=== PATIENT | female | born 1960 | race Caucasian/White ===

== ENCOUNTER 2017-06-05 05:33 | Outpatient (CLI) | payer OTHER ==
[~2017-06-05] VITALS: Ht 157.5 cm; Wt 82.6 kg
[~2017-06-05 05:33] MED LIST: ASP81CT PO; ATEN25TA PO; CALC-80 PO; CYCL5TAB11 PO; DOCU100T7 PO; FLAX100031 PO; LNS30CCR; MAGN400C PO; OMNARIS; SUMA1TAB PO
[2017-06-05] MEDS ORDERED: SUMA1TAB PO (10:04)
[2017-06-05] MEDS ORDERED: ATEN25TA PO (10:04)
[2017-06-05] MEDS ORDERED: MAGN500C16 PO (10:04)
[2017-06-05] MEDS ORDERED: ASPI-999 PO (10:04)
[2017-06-05] MEDS ORDERED: LANS30CA PO (10:04)
[2017-06-05] MEDS ORDERED: NAPR220T66 PO (10:05)
== END 2017-06-05 10:07 ==
LOC: PREOP 05:33
PROVIDERS: ATTEND Surgery
DX: Z01.818 Encounter for other preprocedural examination (principal); Z86.010 Personal history of colon polyps

== ENCOUNTER 2017-06-12 06:56 | Day surgery (SDC) | payer BC, OTHER ==
[~2017-06-12] VITALS: Ht 157.5 cm; Wt 82.6 kg
[~2017-06-12 06:56] MED LIST changes: +ASPI-999 PO; +LANS30CA PO; +MAGN500C16 PO; +NAPR220T66 PO
--- OUTSIDE RECORDS SUMMARY | 2017-06-12 07:00 | XMS REPORT | Continuity of Care Document ---
Author Author [facility] Organization [facility] Address Unknown Phone Unavailable Allergies Active Description Code Type Severity Reaction Onset Reported/Identified Relationship to Patient Clinical Status Yes PCN PCN Unknown HIVES 10/31/2011 Yes Penicillins [id number] Drug Allergy Mild HIVES 06/05/2017 Medications There is no data. Problems Date Dx Coded Attending Type Code Diagnosis Diagnosed By 06/05/2017 JULIANA VEGA MD Ot Z01.818 ENCOUNTER FOR OTHER PREPROCEDURAL EXAMIN 06/05/2017 JULIANA VEGA MD Ot Z86.010 PERSONAL HISTORY OF COLONIC POLYPS 06/06/2017 JULIANA VEGA MD Ot Z01.818 ENCOUNTER FOR OTHER PREPROCEDURAL EXAMIN 06/06/2017 JULIANA VEGA MD Ot Z86.010 PERSONAL HISTORY OF COLONIC POLYPS 06/09/2017 YOLIS COLORADO Ot 786.2 COUGH Procedures There is no data. Results There is no data. Encounters ACCT No. Visit Date/Time Discharge Status Pt. Type Provider Facility Loc./Unit Complaint [id number] 06/05/2017 05:33:00 06/05/2017 10:07:00 DIS Outpatient JULIANA VEGA MD [facility] PREOP COLONOSCOPY [id number] 05/31/2013 11:52:00 05/31/2013 23:59:59 CLS Outpatient YOLIS COLORADOP [facility] RAD COUGH [id number] 06/12/2017 08:00:00 PEN Preadmit JULIANA VEGA MD [facility] ENDO PERSONAL HX POLYPS
[2017-06-12] MEDS ORDERED: NS IV 500 ML 500 ML IV PRN (07:28)
[2017-06-12 07:31] VITALS: BP 132/88
[2017-06-12] MEDS ORDERED: fentaNYL INJECTION 100 MCG/2 ML AMP ONE (08:27)
[2017-06-12] MEDS ORDERED: MIDAZOLAM 2 MG/2 ML (VERSED) VIAL ONE ×4 (08:27)
[2017-06-12] MEDS: MIDAZOLAM 2 MG/2 ML (VERSED) VIAL IVP PRN ×3 (08:29→08:36)
[2017-06-12] MEDS: fentaNYL INJECTION 100 MCG/2 ML AMP IVP PRN ×2 (08:31→08:35)
--- NOTE | 2017-06-12 08:32 | Conscious Sedation/ASA ---
Conscious Sedation Pre-Proced Time Reviewed: 08:32 ASA Class: 2 Airway Mallampati Classification: ([place] appropriate class) I. II. III, IV Lungs Heart ASA score ASA 1: a normal healthy patient ASA 2: a patient with a mild systemic disease (mid diabetes, controlled hypertension, obesity ASA 3: a patient with a severe systemic disease that limits activity (angina , COPD, prior Myocardial infarction) ASA 4: a patient with an incapacitating disease that is a constant threat to life (CHF, renal failure) ASA 5: a moribund patient not expected to survive 24 hrs. (ruptured aneurysm) ASA 6: a declared brain patient whose organs are being harvested. For emergent operations, add the letter E after the classification Grade 1 Sedation Plan: Discussed options with patient/fam Note The patient is an appropriate candidate to undergo the planned procedure, sedation, and anesthesia. The patient immediately re-assessed prior to indication. JULIANA VEGA MD Jun 12, 2017 8:32 am
--- NOTE | 2017-06-12 08:32 | History & Physicial ---
History of Present Illness History of Present Illness Reason for visit/HPI to undergo surveillance colonoscopy. Personal history of adenomatous polyps and both her parents have demised of colon cancer. Date of Admission 06/12/17 Date Seen by Provider: Jun 12, 2017 Time Seen by Provider: 08:30 I consulted on this patient on 06/12/17 08:29 Attending Physician Juliana Long MD Admitting Physician Caren Anders DO Consult Allergies and Home Medications Allergies Coded Allergies: Penicillins (Verified Allergy, Mild, HIVES, 06/05/17) Home Medications Aspirin 81 Mg Tab.chew, 81 MG PO DAILY, (Reported) Atenolol 25 Mg Tablet, 25 MG PO DAILY, (Reported) Lansoprazole 30 Mg Capsule.dr, 30 MG PO BID, (Reported) Magnesium Oxide 500 Mg Capsule, 500 MG PO DAILY, (Reported) Naproxen Sodium 220 Mg Tablet, 220 MG PO DAILY, (Reported) Sumatriptan Succ/Naproxen Sod 1 Each Tablet, 1 EACH PO PRN, (Reported) Past [id number]-[id number]-Krafdw Hx Patient Social History Marrital Status: Employed/Student: employed Alcohol Use: Denies Use Recreational Drug Use: No Smoking Status: Never a Smoker Recent Foreign Travel: No Contact w/other who traveled: No Recent Hopitalizations: No Seasonal Allergies Seasonal Allergies: No Surgeries Yes Tubal Ligation Respiratory No Cardiovascular Yes Heart Murmur, Hypertension Neurological Yes Headaches /Migraines Reproductive System : No Hx Reproductive Disorders: No Sexually Transmitted Disease: No HIV/AIDS: No Female Reproductive Disorders: Denies Genitourinary No Gastrointestinal Yes Gastroesophageal Reflux, Polyps Endocrine History of Endocrine Disorders: No HEENT History of HEENT Disorders: No Loss of Vision: Bilateral Hearing Impairment: Denies Cancer No Blood Transfusions Adverse Reaction to a Blood Tr: No (N/A) Constitutional: no symptoms reported EENTM: no symptoms reported Respiratory: no symptoms reported Cardiovascular: no symptoms reported Gastrointestinal: no symptoms reported Genitourinary: no symptoms reported Musculoskeletal: no symptoms reported Skin: no symptoms reported Psychiatric/Neurological: No Symptoms Reported Physical Exam Vital Signs Vital Sign - Last 12Hours 06/12/17 07:31 Temp 98.1 Pulse 82 Resp 18 B/P (MAP) 132/88 (103) Pulse Ox 96 O2 Delivery Room Air Capillary Refill : General Appearance: No Apparent Distress HEENT: Normal ENT Inspection Neck: Normal Inspection Respiratory: Lungs Clear Cardiovascular: Regular Rate, Rhythm Gastrointestinal: Non Tender, Soft Rectal: Deferred Extremity: Normal Inspection Neurologic/Psychiatric: Alert, Oriented x3 Skin: Warm/Dry Assessment/Plan Assessment and Plan lady with a personal history of adenomatous polyps. Strong family history of colon cancer. For surveillance colonoscopy. Problems: JULIANA LONG MD Jun 12, 2017 8:31 am
--- NOTE | 2017-06-12 08:47 | Endo Procedure Record ---
Endo Procedure Report Date of Procedure Last Colonoscopy: Yes (2012) Jun 12, 2017 Surgeon (s) JULIANA VEGA MD Post Procedure/Op Diagnosis Normal colonoscopy Procedure Performed Colonoscopy to cecum Description of Procedure Anesthesia Type: Conscious Sedation Specimen(s) collected/removed none Description of the Procedure indication for the procedure: This lady, with a personal history of adenomatous polyps and a recent family history of colon cancer in both of her parents, came in for surveillance colonoscopy. Informed consent was obtained after reviewing the procedure in detail. Description of the procedure: She was placed in left lateral decubitus position and her vital signs were monitored. Conscious sedation was achieved using Versed and fentanyl. Digital rectal examination was unremarkable. The colonoscope was then introduced in the rectum and advanced all the way up to the cecum The quality of bowel preparation was excellent The scope was then withdrawn slowly and the mucosa examined in a systematic fashion. There was no abnormality She tolerated the procedure well and was taken back to the nursing area in a stable condition Copies To: JET BERRY XAVIER M MD Jun 12, 2017 8:47 am
--- NOTE | 2017-06-12 08:48 | Discharge Inst-Simple/Standard ---
Discharge Inst-Standard Discharge Medications New, Converted or Re-Newed RX: Other Patient Instructions/Follow Up Plan of Care/Instructions/FU: Repeat colonoscopy in 3 years Activity as Tolerated: Yes Discharge Diet: No Restrictions JULIANA VEGA MD Jun 12, 2017 8:48 am
[2017-06-12 09:05] VITALS: BP 114/80
[2017-06-12 09:23] VITALS: BP 137/82
[2017-06-12 09:25] VITALS: BP 137/82
== END 2017-06-12 09:31 | disposition home or self-care (01) ==
LOC: ENDO 06:56
PROVIDERS: ATTEND Surgery
DX: Z09 Encounter for follow-up examination after completed treatment for conditions other than malignant neoplasm (principal); Z86.010 Personal history of colon polyps; Z80.0 Family history of malignant neoplasm of digestive organs; Z79.899 Other long term (current) drug therapy; Z88.0 Allergy status to penicillin; K21.9 Gastro-esophageal reflux disease without esophagitis; I10 Essential (primary) hypertension

== ENCOUNTER → 2017-12-24 | Outpatient (CLI) | payer BC ==
--- NOTE | 2017-12-24 11:51 | Diagnostic Imaging Report ---
INDICATION: Left foot pain. COMPARISON: None. FINDINGS: Three views of the left foot demonstrate minimal degenerative joint disease. No bony erosion is seen. There is no fracture or dislocation. Calcaneal osteophytosis is seen. There is no foreign body. IMPRESSION: Minimal degenerative changes. No fracture or dislocation. Dictated by: Dictated on workstation # [id number]
== END ==
LOC: RAD 11:15
PROVIDERS: ATTEND Family Medicine
DX: M79.672 Pain in left foot (principal)
CPT/HCPCS: 73630

== ENCOUNTER 2019-10-11 18:22 | Emergency (ER) | payer SELFPAY ==
[~2019-10-11] VITALS: Ht 157.4 cm; Wt 90.7 kg
--- OUTSIDE RECORDS SUMMARY | 2019-10-11 18:29 | XMS REPORT | CCD ---
Author Author Claudia Anders D.O. Organization 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 Name Role Phone Caren Anders D.O., PP Unavailable CCM Unavailable Summary Purpose Interface Exchange Insurance Providers Payer name Policy type / Coverage type Covered constitution party ID Effective Begin Date Effective End Date Blue Cross Blue Shield Blue Cross/Blue Shield [id number] Unknown Family history Father Diagnosis Age At Onset Congestive heart failure Unknown Cancer Unknown Diabetes mellitus Type 2 Unknown Social History Social History Element Codes Description Effective Dates Tobacco history SNOMED CT: 1786250 Former smoker 02/03/2015 Allergies, Adverse Reactions, Alerts Substance Reaction Codes Entered Date Inactivated Date Status * NO KNOWN FOOD ALLERGIES Unknown 09/01/2009 No Inactiv e Date Active PENICILLINS hives Unknown 09/01/2009 No Inactive Date Active _ Unknown 09/01/2009 No Inactive Date Active Problems Condition Codes Effective Dates Condition Status Encounter for therapeutic drug level monitoring ICD-9: V58.83 ICD-10: Z51.81 01/15/2019 Active Essential (primary) hypertension ICD-9: 401.9 ICD-10: I10 06/30/2014 Active Acute bronchitis, unspecified ICD-9: 466.0 ICD-10: J20.9 07/20/2018 Active Acute recurrent maxillary sinusitis ICD-9: 461.0 ICD-10: J01.01 07/20/2018 Active Encounter for general adult medical examination withou t abnormal findings ICD-9: V70.9 ICD-10: Z00.00 08/03/2015 Active Mixed hyperlipidemia ICD-9: 272.4 ICD-10: E78.2 07/29/2014 Active Encounter for screening mammogram for malignant neopla sm of breast ICD-9: V76.12 ICD-10: Z12.31 08/02/2016 Active Migraine with aura, not intractable, without status mi grainosus ICD-9: 346.20 ICD-10: G43.109 06/11/2018 Active VACCINE FOR TDAP ICD-9: V06.1 ICD-10: Z23 06/11/2018 Active Encounter for gynecological examination (general) (routine) without abnormal findings ICD-9: V72.31 ICD-10: Z01.419 04/05/2017 Active Pain in unspecified joint ICD-9: 719.40 ICD-10: M25.50 04/05/2017 Active Persistent migraine 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 cerebra l infarction, intractable, with status migrainosus ICD-9: 346.53 ICD-10: G43.511 03/09/2015 Active Acute maxillary sinusitis, unspecified ICD-9: 461.0 ICD-10: J01.00 02/11/2016 Active Acute upper respiratory infection, unspecified ICD-9: 465.9 ICD-10: J06.9 02/11/2016 Active Urinary tract infection, site not specified ICD-9: 599 .0 ICD-10: N39.0 10/01/2015 Active Migraine, unspecified, not intractable, without status migrainosus ICD-9: 346.90 ICD-10: G43.909 06/30/2014 Active Anemia, unspecified ICD-9: 285.9 ICD-10: D64.9 07/29/2014 Active Dysuria ICD-9: 788.1 ICD-10: R30.0 05/26/2015 Active Menopausal and female climacteric states ICD-9: 627.2 ICD-10: N95.1 05/26/2015 Active Unspecified convulsions ICD-9: 780.39 ICD-10: R56.9 03/09/2015 Active ANEMIA NOS ICD-9: 285.9 07/29/2014 Active HYPERLIPIDEMIA NEC/NOS ICD-9: 272.4 07/29/2014 Active MALAISE AND FATIGUE ICD-9: 780.79 07/29/2014 Active GERD ICD-9: 530.81 06/30/2014 Active HYPERTENSION ICD-9: 401.9 06/30/2014 Active MIGRAINE NOS/NOT INTRCBL ICD-9: 346.90 06/30/2014 Active ROUTINE MEDICAL EXAM ICD-9: V70.0 06/30/2014 Active ALLERGIC RHINITIS ICD-9: 477.9 08/12/2013 Active BRONCHITIS, ACUTE ICD-9: 466.0 05/31/2013 Active HEMATURIA NOS ICD-9: 599.70 05/31/2013 Active FEBRILE ILLNESS ICD-9: 780.60 05/27/2013 Active DERMATITIS NOS ICD-9: 692.9 02/26/2013 Active Tinea cruris ICD-9: 110.3 02/26/2013 Active Myalgia ICD-9: 729.1 07/30/2012 Active Joint pain ICD-9: 719.40 06/04/2012 Active Hemorrhoid ICD-9: 455.6 10/07/2011 Active Rash ICD-9: 782.1 10/07/2011 Active DIZZINESS/VERTIGO ICD-9: 780.4 09/05/2011 Active EUSTACHIAN TUBE DYSFUNCTION ICD-9: 381.81 09/05/2011 Acti ve Plantar warts ICD-9: 078.12 09/05/2011 Active DIARRHEA ICD-9: 787.91 04/28/2011 Active PHARYNGITIS, ACUTE ICD-9: 462 04/28/2011 Active Finger pain ICD-9: 729.5 04/13/2011 Active Metrorrhagia ICD-9: 626.6 04/13/2011 Active Nasal pain ICD-9: 478.19 04/13/2011 Active Frequent urination ICD-9: 788.41 02/04/2011 Active Constipation ICD-9: 564.00 04/14/2010 Active COUGH ICD-9: 786.2 02/03/2010 Active SINUSITIS, ACUTE ICD-9: 461.9 02/03/2010 Active Migraine, variant ICD-9: 346.20 01/27/2010 Active ALTERED MENTAL STATUS ICD-9: 780.97 01/25/2010 Active CEPHALGIA ICD-9: 784.0 01/25/2010 Active TREMOR NEC ICD-9: 333.1 01/25/2010 Active ROUTINE GYNE EXAM ICD-9: V72.31 12/08/2009 Active Gastroesophageal reflux disease Unknown 09/01/2009 Active Hypertension Unknown 09/01/2009 Active PAIN, LOWER BACK ICD-9: 724.2 09/01/2009 Active SPASM OF MUSCLE ICD-9: 728.85 09/01/2009 Active URINARY TRACT INFECTION ICD-9: 599.0 08/26/2009 Active Medications Medication Codes Instructions Start Date Stop Date Status Fill Instructions Zantac 300 mg tablet RxNorm: 836021 TAKE ONE TABLET BY MOUTH EVERY NIGHT AT BEDTIME 07/15/2019 No Stop Date Active tizanidine 4 mg tablet RxNorm: 181959 TAKE ONE TABLET B Y MOUTH EVERY 8 HOURS NEEDED FOR MUSCLE SPASMS 06/18/2019 No Stop Date Active atenolol 25 mg tablet RxNorm: 033389 TAKE ONE TABLET BY MOUTH DAILY 06/18/2019 No Stop Date Active Naprosyn 500 mg tablet RxNorm: 588864 TAKE ONE TABLET BY MOUTH TWO TIMES A DAY 05/16/2019 No Stop Date Active atenolol 25 mg tablet RxNorm: 236515 Tablet(s) Oral PATEL E ONE TABLET BY MOUTH DAILY, 02/04/2019 06/03/2019 Inactive Maxalt 10 mg tablet RxNorm: 485167 TAKE ONE TABLET BY M OUTH AT HEADACHE ONSET. MAY REPEAT IN 2 HOURS IF HEADACHE REMAINS. MAX OF 2 TABLETS IN 24 HOURS 01/17/2019 02/12/2019 Inactive Zantac 300 mg tablet RxNorm: 940000 TAKE ONE TABLET BY MOUTH EVERY NIGHT AT BEDTIME 01/15/2019 03/15/2019 Inactive atenolol 25 mg tablet RxNorm: 845486 Tablet(s) TAKE ONE TABLET BY MOUTH DAILY, NEEDS APPT. BEFORE FURTHER REFILLS 01/08/2019 02/03/2019 Inactive atenolol 25 mg tablet RxNorm: 003817 Tablet(s) TAKE ONE TABLET BY MOUTH DAILY, NEEDS APPT. BEFORE FURTHER REFILLS 12/31/2018 02/04/2019 Inactive atenolol 25 mg tablet RxNorm: 256745 TAKE ONE TABLET BY MOUTH DAILY, NEEDS APPT. BEFORE FURTHER REFILLS 12/14/2018 12/31/2018 Inactive tizanidine 4 mg tablet RxNorm: 206121 TAKE ONE TABLET B Y MOUTH EVERY 8 HOURS NEEDED FOR MUSCLE SPASMS 11/16/2018 12/25/2018 Inactive Naprosyn 500 mg tablet RxNorm: 151544 1 Tablet(s) PO BID 10/01/2018 0 05/15/2019 Inactive atenolol 25 mg tablet RxNorm: 301958 Tablet(s) TAKE ONE TABLET BY MOUTH DAILY. 10/01/2018 12/13/2018 Inactive Maxalt 10 mg tablet RxNorm: 511204 1 Tablet(s) PO at he adache onset. May repeat in 2 hours if headache remains. Max of 2/24hr 10/01/2018 11/29/2018 In active atenolol 25 mg tablet RxNorm: 925928 TAKE ONE TABLET BY MOUTH DAILY. NEED APPOINTMENT BEFORE FURTHER REFILLS. 09/24/2018 09/30/2018 Inactive atenolol 25 mg tablet RxNorm: 826186 TAKE ONE TABLET BY MOUTH DAILY, NEEDS APPT. BEFORE FURTHER REFILLS 09/11/2018 09/23/2018 Inactive Naprosyn 500 mg tablet RxNorm: 640874 1 Tablet(s) PO BI D Due for annual labs and appointment 09/11/2018 09/30/2018 Inactive atenolol 25 mg tablet RxNorm: 167875 TAKE ONE TABLET BY MOUTH DAILY, NEEDS APPT. BEFORE FURTHER REFILLS 08/29/2018 09/10/2018 Inactive doxycycline hyclate 100 mg tablet RxNorm: 5086641 1 Tablet(s) PO BI D 07/27/2018 08/05/2018 Inactive doxycycline hyclate 100 mg tablet RxNorm: 9850318 1 Tablet(s) PO BI D 07/27/2018 07/26/2018 Inactive Ventolin HFA 90 mcg/actuation aerosol inhaler RxNorm: 0573152 2 Puff(s) INH Q6H 07/20/2018 08/18/2018 Inactive prednisone 20 mg tablet RxNorm: 842633 take 2 tabs for 3 days, then 1 tab for 3 days 07/20/2018 07/25/2018 Inactive azithromycin 250 mg tablet RxNorm: 760634 Take 2 tabs t cate and one tab days 2-5 07/20/2018 07/25/2018 Inactive z-pack atenolol 25 mg tablet RxNorm: 486764 TAKE ONE TABLET BY MOUTH DAILY, NEEDS APPT. BEFORE FURTHER REFILLS 07/13/2018 08/26/2018 Inactive mupirocin 2 % topical cream RxNorm: 124984 Application TOP BID 05/1601/14/2019 Inactive Valtrex 1 gram tablet RxNorm: 265615 1 Tablet(s) PO BID 06/11/2018 Inactive atenolol 25 mg tablet RxNorm: 049489 1 Tablet(s) PO QD NEEDS APPOINTMENT BEFORE FURTHER REFILLS 05/14/2018 07/12/2018 Inactive Naprosyn 500 mg tablet RxNorm: 082303 1 Tablet(s) PO BI D Due for annual labs and appointment 04/12/2018 05/11/2018 Inactive Zantac 300 mg tablet RxNorm: 958793 TAKE ONE TABLET BY MOUTH EVERY NIGHT AT BEDTIME 04/09/2018 07/07/2018 Inactive tizanidine 4 mg tablet RxNorm: 722196 TAKE ONE TABLET B Y MOUTH EVERY 8 HOURS NEEDED FOR MUSCLE SPASMS 02/20/2018 04/20/2018 Inactive Maxalt 10 mg tablet RxNorm: 251476 Tablet(s) TAKE ONE T ABLET BY MOUTH NEEDED FOR HEADACHE 01/09/2018 03/09/2018 Inactive Naprosyn 500 mg tablet RxNorm: 911986 Tablet(s) TAKE ON E TABLET BY MOUTH TWICE A DAY 01/08/2018 04/12/2018 Inactive atenolol 25 mg tablet RxNorm: 878889 1 Tablet(s) PO QD 01/08/2018 Inactive Naprosyn 500 mg tablet RxNorm: 205933 TAKE ONE TABLET BY MOUTH TWICE A DAY 12/10/2017 01/08/2018 Inactive tizanidine 4 mg tablet RxNorm: 189502 1 Tablet(s) PO Q8 H as needed for muscle spasm 11/27/2017 11/26/2017 Inactive Maxalt 10 mg tablet RxNorm: 431413 TAKE ONE TABLET BY M OUTH NEEDED FOR HEADACHE 11/13/2017 01/09/2018 Inactive Naprosyn 500 mg tablet RxNorm: 093523 TAKE ONE TABLET BY MOUTH TWICE A DAY 11/13/2017 12/09/2017 Inactive atenolol 25 mg tablet RxNorm: 022451 1 Tablet(s) PO QD 09/06/2017 Inactive Naprosyn 500 mg tablet RxNorm: 783685 1 Tablet(s) PO BID 09/04/2017 0 11/02/2017 Inactive Maxalt 10 mg tablet RxNorm: 418772 1 Tablet(s) PO as needed for headache 08/07/2017 11/12/2017 Inactive Naprosyn 500 mg tablet RxNorm: 707784 1 Tablet(s) PO BID 07/07/2017 0 09/04/2017 Inactive Naprosyn 500 mg tablet RxNorm: 862262 1 Tablet(s) PO BI D TAKE ONE TABLET BY MOUTH TWICE A DAY 06/08/2017 07/07/2017 Inactive tizanidine 4 mg tablet RxNorm: 407271 1 Tablet(s) PO Q8 H as needed for muscle spasm 05/10/2017 11/27/2017 Inactive atenolol 25 mg tablet RxNorm: 619545 1 Tablet(s) PO QD 05/10/2017 Inactive Maxalt 10 mg tablet RxNorm: 854802 1 Tablet(s) PO as needed for headache 05/10/2017 08/06/2017 Inactive atenolol 25 mg tablet RxNorm: 440257 1 Tablet(s) PO QD LAST REFILL---NEEDS UPDATED LAB AND APPOINTMENT 04/04/2017 05/03/2017 Inactive Zantac 300 mg tablet RxNorm: 941937 Tablet(s) TAKE ONE TABLET BY MOUTH EVERY NIGHT AT BEDTIME 04/03/2017 07/31/2017 Inactive atenolol 25 mg tablet RxNorm: 958258 1 Tablet(s) PO QD LAST REFILL---NEEDS UPDATED LAB AND APPOINTMENT 03/02/2017 04/04/2017 Inactive atenolol 25 mg tablet RxNorm: 494984 1 Tablet(s) PO QD LAST REFILL---NEEDS UPDATED LAB AND APPOINTMENT 02/01/2017 05/10/2017 Inactive Naprosyn 500 mg tablet RxNorm: 117541 1 Tablet(s) PO BI D TAKE ONE TABLET BY MOUTH TWICE A DAY 01/02/2017 06/08/2017 Inactive atenolol 25 mg tablet RxNorm: 721352 1 Tablet(s) PO QD Need Labs and appointment 12/26/2016 02/01/2017 Inactive Naprosyn 500 mg tablet RxNorm: 455329 1 Tablet(s) PO BI D TAKE ONE TABLET BY MOUTH TWICE A DAY 12/05/2016 01/02/2017 Inactive Naprosyn 500 mg tablet RxNorm: 385917 Tablet(s) TAKE ON E TABLET BY MOUTH TWICE A DAY 11/07/2016 12/05/2016 Inactive Naprosyn 500 mg tablet RxNorm: 034370 Tablet(s) TAKE ON E TABLET BY MOUTH TWICE A DAY 10/06/2016 11/07/2016 Inactive Naprosyn 500 mg tablet RxNorm: 391525 TAKE ONE TABLET BY MOUTH TWICE A DAY 09/04/2016 10/03/2016 Inactive Naprosyn 500 mg tablet RxNorm: 808028 TAKE ONE TABLET BY MOUTH TWICE A DAY 07/01/2016 08/29/2016 Inactive Naprosyn 500 mg tablet RxNorm: 908132 TAKE ONE TABLET BY MOUTH TWICE A DAY 04/27/2016 06/25/2016 Inactive Zantac 300 mg tablet RxNorm: 691209 TAKE ONE TABLET BY MOUTH EVERY NIGHT AT BEDTIME 03/09/2016 04/03/2017 Inactive Levaquin 500 mg tablet RxNorm: 415390 1 Tablet(s) PO QD 02/12/2016 Inactive azithromycin 250 mg tablet RxNorm: 401311 2 Tablet(s) P O on day one then 1 tab on days 2-5 01/25/2016 01/24/2016 Inactive Medrol (Camilo) 4 mg tablets in a dose pack RxNorm: 650745 Take as directed 01/25/2016 04/04/2017 Inactive Naprosyn 500 mg tablet RxNorm: 704005 1 Tablet(s) PO BID 01/15/2016 1 06/13/2015 Inactive Brisdelle 7.5 mg capsule RxNorm: 2852462 1 Capsule(s) PO QHS 201504/04/2017 Inactive atenolol 25 mg tablet RxNorm: 277690 TAKE ONE TABLET BY MOUTH DAILY 12/04/2015 12/26/2016 Inactive Maxalt 10 mg tablet RxNorm: 208420 1 Tablet(s) PO as needed for headache 10/05/2015 05/09/2017 Inactive Bactrim DS 800 mg-160 mg tablet RxNorm: 488071 1 Tablet(s) PO BID 0 10/01/2015 10/07/2015 Inactive Zantac 300 mg tablet RxNorm: 615114 Tablet(s) TAKE ONE TABLET BY MOUTH EVERY NIGHT AT BEDTIME 10/01/2015 11/29/2015 Inactive atenolol 25 mg tablet RxNorm: 218181 TAKE ONE TABLET BY MOUTH DAILY 06/09/2015 08/07/2015 Inactive Naprosyn 500 mg tablet RxNorm: 793559 TAKE ONE TABLET BY MOUTH TWICE A DAY 05/29/2015 01/15/2016 Inactive Zantac 300 mg tablet RxNorm: 296491 Tablet(s) TAKE ONE TABLET BY MOUTH EVERY NIGHT AT BEDTIME 03/30/2015 10/01/2015 Inactive Compazine 10 mg tablet RxNorm: 842414 1 Tablet(s) PO TID as nee ded for nausea 03/10/2015 05/26/2015 Inactive Prevacid 30 mg capsule,delayed release RxNorm: 514481 C apsule(s) TAKE ONE CAPSULE BY MOUTH ONCE A DAY 12/19/2014 05/17/2015 Inactive Naprosyn 500 mg tablet RxNorm: 156865 1 Tablet(s) PO BID 12/02/2014 1 Inactive Zantac 300 mg tablet RxNorm: 782684 TAKE ONE TABLET BY MOUTH EVERY NIGHT AT BEDTIME 09/18/2014 03/30/2015 Inactive Naprosyn 500 mg tablet RxNorm: 804873 1 Tablet(s) PO BID 09/04/2014 0 12/02/2014 Inactive atenolol 25 mg tablet RxNorm: 119653 1 Tablet(s) PO QD 07/17/2014 Inactive Zantac 300 mg tablet RxNorm: 514981 1 Tablet(s) PO QHS 06/30/201410/2014 Inactive Lamisil 250 mg tablet RxNorm: 046703 1 Tablet(s) PO QD 06/30/2014 Inactive Treximet 85 mg-500 mg tablet RxNorm: 520948 Tablet(s) PO PRN as needed 06/30/2014 03/09/2015 Inactive Prevacid 30 mg capsule,delayed release RxNorm: 654182 T VI ONE CAPSULE BY MOUTH ONCE A DAY 06/16/2014 12/19/2014 Inactive Treximet 85 mg-500 mg tablet RxNorm: 657490 Tablet(s) PO PRN as needed 06/06/2014 06/29/2014 Inactive Pepcid 20 mg tablet RxNorm: 421675 1 Tablet(s) PO QHS 03/19/201406/15 Inactive [SAVINGS FOR UNINSURED PATIENTS -- BIN:0 89977, PCN: [id number], Group: [id number], ID# [id number], Process claim through [employer], for questions: . THIS IS NOT INSURANCE.] atenolol 25 mg tablet RxNorm: 018404 1 Tablet(s) PO QD 01/15/201409/2014 Inactive Pepcid 20 mg tablet RxNorm: 387449 1 Tablet(s) PO QHS 12/23/201312/13 Inactive Pepcid 20 mg tablet RxNorm: 303002 1 Tablet(s) PO QHS 12/23/201309/2013 Inactive [SAVINGS FOR UNINSURED PATIENTS -- BIN:0 10630, PCN: [id number], Group: [id number], ID# [id number], Process claim through [employer], for questions: . THIS IS NOT INSURANCE.] Prevacid 30 mg capsule,delayed release RxNorm: 239932 1 Capsule (s) PO QD 12/23/2013 06/15/2014 Inactive [SAVINGS FOR UNINSUR ED PATIENTS -- BIN:[id number], PCN: [id number], Group: [id number], ID# [id number], Process claim through [employer], for questions: . THIS IS NOT INSURANCE.] loratadine 10 mg tablet RxNorm: 631851 TAKE ONE TABLET BY MOUTH EVERY MORNING 09/09/2013 04/06/2014 Inactive nystatin-triamcinolone 100,000 unit/g-0.1 % topical cream Rx Norm: 1047544 1 Application TOP QHS to rash 08/22/2013 06/29/2014 Inactive prednisone 20 mg tablet RxNorm: 326596 1 Tablet(s) PO BID 08/12/2013 08/18/2013 Inactive loratadine 10 mg tablet RxNorm: 726407 1 Tablet(s) PO QAM 08/12/2013 09/08/2013 Inactive Treximet 85 mg-500 mg tablet RxNorm: 952641 Tablet(s) PO PRN 201307/21/2013 Inactive atenolol 25 mg tablet RxNorm: 535224 1 Tablet(s) PO QD 07/22/201307/2013 Inactive Prevacid 30 mg capsule,delayed release RxNorm: 906161 1 Capsule (s) PO BID 07/22/2013 12/22/2013 Inactive nitrofurantoin macrocrystal 100 mg capsule RxNorm: 032744 1 Cap violeta(s) PO BID 05/31/2013 06/06/2013 Inactive albuterol sulfate HFA 90 mcg/actuation aerosol inhaler RxNor m: 912945 2 Puff(s) INH QID 05/31/2013 06/13/2013 Inactive azithromycin 250 mg tablet RxNorm: 131195 2 Tablet(s) PO QD 014 06/02/2013 Inactive Prevacid 30 mg capsule,delayed release RxNorm: 512461 1 Capsule (s) PO BID 03/20/2013 07/21/2013 Inactive Lamisil 250 mg tablet RxNorm: 918605 1 Tablet(s) PO QD 02/26/201304/2014 Inactive betamethasone valerate 0.1 % Topical Cream RxNorm: 882364 1 Tom lication TOP BID 11/29/2012 12/12/2012 Inactive Diflucan 100 mg tablet RxNorm: 821339 1 Tablet(s) PO QD 11/29/2012 Inactive nystatin 100,000 unit/gram Topical Powder RxNorm: 656843 1 Gram(s) TOP BID apply to affected areas twice daily 11/29/2012 12/08/2012 Inactive Medrol (Camilo) 4 mg tablets in a dose pack RxNorm: 665410 Tablet(s) PO as directed 11/12/2012 02/25/2013 Inactive Levaquin 750 mg tablet RxNorm: 498031 1 Tablet(s) PO QD antibiotic 11/12/2012 11/21/2012 Inactive Prevacid 30 mg capsule,delayed release RxNorm: 396473 1 Capsule (s) PO BID 09/17/2012 03/15/2013 Inactive azithromycin 250 mg tablet RxNorm: 746779 2 Tablet(s) PO QD 013 08/06/2012 Inactive nystatin 100,000 unit/g Ointment RxNorm: 059077 1 Gram( s) TOP BID apply to affected area twice daily 06/21/2012 06/30/2012 Inactive nystatin 100,000 unit/g Ointment RxNorm: 567066 1 Gram( s) TOP BID apply to affected area twice daily 06/04/2012 06/13/2012 Inactive Prevacid 30 mg capsule,delayed release RxNorm: 840143 1 Capsule (s) PO BID 03/01/2012 08/27/2012 Inactive Omnaris 50 mcg Nasal [place] RxNorm: 126622 2 [place] NASAL QD each nostril 12/21/2011 03/09/2015 Inactive betamethasone valerate 0.1 % Topical Cream RxNorm: 313084 1 Tom lication TOP BID 10/07/2011 10/20/2011 Inactive dibucaine 1 % Rectal Ointment RxNorm: 033792 1 RTL TID 10/07/2011 Inactive Proctofoam 1 % Topical Foam RxNorm: 724469 1 TOP BID 10/07/201107/2011 Inactive Treximet 85 mg-500 mg Tab RxNorm: 388423 Tablet(s) PO T vi 1 at headache onset and may repeat 1 in two hours if needed 09/05/2011 No Stop Date Active Prevacid 30 mg capsule,delayed release RxNorm: 991619 1 Capsule (s) PO BID 08/30/2011 02/25/2012 Inactive Flexeril 5 mg tablet RxNorm: 018202 1-2 Tablet(s) PO QHS 08/05/2011 0 06/29/2014 Inactive prn spasm cefuroxime axetil 500 mg Tab RxNorm: 308252 1 Tablet(s) PO BID 04/1405/07/2011 Inactive Flexeril 5 mg Tab RxNorm: 766905 1-2 Tablet(s) PO QHS 04/20/201107/14 Inactive prn spasm Prevacid 30 mg Capsule, delayed release RxNorm: 872829 1 Capsul e(s) PO BID 02/23/2011 08/30/2011 Inactive Prevacid 30 mg Cap RxNorm: 946408 1 Capsule(s) PO QD 02/21/201102/22 Inactive Pyridium 100 mg Tab RxNorm: 2040208 1 Tablet(s) PO TID 02/04/2011 Inactive will turn urine orange/red. Septra DS 800 mg-160 mg Tab RxNorm: 964915 1 Tablet(s) PO BID 02/0402/08/2011 Inactive lisinopril 10 mg Tab RxNorm: 763850 1 Tablet(s) PO QD 12/06/201012/14 Inactive amitriptyline 10 mg Tab RxNorm: 912917 2 Tablet(s) PO QD 12/06/2010 0 01/04/2011 Inactive Treximet 85 mg-500 mg Tab RxNorm: 064787 1 Tablet(s) PO 12/02/2010 Inactive at WONG onset, may repeat i po in 2hrs if WONG remains lisinopril 20 mg Tab RxNorm: 473879 1 Tablet(s) PO QD 09/10/201011/13 Inactive Prevacid 30 mg Cap RxNorm: 528068 1 Capsule(s) PO BID 08/09/201002/12 Inactive Flexeril 5 mg Tab RxNorm: 792921 1-2 Tablet(s) PO QHS prn spasm 05/200904/20/2011 Inactive Topamax 50 mg Tab RxNorm: 750473 1 Tablet(s) PO BID 02/16/20102009 Inactive Topamax 50 mg Tab RxNorm: 166197 1/2 Tablet(s) PO QHS for 1wk t hen 1 po QHS 02/15/2010 02/15/2010 Inactive Cefdinir 300 mg Cap RxNorm: 834793 1 Capsule(s) PO BID One tablet PO twice daily for 10 days. 02/03/2010 02/12/2010 Inactive Topamax 50 mg Tab RxNorm: 635424 1/2 Tablet(s) PO QHS for 1wk t hen 1 po QHS 01/27/2010 02/14/2010 Inactive Flexeril 5 mg Tab RxNorm: 168458 1 Tablet(s) PO TID prn spasm 01/2502/15/2010 Inactive Macrobid 100 mg Cap RxNorm: 2496479 1 Capsule(s) PO BID 09/01/2009 Inactive Prevacid 30 mg Cap RxNorm: 498671 1 Capsule(s) PO BID 09/01/200909/12 Inactive Flexeril 5 mg Tab RxNorm: 837421 1 Tablet(s) PO TID prn spasm 09/0109/30/2009 Inactive lisinopril 20 mg Tab RxNorm: 003299 1 Tablet(s) PO QD 08/31/200908/14 Inactive atenolol 25 mg Tab RxNorm: 278024 1 Tablet(s) PO QD No Start Date Inactive magnesium 100 mg tablet RxNorm: 1 Tablet(s) PO QD No Start Date Active Calcium with Vitamin D 600 mg-400 unit Tab RxNorm: 923668 1 Tab let(s) PO QD No Start Date Active Aspirin 81 mg Tab RxNorm: 793731 1 Tablet(s) PO QD No Start Date Active Brisdelle 7.5 mg capsule RxNorm: 3472259 1 Capsule(s) PO QHS No Sta rt Date 12/09/2015 Inactive Prevacid 30 mg Cap RxNorm: 985003 1 Capsule(s) PO QD No Start Date Inactive Ultram 50 mg Tab RxNorm: 043171 2 Tablet(s) PO QID prn headache No Start Date 04/13/2010 Inactive tizanidine 4 mg tablet RxNorm: 850942 1 Tablet(s) PO Q8 H as needed for muscle spasm No Start Date 05/09/2017 Inactive nystatin-triamcinolone 100,000 unit/g-0.1 % topical cream Rx Norm: 3632420 1 Application TOP QHS to rash No Start Date 08/21/2013 Inactive Imitrex 100 mg tablet RxNorm: 435205 1 Tablet(s) PO at WONG onset-September repeat in 6hours as needed No Start Date 08/03/2015 Inactive Treximet 85 mg-500 mg Tab RxNorm: 553247 1 Tablet(s) PO at WONG onset, may repeat i po in 2hrs if WONG remains No Start Date 12/02/2010 Inactive alprazolam 0.25 mg tablet RxNorm: 768088 1 Tablet(s) PO QPM No Star t Date 08/03/2015 Inactive amitriptyline 25 mg Tab RxNorm: 573803 1 Tablet(s) PO QAM No Start Date 12/06/2010 Inactive amitriptyline 10 mg Tab RxNorm: 710838 Tablet(s) PO Patel e 4 tablets by mouth 1 week before period and week of period and 3 tablets other 2 weeks of month No Start Date 09/04/2011 Inactive Omnaris 50 mcg Nasal [place] RxNorm: 8065026 2 [place] NASAL QD each nostril No Start Date 12/20/2011 Inactive sertraline 25 mg tablet RxNorm: 016221 1 Tablet(s) PO QD No Start D ate 08/03/2015 Inactive atenolol 25 mg tablet RxNorm: 085198 1 Tablet(s) PO QD No Start Date 07/21/2013 Inactive hydrochlorothiazide 25 mg tablet RxNorm: 560186 1 Tablet(s) PO QAM No Start Date 05/26/2015 Inactive Maxalt 10 mg tablet RxNorm: 389031 Tablet(s) PO as needed for h eadache No Start Date 10/04/2015 Inactive atenolol 25 mg Tab RxNorm: 890009 1/2 Tablet(s) PO QD No Start Date 0 12/20/2011 Inactive Medrol (Camilo) 4 mg tablets in a dose pack RxNorm: 408147 Tablet(s) PO as directed No Start Date 11/11/2012 Inactive Naprosyn 500 mg tablet RxNorm: 182252 1 Tablet(s) PO BID No Start D ate 09/04/2014 Inactive promethazine-codeine 6.25 mg-10 mg/5 mL syrup RxNorm: 428251 PO No Start Date 06/29/2014 Inactive Flexeril 5 mg Tab RxNorm: 212335 2 Tablet(s) PO QHS No Start Date Inactive Treximet 85 mg-500 mg tablet RxNorm: 697417 Tablet(s) PO PRN No Sta rt Date 07/21/2013 Inactive cyclobenzaprine 5 mg tablet RxNorm: 092494 1-2 Tablet(s) PO QHS No Start Date 03/09/2015 Inactive atenolol 25 mg tablet RxNorm: 034401 1 Tablet(s) PO QD No Start Date 12/25/2016 Inactive lisinopril 20 mg Tab RxNorm: 217949 1 Tablet(s) PO QD No Start Date 0 10/06/2011 Inactive Topamax 50 mg Tab RxNorm: 981738 1 Tablet(s) PO BID No Start Date 08/2009 Inactive Treximet 85 mg-500 mg Tab RxNorm: 985717 Tablet(s) PO T vi 1 at headache onset and may repeat 1 in two hours if needed No Start Date 09/04/2011 Inactive Stool Softener 100 mg Cap RxNorm: 9790715 3 Capsule(s) PO QD No Sta rt Date 06/29/2014 Inactive flax seed oil RxNorm: 1 PO QD No Start Date 03/09/2015 Inactive Medication Administered No Medication Administered data Immunizations Vaccine Codes Date Status Tetanus, Diptheria, Pertussis CVX: 115 06/11/2018 Co mplete Results Observation Observation Code Item Item Code Result Date S ervice Location COMPREHENSIVE METABOLIC 03905 AST 15 U/L 2018 Unknown COMPREHENSIVE METABOLIC 38953 ALT 15 U/L 2018 Unknown COMPREHENSIVE METABOLIC 72503 BUN 19 mg/dL 2018 Unknown COMPREHENSIVE METABOLIC 36999 ALBUMIN 4.3 g/dL 2018 Unknown COMPREHENSIVE METABOLIC 08063 CHLORIDE 106 mmol/L 06/29 Unknown COMPREHENSIVE METABOLIC 34147 Bili Total 0.6 mg/dL 06/29 Unknown COMPREHENSIVE METABOLIC 03310 ALK PHOS 82 U/L 2018 Unknown COMPREHENSIVE METABOLIC 82401 SODIUM 141 mmol/L 06/29 Unknown COMPREHENSIVE METABOLIC 85230 CREATININE 0.66 mg/dL 06/15 Unknown COMPREHENSIVE METABOLIC 14141 CALCIUM 9.6 mg/dL 2018 Unknown COMPREHENSIVE METABOLIC 94355 POTASSIUM 4.3 mmol/L 06/29 Unknown COMPREHENSIVE METABOLIC 89871 Total Protein 7.0 g/dL Unknown COMPREHENSIVE METABOLIC 20995 Glucose 102 mg/dL 2018 Unknown COMPREHENSIVE METABOLIC 59558 Bicarbonate 29 mmol/L 06/15 Unknown COMPREHENSIVE METABOLIC 01480 AGAP 6 mmol/L 2018 Unknown FREE T4 76660 T4 Free 1.04 ng/dL 06/29/2018 Unknown GFR CALC 1053479 GFR Non Afr Amr >60 mL/min 06/29/2018 Un known GFR CALC 3469212 GFR Afr Amr >60 mL/min 06/29/2018 Unknow n LIPID GROUP 71708 Cholesterol 197 mg/dL 06/29/2018 Unkno wn LIPID GROUP 21338 Triglyceride 70 mg/dL 06/29/2018 Unkn own LIPID GROUP 99067 HDL CHOLESTEROL 45 mg/dL 06/29/2018 U nknown LIPID GROUP 96438 Chol/HDL Ratio 4.38 ratio 06/29/2018 U nknown LIPID GROUP 52729 NON-HDL Chol 152 mg/dL 06/29/2018 Unkn own LIPID GROUP 25966 LDL Cholesterol 138 mg/dL 06/29/2018 U nknown THYROID STIMULATING HORMONE 25069 TSH 1.477 uIU/mL 06/29/2018 Unknown COMPLETE BLOOD COUNT 1695563 WBC 5.2 10e9/L 06/29/19 19 Unknown COMPLETE BLOOD COUNT 4930045 RBC 4.93 10e12/L 2018 Unknown COMPLETE BLOOD COUNT [id number] HEMOGLOBIN 14.3 g/dL 06/29/19 19 Unknown COMPLETE BLOOD COUNT [id number] HEMATOCRIT 42.9 % 06/29/19 19 Unknown COMPLETE BLOOD COUNT 7829956 MCV 87.0 fL 9 Unknown COMPLETE BLOOD COUNT 9138529 MCH 29.0 pg 9 Unknown COMPLETE BLOOD COUNT 3323625 MCHC 33.3 g/dL 9 Unknown COMPLETE BLOOD COUNT 6576748 PLATELET COUNT 289 10e9/L Unknown COMPLETE BLOOD COUNT 9143156 Mean Plt Volume 10.6 fL Unknown COMPLETE BLOOD COUNT 3116246 Neut Auto 74.1 % 9 Unknown COMPLETE BLOOD COUNT 9496344 Lymph Auto 14.7 % 06/29/19 19 Unknown COMPLETE BLOOD COUNT 7306743 [place] Auto 8.3 % 9 Unknown COMPLETE BLOOD COUNT 9929846 RDW 13.7 % 9 Unknown COMPLETE BLOOD COUNT 4798601 Eos Auto 2.7 % 9 Unknown COMPLETE BLOOD COUNT 8572811 Baso Auto 0.2 % 9 Unknown COMPLETE BLOOD COUNT 8394179 Neutrophil Abs 3.85 10e9/L Unknown COMPLETE BLOOD COUNT 3801417 Lymphocyte Abs 0.76 10e9/L Unknown COMPLETE BLOOD COUNT 1291122 Monocyte Abs 0.43 10e9/L 06/15 Unknown COMPLETE BLOOD COUNT 3417047 Eosinophil Abs 0.14 10e9/L Unknown COMPLETE BLOOD COUNT 6574731 RDW-SD 42.7 fL 9 Unknown COMPLETE BLOOD COUNT 9377433 Basophil Abs 0.01 10e9/L 06/15 Unknown IRON 79843 IRON TEST 42 UG/DL 07/31/2014 Unknown FERRITIN 32641 FERRITIN 10 NG/ML 07/31/2014 Unknown VITAMIN B 12 FOLIC ACID 54140|90608 VIT B 12 233 PG/ML 07/13 Unknown VITAMIN B 12 FOLIC ACID 44152|88444 FOLIC ACID 8.7 NG/ML Unknown COMPLETE BLOOD COUNT [id number] WBC 6.4 10e9/L 07/30/19 15 Unknown COMPLETE BLOOD COUNT 0737494 RBC 4.36 10e12/L 2014 Unknown COMPLETE BLOOD COUNT 1502908 HGB 11.5 g/dL 5 Unknown COMPLETE BLOOD COUNT 4175726 HCT DET 35.3 % 5 Unknown COMPLETE BLOOD COUNT 8326779 MCV 81.0 fL 5 Unknown COMPLETE BLOOD COUNT 6442294 MCH 26.4 pg 5 Unknown COMPLETE BLOOD COUNT 4105482 MCHC 32.6 g/dL 5 Unknown COMPLETE BLOOD COUNT 8009927 PLT 329 10e9/L 07/30/19 15 Unknown COMPLETE BLOOD COUNT 4838638 MPV 10.4 fL 5 Unknown COMPLETE BLOOD COUNT 6393931 ROLAND % 69.6 % 5 Unknown COMPLETE BLOOD COUNT 5137415 LY % 21.3 % 5 Unknown COMPLETE BLOOD COUNT 5729095 MON % 6.8 % 5 Unknown COMPLETE BLOOD COUNT 4527532 EOS % 2.0 % 5 Unknown COMPLETE BLOOD COUNT 6462214 BASO % 0.3 % 5 Unknown COMPLETE BLOOD COUNT 7267384 RDW 15.9 % 5 Unknown COMPLETE BLOOD COUNT 2044028 ABS ROLAND 4.45 10e9/L 015 Unknown COMPLETE BLOOD COUNT 9963981 ABS LYMPH 1.36 10e9/L 015 Unknown COMPLETE BLOOD COUNT 3471656 ABS MONO 0.44 10e9/L 015 Unknown COMPLETE BLOOD COUNT 6132263 ABS EOS 0.13 10e9/L 015 Unknown COMPLETE BLOOD COUNT 4291813 ABS BASO 0.02 10e9/L 015 Unknown COMPLETE BLOOD COUNT 6586080 RDW-SD 46.1 fL 5 Unknown LIPID GROUP 59769 HDL TEST 41 MG/DL 07/29/2014 Unknown LIPID GROUP 24038 TRIG 92 MG/DL 07/29/2014 Unknown LIPID GROUP 77017 TEST LDL 118 MG/DL 07/29/2014 Unknown LIPID GROUP 63085 CHOL 177 MG/DL 07/29/2014 Unknown LIPID GROUP 97330 RCHOL/HDL 4.32 RATIO 07/29/2014 Unknow n LIPID GROUP 19445 NON-HDL CH 136 MG/DL 07/29/2014 Unknow n GFR CALC 5287421 GFR AA >60 ML/MIN 07/29/2014 Unknown GFR CALC 3470675 GFR NON-AA >60 ML/MIN 07/29/2014 Unknown FREE T4 85681 FREE T4 1.10 NG/DL 07/29/2014 Unknown COMPREHENSIVE METABOLIC 85774 AST 13 U/L 2014 Unknown COMPREHENSIVE METABOLIC 93505 ALT 12 IU/L 2014 Unknown COMPREHENSIVE METABOLIC 95317 BUN 16 MG/DL 2014 Unknown COMPREHENSIVE METABOLIC 38462 ALBUMIN 4.1 GM/DL 2014 Unknown COMPREHENSIVE METABOLIC 20575 CHLORIDE 106 MMOL/L 07/29 Unknown COMPREHENSIVE METABOLIC 39186 BILI TOT 0.4 MG/DL 2014 Unknown COMPREHENSIVE METABOLIC 85255 ALK PHOS 77 U/L 2014 Unknown COMPREHENSIVE METABOLIC 97727 SODIUM 137 MMOL/L 07/29 Unknown COMPREHENSIVE METABOLIC 99943 CREATININE 0.65 MG/DL 07/13 Unknown COMPREHENSIVE METABOLIC 02437 CALCIUM 9.0 MG/DL 2014 Unknown COMPREHENSIVE METABOLIC 93380 POTASSIUM 4.0 MMOL/L 07/29 Unknown COMPREHENSIVE METABOLIC 83496 PROT TOT 6.3 GM/DL 2014 Unknown COMPREHENSIVE METABOLIC 08990 Glucose 98 MG/DL 2014 Unknown COMPREHENSIVE METABOLIC 08909 BICARB 26 MMOL/L 2014 Unknown COMPREHENSIVE METABOLIC 66564 ANION GAP 5 MEQ/L 2014 Unknown THYROID STIMULATING HORMONE 09122 TSH 1.678 uIU/ML 07/29/2014 Unknown GFR CALC 5409066 GFR AA >60 ML/MIN 02/26/2013 Unknown GFR CALC 3794294 GFR NON-AA >60 ML/MIN 02/26/2013 Unknown THYROID STIMULATING HORMONE 86824 TSH 1.635 uIU/ML 02/26/2013 Unknown COMPLETE BLOOD COUNT 7661819 WBC 7.8 10e9/L 02/27/20 13 Unknown COMPLETE BLOOD COUNT 7113374 RBC 4.60 10e12/L 2012 Unknown COMPLETE BLOOD COUNT 2479050 HGB 12.7 g/dL 3 Unknown COMPLETE BLOOD COUNT 7264992 HCT DET 38.1 % 3 Unknown COMPLETE BLOOD COUNT 2586950 MCV 82.8 fL 3 Unknown COMPLETE BLOOD COUNT 8422992 MCH 27.6 pg 3 Unknown COMPLETE BLOOD COUNT 7000663 MCHC 33.3 g/dL 3 Unknown COMPLETE BLOOD COUNT 7563005 PLT 324 10e9/L 02/27/20 13 Unknown COMPLETE BLOOD COUNT 4762707 MPV 10.2 fL 3 Unknown COMPLETE BLOOD COUNT 6300996 ROLAND % 72.0 % 3 Unknown COMPLETE BLOOD COUNT 7054369 LY % 20.1 % 3 Unknown COMPLETE BLOOD COUNT 1844144 MON % 6.3 % 3 Unknown COMPLETE BLOOD COUNT 8672584 EOS % 1.3 % 3 Unknown COMPLETE BLOOD COUNT 3555383 BASO % 0.3 % 3 Unknown COMPLETE BLOOD COUNT 7553836 RDW 14.4 % 3 Unknown COMPLETE BLOOD COUNT 1288460 ABS ROLAND 5.62 10e9/L 013 Unknown COMPLETE BLOOD COUNT 0350124 ABS LYMPH 1.57 10e9/L 013 Unknown COMPLETE BLOOD COUNT 0707588 ABS MONO 0.49 10e9/L 013 Unknown COMPLETE BLOOD COUNT 6344714 ABS EOS 0.10 10e9/L 013 Unknown COMPLETE BLOOD COUNT 1971422 ABS BASO 0.02 10e9/L 013 Unknown COMPLETE BLOOD COUNT 1176243 RDW-SD 42.8 fL 3 Unknown COMPREHENSIVE METABOLIC 69025 AST 15 U/L 2012 Unknown COMPREHENSIVE METABOLIC 29088 ALT 14 IU/L 2012 Unknown COMPREHENSIVE METABOLIC 03227 BUN 14 MG/DL 2012 Unknown COMPREHENSIVE METABOLIC 71898 ALBUMIN 4.2 GM/DL 2012 Unknown COMPREHENSIVE METABOLIC 36873 CHLORIDE 104 MMOL/L 02/26 Unknown COMPREHENSIVE METABOLIC 79595 BILI TOT 0.6 MG/DL 2012 Unknown COMPREHENSIVE METABOLIC 15374 ALK PHOS 71 U/L 2012 Unknown COMPREHENSIVE METABOLIC 37453 SODIUM 136 MMOL/L 02/26 Unknown COMPREHENSIVE METABOLIC 92829 CREATININE 0.62 MG/DL 02/12 Unknown COMPREHENSIVE METABOLIC 95258 CALCIUM 9.5 MG/DL 2012 Unknown COMPREHENSIVE METABOLIC 40247 POTASSIUM 4.1 MMOL/L 02/26 Unknown COMPREHENSIVE METABOLIC 55737 PROT TOT 6.7 GM/DL 2012 Unknown COMPREHENSIVE METABOLIC 34364 Glucose 92 MG/DL 2012 Unknown COMPREHENSIVE METABOLIC 35607 BICARB 26 MMOL/L 2012 Unknown COMPREHENSIVE METABOLIC 32015 ANION GAP 6 MEQ/L 2012 Unknown LIPID GROUP 87021 HDL TEST 45 MG/DL 02/26/2013 Unknown LIPID GROUP 27985 TRIG 107 MG/DL 02/26/2013 Unknown LIPID GROUP 78137 TEST LDL 129 MG/DL 02/26/2013 Unknown LIPID GROUP 34651 CHOL 195 MG/DL 02/26/2013 Unknown LIPID GROUP 95751 RCHOL/HDL 4.33 RATIO 02/26/2013 Unknow n FREE T4 00676 FREE T4 1.07 NG/DL 02/26/2013 Unknown MYCOPLASMA ANTIBODY, IFA [id number] MYCO G IFA 1:128 06/2012 Unknown MYCOPLASMA ANTIBODY, IFA [id number] MYCO M IFA <1:10 06/2012 Unknown MYCOPLASMA ANTIBODY, IFA [id number] MYCO INTER SEE BELO 06/2012 Unknown COMPLETE BLOOD COUNT 0680294 WBC 6.0 10e9/L 11/13/19 13 Unknown COMPLETE BLOOD COUNT 9984464 RBC 4.68 10e12/L 2012 Unknown COMPLETE BLOOD COUNT 8505689 HGB 12.9 g/dL 3 Unknown COMPLETE BLOOD COUNT 2584356 HCT DET 38.7 % 3 Unknown COMPLETE BLOOD COUNT 6070217 MCV 82.7 fL 3 Unknown COMPLETE BLOOD COUNT 2248481 MCH 27.6 pg 3 Unknown COMPLETE BLOOD COUNT 0417113 MCHC 33.3 g/dL 3 Unknown COMPLETE BLOOD COUNT 3699350 PLT 297 10e9/L 11/13/19 13 Unknown COMPLETE BLOOD COUNT 4236531 MPV 11.1 fL 3 Unknown COMPLETE BLOOD COUNT 3535419 ROLAND % 63.8 % 3 Unknown COMPLETE BLOOD COUNT 1148404 LY % 28.2 % 3 Unknown COMPLETE BLOOD COUNT 3702169 MON % 6.6 % 3 Unknown COMPLETE BLOOD COUNT 0505834 EOS % 1.2 % 3 Unknown COMPLETE BLOOD COUNT 9376586 BASO % 0.2 % 3 Unknown COMPLETE BLOOD COUNT 1726720 RDW 14.9 % 3 Unknown COMPLETE BLOOD COUNT 6824644 ABS ROLAND 3.83 10e9/L 013 Unknown COMPLETE BLOOD COUNT 9008637 ABS LYMPH 1.69 10e9/L 013 Unknown COMPLETE BLOOD COUNT 6591663 ABS MONO 0.40 10e9/L 013 Unknown COMPLETE BLOOD COUNT 2148920 ABS EOS 0.07 10e9/L 013 Unknown COMPLETE BLOOD COUNT 9766244 ABS BASO 0.01 10e9/L 013 Unknown COMPLETE BLOOD COUNT 2738267 RDW-SD 44.8 fL 3 Unknown HEMOGLOBIN A1C (GLYCOSYLATED) 5363994 A1C HPLC 33165-4 5.1 % 06/06/2012 Unknown RA FACTOR 57165 RA FACTOR <20.0 IU/ML 06/06/2012 Unknown ANTINUCLEAR ANTIBODY SCREEN 81312 FERDINAND SCR <1:80 Unknown INSULIN SERUM 21576 INSULIN 12.2 mU/L 06/06/2012 Unkno wn COMPREHENSIVE METABOLIC 41282 AST 13 U/L 2012 Unknown COMPREHENSIVE METABOLIC 16542 ALT 13 IU/L 2012 Unknown COMPREHENSIVE METABOLIC 34606 BUN 21 MG/DL 2012 Unknown COMPREHENSIVE METABOLIC 42183 ALBUMIN 4.7 GM/DL 2012 Unknown COMPREHENSIVE METABOLIC 91431 CHLORIDE 106 MMOL/L 06/05 Unknown COMPREHENSIVE METABOLIC 02076 BILI TOT 0.6 MG/DL 2012 Unknown COMPREHENSIVE METABOLIC 87406 ALK PHOS 61 U/L 2012 Unknown COMPREHENSIVE METABOLIC 10207 SODIUM 139 MMOL/L 06/05 Unknown COMPREHENSIVE METABOLIC 78762 CREATININE 0.71 MG/DL 05/16 Unknown COMPREHENSIVE METABOLIC 75681 CALCIUM 9.8 MG/DL 2012 Unknown COMPREHENSIVE METABOLIC 92236 POTASSIUM 4.6 MMOL/L 06/05 Unknown COMPREHENSIVE METABOLIC 33947 PROT TOT 6.7 GM/DL 2012 Unknown COMPREHENSIVE METABOLIC 74041 Glucose 104 MG/DL 2012 Unknown COMPREHENSIVE METABOLIC 28379 BICARB 24 MMOL/L 2012 Unknown COMPREHENSIVE METABOLIC 89590 ANION GAP 9 MEQ/L 2012 Unknown GFR CALC 9819782 GFR AA >60 ML/MIN 06/05/2012 Unknown GFR CALC 9803311 GFR NON-AA >60 ML/MIN 06/05/2012 Unknown LIPID GROUP 02919 HDL TEST 46 MG/DL 06/05/2012 Unknown LIPID GROUP 13869 TRIG 77 MG/DL 06/05/2012 Unknown LIPID GROUP 39923 TEST LDL 135 MG/DL 06/05/2012 Unknown LIPID GROUP 26700 CHOL 196 MG/DL 06/05/2012 Unknown LIPID GROUP 11392 RCHOL/HDL 4.26 RATIO 06/05/2012 Unknow n COMPLETE BLOOD COUNT 0379057 WBC 5.9 10e9/L 06/05/19 13 Unknown COMPLETE BLOOD COUNT 8596577 RBC 5.02 10e12/L 2012 Unknown COMPLETE BLOOD COUNT 4515196 HGB 13.9 g/dL 3 Unknown COMPLETE BLOOD COUNT 7359102 HCT DET 41.5 % 3 Unknown COMPLETE BLOOD COUNT 1379204 MCV 82.7 fL 3 Unknown COMPLETE BLOOD COUNT 5466161 MCH 27.7 pg 3 Unknown COMPLETE BLOOD COUNT 7337303 MCHC 33.5 g/dL 3 Unknown COMPLETE BLOOD COUNT 1606648 PLT 323 10e9/L 06/05/19 13 Unknown COMPLETE BLOOD COUNT 9522984 MPV 11.3 fL 3 Unknown COMPLETE BLOOD COUNT 4974658 ROLAND % 70.6 % 3 Unknown COMPLETE BLOOD COUNT 9260575 LY % 21.4 % 3 Unknown COMPLETE BLOOD COUNT 8725152 MON % 6.4 % 3 Unknown COMPLETE BLOOD COUNT 2488543 EOS % 1.3 % 3 Unknown COMPLETE BLOOD COUNT 8404892 BASO % 0.3 % 3 Unknown COMPLETE BLOOD COUNT 9600520 RDW 14.9 % 3 Unknown COMPLETE BLOOD COUNT 7081690 ABS ROLAND 4.17 10e9/L 013 Unknown COMPLETE BLOOD COUNT 7494358 ABS LYMPH 1.26 10e9/L 013 Unknown COMPLETE BLOOD COUNT 8412579 ABS MONO 0.38 10e9/L 013 Unknown COMPLETE BLOOD COUNT 1794647 ABS EOS 0.08 10e9/L 013 Unknown COMPLETE BLOOD COUNT 4201453 ABS BASO 0.02 10e9/L 013 Unknown COMPLETE BLOOD COUNT 9542412 RDW-SD 44.8 fL 3 Unknown THYROID STIMULATING HORMONE 26929 TSH 1.684 uIU/ML 06/05/2012 Unknown FREE T4 59480 FREE T4 1.19 NG/DL 06/05/2012 Unknown BASIC METABOLIC PANEL 83844 Glucose 100 MG/DL 04/13/20 11 Unknown BASIC METABOLIC PANEL 10573 CREATININE 0.66 MG/DL 2010 Unknown BASIC METABOLIC PANEL 61249 BUN 18 MG/DL 04/13/20 11 Unknown BASIC METABOLIC PANEL 50248 SODIUM 138 MMOL/L 011 Unknown BASIC METABOLIC PANEL 56012 BICARB 26 MMOL/L 04/13/20 11 Unknown BASIC METABOLIC PANEL 41536 POTASSIUM 4.0 MMOL/L 011 Unknown BASIC METABOLIC PANEL 28831 ANION GAP 9 MEQ/L 04/13/20 11 Unknown BASIC METABOLIC PANEL 92981 CHLORIDE 103 MMOL/L 011 Unknown BASIC METABOLIC PANEL 27075 CALCIUM 9.6 MG/DL 04/13/20 11 Unknown FSH 4228125 FSH 4.6 MIU/ML 04/13/2011 Unknown GFR CALC 9867199 GFR AA >60 ML/MIN 04/13/2011 Unknown GFR CALC 0974773 GFR NON-AA >60 ML/MIN 04/13/2011 Unknown ESTRADIOL SERUM 54002 ESTRADIOL 113 PG/ML 04/13/2011 [place] [address] LH 3.7 MIU/ML 04/13/2011 Unknown THYROID STIMULATING HORMONE 36018 TSH 1.995 uIU/ML 04/13/2011 Unknown LIPID GROUP 37950 HDL TEST 40 MG/DL 12/21/2010 Unknown LIPID GROUP 67044 TRIG 66 MG/DL 12/21/2010 Unknown LIPID GROUP 73328 TEST LDL 132 MG/DL 12/21/2010 Unknown LIPID GROUP 75544 CHOL 185 MG/DL 12/21/2010 Unknown LIPID GROUP 05514 RCHOL/HDL 4.63 RATIO 12/21/2010 Unknow n THYROID STIMULATING HORMONE 18669 TSH 1.876 uIU/ML 12/21/2010 Unknown COMPLETE BLOOD COUNT 05305 WBC 7.0 10e9/L 12/22/19 11 Unknown COMPLETE BLOOD COUNT 05105 RBC 4.28 10e12/L 2010 Unknown COMPLETE BLOOD COUNT 42882 HGB 12.1 g/dL 1 Unknown COMPLETE BLOOD COUNT 86833 HCT DET 36.1 % 1 Unknown COMPLETE BLOOD COUNT 21336 MCV 84.3 fL 1 Unknown COMPLETE BLOOD COUNT 53532 MCH 28.3 pg 1 Unknown COMPLETE BLOOD COUNT 65682 MCHC 33.5 g/dL 1 Unknown COMPLETE BLOOD COUNT 05018 PLT 306 10e9/L 12/22/19 11 Unknown COMPLETE BLOOD COUNT 58443 MPV 10.4 fL 1 Unknown COMPLETE BLOOD COUNT 49093 ROLAND % 69.9 % 1 Unknown COMPLETE BLOOD COUNT 73534 LY % 22.2 % 1 Unknown COMPLETE BLOOD COUNT 12356 MON % 5.7 % 1 Unknown COMPLETE BLOOD COUNT 97735 EOS % 1.9 % 1 Unknown COMPLETE BLOOD COUNT 96165 BASO % 0.3 % 1 Unknown COMPLETE BLOOD COUNT 97997 RDW 14.0 % 1 Unknown COMPLETE BLOOD COUNT 76892 ABS ROLAND 4.89 10e9/L 011 Unknown COMPLETE BLOOD COUNT 94209 ABS LYMPH 1.55 10e9/L 011 Unknown COMPLETE BLOOD COUNT 72674 ABS MONO 0.40 10e9/L 011 Unknown COMPLETE BLOOD COUNT 07205 ABS EOS 0.13 10e9/L 011 Unknown COMPLETE BLOOD COUNT 59299 ABS BASO 0.02 10e9/L 011 Unknown COMPLETE BLOOD COUNT 25873 RDW-SD 41.5 fL 1 Unknown FREE T4 77238 FREE T4 1.02 NG/DL 12/21/2010 Unknown COMPREHENSIVE METABOLIC 76019 AST 11 U/L 2010 Unknown COMPREHENSIVE METABOLIC 80163 ALT 9 IU/L 2010 Unknown COMPREHENSIVE METABOLIC 75361 BUN 16 MG/DL 2010 Unknown COMPREHENSIVE METABOLIC 17804 ALBUMIN 4.0 GM/DL 2010 Unknown COMPREHENSIVE METABOLIC 47918 CHLORIDE 106 MMOL/L 12/21 Unknown COMPREHENSIVE METABOLIC 87372 BILI TOT 0.3 MG/DL 2010 Unknown COMPREHENSIVE METABOLIC 22549 ALK PHOS 59 U/L 2010 Unknown COMPREHENSIVE METABOLIC 90909 SODIUM 139 MMOL/L 12/21 Unknown COMPREHENSIVE METABOLIC 27030 CREATININE 0.66 MG/DL 01/2011 Unknown COMPREHENSIVE METABOLIC 90597 CALCIUM 8.9 MG/DL 2010 Unknown COMPREHENSIVE METABOLIC 58486 POTASSIUM 4.2 MMOL/L 12/21 Unknown COMPREHENSIVE METABOLIC 79464 PROT TOT 6.5 GM/DL 2010 Unknown COMPREHENSIVE METABOLIC 90601 Glucose 101 MG/DL 2010 Unknown COMPREHENSIVE METABOLIC 15627 BICARB 28 MMOL/L 2010 Unknown COMPREHENSIVE METABOLIC 65057 ANION GAP 5 MEQ/L 2010 Unknown GFR CALC 0794204 GFR AA >60 ML/MIN 12/21/2010 Unknown GFR CALC 5199134 GFR NON-AA >60 ML/MIN 12/21/2010 Unknown LIPID GROUP 17519 HDL TEST 40 MG/DL 12/10/2009 Unknown LIPID GROUP 79290 TRIG 98 MG/DL 12/10/2009 Unknown LIPID GROUP 42533 TEST LDL 128 MG/DL 12/10/2009 Unknown LIPID GROUP 72262 CHOL 188 MG/DL 12/10/2009 Unknown LIPID GROUP 60178 RCHOL/HDL 4.70 RATIO 12/10/2009 Unknow n DF [id number] POLY 74 % 12/09/2009 Unknown DF [id number] BAND 0 % 12/09/2009 Unknown DF 2018267 LYMP 21 % 12/09/2009 Unknown DF 6276535 MONO 3 % 12/09/2009 Unknown DF 3485279 EOS 2 % 12/09/2009 Unknown DF [id number] BASO 0 % 12/09/2009 Unknown GFR CALC 7970454 GFR AA >60 ML/MIN 12/09/2009 Unknown GFR CALC 4735722 GFR NON-AA >60 ML/MIN 12/09/[address] 5959583 WBC 8.7 10e9/L 12/09/[address] 6279417 RBC 4.78 10e12/L 12/09/[address] [place] 6126014 HGB 13.2 g/dL 12/09/[address] 7244958 HCT DET 40.2 % 12/09/[address] [id number] MCV 84.1 fL 12/09/[address] 6679789 MCH 27.6 pg 12/09/[address] 3881947 MCHC 32.8 g/dL 12/09/[address] 7335874 PLT 374 10e9/L 12/09/[address] 6308959 MPV 11.0 fL 12/09/[address] 9485228 ROLAND % 70.2 % 12/09/[address] 8615662 RDW 14.4 % 12/09/[address] 7042840 LY % 22.4 % 12/09/[address] [id number] RDW-SD 44.7 fL 12/09/[address] [id number] MON % 6.2 % 12/09/[address] 7548399 EOS % 1.0 % 12/09/[address] [id number] BASO % 0.2 % 12/09/[address] [id number] ABS ROLAND 6.08 10e9/L 12/09/[address] [id number] ABS LYMPH 1.94 10e9/L 12/09/[address] [id number] ABS MONO 0.54 10e9/L 12/09/[address] 2007543 ABS EOS 0.09 10e9/L 12/09/[address] [id number] ABS BASO 0.02 10e9/L 12/09/2009 Unknown THYROID STIMULATING HORMONE 09187 TSH 1.916 uIU/ML 12/09/2009 Unknown COMPREHENSIVE METABOLIC 48032 AST 13 U/L 2009 Unknown COMPREHENSIVE METABOLIC 03788 ALT 13 IU/L 2009 Unknown COMPREHENSIVE METABOLIC 57278 BUN 18 MG/DL 2009 Unknown COMPREHENSIVE METABOLIC 11505 ALBUMIN 4.3 GM/DL 2009 Unknown COMPREHENSIVE METABOLIC 35192 CHLORIDE 106 MMOL/L 12/09 Unknown COMPREHENSIVE METABOLIC 96370 BILI TOT 0.5 MG/DL 2009 Unknown COMPREHENSIVE METABOLIC 20871 ALK PHOS 69 U/L 2009 Unknown COMPREHENSIVE METABOLIC 57276 SODIUM 137 MMOL/L 12/09 Unknown COMPREHENSIVE METABOLIC 35539 CREATININE 0.69 MG/DL 11/13 Unknown COMPREHENSIVE METABOLIC 63054 CALCIUM 9.1 MG/DL 2009 Unknown COMPREHENSIVE METABOLIC 60660 POTASSIUM 4.5 MMOL/L 12/09 Unknown COMPREHENSIVE METABOLIC 31079 PROT TOT 6.9 GM/DL 2009 Unknown COMPREHENSIVE METABOLIC 51078 Glucose 97 MG/DL 2009 Unknown COMPREHENSIVE METABOLIC 35254 BICARB 20 MMOL/L 2009 Unknown COMPREHENSIVE METABOLIC 19679 ANION GAP 11 MEQ/L 2009 Unknown Procedures Procedure Codes Date ROUTINE VENIPUNCTURE CPT-4: 55742 06/29/2018 ASSAY OF FREE THYROXINE CPT-4: 70024 06/29/2018 ASSAY THYROID STIM HORMONE CPT-4: 90359 06/29/2018 COMPREHEN METABOLIC PANEL CPT-4: 42752 06/29/2018 COMPLETE CBC W/AUTO DIFF WBC CPT-4: 15416 06/29/2018 LIPID PANEL CPT-4: 72949 06/29/2018 TDAP VACCINE 7 YRS/> IM CPT-4: 51877 06/11/2018 IMMUNIZATION ADMIN CPT-4: 41327 06/11/2018 ROUTINE VENIPUNCTURE CPT-4: 02188 04/05/2017 ASSAY THYROID STIM HORMONE CPT-4: 37847 04/05/2017 COMPREHEN METABOLIC PANEL CPT-4: 81674 04/05/2017 COMPLETE CBC W/AUTO DIFF WBC CPT-4: 19030 04/05/2017 LIPID PANEL CPT-4: 91007 04/05/2017 ASSAY OF BLOOD/URIC ACID CPT-4: 16218 04/05/2017 THER/PROPH/DIAG INJ SC/IM CPT-4: 05490 02/12/2016 TRIAMCINOLONE ACET INJ NOS CPT-4: J3301 02/12/2016 DEXAMETHASONE SODIUM PHOS CPT-4: J1100 02/12/2016 PRESCRIP TRANSMIT VIA ERX SY CPT-4: G8553 10/01/2015 URINALYSIS NONAUTO W/O SCOPE CPT-4: 07534 10/01/2015 URINE CULTURE/ COLONY COUNT CPT-4: 13463 10/01/2015 OCCULT BLOOD FECES CPT-4: 04102 08/04/2015 SPECIMEN HANDLING OFFICE-LAB CPT-4: 08028 08/04/2015 URINALYSIS NONAUTO W/O SCOPE CPT-4: 65760 05/27/2015 URINE CULTURE/ COLONY COUNT CPT-4: 02112 05/27/2015 THER/PROPH/DIAG INJ SC/IM CPT-4: 22055 03/10/2015 KETOROLAC TROMETHAMINE INJ CPT-4: J1885 03/10/2015 ROUTINE VENIPUNCTURE CPT-4: 02357 07/29/2014 ASSAY OF FREE THYROXINE CPT-4: 27285 07/29/2014 ASSAY THYROID STIM HORMONE CPT-4: 67298 07/29/2014 COMPREHEN METABOLIC PANEL CPT-4: 97831 07/29/2014 COMPLETE CBC W/AUTO DIFF WBC CPT-4: 81825 07/29/2014 LIPID PANEL CPT-4: 06131 07/29/2014 ASSAY OF IRON CPT-4: 41981 07/29/2014 ASSAY OF FERRITIN CPT-4: 35535 07/29/2014 VITAMIN B 12 FOLIC ACID CPT-4: 61616|18383 07/29/2014 URINALYSIS NONAUTO W/O SCOPE CPT-4: 99951 05/31/2013 URINE CULTURE/ COLONY COUNT CPT-4: 32479 05/31/2013 INFLUENZA ASSAY W/OPTIC CPT-4: 89558 05/27/2013 THER/PROPH/DIAG INJ SC/IM CPT-4: 19258 05/27/2013 METHYLPREDNISOLONE 40 MG INJ CPT-4: J1030 05/27/2013 TRIAMCINOLONE ACET INJ NOS CPT-4: J3301 05/27/2013 ROUTINE VENIPUNCTURE CPT-4: 56268 02/26/2013 ASSAY OF FREE THYROXINE CPT-4: 69582 02/26/2013 ASSAY THYROID STIM HORMONE CPT-4: 85325 02/26/2013 COMPREHEN METABOLIC PANEL CPT-4: 98678 02/26/2013 COMPLETE CBC W/AUTO DIFF WBC CPT-4: 67406 02/26/2013 LIPID PANEL CPT-4: 19961 02/26/2013 ROUTINE VENIPUNCTURE CPT-4: 13493 11/12/2012 COMPLETE CBC W/AUTO DIFF WBC CPT-4: 43338 11/12/2012 MYCOPLASMA ANTIBODY, IFA CPT-4: 60676D4 11/12/2012 ROUTINE VENIPUNCTURE CPT-4: 98599 06/05/2012 ASSAY OF FREE THYROXINE CPT-4: 73578 06/05/2012 ASSAY THYROID STIM HORMONE CPT-4: 62575 06/05/2012 COMPREHEN METABOLIC PANEL CPT-4: 74503 06/05/2012 COMPLETE CBC W/AUTO DIFF WBC CPT-4: 97898 06/05/2012 LIPID PANEL CPT-4: 56372 06/05/2012 ANTINUCLEAR ANTIBODIES CPT-4: 08910 06/05/2012 RHEUMATOID FACTOR QUANT CPT-4: 45933 06/05/2012 ASSAY OF INSULIN CPT-4: 71182 06/05/2012 A1C GLYCOSYLATED HEMOGLOBIN TEST CPT-4: 24475 013 SPECIMEN HANDLING OFFICE-LAB CPT-4: 66693 12/21/2011 ROUTINE VENIPUNCTURE CPT-4: 35259 04/13/2011 ASSAY THYROID STIM HORMONE CPT-4: 99894 04/13/2011 METABOLIC PANEL TOTAL CA CPT-4: 51794 04/13/2011 FSH CPT-4: 5254888 04/13/2011 LH CPT-4: 68979 04/13/2011 ASSAY OF ESTRADIOL CPT-4: 92942 04/13/2011 URINALYSIS NONAUTO W/O SCOPE CPT-4: 58993 02/04/2011 URINE CULTURE/ COLONY COUNT CPT-4: 83595 02/04/2011 ROUTINE VENIPUNCTURE CPT-4: 78612 12/21/2010 ASSAY OF FREE THYROXINE CPT-4: 11943 12/21/2010 ASSAY THYROID STIM HORMONE CPT-4: 69976 12/21/2010 COMPLETE CBC W/AUTO DIFF WBC CPT-4: 63179 12/21/2010 COMPREHEN METABOLIC PANEL CPT-4: 11130 12/21/2010 LIPID PANEL CPT-4: 59756 12/21/2010 OCCULT BLOOD FECES CPT-4: 15716 12/06/2010 ROUTINE VENIPUNCTURE CPT-4: 44371 12/09/2009 CBC WITH MANUAL DIFFERENTIAL CPT-4: 89288|59344 12/09/2009 COMPREHEN METABOLIC PANEL CPT-4: 99288 12/09/2009 LIPID PANEL CPT-4: 30216 12/09/2009 ASSAY THYROID STIM HORMONE CPT-4: 53842 12/09/2009 SPECIMEN HANDLING OFFICE-LAB CPT-4: 41986 12/08/2009 THER/PROPH/DIAG INJ SC/IM CPT-4: 82674 09/01/2009 KETOROLAC TROMETHAMINE INJ CPT-4: J1885 09/01/2009 URINALYSIS NONAUTO W/O SCOPE CPT-4: 81780 08/26/2009 Vital Signs Date Vital 01/15/2019 Blood Pressure 1: 132/80 Code: 8480-6 Heart Rate 1: 64 bpm SpO2: 98% Temperature: 36.1 (C) / 97.0 (F) Weight: 198 lbs 07/20/2018 Blood Pressure 1: 118/80 Code: 8480-6 Heart Rate 1: 68 bpm Respiratory Rate: 20 bpm SpO2: 97% Temperature: 36.6 (C) / 97.9 (F) We ight: 191 lbs 8 oz 06/29/2018 Height: 5'2" 06/11/2018 Blood Pressure 1: 106/68 Code: 8480-6 BMI: 36.2 Code: 29792-1 Heart Rate 1: 72 bpm Height: 5'2" Respiratory Rate: 20 bpm SpO2: 97% Tempera ture: 37.1 (C) / 98.8 (F) Weight: 198 lbs 04/05/2017 Blood Pressure 1: 114/78 Code: 8480-6 BMI: 35.5 Code: 79959-4 Heart Rate 1: 68 bpm Height: 5'2" Respiratory Rate: 20 bpm SpO2: 96% Tempera ture: 36.9 (C) / 98.5 (F) Weight: 194 lbs 02/12/2016 Blood Pressure 1: 126/78 Code: 8480-6 BMI: 31.8 Code: 38122-9 Heart Rate 1: 60 bpm Height: 5'2" Respiratory Rate: 24 bpm SpO2: 96% Tempera ture: 36.2 (C) / 97.1 (F) Weight: 174 lbs 01/25/2016 Blood Pressure 1: 128/78 Code: 8480-6 BMI: 31.6 Code: 98749-5 Heart Rate 1: 76 bpm Height: 5'2" Respiratory Rate: 20 bpm SpO2: 98% Tempera ture: 36.5 (C) / 97.7 (F) Weight: 173 lbs 10/01/2015 Blood Pressure 1: 108/58 Code: 8480-6 BMI: 32.9 Code: 92458-6 Heart Rate 1: 62 bpm Height: 5'2" Respiratory Rate: 20 bpm SpO2: 98% Tempera ture: 36.2 (C) / 97.1 (F) Weight: 180 lbs 08/04/2015 Blood Pressure 1: 126/78 Code: 8480-6 BMI: 33.8 Code: 73439-9 Heart Rate 1: 72 bpm Height: 5'2" Respiratory Rate: 20 bpm Temperature: 36 .9 (C) / 98.5 (F) Weight: 185 lbs 05/27/2015 Blood Pressure 1: 132/80 Code: 8480-6 BMI: 36.2 Code: 80933-3 Heart Rate 1: 56 bpm Height: 5'2" Respiratory Rate: 20 bpm Temperature: 37 .0 (C) / 98.6 (F) Weight: 198 lbs 03/10/2015 Blood Pressure 1: 136/82 Code: 8480-6 BMI: 36.2 Code: 55342-2 Heart Rate 1: 88 bpm Height: 5'2" Respiratory Rate: 20 bpm Temperature: 37 .0 (C) / 98.6 (F) Weight: 198 lbs 06/30/2014 Blood Pressure 1: 124/78 Code: 8480-6 BMI: 35.8 Code: 62011-7 Heart Rate 1: 84 bpm Height: 5'2" Respiratory Rate: 20 bpm Temperature: 36 .8 (C) / 98.2 (F) Weight: 196 lbs 08/12/2013 Blood Pressure 1: 114/72 Code: 8480-6 BMI: 35.8 Code: 33562-1 Heart Rate 1: 80 bpm Height: 5'2" Respiratory Rate: 20 bpm Temperature: 36 .9 (C) / 98.4 (F) Weight: 196 lbs 05/31/2013 Blood Pressure 1: 118/78 Code: 8480-6 Heart Rate 1: 84 bpm Respiratory Rate: 20 bpm Temperature: 36.5 (C) / 97.7 (F) 05/27/2013 Blood Pressure 1: 124/84 Code: 8480-6 Heart Rate 1: 82 bpm Respiratory Rate: 22 bpm Temperature: 36.7 (C) / 98.0 (F) Weight: 197 lbs 02/26/2013 Blood Pressure 1: 132/86 Code: 8480-6 BMI: 34.9 Code: 24742-7 Heart Rate 1: 72 bpm Height: 5'2" Respiratory Rate: 20 bpm Temperature: 36 .9 (C) / 98.4 (F) Weight: 191 lbs 11/29/2012 Blood Pressure 1: 126/82 Code: 8480-6 BMI: 34.4 Code: 80668-1 Heart Rate 1: 84 bpm Height: 5'2" Respiratory Rate: 20 bpm Temperature: 36 .7 (C) / 98.0 (F) Weight: 188 lbs 11/12/2012 Blood Pressure 1: 110/62 Code: 8480-6 BMI: 34.8 Code: 52195-5 Heart Rate 1: 64 bpm Height: 5'2" Temperature: 36.7 (C) / 98.1 (F) Weight: 190 lbs 07/30/2012 Blood Pressure 1: 124/82 Code: 8480-6 BMI: 36.0 Code: 54499-5 Heart Rate 1: 84 bpm Height: 5'2" Respiratory Rate: 20 bpm Temperature: 36 .5 (C) / 97.7 (F) Weight: 197 lbs 06/04/2012 Blood Pressure 1: 118/70 Code: 8480-6 BMI: 36.2 Code: 24931-4 Heart Rate 1: 64 bpm Height: 5'2" Temperature: 37.1 (C) / 98.7 (F) Weight: 198 lbs 12/21/2011 Blood Pressure 1: 132/80 Code: 8480-6 BMI: 33.3 Code: 74047-4 Heart Rate 1: 64 bpm Height: 5'2" Respiratory Rate: 20 bpm Temperature: 36 .6 (C) / 97.8 (F) Weight: 182 lbs 10/07/2011 Blood Pressure 1: 128/72 Code: 8480-6 BMI: 34.4 Code: 93377-1 Heart Rate 1: 80 bpm Height: 5'2" Respiratory Rate: 20 bpm Temperature: 36 .8 (C) / 98.2 (F) Weight: 188 lbs 09/05/2011 Blood Pressure 1: 106/72 Code: 8480-6 BMI: 33.3 Code: 06599-1 Heart Rate 1: 76 bpm Height: 5'2" Respiratory Rate: 20 bpm Temperature: 36 .6 (C) / 97.9 (F) Weight: 182 lbs 04/28/2011 Blood Pressure 1: 110/70 Code: 8480-6 BMI: 34.4 Code: 77096-7 Heart Rate 1: 60 bpm Height: 5'2" Temperature: 37.0 (C) / 98.6 (F) Weight: 188 lbs 04/13/2011 Blood Pressure 1: 106/84 Code: 8480-6 BMI: 34.4 Code: 07286-5 Heart Rate 1: 80 bpm Height: 5'2" Respiratory Rate: 20 bpm Temperature: 36 .6 (C) / 97.8 (F) Weight: 188 lbs 02/04/2011 Blood Pressure 1: 108/76 Code: 8480-6 BMI: 33.7 Code: 31202-7 Heart Rate 1: 74 bpm Height: 5'2" Weight: 184 lbs 12/06/2010 Blood Pressure 1: 120/72 Code: 8480-6 BMI: 33.3 Code: 12416-5 Heart Rate 1: 76 bpm Height: 5'2" Temperature: 36.8 (C) / 98.2 (F) Weight: 182 lbs 04/14/2010 Blood Pressure 1: 126/80 Code: 8480-6 Heart Rate 1: 88 bpm Temperature: 36.2 (C) / 97.2 (F) Weight: 173 lbs 02/16/2010 Blood Pressure 1: 106/80 Code: 8480-6 Heart Rate 1: 88 bpm Temperature: 36.3 (C) / 97.4 (F) Weight: 176 lbs 02/03/2010 Blood Pressure 1: 112/64 Code: 8480-6 Heart Rate 1: 76 bpm Temperature: 37.1 (C) / 98.7 (F) 01/27/2010 Blood Pressure 1: 92/60 Code: 8480-6 Heart Rate 1: 72 bpm Temperature: 37.3 (C) / 99.1 (F) 01/25/2010 Blood Pressure 1: 128/84 Code: 8480-6 Heart Rate 1: 84 bpm Temperature: 36.2 (C) / 97.1 (F) Weight: 178 lbs 12/08/2009 Blood Pressure 1: 118/66 Code: 8480-6 BMI: 32.6 Code: 82035-6 Heart Rate 1: 68 bpm Height: 5'2" Temperature: 36.7 (C) / 98.1 (F) Weight: 178 lbs 09/01/2009 Blood Pressure 1: 118/76 Code: 8480-6 BMI: 34.6 Code: 06698-4 Heart Rate 1: 76 bpm Height: 5'2" Temperature: 36.5 (C) / 97.7 (F) Weight: 189 lbs Functional Status No Functional Status data Reason For Visit Reason For Visit Effective Dates Notes follow up 01/15/2019 sore throat 07/20/2018 lab draw 06/29/2018 well woman exam (40-65 years) 06/11/2018 Annual Wel lness Annual Checkup 04/05/2017 Wellness Physical, l ast normal mammogram 16, last colonoscopy was about 5 years ago and has history of polyps cough 02/12/2016 cough 01/25/2016 pelvic pain 10/01/2015 Annual Checkup 08/04/2015 Wellness Physical, l ast normal mammogram 08-07-14 menstrual irregularity 05/27/2015 seizure 03/10/2015 lab draw 07/29/2014 Annual Checkup 06/30/2014 Wellness Physical rash 08/12/2013 pelvic pain 05/31/2013 sore throat 05/27/2013 rash 02/26/2013 rash 11/29/2012 cough 11/12/2012 sore throat 07/30/2012 lab draw 06/05/2012 rash 06/04/2012 well woman exam (40-65 years) 12/21/2011 last best l mammogram 2 years ago hemorrhoids 10/07/2011 very uncomfortable, started about 2 weeks ago headache 09/05/2011 recently changed to atenolol from amitriptyline but hasn't really helped headaches sinus congestion 04/28/2011 ~generic 04/13/2011 thinks may have brok en nose, had storage totes fall on face 4 days ago painful urination 02/04/2011 couple dribbles at a time well woman exam (40-65 years) 12/06/2010 follow up 04/14/2010 2mo fwup follow up 02/16/2010 3wk fwup, been back to work since 02/06/10 sinusitis 02/03/2010 follow up 01/27/2010 from [facility] w ith UTI/migraine and given medications but hasn't filled anything yet headache 01/25/2010 shaking lab draw 12/09/2009 well woman exam (40-65 years) 12/08/2009 back pain 09/01/2009 low back pain Encounters Encounter Performer Location Codes Date ([id number]) OFFICE/OUTPATIENT VISIT EST Diagnosis: Essential (primary) hypertension[ICD10: I10] Diagnosis: Encounter for therapeutic drug level monitoring[ICD10: Z51.81] Silvia Rivas [employer] CPT-4: 27704 01/15/2019 ([id number]) OFFICE/OUTPATIENT VISIT EST Diagnosis: Acute bronchitis, unspecified[ICD10: J20.9] Diagnosis: Acute recurrent maxillary sinusitis[ICD10: J01.01] Nicol Rivas [employer] CPT-4: 98982 07/20/2018 ([id number]) NURSE/OUTPATIENT VISIT EST Diagnosis: Encounter for general adult medical examination without abnormal findings[ICD10: Z00.00] Diagnosis: Mixed hyperlipidemia[ICD10: E78.2] Caren Jeffkeyon YOUNG [employer] CPT-4: 90152 06/29/2018 ([id number]) PREV VISIT EST AGE 40-64 Diagnosis: Encounter for general adult medical examination without abnormal findings[ICD10: Z00.00] Diagnosis: Encounter for screening mammogram for malignant neoplasm of breast[ICD10: Z12.31] Diagnosis: Essential (primary) hypertension[ICD10: I10] Diagnosis: Migraine with aura, not intractable, without status migrainosus[ICD10: G43.109] Diagnosis: VACCINE FOR TDAP[ICD10: Z23] Caren CHAUDHARY [employer] CPT-4: 72358 06/11/2018 ([id number]) PREV VISIT EST AGE 40-64 Diagnosis: Encounter for general adult medical examination without abnormal findings[ICD10: Z00.00] Diagnosis: Encounter for gynecological examination (general) (routine) without abnormal findings[ICD10: Z01.419] Diagnosis: Encounter for screening mammogram for malignant neoplasm of breast[ICD10: Z12.31] Diagnosis: Essential (primary) hypertension[ICD10: I10] Diagnosis: Mixed hyperlipidemia[ICD10: E78.2] Diagnosis: Persistent migraine 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 CPT-4: 51780 02/12/2016 ([id number]) OFFICE/OUTPATIENT VISIT EST Diagnosis: Acute upper respiratory infection, unspecified[ICD10: J06.9] Diagnosis: Acute maxillary sinusitis, unspecified[ICD10: J01.00] Chiara ANDERS [employer] [facility] CPT-4: 38789 01/25/2016 ([id number]) OFFICE/OUTPATIENT VISIT EST Diagnosis: Urinary tract infection, site not specified[ICD10: N39.0] Chiara ANDERS [employer] [facility] CPT-4: 24901 10/01/2015 ([id number]) PREV VISIT EST AGE 40-64 Diagnosis: Encounter for gynecological examination (general) (routine) without abnormal findings[ICD10: Z01.419] Diagnosis: Encounter for general adult medical examination without abnormal findings[ICD10: Z00.00] Diagnosis: Migraine, unspecified, not intractable, without status migrainosus[ICD10: G43.909] Diagnosis: Essential (primary) hypertension[ICD10: I10] Caren GARBERLINE Evelyn ANDERS [employer] [facility] CPT-4: 98392 08/04/2015 ([id number]) OFFICE/OUTPATIENT VISIT EST Diagnosis: Menopausal and female climacteric states[ICD10: N95.1] Diagnosis: Dysuria[ICD10: R30.0] Caren Chago ACEVESQUELINE Evelyn ANDERS [employer] [facility] CPT-4: 76584 05/27/2015 OFFICE/OUTPATIENT VISIT EST Diagnosis: Persistent migraine 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 cerebral infarction, intractable, with status migrainosus[ICD10: G43.511] Diagnosis: Unspecified convulsions[ICD10: R56.9] Caren Robertelviskeyon LEE ROJAS Evelyn ANDERS [employer] [facility] CPT-4: 89981 03/10/2015 ([id number]) OFFICE/OUTPATIENT VISIT EST Diagnosis: HYPERLIPIDEMIA NEC/NOS[ICD9: 272.4] Diagnosis: HYPERTENSION[ICD9: 401.9] Diagnosis: MALAISE AND FATIGUE[ICD9: 780.79] Diagnosis: ANEMIA NOS[ICD9: 285.9] Caren COBIAN [facility] CPT-4: 44092 07/29/2014 ([id number]) PREV VISIT EST AGE 40-64 Diagnosis: ROUTINE MEDICAL EXAM[ICD9: V70.0] Diagnosis: HYPERTENSION[ICD9: 401.9] Diagnosis: MIGRAINE NOS/NOT INTRCBL[ICD9: 346.90] Diagnosis: GERD[ICD9: 530.81] [facility]: 78339 06/30/2014 ([id number]) OFFICE/OUTPATIENT VISIT EST Diagnosis: ALLERGIC RHINITIS[ICD9: 477.9] Diagnosis: DERMATITIS NOS[ICD9: 692.9] Caren Clay [employer] CPT-4: 80670 08/12/2013 OFFICE/OUTPATIENT VISIT EST Diagnosis: HEMATURIA NOS[ICD9: 599.70] Diagnosis: COUGH[ICD9: 786.2] Diagnosis: BRONCHITIS, ACUTE[ICD9: 466.0] Diagnosis: URINARY TRACT INFECTION[ICD9: 599.0] [facility]PT[facility]: 93643 05/31/2013 OFFICE/OUTPATIENT VISIT EST Diagnosis: COUGH[ICD9: 786.2] Diagnosis: SINUSITIS, ACUTE[ICD9: 461.9] Diagnosis: FEBRILE ILLNESS[ICD9: 780.60] [facility]: 67262 05/27/2013 ([id number]) OFFICE/OUTPATIENT VISIT EST Diagnosis: DERMATITIS NOS[ICD9: 692.9] Diagnosis: Tinea cruris[ICD9: 110.3] Caren PERSON [facility] CPT-4: 78931 02/26/2013 OFFICE/OUTPATIENT VISIT EST Diagnosis: Rash[ICD9: 782.1] Anni Brennan CAREN [facility] T-[facility]: 82749 11/29/2012 OFFICE/OUTPATIENT VISIT EST Diagnosis: COUGH[ICD9: 786.2] Diagnosis: SINUSITIS, ACUTE[ICD9: 461.9] Diagnosis: PHARYNGITIS, ACUTE[ICD9: 462] [facility] CPT-[facility]: 04949 11/12/2012 OFFICE/OUTPATIENT VISIT EST Diagnosis: COUGH[ICD9: 786.2] Diagnosis: SINUSITIS, ACUTE[ICD9: 461.9] Diagnosis: Myalgia[ICD9: 729.1] [facility] CPT[facility]: 88707 07/30/2012 ([id number]) OFFICE/OUTPATIENT VISIT EST Diagnosis: JOINT PAIN-UNSPEC[ICD9: 719.40] Diagnosis: Rash and nonspecific skin eruption[ICD9: 782.1] [facility] CPT-[facility]: 65328 06/05/2012 OFFICE/OUTPATIENT VISIT EST Diagnosis: Rash[ICD9: 782.1] Diagnosis: Joint pain[ICD9: 719.40] Caren BRENNAN [facility] CPT-4: 88581 06/04/2012 ([id number]) PREV VISIT EST AGE 40-64 Diagnosis: ROUTINE GYNE EXAM[ICD9: V72.31] Diagnosis: ROUTINE MEDICAL EXAM[ICD9: V70.0] Diagnosis: MIGRAINE NOS/NOT INTRCBL[ICD9: 346.90] [facility] CPT-[facility]: 60986 12/21/2011 OFFICE/OUTPATIENT VISIT EST Diagnosis: Hemorrhoid[ICD9: 455.6] Diagnosis: Constipation[ICD9: 564.00] Diagnosis: Rash[ICD9: 782.1] [facility] CPT-[facility]: 22232 10/07/2011 OFFICE/OUTPATIENT VISIT EST Diagnosis: HYPERTENSION[ICD9: 401.9] Diagnosis: MIGRAINE NOS/NOT INTRCBL[ICD9: 346.90] Diagnosis: DIZZINESS/VERTIGO[ICD9: 780.4] Diagnosis: EUSTACHIAN TUBE DYSFUNCTION[ICD9: 381.81] Diagnosis: Plantar warts[ICD9: 078.12] Caren ACEVESKAROLINA Rivas Obed [employer] CPT-4: 59870 09/05/2011 OFFICE/OUTPATIENT VISIT EST Diagnosis: SINUSITIS, ACUTE[ICD9: 461.9] Diagnosis: COUGH[ICD9: 786.2] Diagnosis: PHARYNGITIS, ACUTE[ICD9: 462] Diagnosis: DIARRHEA[ICD9: 787.91] Caren HARDIN R DO [facility] CPT-4: 27859 04/28/2011 OFFICE/OUTPATIENT VISIT EST Diagnosis: Finger pain[ICD9: 729.5] Diagnosis: Nasal pain[ICD9: 478.19] Diagnosis: MIGRAINE NOS/NOT INTRCBL[ICD9: 346.90] Diagnosis: Metrorrhagia[ICD9: 626.6] Caren CEE DO [facility] CPT-4: 27173 04/13/2011 OFFICE/OUTPATIENT VISIT EST Diagnosis: Frequent urination[ICD9: 788.41] Caren Rivas ROBERTJAYE DO [facility] CPT-4: 48933 02/04/2011 PREV VISIT EST AGE 40-64 [address] [facility] CPT-4: 21722 12/06/2010 SPECIMEN HANDLING Anni CHAUDHARY SRajni PERSONNDKEYON DO [facility] CPT-4: 19669 12/06/2010 ([id number]) OFFICE/OUTPATIENT VISIT, EST Caren TURCIOS SRajni ORENDER DO [facility] CPT-4: 84818 04/14/2010 ([id number]) OFFICE/OUTPATIENT VISIT, EST Caren TURCIOS SRajni ORENDER DO [facility] CPT-4: 73366 02/16/2010 ([id number]) OFFICE/OUTPATIENT VISIT, EST Caren TURCIOS SRajni ORENDER DO [facility] CPT-4: 96076 02/03/2010 ([id number]) OFFICE/OUTPATIENT VISIT, EST Caren TURCIOS SRajni ORENDER DO [facility] CPT-4: 35823 01/27/2010 ([id number]) OFFICE/OUTPATIENT VISIT, EST Caren TURCIOS SRajni ORENDER DO [facility] CPT-4: 75350 01/25/2010 ([id number]) PREV VISIT, EST, AGE 40-64 Anni PERSONJAYE [facility] CPT-4: 84443 12/08/2009 ([id number]) OFFICE/OUTPATIENT VISIT, EST Caren ANDERS DO [facility] CPT-4: 14983 09/01/2009 Plan of Care Planned Activity Notes Codes Status Date Visit Diagnosis Plan: Essential (primary) hypertension Discussion: stable on current medications. rtc 6 months for annual or sooner if needed. will recheck labs at annual. ICD-9 : 401.9 ICD-10 : I10 01/15/2019 Appointment: [facility]rez [facility] FO[facility] UP 01/15/2019 Patient Education: High Blood Pressure Co mpleted 01/15/2019 Visit Diagnosis Plan: Acute bronchitis, unspecified Di scussion: Prednisone and zpack- take as directed. Moist air- humidifier. Avoid hot, dry air. Fluids and rest encouraged. Albuterol inhaler as needed for shortness of breath. FU with worsening symptoms or no improvement following treatment regimen. Patient states understanding of all instruction. ICD-9 : 466.0 ICD-10 : J20.9 07/20/2018 [facility]ment[facility] [facility] 07/20/2018 Patient Education: prednisone- [employer] [id number] Completed 07/20/2018 Patient Education: [facility] - Saving AutoInj - Ventolin HFA - 18-64 - Dynamic Portal ID Completed 07/20/2018 Patient Education: azithromycin- [employer] [id number] Completed 07/20/2018 Appointment: Caren Anders WPtel[facility] [phone] [facility] [facility] 06/29/2018 Visit Diagnosis Plan: Encounter for scre ening mammogram for malignant neoplasm of breast Discussion: Mammogram ordered ICD-9 : V76.12 ICD-10 : Z12.31 06/11/2018 Visit Diagnosis Plan: Migraine with aura , not intractable, without status migrainosus Discussion: Stable after PT and doing da beth stretches ICD-9 : 346.20 ICD-10 : G43.109 06/11/2018 Visit Diagnosis Plan: Encounter for gene ral adult medical examination without abnormal findings Discussion: Will return in 2 weeks for f asting lab Tdap given Will check on Shingrix Mediterranean diet with combo cardio/weight bearing exercise ICD-9 : V70.9 ICD-10 : Z00.00 06/11/2018 Appointment: Caren Anders WPtel: [phone] [place] [phone] Annual Well Visit 06/11/2018 Patient Education: Valtrex- [employer] [id number] Completed 06/11/2018 Patient Education: mupirocin calcium- [employer] [id number] Completed 06/11/2018 Visit Diagnosis Plan: Encounter for gyne cological examination (general) (routine) without abnormal findings Discussion: Pap done Mammogram ordered ICD-9 : V72.31 ICD-10 : Z01.419 04/05/2017 Visit Diagnosis Plan: Persistent migrain e 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 cerebral infarction, intractable, with status migrainosus Discussion: Stable Follow Up: 6 months ICD-9 : 346.53 ICD-10 : G43.511 04/05/2017 Visit Diagnosis Plan: Essential (primary) hypertension Discussion: Stable ICD-9 : 401.9 ICD-10 : I10 04/05/2017 Visit Diagnosis Plan: Encounter for gene ral adult medical examination without abnormal findings Discussion: Fating lab drawn Update colo noscopy ICD-9 : V70.9 ICD-10 : Z00.00 04/05/2017 Appointment: Caren Anders WPtel: [facility] [place] [phone] Annual Well Visit 04/05/2017 Patient Education: Patient Medication Summary Completed 04/05/2017 Care Plan: Referral Order SNOMED-CT : 30 [id number] Pending 04/05/2017 Patient Education: Patient Medication Summary Completed 08/02/2016 Care Plan: MAMMOGRAM SCREENING LOINC : 2 6347-5 Pending 08/02/2016 Visit Plan: Injection as above Rx for le vaquin - pt reports she tolerates well Continue supportive care Follow up PRN 02/12/2016 Appointment: Chiara Phelan [address] 02/10 confirmed~sl ACUTE ILLNESS 02/12/2016 Patient Education: Patient Medication Summary Completed 02/12/2016 Visit Plan: Rxs as above OTC meds review ed - avoid decongestants Rest, fluids, vicks, humidifier, etc Follow up PRN 01/25/2016 Appointment: Chiara Phelan [address] ACUTE ILLNESS 01/25/2016 Patient Education: Patient Medication Summary Completed 01/25/2016 Visit Plan: Office dip abnormal Culture pending Rx as above Supportive care reviewed Follow up PRN 10/01/2015 Appointment: Chiara Phelan [address] ACUTE ILLNESS 10/01/2015 Patient Education: Patient Medication Summary Completed 10/01/2015 Visit Plan: Obtain lab results Pap done Mammogram ordered Patient awaiting on Dr. Cuello to restart botox for migraines 08/04/2015 Appointment: Caren Anders WPtel: [address] [place] [address] 08/02confirmed-sp Annual Well Visit 08/04/2015 Patient Education: Patient Medication Summary Completed 08/04/2015 Care Plan: MAMMOGRAM SCREENING LOINC : 2 6347-5 Ordered 08/04/2015 Patient Education: Patient Medication Summary Completed 07/29/2015 Care Plan: CBC Ordered 07/29/2015 Visit Plan: Discussed likely perimenopau se Will observe through July and then at [facility] with fasting lab including hormone levels If bleeding returns will proceed with pelvic US Check into chiropractor for manipulation for right low back/hip pain 05/27/2015 Appointment: Caren Anders WPtel: [address] [place], [place] [phone] 05/26/15 vm cn 05/26/15 appt confirmed cn ACUTE ILLNESS 05/27/2015 Patient Education: Patient Medication Summary Completed 05/27/2015 Referral: Ignacio Esposito WPtel: [facility] [address] [id number] [place] Referral Initiated 04/07/2015 Referral: Caren Anders WPtel: [address] [place], [place] [phone] 03/26/15 Arrival time 9:30 am Procedure 9:45 am. @ [facility] [address] Come sleep deprived(4 hours or less) clean hair, no product in hair, no caffeen Initiated 03/26/2015 Visit Plan: Toradol now with compazine p o when gets home Proceed with updated EEG/neurology evaluation--discussed may need to go on antiseizure meds and drop out of migraine study No driving for 6mos [facility] [place]he wants to see her in next 1-2weeks 03/10/2015 Appointment: Caren Anders WPtel: [address] [place] [address] ACUTE ILLNESS 03/10/2015 Patient Education: Patient Medication Summary Completed 03/10/2015 Appointment: Caren Anders WPtel: [address] [place] [address] 07/29/2014 Patient Education: Patient Medication Summary Completed 07/29/2014 Appointment: Caren Anders WPtel: [address] [place] [address] Annual Well Visit 06/30/2014 Patient Education: Patient Medication Summary Completed 06/30/2014 Appointment: Caren Anders WPtel: [address] [place] [address] Annual Well Visit 06/18/2014 Appointment: Caren Anders WPtel: [address] [place] [address] ACUTE ILLNESS 06/03/2014 Appointment: Lyndsey Thorpe WPtel: [address] [place] [address] 02/05 ACUTE ILLNESS 02/06/2014 Visit Plan: Benadryl 25mg q HS Claritin 10mg q AM Prednisone for 1week Call in 1week on cough and rash 08/12/2013 Appointment: Caren Anders WPtel: [address] [place], [place] [phone] 08/09 FOLLOW UP 08/12/2013 Patient Education: Patient Medication Summary Completed 08/12/2013 Appointment: Lyndsey Thorpe WPtel: [address] [place] [place] [phone] 05/31/2013 Patient Education: Patient Medication Summary Completed 05/31/2013 Appointment: Lyndsey Thorpe WPtel: [address] [place] [place] [phone] 05/27/2013 Patient Education: Patient Medication Summary Completed 05/27/2013 Appointment: Caren Anders WPtel: [address] [place] [address] 02/25 ACUTE ILLNESS 02/26/2013 Patient Education: Patient Medication Summary Completed 02/26/2013 Visit Plan: Reports that rash has been p resent in one form or another since the beginning of the year. Reports that betamethasone has been helpful in October. Possible dermatology consult if no improvment. Diflucan. Nystatin powder and will use betamethasone also. (Recently finished a round of antibiotics for Mycoplasma infection) 11/29/2012 Appointment: Anni Brennan WPtel: [address] [place] [address] FOLLOW UP 11/29/2012 Patient Education: Patient Medication Summary Completed 11/29/2012 Appointment: Anni Brennan WPtel: [address] [place] [address] ACUTE ILLNESS 11/12/2012 Patient Education: Patient Medication Summary Completed 11/12/2012 Visit Plan: Azithromyacin and medrol dos e pack. Will focus on hydration and rest. Pt. will notify if symptoms worsen or do not improve. 07/30/2012 Appointment: Anni Brennan WPtel: [address] [place], [place] [phone] 07/30/2012 Patient Education: Patient Medication Summary Completed 07/30/2012 Appointment: Caren Anders WPtel: [address] [place], [place] [id number] US LAB 06/05/2012 Patient Education: Patient Medication Summary Completed 06/05/2012 Visit Plan: fsating lab: CBC, CMP, TSH, Free T4 and Lipid with FERDINAND and RA. Nystatin to rash. Written RX for Medrol dose pack. Discussed that pt. will notify if no improvement with topical Nystatin. Pt. will use Benadryl at bedtime and cool pack to help refrain from scratching. 06/04/2012 Appointment: Anni Brennan WPtel: [address] [place], [place] [phone] ACUTE ILLNESS 06/04/2012 Patient Education: Patient Medication Summary Completed 06/04/2012 Visit Plan: Pap done Mammo ordered Pt wong s started botox for Migraines--next shots end of this month Fasting lab in 12/21/2011 Appointment: Caren Anders WPtel: [address] [place], [place] [phone] PAP 12/21/2011 Patient Education: Patient Medication Summary Completed 12/21/2011 Visit Plan: Encouraged fluids and contin ued use of stool softener. Pt. reports long standing concerns with constipation. Discussed that will likely proceed with colonoscopy. Referral to Dr. Long. Will apply betamethasone to rash and use rectal foam and topical dibucaine. 10/07/2011 Appointment: Anni Brennan WPtel: [address] [place], [place] [phone] ACUTE ILLNESS 10/07/2011 Patient Education: Patient Medication Summary Completed 10/07/2011 Visit Plan: Lisinopril 1/2 in AM and Ate nolol 1/2 pm for 5 days then stop lisinopril and increase atenolol to 25mg q PM Check 2-D Echo Long discusssion about Botox and clinical trial Start omnaris q HS Pt will try otc wart remover for feet for now 09/05/2011 Appointment: Caren Anders WPtel: [address] [place], [place] [phone] FOLLOW UP 09/05/2011 Patient Education: Patient Medication Summary Completed 09/05/2011 Visit Plan: imodium. Discussed the impor tance of hydration. Phoned Cefuroxime and codeine/guiaf into [facility] pharmacy. Pt. will notify if symptoms worsen. 04/28/2011 Appointment: Anni Brennan WPtel: [address] [place] [address] ACUTE ILLNESS 04/28/2011 Patient Education: Patient Medication Summary Completed 04/28/2011 Visit Plan: Use Aleve BID Observe nose a nd finger Check Chem 7, estradiol, FSH, LH, TSH 04/13/2011 Appointment: Caren Anders WPtel: [address] [place] [address] ACUTE ILLNESS 04/13/2011 Patient Education: Patient Medication Summary Completed 04/13/2011 Appointment: Anni Brennan WPtel: [address] [place] [address] ACUTE ILLNESS 02/04/2011 Patient Education: Patient Medication Summary Completed 02/04/2011 Appointment: Caren Anders WPtel: [address] [place] [address] LAB 12/21/2010 Patient Education: Patient Medication Summary Completed 12/21/2010 Appointment: Anni Brennan WPtel: [address] [place] [address] US PAP 12/06/2010 Patient Education: Patient Medication Summary Completed 12/06/2010 Visit Plan: Continue elavil but switch t o bedtime See if headaches improve once start CPAP Increase stool softener to 2 po BID and add Magnesium Don't think need to proceed with colonoscopy at this time since constipation is side effect of elavil and pt not having bleeding and no family history of colon cancer 04/14/2010 Appointment: Caren Anders WPtel: [address] [place], [place] [id number] FOLLOW UP 04/14/2010 Patient Education: Patient Medication Summary Completed 04/14/2010 Appointment: Caren Anders WPtel: [address] [place], [place] [id number] [place] LAB 03/17/2010 Visit Plan: Increase Topamax to 50mg BID Cont Flexeril See Neurology next week 02/16/2010 Appointment: Caren Anders WPtel: [address] [place], [place] [phone] US FOLLOW UP 02/16/2010 Patient Education: Patient Medication Summary Completed 02/16/2010 Visit Plan: Pt will seek re-eval if symp toms worsen. 02/03/2010 Appointment: Anni Brennan WPtel: [address] [place], [place] [id number] ACUTE ILLNESS 02/03/2010 Patient Education: Patient Medication Summary Completed 02/03/2010 Visit Plan: Start Topamax for prophylaxi s See Neurology Discussed triggers such as chocolate Start Cipro as ordered May try Midrin and Compazine as ordered Off work rest of week 01/27/2010 Appointment: Caren Anders WPtel: [address] [place], [place] [phone] ER Follow UP 01/27/2010 Patient Education: Patient Medication Summary Completed 01/27/2010 Visit Plan: Check CT head Suspect comple x migraine vs TIA--esequiel await CT results 01/25/2010 Appointment: Caren Anders WPtel: [address] [place], [place] [phone] ACUTE ILLNESS 01/25/2010 Patient Education: Patient Medication Summary Completed 01/25/2010 Appointment: Caren Anders WPtel: [address] [place], [place] [id number] [place] LAB 12/09/2009 Patient Education: Patient Medication Summary Completed 12/09/2009 Appointment: Anni Brennan WPtel: [address] [place], [place] [phone] PAP 12/08/2009 Patient Education: Patient Medication Summary Completed 12/08/2009 Appointment: Caren Anders WPtel: [address] [place], [place] [phone] ACUTE ILLNESS 09/01/2009 Patient Education: Patient Medication Summary Completed 09/01/2009 [facility]ment[facility] [phone] [id number] [facility] 08/26/2009 Patient Education: Patient Medication Summary Completed 08/26/2009 Referral: Partha Long WPtel: [phone] [id number] Referral sent[address] Dr. Coburn's office will call patient to mike sin. Completed Instructions Comment . Injection as above Rx for levaquin - pt reports she tolerates well Continue supportive care Follow up PRN . Rxs as above OTC meds reviewed - avoid decongestants Rest, fluids, vicks, humidifier, etc Follow up PRN . Office dip abnormal Culture pending Rx as above Supportive care reviewed Follow up PRN . Obtain lab results Pap done Mammogram ordered Patient awaiting on Dr. Cuello to restart botox for migraines . Discussed likely perimenopause Will observe through July and then at [facility] with fasting lab including hormone levels If bleeding returns will proceed with pelvic US Check into chiropractor for manipulation for right low back/hip pain . Toradol now with compazine po when get s home Proceed with updated EEG/neurology evaluation--discussed may need to go on antiseizure meds and drop out of migraine study No driving for 6mos [facility] [place]--he wants to see her in next 1-2weeks . Benadryl 25mg q HS Claritin 10mg q AM Prednisone for 1week Call in 1week on cough and rash . Reports that rash has been present in one form or another since the beginning of the year. Reports that betamethasone has been helpful in October. Possible dermatology consult if no improvment. Diflucan. Nystatin powder and will use betamethasone also. (Recently finished a round of antibiotics for Mycoplasma infection) . Azithromyacin and medrol dose pack. W ill focus on hydration and rest. Pt. will notify if symptoms worsen or do not improve. . fsating lab: CBC, CMP, TSH, Free T4 a nd Lipid with FERDINAND and RA. Nystatin to rash. Written RX for Medrol dose pack. Discussed that pt. will notify if no improvement with topical Nystatin. Pt. will use Benadryl at bedtime and cool pack to help refrain from scratching. . Pap done Mammo ordered Pt has started botox for Migraines--next shots end of this month Fasting lab in April . Encouraged fluids and continued use of stool softener. Pt. reports long standing concerns with constipation. Discussed that will likely proceed with colonoscopy. Referral to Dr. Long. Will apply betamethasone to rash and use rectal foam and topical dibucaine. . Lisinopril 1/2 in AM and Atenolol 1/2 pm for 5 days then stop lisinopril and increase atenolol to 25mg q PM Check 2-D Echo Long discusssion about Botox and clinical trial Start omnaris q HS Pt will try otc wart remover for feet for now . imodium. Discussed the importance of hydration. Phoned Cefuroxime and codeine/guiaf into [facility]. Pt. will notify if symptoms worsen. . Use Aleve BID Observe nose and finger Check Chem 7, estradiol, FSH, LH, TSH . Continue elavil but switch to bedtime See if headaches improve once start CPAP Increase stool softener to 2 po BID and add Magnesium Don't think need to proceed with colonoscopy at this time since constipation is side effect of elavil and pt not having bleeding and no family history of colon cancer . Increase Topamax to 50mg BID Cont Flexeril See Neurology next week . Pt will seek re-eval if symptoms worse n. . Start Topamax for prophylaxis See Neurology Discussed triggers such as chocolate Start Cipro as ordered May try Midrin and Compazine as ordered Off work rest of week . Check CT head Suspect complex migraine vs TIA--esequiel await CT results Medical Equipment No Medical Equipment data Health Concerns Section Health Concerns data not found Goals Section Goals data not found Interventions Section Interventions data not found Health Status Evaluations/Outcomes Section Health Status Evaluations/Outcomes data not found Advance Directives No Advance Directive data
--- OUTSIDE RECORDS SUMMARY | 2019-10-11 18:30 | XMS REPORT | CCD ---
Author Author Claudia Anders D.O. Organization [facility] Address [address] [place] [address] Phone Care Team Providers Care Supervisor Joiners Name Role Phone Caren Anders D.O., PP Unavailable CCM Unavailable Summary Purpose Interface Exchange Insurance Providers Payer name Policy type / Coverage type Covered democrat ID Effective Begin Date Effective End Date Blue Cross Blue Shield Blue Cross/Blue Shield [id number] Unknown Family history Father Diagnosis Age At Onset Congestive heart failure Unknown Cancer Unknown Diabetes mellitus Type 2 Unknown Social History Social History Element Codes Description Effective Dates Tobacco history SNOMED CT: 4905095 Former smoker 02/03/2015 Allergies, Adverse Reactions, Alerts [...] Start Date Stop Date Status Fill Instructions tizanidine 4 mg tablet RxNorm: 565358 TAKE ONE TABLET B Y MOUTH EVERY 8 HOURS NEEDED FOR MUSCLE SPASMS 06/18/2019 No Stop Date Active atenolol 25 mg tablet RxNorm: 711442 TAKE ONE TABLET BY MOUTH DAILY 06/18/2019 No Stop Date Active Naprosyn 500 mg tablet RxNorm: 859051 TAKE ONE TABLET BY MOUTH TWO TIMES A DAY 05/16/2019 No Stop Date Active atenolol 25 mg tablet RxNorm: 237465 Tablet(s) Oral PATEL E ONE TABLET BY MOUTH DAILY, 02/04/2019 06/03/2019 Inactive Maxalt 10 mg tablet RxNorm: 975818 TAKE ONE TABLET BY M OUTH AT HEADACHE ONSET. MAY REPEAT IN 2 HOURS IF HEADACHE REMAINS. MAX OF 2 TABLETS IN 24 HOURS 01/17/2019 02/12/2019 Inactive Zantac 300 mg tablet RxNorm: 554441 TAKE ONE TABLET BY MOUTH EVERY NIGHT AT BEDTIME 01/15/2019 03/15/2019 Inactive atenolol 25 mg tablet RxNorm: 816664 Tablet(s) TAKE ONE TABLET BY MOUTH DAILY, NEEDS APPT. BEFORE FURTHER REFILLS 01/08/2019 02/03/2019 Inactive atenolol 25 mg tablet RxNorm: 664328 Tablet(s) TAKE ONE TABLET BY MOUTH DAILY, NEEDS APPT. BEFORE FURTHER REFILLS 12/31/2018 02/04/2019 Inactive atenolol 25 mg tablet RxNorm: 933857 TAKE ONE TABLET BY MOUTH DAILY, NEEDS APPT. BEFORE FURTHER REFILLS 12/14/2018 12/31/2018 Inactive tizanidine 4 mg tablet RxNorm: 408150 TAKE ONE TABLET B Y MOUTH EVERY 8 HOURS NEEDED FOR MUSCLE SPASMS 11/16/2018 12/25/2018 Inactive Naprosyn 500 mg tablet RxNorm: 417821 1 Tablet(s) PO BID 10/01/2018 0 05/15/2019 Inactive atenolol 25 mg tablet RxNorm: 287042 Tablet(s) TAKE ONE TABLET BY MOUTH DAILY. 10/01/2018 12/13/2018 Inactive Maxalt 10 mg tablet RxNorm: 022954 1 Tablet(s) PO at he adache onset. May repeat in 2 hours if headache remains. Max of 2/24hr 10/01/2018 11/29/2018 In active atenolol 25 mg tablet RxNorm: 388624 TAKE ONE TABLET BY MOUTH DAILY. NEED APPOINTMENT BEFORE FURTHER REFILLS. 09/24/2018 09/30/2018 Inactive atenolol 25 mg tablet RxNorm: 104031 TAKE ONE TABLET BY MOUTH DAILY, NEEDS APPT. BEFORE FURTHER REFILLS 09/11/2018 09/23/2018 Inactive Naprosyn 500 mg tablet RxNorm: 237011 1 Tablet(s) PO BI D Due for annual labs and appointment 09/11/2018 09/30/2018 Inactive atenolol 25 mg tablet RxNorm: 321357 TAKE ONE TABLET BY MOUTH DAILY, NEEDS APPT. BEFORE FURTHER REFILLS 08/29/2018 09/10/2018 Inactive doxycycline hyclate 100 mg tablet RxNorm: 2297803 1 Tablet(s) PO BI D 07/27/2018 08/05/2018 Inactive doxycycline hyclate 100 mg tablet RxNorm: 2638272 1 Tablet(s) PO BI D 07/27/2018 07/26/2018 Inactive Ventolin HFA 90 mcg/actuation aerosol inhaler RxNorm: 2422630 2 Puff(s) INH Q6H 07/20/2018 08/18/2018 Inactive prednisone 20 mg tablet RxNorm: 586417 take 2 tabs for 3 days, then 1 tab for 3 days 07/20/2018 07/25/2018 Inactive azithromycin 250 mg tablet RxNorm: 891994 Take 2 tabs t cate and one tab days 2-5 07/20/2018 07/25/2018 Inactive z-pack atenolol 25 mg tablet RxNorm: 314317 TAKE ONE TABLET BY MOUTH DAILY, NEEDS APPT. BEFORE FURTHER REFILLS 07/13/2018 08/26/2018 Inactive mupirocin 2 % topical cream RxNorm: 148675 Application TOP BID 05/1601/14/2019 Inactive Valtrex 1 gram tablet RxNorm: 710763 1 Tablet(s) PO BID 06/11/2018 Inactive atenolol 25 mg tablet RxNorm: 717322 1 Tablet(s) PO QD NEEDS APPOINTMENT BEFORE FURTHER REFILLS 05/14/2018 07/12/2018 Inactive Naprosyn 500 mg tablet RxNorm: 802494 1 Tablet(s) PO BI D Due for annual labs and appointment 04/12/2018 05/11/2018 Inactive Zantac 300 mg tablet RxNorm: 693773 TAKE ONE TABLET BY MOUTH EVERY NIGHT AT BEDTIME 04/09/2018 07/07/2018 Inactive tizanidine 4 mg tablet RxNorm: 771789 TAKE ONE TABLET B Y MOUTH EVERY 8 HOURS NEEDED FOR MUSCLE SPASMS 02/20/2018 04/20/2018 Inactive Maxalt 10 mg tablet RxNorm: 551030 Tablet(s) TAKE ONE T ABLET BY MOUTH NEEDED FOR HEADACHE 01/09/2018 03/09/2018 Inactive Naprosyn 500 mg tablet RxNorm: 204599 Tablet(s) TAKE ON E TABLET BY MOUTH TWICE A DAY 01/08/2018 04/12/2018 Inactive atenolol 25 mg tablet RxNorm: 924919 1 Tablet(s) PO QD 01/08/2018 Inactive Naprosyn 500 mg tablet RxNorm: 175232 TAKE ONE TABLET BY MOUTH TWICE A DAY 12/10/2017 01/08/2018 Inactive tizanidine 4 mg tablet RxNorm: 961107 1 Tablet(s) PO Q8 H as needed for muscle spasm 11/27/2017 11/26/2017 Inactive Maxalt 10 mg tablet RxNorm: 251154 TAKE ONE TABLET BY M OUTH NEEDED FOR HEADACHE 11/13/2017 01/09/2018 Inactive Naprosyn 500 mg tablet RxNorm: 104938 TAKE ONE TABLET BY MOUTH TWICE A DAY 11/13/2017 12/09/2017 Inactive atenolol 25 mg tablet RxNorm: 621873 1 Tablet(s) PO QD 09/06/2017 Inactive Naprosyn 500 mg tablet RxNorm: 315160 1 Tablet(s) PO BID 09/04/2017 0 11/02/2017 Inactive Maxalt 10 mg tablet RxNorm: 054605 1 Tablet(s) PO as needed for headache 08/07/2017 11/12/2017 Inactive Naprosyn 500 mg tablet RxNorm: 658300 1 Tablet(s) PO BID 07/07/2017 0 09/04/2017 Inactive Naprosyn 500 mg tablet RxNorm: 791668 1 Tablet(s) PO BI D TAKE ONE TABLET BY MOUTH TWICE A DAY 06/08/2017 07/07/2017 Inactive tizanidine 4 mg tablet RxNorm: 021078 1 Tablet(s) PO Q8 H as needed for muscle spasm 05/10/2017 11/27/2017 Inactive atenolol 25 mg tablet RxNorm: 020526 1 Tablet(s) PO QD 05/10/2017 Inactive Maxalt 10 mg tablet RxNorm: 431240 1 Tablet(s) PO as needed for headache 05/10/2017 08/06/2017 Inactive atenolol 25 mg tablet RxNorm: 209505 1 Tablet(s) PO QD LAST REFILL---NEEDS UPDATED LAB AND APPOINTMENT 04/04/2017 05/03/2017 Inactive Zantac 300 mg tablet RxNorm: 615443 Tablet(s) TAKE ONE TABLET BY MOUTH EVERY NIGHT AT BEDTIME 04/03/2017 07/31/2017 Inactive atenolol 25 mg tablet RxNorm: 912628 1 Tablet(s) PO QD LAST REFILL---NEEDS UPDATED LAB AND APPOINTMENT 03/02/2017 04/04/2017 Inactive atenolol 25 mg tablet RxNorm: 404830 1 Tablet(s) PO QD LAST REFILL---NEEDS UPDATED LAB AND APPOINTMENT 02/01/2017 05/10/2017 Inactive Naprosyn 500 mg tablet RxNorm: 318654 1 Tablet(s) PO BI D TAKE ONE TABLET BY MOUTH TWICE A DAY 01/02/2017 06/08/2017 Inactive atenolol 25 mg tablet RxNorm: 011826 1 Tablet(s) PO QD Need Labs and appointment 12/26/2016 02/01/2017 Inactive Naprosyn 500 mg tablet RxNorm: 484078 1 Tablet(s) PO BI D TAKE ONE TABLET BY MOUTH TWICE A DAY 12/05/2016 01/02/2017 Inactive Naprosyn 500 mg tablet RxNorm: 165010 Tablet(s) TAKE ON E TABLET BY MOUTH TWICE A DAY 11/07/2016 12/05/2016 Inactive Naprosyn 500 mg tablet RxNorm: 924425 Tablet(s) TAKE ON E TABLET BY MOUTH TWICE A DAY 10/06/2016 11/07/2016 Inactive Naprosyn 500 mg tablet RxNorm: 789553 TAKE ONE TABLET BY MOUTH TWICE A DAY 09/04/2016 10/03/2016 Inactive Naprosyn 500 mg tablet RxNorm: 900480 TAKE ONE TABLET BY MOUTH TWICE A DAY 07/01/2016 08/29/2016 Inactive Naprosyn 500 mg tablet RxNorm: 534862 TAKE ONE TABLET BY MOUTH TWICE A DAY 04/27/2016 06/25/2016 Inactive Zantac 300 mg tablet RxNorm: 338538 TAKE ONE TABLET BY MOUTH EVERY NIGHT AT BEDTIME 03/09/2016 04/03/2017 Inactive Levaquin 500 mg tablet RxNorm: 137693 1 Tablet(s) PO QD 02/12/2016 Inactive azithromycin 250 mg tablet RxNorm: 078650 2 Tablet(s) P O on day one then 1 tab on days 2-5 01/25/2016 01/24/2016 Inactive Medrol (Camilo) 4 mg tablets in a dose pack RxNorm: 892468 Take as directed 01/25/2016 04/04/2017 Inactive Naprosyn 500 mg tablet RxNorm: 124631 1 Tablet(s) PO BID 01/15/2016 1 06/13/2015 Inactive Brisdelle 7.5 mg capsule RxNorm: 6584017 1 Capsule(s) PO QHS 201504/04/2017 Inactive atenolol 25 mg tablet RxNorm: 201641 TAKE ONE TABLET BY MOUTH DAILY 12/04/2015 12/26/2016 Inactive Maxalt 10 mg tablet RxNorm: 884555 1 Tablet(s) PO as needed for headache 10/05/2015 05/09/2017 Inactive Bactrim DS 800 mg-160 mg tablet RxNorm: 193035 1 Tablet(s) PO BID 0 10/01/2015 10/07/2015 Inactive Zantac 300 mg tablet RxNorm: 504572 Tablet(s) TAKE ONE TABLET BY MOUTH EVERY NIGHT AT BEDTIME 10/01/2015 11/29/2015 Inactive atenolol 25 mg tablet RxNorm: 098555 TAKE ONE TABLET BY MOUTH DAILY 06/09/2015 08/07/2015 Inactive Naprosyn 500 mg tablet RxNorm: 993489 TAKE ONE TABLET BY MOUTH TWICE A DAY 05/29/2015 01/15/2016 Inactive Zantac 300 mg tablet RxNorm: 157478 Tablet(s) TAKE ONE TABLET BY MOUTH EVERY NIGHT AT BEDTIME 03/30/2015 10/01/2015 Inactive Compazine 10 mg tablet RxNorm: 913826 1 Tablet(s) PO TID as nee ded for nausea 03/10/2015 05/26/2015 Inactive Prevacid 30 mg capsule,delayed release RxNorm: 986568 C apsule(s) TAKE ONE CAPSULE BY MOUTH ONCE A DAY 12/19/2014 05/17/2015 Inactive Naprosyn 500 mg tablet RxNorm: 706355 1 Tablet(s) PO BID 12/02/2014 1 Inactive Zantac 300 mg tablet RxNorm: 341350 TAKE ONE TABLET BY MOUTH EVERY NIGHT AT BEDTIME 09/18/2014 03/30/2015 Inactive Naprosyn 500 mg tablet RxNorm: 023324 1 Tablet(s) PO BID 09/04/2014 0 12/02/2014 Inactive atenolol 25 mg tablet RxNorm: 450236 1 Tablet(s) PO QD 07/17/2014 Inactive Zantac 300 mg tablet RxNorm: 465225 1 Tablet(s) PO QHS 06/30/201410/2014 Inactive Lamisil 250 mg tablet RxNorm: 915991 1 Tablet(s) PO QD 06/30/2014 Inactive Treximet 85 mg-500 mg tablet RxNorm: 292723 Tablet(s) PO PRN as needed 06/30/2014 03/09/2015 Inactive Prevacid 30 mg capsule,delayed release RxNorm: 170002 T VI ONE CAPSULE BY MOUTH ONCE A DAY 06/16/2014 12/19/2014 Inactive Treximet 85 mg-500 mg tablet RxNorm: 014284 Tablet(s) PO PRN as needed 06/06/2014 06/29/2014 Inactive Pepcid 20 mg tablet RxNorm: 523698 1 Tablet(s) PO QHS 03/19/201406/15 Inactive [SAVINGS FOR UNINSURED PATIENTS -- BIN:[id number], PCN: [id number], Group: [id number], ID# [id number], Process claim through [employer], for questions: . THIS IS NOT INSURANCE.] atenolol 25 mg tablet RxNorm: 887867 1 Tablet(s) PO QD 01/15/201409/2014 Inactive Pepcid 20 mg tablet RxNorm: 971470 1 Tablet(s) PO QHS 12/23/201312/13 Inactive Pepcid 20 mg tablet RxNorm: 929636 1 Tablet(s) PO QHS 12/23/201309/2013 Inactive [SAVINGS FOR UNINSURED PATIENTS -- BIN:0 41287, PCN: [id number], Group: [id number], ID# [id number], Process claim through [employer], for questions: . THIS IS NOT INSURANCE.] Prevacid 30 mg capsule,delayed release RxNorm: 551964 1 Capsule (s) PO QD 12/23/2013 06/15/2014 Inactive [SAVINGS FOR UNINSUR ED PATIENTS -- BIN:460466, PCN: [id number], Group: [id number], ID# [id number], Process claim through [employer], for questions: . THIS IS NOT INSURANCE.] loratadine 10 mg tablet RxNorm: 274203 TAKE ONE TABLET BY MOUTH EVERY MORNING 09/09/2013 04/06/2014 Inactive nystatin-triamcinolone 100,000 unit/g-0.1 % topical cream Rx Norm: 7529776 1 Application TOP QHS to rash 08/22/2013 06/29/2014 Inactive prednisone 20 mg tablet RxNorm: 053124 1 Tablet(s) PO BID 08/12/2013 08/18/2013 Inactive loratadine 10 mg tablet RxNorm: 181887 1 Tablet(s) PO QAM 08/12/2013 09/08/2013 Inactive Treximet 85 mg-500 mg tablet RxNorm: 793063 Tablet(s) PO PRN 201307/21/2013 Inactive atenolol 25 mg tablet RxNorm: 066806 1 Tablet(s) PO QD 07/22/201307/2013 Inactive Prevacid 30 mg capsule,delayed release RxNorm: 849297 1 Capsule (s) PO BID 07/22/2013 12/22/2013 Inactive nitrofurantoin macrocrystal 100 mg capsule RxNorm: 167222 1 Cap violeta(s) PO BID 05/31/2013 06/06/2013 Inactive albuterol sulfate HFA 90 mcg/actuation aerosol inhaler RxNor m: 668316 2 Puff(s) INH QID 05/31/2013 06/13/2013 Inactive azithromycin 250 mg tablet RxNorm: 153210 2 Tablet(s) PO QD 014 06/02/2013 Inactive Prevacid 30 mg capsule,delayed release RxNorm: 341485 1 Capsule (s) PO BID 03/20/2013 07/21/2013 Inactive Lamisil 250 mg tablet RxNorm: 081315 1 Tablet(s) PO QD 02/26/201304/2014 Inactive betamethasone valerate 0.1 % Topical Cream RxNorm: 116484 1 Tom lication TOP BID 11/29/2012 12/12/2012 Inactive Diflucan 100 mg tablet RxNorm: 445362 1 Tablet(s) PO QD 11/29/2012 Inactive nystatin 100,000 unit/gram Topical Powder RxNorm: 865608 1 Gram(s) TOP BID apply to affected areas twice daily 11/29/2012 12/08/2012 Inactive Medrol (Camilo) 4 mg tablets in a dose pack RxNorm: 450202 Tablet(s) PO as directed 11/12/2012 02/25/2013 Inactive Levaquin 750 mg tablet RxNorm: 830661 1 Tablet(s) PO QD antibiotic 11/12/2012 11/21/2012 Inactive Prevacid 30 mg capsule,delayed release RxNorm: 174960 1 Capsule (s) PO BID 09/17/2012 03/15/2013 Inactive azithromycin 250 mg tablet RxNorm: 829393 2 Tablet(s) PO QD 013 08/06/2012 Inactive nystatin 100,000 unit/g Ointment RxNorm: 833925 1 Gram( s) TOP BID apply to affected area twice daily 06/21/2012 06/30/2012 Inactive nystatin 100,000 unit/g Ointment RxNorm: 327573 1 Gram( s) TOP BID apply to affected area twice daily 06/04/2012 06/13/2012 Inactive Prevacid 30 mg capsule,delayed release RxNorm: 017512 1 Capsule (s) PO BID 03/01/2012 08/27/2012 Inactive Omnaris 50 mcg Nasal Borden RxNorm: 965234 2 Borden NASAL QD each nostril 12/21/2011 03/09/2015 Inactive betamethasone valerate 0.1 % Topical Cream RxNorm: 894928 1 Tom lication TOP BID 10/07/2011 10/20/2011 Inactive dibucaine 1 % Rectal Ointment RxNorm: 466575 1 RTL TID 10/07/2011 Inactive Proctofoam 1 % Topical Foam RxNorm: 160843 1 TOP BID 10/07/201107/2011 Inactive Treximet 85 mg-500 mg Tab RxNorm: 414848 Tablet(s) PO T vi 1 at headache onset and may repeat 1 in two hours if needed 09/05/2011 No Stop Date Active Prevacid 30 mg capsule,delayed release RxNorm: 749292 1 Capsule (s) PO BID 08/30/2011 02/25/2012 Inactive Flexeril 5 mg tablet RxNorm: 426165 1-2 Tablet(s) PO QHS 08/05/2011 0 06/29/2014 Inactive prn spasm cefuroxime axetil 500 mg Tab RxNorm: 904737 1 Tablet(s) PO BID 04/1405/07/2011 Inactive Flexeril 5 mg Tab RxNorm: 381934 1-2 Tablet(s) PO QHS 04/20/201107/14 Inactive prn spasm Prevacid 30 mg Capsule, delayed release RxNorm: 156428 1 Capsul e(s) PO BID 02/23/2011 08/30/2011 Inactive Prevacid 30 mg Cap RxNorm: 398585 1 Capsule(s) PO QD 02/21/201102/22 Inactive Pyridium 100 mg Tab RxNorm: 1312318 1 Tablet(s) PO TID 02/04/2011 Inactive will turn urine orange/red. Septra DS 800 mg-160 mg Tab RxNorm: 918403 1 Tablet(s) PO BID 02/0402/08/2011 Inactive lisinopril 10 mg Tab RxNorm: 727781 1 Tablet(s) PO QD 12/06/201012/14 Inactive amitriptyline 10 mg Tab RxNorm: 976760 2 Tablet(s) PO QD 12/06/2010 0 01/04/2011 Inactive Treximet 85 mg-500 mg Tab RxNorm: 037161 1 Tablet(s) PO 12/02/2010 Inactive at WONG onset, may repeat i po in 2hrs if WONG remains lisinopril 20 mg Tab RxNorm: 530395 1 Tablet(s) PO QD 09/10/201011/13 Inactive Prevacid 30 mg Cap RxNorm: 448396 1 Capsule(s) PO BID 08/09/201002/12 Inactive Flexeril 5 mg Tab RxNorm: 640941 1-2 Tablet(s) PO QHS prn spasm 05/200904/20/2011 Inactive Topamax 50 mg Tab RxNorm: 708975 1 Tablet(s) PO BID 02/16/20102009 Inactive Topamax 50 mg Tab RxNorm: 076897 1/2 Tablet(s) PO QHS for 1wk t hen 1 po QHS 02/15/2010 02/15/2010 Inactive Cefdinir 300 mg Cap RxNorm: 367840 1 Capsule(s) PO BID One tablet PO twice daily for 10 days. 02/03/2010 02/12/2010 Inactive Topamax 50 mg Tab RxNorm: 989351 1/2 Tablet(s) PO QHS for 1wk t hen 1 po QHS 01/27/2010 02/14/2010 Inactive Flexeril 5 mg Tab RxNorm: 974628 1 Tablet(s) PO TID prn spasm 01/2502/15/2010 Inactive Macrobid 100 mg Cap RxNorm: 1415801 1 Capsule(s) PO BID 09/01/2009 Inactive Prevacid 30 mg Cap RxNorm: 525669 1 Capsule(s) PO BID 09/01/200909/12 Inactive Flexeril 5 mg Tab RxNorm: 456709 1 Tablet(s) PO TID prn spasm 09/0109/30/2009 Inactive lisinopril 20 mg Tab RxNorm: 063065 1 Tablet(s) PO QD 08/31/200908/14 Inactive atenolol 25 mg Tab RxNorm: 529662 1 Tablet(s) PO QD No Start Date Inactive magnesium 100 mg tablet RxNorm: 1 Tablet(s) PO QD No Start Date Active Calcium with Vitamin D 600 mg-400 unit Tab RxNorm: 632562 1 Tab let(s) PO QD No Start Date Active Aspirin 81 mg Tab RxNorm: 889975 1 Tablet(s) PO QD No Start Date Active Brisdelle 7.5 mg capsule RxNorm: 9289342 1 Capsule(s) PO QHS No Sta rt Date 12/09/2015 Inactive Prevacid 30 mg Cap RxNorm: 472794 1 Capsule(s) PO QD No Start Date Inactive Ultram 50 mg Tab RxNorm: 131129 2 Tablet(s) PO QID prn headache No Start Date 04/13/2010 Inactive tizanidine 4 mg tablet RxNorm: 519385 1 Tablet(s) PO Q8 H as needed for muscle spasm No Start Date 05/09/2017 Inactive nystatin-triamcinolone 100,000 unit/g-0.1 % topical cream Rx Norm: 5696208 1 Application TOP QHS to rash No Start Date 08/21/2013 Inactive Imitrex 100 mg tablet RxNorm: 699678 1 Tablet(s) PO at WONG onset-May repeat in 6hours as needed No Start Date 08/03/2015 Inactive Treximet 85 mg-500 mg Tab RxNorm: 434038 1 Tablet(s) PO at WONG onset, may repeat i po in 2hrs if WONG remains No Start Date 12/02/2010 Inactive alprazolam 0.25 mg tablet RxNorm: 414229 1 Tablet(s) PO QPM No Star t Date 08/03/2015 Inactive amitriptyline 25 mg Tab RxNorm: 812223 1 Tablet(s) PO QAM No Start Date 12/06/2010 Inactive amitriptyline 10 mg Tab RxNorm: 931682 Tablet(s) PO Patel e 4 tablets by mouth 1 week before period and week of period and 3 tablets other 2 weeks of month No Start Date 09/04/2011 Inactive Omnaris 50 mcg Nasal Borden RxNorm: 808113 2 Borden NASAL QD each nostril No Start Date 12/20/2011 Inactive sertraline 25 mg tablet RxNorm: 792063 1 Tablet(s) PO QD No Start D ate 08/03/2015 Inactive atenolol 25 mg tablet RxNorm: 477231 1 Tablet(s) PO QD No Start Date 07/21/2013 Inactive hydrochlorothiazide 25 mg tablet RxNorm: 173712 1 Tablet(s) PO QAM No Start Date 05/26/2015 Inactive Maxalt 10 mg tablet RxNorm: 293479 Tablet(s) PO as needed for h eadache No Start Date 10/04/2015 Inactive atenolol 25 mg Tab RxNorm: 409882 1/2 Tablet(s) PO QD No Start Date 0 12/20/2011 Inactive Medrol (Camilo) 4 mg tablets in a dose pack RxNorm: 089549 Tablet(s) PO as directed No Start Date 11/11/2012 Inactive Naprosyn 500 mg tablet RxNorm: 819191 1 Tablet(s) PO BID No Start D ate 09/04/2014 Inactive promethazine-codeine 6.25 mg-10 mg/5 mL syrup RxNorm: 042627 PO No Start Date 06/29/2014 Inactive Flexeril 5 mg Tab RxNorm: 787880 2 Tablet(s) PO QHS No Start Date Inactive Treximet 85 mg-500 mg tablet RxNorm: 022688 Tablet(s) PO PRN No Sta rt Date 07/21/2013 Inactive cyclobenzaprine 5 mg tablet RxNorm: 120027 1-2 Tablet(s) PO QHS No Start Date 03/09/2015 Inactive atenolol 25 mg tablet RxNorm: 584433 1 Tablet(s) PO QD No Start Date 12/25/2016 Inactive lisinopril 20 mg Tab RxNorm: 503898 1 Tablet(s) PO QD No Start Date 0 10/06/2011 Inactive Topamax 50 mg Tab RxNorm: 445531 1 Tablet(s) PO BID No Start Date 08/2009 Inactive Treximet 85 mg-500 mg Tab RxNorm: 676824 Tablet(s) PO T vi 1 at headache onset and may repeat 1 in two hours if needed No Start Date 09/04/2011 Inactive Stool Softener 100 mg Cap RxNorm: 4914442 3 Capsule(s) PO QD No Sta rt Date 06/29/2014 Inactive flax seed oil RxNorm: 1 PO QD No Start Date 03/09/2015 Inactive Medication Administered No Medication Administered data Immunizations Vaccine Codes Date Status Tetanus, Diptheria, Pertussis CVX: 115 06/11/2018 Co mplete Results Observation Observation Code Item Item Code Result Date S ervice Location COMPREHENSIVE METABOLIC 35799 AST 15 U/L 2018 Unknown COMPREHENSIVE METABOLIC 21332 ALT 15 U/L 2018 Unknown COMPREH[facility] MET[facility]OL[facility] 74584 BUN 19 mg/dL 2018 Unknown COMPREHENSIVE METABOLIC 14523 ALBUMIN 4.3 g/dL 2018 Unknown COMPREHENSIVE METABOLIC 18604 CHLORIDE 106 mmol/L 06/29 Unknown COMPREHENSIVE METABOLIC 37602 Bili Total 0.6 mg/dL 06/29 Unknown COMPREHENSIVE METABOLIC 09773 ALK PHOS 82 U/L 2018 Unknown COMPREHENSIVE METABOLIC 96800 SODIUM 141 mmol/L 06/29 Unknown COMPREHENSIVE METABOLIC 38242 CREATININE 0.66 mg/dL 06/15 Unknown COMPREHENSIVE METABOLIC 97173 CALCIUM 9.6 mg/dL 2018 Unknown COMPREHENSIVE METABOLIC 53391 POTASSIUM 4.3 mmol/L 06/29 Unknown COMPREHENSIVE METABOLIC 17550 Total Protein 7.0 g/dL Unknown COMPREHENSIVE METABOLIC 26998 Glucose 102 mg/dL 2018 Unknown COMPREHENSIVE METABOLIC 12828 Bicarbonate 29 mmol/L 06/15 Unknown COMPREHENSIVE METABOLIC 61414 AGAP 6 mmol/L 2018 Unknown FREE T4 33623 T4 Free 1.04 ng/dL 06/29/2018 Unknown GFR CALC 2432154 GFR Non Afr Amr >60 mL/min 06/29/2018 Un known GFR CALC [id number] GFR Afr Amr >60 mL/min 06/29/2018 Unknow n [facility] 28455 Cholesterol 197 mg/dL 06/29/2018 Unkno wn [facility] 57908 Triglyceride 70 mg/dL 06/29/2018 Unkn own [facility] 25346 HDL CHOLESTEROL 45 mg/dL 06/29/2018 U nknown [facility] 12359 Chol/HDL Ratio 4.38 ratio 06/29/2018 U nknown L[facility] 77265 NON-HDL Chol 152 mg/dL 06/29/2018 Unkn own [facility] 43423 LDL Cholesterol 138 mg/dL 06/29/2018 U nknown THYROID STIMULATING HORMONE 94182 TSH 1.477 uIU/mL 06/29/2018 Unknown COMPLETE BLOOD COUNT [id number] WBC 5.2 10e9/L 06/29/19 19 Unknown COMPLETE BLOOD COUNT [id number] RBC 4.93 10e12/L 2018 Unknown COMPLETE BLOOD COUNT [id number] HEMOGLOBIN 14.3 g/dL 06/29/19 19 Unknown COMPLETE BLOOD COUNT [id number] HEMATOCRIT 42.9 % 06/29/19 19 Unknown COMPLETE BLOOD COUNT [id number] MCV 87.0 fL 9 Unknown COMPLETE BLOOD COUNT [id number] MCH 29.0 pg 9 Unknown COMPLETE BLOOD COUNT [id number] MCHC 33.3 g/dL 9 Unknown COMPLETE BLOOD COUNT [id number] PLATELET COUNT 289 10e9/L Unknown COMPLETE BLOOD COUNT [id number] Mean Plt Volume 10.6 fL Unknown COMPLETE BLOOD COUNT [id number] Neut Auto 74.1 % 9 Unknown COMPLETE BLOOD COUNT [id number] Lymph Auto 14.7 % 06/29/19 19 Unknown COMPLETE BLOOD COUNT [id number] Elbert Auto 8.3 % 9 Unknown COMPLETE BLOOD COUNT [id number] RDW 13.7 % 9 Unknown COMPLETE BLOOD COUNT [id number] Eos Auto 2.7 % 9 Unknown COMPLETE BLOOD COUNT [id number] Baso Auto 0.2 % 9 Unknown COMPLETE BLOOD COUNT [id number] Neutrophil Abs 3.85 10e9/L Unknown COMPLETE BLOOD COUNT [id number] Lymphocyte Abs 0.76 10e9/L Unknown COMPLETE BLOOD COUNT [id number] Monocyte Abs 0.43 10e9/L 06/15 Unknown COMPLETE BLOOD COUNT [id number] Eosinophil Abs 0.14 10e9/L Unknown COMPLETE BLOOD COUNT [id number] RDW-SD 42.7 fL 9 Unknown COMPLETE BLOOD COUNT [id number] Basophil Abs 0.01 10e9/L 06/15 Unknown IRON 48173 IRON TEST 42 UG/DL 07/31/2014 Unknown FERRITIN 60230 FERRITIN 10 NG/ML 07/31/2014 Unknown VITAMIN B 12 FOLIC ACID 85674|55266 VIT B 12 233 PG/ML 07/13 Unknown VITAMIN B 12 FOLIC ACID 92091|50768 FOLIC ACID 8.7 NG/ML Unknown COMPLETE BLOOD COUNT [id number] WBC 6.4 10e9/L 07/30/19 15 Unknown COMPLETE BLOOD COUNT [id number] RBC 4.36 10e12/L 2014 Unknown COMPLETE BLOOD COUNT [id number] HGB 11.5 g/dL 5 Unknown COMPLETE BLOOD COUNT [id number] HCT DET 35.3 % 5 Unknown COMPLETE BLOOD COUNT [id number] MCV 81.0 fL 5 Unknown COMPLETE BLOOD COUNT [id number] MCH 26.4 pg 5 Unknown COMPLETE BLOOD COUNT [id number] MCHC 32.6 g/dL 5 Unknown COMPLETE BLOOD COUNT [id number] PLT 329 10e9/L 07/30/19 15 Unknown COMPLETE BLOOD COUNT [id number] MPV 10.4 fL 5 Unknown COMPLETE BLOOD COUNT [id number] ROLAND % 69.6 % 5 Unknown COMPLETE BLOOD COUNT [id number] LY % 21.3 % 5 Unknown COMPLETE BLOOD COUNT [id number] MON % 6.8 % 5 Unknown COMPLETE BLOOD COUNT [id number] EOS % 2.0 % 5 Unknown COMPLETE BLOOD COUNT [id number] BASO % 0.3 % 5 Unknown COMPLETE BLOOD COUNT [id number] RDW 15.9 % 5 Unknown COMPLETE BLOOD COUNT [id number] ABS ROLAND 4.45 10e9/L 015 Unknown COMPLETE BLOOD COUNT [id number] ABS LYMPH 1.36 10e9/L 015 Unknown COMPLETE BLOOD COUNT [id number] ABS MONO 0.44 10e9/L 015 Unknown COMPLETE BLOOD COUNT [id number] ABS EOS 0.13 10e9/L 015 Unknown COMPLETE BLOOD COUNT [id number] ABS BASO 0.02 10e9/L 015 Unknown COMPLETE BLOOD COUNT [id number] RDW-SD 46.1 fL 5 Unknown LIPID GROUP [id number] HDL TEST 41 MG/DL 07/29/2014 Unknown LIPID GROUP [id number] TRIG 92 MG/DL 07/29/2014 Unknown LIPID GROUP [id number] TEST LDL 118 MG/DL 07/29/2014 Unknown LIPID GROUP 65172 CHOL 177 MG/DL 07/29/2014 Unknown LIPID GROUP 65496 RCHOL/HDL 4.32 RATIO 07/29/2014 Unknow n LIPID GROUP 93709 NON-HDL CH 136 MG/DL 07/29/2014 Unknow n GFR CALC [id number] GFR AA >60 ML/MIN 07/29/2014 Unknown GFR CALC [id number] GFR NON-AA >60 ML/MIN 07/29/2014 Unknown FREE T4 [id number] FREE T4 1.10 NG/DL 07/29/2014 Unknown COMPREHENSIVE METABOLIC 85385 AST 13 U/L 2014 Unknown COMPREHENSIVE METABOLIC 40362 ALT 12 IU/L 2014 Unknown COMPREHENSIVE METABOLIC 99804 BUN 16 MG/DL 2014 Unknown COMPREHENSIVE METABOLIC 90276 ALBUMIN 4.1 GM/DL 2014 Unknown COMPREHENSIVE METABOLIC 49290 CHLORIDE 106 MMOL/L 07/29 Unknown COMPREHENSIVE METABOLIC 24700 BILI TOT 0.4 MG/DL 2014 Unknown COMPREHENSIVE METABOLIC 12025 ALK PHOS 77 U/L 2014 Unknown COMPREHENSIVE METABOLIC 53946 SODIUM 137 MMOL/L 07/29 Unknown COMPREHENSIVE METABOLIC 07379 CREATININE 0.65 MG/DL 07/13 Unknown COMPREHENSIVE METABOLIC 99092 CALCIUM 9.0 MG/DL 2014 Unknown COMPREHENSIVE METABOLIC 02789 POTASSIUM 4.0 MMOL/L 07/29 Unknown COMPREHENSIVE METABOLIC 92119 PROT TOT 6.3 GM/DL 2014 Unknown COMPREHENSIVE METABOLIC 15209 Glucose 98 MG/DL 2014 Unknown COMPREHENSIVE METABOLIC 74173 BICARB 26 MMOL/L 2014 Unknown COMPREHENSIVE METABOLIC 62344 ANION GAP 5 MEQ/L 2014 Unknown THYROID STIMULATING HORMONE 41782 TSH 1.678 uIU/ML 07/29/2014 Unknown GFR CALC 3649682 GFR AA >60 ML/MIN 02/26/2013 Unknown GFR CALC 2238868 GFR NON-AA >60 ML/MIN 02/26/2013 Unknown THYROID STIMULATING HORMONE 78417 TSH 1.635 uIU/ML 02/26/2013 Unknown COMPLETE BLOOD COUNT [id number] WBC 7.8 10e9/L 02/27/20 13 Unknown COMPLETE BLOOD COUNT [id number] RBC 4.60 10e12/L 2012 Unknown COMPLETE BLOOD COUNT 0230642 HGB 12.7 g/dL 3 Unknown COMPLETE BLOOD COUNT 0046255 HCT DET 38.1 % 3 Unknown COMPLETE BLOOD COUNT 3074293 MCV 82.8 fL 3 Unknown COMPLETE BLOOD COUNT 8802085 MCH 27.6 pg 3 Unknown COMPLETE BLOOD COUNT 7491714 MCHC 33.3 g/dL 3 Unknown COMPLETE BLOOD COUNT 2823016 PLT 324 10e9/L 02/27/20 13 Unknown COMPLETE BLOOD COUNT [id number] MPV 10.2 fL 3 Unknown COMPLETE BLOOD COUNT [id number] ROLAND % 72.0 % 3 Unknown COMPLETE BLOOD COUNT 3030007 LY % 20.1 % 3 Unknown COMPLETE BLOOD COUNT 9604828 MON % 6.3 % 3 Unknown COMPLETE BLOOD COUNT 2451008 EOS % 1.3 % 3 Unknown COMPLETE BLOOD COUNT [id number] BASO % 0.3 % 3 Unknown COMPLETE BLOOD COUNT 0888396 RDW 14.4 % 3 Unknown COMPLETE BLOOD COUNT [id number] ABS ROLAND 5.62 10e9/L 013 Unknown COMPLETE BLOOD COUNT [id number] ABS LYMPH 1.57 10e9/L 013 Unknown COMPLETE BLOOD COUNT [id number] ABS MONO 0.49 10e9/L 013 Unknown COMPLETE BLOOD COUNT [id number] ABS EOS 0.10 10e9/L 013 Unknown COMPLETE BLOOD COUNT [id number] ABS BASO 0.02 10e9/L 013 Unknown COMPLETE BLOOD COUNT [id number] RDW-SD 42.8 fL 3 Unknown COMPREHENSIVE METABOLIC 58497 AST 15 U/L 2012 Unknown COMPREHENSIVE METABOLIC 29387 ALT 14 IU/L 2012 Unknown COMPREHENSIVE METABOLIC 81449 BUN 14 MG/DL 2012 Unknown COMPREHENSIVE METABOLIC 09469 ALBUMIN 4.2 GM/DL 2012 Unknown COMPREHENSIVE METABOLIC 04211 CHLORIDE 104 MMOL/L 02/26 Unknown COMPREHENSIVE METABOLIC 02820 BILI TOT 0.6 MG/DL 2012 Unknown COMPREHENSIVE METABOLIC 20971 ALK PHOS 71 U/L 2012 Unknown COMPREHENSIVE METABOLIC 37779 SODIUM 136 MMOL/L 02/26 Unknown COMPREHENSIVE METABOLIC 10084 CREATININE 0.62 MG/DL 02/12 Unknown COMPREHENSIVE METABOLIC 39838 CALCIUM 9.5 MG/DL 2012 Unknown COMPREHENSIVE METABOLIC 28943 POTASSIUM 4.1 MMOL/L 02/26 Unknown COMPREHENSIVE METABOLIC 43544 PROT TOT 6.7 GM/DL 2012 Unknown COMPREHENSIVE METABOLIC 17196 Glucose 92 MG/DL 2012 Unknown COMPREHENSIVE METABOLIC 89147 BICARB 26 MMOL/L 2012 Unknown COMPREHENSIVE METABOLIC 45463 ANION GAP 6 MEQ/L 2012 Unknown LIPID GROUP 79023 HDL TEST 45 MG/DL 02/26/2013 Unknown LIPID GROUP 04504 TRIG 107 MG/DL 02/26/2013 Unknown LIPID GROUP 34246 TEST LDL 129 MG/DL 02/26/2013 Unknown LIPID GROUP 97178 CHOL 195 MG/DL 02/26/2013 Unknown LIPID GROUP 50768 RCHOL/HDL 4.33 RATIO 02/26/2013 Unknow n FREE T4 85915 FREE T4 1.07 NG/DL 02/26/2013 Unknown MYCOPLASMA ANTIBODY, IFA [id number] MYCO G IFA 1:128 06/2012 Unknown MYCOPLASMA ANTIBODY, IFA [id number] MYCO M IFA <1:10 06/2012 Unknown MYCOPLASMA ANTIBODY, IFA [id number] MYCO INTER SEE BELO 06/2012 Unknown COMPLETE BLOOD COUNT [id number] WBC 6.0 10e9/L 11/13/19 13 Unknown COMPLETE BLOOD COUNT 1901574 RBC 4.68 10e12/L 2012 Unknown COMPLETE BLOOD COUNT 2392342 HGB 12.9 g/dL 3 Unknown COMPLETE BLOOD COUNT 4061565 HCT DET 38.7 % 3 Unknown COMPLETE BLOOD COUNT 9903483 MCV 82.7 fL 3 Unknown COMPLETE BLOOD COUNT 8842114 MCH 27.6 pg 3 Unknown COMPLETE BLOOD COUNT 7296215 MCHC 33.3 g/dL 3 Unknown COMPLETE BLOOD COUNT 5537588 PLT 297 10e9/L 11/13/19 13 Unknown COMPLETE BLOOD COUNT 3375429 MPV 11.1 fL 3 Unknown COMPLETE BLOOD COUNT [id number] ROLAND % 63.8 % 3 Unknown COMPLETE BLOOD COUNT 8697828 LY % 28.2 % 3 Unknown COMPLETE BLOOD COUNT [id number] MON % 6.6 % 3 Unknown COMPLETE BLOOD COUNT 6433184 EOS % 1.2 % 3 Unknown COMPLETE BLOOD COUNT [id number] BASO % 0.2 % 3 Unknown COMPLETE BLOOD COUNT 5420459 RDW 14.9 % 3 Unknown COMPLETE BLOOD COUNT 9709834 ABS ROLAND 3.83 10e9/L 013 Unknown COMPLETE BLOOD COUNT [id number] ABS LYMPH 1.69 10e9/L 013 Unknown COMPLETE BLOOD COUNT [id number] ABS MONO 0.40 10e9/L 013 Unknown COMPLETE BLOOD COUNT 4018586 ABS EOS 0.07 10e9/L 013 Unknown COMPLETE BLOOD COUNT [id number] ABS BASO 0.01 10e9/L 013 Unknown COMPLETE BLOOD COUNT 8637189 RDW-SD 44.8 fL 3 Unknown HEMOGLOBIN A1C (GLYCOSYLATED) [id number] A1C HPLC 36383-9 5.1 % 06/06/2012 Unknown RA FACTOR 45889 RA FACTOR <20.0 IU/ML 06/06/2012 Unknown ANTINUCLEAR ANTIBODY SCREEN 44647 FERDINAND SCR <1:80 Unknown INSULIN SERUM 60642 INSULIN 12.2 mU/L 06/06/2012 Unkno wn COMPREHENSIVE METABOLIC 00613 AST 13 U/L 2012 Unknown COMPREHENSIVE METABOLIC 38935 ALT 13 IU/L 2012 Unknown COMPREHENSIVE METABOLIC 99320 BUN 21 MG/DL 2012 Unknown COMPREHENSIVE METABOLIC 17553 ALBUMIN 4.7 GM/DL 2012 Unknown COMPREHENSIVE METABOLIC 63100 CHLORIDE 106 MMOL/L 06/05 Unknown COMPREHENSIVE METABOLIC 13669 BILI TOT 0.6 MG/DL 2012 Unknown COMPREHENSIVE METABOLIC 11841 ALK PHOS 61 U/L 2012 Unknown COMPREHENSIVE METABOLIC 10208 SODIUM 139 MMOL/L 06/05 Unknown COMPREHENSIVE METABOLIC 14445 CREATININE 0.71 MG/DL 05/16 Unknown COMPREHENSIVE METABOLIC 46247 CALCIUM 9.8 MG/DL 2012 Unknown COMPREHENSIVE METABOLIC 86832 POTASSIUM 4.6 MMOL/L 06/05 Unknown COMPREHENSIVE METABOLIC 01554 PROT TOT 6.7 GM/DL 2012 Unknown COMPREHENSIVE METABOLIC 69081 Glucose 104 MG/DL 2012 Unknown COMPREHENSIVE METABOLIC 95717 BICARB 24 MMOL/L 2012 Unknown COMPREHENSIVE METABOLIC 96493 ANION GAP 9 MEQ/L 2012 Unknown GFR CALC 2411760 GFR AA >60 ML/MIN 06/05/2012 Unknown GFR CALC 6321300 GFR NON-AA >60 ML/MIN 06/05/2012 Unknown LIPID GROUP 00247 HDL TEST 46 MG/DL 06/05/2012 Unknown LIPID GROUP 78739 TRIG 77 MG/DL 06/05/2012 Unknown LIPID GROUP 98246 TEST LDL 135 MG/DL 06/05/2012 Unknown LIPID GROUP 35623 CHOL 196 MG/DL 06/05/2012 Unknown LIPID GROUP 66189 RCHOL/HDL 4.26 RATIO 06/05/2012 Unknow n COMPLETE BLOOD COUNT [id number] WBC 5.9 10e9/L 06/05/19 13 Unknown COMPLETE BLOOD COUNT [id number] RBC 5.02 10e12/L 2012 Unknown COMPLETE BLOOD COUNT 2125637 HGB 13.9 g/dL 3 Unknown COMPLETE BLOOD COUNT 9090294 HCT DET 41.5 % 3 Unknown COMPLETE BLOOD COUNT 7557176 MCV 82.7 fL 3 Unknown COMPLETE BLOOD COUNT 2433908 MCH 27.7 pg 3 Unknown COMPLETE BLOOD COUNT 4341790 MCHC 33.5 g/dL 3 Unknown COMPLETE BLOOD COUNT 5727781 PLT 323 10e9/L 06/05/19 13 Unknown COMPLETE BLOOD COUNT 9571978 MPV 11.3 fL 3 Unknown COMPLETE BLOOD COUNT [id number] ROLAND % 70.6 % 3 Unknown COMPLETE BLOOD COUNT 9976137 LY % 21.4 % 3 Unknown COMPLETE BLOOD COUNT [id number] MON % 6.4 % 3 Unknown COMPLETE BLOOD COUNT 7768039 EOS % 1.3 % 3 Unknown COMPLETE BLOOD COUNT 8009197 BASO % 0.3 % 3 Unknown COMPLETE BLOOD COUNT 3972483 RDW 14.9 % 3 Unknown COMPLETE BLOOD COUNT 9841573 ABS ROLAND 4.17 10e9/L 013 Unknown COMPLETE BLOOD COUNT 9829781 ABS LYMPH 1.26 10e9/L 013 Unknown COMPLETE BLOOD COUNT 2605357 ABS MONO 0.38 10e9/L 013 Unknown COMPLETE BLOOD COUNT 2386183 ABS EOS 0.08 10e9/L 013 Unknown COMPLETE BLOOD COUNT [id number] ABS BASO 0.02 10e9/L 013 Unknown COMPLETE BLOOD COUNT [id number] RDW-SD 44.8 fL 3 Unknown THYROID STIMULATING HORMONE 31316 TSH 1.684 uIU/ML 06/05/2012 Unknown FREE T4 16408 FREE T4 1.19 NG/DL 06/05/2012 Unknown BASIC METABOLIC PANEL 25771 Glucose 100 MG/DL 04/13/20 11 Unknown BASIC METABOLIC PANEL 49723 CREATININE 0.66 MG/DL 2010 Unknown BASIC METABOLIC PANEL 98470 BUN 18 MG/DL 04/13/20 11 Unknown BASIC METABOLIC PANEL 05155 SODIUM 138 MMOL/L 011 Unknown BASIC METABOLIC PANEL 64329 BICARB 26 MMOL/L 04/13/20 11 Unknown BASIC METABOLIC PANEL 19944 POTASSIUM 4.0 MMOL/L 011 Unknown BASIC METABOLIC PANEL 62929 ANION GAP 9 MEQ/L 04/13/20 11 Unknown BASIC METABOLIC PANEL 90284 CHLORIDE 103 MMOL/L 011 Unknown BASIC METABOLIC PANEL 30871 CALCIUM 9.6 MG/DL 04/13/20 11 Unknown FSH 4702550 FSH 4.6 MIU/ML 04/13/2011 Unknown GFR CALC 0615476 GFR AA >60 ML/MIN 04/13/2011 Unknown GFR CALC 2349824 GFR NON-AA >60 ML/MIN 04/13/2011 Unknown ESTRADIOL SERUM 30742 ESTRADIOL 113 PG/ML 04/13/2011 [place] [address] LH 3.7 MIU/ML 04/13/2011 Unknown THYROID STIMULATING HORMONE 79477 TSH 1.995 uIU/ML 04/13/2011 Unknown LIPID GROUP 72887 HDL TEST 40 MG/DL 12/21/2010 Unknown LIPID GROUP 22675 TRIG 66 MG/DL 12/21/2010 Unknown LIPID GROUP 93660 TEST LDL 132 MG/DL 12/21/2010 Unknown LIPID GROUP 65964 CHOL 185 MG/DL 12/21/2010 Unknown LIPID GROUP 00797 RCHOL/HDL 4.63 RATIO 12/21/2010 Unknow n THYROID STIMULATING HORMONE 13870 TSH 1.876 uIU/ML 12/21/2010 Unknown COMPLETE BLOOD COUNT 50389 WBC 7.0 10e9/L 12/22/19 11 Unknown COMPLETE BLOOD COUNT 32839 RBC 4.28 10e12/L 2010 Unknown COMPLETE BLOOD COUNT 26701 HGB 12.1 g/dL 1 Unknown COMPLETE BLOOD COUNT 68338 HCT DET 36.1 % 1 Unknown COMPLETE BLOOD COUNT 64443 MCV 84.3 fL 1 Unknown COMPLETE BLOOD COUNT 64136 MCH 28.3 pg 1 Unknown COMPLETE BLOOD COUNT 76652 MCHC 33.5 g/dL 1 Unknown COMPLETE BLOOD COUNT 99212 PLT 306 10e9/L 12/22/19 11 Unknown COMPLETE BLOOD COUNT 83878 MPV 10.4 fL 1 Unknown COMPLETE BLOOD COUNT 28305 ROLAND % 69.9 % 1 Unknown COMPLETE BLOOD COUNT 28173 LY % 22.2 % 1 Unknown COMPLETE BLOOD COUNT 63658 MON % 5.7 % 1 Unknown COMPLETE BLOOD COUNT 05072 EOS % 1.9 % 1 Unknown COMPLETE BLOOD COUNT 37396 BASO % 0.3 % 1 Unknown COMPLETE BLOOD COUNT 80581 RDW 14.0 % 1 Unknown COMPLETE BLOOD COUNT 37802 ABS ROLAND 4.89 10e9/L 011 Unknown COMPLETE BLOOD COUNT 08274 ABS LYMPH 1.55 10e9/L 011 Unknown COMPLETE BLOOD COUNT 85883 ABS MONO 0.40 10e9/L 011 Unknown COMPLETE BLOOD COUNT 42605 ABS EOS 0.13 10e9/L 011 Unknown COMPLETE BLOOD COUNT 53966 ABS BASO 0.02 10e9/L 011 Unknown COMPLETE BLOOD COUNT 36423 RDW-SD 41.5 fL 1 Unknown FREE T4 94048 FREE T4 1.02 NG/DL 12/21/2010 Unknown COMPREHENSIVE METABOLIC 74985 AST 11 U/L 2010 Unknown COMPREHENSIVE METABOLIC 07308 ALT 9 IU/L 2010 Unknown COMPREHENSIVE METABOLIC 82031 BUN 16 MG/DL 2010 Unknown COMPREHENSIVE METABOLIC 25687 ALBUMIN 4.0 GM/DL 2010 Unknown COMPREHENSIVE METABOLIC 92651 CHLORIDE 106 MMOL/L 12/21 Unknown COMPREHENSIVE METABOLIC 43096 BILI TOT 0.3 MG/DL 2010 Unknown COMPREHENSIVE METABOLIC 23216 ALK PHOS 59 U/L 2010 Unknown COMPREHENSIVE METABOLIC 44043 SODIUM 139 MMOL/L 12/21 Unknown COMPREHENSIVE METABOLIC 11048 CREATININE 0.66 MG/DL 01/2011 Unknown COMPREHENSIVE METABOLIC 43753 CALCIUM 8.9 MG/DL 2010 Unknown COMPREHENSIVE METABOLIC 59745 POTASSIUM 4.2 MMOL/L 12/21 Unknown COMPREHENSIVE METABOLIC 52065 PROT TOT 6.5 GM/DL 2010 Unknown COMPREHENSIVE METABOLIC 42444 Glucose 101 MG/DL 2010 Unknown COMPREHENSIVE METABOLIC 95660 BICARB 28 MMOL/L 2010 Unknown COMPREHENSIVE METABOLIC 08274 ANION GAP 5 MEQ/L 2010 Unknown GFR CALC 1936348 GFR AA >60 ML/MIN 12/21/2010 Unknown GFR CALC 8238074 GFR NON-AA >60 ML/MIN 12/21/2010 Unknown LIPID GROUP 22475 HDL TEST 40 MG/DL 12/10/2009 Unknown LIPID GROUP 04795 TRIG 98 MG/DL 12/10/2009 Unknown LIPID GROUP 83816 TEST LDL 128 MG/DL 12/10/2009 Unknown LIPID GROUP 60853 CHOL 188 MG/DL 12/10/2009 Unknown LIPID GROUP 11861 RCHOL/HDL 4.70 RATIO 12/10/2009 Unknow n DF 9015064 POLY 74 % 12/09/2009 Unknown DF [id number] BAND 0 % 12/09/2009 Unknown DF 9185434 LYMP 21 % 12/09/2009 Unknown DF 3125944 MONO 3 % 12/09/2009 Unknown DF 8308968 EOS 2 % 12/09/2009 Unknown DF [id number] BASO 0 % 12/09/2009 Unknown GFR CALC 5475758 GFR AA >60 ML/MIN 12/09/2009 Unknown GFR CALC 6809140 GFR NON-AA >60 ML/MIN 12/09/[address] [id number] WBC 8.7 10e9/L 12/09/[address] 7628048 RBC 4.78 10e12/L 12/09/[address] [place] [id number] HGB 13.2 g/dL 12/09/[address] 9323680 HCT DET 40.2 % 12/09/[address] [id number] MCV 84.1 fL 12/09/[address] 9091186 MCH 27.6 pg 12/09/[address] 8281517 MCHC 32.8 g/dL 12/09/[address] 7490994 PLT 374 10e9/L 12/09/[address] 6480435 MPV 11.0 fL 12/09/[address] 1054485 ROLAND % 70.2 % 12/09/[address] 7749348 RDW 14.4 % 12/09/[address] 1362458 LY % 22.4 % 12/09/[address] 2336154 RDW-SD 44.7 fL 12/09/[address] 4268364 MON % 6.2 % 12/09/[address] [id number] EOS % 1.0 % 12/09/[address] [id number] BASO % 0.2 % 12/09/[address] [id number] ABS ROLAND 6.08 10e9/L 12/09/[address] [id number] ABS LYMPH 1.94 10e9/L 12/09/[address] [id number] ABS MONO 0.54 10e9/L 12/09/[address] 7333201 ABS EOS 0.09 10e9/L 12/09/[address] 2154154 ABS BASO 0.02 10e9/L 12/09/2009 Unknown THYROID STIMULATING HORMONE 84455 TSH 1.916 uIU/ML 12/09/2009 Unknown COMPREHENSIVE METABOLIC 04273 AST 13 U/L 2009 Unknown COMPREHENSIVE METABOLIC 44604 ALT 13 IU/L 2009 Unknown COMPREHENSIVE METABOLIC 60156 BUN 18 MG/DL 2009 Unknown COMPREHENSIVE METABOLIC 76859 ALBUMIN 4.3 GM/DL 2009 Unknown COMPREHENSIVE METABOLIC 81723 CHLORIDE 106 MMOL/L 12/09 Unknown COMPREHENSIVE METABOLIC 74503 BILI TOT 0.5 MG/DL 2009 Unknown COMPREHENSIVE METABOLIC 93768 ALK PHOS 69 U/L 2009 Unknown COMPREHENSIVE METABOLIC 45088 SODIUM 137 MMOL/L 12/09 Unknown COMPREHENSIVE METABOLIC 64362 CREATININE 0.69 MG/DL 11/13 Unknown COMPREHENSIVE METABOLIC 55290 CALCIUM 9.1 MG/DL 2009 Unknown COMPREHENSIVE METABOLIC 11014 POTASSIUM 4.5 MMOL/L 12/09 Unknown COMPREHENSIVE METABOLIC 34547 PROT TOT 6.9 GM/DL 2009 Unknown COMPREHENSIVE METABOLIC 19319 Glucose 97 MG/DL 2009 Unknown COMPREHENSIVE METABOLIC 63103 BICARB 20 MMOL/L 2009 Unknown COMPREHENSIVE METABOLIC 78348 ANION GAP 11 MEQ/L 2009 Unknown Procedures Procedure Codes Date ROUTINE VENIPUNCTURE CPT-4: 38753 06/29/2018 ASSAY OF FREE THYROXINE CPT-4: 62840 06/29/2018 ASSAY THYROID STIM HORMONE CPT-4: 44841 06/29/2018 COMPREHEN METABOLIC PANEL CPT-4: 40503 06/29/2018 COMPLETE CBC W/AUTO DIFF WBC CPT-4: 35793 06/29/2018 LIPID PANEL CPT-4: 82908 06/29/2018 TDAP VACCINE 7 YRS/> IM CPT-4: 51997 06/11/2018 IMMUNIZATION ADMIN CPT-4: 68123 06/11/2018 ROUTINE VENIPUNCTURE CPT-4: 58603 04/05/2017 ASSAY THYROID STIM HORMONE CPT-4: 50710 04/05/2017 COMPREHEN METABOLIC PANEL CPT-4: 59334 04/05/2017 COMPLETE CBC W/AUTO DIFF WBC CPT-4: 26180 04/05/2017 LIPID PANEL CPT-4: 61844 04/05/2017 ASSAY OF BLOOD/URIC ACID CPT-4: 66777 04/05/2017 THER/PROPH/DIAG INJ SC/IM CPT-4: 14198 02/12/2016 TRIAMCINOLONE ACET INJ NOS CPT-4: J3301 02/12/2016 DEXAMETHASONE SODIUM PHOS CPT-4: J1100 02/12/2016 PRESCRIP TRANSMIT VIA ERX SY CPT-4: G8553 10/01/2015 URINALYSIS NONAUTO W/O SCOPE CPT-4: 58213 10/01/2015 URINE CULTURE/ COLONY COUNT CPT-4: 69950 10/01/2015 OCCULT BLOOD FECES CPT-4: 36183 08/04/2015 SPECIMEN HANDLING OFFICE-LAB CPT-4: 52750 08/04/2015 URINALYSIS NONAUTO W/O SCOPE CPT-4: 61810 05/27/2015 URINE CULTURE/ COLONY COUNT CPT-4: 24287 05/27/2015 THER/PROPH/DIAG INJ SC/IM CPT-4: 86513 03/10/2015 KETOROLAC TROMETHAMINE INJ CPT-4: J1885 03/10/2015 ROUTINE VENIPUNCTURE CPT-4: 14093 07/29/2014 ASSAY OF FREE THYROXINE CPT-4: 98467 07/29/2014 ASSAY THYROID STIM HORMONE CPT-4: 54997 07/29/2014 COMPREHEN METABOLIC PANEL CPT-4: 23798 07/29/2014 COMPLETE CBC W/AUTO DIFF WBC CPT-4: 38788 07/29/2014 LIPID PANEL CPT-4: 52676 07/29/2014 ASSAY OF IRON CPT-4: 43012 07/29/2014 ASSAY OF FERRITIN CPT-4: 35519 07/29/2014 VITAMIN B 12 FOLIC ACID CPT-4: 38537|35177 07/29/2014 URINALYSIS NONAUTO W/O SCOPE CPT-4: 75263 05/31/2013 URINE CULTURE/ COLONY COUNT CPT-4: 12261 05/31/2013 INFLUENZA ASSAY W/OPTIC CPT-4: 27176 05/27/2013 THER/PROPH/DIAG INJ SC/IM CPT-4: 93095 05/27/2013 METHYLPREDNISOLONE 40 MG INJ CPT-4: J1030 05/27/2013 TRIAMCINOLONE ACET INJ NOS CPT-4: J3301 05/27/2013 ROUTINE VENIPUNCTURE CPT-4: 82226 02/26/2013 ASSAY OF FREE THYROXINE CPT-4: 97090 02/26/2013 ASSAY THYROID STIM HORMONE CPT-4: 71914 02/26/2013 COMPREHEN METABOLIC PANEL CPT-4: 76978 02/26/2013 COMPLETE CBC W/AUTO DIFF WBC CPT-4: 71661 02/26/2013 LIPID PANEL CPT-4: 96617 02/26/2013 ROUTINE VENIPUNCTURE CPT-4: 54326 11/12/2012 COMPLETE CBC W/AUTO DIFF WBC CPT-4: 33411 11/12/2012 MYCOPLASMA ANTIBODY, IFA CPT-4: 38166Y1 11/12/2012 ROUTINE VENIPUNCTURE CPT-4: 27865 06/05/2012 ASSAY OF FREE THYROXINE CPT-4: 80707 06/05/2012 ASSAY THYROID STIM HORMONE CPT-4: 86588 06/05/2012 COMPREHEN METABOLIC PANEL CPT-4: 56420 06/05/2012 COMPLETE CBC W/AUTO DIFF WBC CPT-4: 61693 06/05/2012 LIPID PANEL CPT-4: 80543 06/05/2012 ANTINUCLEAR ANTIBODIES CPT-4: 22677 06/05/2012 RHEUMATOID FACTOR QUANT CPT-4: 78414 06/05/2012 ASSAY OF INSULIN CPT-4: 58479 06/05/2012 A1C GLYCOSYLATED HEMOGLOBIN TEST CPT-4: 37594 013 SPECIMEN HANDLING OFFICE-LAB CPT-4: 96073 12/21/2011 ROUTINE VENIPUNCTURE CPT-4: 97944 04/13/2011 ASSAY THYROID STIM HORMONE CPT-4: 14244 04/13/2011 METABOLIC PANEL TOTAL CA CPT-4: 15617 04/13/2011 FSH CPT-4: 7957517 04/13/2011 LH CPT-4: 67962 04/13/2011 ASSAY OF ESTRADIOL CPT-4: 56867 04/13/2011 URINALYSIS NONAUTO W/O SCOPE CPT-4: 81855 02/04/2011 URINE CULTURE/ COLONY COUNT CPT-4: 66737 02/04/2011 ROUTINE VENIPUNCTURE CPT-4: 41415 12/21/2010 ASSAY OF FREE THYROXINE CPT-4: 05884 12/21/2010 ASSAY THYROID STIM HORMONE CPT-4: 14199 12/21/2010 COMPLETE CBC W/AUTO DIFF WBC CPT-4: 24458 12/21/2010 COMPREHEN METABOLIC PANEL CPT-4: 61867 12/21/2010 LIPID PANEL CPT-4: 01589 12/21/2010 OCCULT BLOOD FECES CPT-4: 42666 12/06/2010 ROUTINE VENIPUNCTURE CPT-4: 50320 12/09/2009 CBC WITH MANUAL DIFFERENTIAL CPT-4: 15704|62542 12/09/2009 COMPREHEN METABOLIC PANEL CPT-4: 92110 12/09/2009 LIPID PANEL CPT-4: 77660 12/09/2009 ASSAY THYROID STIM HORMONE CPT-4: 25090 12/09/2009 SPECIMEN HANDLING OFFICE-LAB CPT-4: 08201 12/08/2009 THER/PROPH/DIAG INJ SC/IM CPT-4: 31919 09/01/2009 KETOROLAC TROMETHAMINE INJ CPT-4: J1885 09/01/2009 URINALYSIS NONAUTO W/O SCOPE CPT-4: 91962 08/26/2009 Vital Signs Date Vital 01/15/2019 Blood [...] 1: 106/68 Code: 8480-6 BMI: 36.2 Code: 33784-7 Heart Rate 1: 72 bpm Height: 5'2" Respiratory Rate: 20 bpm SpO2: 97% Tempera ture: 37.1 (C) / 98.8 (F) Weight: 198 lbs 04/05/2017 Blood Pressure 1: 114/78 Code: 8480-6 BMI: 35.5 Code: 26351-3 Heart Rate 1: 68 bpm Height: 5'2" Respiratory Rate: 20 bpm SpO2: 96% Tempera ture: 36.9 (C) / 98.5 (F) Weight: 194 lbs 02/12/2016 Blood Pressure 1: 126/78 Code: 8480-6 BMI: 31.8 Code: 07713-6 Heart Rate 1: 60 bpm Height: 5'2" Respiratory Rate: 24 bpm SpO2: 96% Tempera ture: 36.2 (C) / 97.1 (F) Weight: 174 lbs 01/25/2016 Blood Pressure 1: 128/78 Code: 8480-6 BMI: 31.6 Code: 34467-1 Heart Rate 1: 76 bpm Height: 5'2" Respiratory Rate: 20 bpm SpO2: 98% Tempera ture: 36.5 (C) / 97.7 (F) Weight: 173 lbs 10/01/2015 Blood Pressure 1: 108/58 Code: 8480-6 BMI: 32.9 Code: 14679-7 Heart Rate 1: 62 bpm Height: 5'2" Respiratory Rate: 20 bpm SpO2: 98% Tempera ture: 36.2 (C) / 97.1 (F) Weight: 180 lbs 08/04/2015 Blood Pressure 1: 126/78 Code: 8480-6 BMI: 33.8 Code: 13700-7 Heart Rate 1: 72 bpm Height: 5'2" Respiratory Rate: 20 bpm Temperature: 36 .9 (C) / 98.5 (F) Weight: 185 lbs 05/27/2015 Blood Pressure 1: 132/80 Code: 8480-6 BMI: 36.2 Code: 24876-4 Heart Rate 1: 56 bpm Height: 5'2" Respiratory Rate: 20 bpm Temperature: 37 .0 (C) / 98.6 (F) Weight: 198 lbs 03/10/2015 Blood Pressure 1: 136/82 Code: 8480-6 BMI: 36.2 Code: 68861-6 Heart Rate 1: 88 bpm Height: 5'2" Respiratory Rate: 20 bpm Temperature: 37 .0 (C) / 98.6 (F) Weight: 198 lbs 06/30/2014 Blood Pressure 1: 124/78 Code: 8480-6 BMI: 35.8 Code: 51566-3 Heart Rate 1: 84 bpm Height: 5'2" Respiratory Rate: 20 bpm Temperature: 36 .8 (C) / 98.2 (F) Weight: 196 lbs 08/12/2013 Blood Pressure 1: 114/72 Code: 8480-6 BMI: 35.8 Code: 27355-2 Heart Rate 1: 80 bpm Height: 5'2" [...] 1: 132/86 Code: 8480-6 BMI: 34.9 Code: 81795-5 Heart Rate 1: 72 bpm Height: 5'2" Respiratory Rate: 20 bpm Temperature: 36 .9 (C) / 98.4 (F) Weight: 191 lbs 11/29/2012 Blood Pressure 1: 126/82 Code: 8480-6 BMI: 34.4 Code: 29626-4 Heart Rate 1: 84 bpm Height: 5'2" Respiratory Rate: 20 bpm Temperature: 36 .7 (C) / 98.0 (F) Weight: 188 lbs 11/12/2012 Blood Pressure 1: 110/62 Code: 8480-6 BMI: 34.8 Code: 00848-4 Heart Rate 1: 64 bpm Height: 5'2" Temperature: 36.7 (C) / 98.1 (F) Weight: 190 lbs 07/30/2012 Blood Pressure 1: 124/82 Code: 8480-6 BMI: 36.0 Code: 27973-2 Heart Rate 1: 84 bpm Height: 5'2" Respiratory Rate: 20 bpm Temperature: 36 .5 (C) / 97.7 (F) Weight: 197 lbs 06/04/2012 Blood Pressure 1: 118/70 Code: 8480-6 BMI: 36.2 Code: 18780-0 Heart Rate 1: 64 bpm Height: 5'2" Temperature: 37.1 (C) / 98.7 (F) Weight: 198 lbs 12/21/2011 Blood Pressure 1: 132/80 Code: 8480-6 BMI: 33.3 Code: 32893-2 Heart Rate 1: 64 bpm Height: 5'2" Respiratory Rate: 20 bpm Temperature: 36 .6 (C) / 97.8 (F) Weight: 182 lbs 10/07/2011 Blood Pressure 1: 128/72 Code: 8480-6 BMI: 34.4 Code: 84280-7 Heart Rate 1: 80 bpm Height: 5'2" Respiratory Rate: 20 bpm Temperature: 36 .8 (C) / 98.2 (F) Weight: 188 lbs 09/05/2011 Blood Pressure 1: 106/72 Code: 8480-6 BMI: 33.3 Code: 78130-5 Heart Rate 1: 76 bpm Height: 5'2" Respiratory Rate: 20 bpm Temperature: 36 .6 (C) / 97.9 (F) Weight: 182 lbs 04/28/2011 Blood Pressure 1: 110/70 Code: 8480-6 BMI: 34.4 Code: 51034-1 Heart Rate 1: 60 bpm Height: 5'2" Temperature: 37.0 (C) / 98.6 (F) Weight: 188 lbs 04/13/2011 Blood Pressure 1: 106/84 Code: 8480-6 BMI: 34.4 Code: 55392-7 Heart Rate 1: 80 bpm Height: 5'2" Respiratory Rate: 20 bpm Temperature: 36 .6 (C) / 97.8 (F) Weight: 188 lbs 02/04/2011 Blood Pressure 1: 108/76 Code: 8480-6 BMI: 33.7 Code: 33024-7 Heart Rate 1: 74 bpm Height: 5'2" Weight: 184 lbs 12/06/2010 Blood Pressure 1: 120/72 Code: 8480-6 BMI: 33.3 Code: 75138-6 Heart Rate 1: 76 bpm Height: 5'2" [...] 1: 118/66 Code: 8480-6 BMI: 32.6 Code: 71235-1 Heart Rate 1: 68 bpm Height: 5'2" Temperature: 36.7 (C) / 98.1 (F) Weight: 178 lbs 09/01/2009 Blood Pressure 1: 118/76 Code: 8480-6 BMI: 34.6 Code: 55915-2 Heart Rate 1: 76 bpm Height: 5'2" Temperature: 36.5 (C) / 97.7 (F) Weight: 189 lbs Functional Status No Functional Status data Reason For Visit Reason For Visit Effective Dates Notes follow up 01/15/2019 sore throat 07/20/2018 lab draw 06/29/2018 well woman exam (40-65 years) 06/11/2018 Annual Wel lness Annual Checkup 04/05/2017 Wellness Physical, l ast normal mammogram 08-17-15, last colonoscopy was about 5 years ago [...] 02/06/10 sinusitis 02/03/2010 follow up 01/27/2010 from [place] [facility]-dx w ith UTI/migraine and given medications but hasn't filled anything yet headache 01/25/2010 shaking lab draw 12/09/2009 well woman exam (40-65 years) 12/08/2009 back pain 09/01/2009 low back pain Encounters Encounter Performer Location Codes Date () OFFICE/OUTPATIENT VISIT EST Diagnosis: Essential (primary) hypertension[ICD10: I10] Diagnosis: Encounter for therapeutic drug level monitoring[ICD10: Z51.81] Silvia NARANJO CPT-4: 06855 01/15/2019 ([id number]) OFFICE/OUTPATIENT VISIT EST Diagnosis: Acute bronchitis, unspecified[ICD10: J20.9] Diagnosis: Acute recurrent maxillary sinusitis[ICD10: J01.01] Nicol ANDERS [facility] CPT-4: 83896 07/20/2018 ([id number]) NURSE/OUTPATIENT VISIT EST Diagnosis: Encounter for general adult medical examination without abnormal findings[ICD10: Z00.00] Diagnosis: Mixed hyperlipidemia[ICD10: E78.2] Caren YOUNG Evelyn COBIAN [facility] CPT-4: 82986 06/29/2018 ([id number]) PREV VISIT EST AGE 40-64 Diagnosis: Encounter for general adult medical examination without abnormal findings[ICD10: Z00.00] Diagnosis: Encounter for screening mammogram for malignant neoplasm of breast[ICD10: Z12.31] Diagnosis: Essential (primary) hypertension[ICD10: I10] Diagnosis: Migraine with aura, not intractable, without status migrainosus[ICD10: G43.109] Diagnosis: VACCINE FOR TDAP[ICD10: Z23] Caren GARBERLINE Evelyn COBIAN [facility] CPT-4: 28477 06/11/2018 ([id number]) PREV VISIT EST AGE 40-64 Diagnosis: Encounter [...] Pain in unspecified joint[ICD10: M25.50] Caren CHAUDHARY Evelyn ANDERS [facility] CPT-4: 16096 04/05/2017 ([id number]) OFFICE/OUTPATIENT VISIT EST Diagnosis: Acute upper respiratory infection, unspecified[ICD10: J06.9] Diagnosis: Acute maxillary sinusitis, unspecified[ICD10: J01.00] Chiara ANDERS DO [facility] CPT-4: 03790 02/12/2016 ([id number]) OFFICE/OUTPATIENT VISIT EST Diagnosis: Acute upper respiratory infection, unspecified[ICD10: J06.9] Diagnosis: Acute maxillary sinusitis, unspecified[ICD10: J01.00] Chiara ANDERS DO [facility] CPT-4: 10400 01/25/2016 ([id number]) OFFICE/OUTPATIENT VISIT EST Diagnosis: Urinary tract infection, site not specified[ICD10: N39.0] Chiara ANDERS DO [facility] CPT-4: 25838 10/01/2015 ([id number]) PREV VISIT EST AGE 40-64 Diagnosis: Encounter for gynecological examination (general) (routine) without abnormal findings[ICD10: Z01.419] Diagnosis: Encounter for general adult medical examination without abnormal findings[ICD10: Z00.00] Diagnosis: Migraine, unspecified, not intractable, without status migrainosus[ICD10: G43.909] Diagnosis: Essential (primary) hypertension[ICD10: I10] Caren ANDERS [employer] [facility] CPT-4: 42171 08/04/2015 ([id number]) OFFICE/OUTPATIENT VISIT EST Diagnosis: Menopausal and female climacteric states[ICD10: N95.1] Diagnosis: Dysuria[ICD10: R30.0] Caren ANDERS [facility] [facility] CPT-4: 46458 05/27/2015 OFFICE/OUTPATIENT VISIT EST Diagnosis: Persistent 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90] Diagnosis: GERD[ICD9: 530.81] Caren Robertelviscara ACEVESCAREN MpRajni [facility] CPT-[facility]: 95643 06/30/2014 ([id number]) OFFICE/OUTPATIENT VISIT EST Diagnosis: ALLERGIC RHINITIS[ICD9: 477.9] Diagnosis: DERMATITIS NOS[ICD9: 692.9] Caren Robertdinh CHAUDHARY MpRajni ARANGO [facility] CPT-4: 43715 08/12/2013 OFFICE/OUTPATIENT VISIT EST Diagnosis: HEMATURIA NOS[ICD9: 599.70] Diagnosis: COUGH[ICD9: 786.2] Diagnosis: BRONCHITIS, ACUTE[ICD9: 466.0] Diagnosis: URINARY TRACT INFECTION[ICD9: 599.0] Lyndsey MichelleMartha ACEVESQUE MOSHE Rivas [facility] CPT-4: 54066 05/31/2013 OFFICE/OUTPATIENT VISIT EST Diagnosis: COUGH[ICD9: 786.2] Diagnosis: SINUSITIS, ACUTE[ICD9: 461.9] Diagnosis: FEBRILE ILLNESS[ICD9: 780.60] Lyndsey MichelleMartha CHAUDHARY MpRajni [facility] CPT-4: 19886 05/27/2013 ([id number]) OFFICE/OUTPATIENT VISIT EST Diagnosis: DERMATITIS NOS[ICD9: 692.9] Diagnosis: Tinea cruris[ICD9: 110.3] [facility] CPT-4: 80969 02/26/2013 OFFICE/OUTPATIENT VISIT EST Diagnosis: Rash[ICD9: 782.1] Anni [facility] T-[facility]: 91083 11/29/2012 OFFICE/OUTPATIENT VISIT EST Diagnosis: COUGH[ICD9: 786.2] Diagnosis: SINUSITIS, ACUTE[ICD9: 461.9] Diagnosis: PHARYNGITIS, ACUTE[ICD9: 462] Caren Rivas [facility] CPT-[facility]: 64147 11/12/2012 OFFICE/OUTPATIENT VISIT EST Diagnosis: COUGH[ICD9: 786.2] Diagnosis: SINUSITIS, ACUTE[ICD9: 461.9] Diagnosis: Myalgia[ICD9: 729.1] Caren ANDERS [facility] CPT-4: 69061 07/30/2012 ([id number]) OFFICE/OUTPATIENT VISIT EST Diagnosis: JOINT PAIN-UNSPEC[ICD9: 719.40] Diagnosis: Rash and nonspecific skin eruption[ICD9: 782.1] [facility]: 64002 06/05/2012 OFFICE/OUTPATIENT VISIT EST Diagnosis: Rash[ICD9: 782.1] Diagnosis: Joint pain[ICD9: 719.40] Caren [facility] CPT-4: 33405 06/04/2012 ([id number]) PREV VISIT EST AGE 40-64 Diagnosis: ROUTINE GYNE EXAM[ICD9: V72.31] Diagnosis: ROUTINE MEDICAL EXAM[ICD9: V70.0] Diagnosis: MIGRAINE NOS/NOT INTRCBL[ICD9: 346.90] [facility]: 43089 12/21/2011 OFFICE/OUTPATIENT VISIT EST Diagnosis: Hemorrhoid[ICD9: 455.6] Diagnosis: Constipation[ICD9: 564.00] Diagnosis: Rash[ICD9: 782.1] [facility] CPT[facility]: 60963 10/07/2011 OFFICE/OUTPATIENT VISIT EST Diagnosis: HYPERTENSION[ICD9: 401.9] Diagnosis: MIGRAINE NOS/NOT INTRCBL[ICD9: 346.90] Diagnosis: DIZZINESS/VERTIGO[ICD9: 780.4] Diagnosis: EUSTACHIAN TUBE DYSFUNCTION[ICD9: 381.81] Diagnosis: Plantar warts[ICD9: 078.12] Caren Clay [facility] CPT-4: 00385 09/05/2011 OFFICE/OUTPATIENT VISIT EST Diagnosis: SINUSITIS, ACUTE[ICD9: 461.9] Diagnosis: COUGH[ICD9: 786.2] Diagnosis: PHARYNGITIS, ACUTE[ICD9: 462] Diagnosis: DIARRHEA[ICD9: 787.91] Caren COBIANE R DO [facility] CPT-4: 05932 04/28/2011 OFFICE/OUTPATIENT VISIT EST Diagnosis: Finger pain[ICD9: 729.5] Diagnosis: Nasal pain[ICD9: 478.19] Diagnosis: MIGRAINE NOS/NOT INTRCBL[ICD9: 346.90] Diagnosis: Metrorrhagia[ICD9: 626.6] Caren CHAUDHARY SRajni ORE NDER DO [facility] CPT-4: 25444 04/13/2011 OFFICE/OUTPATIENT VISIT EST Diagnosis: Frequent urination[ICD9: 788.41] Caren CHAUDHARY SRajni ORENDER DO [facility] CPT-4: 59640 02/04/2011 PREV VISIT EST AGE 40-64 Anni Patel O [facility] CPT-4: 21229 12/06/2010 SPECIMEN HANDLING Anni CHAUDHARY S. ORENDER DO [facility] CPT-4: 46007 12/06/2010 ([id number]) OFFICE/OUTPATIENT VISIT, EST Caren [facility] CPT-4: 56180 04/14/2010 ([id number]) OFFICE/OUTPATIENT VISIT, EST Caren ACEVES [facility]INE [facility] CPT-4: 92038 02/16/2010 ([id number]) OFFICE/OUTPATIENT VISIT, EST Caren [facility] CPT-4: 99725 02/03/2010 ([id number]) OFFICE/OUTPATIENT VISIT, EST Caren [facility] CPT-4: 15426 01/27/2010 ([id number]) OFFICE/OUTPATIENT VISIT, EST Caren [facility] CPT-4: 17298 01/25/2010 ([id number]) PREV VISIT, EST, AGE 40-64 Anni [facility] CPT-4: 25170 12/08/2009 ([id number]) OFFICE/OUTPATIENT VISIT, EST Caren Chago ANDERS DO [facility] CPT-4: 00532 09/01/2009 Plan of Care Planned Activity Notes Codes Status Date Visit Diagnosis Plan: Essential (primary) hypertension Discussion: stable on current medications. rtc 6 months for annual or sooner if needed. will recheck labs at annual. ICD-9 : 401.9 ICD-10 : I10 01/15/2019 Appointment: Silvia Ramírez [address] FOLLOW UP 01/15/2019 Patient Education: High Blood [...] : J20.9 07/20/2018 Appointment: Nicol Arroyo [address] 07/20/2018 Patient Education: prednisone- [employer] Coupon [id number] Completed 07/20/2018 Patient Education: [facility] - Saving AutoInj - Ventolin HFA - 18-64 - Dynamic Portal ID Completed 07/20/2018 Patient Education: azithromycin- [employer] Coupon [id number] Completed 07/20/2018 Appointment: Caren Anders WPtel: [facility]0 [facility] LAB 06/29/2018 Visit Diagnosis Plan: Migraine with aura , [...] ICD-9 : V70.9 ICD-10 : Z00.00 06/11/2018 Visit Diagnosis Plan: Encounter for scre ening mammogram for malignant neoplasm of breast Discussion: Mammogram ordered ICD-9 : V76.12 ICD-10 : Z12.31 06/11/2018 Appointment: Caren Anders WPtel: [address] [place] [address] Annual Well Visit 06/11/2018 Patient Education: Valtrex- [employer] Coupon [id number] Completed 06/11/2018 Patient Education: mupirocin calcium- [employer] Coupon [id number] Completed 06/11/2018 Visit Diagnosis Plan: Persistent migrain e 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 cerebral infarction, intractable, with status migrainosus Discussion: Stable Follow Up: 6 months ICD-9 : 346.53 ICD-10 : G43.511 04/05/2017 Visit Diagnosis Plan: Encounter for gene ral adult medical examination without abnormal findings Discussion: Fating lab drawn Update colo noscopy ICD-9 : V70.9 ICD-10 : Z00.00 04/05/2017 Visit Diagnosis Plan: Essential (primary) hypertension Discussion: Stable ICD-9 : 401.9 ICD-10 : I10 04/05/2017 Visit Diagnosis Plan: Encounter for gyne cological examination (general) (routine) without abnormal findings Discussion: Pap done Mammogram ordered ICD-9 : V72.31 ICD-10 : Z01.419 04/05/2017 Appointment: Caren Anders WPtel: [address] [place] [address] Annual Well Visit 04/05/2017 Patient Education: Patient Medication Summary Completed 04/05/2017 Care Plan: Referral Order SNOMED-CT : 30 [id number] Pending 04/05/2017 Patient Education: Patient Medication Summary Completed 08/02/2016 Care Plan: MAMMOGRAM SCREENING LOINC : 2 6347-5 Pending 08/02/2016 Visit Plan: Injection as above Rx for le vaquin - pt reports she tolerates well Continue supportive care Follow up PRN 02/12/2016 Appointment: Chiara Phelan [address] 02/10 confirmed~sl ACUTE ILLNESS 02/12/2016 Patient Education: Patient Medication Summary Completed 02/12/2016 Visit Plan: Rxs as above OTC meds review ed - avoid decongestants Rest, fluids, vicks, humidifier, etc Follow up PRN 01/25/2016 [facility] [facility] 01/25/2016 Patient Education: Patient Medication Summary Completed 01/25/2016 Visit Plan: Office dip abnormal Culture pending Rx as above Supportive care reviewed Follow up PRN 10/01/2015 Appointment: Chiara Phelan 2[address] [facility] ACUTE ILLNESS 10/01/2015 Patient Education: Patient Medication Summary Completed 10/01/2015 Visit Plan: Obtain lab results Pap done Mammogram ordered Patient awaiting on Dr. Cuello to restart botox for migraines 08/04/2015 Appointment: Caren Anders WPtel: [address] [place] [address] 08/02confirmed-sp Annual Well Visit 08/04/2015 Patient Education: Patient Medication Summary Completed 08/04/2015 Care Plan: MAMMOGRAM SCREENING LOINC : 2 6347-5 Ordered 08/04/2015 Patient Education: Patient Medication Summary Completed 07/29/2015 Care Plan: CBC Ordered 07/29/2015 Visit Plan: Discussed likely perimenopau se Will observe through July and then at [facility] with fasting lab including hormone levels If bleeding returns will proceed with pelvic US Check into chiropractor for manipulation for right low back/hip pain 05/27/2015 Appointment: Caren Anders WPtel: [address] [place], [place] [phone] 05/26/15 vm cn 05/26/15 appt confirmed cn ACUTE ILLNESS 05/27/2015 Patient Education: Patient Medication Summary Completed 05/27/2015 Referral: Ignacio Esposito WPtel: [facility] [address] [id number] [place] Referral Initiated 04/07/2015 Referral: Caren Anders WPtel: [address] [place], [place] [phone] 03/26/15 Arrival time 9:30 am Procedure 9:45 am. @ [facility] [address] [place] [address] Come sleep deprived(4 hours or less) clean hair, no product in hair, no caffeen Initiated 03/26/2015 Visit Plan: Toradol now with compazine p o when gets home Proceed with updated EEG/neurology evaluation--discussed may need to go on antiseizure meds and drop out of migraine study No driving for 6mos Discussed with Dr. Cuello at [facility] in [place]--he wants to see her in next 1-2weeks 03/10/2015 Appointment: Caren Anders WPtel: [address] [place] [address] ACUTE ILLNESS 03/10/2015 Patient Education: Patient Medication Summary Completed 03/10/2015 Appointment: Caren Anders WPtel: [address] [place] [address] 07/29/2014 Patient Education: Patient Medication Summary Completed 07/29/2014 Appointment: Caren Anders WPtel: [address] [place] [address] Annual Well Visit 06/30/2014 Patient Education: Patient Medication Summary Completed 06/30/2014 Appointment: Caren Anders WPtel: [address] [place] [address] Annual Well Visit 06/18/2014 Appointment: Caren nAders WPtel: [address] [place] [address] ACUTE ILLNESS 06/03/2014 Appointment: Lyndsey Thorpe WPtel: [address] [place], [place] [phone] 02/05 ACUTE ILLNESS 02/06/2014 Visit Plan: Benadryl 25mg q HS Claritin 10mg q AM Prednisone for 1week Call in 1week on cough and rash 08/12/2013 Appointment: Caren Anders WPtel: [address] [place], [place] [phone] 08/09 FOLLOW UP 08/12/2013 Patient Education: Patient Medication Summary Completed 08/12/2013 Appointment: IlaNevillesa De Los Santos WPtel: [address] [place], [place] [phone] ACUTE ILLNESS 05/31/2013 Patient Education: Patient Medication Summary Completed 05/31/2013 Appointment: IlaNevillesa De Los Santos WPtel: [address] [place], [place] [phone] ACUTE ILLNESS 05/27/2013 Patient Education: Patient Medication Summary Completed 05/27/2013 Appointment: Caren Anders WPtel: [address] [place], [place] [phone] 02/25 ACUTE ILLNESS 02/26/2013 Patient Education: Patient [...] Mycoplasma infection) 11/29/2012 Appointment: Anni Brennan WPtel: [address] [place], [place] [phone] FOLLOW UP 11/29/2012 Patient Education: Patient Medication Summary Completed 11/29/2012 Appointment: Anni Brennan WPtel: [address] [place], [place] [phone] ACUTE ILLNESS 11/12/2012 Patient Education: Patient Medication Summary Completed 11/12/2012 Visit Plan: Azithromyacin and medrol dos e pack. Will focus on hydration and rest. Pt. will notify if symptoms worsen or do not improve. 07/30/2012 Appointment: Anni Brennan WPtel: [address] [place], [place] [phone] ACUTE ILLNESS 07/30/2012 Patient Education: Patient Medication Summary Completed 07/30/2012 Appointment: Caren Anders WPtel: [address] [place], [place] [phone] LAB 06/05/2012 Patient Education: Patient Medication Summary Completed 06/05/2012 Visit Plan: fsating lab: CBC, CMP, TSH, Free T4 and Lipid with FERDINAND and RA. Nystatin to rash. Written RX for Medrol dose pack. Discussed that pt. will notify if no improvement with topical Nystatin. Pt. will use Benadryl at bedtime and cool pack to help refrain from scratching. 06/04/2012 Appointment: Anni Brennan WPtel: [address] [place] [address] ACUTE ILLNESS 06/04/2012 Patient Education: Patient Medication Summary Completed 06/04/2012 Visit Plan: Pap done Mammo ordered Pt wong s started botox for Migraines--next shots end of this month Fasting lab in 12/21/2011 Appointment: Caren Anders WPtel: [address] [place] [address] PAP 12/21/2011 Patient Education: Patient Medication Summary Completed 12/21/2011 Visit Plan: Encouraged fluids and contin ued use of stool softener. Pt. reports long standing concerns with constipation. Discussed that will likely proceed with colonoscopy. Referral to Dr. Long. Will apply betamethasone to rash and use rectal foam and topical dibucaine. 10/07/2011 Appointment: Anni Brennan WPtel: [address] [place], [place] [phone] ACUTE ILLNESS 10/07/2011 Patient Education: Patient Medication Summary Completed 10/07/2011 Visit Plan: Lisinopril 1/2 in AM and Ate nolol 1/2 pm for 5 days then stop lisinopril and increase atenolol to 25mg q PM Check 2-D Echo Long discusssion about Botox and clinical trial Start omnaris q HS Pt will try otc wart remover for feet for now 09/05/2011 Appointment: Caren Anders WPtel: [address] [place], [place] [phone] FOLLOW UP 09/05/2011 Patient Education: Patient Medication Summary Completed 09/05/2011 Visit Plan: imodium. Discussed the impor tance of hydration. Phoned Cefuroxime and codeine/guiaf into [facility]. Pt. will notify if symptoms worsen. 04/28/2011 Appointment: Anni Brennan WPtel: [address] [place] [address] ACUTE ILLNESS 04/28/2011 Patient Education: Patient Medication Summary Completed 04/28/2011 Visit Plan: Use Aleve BID Observe nose a nd finger Check Chem 7, estradiol, FSH, LH, TSH 04/13/2011 Appointment: Caren Anders WPtel: [address] [place], [place] [phone] ACUTE ILLNESS 04/13/2011 Patient Education: Patient Medication Summary Completed 04/13/2011 Appointment: Anni Brennan WPtel: [address] [place] [address] ACUTE ILLNESS 02/04/2011 Patient Education: Patient Medication Summary Completed 02/04/2011 Appointment: Caren Anders WPtel: [address] [place], [place] [phone] LAB 12/21/2010 Patient Education: Patient Medication Summary Completed 12/21/2010 Appointment: Anni Brennan WPtel: [address] [place], [place] [phone] PAP 12/06/2010 Patient Education: Patient Medication Summary [...] colon cancer 04/14/2010 Appointment: Caren Anders WPtel: [address] [place], [place] [phone] FOLLOW UP 04/14/2010 Patient Education: Patient Medication Summary Completed 04/14/2010 Appointment: Caren Anders WPtel: [address] [place], [place] [phone] LAB 03/17/2010 Visit Plan: Increase Topamax to 50mg BID Cont Flexeril See Neurology next week 02/16/2010 Appointment: Caren Anders WPtel: [address] [place] [address] FOLLOW UP 02/16/2010 Patient Education: Patient Medication Summary Completed 02/16/2010 Visit Plan: Pt will seek re-eval if symp toms worsen. 02/03/2010 Appointment: Anni Brennan WPtel: [address] [place] [address] ACUTE ILLNESS 02/03/2010 Patient Education: Patient Medication Summary Completed 02/03/2010 Visit Plan: Start Topamax for prophylaxi s See Neurology Discussed triggers such as chocolate Start Cipro as ordered May try Midrin and Compazine as ordered Off work rest of week 01/27/2010 Appointment: Caren Anders WPtel: [address] [place] [address] ER Follow UP 01/27/2010 Patient Education: Patient Medication Summary Completed 01/27/2010 Visit Plan: Check CT head Suspect comple x migraine vs TIA--esequiel await CT results 01/25/2010 Appointment: Caren Anders WPtel: [address] [place] [address] ACUTE ILLNESS 01/25/2010 Patient Education: Patient Medication Summary Completed 01/25/2010 Appointment: Caren Anders WPtel: [address] [place] [address] LAB 12/09/2009 Patient Education: Patient Medication Summary Completed 12/09/2009 Appointment: Anni Brennan WPtel: [address] [place] [address] 12/08/2009 Patient Education: Patient Medication Summary Completed 12/08/2009 Appointment: Caren Anders WPtel: [address] [place] [address] ACUTE ILLNESS 09/01/2009 Patient Education: Patient Medication Summary Completed 09/01/2009 Appointment: Caren Anders WPtel: [address] [id number] [place] LAB 08/26/2009 Patient Education: Patient Medication Summary Completed 08/26/2009 Referral: Partah Long WPtel: [address] [id number] [place] Referral sent. Dr. Coburn's office will call [...] Will observe through July and then at [facility] with fasting lab including hormone levels If bleeding returns will proceed with pelvic US Check into chiropractor for manipulation for right low back/hip pain . Toradol now with compazine po when get s home Proceed with updated EEG/neurology evaluation--discussed may need to go on antiseizure meds and drop out of migraine study No driving for 6mos Discuss[address] Dr[address] Cuello at clinic in [place]--he wants to see her in next 1-2weeks [...] of hydration. Phoned Cefuroxime and codeine/guiaf into [facility]. Pt. will notify if symptoms worsen. [...]
--- OUTSIDE RECORDS SUMMARY | 2019-10-11 18:31 | XMS REPORT | CCD ---
Author Author Claudia Anders D.O. 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 Name Role Phone Caren Anders D.O., PP Unavailable CCM Unavailable Summary Purpose Interface Exchange Insurance Providers Payer name Policy type / Coverage type Covered democrat ID Effective Begin Date Effective End Date Blue Cross Blue Shield Blue Cross/Blue Shield [id number] Unknown Family history Father Diagnosis Age At Onset Congestive heart failure Unknown Cancer Unknown Diabetes mellitus Type 2 Unknown Social History Social History Element Codes Description Effective Dates Tobacco history SNOMED CT: 1751460 Former smoker 02/03/2015 Allergies, Adverse Reactions, Alerts [...] Fill Instructions tizanidine 4 mg tablet RxNorm: 994582 TAKE ONE TABLET B Y MOUTH EVERY 8 HOURS NEEDED FOR MUSCLE SPASMS 06/18/2019 No Stop Date Active atenolol 25 mg tablet RxNorm: 939804 TAKE ONE TABLET BY MOUTH DAILY 06/18/2019 No Stop Date Active Naprosyn 500 mg tablet RxNorm: 390301 TAKE ONE TABLET BY MOUTH TWO TIMES A DAY 05/16/2019 No Stop Date Active atenolol 25 mg tablet RxNorm: 167970 Tablet(s) Oral PATEL E ONE TABLET BY MOUTH DAILY, 02/04/2019 06/03/2019 Inactive Maxalt 10 mg tablet RxNorm: 298546 TAKE ONE TABLET BY M OUTH AT HEADACHE ONSET. MAY REPEAT IN 2 HOURS IF HEADACHE REMAINS. MAX OF 2 TABLETS IN 24 HOURS 01/17/2019 02/12/2019 Inactive Zantac 300 mg tablet RxNorm: 060238 TAKE ONE TABLET BY MOUTH EVERY NIGHT AT BEDTIME 01/15/2019 03/15/2019 Inactive atenolol 25 mg tablet RxNorm: 349014 Tablet(s) TAKE ONE TABLET BY MOUTH DAILY, NEEDS APPT. BEFORE FURTHER REFILLS 01/08/2019 02/03/2019 Inactive atenolol 25 mg tablet RxNorm: 951573 Tablet(s) TAKE ONE TABLET BY MOUTH DAILY, NEEDS APPT. BEFORE FURTHER REFILLS 12/31/2018 02/04/2019 Inactive atenolol 25 mg tablet RxNorm: 196434 TAKE ONE TABLET BY MOUTH DAILY, NEEDS APPT. BEFORE FURTHER REFILLS 12/14/2018 12/31/2018 Inactive tizanidine 4 mg tablet RxNorm: 519508 TAKE ONE TABLET B Y MOUTH EVERY 8 HOURS NEEDED FOR MUSCLE SPASMS 11/16/2018 12/25/2018 Inactive Naprosyn 500 mg tablet RxNorm: 010381 1 Tablet(s) PO BID 10/01/2018 0 05/15/2019 Inactive atenolol 25 mg tablet RxNorm: 237959 Tablet(s) TAKE ONE TABLET BY MOUTH DAILY. 10/01/2018 12/13/2018 Inactive Maxalt 10 mg tablet RxNorm: 024179 1 Tablet(s) PO at he adache onset. May repeat in 2 hours if headache remains. Max of 2/24hr 10/01/2018 11/29/2018 In active atenolol 25 mg tablet RxNorm: 256672 TAKE ONE TABLET BY MOUTH DAILY. NEED APPOINTMENT BEFORE FURTHER REFILLS. 09/24/2018 09/30/2018 Inactive atenolol 25 mg tablet RxNorm: 831072 TAKE ONE TABLET BY MOUTH DAILY, NEEDS APPT. BEFORE FURTHER REFILLS 09/11/2018 09/23/2018 Inactive Naprosyn 500 mg tablet RxNorm: 337835 1 Tablet(s) PO BI D Due for annual labs and appointment 09/11/2018 09/30/2018 Inactive atenolol 25 mg tablet RxNorm: 086727 TAKE ONE TABLET BY MOUTH DAILY, NEEDS APPT. BEFORE FURTHER REFILLS 08/29/2018 09/10/2018 Inactive doxycycline hyclate 100 mg tablet RxNorm: 6837849 1 Tablet(s) PO BI D 07/27/2018 08/05/2018 Inactive doxycycline hyclate 100 mg tablet RxNorm: 7196364 1 Tablet(s) PO BI D 07/27/2018 07/26/2018 Inactive Ventolin HFA 90 mcg/actuation aerosol inhaler RxNorm: 8937176 2 Puff(s) INH Q6H 07/20/2018 08/18/2018 Inactive prednisone 20 mg tablet RxNorm: 849574 take 2 tabs for 3 days, then 1 tab for 3 days 07/20/2018 07/25/2018 Inactive azithromycin 250 mg tablet RxNorm: 971666 Take 2 tabs t cate and one tab days 2-5 07/20/2018 07/25/2018 Inactive z-pack atenolol 25 mg tablet RxNorm: 219991 TAKE ONE TABLET BY MOUTH DAILY, NEEDS APPT. BEFORE FURTHER REFILLS 07/13/2018 08/26/2018 Inactive mupirocin 2 % topical cream RxNorm: 775008 Application TOP BID 05/1601/14/2019 Inactive Valtrex 1 gram tablet RxNorm: 265311 1 Tablet(s) PO BID 06/11/2018 Inactive atenolol 25 mg tablet RxNorm: 845507 1 Tablet(s) PO QD NEEDS APPOINTMENT BEFORE FURTHER REFILLS 05/14/2018 07/12/2018 Inactive Naprosyn 500 mg tablet RxNorm: 420918 1 Tablet(s) PO BI D Due for annual labs and appointment 04/12/2018 05/11/2018 Inactive Zantac 300 mg tablet RxNorm: 825630 TAKE ONE TABLET BY MOUTH EVERY NIGHT AT BEDTIME 04/09/2018 07/07/2018 Inactive tizanidine 4 mg tablet RxNorm: 229754 TAKE ONE TABLET B Y MOUTH EVERY 8 HOURS NEEDED FOR MUSCLE SPASMS 02/20/2018 04/20/2018 Inactive Maxalt 10 mg tablet RxNorm: 774854 Tablet(s) TAKE ONE T ABLET BY MOUTH NEEDED FOR HEADACHE 01/09/2018 03/09/2018 Inactive Naprosyn 500 mg tablet RxNorm: 391559 Tablet(s) TAKE ON E TABLET BY MOUTH TWICE A DAY 01/08/2018 04/12/2018 Inactive atenolol 25 mg tablet RxNorm: 600141 1 Tablet(s) PO QD 01/08/2018 Inactive Naprosyn 500 mg tablet RxNorm: 964700 TAKE ONE TABLET BY MOUTH TWICE A DAY 12/10/2017 01/08/2018 Inactive tizanidine 4 mg tablet RxNorm: 506498 1 Tablet(s) PO Q8 H as needed for muscle spasm 11/27/2017 11/26/2017 Inactive Maxalt 10 mg tablet RxNorm: 951968 TAKE ONE TABLET BY M OUTH NEEDED FOR HEADACHE 11/13/2017 01/09/2018 Inactive Naprosyn 500 mg tablet RxNorm: 541170 TAKE ONE TABLET BY MOUTH TWICE A DAY 11/13/2017 12/09/2017 Inactive atenolol 25 mg tablet RxNorm: 897249 1 Tablet(s) PO QD 09/06/2017 Inactive Naprosyn 500 mg tablet RxNorm: 153106 1 Tablet(s) PO BID 09/04/2017 0 11/02/2017 Inactive Maxalt 10 mg tablet RxNorm: 791248 1 Tablet(s) PO as needed for headache 08/07/2017 11/12/2017 Inactive Naprosyn 500 mg tablet RxNorm: 503060 1 Tablet(s) PO BID 07/07/2017 0 09/04/2017 Inactive Naprosyn 500 mg tablet RxNorm: 871934 1 Tablet(s) PO BI D TAKE ONE TABLET BY MOUTH TWICE A DAY 06/08/2017 07/07/2017 Inactive tizanidine 4 mg tablet RxNorm: 225344 1 Tablet(s) PO Q8 H as needed for muscle spasm 05/10/2017 11/27/2017 Inactive atenolol 25 mg tablet RxNorm: 375680 1 Tablet(s) PO QD 05/10/2017 Inactive Maxalt 10 mg tablet RxNorm: 170193 1 Tablet(s) PO as needed for headache 05/10/2017 08/06/2017 Inactive atenolol 25 mg tablet RxNorm: 033557 1 Tablet(s) PO QD LAST REFILL---NEEDS UPDATED LAB AND APPOINTMENT 04/04/2017 05/03/2017 Inactive Zantac 300 mg tablet RxNorm: 498323 Tablet(s) TAKE ONE TABLET BY MOUTH EVERY NIGHT AT BEDTIME 04/03/2017 07/31/2017 Inactive atenolol 25 mg tablet RxNorm: 541629 1 Tablet(s) PO QD LAST REFILL---NEEDS UPDATED LAB AND APPOINTMENT 03/02/2017 04/04/2017 Inactive atenolol 25 mg tablet RxNorm: 880715 1 Tablet(s) PO QD LAST REFILL---NEEDS UPDATED LAB AND APPOINTMENT 02/01/2017 05/10/2017 Inactive Naprosyn 500 mg tablet RxNorm: 594271 1 Tablet(s) PO BI D TAKE ONE TABLET BY MOUTH TWICE A DAY 01/02/2017 06/08/2017 Inactive atenolol 25 mg tablet RxNorm: 270861 1 Tablet(s) PO QD Need Labs and appointment 12/26/2016 02/01/2017 Inactive Naprosyn 500 mg tablet RxNorm: 950805 1 Tablet(s) PO BI D TAKE ONE TABLET BY MOUTH TWICE A DAY 12/05/2016 01/02/2017 Inactive Naprosyn 500 mg tablet RxNorm: 015768 Tablet(s) TAKE ON E TABLET BY MOUTH TWICE A DAY 11/07/2016 12/05/2016 Inactive Naprosyn 500 mg tablet RxNorm: 570321 Tablet(s) TAKE ON E TABLET BY MOUTH TWICE A DAY 10/06/2016 11/07/2016 Inactive Naprosyn 500 mg tablet RxNorm: 971322 TAKE ONE TABLET BY MOUTH TWICE A DAY 09/04/2016 10/03/2016 Inactive Naprosyn 500 mg tablet RxNorm: 054933 TAKE ONE TABLET BY MOUTH TWICE A DAY 07/01/2016 08/29/2016 Inactive Naprosyn 500 mg tablet RxNorm: 706651 TAKE ONE TABLET BY MOUTH TWICE A DAY 04/27/2016 06/25/2016 Inactive Zantac 300 mg tablet RxNorm: 432203 TAKE ONE TABLET BY MOUTH EVERY NIGHT AT BEDTIME 03/09/2016 04/03/2017 Inactive Levaquin 500 mg tablet RxNorm: 804596 1 Tablet(s) PO QD 02/12/2016 Inactive azithromycin 250 mg tablet RxNorm: 452822 2 Tablet(s) P O on day one then 1 tab on days 2-5 01/25/2016 01/24/2016 Inactive Medrol (Camilo) 4 mg tablets in a dose pack RxNorm: 009480 Take as directed 01/25/2016 04/04/2017 Inactive Naprosyn 500 mg tablet RxNorm: 937318 1 Tablet(s) PO BID 01/15/2016 1 06/13/2015 Inactive Brisdelle 7.5 mg capsule RxNorm: 6863711 1 Capsule(s) PO QHS 201504/04/2017 Inactive atenolol 25 mg tablet RxNorm: 227956 TAKE ONE TABLET BY MOUTH DAILY 12/04/2015 12/26/2016 Inactive Maxalt 10 mg tablet RxNorm: 130887 1 Tablet(s) PO as needed for headache 10/05/2015 05/09/2017 Inactive Bactrim DS 800 mg-160 mg tablet RxNorm: 204819 1 Tablet(s) PO BID 0 10/01/2015 10/07/2015 Inactive Zantac 300 mg tablet RxNorm: 438415 Tablet(s) TAKE ONE TABLET BY MOUTH EVERY NIGHT AT BEDTIME 10/01/2015 11/29/2015 Inactive atenolol 25 mg tablet RxNorm: 065178 TAKE ONE TABLET BY MOUTH DAILY 06/09/2015 08/07/2015 Inactive Naprosyn 500 mg tablet RxNorm: 288386 TAKE ONE TABLET BY MOUTH TWICE A DAY 05/29/2015 01/15/2016 Inactive Zantac 300 mg tablet RxNorm: 745625 Tablet(s) TAKE ONE TABLET BY MOUTH EVERY NIGHT AT BEDTIME 03/30/2015 10/01/2015 Inactive Compazine 10 mg tablet RxNorm: 441688 1 Tablet(s) PO TID as nee ded for nausea 03/10/2015 05/26/2015 Inactive Prevacid 30 mg capsule,delayed release RxNorm: 149795 C apsule(s) TAKE ONE CAPSULE BY MOUTH ONCE A DAY 12/19/2014 05/17/2015 Inactive Naprosyn 500 mg tablet RxNorm: 966704 1 Tablet(s) PO BID 12/02/2014 1 Inactive Zantac 300 mg tablet RxNorm: 111070 TAKE ONE TABLET BY MOUTH EVERY NIGHT AT BEDTIME 09/18/2014 03/30/2015 Inactive Naprosyn 500 mg tablet RxNorm: 392455 1 Tablet(s) PO BID 09/04/2014 0 12/02/2014 Inactive atenolol 25 mg tablet RxNorm: 278154 1 Tablet(s) PO QD 07/17/2014 Inactive Zantac 300 mg tablet RxNorm: 727752 1 Tablet(s) PO QHS 06/30/201410/2014 Inactive Lamisil 250 mg tablet RxNorm: 149786 1 Tablet(s) PO QD 06/30/2014 Inactive Treximet 85 mg-500 mg tablet RxNorm: 650107 Tablet(s) PO PRN as needed 06/30/2014 03/09/2015 Inactive Prevacid 30 mg capsule,delayed release RxNorm: 840232 T VI ONE CAPSULE BY MOUTH ONCE A DAY 06/16/2014 12/19/2014 Inactive Treximet 85 mg-500 mg tablet RxNorm: 457935 Tablet(s) PO PRN as needed 06/06/2014 06/29/2014 Inactive Pepcid 20 mg tablet RxNorm: 733676 1 Tablet(s) PO QHS 03/19/201406/15 Inactive [SAVINGS FOR UNINSURED PATIENTS -- BIN:0 [id number], PCN: [id number], Group: [id number], ID# [id number], Process claim through [employer], for questions: . THIS IS NOT INSURANCE.] atenolol 25 mg tablet RxNorm: 494232 1 Tablet(s) PO QD 01/15/201409/2014 Inactive Pepcid 20 mg tablet RxNorm: 481346 1 Tablet(s) PO QHS 12/23/201312/13 Inactive Pepcid 20 mg tablet RxNorm: 573372 1 Tablet(s) PO QHS 12/23/201309/2013 Inactive [SAVINGS FOR UNINSURED PATIENTS -- BIN:0 52392, PCN: [id number], Group: [id number], ID# [id number], Process claim through [employer], for questions: . THIS IS NOT INSURANCE.] Prevacid 30 mg capsule,delayed release RxNorm: 433611 1 Capsule (s) PO QD 12/23/2013 06/15/2014 Inactive [SAVINGS FOR UNINSUR ED PATIENTS -- BIN:039558, PCN: [id number], Group: [id number], ID# [id number], Process claim through [employer], for questions: . THIS IS NOT INSURANCE.] loratadine 10 mg tablet RxNorm: 108314 TAKE ONE TABLET BY MOUTH EVERY MORNING 09/09/2013 04/06/2014 Inactive nystatin-triamcinolone 100,000 unit/g-0.1 % topical cream Rx Norm: 8608679 1 Application TOP QHS to rash 08/22/2013 06/29/2014 Inactive prednisone 20 mg tablet RxNorm: 216141 1 Tablet(s) PO BID 08/12/2013 08/18/2013 Inactive loratadine 10 mg tablet RxNorm: 653536 1 Tablet(s) PO QAM 08/12/2013 09/08/2013 Inactive Treximet 85 mg-500 mg tablet RxNorm: 968938 Tablet(s) PO PRN 201307/21/2013 Inactive atenolol 25 mg tablet RxNorm: 781928 1 Tablet(s) PO QD 07/22/201307/2013 Inactive Prevacid 30 mg capsule,delayed release RxNorm: 209103 1 Capsule (s) PO BID 07/22/2013 12/22/2013 Inactive nitrofurantoin macrocrystal 100 mg capsule RxNorm: 848350 1 Cap violeta(s) PO BID 05/31/2013 06/06/2013 Inactive albuterol sulfate HFA 90 mcg/actuation aerosol inhaler RxNor m: 297046 2 Puff(s) INH QID 05/31/2013 06/13/2013 Inactive azithromycin 250 mg tablet RxNorm: 326531 2 Tablet(s) PO QD 014 06/02/2013 Inactive Prevacid 30 mg capsule,delayed release RxNorm: 656309 1 Capsule (s) PO BID 03/20/2013 07/21/2013 Inactive Lamisil 250 mg tablet RxNorm: 120031 1 Tablet(s) PO QD 02/26/201304/2014 Inactive betamethasone valerate 0.1 % Topical Cream RxNorm: 092799 1 Tom lication TOP BID 11/29/2012 12/12/2012 Inactive Diflucan 100 mg tablet RxNorm: 209203 1 Tablet(s) PO QD 11/29/2012 Inactive nystatin 100,000 unit/gram Topical Powder RxNorm: 429729 1 Gram(s) TOP BID apply to affected areas twice daily 11/29/2012 12/08/2012 Inactive Medrol (Camilo) 4 mg tablets in a dose pack RxNorm: 009926 Tablet(s) PO as directed 11/12/2012 02/25/2013 Inactive Levaquin 750 mg tablet RxNorm: 353913 1 Tablet(s) PO QD antibiotic 11/12/2012 11/21/2012 Inactive Prevacid 30 mg capsule,delayed release RxNorm: 731122 1 Capsule (s) PO BID 09/17/2012 03/15/2013 Inactive azithromycin 250 mg tablet RxNorm: 180972 2 Tablet(s) PO QD 013 08/06/2012 Inactive nystatin 100,000 unit/g Ointment RxNorm: 878689 1 Gram( s) TOP BID apply to affected area twice daily 06/21/2012 06/30/2012 Inactive nystatin 100,000 unit/g Ointment RxNorm: 199821 1 Gram( s) TOP BID apply to affected area twice daily 06/04/2012 06/13/2012 Inactive Prevacid 30 mg capsule,delayed release RxNorm: 002612 1 Capsule (s) PO BID 03/01/2012 08/27/2012 Inactive Omnaris 50 mcg Nasal [place] RxNorm: 701194 2 [place] NASAL QD each nostril 12/21/2011 03/09/2015 Inactive betamethasone valerate 0.1 % Topical Cream RxNorm: 085012 1 Tom lication TOP BID 10/07/2011 10/20/2011 Inactive dibucaine 1 % Rectal Ointment RxNorm: 865856 1 RTL TID 10/07/2011 Inactive Proctofoam 1 % Topical Foam RxNorm: 447352 1 TOP BID 10/07/201107/2011 Inactive Treximet 85 mg-500 mg Tab RxNorm: 003729 Tablet(s) PO T vi 1 at headache onset and may repeat 1 in two hours if needed 09/05/2011 No Stop Date Active Prevacid 30 mg capsule,delayed release RxNorm: 356961 1 Capsule (s) PO BID 08/30/2011 02/25/2012 Inactive Flexeril 5 mg tablet RxNorm: 501422 1-2 Tablet(s) PO QHS 08/05/2011 0 06/29/2014 Inactive prn spasm cefuroxime axetil 500 mg Tab RxNorm: 991771 1 Tablet(s) PO BID 04/1405/07/2011 Inactive Flexeril 5 mg Tab RxNorm: 301114 1-2 Tablet(s) PO QHS 04/20/201107/14 Inactive prn spasm Prevacid 30 mg Capsule, delayed release RxNorm: 748589 1 Capsul e(s) PO BID 02/23/2011 08/30/2011 Inactive Prevacid 30 mg Cap RxNorm: 834173 1 Capsule(s) PO QD 02/21/201102/22 Inactive Pyridium 100 mg Tab RxNorm: 5526753 1 Tablet(s) PO TID 02/04/2011 Inactive will turn urine orange/red. Septra DS 800 mg-160 mg Tab RxNorm: 612808 1 Tablet(s) PO BID 02/0402/08/2011 Inactive lisinopril 10 mg Tab RxNorm: 754451 1 Tablet(s) PO QD 12/06/201012/14 Inactive amitriptyline 10 mg Tab RxNorm: 187590 2 Tablet(s) PO QD 12/06/2010 0 01/04/2011 Inactive Treximet 85 mg-500 mg Tab RxNorm: 363705 1 Tablet(s) PO 12/02/2010 Inactive at WONG onset, may repeat i po in 2hrs if WONG remains lisinopril 20 mg Tab RxNorm: 987073 1 Tablet(s) PO QD 09/10/201011/13 Inactive Prevacid 30 mg Cap RxNorm: 500693 1 Capsule(s) PO BID 08/09/201002/12 Inactive Flexeril 5 mg Tab RxNorm: 993720 1-2 Tablet(s) PO QHS prn spasm 05/200904/20/2011 Inactive Topamax 50 mg Tab RxNorm: 680290 1 Tablet(s) PO BID 02/16/20102009 Inactive Topamax 50 mg Tab RxNorm: 509219 1/2 Tablet(s) PO QHS for 1wk t hen 1 po QHS 02/15/2010 02/15/2010 Inactive Cefdinir 300 mg Cap RxNorm: 915188 1 Capsule(s) PO BID One tablet PO twice daily for 10 days. 02/03/2010 02/12/2010 Inactive Topamax 50 mg Tab RxNorm: 407267 1/2 Tablet(s) PO QHS for 1wk t hen 1 po QHS 01/27/2010 02/14/2010 Inactive Flexeril 5 mg Tab RxNorm: 444671 1 Tablet(s) PO TID prn spasm 01/2502/15/2010 Inactive Macrobid 100 mg Cap RxNorm: 0741033 1 Capsule(s) PO BID 09/01/2009 Inactive Prevacid 30 mg Cap RxNorm: 825379 1 Capsule(s) PO BID 09/01/200909/12 Inactive Flexeril 5 mg Tab RxNorm: 010422 1 Tablet(s) PO TID prn spasm 09/0109/30/2009 Inactive lisinopril 20 mg Tab RxNorm: 823854 1 Tablet(s) PO QD 08/31/200908/14 Inactive atenolol 25 mg Tab RxNorm: 711502 1 Tablet(s) PO QD No Start Date Inactive magnesium 100 mg tablet RxNorm: 1 Tablet(s) PO QD No Start Date Active Calcium with Vitamin D 600 mg-400 unit Tab RxNorm: 489498 1 Tab let(s) PO QD No Start Date Active Aspirin 81 mg Tab RxNorm: 294973 1 Tablet(s) PO QD No Start Date Active Brisdelle 7.5 mg capsule RxNorm: 4780329 1 Capsule(s) PO QHS No Sta rt Date 12/09/2015 Inactive Prevacid 30 mg Cap RxNorm: 490014 1 Capsule(s) PO QD No Start Date Inactive Ultram 50 mg Tab RxNorm: 860028 2 Tablet(s) PO QID prn headache No Start Date 04/13/2010 Inactive tizanidine 4 mg tablet RxNorm: 751384 1 Tablet(s) PO Q8 H as needed for muscle spasm No Start Date 05/09/2017 Inactive nystatin-triamcinolone 100,000 unit/g-0.1 % topical cream Rx Norm: 7507952 1 Application TOP QHS to rash No Start Date 08/21/2013 Inactive Imitrex 100 mg tablet RxNorm: 376997 1 Tablet(s) PO at WONG onset-May repeat in 6hours as needed No Start Date 08/03/2015 Inactive Treximet 85 mg-500 mg Tab RxNorm: 024058 1 Tablet(s) PO at WONG onset, may repeat i po in 2hrs if WONG remains No Start Date 12/02/2010 Inactive alprazolam 0.25 mg tablet RxNorm: 414962 1 Tablet(s) PO QPM No Star t Date 08/03/2015 Inactive amitriptyline 25 mg Tab RxNorm: 084488 1 Tablet(s) PO QAM No Start Date 12/06/2010 Inactive amitriptyline 10 mg Tab RxNorm: 597052 Tablet(s) PO Patel e 4 tablets by mouth 1 week before period and week of period and 3 tablets other 2 weeks of month No Start Date 09/04/2011 Inactive Omnaris 50 mcg Nasal [place] RxNorm: 793103 2 [place] NASAL QD each nostril No Start Date 12/20/2011 Inactive sertraline 25 mg tablet RxNorm: 808637 1 Tablet(s) PO QD No Start D ate 08/03/2015 Inactive atenolol 25 mg tablet RxNorm: 842824 1 Tablet(s) PO QD No Start Date 07/21/2013 Inactive hydrochlorothiazide 25 mg tablet RxNorm: 846968 1 Tablet(s) PO QAM No Start Date 05/26/2015 Inactive Maxalt 10 mg tablet RxNorm: 011811 Tablet(s) PO as needed for h eadache No Start Date 10/04/2015 Inactive atenolol 25 mg Tab RxNorm: 320305 1/2 Tablet(s) PO QD No Start Date 0 12/20/2011 Inactive Medrol (Camilo) 4 mg tablets in a dose pack RxNorm: 764931 Tablet(s) PO as directed No Start Date 11/11/2012 Inactive Naprosyn 500 mg tablet RxNorm: 337809 1 Tablet(s) PO BID No Start D ate 09/04/2014 Inactive promethazine-codeine 6.25 mg-10 mg/5 mL syrup RxNorm: 434931 PO No Start Date 06/29/2014 Inactive Flexeril 5 mg Tab RxNorm: 144834 2 Tablet(s) PO QHS No Start Date Inactive Treximet 85 mg-500 mg tablet RxNorm: 799519 Tablet(s) PO PRN No Sta rt Date 07/21/2013 Inactive cyclobenzaprine 5 mg tablet RxNorm: 504964 1-2 Tablet(s) PO QHS No Start Date 03/09/2015 Inactive atenolol 25 mg tablet RxNorm: 141977 1 Tablet(s) PO QD No Start Date 12/25/2016 Inactive lisinopril 20 mg Tab RxNorm: 275313 1 Tablet(s) PO QD No Start Date 0 10/06/2011 Inactive Topamax 50 mg Tab RxNorm: 176631 1 Tablet(s) PO BID No Start Date 08/2009 Inactive Treximet 85 mg-500 mg Tab RxNorm: 890331 Tablet(s) PO T vi 1 at headache onset and may repeat 1 in two hours if needed No Start Date 09/04/2011 Inactive Stool Softener 100 mg Cap RxNorm: 3070837 3 Capsule(s) PO QD No Sta rt Date 06/29/2014 Inactive flax seed oil RxNorm: 1 PO QD No Start Date 03/09/2015 Inactive Medication Administered No Medication Administered data Immunizations Vaccine Codes Date Status Tetanus, Diptheria, Pertussis CVX: 115 06/11/2018 Co mplete Results Observation Observation Code Item Item Code Result Date S ervice Location COMPREHENSIVE METABOLIC 42516 AST 15 U/L 2018 Unknown COMPREHENSIVE METABOLIC 57624 ALT 15 U/L 2018 Unknown COMPREHENSIVE METABOLIC 79566 BUN 19 mg/dL 2018 Unknown COMPREHENSIVE METABOLIC 47020 ALBUMIN 4.3 g/dL 2018 Unknown COMPREHENSIVE METABOLIC 81114 CHLORIDE 106 mmol/L 06/29 Unknown COMPREHENSIVE METABOLIC 28583 Bili Total 0.6 mg/dL 06/29 Unknown COMPREHENSIVE METABOLIC 96064 ALK PHOS 82 U/L 2018 Unknown COMPREHENSIVE METABOLIC 99004 SODIUM 141 mmol/L 06/29 Unknown COMPREHENSIVE METABOLIC 94414 CREATININE 0.66 mg/dL 06/15 Unknown COMPREHENSIVE METABOLIC 11198 CALCIUM 9.6 mg/dL 2018 Unknown COMPREHENSIVE METABOLIC 22645 POTASSIUM 4.3 mmol/L 06/29 Unknown COMPREHENSIVE METABOLIC 89336 Total Protein 7.0 g/dL Unknown COMPREHENSIVE METABOLIC 89753 Glucose 102 mg/dL 2018 Unknown COMPREHENSIVE METABOLIC 75722 Bicarbonate 29 mmol/L 06/15 Unknown COMPREHENSIVE METABOLIC 23626 AGAP 6 mmol/L 2018 Unknown FREE T4 44779 T4 Free 1.04 ng/dL 06/29/2018 Unknown GFR CALC [id number] GFR Non Afr Amr >60 mL/min 06/29/2018 Un known GFR CALC [id number] GFR Afr Amr >60 mL/min 06/29/2018 Unknow n [facility] 61585 Cholesterol 197 mg/dL 06/29/2018 Unkno wn [facility] 56322 Triglyceride 70 mg/dL 06/29/2018 Unkn own [facility] 02241 HDL CHOLESTEROL 45 mg/dL 06/29/2018 U nknown [facility] 61591 Chol/HDL Ratio 4.38 ratio 06/29/2018 U nknown [facility] 85753 NON-HDL Chol 152 mg/dL 06/29/2018 Unkn own [facility] 31895 LDL Cholesterol 138 mg/dL 06/29/2018 U nknown THYROID STIMULATING HORMONE 36348 TSH 1.477 uIU/mL 06/29/2018 Unknown COMPLETE BLOOD COUNT [id number] WBC 5.2 10e9/L 06/29/19 19 Unknown COMPLETE BLOOD COUNT [id number] RBC 4.93 10e12/L 2018 Unknown COMPLETE BLOOD COUNT [id number] HEMOGLOBIN 14.3 g/dL 06/29/19 19 Unknown COMPLETE BLOOD COUNT [id number] HEMATOCRIT 42.9 % 06/29/19 19 Unknown COMPLETE BLOOD COUNT 1310218 MCV 87.0 fL 9 Unknown COMPLETE BLOOD COUNT [id number] MCH 29.0 pg 9 Unknown COMPLETE BLOOD COUNT [id number] MCHC 33.3 g/dL 9 Unknown COMPLETE BLOOD COUNT [id number] PLATELET COUNT 289 10e9/L Unknown COMPLETE BLOOD COUNT [id number] Mean Plt Volume 10.6 fL Unknown COMPLETE BLOOD COUNT [id number] Neut Auto 74.1 % 9 Unknown COMPLETE BLOOD COUNT [id number] Lymph Auto 14.7 % 06/29/19 19 Unknown COMPLETE BLOOD COUNT [id number] [place]xton Auto 8.3 % 9 Unknown COMPLETE BLOOD COUNT [id number] Eos Auto 2.7 % 9 Unknown COMPLETE BLOOD COUNT 1395713 RDW 13.7 % 9 Unknown COMPLETE BLOOD COUNT [id number] Baso Auto 0.2 % 9 Unknown COMPLETE BLOOD COUNT [id number] Neutrophil Abs 3.85 10e9/L Unknown COMPLETE BLOOD COUNT [id number] Lymphocyte Abs 0.76 10e9/L Unknown COMPLETE BLOOD COUNT [id number] Monocyte Abs 0.43 10e9/L 06/15 Unknown COMPLETE BLOOD COUNT [id number] Eosinophil Abs 0.14 10e9/L Unknown COMPLETE BLOOD COUNT [id number] Basophil Abs 0.01 10e9/L 06/15 Unknown COMPLETE BLOOD COUNT [id number] RDW-SD 42.7 fL 9 Unknown IRON 81932 IRON TEST 42 UG/DL 07/31/2014 Unknown FERRITIN 68982 FERRITIN 10 NG/ML 07/31/2014 Unknown VITAMIN B 12 FOLIC ACID 64887|80881 VIT B 12 233 PG/ML 07/13 Unknown VITAMIN B 12 FOLIC ACID 74856|16033 FOLIC ACID 8.7 NG/ML Unknown COMPLETE BLOOD COUNT [id number] WBC 6.4 10e9/L 07/30/19 15 Unknown COMPLETE BLOOD COUNT [id number] RBC 4.36 10e12/L 2014 Unknown COMPLETE BLOOD COUNT [id number] HGB 11.5 g/dL 5 Unknown COMPLETE BLOOD COUNT [id number] HCT DET 35.3 % 5 Unknown COMPLETE BLOOD COUNT 5579760 MCV 81.0 fL 5 Unknown COMPLETE BLOOD COUNT [id number] MCH 26.4 pg 5 Unknown COMPLETE BLOOD COUNT 0891967 MCHC 32.6 g/dL 5 Unknown COMPLETE BLOOD COUNT 5599381 PLT 329 10e9/L 07/30/19 15 Unknown COMPLETE BLOOD COUNT [id number] MPV 10.4 fL 5 Unknown COMPLETE BLOOD COUNT [id number] ROLAND % 69.6 % 5 Unknown COMPLETE BLOOD COUNT [id number] LY % 21.3 % 5 Unknown COMPLETE BLOOD COUNT [id number] MON % 6.8 % 5 Unknown COMPLETE BLOOD COUNT [id number] EOS % 2.0 % 5 Unknown COMPLETE BLOOD COUNT [id number] BASO % 0.3 % 5 Unknown COMPLETE BLOOD COUNT [id number] RDW 15.9 % 5 Unknown COMPLETE BLOOD COUNT [id number] ABS ROLAND 4.45 10e9/L 015 Unknown COMPLETE BLOOD COUNT [id number] ABS LYMPH 1.36 10e9/L 015 Unknown COMPLETE BLOOD COUNT [id number] ABS MONO 0.44 10e9/L 015 Unknown COMPLETE BLOOD COUNT [id number] ABS EOS 0.13 10e9/L 015 Unknown COMPLETE BLOOD COUNT [id number] ABS BASO 0.02 10e9/L 015 Unknown COMPLETE BLOOD COUNT [id number] RDW-SD 46.1 fL 5 Unknown LIPID GROUP [id number] HDL TEST 41 MG/DL 07/29/2014 Unknown LIPID GROUP 06086 TRIG 92 MG/DL 07/29/2014 Unknown LIPID GROUP [id number] TEST LDL 118 MG/DL 07/29/2014 Unknown LIPID GROUP 08049 CHOL 177 MG/DL 07/29/2014 Unknown LIPID GROUP 50236 RCHOL/HDL 4.32 RATIO 07/29/2014 Unknow n LIPID GROUP 47339 NON-HDL CH 136 MG/DL 07/29/2014 Unknow n GFR CALC [id number] GFR AA >60 ML/MIN 07/29/2014 Unknown GFR CALC [id number] GFR NON-AA >60 ML/MIN 07/29/2014 Unknown FREE T4 [id number] FREE T4 1.10 NG/DL 07/29/2014 Unknown COMPREHENSIVE METABOLIC 91752 AST 13 U/L 2014 Unknown COMPREHENSIVE METABOLIC 29862 ALT 12 IU/L 2014 Unknown COMPREHENSIVE METABOLIC 47352 BUN 16 MG/DL 2014 Unknown COMPREHENSIVE METABOLIC 31104 ALBUMIN 4.1 GM/DL 2014 Unknown COMPREHENSIVE METABOLIC 39938 CHLORIDE 106 MMOL/L 07/29 Unknown COMPREHENSIVE METABOLIC 74141 BILI TOT 0.4 MG/DL 2014 Unknown COMPREHENSIVE METABOLIC 97484 ALK PHOS 77 U/L 2014 Unknown COMPREHENSIVE METABOLIC 82731 SODIUM 137 MMOL/L 07/29 Unknown COMPREHENSIVE METABOLIC 28504 CREATININE 0.65 MG/DL 07/13 Unknown COMPREHENSIVE METABOLIC 35413 CALCIUM 9.0 MG/DL 2014 Unknown COMPREHENSIVE METABOLIC 21448 POTASSIUM 4.0 MMOL/L 07/29 Unknown COMPREHENSIVE METABOLIC 08005 PROT TOT 6.3 GM/DL 2014 Unknown COMPREHENSIVE METABOLIC 64734 Glucose 98 MG/DL 2014 Unknown COMPREHENSIVE METABOLIC 70689 BICARB 26 MMOL/L 2014 Unknown COMPREHENSIVE METABOLIC 06076 ANION GAP 5 MEQ/L 2014 Unknown THYROID STIMULATING HORMONE 02584 TSH 1.678 uIU/ML 07/29/2014 Unknown GFR CALC 3004041 GFR AA >60 ML/MIN 02/26/2013 Unknown GFR CALC 2793407 GFR NON-AA >60 ML/MIN 02/26/2013 Unknown THYROID STIMULATING HORMONE 38639 TSH 1.635 uIU/ML 02/26/2013 Unknown COMPLETE BLOOD COUNT [id number] WBC 7.8 10e9/L 02/27/20 13 Unknown COMPLETE BLOOD COUNT [id number] RBC 4.60 10e12/L 2012 Unknown COMPLETE BLOOD COUNT 5825835 HGB 12.7 g/dL 3 Unknown COMPLETE BLOOD COUNT [id number] HCT DET 38.1 % 3 Unknown COMPLETE BLOOD COUNT 8179777 MCV 82.8 fL 3 Unknown COMPLETE BLOOD COUNT 7386114 MCH 27.6 pg 3 Unknown COMPLETE BLOOD COUNT 2782121 MCHC 33.3 g/dL 3 Unknown COMPLETE BLOOD COUNT [id number] PLT 324 10e9/L 02/27/20 13 Unknown COMPLETE BLOOD COUNT 7444326 MPV 10.2 fL 3 Unknown COMPLETE BLOOD COUNT 3102603 ROLAND % 72.0 % 3 Unknown COMPLETE BLOOD COUNT 7916103 LY % 20.1 % 3 Unknown COMPLETE BLOOD COUNT [id number] MON % 6.3 % 3 Unknown COMPLETE BLOOD COUNT 4116962 EOS % 1.3 % 3 Unknown COMPLETE BLOOD COUNT 8014282 BASO % 0.3 % 3 Unknown COMPLETE BLOOD COUNT [id number] RDW 14.4 % 3 Unknown COMPLETE BLOOD COUNT [id number] ABS ROLAND 5.62 10e9/L 013 Unknown COMPLETE BLOOD COUNT [id number] ABS LYMPH 1.57 10e9/L 013 Unknown COMPLETE BLOOD COUNT [id number] ABS MONO 0.49 10e9/L 013 Unknown COMPLETE BLOOD COUNT [id number] ABS EOS 0.10 10e9/L 013 Unknown COMPLETE BLOOD COUNT [id number] ABS BASO 0.02 10e9/L 013 Unknown COMPLETE BLOOD COUNT [id number] RDW-SD 42.8 fL 3 Unknown COMPREHENSIVE METABOLIC 24928 AST 15 U/L 2012 Unknown COMPREHENSIVE METABOLIC 49912 ALT 14 IU/L 2012 Unknown COMPREHENSIVE METABOLIC 71904 BUN 14 MG/DL 2012 Unknown COMPREHENSIVE METABOLIC 94518 ALBUMIN 4.2 GM/DL 2012 Unknown COMPREHENSIVE METABOLIC 99791 CHLORIDE 104 MMOL/L 02/26 Unknown COMPREHENSIVE METABOLIC 54612 BILI TOT 0.6 MG/DL 2012 Unknown COMPREHENSIVE METABOLIC 31995 ALK PHOS 71 U/L 2012 Unknown COMPREHENSIVE METABOLIC 53273 SODIUM 136 MMOL/L 02/26 Unknown COMPREHENSIVE METABOLIC 50793 CREATININE 0.62 MG/DL 02/12 Unknown COMPREHENSIVE METABOLIC 17939 CALCIUM 9.5 MG/DL 2012 Unknown COMPREHENSIVE METABOLIC 84125 POTASSIUM 4.1 MMOL/L 02/26 Unknown COMPREHENSIVE METABOLIC 68248 PROT TOT 6.7 GM/DL 2012 Unknown COMPREHENSIVE METABOLIC 26104 Glucose 92 MG/DL 2012 Unknown COMPREHENSIVE METABOLIC 83261 BICARB 26 MMOL/L 2012 Unknown COMPREHENSIVE METABOLIC 85448 ANION GAP 6 MEQ/L 2012 Unknown LIPID GROUP 35412 HDL TEST 45 MG/DL 02/26/2013 Unknown LIPID GROUP 62084 TRIG 107 MG/DL 02/26/2013 Unknown LIPID GROUP 65930 TEST LDL 129 MG/DL 02/26/2013 Unknown LIPID GROUP 50260 CHOL 195 MG/DL 02/26/2013 Unknown LIPID GROUP 13905 RCHOL/HDL 4.33 RATIO 02/26/2013 Unknow n FREE T4 77917 FREE T4 1.07 NG/DL 02/26/2013 Unknown MYCOPLASMA ANTIBODY, IFA [id number] MYCO G IFA 1:128 06/2012 Unknown MYCOPLASMA ANTIBODY, IFA [id number] MYCO M IFA <1:10 06/2012 Unknown MYCOPLASMA ANTIBODY, IFA [id number] MYCO INTER SEE BELO 06/2012 Unknown COMPLETE BLOOD COUNT 0687881 WBC 6.0 10e9/L 11/13/19 13 Unknown COMPLETE BLOOD COUNT 6300781 RBC 4.68 10e12/L 2012 Unknown COMPLETE BLOOD COUNT 7650720 HGB 12.9 g/dL 3 Unknown COMPLETE BLOOD COUNT 0206641 HCT DET 38.7 % 3 Unknown COMPLETE BLOOD COUNT 4254426 MCV 82.7 fL 3 Unknown COMPLETE BLOOD COUNT [id number] MCH 27.6 pg 3 Unknown COMPLETE BLOOD COUNT 4055329 MCHC 33.3 g/dL 3 Unknown COMPLETE BLOOD COUNT 3409485 PLT 297 10e9/L 11/13/19 13 Unknown COMPLETE BLOOD COUNT 3358451 MPV 11.1 fL 3 Unknown COMPLETE BLOOD COUNT 2188770 ROLAND % 63.8 % 3 Unknown COMPLETE BLOOD COUNT 9790604 LY % 28.2 % 3 Unknown COMPLETE BLOOD COUNT 2386698 MON % 6.6 % 3 Unknown COMPLETE BLOOD COUNT 4103645 EOS % 1.2 % 3 Unknown COMPLETE BLOOD COUNT 8837961 BASO % 0.2 % 3 Unknown COMPLETE BLOOD COUNT 7813538 RDW 14.9 % 3 Unknown COMPLETE BLOOD COUNT [id number] ABS ROLAND 3.83 10e9/L 013 Unknown COMPLETE BLOOD COUNT [id number] ABS LYMPH 1.69 10e9/L 013 Unknown COMPLETE BLOOD COUNT [id number] ABS MONO 0.40 10e9/L 013 Unknown COMPLETE BLOOD COUNT [id number] ABS EOS 0.07 10e9/L 013 Unknown COMPLETE BLOOD COUNT 7139410 ABS BASO 0.01 10e9/L 013 Unknown COMPLETE BLOOD COUNT [id number] RDW-SD 44.8 fL 3 Unknown HEMOGLOBIN A1C (GLYCOSYLATED) 6700081 A1C HPLC 28360-8 5.1 % 06/06/2012 Unknown RA FACTOR 06050 RA FACTOR <20.0 IU/ML 06/06/2012 Unknown ANTINUCLEAR ANTIBODY SCREEN 44196 FERDINAND SCR <1:80 Unknown INSULIN SERUM 35395 INSULIN 12.2 mU/L 06/06/2012 Unkno wn COMPREHENSIVE METABOLIC 05022 AST 13 U/L 2012 Unknown COMPREHENSIVE METABOLIC 11411 ALT 13 IU/L 2012 Unknown COMPREHENSIVE METABOLIC 04175 BUN 21 MG/DL 2012 Unknown COMPREHENSIVE METABOLIC 65182 ALBUMIN 4.7 GM/DL 2012 Unknown COMPREHENSIVE METABOLIC 25636 CHLORIDE 106 MMOL/L 06/05 Unknown COMPREHENSIVE METABOLIC 07848 BILI TOT 0.6 MG/DL 2012 Unknown COMPREHENSIVE METABOLIC 99807 ALK PHOS 61 U/L 2012 Unknown COMPREHENSIVE METABOLIC 34400 SODIUM 139 MMOL/L 06/05 Unknown COMPREHENSIVE METABOLIC 53852 CREATININE 0.71 MG/DL 05/16 Unknown COMPREHENSIVE METABOLIC 16006 CALCIUM 9.8 MG/DL 2012 Unknown COMPREHENSIVE METABOLIC 80037 POTASSIUM 4.6 MMOL/L 06/05 Unknown COMPREHENSIVE METABOLIC 52480 PROT TOT 6.7 GM/DL 2012 Unknown COMPREHENSIVE METABOLIC 91712 Glucose 104 MG/DL 2012 Unknown COMPREHENSIVE METABOLIC 51480 BICARB 24 MMOL/L 2012 Unknown COMPREHENSIVE METABOLIC 56466 ANION GAP 9 MEQ/L 2012 Unknown GFR CALC 7778054 GFR AA >60 ML/MIN 06/05/2012 Unknown GFR CALC 2695594 GFR NON-AA >60 ML/MIN 06/05/2012 Unknown LIPID GROUP 37748 HDL TEST 46 MG/DL 06/05/2012 Unknown LIPID GROUP 15678 TRIG 77 MG/DL 06/05/2012 Unknown LIPID GROUP 81900 TEST LDL 135 MG/DL 06/05/2012 Unknown LIPID GROUP 50932 CHOL 196 MG/DL 06/05/2012 Unknown LIPID GROUP 15105 RCHOL/HDL 4.26 RATIO 06/05/2012 Unknow n COMPLETE BLOOD COUNT 6657958 WBC 5.9 10e9/L 06/05/19 13 Unknown COMPLETE BLOOD COUNT 2687475 RBC 5.02 10e12/L 2012 Unknown COMPLETE BLOOD COUNT 6578690 HGB 13.9 g/dL 3 Unknown COMPLETE BLOOD COUNT 1243966 HCT DET 41.5 % 3 Unknown COMPLETE BLOOD COUNT 3745918 MCV 82.7 fL 3 Unknown COMPLETE BLOOD COUNT 9226424 MCH 27.7 pg 3 Unknown COMPLETE BLOOD COUNT 3679343 MCHC 33.5 g/dL 3 Unknown COMPLETE BLOOD COUNT 9466404 PLT 323 10e9/L 06/05/19 13 Unknown COMPLETE BLOOD COUNT 6846334 MPV 11.3 fL 3 Unknown COMPLETE BLOOD COUNT 7193492 ROLAND % 70.6 % 3 Unknown COMPLETE BLOOD COUNT 1473025 LY % 21.4 % 3 Unknown COMPLETE BLOOD COUNT 5986589 MON % 6.4 % 3 Unknown COMPLETE BLOOD COUNT [id number] EOS % 1.3 % 3 Unknown COMPLETE BLOOD COUNT 3944644 BASO % 0.3 % 3 Unknown COMPLETE BLOOD COUNT 9779191 RDW 14.9 % 3 Unknown COMPLETE BLOOD COUNT [id number] ABS ROLAND 4.17 10e9/L 013 Unknown COMPLETE BLOOD COUNT [id number] ABS LYMPH 1.26 10e9/L 013 Unknown COMPLETE BLOOD COUNT [id number] ABS MONO 0.38 10e9/L 013 Unknown COMPLETE BLOOD COUNT [id number] ABS EOS 0.08 10e9/L 013 Unknown COMPLETE BLOOD COUNT [id number] ABS BASO 0.02 10e9/L 013 Unknown COMPLETE BLOOD COUNT 9774987 RDW-SD 44.8 fL 3 Unknown THYROID STIMULATING HORMONE 31638 TSH 1.684 uIU/ML 06/05/2012 Unknown FREE T4 49315 FREE T4 1.19 NG/DL 06/05/2012 Unknown BASIC METABOLIC PANEL 43763 Glucose 100 MG/DL 04/13/20 11 Unknown BASIC METABOLIC PANEL 46846 BUN 18 MG/DL 04/13/20 11 Unknown BASIC METABOLIC PANEL 69683 CREATININE 0.66 MG/DL 2010 Unknown BASIC METABOLIC PANEL 15950 SODIUM 138 MMOL/L 011 Unknown BASIC METABOLIC PANEL 50115 BICARB 26 MMOL/L 04/13/20 11 Unknown BASIC METABOLIC PANEL 48964 POTASSIUM 4.0 MMOL/L 011 Unknown BASIC METABOLIC PANEL 44585 ANION GAP 9 MEQ/L 04/13/20 11 Unknown BASIC METABOLIC PANEL 88308 CHLORIDE 103 MMOL/L 011 Unknown BASIC METABOLIC PANEL 15297 CALCIUM 9.6 MG/DL 04/13/20 11 Unknown FSH 9060176 FSH 4.6 MIU/ML 04/13/2011 Unknown GFR CALC 5594883 GFR AA >60 ML/MIN 04/13/2011 Unknown GFR CALC 9825384 GFR NON-AA >60 ML/MIN 04/13/2011 Unknown ESTRADIOL SERUM 13234 ESTRADIOL 113 PG/ML 04/13/2011 [place] [address] LH 3.7 MIU/ML 04/13/2011 Unknown THYROID STIMULATING HORMONE 75322 TSH 1.995 uIU/ML 04/13/2011 Unknown LIPID GROUP 48109 HDL TEST 40 MG/DL 12/21/2010 Unknown LIPID GROUP 43851 TRIG 66 MG/DL 12/21/2010 Unknown LIPID GROUP 10990 TEST LDL 132 MG/DL 12/21/2010 Unknown LIPID GROUP 50911 CHOL 185 MG/DL 12/21/2010 Unknown LIPID GROUP 30199 RCHOL/HDL 4.63 RATIO 12/21/2010 Unknow n THYROID STIMULATING HORMONE 14295 TSH 1.876 uIU/ML 12/21/2010 Unknown COMPLETE BLOOD COUNT 80884 WBC 7.0 10e9/L 12/22/19 11 Unknown COMPLETE BLOOD COUNT 99880 RBC 4.28 10e12/L 2010 Unknown COMPLETE BLOOD COUNT 68213 HGB 12.1 g/dL 1 Unknown COMPLETE BLOOD COUNT 26149 HCT DET 36.1 % 1 Unknown COMPLETE BLOOD COUNT 25677 MCV 84.3 fL 1 Unknown COMPLETE BLOOD COUNT 98309 MCH 28.3 pg 1 Unknown COMPLETE BLOOD COUNT 22089 MCHC 33.5 g/dL 1 Unknown COMPLETE BLOOD COUNT 10104 PLT 306 10e9/L 12/22/19 11 Unknown COMPLETE BLOOD COUNT 38562 MPV 10.4 fL 1 Unknown COMPLETE BLOOD COUNT 62708 ROLAND % 69.9 % 1 Unknown COMPLETE BLOOD COUNT 78758 LY % 22.2 % 1 Unknown COMPLETE BLOOD COUNT 99545 MON % 5.7 % 1 Unknown COMPLETE BLOOD COUNT 24545 EOS % 1.9 % 1 Unknown COMPLETE BLOOD COUNT 72859 BASO % 0.3 % 1 Unknown COMPLETE BLOOD COUNT 19121 RDW 14.0 % 1 Unknown COMPLETE BLOOD COUNT 83704 ABS ROLAND 4.89 10e9/L 011 Unknown COMPLETE BLOOD COUNT 48146 ABS LYMPH 1.55 10e9/L 011 Unknown COMPLETE BLOOD COUNT 14430 ABS MONO 0.40 10e9/L 011 Unknown COMPLETE BLOOD COUNT 94981 ABS EOS 0.13 10e9/L 011 Unknown COMPLETE BLOOD COUNT 10910 ABS BASO 0.02 10e9/L 011 Unknown COMPLETE BLOOD COUNT 41872 RDW-SD 41.5 fL 1 Unknown FREE T4 71331 FREE T4 1.02 NG/DL 12/21/2010 Unknown COMPREHENSIVE METABOLIC 91929 AST 11 U/L 2010 Unknown COMPREHENSIVE METABOLIC 07707 ALT 9 IU/L 2010 Unknown COMPREHENSIVE METABOLIC 30466 BUN 16 MG/DL 2010 Unknown COMPREHENSIVE METABOLIC 59958 ALBUMIN 4.0 GM/DL 2010 Unknown COMPREHENSIVE METABOLIC 41476 CHLORIDE 106 MMOL/L 12/21 Unknown COMPREHENSIVE METABOLIC 84765 BILI TOT 0.3 MG/DL 2010 Unknown COMPREHENSIVE METABOLIC 77911 ALK PHOS 59 U/L 2010 Unknown COMPREHENSIVE METABOLIC 14059 SODIUM 139 MMOL/L 12/21 Unknown COMPREHENSIVE METABOLIC 22132 CREATININE 0.66 MG/DL 01/2011 Unknown COMPREHENSIVE METABOLIC 55404 CALCIUM 8.9 MG/DL 2010 Unknown COMPREHENSIVE METABOLIC 80522 POTASSIUM 4.2 MMOL/L 12/21 Unknown COMPREHENSIVE METABOLIC 47094 PROT TOT 6.5 GM/DL 2010 Unknown COMPREHENSIVE METABOLIC 29490 Glucose 101 MG/DL 2010 Unknown COMPREHENSIVE METABOLIC 15784 BICARB 28 MMOL/L 2010 Unknown COMPREHENSIVE METABOLIC 09265 ANION GAP 5 MEQ/L 2010 Unknown GFR CALC 1408882 GFR AA >60 ML/MIN 12/21/2010 Unknown GFR CALC 0938243 GFR NON-AA >60 ML/MIN 12/21/2010 Unknown LIPID GROUP 71589 HDL TEST 40 MG/DL 12/10/2009 Unknown LIPID GROUP 75751 TRIG 98 MG/DL 12/10/2009 Unknown LIPID GROUP 26474 TEST LDL 128 MG/DL 12/10/2009 Unknown LIPID GROUP 27983 CHOL 188 MG/DL 12/10/2009 Unknown LIPID GROUP 97787 RCHOL/HDL 4.70 RATIO 12/10/2009 Unknow n DF 3075810 POLY 74 % 12/09/2009 Unknown DF [id number] BAND 0 % 12/09/2009 Unknown DF [id number] LYMP 21 % 12/09/2009 Unknown DF 6989660 MONO 3 % 12/09/2009 Unknown DF 3609686 EOS 2 % 12/09/2009 Unknown DF 9465949 BASO 0 % 12/09/2009 Unknown GFR CALC 7858217 GFR AA >60 ML/MIN 12/09/2009 Unknown GFR CALC 0907775 GFR NON-AA >60 ML/MIN 12/09/[address] 8598743 WBC 8.7 10e9/L 12/09/[address] 9456799 RBC 4.78 10e12/L 12/09/[address] [place] 3381715 HGB 13.2 g/dL 12/09/[address] 9160068 HCT DET 40.2 % 12/09/[address] 2802882 MCV 84.1 fL 12/09/[address] 7004137 MCH 27.6 pg 12/09/[address] 8461233 MCHC 32.8 g/dL 12/09/[address] 0732447 PLT 374 10e9/L 12/09/[address] 1833988 MPV 11.0 fL 12/09/[address] 7504178 RDW 14.4 % 12/09/[address] 2539758 ROLAND % 70.2 % 12/09/[address] [id number] RDW-SD 44.7 fL 12/09/[address] 7013671 LY % 22.4 % 12/09/[address] [id number] MON % 6.2 % 12/09/[address] 3140298 EOS % 1.0 % 12/09/[address] 2446732 BASO % 0.2 % 12/09/[address] 5303527 ABS ROLAND 6.08 10e9/L 12/09/[address] [id number] ABS LYMPH 1.94 10e9/L 12/09/[address] [id number] ABS MONO 0.54 10e9/L 12/09/[address] 2917450 ABS EOS 0.09 10e9/L 12/09/[address] [id number] ABS BASO 0.02 10e9/L 12/09/2009 Unknown THYROID STIMULATING HORMONE 02344 TSH 1.916 uIU/ML 12/09/2009 Unknown COMPREHENSIVE METABOLIC 11979 AST 13 U/L 2009 Unknown COMPREHENSIVE METABOLIC 19934 ALT 13 IU/L 2009 Unknown COMPREHENSIVE METABOLIC 22134 BUN 18 MG/DL 2009 Unknown COMPREHENSIVE METABOLIC 81845 ALBUMIN 4.3 GM/DL 2009 Unknown COMPREHENSIVE METABOLIC 63250 CHLORIDE 106 MMOL/L 12/09 Unknown COMPREHENSIVE METABOLIC 80675 BILI TOT 0.5 MG/DL 2009 Unknown COMPREHENSIVE METABOLIC 20039 ALK PHOS 69 U/L 2009 Unknown COMPREHENSIVE METABOLIC 99118 SODIUM 137 MMOL/L 12/09 Unknown COMPREHENSIVE METABOLIC 39985 CREATININE 0.69 MG/DL 11/13 Unknown COMPREHENSIVE METABOLIC 56158 CALCIUM 9.1 MG/DL 2009 Unknown COMPREHENSIVE METABOLIC 54179 POTASSIUM 4.5 MMOL/L 12/09 Unknown COMPREHENSIVE METABOLIC 44421 PROT TOT 6.9 GM/DL 2009 Unknown COMPREHENSIVE METABOLIC 90482 Glucose 97 MG/DL 2009 Unknown COMPREHENSIVE METABOLIC 79622 BICARB 20 MMOL/L 2009 Unknown COMPREHENSIVE METABOLIC 07745 ANION GAP 11 MEQ/L 2009 Unknown Procedures Procedure Codes Date ROUTINE VENIPUNCTURE CPT-4: 75302 06/29/2018 ASSAY OF FREE THYROXINE CPT-4: 63619 06/29/2018 ASSAY THYROID STIM HORMONE CPT-4: 87180 06/29/2018 COMPREHEN METABOLIC PANEL CPT-4: 66279 06/29/2018 COMPLETE CBC W/AUTO DIFF WBC CPT-4: 12532 06/29/2018 LIPID PANEL CPT-4: 96464 06/29/2018 TDAP VACCINE 7 YRS/> IM CPT-4: 49130 06/11/2018 IMMUNIZATION ADMIN CPT-4: 82196 06/11/2018 ROUTINE VENIPUNCTURE CPT-4: 54630 04/05/2017 ASSAY THYROID STIM HORMONE CPT-4: 86150 04/05/2017 COMPREHEN METABOLIC PANEL CPT-4: 69960 04/05/2017 COMPLETE CBC W/AUTO DIFF WBC CPT-4: 84340 04/05/2017 LIPID PANEL CPT-4: 10354 04/05/2017 ASSAY OF BLOOD/URIC ACID CPT-4: 21878 04/05/2017 THER/PROPH/DIAG INJ SC/IM CPT-4: 44825 02/12/2016 TRIAMCINOLONE ACET INJ NOS CPT-4: J3301 02/12/2016 DEXAMETHASONE SODIUM PHOS CPT-4: J1100 02/12/2016 PRESCRIP TRANSMIT VIA ERX SY CPT-4: G8553 10/01/2015 URINALYSIS NONAUTO W/O SCOPE CPT-4: 80987 10/01/2015 URINE CULTURE/ COLONY COUNT CPT-4: 69326 10/01/2015 OCCULT BLOOD FECES CPT-4: 60289 08/04/2015 SPECIMEN HANDLING OFFICE-LAB CPT-4: 43839 08/04/2015 URINALYSIS NONAUTO W/O SCOPE CPT-4: 03503 05/27/2015 URINE CULTURE/ COLONY COUNT CPT-4: 09697 05/27/2015 THER/PROPH/DIAG INJ SC/IM CPT-4: 67910 03/10/2015 KETOROLAC TROMETHAMINE INJ CPT-4: J1885 03/10/2015 ROUTINE VENIPUNCTURE CPT-4: 37313 07/29/2014 ASSAY OF FREE THYROXINE CPT-4: 28648 07/29/2014 ASSAY THYROID STIM HORMONE CPT-4: 58290 07/29/2014 COMPREHEN METABOLIC PANEL CPT-4: 60626 07/29/2014 COMPLETE CBC W/AUTO DIFF WBC CPT-4: 48371 07/29/2014 LIPID PANEL CPT-4: 58619 07/29/2014 ASSAY OF IRON CPT-4: 35914 07/29/2014 ASSAY OF FERRITIN CPT-4: 91407 07/29/2014 VITAMIN B 12 FOLIC ACID CPT-4: 25683|12267 07/29/2014 URINALYSIS NONAUTO W/O SCOPE CPT-4: 81035 05/31/2013 URINE CULTURE/ COLONY COUNT CPT-4: 40624 05/31/2013 INFLUENZA ASSAY W/OPTIC CPT-4: 69145 05/27/2013 THER/PROPH/DIAG INJ SC/IM CPT-4: 43921 05/27/2013 METHYLPREDNISOLONE 40 MG INJ CPT-4: J1030 05/27/2013 TRIAMCINOLONE ACET INJ NOS CPT-4: J3301 05/27/2013 ROUTINE VENIPUNCTURE CPT-4: 78857 02/26/2013 ASSAY OF FREE THYROXINE CPT-4: 96474 02/26/2013 ASSAY THYROID STIM HORMONE CPT-4: 43498 02/26/2013 COMPREHEN METABOLIC PANEL CPT-4: 37103 02/26/2013 COMPLETE CBC W/AUTO DIFF WBC CPT-4: 89137 02/26/2013 LIPID PANEL CPT-4: 12107 02/26/2013 ROUTINE VENIPUNCTURE CPT-4: 84467 11/12/2012 COMPLETE CBC W/AUTO DIFF WBC CPT-4: 83855 11/12/2012 MYCOPLASMA ANTIBODY, IFA CPT-4: 33212R7 11/12/2012 ROUTINE VENIPUNCTURE CPT-4: 80254 06/05/2012 ASSAY OF FREE THYROXINE CPT-4: 65755 06/05/2012 ASSAY THYROID STIM HORMONE CPT-4: 84073 06/05/2012 COMPREHEN METABOLIC PANEL CPT-4: 79376 06/05/2012 COMPLETE CBC W/AUTO DIFF WBC CPT-4: 72280 06/05/2012 LIPID PANEL CPT-4: 90105 06/05/2012 ANTINUCLEAR ANTIBODIES CPT-4: 25928 06/05/2012 RHEUMATOID FACTOR QUANT CPT-4: 74751 06/05/2012 ASSAY OF INSULIN CPT-4: 45588 06/05/2012 A1C GLYCOSYLATED HEMOGLOBIN TEST CPT-4: 58467 013 SPECIMEN HANDLING OFFICE-LAB CPT-4: 13372 12/21/2011 ROUTINE VENIPUNCTURE CPT-4: 06536 04/13/2011 ASSAY THYROID STIM HORMONE CPT-4: 14023 04/13/2011 METABOLIC PANEL TOTAL CA CPT-4: 26564 04/13/2011 FSH CPT-4: 7003875 04/13/2011 LH CPT-4: 57761 04/13/2011 ASSAY OF ESTRADIOL CPT-4: 33424 04/13/2011 URINALYSIS NONAUTO W/O SCOPE CPT-4: 22130 02/04/2011 URINE CULTURE/ COLONY COUNT CPT-4: 96090 02/04/2011 ROUTINE VENIPUNCTURE CPT-4: 01011 12/21/2010 ASSAY OF FREE THYROXINE CPT-4: 61131 12/21/2010 ASSAY THYROID STIM HORMONE CPT-4: 65060 12/21/2010 COMPLETE CBC W/AUTO DIFF WBC CPT-4: 48114 12/21/2010 COMPREHEN METABOLIC PANEL CPT-4: 00218 12/21/2010 LIPID PANEL CPT-4: 51082 12/21/2010 OCCULT BLOOD FECES CPT-4: 61170 12/06/2010 ROUTINE VENIPUNCTURE CPT-4: 31750 12/09/2009 CBC WITH MANUAL DIFFERENTIAL CPT-4: 56762|61059 12/09/2009 COMPREHEN METABOLIC PANEL CPT-4: 49721 12/09/2009 LIPID PANEL CPT-4: 95300 12/09/2009 ASSAY THYROID STIM HORMONE CPT-4: 79496 12/09/2009 SPECIMEN HANDLING OFFICE-LAB CPT-4: 51285 12/08/2009 THER/PROPH/DIAG INJ SC/IM CPT-4: 78851 09/01/2009 KETOROLAC TROMETHAMINE INJ CPT-4: J1885 09/01/2009 URINALYSIS NONAUTO W/O SCOPE CPT-4: 57501 08/26/2009 Vital Signs Date Vital 01/15/2019 Blood [...] 1: 106/68 Code: 8480-6 BMI: 36.2 Code: 48273-5 Heart Rate 1: 72 bpm Height: 5'2" Respiratory Rate: 20 bpm SpO2: 97% Tempera ture: 37.1 (C) / 98.8 (F) Weight: 198 lbs 04/05/2017 Blood Pressure 1: 114/78 Code: 8480-6 BMI: 35.5 Code: 71740-4 Heart Rate 1: 68 bpm Height: 5'2" Respiratory Rate: 20 bpm SpO2: 96% Tempera ture: 36.9 (C) / 98.5 (F) Weight: 194 lbs 02/12/2016 Blood Pressure 1: 126/78 Code: 8480-6 BMI: 31.8 Code: 60013-7 Heart Rate 1: 60 bpm Height: 5'2" Respiratory Rate: 24 bpm SpO2: 96% Tempera ture: 36.2 (C) / 97.1 (F) Weight: 174 lbs 01/25/2016 Blood Pressure 1: 128/78 Code: 8480-6 BMI: 31.6 Code: 29292-6 Heart Rate 1: 76 bpm Height: 5'2" Respiratory Rate: 20 bpm SpO2: 98% Tempera ture: 36.5 (C) / 97.7 (F) Weight: 173 lbs 10/01/2015 Blood Pressure 1: 108/58 Code: 8480-6 BMI: 32.9 Code: 41878-6 Heart Rate 1: 62 bpm Height: 5'2" Respiratory Rate: 20 bpm SpO2: 98% Tempera ture: 36.2 (C) / 97.1 (F) Weight: 180 lbs 08/04/2015 Blood Pressure 1: 126/78 Code: 8480-6 BMI: 33.8 Code: 31148-8 Heart Rate 1: 72 bpm Height: 5'2" Respiratory Rate: 20 bpm Temperature: 36 .9 (C) / 98.5 (F) Weight: 185 lbs 05/27/2015 Blood Pressure 1: 132/80 Code: 8480-6 BMI: 36.2 Code: 20551-1 Heart Rate 1: 56 bpm Height: 5'2" Respiratory Rate: 20 bpm Temperature: 37 .0 (C) / 98.6 (F) Weight: 198 lbs 03/10/2015 Blood Pressure 1: 136/82 Code: 8480-6 BMI: 36.2 Code: 78371-0 Heart Rate 1: 88 bpm Height: 5'2" Respiratory Rate: 20 bpm Temperature: 37 .0 (C) / 98.6 (F) Weight: 198 lbs 06/30/2014 Blood Pressure 1: 124/78 Code: 8480-6 BMI: 35.8 Code: 98370-3 Heart Rate 1: 84 bpm Height: 5'2" Respiratory Rate: 20 bpm Temperature: 36 .8 (C) / 98.2 (F) Weight: 196 lbs 08/12/2013 Blood Pressure 1: 114/72 Code: 8480-6 BMI: 35.8 Code: 78128-3 Heart Rate 1: 80 bpm Height: 5'2" [...] 1: 132/86 Code: 8480-6 BMI: 34.9 Code: 06057-3 Heart Rate 1: 72 bpm Height: 5'2" Respiratory Rate: 20 bpm Temperature: 36 .9 (C) / 98.4 (F) Weight: 191 lbs 11/29/2012 Blood Pressure 1: 126/82 Code: 8480-6 BMI: 34.4 Code: 76257-4 Heart Rate 1: 84 bpm Height: 5'2" Respiratory Rate: 20 bpm Temperature: 36 .7 (C) / 98.0 (F) Weight: 188 lbs 11/12/2012 Blood Pressure 1: 110/62 Code: 8480-6 BMI: 34.8 Code: 13068-9 Heart Rate 1: 64 bpm Height: 5'2" Temperature: 36.7 (C) / 98.1 (F) Weight: 190 lbs 07/30/2012 Blood Pressure 1: 124/82 Code: 8480-6 BMI: 36.0 Code: 33419-6 Heart Rate 1: 84 bpm Height: 5'2" Respiratory Rate: 20 bpm Temperature: 36 .5 (C) / 97.7 (F) Weight: 197 lbs 06/04/2012 Blood Pressure 1: 118/70 Code: 8480-6 BMI: 36.2 Code: 09088-8 Heart Rate 1: 64 bpm Height: 5'2" Temperature: 37.1 (C) / 98.7 (F) Weight: 198 lbs 12/21/2011 Blood Pressure 1: 132/80 Code: 8480-6 BMI: 33.3 Code: 15194-3 Heart Rate 1: 64 bpm Height: 5'2" Respiratory Rate: 20 bpm Temperature: 36 .6 (C) / 97.8 (F) Weight: 182 lbs 10/07/2011 Blood Pressure 1: 128/72 Code: 8480-6 BMI: 34.4 Code: 65396-8 Heart Rate 1: 80 bpm Height: 5'2" Respiratory Rate: 20 bpm Temperature: 36 .8 (C) / 98.2 (F) Weight: 188 lbs 09/05/2011 Blood Pressure 1: 106/72 Code: 8480-6 BMI: 33.3 Code: 50490-6 Heart Rate 1: 76 bpm Height: 5'2" Respiratory Rate: 20 bpm Temperature: 36 .6 (C) / 97.9 (F) Weight: 182 lbs 04/28/2011 Blood Pressure 1: 110/70 Code: 8480-6 BMI: 34.4 Code: 38524-7 Heart Rate 1: 60 bpm Height: 5'2" Temperature: 37.0 (C) / 98.6 (F) Weight: 188 lbs 04/13/2011 Blood Pressure 1: 106/84 Code: 8480-6 BMI: 34.4 Code: 05977-9 Heart Rate 1: 80 bpm Height: 5'2" Respiratory Rate: 20 bpm Temperature: 36 .6 (C) / 97.8 (F) Weight: 188 lbs 02/04/2011 Blood Pressure 1: 108/76 Code: 8480-6 BMI: 33.7 Code: 73936-1 Heart Rate 1: 74 bpm Height: 5'2" Weight: 184 lbs 12/06/2010 Blood Pressure 1: 120/72 Code: 8480-6 BMI: 33.3 Code: 59768-2 Heart Rate 1: 76 bpm Height: 5'2" [...] 1: 118/66 Code: 8480-6 BMI: 32.6 Code: 30807-8 Heart Rate 1: 68 bpm Height: 5'2" Temperature: 36.7 (C) / 98.1 (F) Weight: 178 lbs 09/01/2009 Blood Pressure 1: 118/76 Code: 8480-6 BMI: 34.6 Code: 26226-5 Heart Rate 1: 76 bpm Height: 5'2" [...] 02/06/10 sinusitis 02/03/2010 follow up 01/27/2010 from [facility] ER-dx w ith UTI/migraine and given medications but hasn't filled anything yet headache 01/25/2010 shaking lab draw 12/09/2009 well woman exam (40-65 years) 12/08/2009 back pain 09/01/2009 low back pain Encounters Encounter Performer Location Codes Date () OFFICE/OUTPATIENT VISIT EST Diagnosis: Essential (primary) hypertension[ICD10: I10] Diagnosis: Encounter for therapeutic drug level monitoring[ICD10: Z51.81] Silvia NARANJO CPT-4: 51498 01/15/2019 ([id number]) OFFICE/OUTPATIENT VISIT EST Diagnosis: Acute bronchitis, unspecified[ICD10: J20.9] Diagnosis: Acute recurrent maxillary sinusitis[ICD10: J01.01] Nicol ANDERS [employer] [facility] CPT-4: 67162 07/20/2018 ([id number]) NURSE/OUTPATIENT VISIT EST Diagnosis: Encounter for general adult medical examination without abnormal findings[ICD10: Z00.00] Diagnosis: Mixed hyperlipidemia[ICD10: E78.2] Caren YOUNG Evelyn COBIAN [employer] [facility] CPT-4: 32239 06/29/2018 ([id number]) PREV VISIT EST AGE 40-64 Diagnosis: Encounter for general adult medical examination without abnormal findings[ICD10: Z00.00] Diagnosis: Encounter for screening mammogram for malignant neoplasm of breast[ICD10: Z12.31] Diagnosis: Essential (primary) hypertension[ICD10: I10] Diagnosis: Migraine with aura, not intractable, without status migrainosus[ICD10: G43.109] Diagnosis: VACCINE FOR TDAP[ICD10: Z23] Caren GARBERLINE Evelyn COBIAN [employer] [facility] CPT-4: 59493 06/11/2018 ([id number]) PREV VISIT EST AGE 40-64 Diagnosis: Encounter [...] unspecified joint[ICD10: M25.50] Caren CHAUDHARY Evelyn ANDERS [employer] [facility] CPT-4: 76171 04/05/2017 ([id number]) OFFICE/OUTPATIENT VISIT EST Diagnosis: Acute upper respiratory infection, unspecified[ICD10: J06.9] Diagnosis: Acute maxillary sinusitis, unspecified[ICD10: J01.00] Chiara ANDERS DO [facility] CPT-4: 60248 02/12/2016 ([id number]) OFFICE/OUTPATIENT VISIT EST Diagnosis: Acute upper respiratory infection, unspecified[ICD10: J06.9] Diagnosis: Acute maxillary sinusitis, unspecified[ICD10: J01.00] Chiara ANDESR DO [facility] CPT-4: 78403 01/25/2016 ([id number]) OFFICE/OUTPATIENT VISIT EST Diagnosis: Urinary tract infection, site not specified[ICD10: N39.0] Chiara ANDERS DO [facility] CPT-4: 23042 10/01/2015 ([id number]) PREV VISIT EST AGE 40-64 Diagnosis: Encounter for gynecological examination (general) (routine) without abnormal findings[ICD10: Z01.419] Diagnosis: Encounter for general adult medical examination without abnormal findings[ICD10: Z00.00] Diagnosis: Migraine, unspecified, not intractable, without status migrainosus[ICD10: G43.909] Diagnosis: Essential (primary) hypertension[ICD10: I10] Caren ANDERS Re[employer]er [facility] CPT-4: 88576 08/04/2015 ([id number]) OFFICE/OUTPATIENT VISIT EST Diagnosis: Menopausal and female climacteric states[ICD10: N95.1] Diagnosis: Dysuria[ICD10: R30.0] Caren ANDERS [employer] [facility] CPT-4: 40736 05/27/2015 OFFICE/OUTPATIENT VISIT EST Diagnosis: Persistent migraine 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 cerebral infarction, intractable, with status migrainosus[ICD10: G43.511] Diagnosis: Unspecified convulsions[ICD10: R56.9] Caren ANDERS [employer] [facility] CPT-4: 56177 03/10/2015 ([id number]) OFFICE/OUTPATIENT VISIT EST Diagnosis: HYPERLIPIDEMIA NEC/NOS[ICD9: 272.4] Diagnosis: HYPERTENSION[ICD9: 401.9] Diagnosis: MALAISE AND FATIGUE[ICD9: 780.79] Diagnosis: ANEMIA NOS[ICD9: 285.9] Caren TA [facility] CPT-4: 89293 07/29/2014 ([id number]) PREV VISIT EST AGE 40-64 Diagnosis: ROUTINE MEDICAL EXAM[ICD9: V70.0] Diagnosis: HYPERTENSION[ICD9: 401.9] Diagnosis: MIGRAINE NOS/NOT INTRCBL[ICD9: 346.90] Diagnosis: GERD[ICD9: 530.81] Caren Robertelviscara ACEVESCAREN MpRajni [facility] CPT-4: 36980 06/30/2014 ([id number]) OFFICE/OUTPATIENT VISIT EST Diagnosis: ALLERGIC RHINITIS[ICD9: 477.9] Diagnosis: DERMATITIS NOS[ICD9: 692.9] Caren Robertdinh CHAUDHARY MpRajni ARANGO [facility] CPT-4: 18247 08/12/2013 OFFICE/OUTPATIENT VISIT EST Diagnosis: HEMATURIA NOS[ICD9: 599.70] Diagnosis: COUGH[ICD9: 786.2] Diagnosis: BRONCHITIS, ACUTE[ICD9: 466.0] Diagnosis: URINARY TRACT INFECTION[ICD9: 599.0] Lyndsey MichelleMartha ACEVESQUE MOSHE Rivas [facility] CPT-4: 11440 05/31/2013 OFFICE/OUTPATIENT VISIT EST Diagnosis: COUGH[ICD9: 786.2] Diagnosis: SINUSITIS, ACUTE[ICD9: 461.9] Diagnosis: FEBRILE ILLNESS[ICD9: 780.60] Lyndsey MichelleMartha CHAUDHARY MpRajni [facility] CPT-4: 12761 05/27/2013 ([id number]) OFFICE/OUTPATIENT VISIT EST Diagnosis: DERMATITIS NOS[ICD9: 692.9] Diagnosis: Tinea cruris[ICD9: 110.3] [facility] CPT-4: 15274 02/26/2013 OFFICE/OUTPATIENT VISIT EST Diagnosis: Rash[ICD9: 782.1] Anni [facility] T-4: 52857 11/29/2012 OFFICE/OUTPATIENT VISIT EST Diagnosis: COUGH[ICD9: 786.2] Diagnosis: SINUSITIS, ACUTE[ICD9: 461.9] Diagnosis: PHARYNGITIS, ACUTE[ICD9: 462] Caren Rivas [facility] CPT-4: 55126 11/12/2012 OFFICE/OUTPATIENT VISIT EST Diagnosis: COUGH[ICD9: 786.2] Diagnosis: SINUSITIS, ACUTE[ICD9: 461.9] Diagnosis: Myalgia[ICD9: 729.1] Caren ANDERS [facility] CPT-4: 05752 07/30/2012 ([id number]) OFFICE/OUTPATIENT VISIT EST Diagnosis: JOINT PAIN-UNSPEC[ICD9: 719.40] Diagnosis: Rash and nonspecific skin eruption[ICD9: 782.1] Caren [facility] CPT-4: 80207 06/05/2012 OFFICE/OUTPATIENT VISIT EST Diagnosis: Rash[ICD9: 782.1] Diagnosis: Joint pain[ICD9: 719.40] Caren FELIX [facility] CPT-4: 42952 06/04/2012 ([id number]) PREV VISIT EST AGE 40-64 Diagnosis: ROUTINE GYNE EXAM[ICD9: V72.31] Diagnosis: ROUTINE MEDICAL EXAM[ICD9: V70.0] Diagnosis: MIGRAINE NOS/NOT INTRCBL[ICD9: 346.90] Caren COBIANLONG [facility] CPT-4: 00500 12/21/2011 OFFICE/OUTPATIENT VISIT EST Diagnosis: Hemorrhoid[ICD9: 455.6] Diagnosis: Constipation[ICD9: 564.00] Diagnosis: Rash[ICD9: 782.1] Caren COBIANLONG [facility] CPT-4: 94693 10/07/2011 OFFICE/OUTPATIENT VISIT EST Diagnosis: HYPERTENSION[ICD9: 401.9] Diagnosis: MIGRAINE NOS/NOT INTRCBL[ICD9: 346.90] Diagnosis: DIZZINESS/VERTIGO[ICD9: 780.4] Diagnosis: EUSTACHIAN TUBE DYSFUNCTION[ICD9: 381.81] Diagnosis: Plantar warts[ICD9: 078.12] Caren Clay [facility] CPT-4: 68526 09/05/2011 OFFICE/OUTPATIENT VISIT EST Diagnosis: SINUSITIS, ACUTE[ICD9: 461.9] Diagnosis: COUGH[ICD9: 786.2] Diagnosis: PHARYNGITIS, ACUTE[ICD9: 462] Diagnosis: DIARRHEA[ICD9: 787.91] Caren COBIANE R DO [facility] CPT-4: 68643 04/28/2011 OFFICE/OUTPATIENT VISIT EST Diagnosis: Finger pain[ICD9: 729.5] Diagnosis: Nasal pain[ICD9: 478.19] Diagnosis: MIGRAINE NOS/NOT INTRCBL[ICD9: 346.90] Diagnosis: Metrorrhagia[ICD9: 626.6] Caren CHAUDHARY SRajni ORE NDER DO [facility] CPT-4: 76841 04/13/2011 OFFICE/OUTPATIENT VISIT EST Diagnosis: Frequent urination[ICD9: 788.41] Caren CHAUDHARY SRajni ORENDER DO [facility] CPT-4: 22360 02/04/2011 PREV VISIT EST AGE 40-64 Anni Patel O [facility] CPT-4: 72372 12/06/2010 SPECIMEN HANDLING Anni CHAUDHARY S. ORENDER DO [facility] CPT-4: 72574 12/06/2010 ([id number]) OFFICE/OUTPATIENT VISIT, EST Caren [facility] CPT-4: 08477 04/14/2010 ([id number]) OFFICE/OUTPATIENT VISIT, EST Caren ACEVES [facility] CPT-4: 28688 02/16/2010 ([id number]) OFFICE/OUTPATIENT VISIT, EST Caren [facility] CPT-4: 63139 02/03/2010 ([id number]) OFFICE/OUTPATIENT VISIT, EST Caren [facility] CPT-4: 91902 01/27/2010 ([id number]) OFFICE/OUTPATIENT VISIT, EST Caren [facility] CPT-4: 91237 01/25/2010 ([id number]) PREV VISIT, EST, AGE 40-64 Anni [facility]ARY [facility] CPT-4: 98870 12/08/2009 ([id number]) OFFICE/OUTPATIENT VISIT, EST Caren Chago ANDERS DO [facility] CPT-4: 11976 09/01/2009 Plan of Care Planned Activity Notes Codes Status Date Visit Diagnosis Plan: Essential (primary) hypertension Discussion: stable on current medications. rtc 6 months for annual or sooner if needed. will recheck labs at annual. ICD-9 : 401.9 ICD-10 : I10 01/15/2019 Appointment: Silvia Ramírez [address] FOLLOW UP 01/15/2019 Patient Education: High [...] : J20.9 07/20/2018 Appointment: Nicol Arroyo [address] 07/20/2018 Patient Education: prednisone- [employer] Coupon [id number] Completed 07/20/2018 Patient Education: [facility] - Saving AutoInj - Ventolin HFA - 18-64 - Dynamic Portal ID Completed 07/20/2018 Patient Education: azithromycin- [employer] Coupon [id number] Completed 07/20/2018 Appointment: [facility] [address] [id number] [facility] 06/29/2018 Visit Diagnosis Plan: Encounter for [...] : Z00.00 06/11/2018 Appointment: Caren Anders WPtel: [address] [place] [address] Annual Well Visit 06/11/2018 Patient Education: Valtrex- [employer] Coupon [id number] Completed 06/11/2018 Patient Education: mupirocin calcium- [employer] Coupon [id number] Completed 06/11/2018 Visit Diagnosis Plan: Encounter for [...] : Z00.00 04/05/2017 Appointment: Caren Anders WPtel: [address] [place] [address] Annual Well Visit 04/05/2017 Patient Education: Patient Medication Summary Completed 04/05/2017 Care Plan: Referral Order SNOMED-CT : 30 [id number] Pending 04/05/2017 Patient Education: Patient Medication Summary Completed 08/02/2016 Care Plan: MAMMOGRAM SCREENING LOINC : 2 6347-5 Pending 08/02/2016 Visit Plan: Injection as above Rx for le vaquin - pt reports she tolerates well Continue supportive care Follow up PRN 02/12/2016 Appointment: Chiara Phelan [address] [place] [address] 02/10 confirmed~sl ACUTE ILLNESS 02/12/2016 Patient Education: Patient Medication Summary Completed 02/12/2016 Visit Plan: Rxs as above OTC meds review ed - avoid decongestants Rest, fluids, vicks, humidifier, etc Follow up PRN 01/25/2016 [id number] [facility] 01/25/2016 Patient Education: Patient Medication Summary Completed 01/25/2016 Visit Plan: Office dip abnormal Culture pending Rx as above Supportive care reviewed Follow up PRN 10/01/2015 Appointment: Chiara Phelan [address] [facility] ACUTE ILLNESS 10/01/2015 Patient Education: Patient Medication Summary Completed 10/01/2015 Visit Plan: Obtain lab results Pap done Mammogram ordered Patient awaiting on Dr. Cuello to restart botox for migraines 08/04/2015 Appointment: Caren Anders WPtel: [address] [place] [address] 08/02confirmed-sp Annual Well Visit 08/04/2015 Patient Education: Patient Medication Summary Completed 08/04/2015 Care Plan: MAMMOGRAM SCREENING LOINC : 2 6347-5 Ordered 08/04/2015 Patient Education: Patient Medication Summary Completed 07/29/2015 Care Plan: CBC Ordered 07/29/2015 Visit Plan: Discussed likely perimenopau se Will observe through July and then at [facility] with fasting lab including hormone levels If bleeding returns will proceed with pelvic US Check into chiropractor for manipulation for right low back/hip pain 05/27/2015 Appointment: Caren Anders WPtel: [address] [place], [place] [phone] 05/26/15 vm cn 05/26/15 appt confirmed cn ACUTE ILLNESS 05/27/2015 Patient Education: Patient Medication Summary Completed 05/27/2015 Referral: Ignacio Esposito WPtel: [facility] [address] [id number] [place] Referral Initiated 04/07/2015 Referral: aCren Anders WPtel: [address] [place], [place] [phone] 03/26/15 Arrival time 9:30 am Procedure 9:45 am. @ [facility] [address] Come sleep deprived(4 hours or less) clean hair, no product in hair, no caffeen Initiated 03/26/2015 Visit Plan: Toradol now with compazine p o when gets home Proceed with updated EEG/neurology evaluation--discussed may need to go on antiseizure meds and drop out of migraine study No driving for 6mos Discuss[address] with Dr. Cuello at [facility] in [place]--he wants to see her in next 1-2weeks 03/10/2015 Appointment: Caren Anders WPtel: [address] [place] [address] ACUTE ILLNESS 03/10/2015 Patient Education: Patient Medication Summary Completed 03/10/2015 Appointment: Caren Anders WPtel: [address] [place] [address] 07/29/2014 Patient Education: Patient Medication Summary Completed 07/29/2014 Appointment: Caren Anders WPtel: [address] [place] [address] Annual Well Visit 06/30/2014 Patient Education: Patient Medication Summary Completed 06/30/2014 Appointment: Caren Anders WPtel: [address] [place] [address] Annual Well Visit 06/18/2014 Appointment: Caren Anders WPtel: [address] [place] [address] ACUTE ILLNESS 06/03/2014 Appointment: Lyndsey Thorpe WPtel: [address] [place], [place] [phone] 02/05 ACUTE ILLNESS 02/06/2014 Visit Plan: Benadryl 25mg q HS Claritin 10mg q AM Prednisone for 1week Call in 1week on cough and rash 08/12/2013 Appointment: Caren Anders WPtel: [address] [place], [place] [phone] 08/09 FOLLOW UP 08/12/2013 Patient Education: Patient Medication Summary Completed 08/12/2013 Appointment: IlaNevillesa De Los Santos WPtel: [address] [place], [place] [phone] ACUTE ILLNESS 05/31/2013 Patient Education: Patient Medication Summary Completed 05/31/2013 Appointment: IlaNevillesa De Los Santos WPtel: [address] [place], [place] [phone] ACUTE ILLNESS 05/27/2013 Patient Education: Patient Medication Summary Completed 05/27/2013 Appointment: Caren Anders WPtel: [address] [place], [place] [phone] 02/25 ACUTE ILLNESS 02/26/2013 Patient Education: Patient [...] Mycoplasma infection) 11/29/2012 Appointment: Anni Brennan WPtel: [address] [place], [place] [phone] FOLLOW UP 11/29/2012 Patient Education: Patient Medication Summary Completed 11/29/2012 Appointment: Anni Brennan WPtel: [address] [place], [place] [phone] ACUTE ILLNESS 11/12/2012 Patient Education: Patient Medication Summary Completed 11/12/2012 Visit Plan: Azithromyacin and medrol dos e pack. Will focus on hydration and rest. Pt. will notify if symptoms worsen or do not improve. 07/30/2012 Appointment: Anni Brennan WPtel: [address] [place], [place] [phone] ACUTE ILLNESS 07/30/2012 Patient Education: Patient Medication Summary Completed 07/30/2012 Appointment: Caren Anders WPtel: [address] [place], [place] [phone] LAB 06/05/2012 Patient Education: Patient Medication Summary Completed 06/05/2012 Visit Plan: fsating lab: CBC, CMP, TSH, Free T4 and Lipid with FERDINAND and RA. Nystatin to rash. Written RX for Medrol dose pack. Discussed that pt. will notify if no improvement with topical Nystatin. Pt. will use Benadryl at bedtime and cool pack to help refrain from scratching. 06/04/2012 Appointment: Anni Brennan WPtel: [address] [place] [address] ACUTE ILLNESS 06/04/2012 Patient Education: Patient Medication Summary Completed 06/04/2012 Visit Plan: Pap done Mammo ordered Pt wong s started botox for Migraines--next shots end of this month Fasting lab in 12/21/2011 Appointment: Caren Anders WPtel: [address] [place] [address] PAP 12/21/2011 Patient Education: Patient Medication Summary Completed 12/21/2011 Visit Plan: Encouraged fluids and contin ued use of stool softener. Pt. reports long standing concerns with constipation. Discussed that will likely proceed with colonoscopy. Referral to Dr. Long. Will apply betamethasone to rash and use rectal foam and topical dibucaine. 10/07/2011 Appointment: Anni Brennan WPtel: [address] [place], [place] [phone] ACUTE ILLNESS 10/07/2011 Patient Education: Patient [...] for now 09/05/2011 Appointment: Caren Anders WPtel: [address] [place], [place] [phone] FOLLOW UP 09/05/2011 Patient Education: Patient Medication Summary Completed 09/05/2011 Visit Plan: imodium. Discussed the impor tance of hydration. Phoned Cefuroxime and codeine/guiaf into [facility]. Pt. will notify if symptoms worsen. 04/28/2011 Appointment: Anni Brennan WPtel: [address] [place] [address] ACUTE ILLNESS 04/28/2011 Patient Education: Patient Medication Summary Completed 04/28/2011 Visit Plan: Use Aleve BID Observe nose a nd finger Check Chem 7, estradiol, FSH, LH, TSH 04/13/2011 Appointment: Caren Anders WPtel: [address] [place], [place] [phone] ACUTE ILLNESS 04/13/2011 Patient Education: Patient Medication Summary Completed 04/13/2011 Appointment: Anni Brennan WPtel: [address] [place] [address] ACUTE ILLNESS 02/04/2011 Patient Education: Patient Medication Summary Completed 02/04/2011 Appointment: Caren Anders WPtel: [address] [place], [place] [phone] LAB 12/21/2010 Patient Education: Patient Medication Summary Completed 12/21/2010 Appointment: Anni Brennan WPtel: [address] [place], [place] [phone] PAP 12/06/2010 Patient Education: Patient Medication [...] colon cancer 04/14/2010 Appointment: Caren Anders WPtel: [address] [place], [place] [phone] FOLLOW UP 04/14/2010 Patient Education: Patient Medication Summary Completed 04/14/2010 Appointment: Caren Anders WPtel: [address] [place], [place] [phone] LAB 03/17/2010 Visit Plan: Increase Topamax to 50mg BID Cont Flexeril See Neurology next week 02/16/2010 Appointment: Caren Anders WPtel: [address] [place] [address] FOLLOW UP 02/16/2010 Patient Education: Patient Medication Summary Completed 02/16/2010 Visit Plan: Pt will seek re-eval if symp toms worsen. 02/03/2010 Appointment: Anni Brennan WPtel: [address] [place] [address] ACUTE ILLNESS 02/03/2010 Patient Education: Patient Medication Summary Completed 02/03/2010 Visit Plan: Start Topamax for prophylaxi s See Neurology Discussed triggers such as chocolate Start Cipro as ordered May try Midrin and Compazine as ordered Off work rest of week 01/27/2010 Appointment: Caren Anders WPtel: [address] [place] [address] ER Follow UP 01/27/2010 Patient Education: Patient Medication Summary Completed 01/27/2010 Visit Plan: Check CT head Suspect comple x migraine vs TIA--esequiel await CT results 01/25/2010 Appointment: Caren Anders WPtel: [address] [place] [address] ACUTE ILLNESS 01/25/2010 Patient Education: Patient Medication Summary Completed 01/25/2010 Appointment: Caren Anders WPtel: [address] [place] [address] LAB 12/09/2009 Patient Education: Patient Medication Summary Completed 12/09/2009 Appointment: Anni Brennan WPtel: [address] [place] [address] 12/08/2009 Patient Education: Patient Medication Summary Completed 12/08/2009 Appointment: Caren Anders WPtel: [address] [place] [address] ACUTE ILLNESS 09/01/2009 Patient Education: Patient Medication Summary Completed 09/01/2009 Appointment: Caren Anders WPtel: [phone] [id number] [place] LAB 08/26/2009 Patient Education: Patient Medication Summary Completed 08/26/2009 Referral: Partha Long WPtel: [address] [id number] [place] Referral sent. Dr. Coburn's office will call patient to miek sin. Completed Instructions Comment . Injection as [...] Will observe through July and then at [facility] with fasting lab including hormone levels If bleeding returns will proceed with pelvic US Check into chiropractor for manipulation for right low back/hip pain . Toradol now with compazine po when get s home Proceed with updated EEG/neurology evaluation--discussed may need to go on antiseizure meds and drop out of migraine study No driving for 6mos Discuss[address] Dr[address] Cuello at clinic in [place]--he wants to see her in next 1-2weeks [...]
--- OUTSIDE RECORDS SUMMARY | 2019-10-11 18:32 | XMS REPORT | CCD ---
Author Author Claudia Anders D.O. Organization [facility] Address [address] [place] [address] Phone Care Team Providers Care Bee Producer Name Role Phone Caren Anders D.O., PP Unavailable CCM Unavailable Summary Purpose Interface Exchange Insurance Providers Payer name Policy type / Coverage type Covered democrat ID Effective Begin Date Effective End Date Blue Cross Blue Shield Blue Cross/Blue Shield [id number] Unknown Family history Father Diagnosis Age At Onset Congestive heart failure Unknown Cancer Unknown Diabetes mellitus Type 2 Unknown Social History Social History Element Codes Description Effective Dates Tobacco history SNOMED CT: 7395333 Former smoker 02/03/2015 Allergies, Adverse Reactions, Alerts [...] Start Date Stop Date Status Fill Instructions Naprosyn 500 mg tablet RxNorm: 025315 TAKE ONE TABLET BY MOUTH TWO TIMES A DAY 05/16/2019 No Stop Date Active atenolol 25 mg tablet RxNorm: 726441 Tablet(s) Oral PATEL E ONE TABLET BY MOUTH DAILY, 02/04/2019 06/03/2019 Active Maxalt 10 mg tablet RxNorm: 172039 TAKE ONE TABLET BY M OUTH AT HEADACHE ONSET. MAY REPEAT IN 2 HOURS IF HEADACHE REMAINS. MAX OF 2 TABLETS IN 24 HOURS 01/17/2019 02/12/2019 Inactive Zantac 300 mg tablet RxNorm: 666240 TAKE ONE TABLET BY MOUTH EVERY NIGHT AT BEDTIME 01/15/2019 03/15/2019 Inactive atenolol 25 mg tablet RxNorm: 384180 Tablet(s) TAKE ONE TABLET BY MOUTH DAILY, NEEDS APPT. BEFORE FURTHER REFILLS 01/08/2019 02/03/2019 Inactive atenolol 25 mg tablet RxNorm: 714367 Tablet(s) TAKE ONE TABLET BY MOUTH DAILY, NEEDS APPT. BEFORE FURTHER REFILLS 12/31/2018 02/04/2019 Inactive atenolol 25 mg tablet RxNorm: 405065 TAKE ONE TABLET BY MOUTH DAILY, NEEDS APPT. BEFORE FURTHER REFILLS 12/14/2018 12/31/2018 Inactive tizanidine 4 mg tablet RxNorm: 541727 TAKE ONE TABLET B Y MOUTH EVERY 8 HOURS NEEDED FOR MUSCLE SPASMS 11/16/2018 12/25/2018 Inactive Naprosyn 500 mg tablet RxNorm: 757722 1 Tablet(s) PO BID 10/01/2018 0 05/15/2019 Inactive atenolol 25 mg tablet RxNorm: 017511 Tablet(s) TAKE ONE TABLET BY MOUTH DAILY. 10/01/2018 12/13/2018 Inactive Maxalt 10 mg tablet RxNorm: 190188 1 Tablet(s) PO at he adache onset. May repeat in 2 hours if headache remains. Max of 2/24hr 10/01/2018 11/29/2018 In active atenolol 25 mg tablet RxNorm: 924933 TAKE ONE TABLET BY MOUTH DAILY. NEED APPOINTMENT BEFORE FURTHER REFILLS. 09/24/2018 09/30/2018 Inactive atenolol 25 mg tablet RxNorm: 796357 TAKE ONE TABLET BY MOUTH DAILY, NEEDS APPT. BEFORE FURTHER REFILLS 09/11/2018 09/23/2018 Inactive Naprosyn 500 mg tablet RxNorm: 321597 1 Tablet(s) PO BI D Due for annual labs and appointment 09/11/2018 09/30/2018 Inactive atenolol 25 mg tablet RxNorm: 116981 TAKE ONE TABLET BY MOUTH DAILY, NEEDS APPT. BEFORE FURTHER REFILLS 08/29/2018 09/10/2018 Inactive doxycycline hyclate 100 mg tablet RxNorm: 2022556 1 Tablet(s) PO BI D 07/27/2018 08/05/2018 Inactive doxycycline hyclate 100 mg tablet RxNorm: 1742643 1 Tablet(s) PO BI D 07/27/2018 07/26/2018 Inactive Ventolin HFA 90 mcg/actuation aerosol inhaler RxNorm: 4500622 2 Puff(s) INH Q6H 07/20/2018 08/18/2018 Inactive prednisone 20 mg tablet RxNorm: 342871 take 2 tabs for 3 days, then 1 tab for 3 days 07/20/2018 07/25/2018 Inactive azithromycin 250 mg tablet RxNorm: 108164 Take 2 tabs t cate and one tab days 2-5 07/20/2018 07/25/2018 Inactive z-pack atenolol 25 mg tablet RxNorm: 519289 TAKE ONE TABLET BY MOUTH DAILY, NEEDS APPT. BEFORE FURTHER REFILLS 07/13/2018 08/26/2018 Inactive mupirocin 2 % topical cream RxNorm: 235130 Application TOP BID 05/1601/14/2019 Inactive Valtrex 1 gram tablet RxNorm: 791146 1 Tablet(s) PO BID 06/11/2018 Inactive atenolol 25 mg tablet RxNorm: 585581 1 Tablet(s) PO QD NEEDS APPOINTMENT BEFORE FURTHER REFILLS 05/14/2018 07/12/2018 Inactive Naprosyn 500 mg tablet RxNorm: 999058 1 Tablet(s) PO BI D Due for annual labs and appointment 04/12/2018 05/11/2018 Inactive Zantac 300 mg tablet RxNorm: 473644 TAKE ONE TABLET BY MOUTH EVERY NIGHT AT BEDTIME 04/09/2018 07/07/2018 Inactive tizanidine 4 mg tablet RxNorm: 805820 TAKE ONE TABLET B Y MOUTH EVERY 8 HOURS NEEDED FOR MUSCLE SPASMS 02/20/2018 04/20/2018 Inactive Maxalt 10 mg tablet RxNorm: 540614 Tablet(s) TAKE ONE T ABLET BY MOUTH NEEDED FOR HEADACHE 01/09/2018 03/09/2018 Inactive Naprosyn 500 mg tablet RxNorm: 419284 Tablet(s) TAKE ON E TABLET BY MOUTH TWICE A DAY 01/08/2018 04/12/2018 Inactive atenolol 25 mg tablet RxNorm: 272713 1 Tablet(s) PO QD 01/08/2018 Inactive Naprosyn 500 mg tablet RxNorm: 628842 TAKE ONE TABLET BY MOUTH TWICE A DAY 12/10/2017 01/08/2018 Inactive tizanidine 4 mg tablet RxNorm: 335055 1 Tablet(s) PO Q8 H as needed for muscle spasm 11/27/2017 11/26/2017 Inactive Maxalt 10 mg tablet RxNorm: 758325 TAKE ONE TABLET BY M OUTH NEEDED FOR HEADACHE 11/13/2017 01/09/2018 Inactive Naprosyn 500 mg tablet RxNorm: 170168 TAKE ONE TABLET BY MOUTH TWICE A DAY 11/13/2017 12/09/2017 Inactive atenolol 25 mg tablet RxNorm: 999290 1 Tablet(s) PO QD 09/06/2017 Inactive Naprosyn 500 mg tablet RxNorm: 533451 1 Tablet(s) PO BID 09/04/2017 0 11/02/2017 Inactive Maxalt 10 mg tablet RxNorm: 558404 1 Tablet(s) PO as needed for headache 08/07/2017 11/12/2017 Inactive Naprosyn 500 mg tablet RxNorm: 930560 1 Tablet(s) PO BID 07/07/2017 0 09/04/2017 Inactive Naprosyn 500 mg tablet RxNorm: 704465 1 Tablet(s) PO BI D TAKE ONE TABLET BY MOUTH TWICE A DAY 06/08/2017 07/07/2017 Inactive tizanidine 4 mg tablet RxNorm: 473356 1 Tablet(s) PO Q8 H as needed for muscle spasm 05/10/2017 11/27/2017 Inactive atenolol 25 mg tablet RxNorm: 482322 1 Tablet(s) PO QD 05/10/2017 Inactive Maxalt 10 mg tablet RxNorm: 010102 1 Tablet(s) PO as needed for headache 05/10/2017 08/06/2017 Inactive atenolol 25 mg tablet RxNorm: 666873 1 Tablet(s) PO QD LAST REFILL---NEEDS UPDATED LAB AND APPOINTMENT 04/04/2017 05/03/2017 Inactive Zantac 300 mg tablet RxNorm: 631361 Tablet(s) TAKE ONE TABLET BY MOUTH EVERY NIGHT AT BEDTIME 04/03/2017 07/31/2017 Inactive atenolol 25 mg tablet RxNorm: 062900 1 Tablet(s) PO QD LAST REFILL---NEEDS UPDATED LAB AND APPOINTMENT 03/02/2017 04/04/2017 Inactive atenolol 25 mg tablet RxNorm: 688976 1 Tablet(s) PO QD LAST REFILL---NEEDS UPDATED LAB AND APPOINTMENT 02/01/2017 05/10/2017 Inactive Naprosyn 500 mg tablet RxNorm: 660763 1 Tablet(s) PO BI D TAKE ONE TABLET BY MOUTH TWICE A DAY 01/02/2017 06/08/2017 Inactive atenolol 25 mg tablet RxNorm: 123090 1 Tablet(s) PO QD Need Labs and appointment 12/26/2016 02/01/2017 Inactive Naprosyn 500 mg tablet RxNorm: 928109 1 Tablet(s) PO BI D TAKE ONE TABLET BY MOUTH TWICE A DAY 12/05/2016 01/02/2017 Inactive Naprosyn 500 mg tablet RxNorm: 279912 Tablet(s) TAKE ON E TABLET BY MOUTH TWICE A DAY 11/07/2016 12/05/2016 Inactive Naprosyn 500 mg tablet RxNorm: 896675 Tablet(s) TAKE ON E TABLET BY MOUTH TWICE A DAY 10/06/2016 11/07/2016 Inactive Naprosyn 500 mg tablet RxNorm: 776144 TAKE ONE TABLET BY MOUTH TWICE A DAY 09/04/2016 10/03/2016 Inactive Naprosyn 500 mg tablet RxNorm: 257502 TAKE ONE TABLET BY MOUTH TWICE A DAY 07/01/2016 08/29/2016 Inactive Naprosyn 500 mg tablet RxNorm: 149437 TAKE ONE TABLET BY MOUTH TWICE A DAY 04/27/2016 06/25/2016 Inactive Zantac 300 mg tablet RxNorm: 354155 TAKE ONE TABLET BY MOUTH EVERY NIGHT AT BEDTIME 03/09/2016 04/03/2017 Inactive Levaquin 500 mg tablet RxNorm: 884273 1 Tablet(s) PO QD 02/12/2016 Inactive azithromycin 250 mg tablet RxNorm: 676738 2 Tablet(s) P O on day one then 1 tab on days 2-5 01/25/2016 01/24/2016 Inactive Medrol (Camilo) 4 mg tablets in a dose pack RxNorm: 807554 Take as directed 01/25/2016 04/04/2017 Inactive Naprosyn 500 mg tablet RxNorm: 351577 1 Tablet(s) PO BID 01/15/2016 1 06/13/2015 Inactive Brisdelle 7.5 mg capsule RxNorm: 2775255 1 Capsule(s) PO QHS 201504/04/2017 Inactive atenolol 25 mg tablet RxNorm: 131763 TAKE ONE TABLET BY MOUTH DAILY 12/04/2015 12/26/2016 Inactive Maxalt 10 mg tablet RxNorm: 043088 1 Tablet(s) PO as needed for headache 10/05/2015 05/09/2017 Inactive Bactrim DS 800 mg-160 mg tablet RxNorm: 273743 1 Tablet(s) PO BID 0 10/01/2015 10/07/2015 Inactive Zantac 300 mg tablet RxNorm: 391060 Tablet(s) TAKE ONE TABLET BY MOUTH EVERY NIGHT AT BEDTIME 10/01/2015 11/29/2015 Inactive atenolol 25 mg tablet RxNorm: 805219 TAKE ONE TABLET BY MOUTH DAILY 06/09/2015 08/07/2015 Inactive Naprosyn 500 mg tablet RxNorm: 510122 TAKE ONE TABLET BY MOUTH TWICE A DAY 05/29/2015 01/15/2016 Inactive Zantac 300 mg tablet RxNorm: 683758 Tablet(s) TAKE ONE TABLET BY MOUTH EVERY NIGHT AT BEDTIME 03/30/2015 10/01/2015 Inactive Compazine 10 mg tablet RxNorm: 216767 1 Tablet(s) PO TID as nee ded for nausea 03/10/2015 05/26/2015 Inactive Prevacid 30 mg capsule,delayed release RxNorm: 755445 C apsule(s) TAKE ONE CAPSULE BY MOUTH ONCE A DAY 12/19/2014 05/17/2015 Inactive Naprosyn 500 mg tablet RxNorm: 722928 1 Tablet(s) PO BID 12/02/2014 1 Inactive Zantac 300 mg tablet RxNorm: 000634 TAKE ONE TABLET BY MOUTH EVERY NIGHT AT BEDTIME 09/18/2014 03/30/2015 Inactive Naprosyn 500 mg tablet RxNorm: 959784 1 Tablet(s) PO BID 09/04/2014 0 12/02/2014 Inactive atenolol 25 mg tablet RxNorm: 371991 1 Tablet(s) PO QD 07/17/2014 Inactive Zantac 300 mg tablet RxNorm: 790219 1 Tablet(s) PO QHS 06/30/201410/2014 Inactive Lamisil 250 mg tablet RxNorm: 952544 1 Tablet(s) PO QD 06/30/2014 Inactive Treximet 85 mg-500 mg tablet RxNorm: 286579 Tablet(s) PO PRN as needed 06/30/2014 03/09/2015 Inactive Prevacid 30 mg capsule,delayed release RxNorm: 574790 T VI ONE CAPSULE BY MOUTH ONCE A DAY 06/16/2014 12/19/2014 Inactive Treximet 85 mg-500 mg tablet RxNorm: 795283 Tablet(s) PO PRN as needed 06/06/2014 06/29/2014 Inactive Pepcid 20 mg tablet RxNorm: 769076 1 Tablet(s) PO QHS 03/19/201406/15 Inactive [SAVINGS FOR UNINSURED PATIENTS -- BIN:0 60374, PCN: ASPROD1, Group: [id number], ID# [id number], Process claim through Diurnal, for questions: . THIS IS NOT INSURANCE.] atenolol 25 mg tablet RxNorm: 780593 1 Tablet(s) PO QD 01/15/201409/2014 Inactive Pepcid 20 mg tablet RxNorm: 641878 1 Tablet(s) PO QHS 12/23/201312/13 Inactive Pepcid 20 mg tablet RxNorm: 881264 1 Tablet(s) PO QHS 12/23/201309/2013 Inactive [SAVINGS FOR UNINSURED PATIENTS -- BIN:0 70657, PCN: ASPROD1, Group: [id number], ID# [id number], Process claim through Diurnal, for questions: . THIS IS NOT INSURANCE.] Prevacid 30 mg capsule,delayed release RxNorm: 463637 1 Capsule (s) PO QD 12/23/2013 06/15/2014 Inactive [SAVINGS FOR UNINSUR ED PATIENTS -- BIN:[id number], PCN: ASPROD1, Group: [id number], ID# [id number], Process claim through Diurnal, for questions: . THIS IS NOT INSURANCE.] loratadine 10 mg tablet RxNorm: 746988 TAKE ONE TABLET BY MOUTH EVERY MORNING 09/09/2013 04/06/2014 Inactive nystatin-triamcinolone 100,000 unit/g-0.1 % topical cream Rx Norm: 2673842 1 Application TOP QHS to rash 08/22/2013 06/29/2014 Inactive prednisone 20 mg tablet RxNorm: 660101 1 Tablet(s) PO BID 08/12/2013 08/18/2013 Inactive loratadine 10 mg tablet RxNorm: 382105 1 Tablet(s) PO QAM 08/12/2013 09/08/2013 Inactive Treximet 85 mg-500 mg tablet RxNorm: 042620 Tablet(s) PO PRN 201307/21/2013 Inactive atenolol 25 mg tablet RxNorm: 575036 1 Tablet(s) PO QD 07/22/201307/2013 Inactive Prevacid 30 mg capsule,delayed release RxNorm: 450448 1 Capsule (s) PO BID 07/22/2013 12/22/2013 Inactive nitrofurantoin macrocrystal 100 mg capsule RxNorm: 636685 1 Cap violeta(s) PO BID 05/31/2013 06/06/2013 Inactive albuterol sulfate HFA 90 mcg/actuation aerosol inhaler RxNor m: 512703 2 Puff(s) INH QID 05/31/2013 06/13/2013 Inactive azithromycin 250 mg tablet RxNorm: 790767 2 Tablet(s) PO QD 014 06/02/2013 Inactive Prevacid 30 mg capsule,delayed release RxNorm: 991516 1 Capsule (s) PO BID 03/20/2013 07/21/2013 Inactive Lamisil 250 mg tablet RxNorm: 155136 1 Tablet(s) PO QD 02/26/201304/2014 Inactive betamethasone valerate 0.1 % Topical Cream RxNorm: 169899 1 Tom lication TOP BID 11/29/2012 12/12/2012 Inactive Diflucan 100 mg tablet RxNorm: 292013 1 Tablet(s) PO QD 11/29/2012 Inactive nystatin 100,000 unit/gram Topical Powder RxNorm: 663814 1 Gram(s) TOP BID apply to affected areas twice daily 11/29/2012 12/08/2012 Inactive Medrol (Camilo) 4 mg tablets in a dose pack RxNorm: 571145 Tablet(s) PO as directed 11/12/2012 02/25/2013 Inactive Levaquin 750 mg tablet RxNorm: 339272 1 Tablet(s) PO QD antibiotic 11/12/2012 11/21/2012 Inactive Prevacid 30 mg capsule,delayed release RxNorm: 172085 1 Capsule (s) PO BID 09/17/2012 03/15/2013 Inactive azithromycin 250 mg tablet RxNorm: 623308 2 Tablet(s) PO QD 013 08/06/2012 Inactive nystatin 100,000 unit/g Ointment RxNorm: 093634 1 Gram( s) TOP BID apply to affected area twice daily 06/21/2012 06/30/2012 Inactive nystatin 100,000 unit/g Ointment RxNorm: 307682 1 Gram( s) TOP BID apply to affected area twice daily 06/04/2012 06/13/2012 Inactive Prevacid 30 mg capsule,delayed release RxNorm: 842698 1 Capsule (s) PO BID 03/01/2012 08/27/2012 Inactive Omnaris 50 mcg Nasal Jefferson RxNorm: 461040 2 Jefferson NASAL QD each nostril 12/21/2011 03/09/2015 Inactive betamethasone valerate 0.1 % Topical Cream RxNorm: 786962 1 Tom lication TOP BID 10/07/2011 10/20/2011 Inactive dibucaine 1 % Rectal Ointment RxNorm: 773610 1 RTL TID 10/07/2011 Inactive Proctofoam 1 % Topical Foam RxNorm: 626312 1 TOP BID 10/07/201107/2011 Inactive Treximet 85 mg-500 mg Tab RxNorm: 842935 Tablet(s) PO T vi 1 at headache onset and may repeat 1 in two hours if needed 09/05/2011 No Stop Date Active Prevacid 30 mg capsule,delayed release RxNorm: 543204 1 Capsule (s) PO BID 08/30/2011 02/25/2012 Inactive Flexeril 5 mg tablet RxNorm: 563794 1-2 Tablet(s) PO QHS 08/05/2011 0 06/29/2014 Inactive prn spasm cefuroxime axetil 500 mg Tab RxNorm: 425764 1 Tablet(s) PO BID 04/1405/07/2011 Inactive Flexeril 5 mg Tab RxNorm: 345168 1-2 Tablet(s) PO QHS 04/20/201107/14 Inactive prn spasm Prevacid 30 mg Capsule, delayed release RxNorm: 919029 1 Capsul e(s) PO BID 02/23/2011 08/30/2011 Inactive Prevacid 30 mg Cap RxNorm: 917093 1 Capsule(s) PO QD 02/21/201102/22 Inactive Pyridium 100 mg Tab RxNorm: 1826026 1 Tablet(s) PO TID 02/04/2011 Inactive will turn urine orange/red. Septra DS 800 mg-160 mg Tab RxNorm: 255162 1 Tablet(s) PO BID 02/0402/08/2011 Inactive lisinopril 10 mg Tab RxNorm: 591549 1 Tablet(s) PO QD 12/06/201012/14 Inactive amitriptyline 10 mg Tab RxNorm: 901523 2 Tablet(s) PO QD 12/06/2010 0 01/04/2011 Inactive Treximet 85 mg-500 mg Tab RxNorm: 149885 1 Tablet(s) PO 12/02/2010 Inactive at WONG onset, may repeat i po in 2hrs if WONG remains lisinopril 20 mg Tab RxNorm: 904366 1 Tablet(s) PO QD 09/10/201011/13 Inactive Prevacid 30 mg Cap RxNorm: 977850 1 Capsule(s) PO BID 08/09/201002/12 Inactive Flexeril 5 mg Tab RxNorm: 841596 1-2 Tablet(s) PO QHS prn spasm 05/200904/20/2011 Inactive Topamax 50 mg Tab RxNorm: 679638 1 Tablet(s) PO BID 02/16/20102009 Inactive Topamax 50 mg Tab RxNorm: 741702 1/2 Tablet(s) PO QHS for 1wk t hen 1 po QHS 02/15/2010 02/15/2010 Inactive Cefdinir 300 mg Cap RxNorm: 930932 1 Capsule(s) PO BID One tablet PO twice daily for 10 days. 02/03/2010 02/12/2010 Inactive Topamax 50 mg Tab RxNorm: 859501 1/2 Tablet(s) PO QHS for 1wk t hen 1 po QHS 01/27/2010 02/14/2010 Inactive Flexeril 5 mg Tab RxNorm: 255537 1 Tablet(s) PO TID prn spasm 01/2502/15/2010 Inactive Macrobid 100 mg Cap RxNorm: 0535760 1 Capsule(s) PO BID 09/01/2009 Inactive Prevacid 30 mg Cap RxNorm: 383816 1 Capsule(s) PO BID 09/01/200909/12 Inactive Flexeril 5 mg Tab RxNorm: 696936 1 Tablet(s) PO TID prn spasm 09/0109/30/2009 Inactive lisinopril 20 mg Tab RxNorm: 491604 1 Tablet(s) PO QD 08/31/200908/14 Inactive atenolol 25 mg Tab RxNorm: 199319 1 Tablet(s) PO QD No Start Date Inactive magnesium 100 mg tablet RxNorm: 1 Tablet(s) PO QD No Start Date Active Calcium with Vitamin D 600 mg-400 unit Tab RxNorm: 420323 1 Tab let(s) PO QD No Start Date Active Aspirin 81 mg Tab RxNorm: 390369 1 Tablet(s) PO QD No Start Date Active Brisdelle 7.5 mg capsule RxNorm: 2618951 1 Capsule(s) PO QHS No Sta rt Date 12/09/2015 Inactive Prevacid 30 mg Cap RxNorm: 951354 1 Capsule(s) PO QD No Start Date Inactive Ultram 50 mg Tab RxNorm: 556661 2 Tablet(s) PO QID prn headache No Start Date 04/13/2010 Inactive tizanidine 4 mg tablet RxNorm: 103517 1 Tablet(s) PO Q8 H as needed for muscle spasm No Start Date 05/09/2017 Inactive nystatin-triamcinolone 100,000 unit/g-0.1 % topical cream Rx Norm: 1303314 1 Application TOP QHS to rash No Start Date 08/21/2013 Inactive Imitrex 100 mg tablet RxNorm: 940985 1 Tablet(s) PO at WONG onset-September repeat in 6hours as needed No Start Date 08/03/2015 Inactive Treximet 85 mg-500 mg Tab RxNorm: 887735 1 Tablet(s) PO at WONG onset, may repeat i po in 2hrs if WONG remains No Start Date 12/02/2010 Inactive alprazolam 0.25 mg tablet RxNorm: 275794 1 Tablet(s) PO QPM No Star t Date 08/03/2015 Inactive amitriptyline 25 mg Tab RxNorm: 509471 1 Tablet(s) PO QAM No Start Date 12/06/2010 Inactive amitriptyline 10 mg Tab RxNorm: 695468 Tablet(s) PO Patel e 4 tablets by mouth 1 week before period and week of period and 3 tablets other 2 weeks of month No Start Date 09/04/2011 Inactive Omnaris 50 mcg Nasal [place] RxNorm: 211872 2 [place] NASAL QD each nostril No Start Date 12/20/2011 Inactive sertraline 25 mg tablet RxNorm: 426661 1 Tablet(s) PO QD No Start D ate 08/03/2015 Inactive atenolol 25 mg tablet RxNorm: 957445 1 Tablet(s) PO QD No Start Date 07/21/2013 Inactive hydrochlorothiazide 25 mg tablet RxNorm: 614112 1 Tablet(s) PO QAM No Start Date 05/26/2015 Inactive Maxalt 10 mg tablet RxNorm: 714159 Tablet(s) PO as needed for h eadache No Start Date 10/04/2015 Inactive atenolol 25 mg Tab RxNorm: 796860 1/2 Tablet(s) PO QD No Start Date 0 12/20/2011 Inactive Medrol (Camilo) 4 mg tablets in a dose pack RxNorm: 609834 Tablet(s) PO as directed No Start Date 11/11/2012 Inactive Naprosyn 500 mg tablet RxNorm: 778034 1 Tablet(s) PO BID No Start D ate 09/04/2014 Inactive promethazine-codeine 6.25 mg-10 mg/5 mL syrup RxNorm: 961803 PO No Start Date 06/29/2014 Inactive Flexeril 5 mg Tab RxNorm: 279915 2 Tablet(s) PO QHS No Start Date Inactive Treximet 85 mg-500 mg tablet RxNorm: 075259 Tablet(s) PO PRN No Sta rt Date 07/21/2013 Inactive cyclobenzaprine 5 mg tablet RxNorm: 364978 1-2 Tablet(s) PO QHS No Start Date 03/09/2015 Inactive atenolol 25 mg tablet RxNorm: 996910 1 Tablet(s) PO QD No Start Date 12/25/2016 Inactive lisinopril 20 mg Tab RxNorm: 193308 1 Tablet(s) PO QD No Start Date 0 10/06/2011 Inactive Topamax 50 mg Tab RxNorm: 130916 1 Tablet(s) PO BID No Start Date 08/2009 Inactive Treximet 85 mg-500 mg Tab RxNorm: 300129 Tablet(s) PO T vi 1 at headache onset and may repeat 1 in two hours if needed No Start Date 09/04/2011 Inactive Stool Softener 100 mg Cap RxNorm: 1370600 3 Capsule(s) PO QD No Sta rt Date 06/29/2014 Inactive flax seed oil RxNorm: 1 PO QD No Start Date 03/09/2015 Inactive Medication Administered No Medication Administered data Immunizations Vaccine Codes Date Status Tetanus, Diptheria, Pertussis CVX: 115 06/11/2018 Co mplete Results Observation Observation Code Item Item Code Result Date S ervice Location COMPREHENSIVE METABOLIC 87623 AST 15 U/L 2018 Unknown COMPREHENSIVE METABOLIC 16629 ALT 15 U/L 2018 Unknown COMPREHENSIVE METABOLIC 54594 BUN 19 mg/dL 2018 Unknown COMPREHENSIVE METABOLIC 27999 ALBUMIN 4.3 g/dL 2018 Unknown COMPREHENSIVE METABOLIC 03021 CHLORIDE 106 mmol/L 06/29 Unknown COMPREHENSIVE METABOLIC 93029 Bili Total 0.6 mg/dL 06/29 Unknown COMPREHENSIVE METABOLIC 39367 ALK PHOS 82 U/L 2018 Unknown COMPREHENSIVE METABOLIC 46477 SODIUM 141 mmol/L 06/29 Unknown COMPREHENSIVE METABOLIC 18701 CREATININE 0.66 mg/dL 06/15 Unknown COMPREHENSIVE METABOLIC 22619 CALCIUM 9.6 mg/dL 2018 Unknown COMPREHENSIVE METABOLIC 04899 POTASSIUM 4.3 mmol/L 06/29 Unknown COMPREHENSIVE METABOLIC 33611 Total Protein 7.0 g/dL Unknown COMPREHENSIVE METABOLIC 83494 Glucose 102 mg/dL 2018 Unknown COMPREHENSIVE METABOLIC 30856 Bicarbonate 29 mmol/L 06/15 Unknown COMPREHENSIVE METABOLIC 94918 AGAP 6 mmol/L 2018 Unknown FREE T4 71017 T4 Free 1.04 ng/dL 06/29/2018 Unknown GFR CALC 6647607 GFR Non Afr Amr >60 mL/min 06/29/2018 Un known GFR CALC 7846147 GFR Afr Amr >60 mL/min 06/29/2018 Unknow n [facility] 75397 Cholesterol 197 mg/dL 06/29/2018 Unkno wn [facility] 61530 Triglyceride 70 mg/dL 06/29/2018 Unkn own [facility] 18787 HDL CHOLESTEROL 45 mg/dL 06/29/2018 U nknown [facility] 40460 Chol/HDL Ratio 4.38 ratio 06/29/2018 U nknown [facility] 75436 NON-HDL Chol 152 mg/dL 06/29/2018 Unkn own [facility] 57597 LDL Cholesterol 138 mg/dL 06/29/2018 U nknown THYROID STIMULATING HORMONE 90550 TSH 1.477 uIU/mL 06/29/2018 Unknown COMPLETE BLOOD COUNT [id number] WBC 5.2 10e9/L 06/29/19 19 Unknown COMPLETE BLOOD COUNT [id number] RBC 4.93 10e12/L 2018 Unknown COMPLETE BLOOD COUNT [id number] HEMOGLOBIN 14.3 g/dL 06/29/19 19 Unknown COMPLETE BLOOD COUNT [id number] HEMATOCRIT 42.9 % 06/29/19 19 Unknown COMPLETE BLOOD COUNT [id number] MCV 87.0 fL 9 Unknown COMPLETE BLOOD COUNT [id number] MCH 29.0 pg 9 Unknown COMPLETE BLOOD COUNT 6057397 MCHC 33.3 g/dL 9 Unknown COMPLETE BLOOD COUNT [id number] PLATELET COUNT 289 10e9/L Unknown COMPLETE BLOOD COUNT [id number] Mean Plt Volume 10.6 fL Unknown COMPLETE BLOOD COUNT [id number] Neut Auto 74.1 % 9 Unknown COMPLETE BLOOD COUNT [id number] Lymph Auto 14.7 % 06/29/19 19 Unknown COMPLETE BLOOD COUNT [id number] [place] Auto 8.3 % 9 Unknown COMPLETE BLOOD COUNT [id number] RDW 13.7 % 9 Unknown COMPLETE BLOOD COUNT [id number] Eos Auto 2.7 % 9 Unknown COMPLETE BLOOD COUNT [id number] Baso Auto 0.2 % 9 Unknown COMPLETE BLOOD COUNT [id number] Neutrophil Abs 3.85 10e9/L Unknown COMPLETE BLOOD COUNT [id number] Lymphocyte Abs 0.76 10e9/L Unknown COMPLETE BLOOD COUNT [id number] Monocyte Abs 0.43 10e9/L 06/15 Unknown COMPLETE BLOOD COUNT [id number] Eosinophil Abs 0.14 10e9/L Unknown COMPLETE BLOOD COUNT [id number] RDW-SD 42.7 fL 9 Unknown COMPLETE BLOOD COUNT [id number] Basophil Abs 0.01 10e9/L 06/15 Unknown IRON 20833 IRON TEST 42 UG/DL 07/31/2014 Unknown FERRITIN 89283 FERRITIN 10 NG/ML 07/31/2014 Unknown VITAMIN B 12 FOLIC ACID 36290|24363 VIT B 12 233 PG/ML 07/13 Unknown VITAMIN B 12 FOLIC ACID 01344|97069 FOLIC ACID 8.7 NG/ML Unknown COMPLETE BLOOD COUNT 2977393 WBC 6.4 10e9/L 07/30/19 15 Unknown COMPLETE BLOOD COUNT [id number] RBC 4.36 10e12/L 2014 Unknown COMPLETE BLOOD COUNT [id number] HGB 11.5 g/dL 5 Unknown COMPLETE BLOOD COUNT [id number] HCT DET 35.3 % 5 Unknown COMPLETE BLOOD COUNT [id number] MCV 81.0 fL 5 Unknown COMPLETE BLOOD COUNT 0616153 MCH 26.4 pg 5 Unknown COMPLETE BLOOD COUNT 6574397 MCHC 32.6 g/dL 5 Unknown COMPLETE BLOOD COUNT 2378998 PLT 329 10e9/L 07/30/19 15 Unknown COMPLETE BLOOD COUNT [id number] MPV 10.4 fL 5 Unknown COMPLETE BLOOD COUNT 9500850 ROLAND % 69.6 % 5 Unknown COMPLETE BLOOD COUNT [id number] LY % 21.3 % 5 Unknown COMPLETE BLOOD COUNT [id number] MON % 6.8 % 5 Unknown COMPLETE BLOOD COUNT [id number] EOS % 2.0 % 5 Unknown COMPLETE BLOOD COUNT [id number] BASO % 0.3 % 5 Unknown COMPLETE BLOOD COUNT [id number] RDW 15.9 % 5 Unknown COMPLETE BLOOD COUNT [id number] ABS ROLAND 4.45 10e9/L 015 Unknown COMPLETE BLOOD COUNT [id number] ABS LYMPH 1.36 10e9/L 015 Unknown COMPLETE BLOOD COUNT [id number] ABS MONO 0.44 10e9/L 015 Unknown COMPLETE BLOOD COUNT [id number] ABS EOS 0.13 10e9/L 015 Unknown COMPLETE BLOOD COUNT [id number] ABS BASO 0.02 10e9/L 015 Unknown COMPLETE BLOOD COUNT [id number] RDW-SD 46.1 fL 5 Unknown LIPID GROUP [id number] HDL TEST 41 MG/DL 07/29/2014 Unknown LIPID GROUP 92692 TRIG 92 MG/DL 07/29/2014 Unknown LIPID GROUP 88988 TEST LDL 118 MG/DL 07/29/2014 Unknown LIPID GROUP 43699 CHOL 177 MG/DL 07/29/2014 Unknown LIPID GROUP 09089 RCHOL/HDL 4.32 RATIO 07/29/2014 Unknow n LIPID GROUP 05093 NON-HDL CH 136 MG/DL 07/29/2014 Unknow n GFR CALC [id number] GFR AA >60 ML/MIN 07/29/2014 Unknown GFR CALC [id number] GFR NON-AA >60 ML/MIN 07/29/2014 Unknown FREE T4 75734 FREE T4 1.10 NG/DL 07/29/2014 Unknown COMPREHENSIVE METABOLIC 32470 AST 13 U/L 2014 Unknown COMPREHENSIVE METABOLIC 91219 ALT 12 IU/L 2014 Unknown COMPREHENSIVE METABOLIC 66760 BUN 16 MG/DL 2014 Unknown COMPREHENSIVE METABOLIC 64410 ALBUMIN 4.1 GM/DL 2014 Unknown COMPREHENSIVE METABOLIC 47064 CHLORIDE 106 MMOL/L 07/29 Unknown COMPREHENSIVE METABOLIC 03131 BILI TOT 0.4 MG/DL 2014 Unknown COMPREHENSIVE METABOLIC 02778 ALK PHOS 77 U/L 2014 Unknown COMPREHENSIVE METABOLIC 60806 SODIUM 137 MMOL/L 07/29 Unknown COMPREHENSIVE METABOLIC 14888 CREATININE 0.65 MG/DL 07/13 Unknown COMPREHENSIVE METABOLIC 42102 CALCIUM 9.0 MG/DL 2014 Unknown COMPREHENSIVE METABOLIC 54211 POTASSIUM 4.0 MMOL/L 07/29 Unknown COMPREHENSIVE METABOLIC 07242 PROT TOT 6.3 GM/DL 2014 Unknown COMPREHENSIVE METABOLIC 87460 Glucose 98 MG/DL 2014 Unknown COMPREHENSIVE METABOLIC 89029 BICARB 26 MMOL/L 2014 Unknown COMPREHENSIVE METABOLIC 94488 ANION GAP 5 MEQ/L 2014 Unknown THYROID STIMULATING HORMONE 96553 TSH 1.678 uIU/ML 07/29/2014 Unknown GFR CALC [id number] GFR AA >60 ML/MIN 02/26/2013 Unknown GFR CALC 6575513 GFR NON-AA >60 ML/MIN 02/26/2013 Unknown THYROID STIMULATING HORMONE 10513 TSH 1.635 uIU/ML 02/26/2013 Unknown COMPLETE BLOOD COUNT [id number] WBC 7.8 10e9/L 02/27/20 13 Unknown COMPLETE BLOOD COUNT [id number] RBC 4.60 10e12/L 2012 Unknown COMPLETE BLOOD COUNT 3596453 HGB 12.7 g/dL 3 Unknown COMPLETE BLOOD COUNT 1746476 HCT DET 38.1 % 3 Unknown COMPLETE BLOOD COUNT 7061217 MCV 82.8 fL 3 Unknown COMPLETE BLOOD COUNT 5960190 MCH 27.6 pg 3 Unknown COMPLETE BLOOD COUNT 4237906 MCHC 33.3 g/dL 3 Unknown COMPLETE BLOOD COUNT 1238430 PLT 324 10e9/L 02/27/20 13 Unknown COMPLETE BLOOD COUNT 7403450 MPV 10.2 fL 3 Unknown COMPLETE BLOOD COUNT [id number] ROLAND % 72.0 % 3 Unknown COMPLETE BLOOD COUNT 3344762 LY % 20.1 % 3 Unknown COMPLETE BLOOD COUNT 4508735 MON % 6.3 % 3 Unknown COMPLETE BLOOD COUNT 2472171 EOS % 1.3 % 3 Unknown COMPLETE BLOOD COUNT [id number] BASO % 0.3 % 3 Unknown COMPLETE BLOOD COUNT 9574337 RDW 14.4 % 3 Unknown COMPLETE BLOOD COUNT [id number] ABS ROLAND 5.62 10e9/L 013 Unknown COMPLETE BLOOD COUNT [id number] ABS LYMPH 1.57 10e9/L 013 Unknown COMPLETE BLOOD COUNT [id number] ABS MONO 0.49 10e9/L 013 Unknown COMPLETE BLOOD COUNT [id number] ABS EOS 0.10 10e9/L 013 Unknown COMPLETE BLOOD COUNT [id number] ABS BASO 0.02 10e9/L 013 Unknown COMPLETE BLOOD COUNT [id number] RDW-SD 42.8 fL 3 Unknown COMPREHENSIVE METABOLIC 40693 AST 15 U/L 2012 Unknown COMPREHENSIVE METABOLIC 24030 ALT 14 IU/L 2012 Unknown COMPREHENSIVE METABOLIC 42464 BUN 14 MG/DL 2012 Unknown COMPREHENSIVE METABOLIC 74078 ALBUMIN 4.2 GM/DL 2012 Unknown COMPREHENSIVE METABOLIC 18649 CHLORIDE 104 MMOL/L 02/26 Unknown COMPREHENSIVE METABOLIC 28915 BILI TOT 0.6 MG/DL 2012 Unknown COMPREHENSIVE METABOLIC 79104 ALK PHOS 71 U/L 2012 Unknown COMPREHENSIVE METABOLIC 44632 SODIUM 136 MMOL/L 02/26 Unknown COMPREHENSIVE METABOLIC 44203 CREATININE 0.62 MG/DL 02/12 Unknown COMPREHENSIVE METABOLIC 84097 CALCIUM 9.5 MG/DL 2012 Unknown COMPREHENSIVE METABOLIC 99801 POTASSIUM 4.1 MMOL/L 02/26 Unknown COMPREHENSIVE METABOLIC 29739 PROT TOT 6.7 GM/DL 2012 Unknown COMPREHENSIVE METABOLIC 53573 Glucose 92 MG/DL 2012 Unknown COMPREHENSIVE METABOLIC 83757 BICARB 26 MMOL/L 2012 Unknown COMPREHENSIVE METABOLIC 05193 ANION GAP 6 MEQ/L 2012 Unknown LIPID GROUP 87543 HDL TEST 45 MG/DL 02/26/2013 Unknown LIPID GROUP 08212 TRIG 107 MG/DL 02/26/2013 Unknown LIPID GROUP 00689 TEST LDL 129 MG/DL 02/26/2013 Unknown LIPID GROUP 30784 CHOL 195 MG/DL 02/26/2013 Unknown LIPID GROUP 05617 RCHOL/HDL 4.33 RATIO 02/26/2013 Unknow n FREE T4 24746 FREE T4 1.07 NG/DL 02/26/2013 Unknown MYCOPLASMA ANTIBODY, IFA [id number] MYCO G IFA 1:128 06/2012 Unknown MYCOPLASMA ANTIBODY, IFA [id number] MYCO M IFA <1:10 06/2012 Unknown MYCOPLASMA ANTIBODY, IFA [id number] MYCO INTER SEE BELO 06/2012 Unknown COMPLETE BLOOD COUNT [id number] WBC 6.0 10e9/L 11/13/19 13 Unknown COMPLETE BLOOD COUNT [id number] RBC 4.68 10e12/L 2012 Unknown COMPLETE BLOOD COUNT 9662435 HGB 12.9 g/dL 3 Unknown COMPLETE BLOOD COUNT [id number] HCT DET 38.7 % 3 Unknown COMPLETE BLOOD COUNT 5484858 MCV 82.7 fL 3 Unknown COMPLETE BLOOD COUNT 8826791 MCH 27.6 pg 3 Unknown COMPLETE BLOOD COUNT 7178206 MCHC 33.3 g/dL 3 Unknown COMPLETE BLOOD COUNT 6593797 PLT 297 10e9/L 11/13/19 13 Unknown COMPLETE BLOOD COUNT [id number] MPV 11.1 fL 3 Unknown COMPLETE BLOOD COUNT 7756545 ROLAND % 63.8 % 3 Unknown COMPLETE BLOOD COUNT 6163831 LY % 28.2 % 3 Unknown COMPLETE BLOOD COUNT 9597857 MON % 6.6 % 3 Unknown COMPLETE BLOOD COUNT 8940560 EOS % 1.2 % 3 Unknown COMPLETE BLOOD COUNT 9571134 BASO % 0.2 % 3 Unknown COMPLETE BLOOD COUNT 8905789 RDW 14.9 % 3 Unknown COMPLETE BLOOD COUNT [id number] ABS ROLAND 3.83 10e9/L 013 Unknown COMPLETE BLOOD COUNT [id number] ABS LYMPH 1.69 10e9/L 013 Unknown COMPLETE BLOOD COUNT [id number] ABS MONO 0.40 10e9/L 013 Unknown COMPLETE BLOOD COUNT [id number] ABS EOS 0.07 10e9/L 013 Unknown COMPLETE BLOOD COUNT [id number] ABS BASO 0.01 10e9/L 013 Unknown COMPLETE BLOOD COUNT [id number] RDW-SD 44.8 fL 3 Unknown HEMOGLOBIN A1C (GLYCOSYLATED) 0134296 A1C HPLC 26693-7 5.1 % 06/06/2012 Unknown RA FACTOR 08661 RA FACTOR <20.0 IU/ML 06/06/2012 Unknown ANTINUCLEAR ANTIBODY SCREEN 14941 FERDINAND SCR <1:80 Unknown INSULIN SERUM 58605 INSULIN 12.2 mU/L 06/06/2012 Unkno wn COMPREHENSIVE METABOLIC 54699 AST 13 U/L 2012 Unknown COMPREHENSIVE METABOLIC 80132 ALT 13 IU/L 2012 Unknown COMPREHENSIVE METABOLIC 70939 BUN 21 MG/DL 2012 Unknown COMPREHENSIVE METABOLIC 74487 ALBUMIN 4.7 GM/DL 2012 Unknown COMPREHENSIVE METABOLIC 08909 CHLORIDE 106 MMOL/L 06/05 Unknown COMPREHENSIVE METABOLIC 67366 BILI TOT 0.6 MG/DL 2012 Unknown COMPREHENSIVE METABOLIC 16925 ALK PHOS 61 U/L 2012 Unknown COMPREHENSIVE METABOLIC 42101 SODIUM 139 MMOL/L 06/05 Unknown COMPREHENSIVE METABOLIC 43258 CREATININE 0.71 MG/DL 05/16 Unknown COMPREHENSIVE METABOLIC 48457 CALCIUM 9.8 MG/DL 2012 Unknown COMPREHENSIVE METABOLIC 68883 POTASSIUM 4.6 MMOL/L 06/05 Unknown COMPREHENSIVE METABOLIC 83480 PROT TOT 6.7 GM/DL 2012 Unknown COMPREHENSIVE METABOLIC 55387 Glucose 104 MG/DL 2012 Unknown COMPREHENSIVE METABOLIC 65596 BICARB 24 MMOL/L 2012 Unknown COMPREHENSIVE METABOLIC 46034 ANION GAP 9 MEQ/L 2012 Unknown GFR CALC 9940557 GFR AA >60 ML/MIN 06/05/2012 Unknown GFR CALC 6410981 GFR NON-AA >60 ML/MIN 06/05/2012 Unknown LIPID GROUP 01519 HDL TEST 46 MG/DL 06/05/2012 Unknown LIPID GROUP 20582 TRIG 77 MG/DL 06/05/2012 Unknown LIPID GROUP 79880 TEST LDL 135 MG/DL 06/05/2012 Unknown LIPID GROUP 35507 CHOL 196 MG/DL 06/05/2012 Unknown LIPID GROUP 47227 RCHOL/HDL 4.26 RATIO 06/05/2012 Unknow n COMPLETE BLOOD COUNT 3061063 WBC 5.9 10e9/L 06/05/19 13 Unknown COMPLETE BLOOD COUNT [id number] RBC 5.02 10e12/L 2012 Unknown COMPLETE BLOOD COUNT 6211301 HGB 13.9 g/dL 3 Unknown COMPLETE BLOOD COUNT 2554879 HCT DET 41.5 % 3 Unknown COMPLETE BLOOD COUNT 4497561 MCV 82.7 fL 3 Unknown COMPLETE BLOOD COUNT 7593625 MCH 27.7 pg 3 Unknown COMPLETE BLOOD COUNT 9110238 MCHC 33.5 g/dL 3 Unknown COMPLETE BLOOD COUNT 9532707 PLT 323 10e9/L 06/05/19 13 Unknown COMPLETE BLOOD COUNT 4958958 MPV 11.3 fL 3 Unknown COMPLETE BLOOD COUNT 5706173 ROLAND % 70.6 % 3 Unknown COMPLETE BLOOD COUNT 4272939 LY % 21.4 % 3 Unknown COMPLETE BLOOD COUNT [id number] MON % 6.4 % 3 Unknown COMPLETE BLOOD COUNT [id number] EOS % 1.3 % 3 Unknown COMPLETE BLOOD COUNT [id number] BASO % 0.3 % 3 Unknown COMPLETE BLOOD COUNT 2136309 RDW 14.9 % 3 Unknown COMPLETE BLOOD COUNT [id number] ABS ROLAND 4.17 10e9/L 013 Unknown COMPLETE BLOOD COUNT 7400186 ABS LYMPH 1.26 10e9/L 013 Unknown COMPLETE BLOOD COUNT [id number] ABS MONO 0.38 10e9/L 013 Unknown COMPLETE BLOOD COUNT 9293917 ABS EOS 0.08 10e9/L 013 Unknown COMPLETE BLOOD COUNT 3932571 ABS BASO 0.02 10e9/L 013 Unknown COMPLETE BLOOD COUNT 0447917 RDW-SD 44.8 fL 3 Unknown THYROID STIMULATING HORMONE 39168 TSH 1.684 uIU/ML 06/05/2012 Unknown FREE T4 66441 FREE T4 1.19 NG/DL 06/05/2012 Unknown BASIC METABOLIC PANEL 60975 Glucose 100 MG/DL 04/13/20 11 Unknown BASIC METABOLIC PANEL 92288 BUN 18 MG/DL 04/13/20 11 Unknown BASIC METABOLIC PANEL 28003 CREATININE 0.66 MG/DL 2010 Unknown BASIC METABOLIC PANEL 24698 SODIUM 138 MMOL/L 011 Unknown BASIC METABOLIC PANEL 63520 BICARB 26 MMOL/L 04/13/20 11 Unknown BASIC METABOLIC PANEL 01297 POTASSIUM 4.0 MMOL/L 011 Unknown BASIC METABOLIC PANEL 80016 ANION GAP 9 MEQ/L 04/13/20 11 Unknown BASIC METABOLIC PANEL 16182 CHLORIDE 103 MMOL/L 011 Unknown BASIC METABOLIC PANEL 37851 CALCIUM 9.6 MG/DL 04/13/20 11 Unknown FSH 2235560 FSH 4.6 MIU/ML 04/13/2011 Unknown GFR CALC 0334724 GFR AA >60 ML/MIN 04/13/2011 Unknown GFR CALC 7319909 GFR NON-AA >60 ML/MIN 04/13/2011 Unknown ESTRADIOL SERUM 20878 ESTRADIOL 113 PG/ML 04/13/2011 [place] [address] LH 3.7 MIU/ML 04/13/2011 Unknown THYROID STIMULATING HORMONE 76797 TSH 1.995 uIU/ML 04/13/2011 Unknown LIPID GROUP 92746 HDL TEST 40 MG/DL 12/21/2010 Unknown LIPID GROUP 40229 TRIG 66 MG/DL 12/21/2010 Unknown LIPID GROUP 36600 TEST LDL 132 MG/DL 12/21/2010 Unknown LIPID GROUP 38763 CHOL 185 MG/DL 12/21/2010 Unknown LIPID GROUP 69348 RCHOL/HDL 4.63 RATIO 12/21/2010 Unknow n THYROID STIMULATING HORMONE 68259 TSH 1.876 uIU/ML 12/21/2010 Unknown COMPLETE BLOOD COUNT 08016 WBC 7.0 10e9/L 12/22/19 11 Unknown COMPLETE BLOOD COUNT 74068 RBC 4.28 10e12/L 2010 Unknown COMPLETE BLOOD COUNT 81623 HGB 12.1 g/dL 1 Unknown COMPLETE BLOOD COUNT 27142 HCT DET 36.1 % 1 Unknown COMPLETE BLOOD COUNT 53204 MCV 84.3 fL 1 Unknown COMPLETE BLOOD COUNT 88272 MCH 28.3 pg 1 Unknown COMPLETE BLOOD COUNT 45482 MCHC 33.5 g/dL 1 Unknown COMPLETE BLOOD COUNT 98790 PLT 306 10e9/L 12/22/19 11 Unknown COMPLETE BLOOD COUNT 52517 MPV 10.4 fL 1 Unknown COMPLETE BLOOD COUNT 88016 ROLAND % 69.9 % 1 Unknown COMPLETE BLOOD COUNT 91897 LY % 22.2 % 1 Unknown COMPLETE BLOOD COUNT 99613 MON % 5.7 % 1 Unknown COMPLETE BLOOD COUNT 43634 EOS % 1.9 % 1 Unknown COMPLETE BLOOD COUNT 30579 BASO % 0.3 % 1 Unknown COMPLETE BLOOD COUNT 94602 RDW 14.0 % 1 Unknown COMPLETE BLOOD COUNT 79333 ABS ROLAND 4.89 10e9/L 011 Unknown COMPLETE BLOOD COUNT 06581 ABS LYMPH 1.55 10e9/L 011 Unknown COMPLETE BLOOD COUNT 62937 ABS MONO 0.40 10e9/L 011 Unknown COMPLETE BLOOD COUNT 50000 ABS EOS 0.13 10e9/L 011 Unknown COMPLETE BLOOD COUNT 00771 ABS BASO 0.02 10e9/L 011 Unknown COMPLETE BLOOD COUNT 64406 RDW-SD 41.5 fL 1 Unknown FREE T4 09821 FREE T4 1.02 NG/DL 12/21/2010 Unknown COMPREHENSIVE METABOLIC 67919 AST 11 U/L 2010 Unknown COMPREHENSIVE METABOLIC 61273 ALT 9 IU/L 2010 Unknown COMPREHENSIVE METABOLIC 51720 BUN 16 MG/DL 2010 Unknown COMPREHENSIVE METABOLIC 30977 ALBUMIN 4.0 GM/DL 2010 Unknown COMPREHENSIVE METABOLIC 88123 CHLORIDE 106 MMOL/L 12/21 Unknown COMPREHENSIVE METABOLIC 57303 BILI TOT 0.3 MG/DL 2010 Unknown COMPREHENSIVE METABOLIC 86940 ALK PHOS 59 U/L 2010 Unknown COMPREHENSIVE METABOLIC 53519 SODIUM 139 MMOL/L 12/21 Unknown COMPREHENSIVE METABOLIC 61242 CREATININE 0.66 MG/DL 01/2011 Unknown COMPREHENSIVE METABOLIC 85208 CALCIUM 8.9 MG/DL 2010 Unknown COMPREHENSIVE METABOLIC 06203 POTASSIUM 4.2 MMOL/L 12/21 Unknown COMPREHENSIVE METABOLIC 79273 PROT TOT 6.5 GM/DL 2010 Unknown COMPREHENSIVE METABOLIC 89774 Glucose 101 MG/DL 2010 Unknown COMPREHENSIVE METABOLIC 23051 BICARB 28 MMOL/L 2010 Unknown COMPREHENSIVE METABOLIC 03374 ANION GAP 5 MEQ/L 2010 Unknown GFR CALC 5433680 GFR AA >60 ML/MIN 12/21/2010 Unknown GFR CALC 9045629 GFR NON-AA >60 ML/MIN 12/21/2010 Unknown LIPID GROUP 39815 HDL TEST 40 MG/DL 12/10/2009 Unknown LIPID GROUP 03246 TRIG 98 MG/DL 12/10/2009 Unknown LIPID GROUP 09937 TEST LDL 128 MG/DL 12/10/2009 Unknown LIPID GROUP 69334 CHOL 188 MG/DL 12/10/2009 Unknown LIPID GROUP 12611 RCHOL/HDL 4.70 RATIO 12/10/2009 Unknow n DF 7649243 POLY 74 % 12/09/2009 Unknown DF 6114416 BAND 0 % 12/09/2009 Unknown DF 7093600 LYMP 21 % 12/09/2009 Unknown DF [id number] MONO 3 % 12/09/2009 Unknown DF 9985561 EOS 2 % 12/09/2009 Unknown DF [id number] BASO 0 % 12/09/2009 Unknown GFR CALC 6943230 GFR AA >60 ML/MIN 12/09/2009 Unknown GFR CALC 2332821 GFR NON-AA >60 ML/MIN 12/09/[address] [id number] WBC 8.7 10e9/L 12/09/[address] [id number] RBC 4.78 10e12/L 12/09/[address] [place] 0164859 HGB 13.2 g/dL 12/09/[address] 7868050 HCT DET 40.2 % 12/09/[address] 5324864 MCV 84.1 fL 12/09/[address] 8854393 MCH 27.6 pg 12/09/[address] 4671558 MCHC 32.8 g/dL 12/09/[address] 1182088 PLT 374 10e9/L 12/09/[address] 5259561 MPV 11.0 fL 12/09/[address] 2556697 ROLAND % 70.2 % 12/09/[address] 7467919 RDW 14.4 % 12/09/[address] 2099114 LY % 22.4 % 12/09/[address] 0788793 RDW-SD 44.7 fL 12/09/[address] 7838835 MON % 6.2 % 12/09/[address] 8021266 EOS % 1.0 % 12/09/[address] 4420608 BASO % 0.2 % 12/09/[address] [id number] ABS ROLAND 6.08 10e9/L 12/09/[address] [id number] ABS LYMPH 1.94 10e9/L 12/09/[address] [id number] ABS MONO 0.54 10e9/L 12/09/[address] 2425519 ABS EOS 0.09 10e9/L 12/09/[address] [id number] ABS BASO 0.02 10e9/L 12/09/2009 Unknown THYROID STIMULATING HORMONE 26729 TSH 1.916 uIU/ML 12/09/2009 Unknown COMPREHENSIVE METABOLIC 20908 AST 13 U/L 2009 Unknown COMPREHENSIVE METABOLIC 34027 ALT 13 IU/L 2009 Unknown COMPREHENSIVE METABOLIC 82148 BUN 18 MG/DL 2009 Unknown COMPREHENSIVE METABOLIC 00046 ALBUMIN 4.3 GM/DL 2009 Unknown COMPREHENSIVE METABOLIC 23617 CHLORIDE 106 MMOL/L 12/09 Unknown COMPREHENSIVE METABOLIC 98342 BILI TOT 0.5 MG/DL 2009 Unknown COMPREHENSIVE METABOLIC 86998 ALK PHOS 69 U/L 2009 Unknown COMPREHENSIVE METABOLIC 26046 SODIUM 137 MMOL/L 12/09 Unknown COMPREHENSIVE METABOLIC 59507 CREATININE 0.69 MG/DL 11/13 Unknown COMPREHENSIVE METABOLIC 33877 CALCIUM 9.1 MG/DL 2009 Unknown COMPREHENSIVE METABOLIC 75702 POTASSIUM 4.5 MMOL/L 12/09 Unknown COMPREHENSIVE METABOLIC 80642 PROT TOT 6.9 GM/DL 2009 Unknown COMPREHENSIVE METABOLIC 19544 Glucose 97 MG/DL 2009 Unknown COMPREHENSIVE METABOLIC 09572 BICARB 20 MMOL/L 2009 Unknown COMPREHENSIVE METABOLIC 94825 ANION GAP 11 MEQ/L 2009 Unknown Procedures Procedure Codes Date ROUTINE VENIPUNCTURE CPT-4: 23807 06/29/2018 ASSAY OF FREE THYROXINE CPT-4: 20622 06/29/2018 ASSAY THYROID STIM HORMONE CPT-4: 09441 06/29/2018 COMPREHEN METABOLIC PANEL CPT-4: 57748 06/29/2018 COMPLETE CBC W/AUTO DIFF WBC CPT-4: 45392 06/29/2018 LIPID PANEL CPT-4: 30536 06/29/2018 TDAP VACCINE 7 YRS/> IM CPT-4: 40241 06/11/2018 IMMUNIZATION ADMIN CPT-4: 40993 06/11/2018 ROUTINE VENIPUNCTURE CPT-4: 51856 04/05/2017 ASSAY THYROID STIM HORMONE CPT-4: 30338 04/05/2017 COMPREHEN METABOLIC PANEL CPT-4: 37075 04/05/2017 COMPLETE CBC W/AUTO DIFF WBC CPT-4: 89529 04/05/2017 LIPID PANEL CPT-4: 79830 04/05/2017 ASSAY OF BLOOD/URIC ACID CPT-4: 94049 04/05/2017 THER/PROPH/DIAG INJ SC/IM CPT-4: 70155 02/12/2016 TRIAMCINOLONE ACET INJ NOS CPT-4: J3301 02/12/2016 DEXAMETHASONE SODIUM PHOS CPT-4: J1100 02/12/2016 PRESCRIP TRANSMIT VIA ERX SY CPT-4: G8553 10/01/2015 URINALYSIS NONAUTO W/O SCOPE CPT-4: 23269 10/01/2015 URINE CULTURE/ COLONY COUNT CPT-4: 00356 10/01/2015 OCCULT BLOOD FECES CPT-4: 66678 08/04/2015 SPECIMEN HANDLING OFFICE-LAB CPT-4: 97439 08/04/2015 URINALYSIS NONAUTO W/O SCOPE CPT-4: 43093 05/27/2015 URINE CULTURE/ COLONY COUNT CPT-4: 68091 05/27/2015 THER/PROPH/DIAG INJ SC/IM CPT-4: 88885 03/10/2015 KETOROLAC TROMETHAMINE INJ CPT-4: J1885 03/10/2015 ROUTINE VENIPUNCTURE CPT-4: 35699 07/29/2014 ASSAY OF FREE THYROXINE CPT-4: 44902 07/29/2014 ASSAY THYROID STIM HORMONE CPT-4: 75450 07/29/2014 COMPREHEN METABOLIC PANEL CPT-4: 76808 07/29/2014 COMPLETE CBC W/AUTO DIFF WBC CPT-4: 57512 07/29/2014 LIPID PANEL CPT-4: 61122 07/29/2014 ASSAY OF IRON CPT-4: 95541 07/29/2014 ASSAY OF FERRITIN CPT-4: 38318 07/29/2014 VITAMIN B 12 FOLIC ACID CPT-4: 37546|66925 07/29/2014 URINALYSIS NONAUTO W/O SCOPE CPT-4: 08617 05/31/2013 URINE CULTURE/ COLONY COUNT CPT-4: 56651 05/31/2013 INFLUENZA ASSAY W/OPTIC CPT-4: 32283 05/27/2013 THER/PROPH/DIAG INJ SC/IM CPT-4: 13574 05/27/2013 METHYLPREDNISOLONE 40 MG INJ CPT-4: J1030 05/27/2013 TRIAMCINOLONE ACET INJ NOS CPT-4: J3301 05/27/2013 ROUTINE VENIPUNCTURE CPT-4: 24344 02/26/2013 ASSAY OF FREE THYROXINE CPT-4: 99626 02/26/2013 ASSAY THYROID STIM HORMONE CPT-4: 17859 02/26/2013 COMPREHEN METABOLIC PANEL CPT-4: 08350 02/26/2013 COMPLETE CBC W/AUTO DIFF WBC CPT-4: 52119 02/26/2013 LIPID PANEL CPT-4: 91602 02/26/2013 ROUTINE VENIPUNCTURE CPT-4: 19071 11/12/2012 COMPLETE CBC W/AUTO DIFF WBC CPT-4: 54589 11/12/2012 MYCOPLASMA ANTIBODY, IFA CPT-4: 28384P0 11/12/2012 ROUTINE VENIPUNCTURE CPT-4: 07086 06/05/2012 ASSAY OF FREE THYROXINE CPT-4: 74941 06/05/2012 ASSAY THYROID STIM HORMONE CPT-4: 11864 06/05/2012 COMPREHEN METABOLIC PANEL CPT-4: 07805 06/05/2012 COMPLETE CBC W/AUTO DIFF WBC CPT-4: 90627 06/05/2012 LIPID PANEL CPT-4: 37114 06/05/2012 ANTINUCLEAR ANTIBODIES CPT-4: 66444 06/05/2012 RHEUMATOID FACTOR QUANT CPT-4: 51226 06/05/2012 ASSAY OF INSULIN CPT-4: 18890 06/05/2012 A1C GLYCOSYLATED HEMOGLOBIN TEST CPT-4: 39709 013 SPECIMEN HANDLING OFFICE-LAB CPT-4: 38550 12/21/2011 ROUTINE VENIPUNCTURE CPT-4: 03182 04/13/2011 ASSAY THYROID STIM HORMONE CPT-4: 80258 04/13/2011 METABOLIC PANEL TOTAL CA CPT-4: 13763 04/13/2011 FSH CPT-4: 7694187 04/13/2011 LH CPT-4: 56246 04/13/2011 ASSAY OF ESTRADIOL CPT-4: 17549 04/13/2011 URINALYSIS NONAUTO W/O SCOPE CPT-4: 04615 02/04/2011 URINE CULTURE/ COLONY COUNT CPT-4: 51494 02/04/2011 ROUTINE VENIPUNCTURE CPT-4: 78491 12/21/2010 ASSAY OF FREE THYROXINE CPT-4: 52891 12/21/2010 ASSAY THYROID STIM HORMONE CPT-4: 79886 12/21/2010 COMPLETE CBC W/AUTO DIFF WBC CPT-4: 68864 12/21/2010 COMPREHEN METABOLIC PANEL CPT-4: 78808 12/21/2010 LIPID PANEL CPT-4: 71863 12/21/2010 OCCULT BLOOD FECES CPT-4: 74533 12/06/2010 ROUTINE VENIPUNCTURE CPT-4: 67825 12/09/2009 CBC WITH MANUAL DIFFERENTIAL CPT-4: 90614|60181 12/09/2009 COMPREHEN METABOLIC PANEL CPT-4: 49566 12/09/2009 LIPID PANEL CPT-4: 16363 12/09/2009 ASSAY THYROID STIM HORMONE CPT-4: 86865 12/09/2009 SPECIMEN HANDLING OFFICE-LAB CPT-4: 30895 12/08/2009 THER/PROPH/DIAG INJ SC/IM CPT-4: 48168 09/01/2009 KETOROLAC TROMETHAMINE INJ CPT-4: J1885 09/01/2009 URINALYSIS NONAUTO W/O SCOPE CPT-4: 74937 08/26/2009 Vital Signs Date Vital 01/15/2019 Blood [...] 1: 106/68 Code: 8480-6 BMI: 36.2 Code: 22560-4 Heart Rate 1: 72 bpm Height: 5'2" Respiratory Rate: 20 bpm SpO2: 97% Tempera ture: 37.1 (C) / 98.8 (F) Weight: 198 lbs 04/05/2017 Blood Pressure 1: 114/78 Code: 8480-6 BMI: 35.5 Code: 66910-5 Heart Rate 1: 68 bpm Height: 5'2" Respiratory Rate: 20 bpm SpO2: 96% Tempera ture: 36.9 (C) / 98.5 (F) Weight: 194 lbs 02/12/2016 Blood Pressure 1: 126/78 Code: 8480-6 BMI: 31.8 Code: 33969-0 Heart Rate 1: 60 bpm Height: 5'2" Respiratory Rate: 24 bpm SpO2: 96% Tempera ture: 36.2 (C) / 97.1 (F) Weight: 174 lbs 01/25/2016 Blood Pressure 1: 128/78 Code: 8480-6 BMI: 31.6 Code: 57021-7 Heart Rate 1: 76 bpm Height: 5'2" Respiratory Rate: 20 bpm SpO2: 98% Tempera ture: 36.5 (C) / 97.7 (F) Weight: 173 lbs 10/01/2015 Blood Pressure 1: 108/58 Code: 8480-6 BMI: 32.9 Code: 74853-8 Heart Rate 1: 62 bpm Height: 5'2" Respiratory Rate: 20 bpm SpO2: 98% Tempera ture: 36.2 (C) / 97.1 (F) Weight: 180 lbs 08/04/2015 Blood Pressure 1: 126/78 Code: 8480-6 BMI: 33.8 Code: 55318-0 Heart Rate 1: 72 bpm Height: 5'2" Respiratory Rate: 20 bpm Temperature: 36 .9 (C) / 98.5 (F) Weight: 185 lbs 05/27/2015 Blood Pressure 1: 132/80 Code: 8480-6 BMI: 36.2 Code: 63459-1 Heart Rate 1: 56 bpm Height: 5'2" Respiratory Rate: 20 bpm Temperature: 37 .0 (C) / 98.6 (F) Weight: 198 lbs 03/10/2015 Blood Pressure 1: 136/82 Code: 8480-6 BMI: 36.2 Code: 34644-7 Heart Rate 1: 88 bpm Height: 5'2" Respiratory Rate: 20 bpm Temperature: 37 .0 (C) / 98.6 (F) Weight: 198 lbs 06/30/2014 Blood Pressure 1: 124/78 Code: 8480-6 BMI: 35.8 Code: 88759-0 Heart Rate 1: 84 bpm Height: 5'2" Respiratory Rate: 20 bpm Temperature: 36 .8 (C) / 98.2 (F) Weight: 196 lbs 08/12/2013 Blood Pressure 1: 114/72 Code: 8480-6 BMI: 35.8 Code: 49495-4 Heart Rate 1: 80 bpm Height: 5'2" [...] 1: 132/86 Code: 8480-6 BMI: 34.9 Code: 80392-4 Heart Rate 1: 72 bpm Height: 5'2" Respiratory Rate: 20 bpm Temperature: 36 .9 (C) / 98.4 (F) Weight: 191 lbs 11/29/2012 Blood Pressure 1: 126/82 Code: 8480-6 BMI: 34.4 Code: 53445-5 Heart Rate 1: 84 bpm Height: 5'2" Respiratory Rate: 20 bpm Temperature: 36 .7 (C) / 98.0 (F) Weight: 188 lbs 11/12/2012 Blood Pressure 1: 110/62 Code: 8480-6 BMI: 34.8 Code: 76684-1 Heart Rate 1: 64 bpm Height: 5'2" Temperature: 36.7 (C) / 98.1 (F) Weight: 190 lbs 07/30/2012 Blood Pressure 1: 124/82 Code: 8480-6 BMI: 36.0 Code: 50468-4 Heart Rate 1: 84 bpm Height: 5'2" Respiratory Rate: 20 bpm Temperature: 36 .5 (C) / 97.7 (F) Weight: 197 lbs 06/04/2012 Blood Pressure 1: 118/70 Code: 8480-6 BMI: 36.2 Code: 59268-2 Heart Rate 1: 64 bpm Height: 5'2" Temperature: 37.1 (C) / 98.7 (F) Weight: 198 lbs 12/21/2011 Blood Pressure 1: 132/80 Code: 8480-6 BMI: 33.3 Code: 77511-2 Heart Rate 1: 64 bpm Height: 5'2" Respiratory Rate: 20 bpm Temperature: 36 .6 (C) / 97.8 (F) Weight: 182 lbs 10/07/2011 Blood Pressure 1: 128/72 Code: 8480-6 BMI: 34.4 Code: 90703-8 Heart Rate 1: 80 bpm Height: 5'2" Respiratory Rate: 20 bpm Temperature: 36 .8 (C) / 98.2 (F) Weight: 188 lbs 09/05/2011 Blood Pressure 1: 106/72 Code: 8480-6 BMI: 33.3 Code: 66569-2 Heart Rate 1: 76 bpm Height: 5'2" Respiratory Rate: 20 bpm Temperature: 36 .6 (C) / 97.9 (F) Weight: 182 lbs 04/28/2011 Blood Pressure 1: 110/70 Code: 8480-6 BMI: 34.4 Code: 14779-9 Heart Rate 1: 60 bpm Height: 5'2" Temperature: 37.0 (C) / 98.6 (F) Weight: 188 lbs 04/13/2011 Blood Pressure 1: 106/84 Code: 8480-6 BMI: 34.4 Code: 57600-1 Heart Rate 1: 80 bpm Height: 5'2" Respiratory Rate: 20 bpm Temperature: 36 .6 (C) / 97.8 (F) Weight: 188 lbs 02/04/2011 Blood Pressure 1: 108/76 Code: 8480-6 BMI: 33.7 Code: 78816-5 Heart Rate 1: 74 bpm Height: 5'2" Weight: 184 lbs 12/06/2010 Blood Pressure 1: 120/72 Code: 8480-6 BMI: 33.3 Code: 97772-2 Heart Rate 1: 76 bpm Height: 5'2" [...] 1: 118/66 Code: 8480-6 BMI: 32.6 Code: 53287-9 Heart Rate 1: 68 bpm Height: 5'2" Temperature: 36.7 (C) / 98.1 (F) Weight: 178 lbs 09/01/2009 Blood Pressure 1: 118/76 Code: 8480-6 BMI: 34.6 Code: 87444-4 Heart Rate 1: 76 bpm Height: 5'2" Temperature: 36.5 (C) / 97.7 (F) Weight: 189 lbs Functional Status No Functional Status data Reason For Visit Reason For Visit Effective Dates Notes follow up 01/15/2019 sore throat 07/20/2018 lab draw 06/29/2018 well woman exam (40-65 years) 06/11/2018 Annual Wel lness Annual Checkup 04/05/2017 Wellness Physical, l ast normal mammogram 4-4-16, last colonoscopy was about 5 years ago [...] 02/06/10 sinusitis 02/03/2010 follow up 01/27/2010 from [facility]-dx w ith UTI/migraine and given medications but hasn't filled anything yet headache 01/25/2010 shaking lab draw 12/09/2009 well woman exam (40-65 years) 12/08/2009 back pain 09/01/2009 low back pain Encounters Encounter Performer Location Codes Date ([id number]) OFFICE/OUTPATIENT VISIT EST Diagnosis: Essential (primary) hypertension[ICD10: I10] Diagnosis: Encounter for therapeutic drug level monitoring[ICD10: Z51.81] Silvia CHAUDHARY [email or web address] [employer] CPT-4: 21520 01/15/2019 ([id number]) OFFICE/OUTPATIENT VISIT EST Diagnosis: Acute bronchitis, unspecified[ICD10: J20.9] Diagnosis: Acute recurrent maxillary sinusitis[ICD10: J01.01] Nicol Rivas [facility] CPT-4: 97681 07/20/2018 ([id number]) NURSE/OUTPATIENT VISIT EST Diagnosis: Encounter for general adult medical examination without abnormal findings[ICD10: Z00.00] Diagnosis: Mixed hyperlipidemia[ICD10: E78.2] Caren GARBERMANUELA HECTOR [facility] CPT-4: 71499 06/29/2018 ([id number]) PREV VISIT EST AGE 40-64 Diagnosis: Encounter for general adult medical examination without abnormal findings[ICD10: Z00.00] Diagnosis: Encounter for screening mammogram for malignant neoplasm of breast[ICD10: Z12.31] Diagnosis: Essential (primary) hypertension[ICD10: I10] Diagnosis: Migraine with aura, not intractable, without status migrainosus[ICD10: G43.109] Diagnosis: VACCINE FOR TDAP[ICD10: Z23] Caren CHAUDHARY Evelyn [facility] CPT-4: 52564 06/11/2018 ([id number]) PREV VISIT EST AGE 40-64 Diagnosis: Encounter [...] in unspecified joint[ICD10: M25.50] Caren CHAUDHARY Evelyn [facility] CPT-4: 15968 04/05/2017 ([id number]) OFFICE/OUTPATIENT VISIT EST Diagnosis: Acute upper respiratory infection, unspecified[ICD10: J06.9] Diagnosis: Acute maxillary sinusitis, unspecified[ICD10: J01.00] Chiara Phelan CAREN Evelyn Meusonic [facility] CPT-4: 43493 02/12/2016 ([id number]) OFFICE/OUTPATIENT VISIT EST Diagnosis: Acute upper respiratory infection, unspecified[ICD10: J06.9] Diagnosis: Acute maxillary sinusitis, unspecified[ICD10: J01.00] Chiara ANDERS DO [facility] CPT-4: 84948 01/25/2016 ([id number]) OFFICE/OUTPATIENT VISIT EST Diagnosis: Urinary tract infection, site not specified[ICD10: N39.0] Chiara ANDERS DO [facility] CPT-4: 38924 10/01/2015 ([id number]) PREV VISIT EST AGE 40-64 Diagnosis: Encounter for gynecological examination (general) (routine) without abnormal findings[ICD10: Z01.419] Diagnosis: Encounter for general adult medical examination without abnormal findings[ICD10: Z00.00] Diagnosis: Migraine, unspecified, not intractable, without status migrainosus[ICD10: G43.909] Diagnosis: Essential (primary) hypertension[ICD10: I10] Caren ANDERS DO [facility] CPT-4: 90879 08/04/2015 ([id number]) OFFICE/OUTPATIENT VISIT EST Diagnosis: Menopausal and female climacteric states[ICD10: N95.1] Diagnosis: Dysuria[ICD10: R30.0] Caren ANDERS Privy [facility] CPT-4: 16268 05/27/2015 OFFICE/OUTPATIENT VISIT EST Diagnosis: Persistent migraine 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 cerebral infarction, intractable, with status migrainosus[ICD10: G43.511] Diagnosis: Unspecified convulsions[ICD10: R56.9] Caren ANDERS Privy [facility] CPT-4: 53130 03/10/2015 ([id number]) OFFICE/OUTPATIENT VISIT EST Diagnosis: HYPERLIPIDEMIA NEC/NOS[ICD9: 272.4] Diagnosis: HYPERTENSION[ICD9: 401.9] Diagnosis: MALAISE AND FATIGUE[ICD9: 780.79] Diagnosis: ANEMIA NOS[ICD9: 285.9] Caren TA Privy [facility] CPT-4: 36448 07/29/2014 ([id number]) PREV VISIT EST AGE 40-64 Diagnosis: ROUTINE MEDICAL EXAM[ICD9: V70.0] Diagnosis: HYPERTENSION[ICD9: 401.9] Diagnosis: MIGRAINE NOS/NOT INTRCBL[ICD9: 346.90] Diagnosis: GERD[ICD9: 530.81] [facility]ajni [facility] 36113 06/30/2014 ([id number]) OFFICE/OUTPATIENT VISIT EST Diagnosis: ALLERGIC RHINITIS[ICD9: 477.9] Diagnosis: DERMATITIS NOS[ICD9: 692.9] Caren GARBERLINE Evelyn ARANGO [facility] CPT-4: 83559 08/12/2013 OFFICE/OUTPATIENT VISIT EST Diagnosis: HEMATURIA NOS[ICD9: 599.70] Diagnosis: COUGH[ICD9: 786.2] Diagnosis: BRONCHITIS, ACUTE[ICD9: 466.0] Diagnosis: URINARY TRACT INFECTION[ICD9: 599.0] Lyndsey GreshamRajni [facility] CPT-4: 27163 05/31/2013 OFFICE/OUTPATIENT VISIT EST Diagnosis: COUGH[ICD9: 786.2] Diagnosis: SINUSITIS, ACUTE[ICD9: 461.9] Diagnosis: FEBRILE ILLNESS[ICD9: 780.60] Lyndsey GreshamRajni [facility] CPT-4: 25059 05/27/2013 ([id number]) OFFICE/OUTPATIENT VISIT EST Diagnosis: DERMATITIS NOS[ICD9: 692.9] Diagnosis: Tinea cruris[ICD9: 110.3] Caren GARBERLINE MpRajni [facility] CPT-4: 50204 02/26/2013 OFFICE/OUTPATIENT VISIT EST Diagnosis: Rash[ICD9: 782.1] Anni Brennan CAREN Mp[facility]ajni [facility] T-[facility]: 39609 11/29/2012 OFFICE/OUTPATIENT VISIT EST Diagnosis: COUGH[ICD9: 786.2] Diagnosis: SINUSITIS, ACUTE[ICD9: 461.9] Diagnosis: PHARYNGITIS, ACUTE[ICD9: 462] Caren Chago CAREN MpRajni [facility] CPT-4: 78555 11/12/2012 OFFICE/OUTPATIENT VISIT EST Diagnosis: COUGH[ICD9: 786.2] Diagnosis: SINUSITIS, ACUTE[ICD9: 461.9] Diagnosis: Myalgia[ICD9: 729.1] Caren Robertelviscara CAREN MpRajni [facility] CPT-4: 25471 07/30/2012 ([id number]) OFFICE/OUTPATIENT VISIT EST Diagnosis: JOINT PAIN-UNSPEC[ICD9: 719.40] Diagnosis: Rash and nonspecific skin eruption[ICD9: 782.1] [facility]: 80708 06/05/2012 OFFICE/OUTPATIENT VISIT EST Diagnosis: Rash[ICD9: 782.1] Diagnosis: Joint pain[ICD9: 719.40] Caren BRENNAN [facility] CPT-4: 52912 06/04/2012 ([id number]) PREV VISIT EST AGE 40-64 Diagnosis: ROUTINE GYNE EXAM[ICD9: V72.31] Diagnosis: ROUTINE MEDICAL EXAM[ICD9: V70.0] Diagnosis: MIGRAINE NOS/NOT INTRCBL[ICD9: 346.90] Caren Rivas [facility] CPT-4: 79242 12/21/2011 OFFICE/OUTPATIENT VISIT EST Diagnosis: Hemorrhoid[ICD9: 455.6] Diagnosis: Constipation[ICD9: 564.00] Diagnosis: Rash[ICD9: 782.1] Caren [facility]amRajni [facility] CPT-[facility]: 28632 10/07/2011 OFFICE/OUTPATIENT VISIT EST Diagnosis: HYPERTENSION[ICD9: 401.9] Diagnosis: MIGRAINE NOS/NOT INTRCBL[ICD9: 346.90] Diagnosis: DIZZINESS/VERTIGO[ICD9: 780.4] Diagnosis: EUSTACHIAN TUBE DYSFUNCTION[ICD9: 381.81] Diagnosis: Plantar warts[ICD9: 078.12] Caren ACEVESQUELINE MpRajni Obed [facility] CPT-4: 60103 09/05/2011 OFFICE/OUTPATIENT VISIT EST Diagnosis: SINUSITIS, ACUTE[ICD9: 461.9] Diagnosis: COUGH[ICD9: 786.2] Diagnosis: PHARYNGITIS, ACUTE[ICD9: 462] Diagnosis: DIARRHEA[ICD9: 787.91] Caren Joneselviscara GARBERCAREN MpRajni [facility] CPT-4: 82217 04/28/2011 OFFICE/OUTPATIENT VISIT EST Diagnosis: Finger pain[ICD9: 729.5] Diagnosis: Nasal pain[ICD9: 478.19] Diagnosis: MIGRAINE NOS/NOT INTRCBL[ICD9: 346.90] Diagnosis: Metrorrhagia[ICD9: 626.6] Caren Robertelviscara CAREN [facility]Rajni [facility] CPT-4: 27041 04/13/2011 OFFICE/OUTPATIENT VISIT EST Diagnosis: Frequent urination[ICD9: 788.41] Caren CHAUDHARY [facility]aj[facility] CPT-4: 19087 02/04/2011 PREV VISIT EST AGE 40-64 Anni Brennan CAREN [facility] CPT-4: 98669 12/06/2010 SPECIMEN HANDLING Anni Brennan [facility] CPT-4: 03031 12/06/2010 ([id number]) OFFICE/OUTPATIENT VISIT, EST Caren Robertdinh [facility] CPT-4: 43907 04/14/2010 ([id number]) OFFICE/OUTPATIENT VISIT, EST Caren Oredinh [facility] QUELINE [facility] CPT-4: 44344 02/16/2010 ([id number]) OFFICE/OUTPATIENT VISIT, EST Caren ACE[facility]UL[facility]GETALINE [facility] CPT-4: 54953 02/03/2010 ([id number]) OFFICE/OUTPATIENT VISIT, EST Caren Robertdinh [facility] CPT-4: 84246 01/27/2010 ([id number]) OFFICE/OUTPATIENT VISIT, EST Caren [facility] CPT-4: 09823 01/25/2010 ([id number]) PREV VISIT, EST, AGE 40-64 Anni GARBERLINE SRajni [facility] CPT-4: 87154 12/08/2009 ([id number]) OFFICE/OUTPATIENT VISIT, EST Caren Chago [facility] CPT-4: 48814 09/01/2009 Plan of Care Planned Activity Notes Codes Status Date Visit Diagnosis Plan: Essential (primary) hypertension Discussion: stable on current medications. rtc 6 months for annual or sooner if needed. will recheck labs at annual. ICD-9 : 401.9 ICD-10 : I10 01/15/2019 App[facility]ment: [facility]rez [address] [facility] FO[facility] 01/15/2019 Patient Education: High Blood [...] : J20.9 07/20/2018 [facility]ment[facility] [address] [facility] 07/20/2018 Patient Education: prednisone- [employer] Coupon [id number] Completed 07/20/2018 [facility] Education: [facility] Saving AutoInj - Ventolin HFA - 18-64 - Dynamic Portal ID Completed 07/20/2018 Patient Education: azithromycin- [employer] Coupon [id number] Completed 07/20/2018 App[facility]ment: [facility]Ptel[facility] [phone] [facility] [facility] 06/29/2018 Visit Diagnosis Plan: Migraine with aura , not intractable, without status migrainosus Discussion: Stable after PT and doing da beth stretches ICD-9 : 346.20 ICD-10 : G43.109 06/11/2018 Visit Diagnosis Plan: Encounter for [facility] adult medical examination without abnormal findings Discussion: Will return in 2 weeks for f asting lab Tdap given Will check on Shingrix Mediterranean diet with combo cardio/weight bearing exercise ICD-9 : V70.9 ICD-10 : Z00.00 06/11/2018 Visit Diagnosis Plan: Encounter for scre ening mammogram for malignant neoplasm of breast Discussion: Mammogram ordered ICD-9 : V76.12 ICD-10 : Z12.31 06/11/2018 Appointment: Caren Anders WPtel[facility] [phone] [facility] Annual Well Visit 06/11/2018 Patient Education: Valtrex- [employer] Coupon [id number] Completed 06/11/2018 Patient Education: mupirocin calcium- [employer] Coupon [id number] Completed 06/11/2018 Visit Diagnosis Plan: Persistent migrain [...] ICD-10 : Z00.00 04/05/2017 Visit Diagnosis Plan: Encounter for gyne cological examination (general) (routine) without abnormal findings Discussion: Pap done Mammogram ordered ICD-9 : V72.31 ICD-10 : Z01.419 04/05/2017 Appointment: Caren Anders WPtel: [address] [place] [address] Annual Well Visit 04/05/2017 Patient Education: Patient Medication Summary Completed 04/05/2017 Care Plan: Referral Order SNOMED-CT : 30 [id number] Pending 04/05/2017 Patient Education: Patient Medication Summary Completed 08/02/2016 Care Plan: MAMMOGRAM SCREENING LOINC : 2 6347-5 Pending 08/02/2016 Visit Plan: Injection as above Rx for le vaquin - pt reports she tolerates well Continue supportive care Follow up PRN 02/12/2016 Appointment: Chiara Phelan [address] [place], [place] [phone] 02/10 confirmed~sl ACUTE ILLNESS 02/12/2016 Patient Education: Patient Medication Summary Completed 02/12/2016 Visit Plan: Rxs as above OTC meds review ed - avoid decongestants Rest, fluids, vicks, humidifier, etc Follow up PRN 01/25/2016 Appointment: Chiara Phelan [address] [place], [place] [phone] ACUTE ILLNESS 01/25/2016 Patient Education: Patient Medication Summary Completed 01/25/2016 Visit Plan: Office dip abnormal Culture pending Rx as above Supportive care reviewed Follow up PRN 10/01/2015 [facility]ment: [facility] [address] [facility] [facility] 10/01/2015 Patient Education: Patient Medication Summary Completed 10/01/2015 Visit Plan: Obtain lab results Pap done Mammogram ordered Patient awaiting on Dr. Cuello to restart botox for migraines 08/04/2015 Appointment: Caren Anders WPtel: [phone] [facility] 08/02confirmed-sp Annual Well Visit 08/04/2015 Patient Education: Patient Medication Summary Completed 08/04/2015 Care Plan: MAMMOGRAM SCREENING LOINC : 2 6347-5 Ordered 08/04/2015 Patient Education: Patient Medication Summary Completed 07/29/2015 Care Plan: CBC Ordered 07/29/2015 Visit Plan: Discussed likely perimenopau se Will observe through July and then at [facility] with fasting lab including hormone levels If bleeding returns will proceed with pelvic US Check into chiropractor for manipulation for right low back/hip pain 05/27/2015 Appointment: Caren Anders WPtel[facility] [phone] [facility] 05/26/15 vm cn 05/26/15 appt confirmed cn ACUTE ILLNESS 05/27/2015 Patient Education: Patient Medication Summary Completed 05/27/2015 Referral: Ignacio Esposito WPtel: [facility] [address] [id number] [place] Referral Initiated 04/07/2015 Referral: Caren Anders WPtel[facility] [phone] [facility] 03/26/15 Arrival time 9:30 am Procedure 9:45 am. @ [email or web address] [address] [place] [address] Matthew 307 Come sleep deprived(4 hours or less) clean hair, no product in hair, no caffeen Initiated 03/26/2015 Visit Plan: Toradol now with compazine p o when gets home Proceed with updated EEG/neurology evaluation--discussed may need to go on antiseizure meds and drop out of migraine study No driving for 6mos Discussed with Dr[address] Cuello at [facility] in [place]--he wants to see her in next 1-2weeks 03/10/2015 Appointment: Caren Anders WPtel: [address] [place] [address] ACUTE ILLNESS 03/10/2015 Patient Education: Patient Medication Summary Completed 03/10/2015 Appointment: Caren Anders WPtel: [address] [place] [address] 07/29/2014 Patient Education: Patient Medication Summary Completed 07/29/2014 Appointment: Caren Anders WPtel: [address] [place] [address] Annual Well Visit 06/30/2014 Patient Education: Patient Medication Summary Completed 06/30/2014 Appointment: Caren Anders WPtel: [address] [place] [address] Annual Well Visit 06/18/2014 Appointment: Caren Anders WPtel: [address] [place] [address] ACUTE ILLNESS 06/03/2014 Appointment: Lyndsey Thorpe WPtel: [address] [place] [address] 02/05 ACUTE ILLNESS 02/06/2014 Visit Plan: Benadryl 25mg q HS Claritin 10mg q AM Prednisone for 1week Call in 1week on cough and rash 08/12/2013 Appointment: Caren Anders WPtel: [address] [place] [address] 08/09 FOLLOW UP 08/12/2013 Patient Education: Patient Medication Summary Completed 08/12/2013 Appointment: Lyndsey Thorpe WPtel: [address] [place] [address] ACUTE ILLNESS 05/31/2013 Patient Education: Patient Medication Summary Completed 05/31/2013 Appointment: Lyndsey Thorpe: [address] [place], [place] [phone] ACUTE ILLNESS 05/27/2013 Patient Education: Patient Medication Summary Completed 05/27/2013 Appointment: Caren Anders WPtel: [address] [place], [place] [phone] 02/25 ACUTE ILLNESS 02/26/2013 Patient Education: Patient [...] Mycoplasma infection) 11/29/2012 Appointment: Anni Brennan WPtel: [address] [place], [place] [phone] FOLLOW UP 11/29/2012 Patient Education: Patient Medication Summary Completed 11/29/2012 Appointment: Anni Brennan WPtel: [address] [place], [place] [phone] ACUTE ILLNESS 11/12/2012 Patient Education: Patient Medication Summary Completed 11/12/2012 Visit Plan: Azithromyacin and medrol dos e pack. Will focus on hydration and rest. Pt. will notify if symptoms worsen or do not improve. 07/30/2012 Appointment: Anni Brennan WPtel: [address] [place], [place] [phone] ACUTE ILLNESS 07/30/2012 Patient Education: Patient Medication Summary Completed 07/30/2012 Appointment: Caren Anders WPtel: [address] [place], [place] [phone] US LAB 06/05/2012 Patient Education: Patient Medication [...] from scratching. 06/04/2012 Appointment: Anni Brennan WPtel: [address] [place] [address] ACUTE ILLNESS 06/04/2012 Patient Education: Patient Medication Summary Completed 06/04/2012 Visit Plan: Pap done Mammo ordered Pt wong s started botox for Migraines--next shots end of this month Fasting lab in 12/21/2011 Appointment: Caren Anders WPtel: [address] [place], [place] [phone] PAP 12/21/2011 Patient Education: Patient Medication Summary Completed 12/21/2011 Visit Plan: Encouraged fluids and contin ued use of stool softener. Pt. reports long standing concerns with constipation. Discussed that will likely proceed with colonoscopy. Referral to Dr. Long. Will apply betamethasone to rash and use rectal foam and topical dibucaine. 10/07/2011 Appointment: Anni Brennan WPtel: [address] [place] [address] ACUTE ILLNESS 10/07/2011 Patient Education: Patient Medication Summary Completed 10/07/2011 Visit Plan: Lisinopril 1/2 in AM and Ate nolol 1/2 pm for 5 days then stop lisinopril and increase atenolol to 25mg q PM Check 2-D Echo Long discusssion about Botox and clinical trial Start omnaris q HS Pt will try otc wart remover for feet for now 09/05/2011 Appointment: Caren Anders WPtel: [address] [place], [place] [phone] FOLLOW UP 09/05/2011 Patient Education: Patient Medication Summary Completed 09/05/2011 Visit Plan: imodium. Discussed the impor tance of hydration. Phoned Cefuroxime and codeine/guiaf into [facility]. Pt. will notify if symptoms worsen. 04/28/2011 Appointment: Anni Brennan WPtel: [address] [place], [place] [phone] ACUTE ILLNESS 04/28/2011 Patient Education: Patient Medication Summary Completed 04/28/2011 Visit Plan: Use Aleve BID Observe nose a nd finger Check Chem 7, estradiol, FSH, LH, TSH 04/13/2011 Appointment: Caren Anders WPtel: [address] [place], [place] [phone] ACUTE ILLNESS 04/13/2011 Patient Education: Patient Medication Summary Completed 04/13/2011 Appointment: Anni Brennan WPtel: [address] [place] [address] ACUTE ILLNESS 02/04/2011 Patient Education: Patient Medication Summary Completed 02/04/2011 Appointment: Caren Anders WPtel: [address] [place] [address] LAB 12/21/2010 Patient Education: Patient Medication Summary Completed 12/21/2010 Appointment: Anni Brennan WPtel: [address] [place], [place] [phone] PAP 12/06/2010 Patient Education: Patient Medication [...] colon cancer 04/14/2010 Appointment: Caren Anders WPtel: [address] [place], [place] [phone] FOLLOW UP 04/14/2010 Patient Education: Patient Medication Summary Completed 04/14/2010 Appointment: Caren Anders WPtel: [address] [place], [place] [phone] LAB 03/17/2010 Visit Plan: Increase Topamax to 50mg BID Cont Flexeril See Neurology next week 02/16/2010 Appointment: Caren Anders WPtel: [address] [place], [place] [phone] FOLLOW UP 02/16/2010 Patient Education: Patient Medication Summary Completed 02/16/2010 Visit Plan: Pt will seek re-eval if symp toms worsen. 02/03/2010 Appointment: Anni Brennan WPtel: [address] [place] [address] ACUTE ILLNESS 02/03/2010 Patient Education: Patient Medication Summary Completed 02/03/2010 Visit Plan: Start Topamax for prophylaxi s See Neurology Discussed triggers such as chocolate Start Cipro as ordered May try Midrin and Compazine as ordered Off work rest of week 01/27/2010 Appointment: Caren Anders WPtel: [address] [place] [address] ER Follow UP 01/27/2010 Patient Education: Patient Medication Summary Completed 01/27/2010 Visit Plan: Check CT head Suspect comple x migraine vs TIA--esequiel await CT results 01/25/2010 Appointment: Caren Anders WPtel: [address] [place] [address] ACUTE ILLNESS 01/25/2010 Patient Education: Patient Medication Summary Completed 01/25/2010 Appointment: Caren Anders WPtel: [address] [place] [address] LAB 12/09/2009 Patient Education: Patient Medication Summary Completed 12/09/2009 Appointment: Anni Brennan WPtel: [address] [place] [address] PAP 12/08/2009 Patient Education: Patient Medication Summary Completed 12/08/2009 Appointment: Caren Anders WPtel: [address] [place], [place] [phone] ACUTE ILLNESS 09/01/2009 Patient Education: Patient Medication Summary Completed 09/01/2009 Appointment: Caren Anders WPtel: [address] [place], [place] [phone] LAB 08/26/2009 Patient Education: Patient Medication Summary Completed 08/26/2009 Referral: Partha Long WPtel: [address] [id number] [place] Referral sent. Dr. Coburn's office will [...] likely perimenopause Will observe through July and fwup then at [facility] with fasting lab including hormone levels If bleeding returns will proceed with pelvic US Check into chiropractor for manipulation for right low back/hip pain . Toradol now with compazine po when get s home Proceed with updated EEG/neurology evaluation--discussed may need to go on antiseizure meds and drop out of migraine study No driving for 6mos Discussed with Dr. Cuello at [facility] in [place]--he wants to see her in next 1-2weeks [...]
--- OUTSIDE RECORDS SUMMARY | 2019-10-11 18:34 | XMS REPORT | CCD ---
Author Author Claudia Anders D.O. Organization [facility] Address [address] [place] [address] Phone Care Team Providers Care Conference Translator Name Role Phone Caren Anders D.O., PP Unavailable CCM Unavailable Summary Purpose Interface Exchange Insurance Providers Payer name Policy type / Coverage type Covered alliance party ID Effective Begin Date Effective End Date Blue Cross Blue Shield Blue Cross/Bl ue Shield [id number] Un known Family history Father Diagnosis Age At Onset Congestive heart failure Unknown Cancer Unknown Diabetes mellitus Type 2 Unknown Social History Social History Element Codes Description Effective Dates Tobacco history SNOMED CT: 6066168 Former smoker 02/03/2015 Allergies, Adverse Reactions, Alerts Substance Reaction Codes Entered Date Inactivated Date Status * NO KNOWN FOOD ISABELLE RGIES Unknown 09/01/2009 No Inactive Date Active _ Unknown 09/01/2009 No Inactive Date Active PENICILLINS hives Unknown 09/01/2009 No In active Date Active Past Medical History Illness Codes Condition Status Onset Date Resolved Date Encounter for therap eutic drug level monitoring ICD-9: V58.83 ICD-10: Z51.81 Active 01/15/2019 Unknown Essential (primary) hypertension ICD-9: 401.9 ICD-10: I10 Active 06/30/2014 Unknown Acute bronchitis, un specified ICD-9: 466.0 ICD-10: J20.9 Active 07/20/2018 Unknown Acute recurrent maxi llary sinusitis ICD-9: 461.0 ICD-10: J01.01 Active 07/20/2018 Unknown Encounter for genera l adult medical examination without abnormal findings ICD-9: V70.9 ICD-10: Z00.00 Active 08/03/2015 Unknown Mixed hyperlipidemia ICD-9: 272.4 ICD-10: E78.2 Active 07/29/2014 Unknown Encounter for screen ing mammogram for malignant neoplasm of breast ICD-9: V76.12 ICD-10: Z12.31 Active 08/02/2016 Unknown Migraine with aura, not intractable, without status migrainosus ICD-9: 346.20 ICD-10: G43.109 Active 06/11/2018 Unknown VACCINE FOR TDAP ICD-9: V06.1 ICD-10: Z23 Active 06/11/2018 Unknown Encounter for gyneco logical examination (general) (routine) without abnormal findings ICD-9: V72.31 ICD-10: Z01.419 Active 04/05/2017 Unknown Pain in unspecified joint ICD-9: 719.40 ICD-10: M25.50 Active 04/05/2017 Unknown Persistent migraine 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 cerebral infarction, intractable, with status migrainosus ICD-9: 346.53 ICD-10: G43.511 Active 03/09/2015 Unknown Acute maxillary sinu sitis, unspecified ICD-9: 461.0 ICD-10: J01.00 Active 02/11/2016 Unknown Acute upper respirat ory infection, unspecified ICD-9: 465.9 ICD-10: J06.9 Active 02/11/2016 Unknown Urinary tract infect ion, site not specified ICD-9: 599.0 ICD-10: N39.0 Active 10/01/2015 Unknown Migraine, unspecifie d, not intractable, without status migrainosus ICD-9: 346.90 ICD-10: G43.909 Active 06/30/2014 Unknown Anemia, unspecified ICD- 9: 285.9 ICD-10: D64.9 Active 07/29/2014 Unknown Dysuria ICD-9: 788.1 ICD-10: R30.0 Active 05/26/2015 Unknown Menopausal and femal e climacteric states ICD-9: 627.2 ICD-10: N95.1 Active 05/26/2015 Unknown Unspecified convulsions ICD-9: 780.39 ICD-10: R56.9 Active 03/09/2015 Unknown ANEMIA NOS ICD-9: 285.9 Active 07/29/2014 Unknow n HYPERLIPIDEMIA NEC/NOS ICD-9: 272.4 Active 07/29/2014 Unknown MALAISE AND FATIGUE ICD- 9: 780.79 Active 07/29/2014 Unknown GERD ICD-9: 530.81 Active 06/30/2014 Unknow n HYPERTENSION ICD-9: 401.9 Active 06/30/2014 Unknown MIGRAINE NOS/NOT INT RCBL ICD-9: 346.90 Active Unknown ROUTINE MEDICAL EXAM ICD-9: V70.0 Active 06/30/2014 Unknown ALLERGIC RHINITIS ICD-9: 477.9 Active 08/12/2013 Unknown BRONCHITIS, ACUTE ICD-9: 466.0 Active 05/31/2013 Unknown HEMATURIA NOS ICD-9: 599.70 Active 05/31/2013 Unknown FEBRILE ILLNESS ICD-9: 780.60 Active 05/27/2013 Unknown DERMATITIS NOS ICD-9: 692.9 Active 02/26/2013 Unknown Tinea cruris ICD-9: 110.3 Active 02/26/2013 Unknown Myalgia ICD-9: 729.1 Active 07/30/2012 Unknow n Joint pain ICD-9: 719.40 Active 06/04/2012 Unknow n Hemorrhoid ICD-9: 455.6 Active 10/07/2011 Unknow n Rash ICD-9: 782.1 Active 10/07/2011 Unknow n DIZZINESS/VERTIGO ICD-9: 780.4 Active 09/05/2011 Unknown EUSTACHIAN TUBE DYSF UNCTION ICD-9: 381.81 Active Unknown Plantar warts ICD-9: 078.12 Active 09/05/2011 Unknown DIARRHEA ICD-9: 787.91 Active 04/28/2011 Unknow n PHARYNGITIS, ACUTE ICD- 9: 462 Active 04/28/2011 Unknown Finger pain ICD-9: 729.5 Active 04/13/2011 Unknow n Metrorrhagia ICD-9: 626.6 Active 04/13/2011 Unknown Nasal pain ICD-9: 478.19 Active 04/13/2011 Unknow n Frequent urination ICD- 9: 788.41 Active 02/04/2011 Unknown Constipation ICD-9: 564.00 Active 04/14/2010 Unknown COUGH ICD-9: 786.2 Active 02/03/2010 Unknow n SINUSITIS, ACUTE ICD-9: 461.9 Active 02/03/2010 Unknown Migraine, variant ICD-9: 346.20 Active 01/27/2010 Unknown ALTERED MENTAL STATUS ICD-9: 780.97 Active 01/25/2010 Unknown CEPHALGIA ICD-9: 784.0 Active 01/25/2010 Unknow n TREMOR NEC ICD-9: 333.1 Active 01/25/2010 Unknow n ROUTINE GYNE EXAM ICD-9: V72.31 Active 12/08/2009 Unknown Gastroesophageal ref lux disease Unknown Active 0 Unknown Hypertension Unknown Active 09/01/2009 Unknow n PAIN, LOWER BACK ICD-9: 724.2 Active 09/01/2009 Unknown SPASM OF MUSCLE ICD-9: 728.85 Active 09/01/2009 Unknown URINARY TRACT INFECTION ICD-9: 599.0 Active 08/26/2009 Unknown Problems Condition Codes Effectiv e Dates Condition Status Encounter for therap eutic drug level monitoring ICD-9: V58.83 ICD-10: Z51.81 01/15/2019 Active Essential (primary) hypertension ICD-9: 401.9 ICD-10: I10 06/30/2014 Active Acute bronchitis, un specified ICD-9: 466.0 ICD-10: J20.9 07/20/2018 Active Acute recurrent maxi llary sinusitis ICD-9: 461.0 ICD-10: J01.01 07/20/2018 Active Encounter for genera l adult medical examination without abnormal findings ICD-9: V70.9 ICD-10: Z00.00 08/03/2015 Active Mixed hyperlipidemia ICD-9: 272.4 ICD-10: E78.2 07/29/2014 Active Encounter for screen ing mammogram for malignant neoplasm of breast ICD-9: V76.12 ICD-10: Z12.31 08/02/2016 Active Migraine with aura, not intractable, without status migrainosus ICD-9: 346.20 ICD-10: G43.109 06/11/2018 Active VACCINE FOR TDAP ICD-9: V06.1 ICD-10: Z23 06/11/2018 Active Encounter for gyneco logical examination (general) (routine) without abnormal findings ICD-9: V72.31 ICD-10: Z01.419 04/05/2017 Active Pain in unspecified joint ICD-9: 719.40 ICD-10: M25.50 04/05/2017 Active Persistent migraine 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 cerebral infarction, intractable, with status migrainosus ICD-9: 346.53 ICD-10: G43.511 03/09/2015 Active Acute maxillary sinu sitis, unspecified ICD-9: 461.0 ICD-10: J01.00 02/11/2016 Active Acute upper respirat ory infection, unspecified ICD-9: 465.9 ICD-10: J06.9 02/11/2016 Active Urinary tract infect ion, site not specified ICD-9: 599.0 ICD-10: N39.0 10/01/2015 Active Migraine, unspecifie d, not intractable, without status migrainosus ICD-9: 346.90 ICD-10: G43.909 06/30/2014 Active Anemia, unspecified ICD- 9: 285.9 ICD-10: D64.9 07/29/2014 Active Dysuria ICD-9: 788.1 ICD-10: R30.0 05/26/2015 Active Menopausal and femal e climacteric states ICD-9: 627.2 ICD-10: N95.1 05/26/2015 Active Unspecified convulsions ICD-9: 780.39 ICD-10: R56.9 03/09/2015 Active ANEMIA NOS ICD-9: 285.9 07/29/2014 Active HYPERLIPIDEMIA NEC/NOS ICD-9: 272.4 07/29/2014 Active MALAISE AND FATIGUE ICD- 9: 780.79 07/29/2014 Active GERD ICD-9: 530.81 06/30/2014 Active HYPERTENSION ICD-9: 401.9 06/30/2014 Active MIGRAINE NOS/NOT INT RCBL ICD-9: 346.90 06/30/2014 Active ROUTINE MEDICAL EXAM [...] DIZZINESS/VERTIGO ICD-9: 780.4 09/05/2011 Active EUSTACHIAN TUBE DYSF UNCTION ICD-9: 381.81 09/05/2011 Active Plantar warts ICD-9: 078.12 09/05/2011 Active DIARRHEA ICD-9: 787.91 04/28/2011 Active PHARYNGITIS, ACUTE ICD- 9: 462 04/28/2011 Active Finger pain ICD-9: 729.5 04/13/2011 Active Metrorrhagia ICD-9: 626.6 04/13/2011 Active Nasal pain ICD-9: 478.19 04/13/2011 Active Frequent urination ICD- 9: 788.41 02/04/2011 Active Constipation ICD-9: 564.00 04/14/2010 Active COUGH ICD-9: 786.2 02/03/2010 Active SINUSITIS, ACUTE ICD-9: 461.9 02/03/2010 Active Migraine, variant ICD-9: 346.20 01/27/2010 Active ALTERED MENTAL STATUS ICD-9: 780.97 01/25/2010 Active CEPHALGIA ICD-9: 784.0 01/25/2010 Active TREMOR NEC ICD-9: 333.1 01/25/2010 Active ROUTINE GYNE EXAM ICD-9: V72.31 12/08/2009 Active Gastroesophageal ref lux disease Unknown 09/01/2009 Activ e Hypertension Unknown 09/01/2009 Active PAIN, LOWER BACK ICD-9: 724.2 09/01/2009 Active SPASM OF MUSCLE ICD-9: 728.85 09/01/2009 Active URINARY TRACT INFECTION ICD-9: 599.0 08/26/2009 Active Medications Medication Codes Instruc tions Start Date Stop Date Sta tus Fill Instructions Maxalt 10 mg tablet RxNorm: 291307 TAKE ONE TABLET BY MOUTH AT HEADACHE ONS ET. MAY REPEAT IN 2 HOURS IF HEADACHE REMAINS. MAX OF 2 TABLETS IN 24 HOURS 01/17/2019 02/12/2019 Ac tive Zantac 300 mg tablet RxNorm: 254589 TAKE ONE TABLET BY MOUTH EVERY NIGHT AT BEDTIME 01/15/2019 03/15/2019 Active atenolol 25 mg tablet RxNorm: 301403 Tablet(s) TAKE ONE TABLET BY MOUTH DAILY , NEEDS APPT. BEFORE FURTHER REFILLS 01/08/2019 02/06/2019 Active atenolol 25 mg tablet RxNorm: 988817 Tablet(s) TAKE ONE TABLET BY MOUTH DAILY , NEEDS APPT. BEFORE FURTHER REFILLS 12/31/2018 01/07/2019 Inactive atenolol 25 mg tablet RxNorm: 688362 TAKE ONE TABLET BY MOUTH DAILY, NEEDS AP PT. BEFORE FURTHER REFILLS 12/14/2018 12/31/2018 Inactive tizanidine 4 mg tablet RxNorm: 651225 TAKE ONE TABLET BY MOUTH EVERY 8 HOURS A S NEEDED FOR MUSCLE SPASMS 11/16/2018 12/25/2018 Inactive Naprosyn 500 mg tablet RxNorm: 212720 1 Tablet(s) PO BID 10/01/2018 01/28/2019 Active atenolol 25 mg tablet RxNorm: 072357 Tablet(s) TAKE ONE TABLET BY MOUTH DAILY . 10/01/2018 12/13/2018 In active Maxalt 10 mg tablet RxNorm: 169321 1 Tablet(s) PO at headache onset. May re peat in 2 hours if headache remains. Max of 2/24hr 10/01/2018 11/29/2018 Inactive atenolol 25 mg tablet RxNorm: 393409 TAKE ONE TABLET BY MOUTH DAILY. NEED APPOINTMENT BEFORE FURTHER REFILLS. 09/24/2018 09/30/2018 Inactive atenolol 25 mg tablet RxNorm: 457378 TAKE ONE TABLET BY MOUTH DAILY, NEEDS AP PT. BEFORE FURTHER REFILLS 09/11/2018 09/23/2018 Inactive Naprosyn 500 mg tablet RxNorm: 867461 1 Tablet(s) PO BID Due for annual labs a nd appointment 09/11/2018 09/30/2018 Inactive atenolol 25 mg tablet RxNorm: 416694 TAKE ONE TABLET BY MOUTH DAILY, NEEDS AP PT. BEFORE FURTHER REFILLS 08/29/2018 09/10/2018 Inactive doxycycline hyclate 100 mg tablet RxNorm: 2243585 1 Tablet(s) PO BID 07/27/2018 08/05/2018 Inactive doxycycline hyclate 100 mg tablet RxNorm: 0797075 1 Tablet(s) PO BID 07/27/2018 07/26/2018 Inactive Ventolin HFA 90 mcg/ actuation aerosol inhaler RxNorm: 5735448 2 Puff(s) INH Q6H 07/20/2018 08/18/2018 In active prednisone 20 mg tablet RxNorm: 606538 take 2 tabs for 3 days, then 1 tab for 3 days 07/20/2018 07/25/2018 Inactive azithromycin 250 mg tablet RxNorm: 994110 Take 2 tabs today and one tab days 2-5 07/20/2018 07/25/2018 In active z-pack atenolol 25 mg tablet RxNorm: 772284 TAKE ONE TABLET BY MOUTH DAILY, NEEDS AP PT. BEFORE FURTHER REFILLS 07/13/2018 08/26/2018 Inactive mupirocin 2 % topica l cream RxNorm: 257803 Application TOP BID 06/11/2018 01/14/2019 Inactive Valtrex 1 gram tablet RxNorm: 364273 1 Tablet(s) PO BID 06/11/2018 06/20/2018 Inactive atenolol 25 mg tablet RxNorm: 737104 1 Tablet(s) PO QD NEEDS APPOINTMENT BEFO RE FURTHER REFILLS 05/14/2018 07/12/2018 Inactive Naprosyn 500 mg tablet RxNorm: 381578 1 Tablet(s) PO BID Due for annual labs a nd appointment 04/12/2018 05/11/2018 Inactive Zantac 300 mg tablet RxNorm: 516148 TAKE ONE TABLET BY MOUTH EVERY NIGHT AT BEDTIME 04/09/2018 07/07/2018 Inactive tizanidine 4 mg tablet RxNorm: 514800 TAKE ONE TABLET BY MOUTH EVERY 8 HOURS A S NEEDED FOR MUSCLE SPASMS 02/20/2018 04/20/2018 Inactive Maxalt 10 mg tablet RxNorm: 590817 Tablet(s) TAKE ONE TABLET BY MOUTH NE EDED FOR HEADACHE 01/09/2018 03/09/2018 Inactive Naprosyn 500 mg tablet RxNorm: 496206 Tablet(s) TAKE ONE TABLET BY MOUTH TWICE A DAY 01/08/2018 04/12/2018 Inactive atenolol 25 mg tablet RxNorm: 430597 1 Tablet(s) PO QD 01/08/2018 05/14/2018 Inactive Naprosyn 500 mg tablet RxNorm: 894237 TAKE ONE TABLET BY MOUTH TWICE A DAY 12/10/2017 01/08/2018 In active tizanidine 4 mg tablet RxNorm: 653126 1 Tablet(s) PO Q8H as needed for muscle spasm 11/27/2017 11/26/2017 Inactive Maxalt 10 mg tablet RxNorm: 347051 TAKE ONE TABLET BY MOUTH NEEDED FOR H EADACHE 11/13/2017 01/09/2018 Inactive Naprosyn 500 mg tablet RxNorm: 833046 TAKE ONE TABLET BY MOUTH TWICE A DAY 11/13/2017 12/09/2017 In active atenolol 25 mg tablet RxNorm: 984635 1 Tablet(s) PO QD 09/06/2017 01/08/2018 Inactive Naprosyn 500 mg tablet RxNorm: 983879 1 Tablet(s) PO BID 09/04/2017 11/02/2017 Inactive Maxalt 10 mg tablet RxNorm: 667153 1 Tablet(s) PO as needed for headache 08/07/2017 11/12/2017 In active Naprosyn 500 mg tablet RxNorm: 106423 1 Tablet(s) PO BID 07/07/2017 09/04/2017 Inactive Naprosyn 500 mg tablet RxNorm: 253829 1 Tablet(s) PO BID TAKE ONE TABLET BY MO UTH TWICE A DAY 06/08/2017 07/07/2017 Inactive tizanidine 4 mg tablet RxNorm: 193928 1 Tablet(s) PO Q8H as needed for muscle spasm 05/10/2017 11/27/2017 Inactive atenolol 25 mg tablet RxNorm: 051021 1 Tablet(s) PO QD 05/10/2017 09/06/2017 Inactive Maxalt 10 mg tablet RxNorm: 294208 1 Tablet(s) PO as needed for headache 05/10/2017 08/06/2017 In active atenolol 25 mg tablet RxNorm: 429152 1 Tablet(s) PO QD LAST REFILL---NEEDS UP DATED LAB AND APPOINTMENT 04/04/2017 05/03/2017 Inactive Zantac 300 mg tablet RxNorm: 286963 Tablet(s) TAKE ONE TABLET BY MOUTH EVERY NIGHT AT BEDTIME 04/03/2017 07/31/2017 Inactive atenolol 25 mg tablet RxNorm: 050471 1 Tablet(s) PO QD LAST REFILL---NEEDS UP DATED LAB AND APPOINTMENT 03/02/2017 04/04/2017 Inactive atenolol 25 mg tablet RxNorm: 569641 1 Tablet(s) PO QD LAST REFILL---NEEDS UP DATED LAB AND APPOINTMENT 02/01/2017 05/10/2017 Inactive Naprosyn 500 mg tablet RxNorm: 768482 1 Tablet(s) PO BID TAKE ONE TABLET BY MO UT TWICE A DAY 01/02/2017 06/08/2017 Inactive atenolol 25 mg tablet RxNorm: 350086 1 Tablet(s) PO QD Need Labs and appointm ent 12/26/2016 02/01/2017 In active Naprosyn 500 mg tablet RxNorm: 979483 1 Tablet(s) PO BID TAKE ONE TABLET BY MO UTH TWICE A DAY 12/05/2016 01/02/2017 Inactive Naprosyn 500 mg tablet RxNorm: 252081 Tablet(s) TAKE ONE TABLET BY MOUTH TWICE A DAY 11/07/2016 12/05/2016 Inactive Naprosyn 500 mg tablet RxNorm: 470399 Tablet(s) TAKE ONE TABLET BY MOUTH TWICE A DAY 10/06/2016 11/07/2016 Inactive Naprosyn 500 mg tablet RxNorm: 470273 TAKE ONE TABLET BY MOUTH TWICE A DAY 09/04/2016 10/03/2016 In active Naprosyn 500 mg tablet RxNorm: 256617 TAKE ONE TABLET BY MOUTH TWICE A DAY 07/01/2016 08/29/2016 In active Naprosyn 500 mg tablet RxNorm: 095543 TAKE ONE TABLET BY MOUTH TWICE A DAY 04/27/2016 06/25/2016 In active Zantac 300 mg tablet RxNorm: 616160 TAKE ONE TABLET BY MOUTH EVERY NIGHT AT BEDTIME 03/09/2016 04/03/2017 Inactive Levaquin 500 mg tablet RxNorm: 984778 1 Tablet(s) PO QD 02/12/2016 02/18/2016 Inactive azithromycin 250 mg tablet RxNorm: 762401 2 Tablet(s) PO on day one then 1 tab on days 2-5 01/25/2016 01/24/2016 Inactive Medrol (Camilo) 4 mg ta blets in a dose pack RxNorm: 147686 Take as directed 01/25/2016 04/04/2017 In active Naprosyn 500 mg tablet RxNorm: 444607 1 Tablet(s) PO BID 01/15/2016 04/13/2016 Inactive Brisdelle 7.5 mg cap violeta RxNorm: 9741622 1 Capsule(s) PO QHS 12/10/2015 04/04/2017 Inactive atenolol 25 mg tablet RxNorm: 050013 TAKE ONE TABLET BY MOUTH DAILY 12/04/2015 12/26/2016 In active Maxalt 10 mg tablet RxNorm: 364450 1 Tablet(s) PO as needed for headache 10/05/2015 05/09/2017 In active Bactrim DS 800 mg-16 0 mg tablet RxNorm: 324358 1 Tablet(s) PO BID 10/01/2015 10/07/2015 Inactive Zantac 300 mg tablet RxNorm: 035976 Tablet(s) TAKE ONE TABLET BY MOUTH EVERY NIGHT AT BEDTIME 10/01/2015 11/29/2015 Inactive atenolol 25 mg tablet RxNorm: 715438 TAKE ONE TABLET BY MOUTH DAILY 06/09/2015 08/07/2015 In active Naprosyn 500 mg tablet RxNorm: 787109 TAKE ONE TABLET BY MOUTH TWICE A DAY 05/29/2015 01/15/2016 In active Zantac 300 mg tablet RxNorm: 872642 Tablet(s) TAKE ONE TABLET BY MOUTH EVERY NIGHT AT BEDTIME 03/30/2015 10/01/2015 Inactive Compazine 10 mg tablet RxNorm: 968799 1 Tablet(s) PO TID as needed for nausea 03/10/2015 05/26/2015 In active Prevacid 30 mg capsu le,delayed release RxNorm: 312449 Capsule(s) TAKE ONE C APSULE BY MOUTH ONCE A DAY 12/19/2014 05/17/2015 Inactive Naprosyn 500 mg tablet RxNorm: 645228 1 Tablet(s) PO BID 12/02/2014 03/01/2015 Inactive Zantac 300 mg tablet RxNorm: 731522 TAKE ONE TABLET BY MOUTH EVERY NIGHT AT BEDTIME 09/18/2014 03/30/2015 Inactive Naprosyn 500 mg tablet RxNorm: 761808 1 Tablet(s) PO BID 09/04/2014 12/02/2014 Inactive atenolol 25 mg tablet RxNorm: 734213 1 Tablet(s) PO QD 07/17/2014 03/09/2015 Inactive Zantac 300 mg tablet RxNorm: 911801 1 Tablet(s) PO QHS 06/30/2014 09/17/2014 Inactive Lamisil 250 mg tablet RxNorm: 868717 1 Tablet(s) PO QD 06/30/2014 09/27/2014 Inactive Treximet 85 mg-500 m g tablet RxNorm: 886987 Tablet(s) PO PRN as n eeded 06/30/2014 03/09/2015 In active Prevacid 30 mg capsu le,delayed release RxNorm: 410094 TAKE ONE CAPSULE BY M OUTH ONCE A DAY 06/16/2014 12/19/2014 Inactive Treximet 85 mg-500 m g tablet RxNorm: 468188 Tablet(s) PO PRN as n eeded 06/06/2014 06/29/2014 In active Pepcid 20 mg tablet RxNorm: 432378 1 Tablet(s) PO QHS 03/19/2014 06/29/2014 Inactive [SAVINGS FOR UNINSURED PATIENTS -- BIN:[id number], PCN: [id number], Group: [id number], ID# [id number], Process claim through [employer], for questions: . THIS IS NOT INSURANCE.] atenolol 25 mg tablet RxNorm: 987962 1 Tablet(s) PO QD 01/15/2014 07/17/2014 Inactive Pepcid 20 mg tablet RxNorm: 761993 1 Tablet(s) PO QHS 12/23/2013 12/22/2013 Inactive Pepcid 20 mg tablet RxNorm: 547962 1 Tablet(s) PO QHS 12/23/2013 03/19/2014 Inactive [SAVINGS FOR UNINSURED PATIENTS -- BIN:[id number], PCN: [id number], Group: [id number], ID# [id number], Process claim through [employer]Imp[employer], for questions: . THIS IS NOT INSURANCE.] Prevacid 30 mg capsu le,delayed release RxNorm: 833373 1 Capsule(s) PO QD 12/23/2013 06/15/2014 In active [SAVINGS FOR UNINSURED PATIENTS -- BIN:0 03796, PCN: [id number], Group: [id number], ID# [id number], Process claim through [employer], for questions: . THIS IS NOT INSURANCE.] loratadine 10 mg tablet RxNorm: 558672 TAKE ONE TABLET BY MOUTH EVERY MORNING 09/09/2013 04/06/2014 In active nystatin-triamcinolo ne 100,000 unit/g-0.1 % topical cream RxNorm: 5706615 1 Application TOP QHS to rash 08/22/2013 06/29/2014 Inactive prednisone 20 mg tablet RxNorm: 910537 1 Tablet(s) PO BID 08/12/2013 08/18/2013 Inactive loratadine 10 mg tablet RxNorm: 663250 1 Tablet(s) PO QAM 08/12/2013 09/08/2013 Inactive Treximet 85 mg-500 m g tablet RxNorm: 686257 Tablet(s) PO PRN 07/22/2013 07/21/2013 Inactive atenolol 25 mg tablet RxNorm: 674780 1 Tablet(s) PO QD 07/22/2013 01/15/2014 Inactive Prevacid 30 mg capsu le,delayed release RxNorm: 610456 1 Capsule(s) PO BID 07/22/2013 12/22/2013 In active nitrofurantoin macro crystal 100 mg capsule RxNorm: 710677 1 Capsule(s) PO BID 05/31/2013 06/06/2013 In active albuterol sulfate HF A 90 mcg/actuation aerosol inhaler RxNorm: 834360 2 Puff(s) INH QID 05/31/2013 06/13/2013 Inactive azithromycin 250 mg tablet RxNorm: 198083 2 Tablet(s) PO QD 05/27/2013 06/02/2013 Inactive Prevacid 30 mg capsu le,delayed release RxNorm: 750572 1 Capsule(s) PO BID 03/20/2013 07/21/2013 In active Lamisil 250 mg tablet RxNorm: 988666 1 Tablet(s) PO QD 02/26/2013 05/26/2013 Inactive betamethasone eloy te 0.1 % Topical Cream RxNorm: 694113 1 Application TOP BID 11/29/2012 12/12/2012 In active Diflucan 100 mg tablet RxNorm: 629104 1 Tablet(s) PO QD 11/29/2012 12/08/2012 Inactive nystatin 100,000 uni t/gram Topical Powder RxNorm: 706520 1 Gram(s) TOP BID belinda ly to affected areas twice daily 11/29/2012 12/08/2012 Inactive Medrol (Camilo) 4 mg ta blets in a dose pack RxNorm: 014539 Tablet(s) PO as direc nico 11/12/2012 02/25/2013 In active Levaquin 750 mg tablet RxNorm: 323672 1 Tablet(s) PO QD antibiotic 11/12/2012 11/21/2012 Inactive Prevacid 30 mg capsu le,delayed release RxNorm: 521252 1 Capsule(s) PO BID 09/17/2012 03/15/2013 In active azithromycin 250 mg tablet RxNorm: 456068 2 Tablet(s) PO QD 07/30/2012 08/06/2012 Inactive nystatin 100,000 uni t/g Ointment RxNorm: 461722 1 Gram(s) TOP BID belinda ly to affected area twice daily 06/21/2012 06/30/2012 Inactive nystatin 100,000 uni t/g Ointment RxNorm: 791227 1 Gram(s) TOP BID belinda ly to affected area twice daily 06/04/2012 06/13/2012 Inactive Prevacid 30 mg capsu le,delayed release RxNorm: 146457 1 Capsule(s) PO BID 03/01/2012 08/27/2012 In active Omnaris 50 mcg Nasal Barton RxNorm: 784516 2 Barton NASAL QD each nostril 12/21/2011 03/09/2015 In active betamethasone eloy te 0.1 % Topical Cream RxNorm: 994602 1 Application TOP BID 10/07/2011 10/20/2011 In active dibucaine 1 % Rectal Ointment RxNorm: 330118 1 RTL TID 10/07/2011 10/16/2011 Inactive Proctofoam 1 % Topic al Foam RxNorm: 622711 1 TOP BID 10/07/2011 10/16/2011 Inactive Treximet 85 mg-500 m g Tab RxNorm: 275941 Tablet(s) PO Take 1 a t headache onset and may repeat 1 in two hours if needed 09/05/2011 No Stop Date Active Prevacid 30 mg capsu le,delayed release RxNorm: 831337 1 Capsule(s) PO BID 08/30/2011 02/25/2012 In active Flexeril 5 mg tablet RxNorm: 013311 1-2 Tablet(s) PO QHS 08/05/2011 06/29/2014 Inactive prn spasm cefuroxime axetil 50 0 mg Tab RxNorm: 729437 1 Tablet(s) PO BID 04/28/2011 05/07/2011 Inactive Flexeril 5 mg Tab RxNorm: 426740 1-2 Tablet(s) PO QHS 04/20/2011 08/05/2011 Inactive prn spasm Prevacid 30 mg Capsu le, delayed release RxNorm: 858919 1 Capsule(s) PO BID 02/23/2011 08/30/2011 In active Prevacid 30 mg Cap RxNorm: 066537 1 Capsule(s) PO QD 02/21/2011 02/22/2011 Inactive Pyridium 100 mg Tab RxNorm: 2355339 1 Tablet(s) PO TID 02/04/2011 02/05/2011 Inactive will turn urine orange/red. Septra DS 800 mg-160 mg Tab RxNorm: 831024 1 Tablet(s) PO BID 02/04/2011 02/08/2011 Inactive lisinopril 10 mg Tab RxNorm: 289761 1 Tablet(s) PO QD 12/06/2010 01/04/2011 Inactive amitriptyline 10 mg Tab RxNorm: 679626 2 Tablet(s) PO QD 12/06/2010 01/04/2011 Inactive Treximet 85 mg-500 m g Tab RxNorm: 234816 1 Tablet(s) PO 12/02/2010 09/05/2011 Inactive at H A onset, may repeat i po in 2hrs if CHAUHAN remains lisinopril 20 mg Tab RxNorm: 489766 1 Tablet(s) PO QD 09/10/2010 12/06/2010 Inactive Prevacid 30 mg Cap RxNorm: 207928 1 Capsule(s) PO BID 08/09/2010 02/21/2011 Inactive Flexeril 5 mg Tab RxNorm: 304205 1-2 Tablet(s) PO QHS prn spasm 04/14/2010 04/20/2011 In active Topamax 50 mg Tab RxNorm: 759099 1 Tablet(s) PO BID 02/16/2010 04/13/2010 Inactive Topamax 50 mg Tab RxNorm: 533774 1/2 Tablet(s) PO QHS for 1wk then 1 po Q HS 02/15/2010 02/15/2010 In active Cefdinir 300 mg Cap RxNorm: 444439 1 Capsule(s) PO BID One tablet PO twice daily for 10 days. 02/03/2010 02/12/2010 Inactive Topamax 50 mg Tab RxNorm: 312525 1/2 Tablet(s) PO QHS for 1wk then 1 po Q HS 01/27/2010 02/14/2010 In active Flexeril 5 mg Tab RxNorm: 534719 1 Tablet(s) PO TID prn spasm 01/25/2010 02/15/2010 Inactive Macrobid 100 mg Cap RxNorm: 9375159 1 Capsule(s) PO BID 09/01/2009 09/07/2009 Inactive Prevacid 30 mg Cap RxNorm: 300649 1 Capsule(s) PO BID 09/01/2009 09/30/2009 Inactive Flexeril 5 mg Tab RxNorm: 865002 1 Tablet(s) PO TID prn spasm 09/01/2009 09/30/2009 Inactive lisinopril 20 mg Tab RxNorm: 812475 1 Tablet(s) PO QD 08/31/2009 09/10/2010 Inactive atenolol 25 mg Tab RxNorm: 927231 1 Tablet(s) PO QD No Start Date 07/30/2012 Inactive magnesium 100 mg tablet RxNorm: 1 Tablet(s) PO QD No Start Date Active Calcium with Vitamin D 600 mg-400 unit Tab RxNorm: 268185 1 Tablet(s) PO QD No Start Date Active Aspirin 81 mg Tab RxNorm: 420219 1 Tablet(s) PO QD No Start Date Active Brisdelle 7.5 mg cap violeta RxNorm: 9202207 1 Capsule(s) PO QHS No Start Date 12/09/2015 Inactive Prevacid 30 mg Cap RxNorm: 048637 1 Capsule(s) PO QD No Start Date 02/20/2011 Inactive Ultram 50 mg Tab RxNorm: 424468 2 Tablet(s) PO QID prn headache No Start Date 04/13/2010 Inactive tizanidine 4 mg tablet RxNorm: 259407 1 Tablet(s) PO Q8H as needed for muscle spasm No Start Date 05/09/2017 Inactive nystatin-triamcinolo ne 100,000 unit/g-0.1 % topical cream RxNorm: 3797395 1 Application TOP QHS to rash No Start Date 08/21/2013 Inactive Imitrex 100 mg tablet RxNorm: 886646 1 Tablet(s) PO at [facility] onset-September repeat in 6hours as needed No Start Date 08/03/2015 Inactive Treximet 85 mg-500 m g Tab RxNorm: 012792 1 Tablet(s) PO at [facility] onset, september repeat i po in 2hrs if [facility] remains No Start Date 12/02/2010 Inactive alprazolam 0.25 mg t ablet RxNorm: 554841 1 Tablet(s) PO QPM No Start Date 08/03/2015 Inactive amitriptyline 25 mg Tab RxNorm: 420762 1 Tablet(s) PO QAM No Start Date 12/06/2010 Inactive amitriptyline 10 mg Tab RxNorm: 393027 Tablet(s) PO Take 4 tablets by mouth 1 w [place] before period and week of period and 3 tablets other 2 weeks of month No Start Date 09/04/2011 Inactive Omnaris 50 mcg Nasal Barton RxNorm: 874273 2 Barton NASAL QD each nostril No Start Date 12/20/2011 Inactive sertraline 25 mg tablet RxNorm: 950500 1 Tablet(s) PO QD No Start Date 08/03/2015 Inactive atenolol 25 mg tablet RxNorm: 006007 1 Tablet(s) PO QD No Start Date 07/21/2013 Inactive hydrochlorothiazide 25 mg tablet RxNorm: 766788 1 Tablet(s) PO QAM No Start Date 05/26/2015 Inactive Maxalt 10 mg tablet RxNorm: 675720 Tablet(s) PO as needed for headache No Start Date 10/04/2015 Inactive atenolol 25 mg Tab RxNorm: 449876 1/2 Tablet(s) PO QD No Start Date 12/20/2011 Inactive Medrol (Camilo) 4 mg ta blets in a dose pack RxNorm: 467796 Tablet(s) PO as direc nico No Start Date 11/11/2012 Inactive Naprosyn 500 mg tablet RxNorm: 661377 1 Tablet(s) PO BID No Start Date 09/04/2014 Inactive promethazine-codeine 6.25 mg-10 mg/5 mL syrup RxNorm: 087516 PO No Start Date 06/29/2014 Inactive Flexeril 5 mg Tab RxNorm: 664443 2 Tablet(s) PO QHS No Start Date 04/13/2010 Inactive Treximet 85 mg-500 m g tablet RxNorm: 404081 Tablet(s) PO PRN No Start Date 07/21/2013 Inactive cyclobenzaprine 5 mg tablet RxNorm: 899652 1-2 Tablet(s) PO QHS No Start Date 03/09/2015 Inactive atenolol 25 mg tablet RxNorm: 930418 1 Tablet(s) PO QD No Start Date 12/25/2016 Inactive lisinopril 20 mg Tab RxNorm: 569363 1 Tablet(s) PO QD No Start Date 10/06/2011 Inactive Topamax 50 mg Tab RxNorm: 686908 1 Tablet(s) PO BID No Start Date 02/15/2010 Inactive Treximet 85 mg-500 m g Tab RxNorm: 272646 Tablet(s) PO Take 1 a t headache onset and may repeat 1 in two hours if needed No Start Date 09/04/2011 Inactive Stool Softener 100 m g Cap RxNorm: 6162702 3 Capsule(s) PO QD No Start Date 06/29/2014 Inactive flax seed oil RxNorm: 1 PO QD No Start Date 03/09/2015 Inactive Medication Administered No Medication Administered data Immunizations Vaccine Codes Date Status Tetanus, Diptheria, Pertussis CVX: 115 06/11/2018 completed Assessments Condition Codes Effectiv e Dates Encounter for therapeutic drug level monitoring ICD-10: Z51.81 ICD-9: V58.83 01/15/2019 Essential (primary) hypertension ICD -10: I10 ICD-9: 401.9 01/15/2019 Acute bronchitis, unspecified ICD-10 : J20.9 ICD-9: 466.0 07/20/2018 Acute recurrent maxillary sinusitis ICD-10: J01.01 ICD-9: 461.0 07/20/2018 Encounter for general adult medical exam ination without abnormal findings ICD-10: Z00.00 ICD-9: V70.9 06/29/2018 Mixed hyperlipidemia ICD-10: E78.2 ICD-9: 272.4 06/29/2018 VACCINE FOR TDAP ICD-10: Z23 ICD-9: V06.1 06/11/2018 Migraine with aura, not intractable, wit hout status migrainosus ICD-10: G43.109 ICD-9: 346.20 06/11/2018 Encounter for screening mammogram for ma lignant neoplasm of breast ICD-10: Z12.31 ICD-9: V76.12 06/11/2018 Persistent migraine 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 cerebra l infarction, intractable, with status migrainosus ICD-10: G43.511 ICD-9: 346.53 04/05/2017 Pain in unspecified joint ICD-10: M2 5.50 ICD-9: 719.40 04/05/2017 Encounter for gynecological examination (general) (routine) without abnormal findings ICD-10: Z01.419 ICD-9: V72.31 04/05/2017 Acute upper respiratory infection, unspecified ICD-10: J06.9 ICD-9: 465.9 02/12/2016 Acute maxillary sinusitis, unspecified ICD-10: J01.00 ICD-9: 461.0 02/12/2016 Urinary tract infection, site not specified ICD-10: N39.0 ICD-9: 599.0 10/01/2015 Migraine, unspecified, not intractable, without status migrainosus ICD-10: G43.909 ICD-9: 346.90 08/04/2015 Anemia, unspecified ICD-10: D64.9 ICD-9: 285.9 07/29/2015 Dysuria ICD-10: R30.0 ICD-9: 788.1 05/27/2015 Menopausal and female climacteric states ICD-10: N95.1 ICD-9: 627.2 05/27/2015 Unspecified convulsions ICD-10: R56. 9 ICD-9: 780.39 03/10/2015 ANEMIA NOS ICD-9: 285.9 07/29/2014 HYPERLIPIDEMIA NEC/NOS ICD-9: 272.4 07/29/2014 MALAISE AND FATIGUE ICD-9: 780.79 07/29/2014 HYPERTENSION ICD-9: 401.9 07/29/2014 GERD ICD-9: 530.81 06/30 MIGRAINE NOS/NOT INTRCBL ICD-9: 346.90 06/30/2014 ROUTINE MEDICAL EXAM ICD-9: V70.0 06/30/2014 ALLERGIC RHINITIS ICD-9: 477.9 08/12/2013 DERMATITIS NOS ICD-9: 692.9 08/12/2013 COUGH ICD-9: 786.2 05/31 BRONCHITIS, ACUTE ICD-9: 466.0 05/31/2013 URINARY TRACT INFECTION ICD-9: 599.0 05/31/2013 HEMATURIA NOS ICD-9: 599.70 05/31/2013 FEBRILE ILLNESS ICD-9: 780.60 05/27/2013 SINUSITIS, ACUTE ICD-9: 461.9 05/27/2013 Tinea cruris ICD-9: 110.3 02/26/2013 Rash ICD-9: 782.1 2012 PHARYNGITIS, ACUTE ICD-9: 462 11/12/2012 Myalgia ICD-9: 729.1 JOINT PAIN-UNSPEC ICD-9: 719.40 06/05/2012 ROUTINE GYNE EXAM ICD-9: V72.31 12/21/2011 Constipation ICD-9: 564.00 10/07/2011 Hemorrhoid ICD-9: 455.6 10/07/2011 EUSTACHIAN TUBE DYSFUNCTION ICD-9: 381.81 09/05/2011 DIZZINESS/VERTIGO ICD-9: 780.4 09/05/2011 Plantar warts ICD-9: 078.12 09/05/2011 DIARRHEA ICD-9: 787.91 1 06/29/2010 Finger pain ICD-9: 729.5 04/13/2011 Nasal pain ICD-9: 478.19 04/13/2011 Metrorrhagia ICD-9: 626.6 04/13/2011 Frequent urination ICD-9: 788.41 02/04/2011 CEPHALGIA ICD-9: 784.0 1 06/15/2009 VRNT MGRN WO NTR MGR NEC ICD-9: 346.20 04/14/2010 ALTERED MENTAL STATUS ICD-9: 780.97 01/25/2010 TREMOR NEC ICD-9: 333.1 01/25/2010 PAIN, LOWER BACK ICD-9: 724.2 09/01/2009 SPASM OF MUSCLE ICD-9: 728.85 09/01/2009 Reason For Visit Reason For Visit Effective Dates Notes follow up 01/15/2019 sore throat 07/20/2018 lab draw 06/29/2018 well woman exam (40-65 years) 06/11/2018 Annual Wellness Annual Checkup 04/05/2017 Wellness Physical, last normal mammogram 08-17-15, last colonoscopy was about 5 years ago and has history of polyps cough 02/12/2016 cough 01/25/2016 pelvic pain 10/01/2015 Annual Checkup 08/04/2015 Wellness Physical, last normal mammogram 08-07-14 menstrual irregularity 05/27/2015 seizure 03/10/2015 lab draw 07/29/2014 Annual Checkup 06/30/2014 Wellness Physical rash 08/12/2013 pelvic pain 05/31/2013 sore throat 05/27/2013 rash 02/26/2013 rash 11/29/2012 cough 11/12/2012 sore throat 07/30/2012 lab draw 06/05/2012 rash 06/04/2012 well woman exam (40-65 years) 12/21/2011 last normal mammogram 2 years ago hemorrhoids 10/07/2011 v nu uncomfortable, started about 2 weeks ago headache 09/05/2011 rece ntly changed to atenolol from amitriptyline but hasn't really helped headaches sinus congestion 04/28/2011 ~generic 04/13/2011 thin ks may have broken nose, had storage totes fall on face 4 days ago painful urination 02/04/2011 couple dribbles at a time well woman exam (40-65 years) 12/06/2010 follow up 04/14/2010 2mo fwup follow up 02/16/2010 3wk fwup, been back to work since 02/06/10 sinusitis 02/03/2010 follow up 01/27/2010 fro [facility] with UTI/migraine and given medications but hasn't filled anything yet headache 01/25/2010 an[place]io ing lab draw 12/09/2009 well woman exam (40-65 years) 12/08/2009 back pain 09/01/2009 low back pain Results Observation Observation Code Item Item Code Result Date COMPREHENSIVE METABOLIC 91433 AST 15 U/L 06/29/2018 COMPREHENSIVE METABOLIC 72615 ALT 15 U/L 06/29/2018 COMPREHENSIVE METABOLIC 03662 BUN 19 mg/dL 06/29/2018 COMPREHENSIVE METABOLIC 45120 ALBUMIN 4.3 g/dL 06/29/2018 COMPREHENSIVE METABOLIC 15229 CHLORIDE 106 mmol/L 06/29/2018 COMPREHENSIVE METABOLIC 65840 Bili Total 0.6 mg/dL 06/29/2018 COMPREHENSIVE METABOLIC 57815 ALK PHOS 82 U/L 06/29/2018 COMPREHENSIVE METABOLIC 31587 SODIUM 141 mmol/L 06/29/2018 COMPREHENSIVE METABOLIC 94499 CREATININE 0.66 mg/dL 06/29/2018 COMPREHENSIVE METABOLIC 76117 CALCIUM 9.6 mg/dL 06/29/2018 COMPREHENSIVE METABOLIC 53654 POTASSIUM 4.3 mmol/L 06/29/2018 COMPREHENSIVE METABOLIC 48701 Total Protein 7.0 g/dL 06/29/2018 COMPREHENSIVE METABOLIC 45968 Glucose 102 mg/dL 06/29/2018 COMPREHENSIVE METABOLIC 55716 Bicarbonate 29 mmol/L 06/29/2018 COMPREHENSIVE METABOLIC 31054 AGAP 6 mmol/L 06/29/2018 FREE T4 57129 T4 Free 1.04 ng/dL 06/29/2018 GFR CALC 4402402 GFR Non Afr Amr >60 mL/min 06/29/2018 GFR CALC 3942572 GFR Afr Amr >60 mL/min 06/29/2018 LIPID GROUP 11209 Choles terol 197 mg/dL 06/29/2018 LIPID GROUP 19773 Trigly ceride 70 mg/dL 06/29/2018 LIPID GROUP 08756 HDL CH OLESTEROL 45 mg/dL 06/29/2018 LIPID GROUP 60147 Chol/H DL Ratio 4.38 ratio 06/29/2018 LIPID GROUP 67649 NON-HD L Chol 152 mg/dL 06/29/2018 LIPID GROUP 76961 LDL Ch olesterol 138 mg/dL 06/29/2018 THYROID STIMULATING HORMONE 88962 TSH 1.477 uIU/mL 9 COMPLETE BLOOD COUNT 7865652 WBC 5.2 10e9/L 06/29/2018 COMPLETE BLOOD COUNT 6284850 RBC 4.93 10e12/L 9 COMPLETE BLOOD COUNT 1094041 HEMOGLOBIN 14.3 g/dL 06/29/2018 COMPLETE BLOOD COUNT 9770519 HEMATOCRIT 42.9 % 06/29/2018 COMPLETE BLOOD COUNT 3172692 MCV 87.0 fL 06/29/2018 COMPLETE BLOOD COUNT 0189464 MCH 29.0 pg 06/29/2018 COMPLETE BLOOD COUNT 3678632 MCHC 33.3 g/dL 06/29/2018 COMPLETE BLOOD COUNT 1660205 PLATELET COUNT 289 10e9/L 06/29/2018 COMPLETE BLOOD COUNT 5069078 Mean Plt Volume 10.6 fL 06/29/2018 COMPLETE BLOOD COUNT 1323750 Neut Auto 74.1 % 06/29/2018 COMPLETE BLOOD COUNT 6495845 Lymph Auto 14.7 % 06/29/2018 COMPLETE BLOOD COUNT 0908215 Jones Auto 8.3 % 06/29/2018 COMPLETE BLOOD COUNT 6749501 RDW 13.7 % 06/29/2018 COMPLETE BLOOD COUNT 5635437 Eos Auto 2.7 % 06/29/2018 COMPLETE BLOOD COUNT 6843239 Baso Auto 0.2 % 06/29/2018 COMPLETE BLOOD COUNT 2721304 Neutrophil Abs 3.85 10e9/L 06/29/2018 COMPLETE BLOOD COUNT 9062489 Lymphocyte Abs 0.76 10e9/L 06/29/2018 COMPLETE BLOOD COUNT 5961720 Monocyte Abs 0.43 10e9/L 06/29/2018 COMPLETE BLOOD COUNT 0544655 Eosinophil Abs 0.14 10e9/L 06/29/2018 COMPLETE BLOOD COUNT 2707185 RDW-SD 42.7 fL 06/29/2018 COMPLETE BLOOD COUNT 0750535 Basophil Abs 0.01 10e9/L 06/29/2018 IRON 54197 IRON TEST 42 UG/DL 07/31/2014 FERRITIN 55515 FERRITIN 10 NG/ML 07/31/2014 VITAMIN B 12 FOLIC ACID 62795|76996 VIT B 12 233 PG/ML 07/31/2014 VITAMIN B 12 FOLIC ACID 35797|53840 FOLIC ACID 8.7 NG/ML 5 COMPLETE BLOOD COUNT 5224303 WBC 6.4 10e9/L 07/29/2014 COMPLETE BLOOD COUNT 1267326 RBC 4.36 10e12/L 5 COMPLETE BLOOD COUNT 5106488 HGB 11.5 g/dL 07/29/2014 COMPLETE BLOOD COUNT 4442609 HCT DET 35.3 % 07/29/2014 COMPLETE BLOOD COUNT 7711876 MCV 81.0 fL 07/29/2014 COMPLETE BLOOD COUNT 9222836 MCH 26.4 pg 07/29/2014 COMPLETE BLOOD COUNT 0394785 MCHC 32.6 g/dL 07/29/2014 COMPLETE BLOOD COUNT 9413793 PLT 329 10e9/L 07/29/2014 COMPLETE BLOOD COUNT 4177814 MPV 10.4 fL 07/29/2014 COMPLETE BLOOD COUNT 3442291 ROLAND % 69.6 % 07/29/2014 COMPLETE BLOOD COUNT 4456193 LY % 21.3 % 07/29/2014 COMPLETE BLOOD COUNT 9948718 MON % 6.8 % 07/29/2014 COMPLETE BLOOD COUNT 2326037 EOS % 2.0 % 07/29/2014 COMPLETE BLOOD COUNT 0587696 BASO % 0.3 % 07/29/2014 COMPLETE BLOOD COUNT 8166571 RDW 15.9 % 07/29/2014 COMPLETE BLOOD COUNT 9484632 ABS ROLAND 4.45 10e9/L 07/29/2014 COMPLETE BLOOD COUNT 5764074 ABS LYMPH 1.36 10e9/L 07/29/2014 COMPLETE BLOOD COUNT 6063238 ABS MONO 0.44 10e9/L 07/29/2014 COMPLETE BLOOD COUNT 6716073 ABS EOS 0.13 10e9/L 07/29/2014 COMPLETE BLOOD COUNT 0799157 ABS BASO 0.02 10e9/L 07/29/2014 COMPLETE BLOOD COUNT 3936692 RDW-SD 46.1 fL 07/29/2014 LIPID GROUP [address] 41 MG/DL 07/29/2014 LIPID GROUP 49215 TRIG 92 MG/DL 07/29/2014 LIPID GROUP 93590 TEST L DL 118 MG/DL 07/29/2014 LIPID GROUP 38682 CHOL 177 MG/DL 07/29/2014 LIPID GROUP 18324 RCHOL/ HDL 4.32 RATIO 07/29/2014 LIPID GROUP 93705 NON-HD L CH 136 MG/DL 07/29/2014 GFR CALC 3249399 GFR AA >60 ML/MIN 07/29/2014 GFR CALC 0915447 GFR NON -AA >60 ML/MIN 07/29/2014 FREE T4 84481 FREE T4 1.10 NG/DL 07/29/2014 COMPREHENSIVE METABOLIC 91688 AST 13 U/L 07/29/2014 COMPREHENSIVE METABOLIC 81223 ALT 12 IU/L 07/29/2014 COMPREHENSIVE METABOLIC 76881 BUN 16 MG/DL 07/29/2014 COMPREHENSIVE METABOLIC 18787 ALBUMIN 4.1 GM/DL 07/29/2014 COMPREHENSIVE METABOLIC 32992 CHLORIDE 106 MMOL/L 07/29/2014 COMPREHENSIVE METABOLIC 96212 BILI TOT 0.4 MG/DL 07/29/2014 COMPREHENSIVE METABOLIC 60179 ALK PHOS 77 U/L 07/29/2014 COMPREHENSIVE METABOLIC 70105 SODIUM 137 MMOL/L 07/29/2014 COMPREHENSIVE METABOLIC 59830 CREATININE 0.65 MG/DL 07/29/2014 COMPREHENSIVE METABOLIC 95872 CALCIUM 9.0 MG/DL 07/29/2014 COMPREHENSIVE METABOLIC 62003 POTASSIUM 4.0 MMOL/L 07/29/2014 COMPREHENSIVE METABOLIC 67700 PROT TOT 6.3 GM/DL 07/29/2014 COMPREHENSIVE METABOLIC 83356 Glucose 98 MG/DL 07/29/2014 COMPREHENSIVE METABOLIC 34519 BICARB 26 MMOL/L 07/29/2014 COMPREHENSIVE METABOLIC 51698 ANION GAP 5 MEQ/L 07/29/2014 THYROID STIMULATING HORMONE 82915 TSH 1.678 uIU/ML 5 GFR CALC 9935898 GFR AA >60 ML/MIN 02/26/2013 GFR CALC 3467129 GFR NON -AA >60 ML/MIN 02/26/2013 THYROID STIMULATING HORMONE 24091 TSH 1.635 uIU/ML 3 COMPLETE BLOOD COUNT 9948785 WBC 7.8 10e9/L 02/26/2013 COMPLETE BLOOD COUNT 6571668 RBC 4.60 10e12/L 3 COMPLETE BLOOD COUNT 1673425 HGB 12.7 g/dL 02/26/2013 COMPLETE BLOOD COUNT 8081427 HCT DET 38.1 % 02/26/2013 COMPLETE BLOOD COUNT 1191301 MCV 82.8 fL 02/26/2013 COMPLETE BLOOD COUNT 7451825 MCH 27.6 pg 02/26/2013 COMPLETE BLOOD COUNT 3547574 MCHC 33.3 g/dL 02/26/2013 COMPLETE BLOOD COUNT 8168984 PLT 324 10e9/L 02/26/2013 COMPLETE BLOOD COUNT 1098856 MPV 10.2 fL 02/26/2013 COMPLETE BLOOD COUNT 7020177 ROLAND % 72.0 % 02/26/2013 COMPLETE BLOOD COUNT 5126161 LY % 20.1 % 02/26/2013 COMPLETE BLOOD COUNT 0706267 MON % 6.3 % 02/26/2013 COMPLETE BLOOD COUNT 9442287 EOS % 1.3 % 02/26/2013 COMPLETE BLOOD COUNT 6993582 BASO % 0.3 % 02/26/2013 COMPLETE BLOOD COUNT 6168407 RDW 14.4 % 02/26/2013 COMPLETE BLOOD COUNT 2813819 ABS ROLAND 5.62 10e9/L 02/26/2013 COMPLETE BLOOD COUNT 9110139 ABS LYMPH 1.57 10e9/L 02/26/2013 COMPLETE BLOOD COUNT 2484102 ABS MONO 0.49 10e9/L 02/26/2013 COMPLETE BLOOD COUNT 1629726 ABS EOS 0.10 10e9/L 02/26/2013 COMPLETE BLOOD COUNT 7307764 ABS BASO 0.02 10e9/L 02/26/2013 COMPLETE BLOOD COUNT 8976318 RDW-SD 42.8 fL 02/26/2013 COMPREHENSIVE METABOLIC 00234 AST 15 U/L 02/26/2013 COMPREHENSIVE METABOLIC 30172 ALT 14 IU/L 02/26/2013 COMPREHENSIVE METABOLIC 35258 BUN 14 MG/DL 02/26/2013 COMPREHENSIVE METABOLIC 37337 ALBUMIN 4.2 GM/DL 02/26/2013 COMPREHENSIVE METABOLIC 70069 CHLORIDE 104 MMOL/L 02/26/2013 COMPREHENSIVE METABOLIC 12731 BILI TOT 0.6 MG/DL 02/26/2013 COMPREHENSIVE METABOLIC 00042 ALK PHOS 71 U/L 02/26/2013 COMPREHENSIVE METABOLIC 62564 SODIUM 136 MMOL/L 02/26/2013 COMPREHENSIVE METABOLIC 45252 CREATININE 0.62 MG/DL 02/26/2013 COMPREHENSIVE METABOLIC 64257 CALCIUM 9.5 MG/DL 02/26/2013 COMPREHENSIVE METABOLIC 26075 POTASSIUM 4.1 MMOL/L 02/26/2013 COMPREHENSIVE METABOLIC 94407 PROT TOT 6.7 GM/DL 02/26/2013 COMPREHENSIVE METABOLIC 59804 Glucose 92 MG/DL 02/26/2013 COMPREHENSIVE METABOLIC 75318 BICARB 26 MMOL/L 02/26/2013 COMPREHENSIVE METABOLIC 49272 ANION GAP 6 MEQ/L 02/26/2013 LIPID GROUP [address] 45 MG/DL 02/26/2013 LIPID GROUP 57564 TRIG 107 MG/DL 02/26/2013 LIPID GROUP 82825 TEST L DL 129 MG/DL 02/26/2013 LIPID GROUP 41320 CHOL 195 MG/DL 02/26/2013 LIPID GROUP 34599 RCHOL/ HDL 4.33 RATIO 02/26/2013 FREE T4 32903 FREE T4 1.07 NG/DL 02/26/2013 MYCOPLASMA ANTIBODY, IFA 49961S7 MYCO G IFA 1:128 11/13/2012 MYCOPLASMA ANTIBODY, IFA 55424J6 MYCO M IFA <1:10 11/13/2012 MYCOPLASMA ANTIBODY, IFA 03527S6 MYCO INTER SEE BELO 11/13/2012 COMPLETE BLOOD COUNT 1042145 WBC 6.0 10e9/L 11/12/2012 COMPLETE BLOOD COUNT 3735284 RBC 4.68 10e12/L 3 COMPLETE BLOOD COUNT 5574007 HGB 12.9 g/dL 11/12/2012 COMPLETE BLOOD COUNT 8199319 HCT DET 38.7 % 11/12/2012 COMPLETE BLOOD COUNT 6500689 MCV 82.7 fL 11/12/2012 COMPLETE BLOOD COUNT 4186594 MCH 27.6 pg 11/12/2012 COMPLETE BLOOD COUNT 2636968 MCHC 33.3 g/dL 11/12/2012 COMPLETE BLOOD COUNT 4761970 PLT 297 10e9/L 11/12/2012 COMPLETE BLOOD COUNT 6265162 MPV 11.1 fL 11/12/2012 COMPLETE BLOOD COUNT 7820932 ROLAND % 63.8 % 11/12/2012 COMPLETE BLOOD COUNT 1753613 LY % 28.2 % 11/12/2012 COMPLETE BLOOD COUNT 6784643 MON % 6.6 % 11/12/2012 COMPLETE BLOOD COUNT 9797184 EOS % 1.2 % 11/12/2012 COMPLETE BLOOD COUNT 6675942 BASO % 0.2 % 11/12/2012 COMPLETE BLOOD COUNT 3910630 RDW 14.9 % 11/12/2012 COMPLETE BLOOD COUNT 5722712 ABS ROLAND 3.83 10e9/L 11/12/2012 COMPLETE BLOOD COUNT 5588679 ABS LYMPH 1.69 10e9/L 11/12/2012 COMPLETE BLOOD COUNT 9052595 ABS MONO 0.40 10e9/L 11/12/2012 COMPLETE BLOOD COUNT 7506868 ABS EOS 0.07 10e9/L 11/12/2012 COMPLETE BLOOD COUNT 0583264 ABS BASO 0.01 10e9/L 11/12/2012 COMPLETE BLOOD COUNT 7969984 RDW-SD 44.8 fL 11/12/2012 HEMOGLOBIN A1C (GLYCOSYLATED) 6897079 A1C [facility] 55623-4 5.1 % 06/06/2012 RA FACTOR 33093 RA FACTOR <20.0 IU/ML 06/06/2012 ANTINUCLEAR ANTIBODY SCREEN 59018 FERDINAND SCR <1:80 06/06/2012 INSULIN SERUM 70000 INSU PETER 12.2 mU/L 06/06/2012 COMPREHENSIVE METABOLIC 03307 AST 13 U/L 06/05/2012 COMPREHENSIVE METABOLIC 64228 ALT 13 IU/L 06/05/2012 COMPREHENSIVE METABOLIC 51859 BUN 21 MG/DL 06/05/2012 COMPREHENSIVE METABOLIC 24262 ALBUMIN 4.7 GM/DL 06/05/2012 COMPREHENSIVE METABOLIC 38641 CHLORIDE 106 MMOL/L 06/05/2012 COMPREHENSIVE METABOLIC 70530 BILI TOT 0.6 MG/DL 06/05/2012 COMPREHENSIVE METABOLIC 68065 ALK PHOS 61 U/L 06/05/2012 COMPREHENSIVE METABOLIC 23643 SODIUM 139 MMOL/L 06/05/2012 COMPREHENSIVE METABOLIC 11297 CREATININE 0.71 MG/DL 06/05/2012 COMPREHENSIVE METABOLIC 40274 CALCIUM 9.8 MG/DL 06/05/2012 COMPREHENSIVE METABOLIC 77387 POTASSIUM 4.6 MMOL/L 06/05/2012 COMPREHENSIVE METABOLIC 71213 PROT TOT 6.7 GM/DL 06/05/2012 COMPREHENSIVE METABOLIC 34048 Glucose 104 MG/DL 06/05/2012 COMPREHENSIVE METABOLIC 82869 BICARB 24 MMOL/L 06/05/2012 COMPREHENSIVE METABOLIC 31004 ANION GAP 9 MEQ/L 06/05/2012 GFR CALC 6474695 GFR AA >60 ML/MIN 06/05/2012 GFR CALC 7911530 GFR NON -AA >60 ML/MIN 06/05/2012 LIPID GROUP [address] 46 MG/DL 06/05/2012 LIPID GROUP 27939 TRIG 77 MG/DL 06/05/2012 LIPID GROUP 01384 TEST L DL 135 MG/DL 06/05/2012 LIPID GROUP 79558 CHOL 196 MG/DL 06/05/2012 LIPID GROUP 51268 RCHOL/ HDL 4.26 RATIO 06/05/2012 COMPLETE BLOOD COUNT 2473247 WBC 5.9 10e9/L 06/05/2012 COMPLETE BLOOD COUNT 0892792 RBC 5.02 10e12/L 3 COMPLETE BLOOD COUNT 9257294 HGB 13.9 g/dL 06/05/2012 COMPLETE BLOOD COUNT 9509714 HCT DET 41.5 % 06/05/2012 COMPLETE BLOOD COUNT 5193239 MCV 82.7 fL 06/05/2012 COMPLETE BLOOD COUNT 7394775 MCH 27.7 pg 06/05/2012 COMPLETE BLOOD COUNT 4337530 MCHC 33.5 g/dL 06/05/2012 COMPLETE BLOOD COUNT 9387249 PLT 323 10e9/L 06/05/2012 COMPLETE BLOOD COUNT 0561085 MPV 11.3 fL 06/05/2012 COMPLETE BLOOD COUNT 3222835 ROLAND % 70.6 % 06/05/2012 COMPLETE BLOOD COUNT 7187467 LY % 21.4 % 06/05/2012 COMPLETE BLOOD COUNT 7769639 MON % 6.4 % 06/05/2012 COMPLETE BLOOD COUNT 5198288 EOS % 1.3 % 06/05/2012 COMPLETE BLOOD COUNT 0243375 BASO % 0.3 % 06/05/2012 COMPLETE BLOOD COUNT 3033297 RDW 14.9 % 06/05/2012 COMPLETE BLOOD COUNT 2388950 ABS ROLAND 4.17 10e9/L 06/05/2012 COMPLETE BLOOD COUNT 3196943 ABS LYMPH 1.26 10e9/L 06/05/2012 COMPLETE BLOOD COUNT 3623751 ABS MONO 0.38 10e9/L 06/05/2012 COMPLETE BLOOD COUNT 1014143 ABS EOS 0.08 10e9/L 06/05/2012 COMPLETE BLOOD COUNT 1034448 ABS BASO 0.02 10e9/L 06/05/2012 COMPLETE BLOOD COUNT 6819553 RDW-SD 44.8 fL 06/05/2012 THYROID STIMULATING HORMONE 55154 TSH 1.684 uIU/ML 3 FREE T4 18827 FREE T4 1.19 NG/DL 06/05/2012 BASIC METABOLIC PANEL 93609 Glucose 100 MG/DL 04/13/2011 BASIC METABOLIC PANEL 26887 BUN 18 MG/DL 04/13/2011 BASIC METABOLIC PANEL 49533 CREATININE 0.66 MG/DL 04/13/2011 BASIC METABOLIC PANEL 29162 SODIUM 138 MMOL/L 04/13/2011 BASIC METABOLIC PANEL 93568 BICARB 26 MMOL/L 04/13/2011 BASIC METABOLIC PANEL 60591 POTASSIUM 4.0 MMOL/L 04/13/2011 BASIC METABOLIC PANEL 13830 ANION GAP 9 MEQ/L 04/13/2011 BASIC METABOLIC PANEL 77304 CHLORIDE 103 MMOL/L 04/13/2011 BASIC METABOLIC PANEL 30105 CALCIUM 9.6 MG/DL 04/13/2011 FSH 8154712 FSH 4.6 MIU/ML 04/13/2011 GFR CALC 4925778 GFR AA >60 ML/MIN 04/13/2011 GFR CALC 5412761 GFR NON -AA >60 ML/MIN 04/13/2011 ESTRADIOL SERUM 06544 ES TRADIOL 113 PG/ML 04/13/2011 LH 39642 LH 3.7 MIU/ML 04/13/2011 THYROID STIMULATING HORMONE 61518 TSH 1.995 uIU/ML 1 LIPID GROUP [address] 40 MG/DL 12/21/2010 LIPID GROUP 73614 TRIG 66 MG/DL 12/21/2010 LIPID GROUP 65491 TEST L DL 132 MG/DL 12/21/2010 LIPID GROUP 93658 CHOL 185 MG/DL 12/21/2010 LIPID GROUP 13993 RCHOL/ HDL 4.63 RATIO 12/21/2010 THYROID STIMULATING HORMONE 77472 TSH 1.876 uIU/ML 1 COMPLETE BLOOD COUNT 25224 WBC 7.0 10e9/L 12/21/2010 COMPLETE BLOOD COUNT 50688 RBC 4.28 10e12/L 1 COMPLETE BLOOD COUNT 88994 HGB 12.1 g/dL 12/21/2010 COMPLETE BLOOD COUNT 64593 HCT DET 36.1 % 12/21/2010 COMPLETE BLOOD COUNT 10081 MCV 84.3 fL 12/21/2010 COMPLETE BLOOD COUNT 73130 MCH 28.3 pg 12/21/2010 COMPLETE BLOOD COUNT 12431 MCHC 33.5 g/dL 12/21/2010 COMPLETE BLOOD COUNT 94558 PLT 306 10e9/L 12/21/2010 COMPLETE BLOOD COUNT 34558 MPV 10.4 fL 12/21/2010 COMPLETE BLOOD COUNT 02729 ROLAND % 69.9 % 12/21/2010 COMPLETE BLOOD COUNT 19977 LY % 22.2 % 12/21/2010 COMPLETE BLOOD COUNT 11841 MON % 5.7 % 12/21/2010 COMPLETE BLOOD COUNT 86559 EOS % 1.9 % 12/21/2010 COMPLETE BLOOD COUNT 31021 BASO % 0.3 % 12/21/2010 COMPLETE BLOOD COUNT 84146 RDW 14.0 % 12/21/2010 COMPLETE BLOOD COUNT 86611 ABS ROLAND 4.89 10e9/L 12/21/2010 COMPLETE BLOOD COUNT 95553 ABS LYMPH 1.55 10e9/L 12/21/2010 COMPLETE BLOOD COUNT 12625 ABS MONO 0.40 10e9/L 12/21/2010 COMPLETE BLOOD COUNT 80238 ABS EOS 0.13 10e9/L 12/21/2010 COMPLETE BLOOD COUNT 61455 ABS BASO 0.02 10e9/L 12/21/2010 COMPLETE BLOOD COUNT 75799 RDW-SD 41.5 fL 12/21/2010 FREE T4 48951 FREE T4 1.02 NG/DL 12/21/2010 COMPREHENSIVE METABOLIC 37871 AST 11 U/L 12/21/2010 COMPREHENSIVE METABOLIC 67620 ALT 9 IU/L 12/21/2010 COMPREHENSIVE METABOLIC 81662 BUN 16 MG/DL 12/21/2010 COMPREHENSIVE METABOLIC 29536 ALBUMIN 4.0 GM/DL 12/21/2010 COMPREHENSIVE METABOLIC 34977 CHLORIDE 106 MMOL/L 12/21/2010 COMPREHENSIVE METABOLIC 34488 BILI TOT 0.3 MG/DL 12/21/2010 COMPREHENSIVE METABOLIC 00152 ALK PHOS 59 U/L 12/21/2010 COMPREHENSIVE METABOLIC 20387 SODIUM 139 MMOL/L 12/21/2010 COMPREHENSIVE METABOLIC 71701 CREATININE 0.66 MG/DL 12/21/2010 COMPREHENSIVE METABOLIC 15166 CALCIUM 8.9 MG/DL 12/21/2010 COMPREHENSIVE METABOLIC 46268 POTASSIUM 4.2 MMOL/L 12/21/2010 COMPREHENSIVE METABOLIC 70374 PROT TOT 6.5 GM/DL 12/21/2010 COMPREHENSIVE METABOLIC 48290 Glucose 101 MG/DL 12/21/2010 COMPREHENSIVE METABOLIC 09176 BICARB 28 MMOL/L 12/21/2010 COMPREHENSIVE METABOLIC 80272 ANION GAP 5 MEQ/L 12/21/2010 GFR CALC 2315066 GFR AA >60 ML/MIN 12/21/2010 GFR CALC 6965935 GFR NON -AA >60 ML/MIN 12/21/2010 LIPID GROUP [address] 40 MG/DL 12/10/2009 LIPID GROUP 94316 TRIG 98 MG/DL 12/10/2009 LIPID GROUP 78705 TEST L DL 128 MG/DL 12/10/2009 LIPID GROUP 87622 CHOL 188 MG/DL 12/10/2009 LIPID GROUP 95318 RCHOL/ HDL 4.70 RATIO 12/10/2009 DF [id number] POLY 74 % 12/09/2009 DF 0807647 BAND 0 % 12/09/2009 DF [id number] LYMP 21 % 12/09/2009 DF [id number] MONO 3 % 12/09/2009 DF 8164215 EOS 2 % 12/09/2009 DF 2708615 BASO 0 % 12/09/2009 GFR CALC 8581248 GFR AA >60 ML/MIN 12/09/2009 GFR CALC 3111525 GFR NON -AA >60 ML/MIN 12/09/[address] 5604759 WBC 8.7 10e9/L 12/09/[address] 6630968 RBC 4.78 10e12/L 12/09/[address] 7172164 HGB 13.2 g/dL 12/09/[address] 6259248 HCT DET 40.2 % 12/09/[address] 9099509 MCV 84.1 fL 12/09/[address] 579[address] MCH 27.6 pg 12/09/[address] 44[address] MCHC 32.8 g/dL 12/09/[address] 4707445 PLT 374 10e9/L 12/09/[address] 7896[address] MPV 11.0 fL 12/09/[address] 4039533 ROLAND % 70.2 % 12/09/[address] 8453788 RDW 14.4 % 12/09/[address] 7619[address] LY % 22.4 % 12/09/[address] 2771510 RDW-SD 44.7 fL 12/09/[address] 7983176 MON % 6.2 % 12/09/[address] 3176570 EOS % 1.0 % 12/09/[address] 6589518 BASO % 0.2 % 12/09/[address] 9961484 ABS ROLAND 6.08 10e9/L 12/09/[address] 1491211 ABS LY MPH 1.94 10e9/L 12/09/[address] 6418016 ABS MO NO 0.54 10e9/L 12/09/[address] 9446227 ABS EOS 0.09 10e9/L 12/09/[address] [id number] ABS BA SO 0.02 10e9/L 12/09/2009 THYROID STIMULATING HORMONE 45486 TSH 1.916 uIU/ML 201 0 COMPREHENSIVE METABOLIC 77119 AST 13 U/L 12/09/2009 COMPREHENSIVE METABOLIC 53297 ALT 13 IU/L 12/09/2009 COMPREHENSIVE METABOLIC 92941 BUN 18 MG/DL 12/09/2009 COMPREHENSIVE METABOLIC 88098 ALBUMIN 4.3 GM/DL 12/09/2009 COMPREHENSIVE METABOLIC 78766 CHLORIDE 106 MMOL/L 12/09/2009 COMPREHENSIVE METABOLIC 18427 BILI TOT 0.5 MG/DL 12/09/2009 COMPREHENSIVE METABOLIC 48241 ALK PHOS 69 U/L 12/09/2009 COMPREHENSIVE METABOLIC 06030 SODIUM 137 MMOL/L 12/09/2009 COMPREHENSIVE METABOLIC 11188 CREATININE 0.69 MG/DL 12/09/2009 COMPREHENSIVE METABOLIC 17705 CALCIUM 9.1 MG/DL 12/09/2009 COMPREHENSIVE METABOLIC 52453 POTASSIUM 4.5 MMOL/L 12/09/2009 COMPREHENSIVE METABOLIC 43982 PROT TOT 6.9 GM/DL 12/09/2009 COMPREHENSIVE METABOLIC 31445 Glucose 97 MG/DL 12/09/2009 COMPREHENSIVE METABOLIC 76927 BICARB 20 MMOL/L 12/09/2009 COMPREHENSIVE METABOLIC 05042 ANION GAP 11 MEQ/L 12/09/2009 Review of Systems System Result Effective Dates Constitutional No fever 01/15/2019 Constitutional No fatigue 01/15/2019 Constitutional No chills 01/15/2019 Respiratory No cough 07/2018 Respiratory No dyspnea 0 01/15/2019 Cardiovascular No palpitations 01/15/2019 Cardiovascular hypertension 01/15/2019 Gastrointestinal No abdominal pain 01/15/2019 Gastrointestinal No constipation 01/15/2019 Gastrointestinal No diarrhea 01/15/2019 Constitutional No night sweats 07/20/2018 Constitutional No chills 07/20/2018 Constitutional fatigue 0 07/20/2018 Constitutional No fever 07/20/2018 Constitutional malaise 0 07/20/2018 Constitutional No weight gain/obesity 07/20/2018 Constitutional No weight loss 07/20/2018 Eyes No eye pain 019 Eyes No vision change Ears/Nose/Throat/Neck No dizziness 07/20/2018 Ears/Nose/Throat/Neck No headache 07/20/2018 Cardiovascular No arrhythmia 07/20/2018 Cardiovascular No cardiac murmur 07/20/2018 Cardiovascular No chest pain/pressure 07/20/2018 Cardiovascular dyspnea 0 07/20/2018 Cardiovascular No fatigue 07/20/2018 Respiratory No chest congestion 07/20/2018 Respiratory No chest tightness 07/20/2018 Respiratory No COPD 12/2018 Respiratory No cough 12/2018 Respiratory No dyspnea 0 07/20/2018 Gastrointestinal No constipation 07/20/2018 Gastrointestinal No diarrhea 07/20/2018 Genitourinary/Nephrology No dysuria 07/20/2018 Musculoskeletal No stiffness 07/20/2018 Musculoskeletal No low back pain 07/20/2018 Musculoskeletal No arthralgia(s) 07/20/2018 Dermatologic No rash 12/2018 Dermatologic No sores Neurologic No alteration of consciousness 07/20/2018 Neurologic No mental status change 07/20/2018 Psychiatric No anxiety 0 07/20/2018 Psychiatric No stress Hematologic/Lymphatic No abnormal ec chymoses 07/20/2018 Hematologic/Lymphatic No abnormal bl eeding and bruising 07/20/2018 Constitutional No night sweats 06/11/2018 Constitutional No fatigue 06/11/2018 Constitutional No fever 06/11/2018 Constitutional No insomnia 06/11/2018 Constitutional No weight loss 06/11/2018 Eyes No eye pain 019 Eyes No photophobia 05/16 Eyes No vision change Eyes No visual disturbance 06/11/2018 Ears/Nose/Throat/Neck No hearing loss 06/11/2018 Ears/Nose/Throat/Neck No nasal discharge 06/11/2018 Ears/Nose/Throat/Neck No sinus congestion 06/11/2018 Ears/Nose/Throat/Neck No sore throat 06/11/2018 Cardiovascular No arrhythmia 06/11/2018 Cardiovascular No chest pain/pressure 06/11/2018 Cardiovascular No edema 06/11/2018 Cardiovascular No exercise intolerance 06/11/2018 Cardiovascular No orthopnea 06/11/2018 Cardiovascular No palpitations 06/11/2018 Respiratory No asthma Respiratory No cough Respiratory No dyspnea 0 06/11/2018 Respiratory No pleuritic pain 06/11/2018 Respiratory No productive sputum 06/11/2018 Respiratory No wheezing 06/11/2018 Gastrointestinal No hemorrhoids 06/11/2018 Gastrointestinal No hepatitis 06/11/2018 Gastrointestinal No abdominal pain 06/11/2018 Gastrointestinal No constipation 06/11/2018 Gastrointestinal No diarrhea 06/11/2018 Gastrointestinal No gastroesophageal reflu x 06/11/2018 Gastrointestinal No melena 06/11/2018 Gastrointestinal No nausea 06/11/2018 Gastrointestinal No vomiting 06/11/2018 Genitourinary/Nephrology No dysuria 06/11/2018 Genitourinary/Nephrology No nocturia 06/11/2018 Genitourinary/Nephrology No urinary incontinence 06/11/2018 Musculoskeletal No muscle weakness 06/11/2018 Musculoskeletal No myalgias 06/11/2018 Musculoskeletal No stiffness 06/11/2018 Musculoskeletal No swelling 06/11/2018 Dermatologic No rash Dermatologic No scar Neurologic No dizziness 06/11/2018 Neurologic headache 05/16 Neurologic No neck pain 06/11/2018 Neurologic No syncope Psychiatric No anxiety 0 06/11/2018 Psychiatric No depression 06/11/2018 Endocrine No goiter 05/16 Endocrine No hyperglycemia 06/11/2018 Endocrine No hypoglycemia 06/11/2018 Hematologic/Lymphatic No abnormal ec chymoses 06/11/2018 Hematologic/Lymphatic No petechiae 06/11/2018 Hematologic/Lymphatic No abnormal bl eeding and bruising 06/11/2018 Hematologic/Lymphatic No anemia 06/11/2018 Hematologic/Lymphatic No lymph node enlargement/mass 06/11/2018 Allergy/Immunology No food allergy 06/11/2018 Constitutional No night sweats 04/05/2017 Constitutional No fatigue 04/05/2017 Constitutional No fever 04/05/2017 Constitutional No insomnia 04/05/2017 Constitutional No weight loss 04/05/2017 Constitutional weight gain/obesity 04/05/2017 Cardiovascular No arrhythmia 04/05/2017 Cardiovascular No chest pain/pressure 04/05/2017 Cardiovascular No edema 04/05/2017 Cardiovascular No exercise intolerance 04/05/2017 Cardiovascular No orthopnea 04/05/2017 Cardiovascular No palpitations 04/05/2017 Respiratory No asthma Respiratory No cough Respiratory No dyspnea 1 06/05/2016 Respiratory No pleuritic pain 04/05/2017 Respiratory No productive sputum 04/05/2017 Respiratory No wheezing 04/05/2017 Gastrointestinal No hemorrhoids 04/05/2017 Gastrointestinal No hepatitis 04/05/2017 Gastrointestinal No abdominal pain 04/05/2017 Gastrointestinal No constipation 04/05/2017 Gastrointestinal No diarrhea 04/05/2017 Gastrointestinal No gastroesophageal reflu x 04/05/2017 Gastrointestinal No melena 04/05/2017 Gastrointestinal No nausea 04/05/2017 Gastrointestinal No vomiting 04/05/2017 Cardiovascular hypertension 04/05/2017 Genitourinary/Nephrology No dysuria 04/05/2017 Genitourinary/Nephrology No nocturia 04/05/2017 Genitourinary/Nephrology No urinary incontinence 04/05/2017 Musculoskeletal No muscle weakness 04/05/2017 Musculoskeletal No myalgias 04/05/2017 Musculoskeletal No stiffness 04/05/2017 Musculoskeletal No swelling 04/05/2017 Musculoskeletal joint complaint 04/05/2017 Dermatologic No rash Dermatologic No scar Neurologic No dizziness 04/05/2017 Neurologic No headache 1 06/05/2016 Neurologic No neck pain 04/05/2017 Neurologic No syncope Psychiatric No anxiety 1 06/05/2016 Psychiatric No depression 04/05/2017 Endocrine No goiter 03/16 Endocrine No hyperglycemia 04/05/2017 Endocrine No hypoglycemia 04/05/2017 Endocrine hyperlipidemia 04/05/2017 Ears/Nose/Throat/Neck No hearing loss 04/05/2017 Ears/Nose/Throat/Neck No nasal discharge 04/05/2017 Ears/Nose/Throat/Neck No sinus congestion 04/05/2017 Ears/Nose/Throat/Neck No sore throat 04/05/2017 Constitutional No night sweats 02/12/2016 Constitutional chills Constitutional fatigue 0 02/12/2016 Constitutional No fever 02/12/2016 Eyes No eye discharge Eyes No eye pain 016 Eyes No vision change Ears/Nose/Throat/Neck No dizziness 02/12/2016 Ears/Nose/Throat/Neck eustachian tub e dysfunction 02/12/2016 Ears/Nose/Throat/Neck headache 02/12/2016 Ears/Nose/Throat/Neck nasal discharge 02/12/2016 Ears/Nose/Throat/Neck postnasal drip 02/12/2016 Ears/Nose/Throat/Neck sinus congestion 02/12/2016 Ears/Nose/Throat/Neck sore throat 02/12/2016 Cardiovascular No chest pain/pressure 02/12/2016 Cardiovascular No dyspnea 02/12/2016 Cardiovascular No orthopnea 02/12/2016 Cardiovascular No palpitations 02/12/2016 Cardiovascular No syncope 02/12/2016 Respiratory No chest tightness 02/12/2016 Respiratory cough 2015 Respiratory No dyspnea 0 02/12/2016 Respiratory No wheezing 02/12/2016 Gastrointestinal No diarrhea 02/12/2016 Gastrointestinal No nausea 02/12/2016 Gastrointestinal No vomiting 02/12/2016 Hematologic/Lymphatic No lymph node enlargement/mass 02/12/2016 Constitutional diaphoresis 02/12/2016 Ears/Nose/Throat/Neck facial mass 02/12/2016 Ears/Nose/Throat/Neck No otalgia 02/12/2016 Ears/Nose/Throat/Neck No otorrhea 02/12/2016 Respiratory chest congestion 02/12/2016 Dermatologic No rash Dermatologic No scar Constitutional No night sweats 01/25/2016 Constitutional No chills 01/25/2016 Constitutional fatigue 0 01/25/2016 Constitutional No fever 01/25/2016 Eyes No eye discharge Eyes No eye pain 016 Eyes No vision change Ears/Nose/Throat/Neck No dizziness 01/25/2016 Ears/Nose/Throat/Neck eustachian tub e dysfunction 01/25/2016 Ears/Nose/Throat/Neck headache 01/25/2016 Ears/Nose/Throat/Neck nasal discharge 01/25/2016 Ears/Nose/Throat/Neck postnasal drip 01/25/2016 Ears/Nose/Throat/Neck sinus congestion 01/25/2016 Ears/Nose/Throat/Neck sore throat 01/25/2016 Cardiovascular No chest pain/pressure 01/25/2016 Cardiovascular No dyspnea 01/25/2016 Cardiovascular No orthopnea 01/25/2016 Cardiovascular No palpitations 01/25/2016 Cardiovascular No syncope 01/25/2016 Respiratory No chest tightness 01/25/2016 Respiratory cough 2015 Respiratory No dyspnea 0 01/25/2016 Respiratory No wheezing 01/25/2016 Gastrointestinal No diarrhea 01/25/2016 Gastrointestinal No nausea 01/25/2016 Gastrointestinal No vomiting 01/25/2016 Hematologic/Lymphatic No lymph node enlargement/mass 01/25/2016 Ears/Nose/Throat/Neck facial pain 01/25/2016 Ears/Nose/Throat/Neck otalgia 01/25/2016 Ears/Nose/Throat/Neck No otorrhea 01/25/2016 Ears/Nose/Throat/Neck sinusitis 01/25/2016 Respiratory chest congestion 01/25/2016 Dermatologic No rash 04/2016 Dermatologic No scar 04/2016 Genitourinary/Nephrology dysuria 10/01/2015 Genitourinary/Nephrology pelvic pain 10/01/2015 Genitourinary/Nephrology urinary frequency 10/01/2015 Constitutional No chills 10/01/2015 Constitutional fatigue 0 10/01/2015 Constitutional No night sweats 10/01/2015 Constitutional No anorexia 10/01/2015 Constitutional No fever 10/01/2015 Cardiovascular No arrhythmia 10/01/2015 Cardiovascular No chest pain/pressure 10/01/2015 Cardiovascular No edema 10/01/2015 Cardiovascular No exercise intolerance 10/01/2015 Cardiovascular No orthopnea 10/01/2015 Cardiovascular No palpitations 10/01/2015 Respiratory No asthma Respiratory No cough Respiratory No dyspnea 0 10/01/2015 Respiratory No pleuritic pain 10/01/2015 Respiratory No productive sputum 10/01/2015 Respiratory No wheezing 10/01/2015 Gastrointestinal No hemorrhoids 10/01/2015 Gastrointestinal No hepatitis 10/01/2015 Gastrointestinal abdominal pain 10/01/2015 Gastrointestinal No constipation 10/01/2015 Gastrointestinal No diarrhea 10/01/2015 Gastrointestinal No gastroesophageal reflu x 10/01/2015 Gastrointestinal No melena 10/01/2015 Gastrointestinal nausea 10/01/2015 Gastrointestinal No vomiting 10/01/2015 Genitourinary/Nephrology No flank pain 10/01/2015 Genitourinary/Nephrology No hematuria 10/01/2015 Genitourinary/Nephrology No urinary urgenc y 10/01/2015 Genitourinary/Nephrology No urinary incontinence 10/01/2015 Dermatologic No rash Dermatologic No scar Hematologic/Lymphatic No abnormal ec chymoses 10/01/2015 Hematologic/Lymphatic No petechiae 10/01/2015 Hematologic/Lymphatic No abnormal bl eeding and bruising 10/01/2015 Hematologic/Lymphatic No anemia 10/01/2015 Hematologic/Lymphatic No lymph node enlargement/mass 10/01/2015 Constitutional No night sweats 08/04/2015 Constitutional No fatigue 08/04/2015 Constitutional No fever 08/04/2015 Constitutional No insomnia 08/04/2015 Constitutional No weight loss 08/04/2015 Eyes No eye pain 016 Eyes No photophobia 07/14 Eyes No vision change Eyes No visual disturbance 08/04/2015 Ears/Nose/Throat/Neck No hearing loss 08/04/2015 Ears/Nose/Throat/Neck No nasal discharge 08/04/2015 Ears/Nose/Throat/Neck No sinus congestion 08/04/2015 Ears/Nose/Throat/Neck No sore throat 08/04/2015 Cardiovascular No arrhythmia 08/04/2015 Cardiovascular No chest pain/pressure 08/04/2015 Cardiovascular No edema 08/04/2015 Cardiovascular No exercise intolerance 08/04/2015 Cardiovascular No orthopnea 08/04/2015 Cardiovascular No palpitations 08/04/2015 Respiratory No asthma Respiratory No cough Respiratory No dyspnea 0 08/04/2015 Respiratory No pleuritic pain 08/04/2015 Respiratory No productive sputum 08/04/2015 Respiratory No wheezing 08/04/2015 Gastrointestinal No hemorrhoids 08/04/2015 Gastrointestinal No hepatitis 08/04/2015 Gastrointestinal No abdominal pain 08/04/2015 Gastrointestinal No constipation 08/04/2015 Gastrointestinal No diarrhea 08/04/2015 Gastrointestinal No gastroesophageal reflu x 08/04/2015 Gastrointestinal No melena 08/04/2015 Gastrointestinal No nausea 08/04/2015 Gastrointestinal No vomiting 08/04/2015 Genitourinary/Nephrology No dysuria 08/04/2015 Genitourinary/Nephrology No nocturia 08/04/2015 Genitourinary/Nephrology No urinary incontinence 08/04/2015 Musculoskeletal No muscle weakness 08/04/2015 Musculoskeletal No myalgias 08/04/2015 Musculoskeletal No stiffness 08/04/2015 Musculoskeletal No swelling 08/04/2015 Dermatologic No rash Dermatologic No scar Neurologic No dizziness 08/04/2015 Neurologic No headache 0 08/04/2015 Neurologic No neck pain 08/04/2015 Neurologic No syncope Psychiatric No anxiety 0 08/04/2015 Psychiatric No depression 08/04/2015 Endocrine No goiter 07/14 Endocrine No hyperglycemia 08/04/2015 Endocrine No hypoglycemia 08/04/2015 Hematologic/Lymphatic No abnormal ec chymoses 08/04/2015 Hematologic/Lymphatic No petechiae 08/04/2015 Hematologic/Lymphatic No abnormal bl eeding and bruising 08/04/2015 Hematologic/Lymphatic No anemia 08/04/2015 Hematologic/Lymphatic No lymph node enlargement/mass 08/04/2015 Allergy/Immunology No food allergy 08/04/2015 Genitourinary/Nephrology menstrual i rregularity 05/27/2015 Constitutional diaphoresis 05/27/2015 Neurologic seizure 03/10 Neurologic headache 02/13 Eyes No eye pain 015 Eyes No photophobia 02/13 Eyes No vision change Eyes No visual disturbance 03/10/2015 Constitutional fatigue 1 Psychiatric stress 03/10 Cardiovascular hypertension 03/10/2015 Neurologic dizziness Neurologic mental status change 03/10/2015 Respiratory No asthma Respiratory No cough Respiratory No dyspnea 1 Respiratory No pleuritic pain 03/10/2015 Respiratory No productive sputum 03/10/2015 Respiratory No wheezing 03/10/2015 Gastrointestinal No hemorrhoids 03/10/2015 Gastrointestinal No hepatitis 03/10/2015 Gastrointestinal No abdominal pain 03/10/2015 Gastrointestinal No constipation 03/10/2015 Gastrointestinal No diarrhea 03/10/2015 Gastrointestinal No gastroesophageal reflu x 03/10/2015 Gastrointestinal No melena 03/10/2015 Gastrointestinal No nausea 03/10/2015 Gastrointestinal No vomiting 03/10/2015 Genitourinary/Nephrology No dysuria 03/10/2015 Genitourinary/Nephrology No nocturia 03/10/2015 Genitourinary/Nephrology No urinary incontinence 03/10/2015 Musculoskeletal No muscle weakness 03/10/2015 Musculoskeletal No myalgias 03/10/2015 Musculoskeletal No stiffness 03/10/2015 Musculoskeletal No swelling 03/10/2015 Dermatologic No rash Dermatologic No scar Endocrine No goiter 02/13 Endocrine No hyperglycemia 03/10/2015 Endocrine No hypoglycemia 03/10/2015 Constitutional diaphoresis 06/30/2014 Cardiovascular No arrhythmia 06/30/2014 Cardiovascular No chest pain/pressure 06/30/2014 Cardiovascular No edema 06/30/2014 Cardiovascular No exercise intolerance 06/30/2014 Cardiovascular No orthopnea 06/30/2014 Cardiovascular No palpitations 06/30/2014 Respiratory No asthma Respiratory No cough Respiratory No dyspnea 0 06/30/2014 Respiratory No pleuritic pain 06/30/2014 Respiratory No productive sputum 06/30/2014 Respiratory No wheezing 06/30/2014 Gastrointestinal No hemorrhoids 06/30/2014 Gastrointestinal No hepatitis 06/30/2014 Gastrointestinal No abdominal pain 06/30/2014 Gastrointestinal No constipation 06/30/2014 Gastrointestinal No diarrhea 06/30/2014 Gastrointestinal No gastroesophageal reflu x 06/30/2014 Gastrointestinal No melena 06/30/2014 Gastrointestinal No nausea 06/30/2014 Gastrointestinal No vomiting 06/30/2014 Genitourinary/Nephrology No dysuria 06/30/2014 Genitourinary/Nephrology No nocturia 06/30/2014 Genitourinary/Nephrology No urinary incontinence 06/30/2014 Musculoskeletal No muscle weakness 06/30/2014 Musculoskeletal No myalgias 06/30/2014 Musculoskeletal No stiffness 06/30/2014 Musculoskeletal No swelling 06/30/2014 Dermatologic No rash Dermatologic No scar Neurologic No dizziness 06/30/2014 Neurologic No headache 0 06/30/2014 Neurologic No neck pain 06/30/2014 Neurologic No syncope Psychiatric No anxiety 0 06/30/2014 Psychiatric No depression 06/30/2014 Endocrine No goiter 06/15 Endocrine No hyperglycemia 06/30/2014 Endocrine No hypoglycemia 06/30/2014 Endocrine hyperlipidemia 06/30/2014 Ears/Nose/Throat/Neck No hearing loss 06/30/2014 Ears/Nose/Throat/Neck No nasal discharge 06/30/2014 Ears/Nose/Throat/Neck No sinus congestion 06/30/2014 Ears/Nose/Throat/Neck No sore throat 06/30/2014 Respiratory cough 2013 Ears/Nose/Throat/Neck sore throat 08/12/2013 Dermatologic rash 2013 Respiratory cough 2013 Constitutional fatigue 0 05/31/2013 Constitutional malaise 0 05/31/2013 Ears/Nose/Throat/Neck sore throat 05/31/2013 Respiratory dyspnea on exertion 05/31/2013 Genitourinary/Nephrology dysuria 05/31/2013 Genitourinary/Nephrology polyuria 05/31/2013 Constitutional fever Constitutional chills Ears/Nose/Throat/Neck headache 05/27/2013 Ears/Nose/Throat/Neck sinus congestion 05/27/2013 Ears/Nose/Throat/Neck sore throat 05/27/2013 Respiratory cough 2013 Respiratory dyspnea on exertion 05/27/2013 Respiratory wheezing Dermatologic rash 2012 Neurologic headache 02/12 Constitutional No fever 11/29/2012 Dermatologic rash 2012 Constitutional No fever 11/12/2012 Respiratory cough 2012 Respiratory No cigarette smoking 11/12/2012 Respiratory No asthma Ears/Nose/Throat/Neck nasal discharge 11/12/2012 Ears/Nose/Throat/Neck No otalgia 11/12/2012 Ears/Nose/Throat/Neck sinus congestion 11/12/2012 Ears/Nose/Throat/Neck sore throat 11/12/2012 Gastrointestinal No diarrhea 11/12/2012 Dermatologic No rash 05/2012 Dermatologic No sores Gastrointestinal No abdominal pain 11/12/2012 Gastrointestinal No vomiting 11/12/2012 Constitutional No fever 07/30/2012 Ears/Nose/Throat/Neck nasal discharge 07/30/2012 Ears/Nose/Throat/Neck otalgia 07/30/2012 Ears/Nose/Throat/Neck sinus congestion 07/30/2012 Ears/Nose/Throat/Neck sinusitis 07/30/2012 Ears/Nose/Throat/Neck sore throat 07/30/2012 Respiratory cough 2012 Respiratory No cigarette smoking 07/30/2012 Gastrointestinal No constipation 07/30/2012 Gastrointestinal No diarrhea 07/30/2012 Gastrointestinal No vomiting 07/30/2012 Gastrointestinal No nausea 07/30/2012 Dermatologic No rash Dermatologic No sores Musculoskeletal joint complaint 07/30/2012 Musculoskeletal joint complaint 06/04/2012 Constitutional No insomnia 06/04/2012 Constitutional No fatigue 06/04/2012 Ears/Nose/Throat/Neck No nasal allergies 06/04/2012 Ears/Nose/Throat/Neck No otalgia 06/04/2012 Respiratory No cough Respiratory No cigarette smoking 06/04/2012 Gastrointestinal No abdominal pain 06/04/2012 Gastrointestinal No gastroesophageal reflu x 06/04/2012 Gastrointestinal No nausea 06/04/2012 Neurologic headache 08/0 12/2011 Dermatologic No rash 12/2011 Dermatologic No scar 12/2011 Musculoskeletal No muscle weakness 12/21/2011 Musculoskeletal No myalgias 12/21/2011 Musculoskeletal No stiffness 12/21/2011 Musculoskeletal No swelling 12/21/2011 Genitourinary/Nephrology No dysuria 12/21/2011 Genitourinary/Nephrology No nocturia 12/21/2011 Genitourinary/Nephrology No urinary incontinence 12/21/2011 Gastrointestinal No hemorrhoids 12/21/2011 Gastrointestinal No hepatitis 12/21/2011 Gastrointestinal No abdominal pain 12/21/2011 Gastrointestinal No constipation 12/21/2011 Gastrointestinal No diarrhea 12/21/2011 Gastrointestinal No gastroesophageal reflu x 12/21/2011 Gastrointestinal No melena 12/21/2011 Gastrointestinal No nausea 12/21/2011 Gastrointestinal No vomiting 12/21/2011 Respiratory No asthma Respiratory No pleuritic pain 12/21/2011 Respiratory No productive sputum 12/21/2011 Respiratory No cough 12/2011 Respiratory No dyspnea 0 12/21/2011 Respiratory No wheezing 12/21/2011 Cardiovascular No arrhythmia 12/21/2011 Cardiovascular No chest pain/pressure 12/21/2011 Cardiovascular No edema 12/21/2011 Cardiovascular No exercise intolerance 12/21/2011 Cardiovascular No orthopnea 12/21/2011 Cardiovascular No palpitations 12/21/2011 Ears/Nose/Throat/Neck No hearing loss 12/21/2011 Ears/Nose/Throat/Neck No nasal discharge 12/21/2011 Ears/Nose/Throat/Neck No sinus congestion 12/21/2011 Ears/Nose/Throat/Neck No sore throat 12/21/2011 Constitutional No night sweats 12/21/2011 Constitutional No fatigue 12/21/2011 Constitutional No fever 12/21/2011 Constitutional No insomnia 12/21/2011 Constitutional No weight loss 12/21/2011 Psychiatric No anxiety 0 12/21/2011 Psychiatric No depression 12/21/2011 Endocrine No goiter 12/2011 Endocrine No hyperglycemia 12/21/2011 Endocrine No hypoglycemia 12/21/2011 Gastrointestinal hemorrhoids 10/07/2011 Gastrointestinal No constipation 10/07/2011 Gastrointestinal No diarrhea 10/07/2011 Gastrointestinal No hematochezia 10/07/2011 Gastrointestinal No abdominal pain 10/07/2011 Genitourinary/Nephrology No urinary urgenc y 10/07/2011 Genitourinary/Nephrology No urinary frequency 10/07/2011 Genitourinary/Nephrology No 10/07/2011 Genitourinary/Nephrology No menstrua l irregularity 10/07/2011 Constitutional No fever 10/07/2011 Dermatologic No rash Cardiovascular hypertension 09/05/2011 Respiratory No asthma Respiratory No pleuritic pain 09/05/2011 Respiratory No productive sputum 09/05/2011 Respiratory No cough Respiratory No dyspnea 0 09/05/2011 Respiratory No wheezing 09/05/2011 Gastrointestinal No hemorrhoids 09/05/2011 Gastrointestinal No hepatitis 09/05/2011 Gastrointestinal No abdominal pain 09/05/2011 Gastrointestinal No constipation 09/05/2011 Gastrointestinal No diarrhea 09/05/2011 Gastrointestinal No gastroesophageal reflu x 09/05/2011 Gastrointestinal No melena 09/05/2011 Gastrointestinal No nausea 09/05/2011 Gastrointestinal No vomiting 09/05/2011 Genitourinary/Nephrology No dysuria 09/05/2011 Genitourinary/Nephrology No nocturia 09/05/2011 Genitourinary/Nephrology No urinary incontinence 09/05/2011 Musculoskeletal No muscle weakness 09/05/2011 Musculoskeletal No myalgias 09/05/2011 Musculoskeletal No stiffness 09/05/2011 Musculoskeletal No swelling 09/05/2011 Dermatologic No rash Dermatologic No scar Neurologic headache 08/14 Psychiatric No anxiety 0 09/05/2011 Psychiatric No depression 09/05/2011 Endocrine No goiter 08/14 Endocrine No hyperglycemia 09/05/2011 Endocrine No hypoglycemia 09/05/2011 Ears/Nose/Throat/Neck No hearing loss 09/05/2011 Ears/Nose/Throat/Neck No nasal discharge 09/05/2011 Ears/Nose/Throat/Neck No sinus congestion 09/05/2011 Ears/Nose/Throat/Neck No sore throat 09/05/2011 Constitutional No night sweats 09/05/2011 Constitutional fatigue 0 09/05/2011 Constitutional No fever 09/05/2011 Constitutional No insomnia 09/05/2011 Constitutional No weight loss 09/05/2011 Neurologic dizziness Gastrointestinal diarrhea 04/28/2011 Constitutional No fever 04/28/2011 Ears/Nose/Throat/Neck headache 04/28/2011 Ears/Nose/Throat/Neck nasal discharge 04/28/2011 Ears/Nose/Throat/Neck No otalgia 04/28/2011 Ears/Nose/Throat/Neck sinus congestion 04/28/2011 Ears/Nose/Throat/Neck sore throat 04/28/2011 Respiratory No cough Respiratory No asthma Dermatologic rash 2010 Dermatologic No sores Musculoskeletal carpal tunnel syndrome 04/13/2011 Ears/Nose/Throat/Neck facial pain 04/13/2011 Ears/Nose/Throat/Neck nasal trauma 04/13/2011 Ears/Nose/Throat/Neck nasal pain 04/13/2011 Neurologic headache 03/17 Constitutional No fever 02/04/2011 Gastrointestinal No abdominal pain 02/04/2011 Gastrointestinal No diarrhea 02/04/2011 Gastrointestinal No constipation 02/04/2011 Gastrointestinal No nausea 02/04/2011 Gastrointestinal No vomiting 02/04/2011 Ears/Nose/Throat/Neck No otalgia 02/04/2011 Ears/Nose/Throat/Neck No sore throat 02/04/2011 Respiratory cough 2010 Genitourinary/Nephrology urinary urgency 02/04/2011 Genitourinary/Nephrology urinary frequency 02/04/2011 Musculoskeletal No low back pain 02/04/2011 Genitourinary/Nephrology No 02/04/2011 Constitutional No fever 12/06/2010 Ears/Nose/Throat/Neck headache 12/06/2010 Respiratory No cough Gastrointestinal No constipation 12/06/2010 Gastrointestinal No diarrhea 12/06/2010 Gastrointestinal No nausea 12/06/2010 Gastrointestinal No vomiting 12/06/2010 Genitourinary/Nephrology No menstrua l irregularity 12/06/2010 Musculoskeletal No back pain 12/06/2010 Musculoskeletal No bone pain 12/06/2010 Musculoskeletal No shoulder pain 12/06/2010 Dermatologic No rash Dermatologic No sores Psychiatric No stress Psychiatric No anxiety 0 12/06/2010 Psychiatric No depression 12/06/2010 Endocrine No diabetes mellitus type 1 12/06/2010 Endocrine No diabetes mellitus type 2 12/06/2010 Allergy/Immunology No angioedema 12/06/2010 Allergy/Immunology No anaphylactoid reaction 12/06/2010 Allergy/Immunology No food allergy 12/06/2010 Neurologic headache 120 05/2009 Respiratory apneic events 04/14/2010 Constitutional fatigue 1 06/15/2009 Neurologic No dizziness 02/16/2010 Neurologic headache 100 09/2009 Musculoskeletal neck pain 02/16/2010 Musculoskeletal back pain 02/16/2010 Constitutional No fever 02/03/2010 Ears/Nose/Throat/Neck otalgia 02/03/2010 Ears/Nose/Throat/Neck headache 02/03/2010 Ears/Nose/Throat/Neck nasal discharge 02/03/2010 Ears/Nose/Throat/Neck sinusitis 02/03/2010 Ears/Nose/Throat/Neck sore throat 02/03/2010 Respiratory cough 2009 Respiratory No cigarette smoking 02/03/2010 Gastrointestinal No constipation 02/03/2010 Gastrointestinal No diarrhea 02/03/2010 Gastrointestinal No vomiting 02/03/2010 Gastrointestinal No nausea 02/03/2010 Eyes No vision change Eyes No photophobia 01/14 Eyes No visual disturbance 02/03/2010 Dermatologic No rash Dermatologic No sores Neurologic No alteration of consciousness 02/03/2010 Neurologic headache 01/14 Neurologic No gait abnormality 02/03/2010 Neurologic No dizziness 02/03/2010 Neurologic No seizure Psychiatric No anxiety 0 02/03/2010 Psychiatric No stress Psychiatric No depression 02/03/2010 Neurologic headache 01/13 Neurologic mental status change 01/27/2010 Genitourinary/Nephrology No dysuria 01/27/2010 Genitourinary/Nephrology No nocturia 01/27/2010 Genitourinary/Nephrology No urinary incontinence 01/27/2010 Gastrointestinal nausea 01/27/2010 Constitutional fatigue 0 01/25/2010 Neurologic headache 01/13 Neurologic mental status change 01/25/2010 Neurologic alteration of consciousness 01/25/2010 Neurologic spasms/spasticity 01/25/2010 Constitutional No fever 12/08/2009 Constitutional No recent illness 12/08/2009 Ears/Nose/Throat/Neck No otalgia 12/08/2009 Ears/Nose/Throat/Neck No sore throat 12/08/2009 Ears/Nose/Throat/Neck No tonsillitis 12/08/2009 Ears/Nose/Throat/Neck No nasal discharge 12/08/2009 Ears/Nose/Throat/Neck No nasal allergies 12/08/2009 Cardiovascular No chest pain/pressure 12/08/2009 Cardiovascular No arrhythmia 12/08/2009 Cardiovascular No syncope 12/08/2009 Cardiovascular No hypertension 12/08/2009 Respiratory No asthma Respiratory No cigarette smoking 12/08/2009 Respiratory No cough Gastrointestinal No diarrhea 12/08/2009 Gastrointestinal No constipation 12/08/2009 Gastrointestinal No vomiting 12/08/2009 Gastrointestinal No gastroesophageal reflu x 12/08/2009 Genitourinary/Nephrology No urinary urgenc y 12/08/2009 Genitourinary/Nephrology No urinary frequency 12/08/2009 Genitourinary/Nephrology No 12/08/2009 Musculoskeletal No bone pain 12/08/2009 Musculoskeletal No low back pain 12/08/2009 Musculoskeletal No neck pain 12/08/2009 Dermatologic No rash Dermatologic No sores Psychiatric No anxiety 0 12/08/2009 Psychiatric No stress Psychiatric No depression 12/08/2009 Musculoskeletal back pain 09/01/2009 Genitourinary/Nephrology urinary frequency 09/01/2009 Neurologic No paresthesia 09/01/2009 Dermatologic callus 08/14 Physical Exam Exam Name System Name It em Name Status Result Effective Dates Notes Full Exam - General Constitutional general appearance Overall: well nourished 01/15/2019 None Full Exam - General Constitutional general appearance Overall: in no acute distress 01/15/2019 None Full Exam - General Respiratory respiratory effort/rhythm Overall: no retractions 01/15/2019 None Full Exam - General Respiratory respiratory effort/rhythm Overall: normal rate 01/15/2019 None Full Exam - General Respiratory auscultation Overall: breath sounds clear bilater ally 01/15/2019 None Full Exam - General Cardiovascular auscultation of heart Overall: regular rate 01/15/2019 None Full Exam - General Cardiovascular auscultation of heart Overall: no murmurs 01/15/2019 None Full Exam - General Psychiatric orientation/consciousness Overall: oriented to person, place and time 01/15/2019 None Full Exam - General Psychiatric mood and affect Overall: normal mood and affect 01/15/2019 None Full Exam - General Psychiatric behavior/psychomotor activity Overall: no tics, normal psychomotor activity 01/15/2019 None Full Exam - General Neurologic mental status Overall: alert 9 None Full Exam - General Constitutional general appearance Overall: well nourished 07/20/2018 None Full Exam - General Constitutional general appearance Overall: well developed 07/20/2018 None Full Exam - General Constitutional general appearance Overall: in no acute distress 07/20/2018 None Full Exam - General Eyes conjunctiva/eyelids Overall: conjunctiva clear 07/20/2018 None Full Exam - General Eyes conjunctiva/eyelids Overall: cornea clear 07/20/2018 None Full Exam - General Eyes conjunctiva/eyelids Overall: eyelids normal 07/20/2018 None Full Exam - General Eyes pupils and irises Overall: pupils equal, round, reacti ve to light and accomodation 07/20/2018 None Full Exam - General Ears/Nose/Throat otoscopic exam Overall: external auditory canals clear 07/20/2018 None Full Exam - General Ears/Nose/Throat otoscopic exam Overall: tympanic membranes clear 07/20/2018 None Full Exam - General Ears/Nose/Throat oral cavity/pharynx/larynx Overall: oral mucosa clear 07/20/2018 None Full Exam - General Neck inspection of neck Overall: normal size 07/20/2018 None Full Exam - General Neck inspection of neck Overall: normal appearance 07/20/2018 None Full Exam - General Respiratory auscultation Left lower lung field: expiratory st ridor 07/20/2018 None Full Exam - General Respiratory auscultation Left lower lung field: inspiratory w heezes 07/20/2018 None Full Exam - General Respiratory auscultation Right lower lung field: expiratory s tridor 07/20/2018 None Full Exam - General Respiratory auscultation Right lower lung field: inspiratory wheezes 07/20/2018 None Full Exam - General Respiratory respiratory effort/rhythm Overall: no retractions 07/20/2018 None Full Exam - General Respiratory respiratory effort/rhythm Overall: normal rate 07/20/2018 None Full Exam - General Cardiovascular auscultation of heart Overall: regular rate 07/20/2018 None Full Exam - General Cardiovascular auscultation of heart Overall: normal heart sounds 07/20/2018 None Full Exam - General Musculoskeletal gait and station Overall: normal gait 07/20/2018 None Full Exam - General Musculoskeletal gait and station Overall: normal station 07/20/2018 None Full Exam - General Integument inspection of skin Overall: no rash, lesions 07/20/2018 None Full Exam - General Neurologic mental status Overall: alert 9 None Full Exam - General Neurologic mental status Overall: oriented 07/20/2018 None Full Exam - General Neurologic motor Overall: normal bulk, tone 07/20/2018 None Full Exam - General Psychiatric orientation/consciousness Overall: oriented to person, place and time 07/20/2018 None Full Exam - General Psychiatric mood and affect Overall: normal mood and affect 07/20/2018 None Full Exam - General Respiratory auscultation Right upper lung field: expiratory w heezes 07/20/2018 None Full Exam - General Respiratory auscultation Left upper lung field: expiratory wh eezes 07/20/2018 None Full Exam - General Cardiovascular extremities Overall: No edema 07/20/2018 None Full Exam - General Cardiovascular extremities Overall: No cyanosis 07/20/2018 None Full Exam - General Musculoskeletal head and neck Overall: head atraumatic 07/20/2018 None Full Exam - General Musculoskeletal head and neck Overall: cervical spine benign 07/20/2018 None Full Exam - General Constitutional general appearance Overall: well nourished 06/11/2018 None Full Exam - General Constitutional general appearance Overall: well developed 06/11/2018 None Full Exam - General Constitutional general appearance Overall: in no acute distress 06/11/2018 None Full Exam - General Neurologic mental status Overall: alert 9 None Full Exam - General Neurologic mental status Overall: oriented 06/11/2018 None Full Exam - General Psychiatric mood and affect Overall: normal mood and affect 06/11/2018 None Full Exam - General Respiratory auscultation Overall: breath sounds clear bilater ally 06/11/2018 None Full Exam - General Cardiovascular auscultation of heart Overall: regular rate 06/11/2018 None Full Exam - General Cardiovascular auscultation of heart Overall: normal heart sounds 06/11/2018 None Full Exam - General Cardiovascular extremities Overall: no clubbing 06/11/2018 None Full Exam - General Cardiovascular extremities Overall: No edema 06/11/2018 None Full Exam - General Cardiovascular extremities Overall: No cyanosis 06/11/2018 None Full Exam - General Abdomen abdominal exam Overall: no masses 06/11/2018 None Full Exam - General Abdomen abdominal exam Overall: no tenderness 06/11/2018 None Full Exam - General Abdomen abdominal exam Overall: normal bowel sounds 06/11/2018 None Full Exam - General Abdomen abdominal exam Overall: soft 06/11/2018 None Full Exam - General Neck inspection of neck Overall: normal size 06/11/2018 None Full Exam - General Neck inspection of neck Overall: no masses 06/11/2018 None Full Exam - General Ears/Nose/Throat otoscopic exam Overall: external auditory canals clear 06/11/2018 None Full Exam - General Ears/Nose/Throat otoscopic exam Overall: tympanic membranes clear 06/11/2018 None Full Exam - General Ears/Nose/Throat internal nose Overall: bilateral nasal cavities clear 06/11/2018 None Full Exam - General Ears/Nose/Throat oral cavity/pharynx/larynx Overall: oral mucosa clear 06/11/2018 None Full Exam - General Musculoskeletal gait and station Overall: normal gait 06/11/2018 None Full Exam - General Musculoskeletal gait and station Station: kyphosis 06/11/2018 None Full Exam - General Constitutional general appearance Overall: well nourished 04/05/2017 None Full Exam - General Constitutional general appearance Overall: well developed 04/05/2017 None Full Exam - General Constitutional general appearance Overall: in no acute distress 04/05/2017 None Full Exam - General Neurologic mental status Overall: alert 7 None Full Exam - General Neurologic mental status Overall: oriented 04/05/2017 None Full Exam - General Psychiatric mood and affect Overall: normal mood and affect 04/05/2017 None Full Exam - General Respiratory auscultation Overall: breath sounds clear bilater ally 04/05/2017 None Full Exam - General Cardiovascular auscultation of heart Overall: regular rate 04/05/2017 None Full Exam - General Cardiovascular auscultation of heart Overall: normal heart sounds 04/05/2017 None Full Exam - General Cardiovascular extremities Overall: no clubbing 04/05/2017 None Full Exam - General Cardiovascular extremities Overall: No edema 04/05/2017 None Full Exam - General Cardiovascular extremities Overall: No cyanosis 04/05/2017 None Full Exam - General Neck inspection of neck Overall: normal size 04/05/2017 None Full Exam - General Neck inspection of neck Overall: no masses 04/05/2017 None Full Exam - General Ears/Nose/Throat otoscopic exam Overall: external auditory canals clear 04/05/2017 None Full Exam - General Ears/Nose/Throat otoscopic exam Overall: tympanic membranes clear 04/05/2017 None Full Exam - General Ears/Nose/Throat internal nose Overall: bilateral nasal cavities clear 04/05/2017 None Full Exam - General Ears/Nose/Throat oral cavity/pharynx/larynx Overall: oral mucosa clear 04/05/2017 None Full Exam - General Abdomen abdominal exam Overall: no masses 04/05/2017 None Full Exam - General Abdomen abdominal exam Overall: no tenderness 04/05/2017 None Full Exam - General Abdomen abdominal exam Overall: normal bowel sounds 04/05/2017 None Full Exam - General Abdomen abdominal exam Overall: soft 04/05/2017 None Full Exam - General Genitourinary uterus Overall: normal size 04/05/2017 None Full Exam - General Genitourinary cervix Overall: no discharge 04/05/2017 None Full Exam - General Genitourinary labia and vagina Overall: normal hair distribution 04/05/2017 None Full Exam - General Genitourinary labia and vagina Overall: no lesions 04/05/2017 None Full Exam - General Genitourinary adnexa/parametria Overall: no tenderness 04/05/2017 None Full Exam - General Musculoskeletal gait and station Gait: symmetric 04/05/2017 None Full Exam - General Chest/Breast breast and axillae palpation Overall: breasts non- tender 04/05/2017 None Full Exam - General Chest/Breast breast and axillae palpation Overall: no masses 04/05/2017 None Full Exam - General Chest/Breast breast and axillae palpation Overall: axillae non- tender 04/05/2017 None Full Exam - General Chest/Breast breast and axillae palpation Overall: no nipple discharge 04/05/2017 None Full Exam - General Constitutional general appearance Overall: well nourished 02/12/2016 None Full Exam - General Constitutional general appearance Overall: well developed 02/12/2016 None Full Exam - General Constitutional general appearance Overall: in no acute distress 02/12/2016 None Full Exam - General Constitutional general appearance Nourishment: well nourished 02/12/2016 None Full Exam - General Constitutional general appearance Evidence of Distress: in no acute distress 02/12/2016 None Full Exam - General Eyes conjunctiva/eyelids Overall: conjunctiva clear 02/12/2016 None Full Exam - General Eyes conjunctiva/eyelids Overall: cornea clear 02/12/2016 None Full Exam - General Eyes conjunctiva/eyelids Overall: eyelids normal 02/12/2016 None Full Exam - General Eyes pupils and irises Overall: pupils equal, round, reacti ve to light and accomodation 02/12/2016 None Full Exam - General Ears/Nose/Throat external ear Overall: normal appearance 02/12/2016 None Full Exam - General Ears/Nose/Throat external nose Overall: benign appearance 02/12/2016 None Full Exam - General Ears/Nose/Throat otoscopic exam Overall: external auditory canals clear 02/12/2016 None Full Exam - General Ears/Nose/Throat otoscopic exam Left tympanic membrane: air- fluid level 02/12/2016 scarring Full Exam - General Ears/Nose/Throat otoscopic exam Right tympanic membrane: air- fluid level 02/12/2016 scarring Full Exam - General Ears/Nose/Throat internal nose Left nasal cavity: mucosal edema 02/12/2016 None Full Exam - General Ears/Nose/Throat internal nose Right nasal cavity: mucosal edema 02/12/2016 None Full Exam - General Ears/Nose/Throat lips/teeth/gingiva Overall: benign lips 02/12/2016 None Full Exam - General Ears/Nose/Throat lips/teeth/gingiva Overall: normal dentition 02/12/2016 None Full Exam - General Ears/Nose/Throat oral cavity/pharynx/larynx Oropharynx: a normal exam 02/12/2016 None Full Exam - General Respiratory auscultation Overall: breath sounds clear bilater ally 02/12/2016 None Full Exam - General Cardiovascular auscultation of heart Overall: regular rate 02/12/2016 None Full Exam - General Cardiovascular auscultation of heart Overall: normal heart sounds 02/12/2016 None Full Exam - General Cardiovascular auscultation of heart Overall: no murmurs 02/12/2016 None Full Exam - General Lymphatic neck nodes Overall: anterior cervical chain kevin ign 02/12/2016 None Full Exam - General Lymphatic neck nodes Overall: posterior cervical chain be nign 02/12/2016 None Full Exam - General Integument inspection of skin Overall: no rash, lesions 02/12/2016 None Full Exam - General Psychiatric mood and affect Overall: normal mood and affect 02/12/2016 None Full Exam - General Ears/Nose/Throat otoscopic exam Otorrhea: absent 02/12/2016 None Full Exam - General Ears/Nose/Throat otoscopic exam Perforation: absent 02/12/2016 None Full Exam - General Ears/Nose/Throat internal nose Sinus tenderness: left maxillary 02/12/2016 None Full Exam - General Ears/Nose/Throat internal nose Sinus tenderness: right maxillary 02/12/2016 None Full Exam - General Constitutional general appearance Overall: well nourished 01/25/2016 None Full Exam - General Constitutional general appearance Overall: well developed 01/25/2016 None Full Exam - General Constitutional general appearance Overall: in no acute distress 01/25/2016 None Full Exam - General Constitutional general appearance Nourishment: well nourished 01/25/2016 None Full Exam - General Constitutional general appearance Evidence of Distress: in no acute distress 01/25/2016 None Full Exam - General Eyes conjunctiva/eyelids Overall: conjunctiva clear 01/25/2016 None Full Exam - General Eyes conjunctiva/eyelids Overall: cornea clear 01/25/2016 None Full Exam - General Eyes conjunctiva/eyelids Overall: eyelids normal 01/25/2016 None Full Exam - General Eyes pupils and irises Overall: pupils equal, round, reacti ve to light and accomodation 01/25/2016 None Full Exam - General Ears/Nose/Throat external ear Overall: normal appearance 01/25/2016 None Full Exam - General Ears/Nose/Throat external nose Overall: benign appearance 01/25/2016 None Full Exam - General Ears/Nose/Throat otoscopic exam Overall: external auditory canals clear 01/25/2016 None Full Exam - General Ears/Nose/Throat otoscopic exam Left tympanic membrane: air- fluid level 01/25/2016 None Full Exam - General Ears/Nose/Throat otoscopic exam Right tympanic membrane: air- fluid level 01/25/2016 None Full Exam - General Ears/Nose/Throat internal nose Left nasal cavity: mucosal edema 01/25/2016 None Full Exam - General Ears/Nose/Throat internal nose Right nasal cavity: mucosal edema 01/25/2016 None Full Exam - General Ears/Nose/Throat lips/teeth/gingiva Overall: benign lips 01/25/2016 None Full Exam - General Ears/Nose/Throat lips/teeth/gingiva Overall: normal dentition 01/25/2016 None Full Exam - General Ears/Nose/Throat oral cavity/pharynx/larynx Oropharynx: a normal exam 01/25/2016 None Full Exam - General Respiratory auscultation Overall: breath sounds clear bilater ally 01/25/2016 None Full Exam - General Cardiovascular auscultation of heart Overall: regular rate 01/25/2016 None Full Exam - General Cardiovascular auscultation of heart Overall: normal heart sounds 01/25/2016 None Full Exam - General Cardiovascular auscultation of heart Overall: no murmurs 01/25/2016 None Full Exam - General Lymphatic neck nodes Overall: anterior cervical chain kevin ign 01/25/2016 None Full Exam - General Lymphatic neck nodes Overall: posterior cervical chain be nign 01/25/2016 None Full Exam - General Integument inspection of skin Overall: no rash, lesions 01/25/2016 None Full Exam - General Psychiatric mood and affect Overall: normal mood and affect 01/25/2016 None Full Exam - General Ears/Nose/Throat internal nose Sinus tenderness: left maxillary 01/25/2016 None Full Exam - General Ears/Nose/Throat internal nose Sinus tenderness: right maxillary 01/25/2016 None Full Exam - General Constitutional general appearance Overall: well nourished 10/01/2015 None Full Exam - General Constitutional general appearance Overall: well developed 10/01/2015 None Full Exam - General Constitutional general appearance Overall: in no acute distress 10/01/2015 None Full Exam - General Respiratory auscultation Overall: breath sounds clear bilater ally 10/01/2015 None Full Exam - General Cardiovascular auscultation of heart Overall: regular rate 10/01/2015 None Full Exam - General Cardiovascular auscultation of heart Overall: normal heart sounds 10/01/2015 None Full Exam - General Abdomen abdominal exam Overall: soft 10/01/2015 None Full Exam - General Abdomen abdominal exam Overall: no masses 10/01/2015 None Full Exam - General Abdomen abdominal exam Overall: normal bowel sounds 10/01/2015 None Full Exam - General Integument inspection of skin Overall: no rash, lesions 10/01/2015 None Full Exam - General Abdomen abdominal exam Left upper quadrant: non-tender to p alpation 10/01/2015 None Full Exam - General Abdomen abdominal exam Right upper quadrant: non-tender to palpation 10/01/2015 None Full Exam - General Abdomen abdominal exam Left lower quadrant: tender to palpa tion 10/01/2015 None Full Exam - General Abdomen abdominal exam Right lower quadrant: tender to palp ation 10/01/2015 None Full Exam - General Neurologic mental status Overall: alert 6 None Full Exam - General Neurologic mental status Overall: oriented 10/01/2015 None Full Exam - General Constitutional general appearance Overall: well nourished 08/04/2015 None Full Exam - General Constitutional general appearance Overall: well developed 08/04/2015 None Full Exam - General Constitutional general appearance Overall: in no acute distress 08/04/2015 None Full Exam - General Neurologic mental status Overall: alert 6 None Full Exam - General Neurologic mental status Overall: oriented 08/04/2015 None Full Exam - General Psychiatric mood and affect Overall: normal mood and affect 08/04/2015 None Full Exam - General Respiratory auscultation Overall: breath sounds clear bilater ally 08/04/2015 None Full Exam - General Cardiovascular auscultation of heart Overall: regular rate 08/04/2015 None Full Exam - General Cardiovascular auscultation of heart Overall: normal heart sounds 08/04/2015 None Full Exam - General Cardiovascular auscultation of heart S3 (ventricular gallop): present 08/04/2015 None Full Exam - General Cardiovascular auscultation of heart Murmur: previously known murmur unchanged 08/04/2015 None Full Exam - General Cardiovascular extremities Overall: no clubbing 08/04/2015 None Full Exam - General Cardiovascular extremities Overall: No cyanosis 08/04/2015 None Full Exam - General Cardiovascular extremities Overall: No edema 08/04/2015 None Full Exam - General Neck inspection of neck Overall: normal size 08/04/2015 None Full Exam - General Neck inspection of neck Overall: no masses 08/04/2015 None Full Exam - General Ears/Nose/Throat otoscopic exam Overall: external auditory canals clear 08/04/2015 None Full Exam - General Ears/Nose/Throat otoscopic exam Overall: tympanic membranes clear 08/04/2015 None Full Exam - General Ears/Nose/Throat internal nose Overall: bilateral nasal cavities clear 08/04/2015 None Full Exam - General Ears/Nose/Throat oral cavity/pharynx/larynx Overall: oral mucosa clear 08/04/2015 None Full Exam - General Abdomen abdominal exam Overall: no masses 08/04/2015 None Full Exam - General Abdomen abdominal exam Overall: no tenderness 08/04/2015 None Full Exam - General Abdomen abdominal exam Overall: normal bowel sounds 08/04/2015 None Full Exam - General Abdomen abdominal exam Overall: soft 08/04/2015 None Full Exam - General Chest/Breast breast and axillae palpation Overall: breasts non- tender 08/04/2015 None Full Exam - General Chest/Breast breast and axillae palpation Overall: no masses 08/04/2015 None Full Exam - General Chest/Breast breast and axillae palpation Overall: axillae non- tender 08/04/2015 None Full Exam - General Chest/Breast breast and axillae palpation Overall: no nipple discharge 08/04/2015 None Full Exam - General Musculoskeletal gait and station Overall: normal gait 08/04/2015 None Full Exam - General Musculoskeletal gait and station Overall: normal station 08/04/2015 None Full Exam - General Genitourinary labia and vagina Labia: no lesions present 08/04/2015 None Full Exam - General Genitourinary cervix Overall: no discharge 08/04/2015 None Full Exam - General Genitourinary uterus Overall: normal size 08/04/2015 None Full Exam - General Genitourinary adnexa/parametria Overall: no tenderness 08/04/2015 None Full Exam - General Abdomen rectal exam Overall: good sphincter tone, no mas ses, no lesions 08/04/2015 None Full Exam - General Abdomen stool sample obtained Overall: normal appearance 08/04/2015 None Full Exam - General Abdomen stool sample obtained Overall: occult blood negative 08/04/2015 None Full Exam - General Constitutional general appearance Overall: well nourished 05/27/2015 None Full Exam - General Constitutional general appearance Overall: well developed 05/27/2015 None Full Exam - General Constitutional general appearance Overall: in no acute distress 05/27/2015 None Full Exam - General Neurologic mental status Overall: alert 6 None Full Exam - General Neurologic mental status Overall: oriented 05/27/2015 None Full Exam - General Psychiatric mood and affect Overall: normal mood and affect 05/27/2015 None Full Exam - General Abdomen abdominal exam Overall: no masses 05/27/2015 None Full Exam - General Abdomen abdominal exam Overall: normal bowel sounds 05/27/2015 None Full Exam - General Abdomen abdominal exam Overall: soft 05/27/2015 None Full Exam - General Abdomen abdominal exam Left lower quadrant: tender to palpa tion 05/27/2015 None Full Exam - General Abdomen abdominal exam Right lower quadrant: tender to palp ation 05/27/2015 None Full Exam - General Cardiovascular auscultation of heart Overall: regular rate 05/27/2015 None Full Exam - General Cardiovascular auscultation of heart Overall: normal heart sounds 05/27/2015 None Full Exam - General Respiratory auscultation Overall: breath sounds clear bilater ally 05/27/2015 None Full Exam - General Musculoskeletal spine, ribs and pelvis Spine: tender @ lumbar spin e 05/27/2015 right lower Full Exam - General Musculoskeletal spine, ribs and pelvis Palpation - right hip: tender at greater trochanter 05/27/2015 None Full Exam - General Constitutional general appearance Overall: well nourished 03/10/2015 None Full Exam - General Constitutional general appearance Overall: well developed 03/10/2015 None Full Exam - General Constitutional general appearance Overall: in no acute distress 03/10/2015 None Full Exam - General Neurologic mental status Overall: alert 5 None Full Exam - General Neurologic mental status Overall: oriented 03/10/2015 None Full Exam - General Psychiatric mood and affect Overall: normal mood and affect 03/10/2015 None Full Exam - General Respiratory auscultation Overall: breath sounds clear bilater ally 03/10/2015 None Full Exam - General Cardiovascular auscultation of heart Overall: regular rate 03/10/2015 None Full Exam - General Cardiovascular auscultation of heart Overall: normal heart sounds 03/10/2015 None Full Exam - General Cardiovascular auscultation of heart S3 (ventricular gallop): present 03/10/2015 None Full Exam - General Cardiovascular auscultation of heart Murmur: previously known murmur unchanged 03/10/2015 None Full Exam - General Neck inspection of neck Overall: normal size 03/10/2015 None Full Exam - General Neck inspection of neck Overall: no masses 03/10/2015 None Full Exam - General Eyes pupils and irises Overall: pupils equal, round, reacti ve to light and accomodation 03/10/2015 None Full Exam - General Ears/Nose/Throat otoscopic exam Overall: external auditory canals clear 03/10/2015 None Full Exam - General Ears/Nose/Throat otoscopic exam Overall: tympanic membranes clear 03/10/2015 None Full Exam - General Ears/Nose/Throat internal nose Overall: bilateral nasal cavities clear 03/10/2015 None Full Exam - General Ears/Nose/Throat oral cavity/pharynx/larynx Overall: oral mucosa clear 03/10/2015 None Full Exam - General Abdomen abdominal exam Overall: no masses 03/10/2015 None Full Exam - General Abdomen abdominal exam Overall: no tenderness 03/10/2015 None Full Exam - General Abdomen abdominal exam Overall: normal bowel sounds 03/10/2015 None Full Exam - General Abdomen abdominal exam Overall: soft 03/10/2015 None Full Exam - General Musculoskeletal gait and station Overall: normal gait 03/10/2015 None Full Exam - General Musculoskeletal gait and station Overall: normal station 03/10/2015 None Full Exam - General Musculoskeletal spine, ribs and pelvis Overall: good posture 03/10/2015 None Full Exam - General Musculoskeletal spine, ribs and pelvis Overall: ribs benign 03/10/2015 None Full Exam - General Musculoskeletal spine, ribs and pelvis Overall: spine benign 03/10/2015 None Full Exam - General Neurologic cranial nerves Overall: cranial nerves 1-12 intact 03/10/2015 None Full Exam - General Neurologic gait Overall: no ataxia, no unsteadiness 03/10/2015 None Full Exam - General Neurologic coordination Overall: no dysdiadochokinesis, no d ysmetria 03/10/2015 None Full Exam - General Neurologic coordination Overall: no tremors 03/10/2015 None Full Exam - General Neurologic deep tendon reflexes Overall: deep tendon reflexes intact 03/10/2015 None Full Exam - General Neurologic motor Overall: normal bulk, tone 03/10/2015 None Full Exam - General Constitutional general appearance Overall: well nourished 06/30/2014 None Full Exam - General Constitutional general appearance Overall: well developed 06/30/2014 None Full Exam - General Constitutional general appearance Overall: in no acute distress 06/30/2014 None Full Exam - General Neurologic mental status Overall: alert 5 None Full Exam - General Neurologic mental status Overall: oriented 06/30/2014 None Full Exam - General Psychiatric mood and affect Overall: normal mood and affect 06/30/2014 None Full Exam - General Respiratory auscultation Overall: breath sounds clear bilater ally 06/30/2014 None Full Exam - General Cardiovascular auscultation of heart Overall: regular rate 06/30/2014 None Full Exam - General Cardiovascular auscultation of heart Overall: normal heart sounds 06/30/2014 None Full Exam - General Cardiovascular auscultation of heart S3 (ventricular gallop): present 06/30/2014 None Full Exam - General Cardiovascular auscultation of heart Murmur: previously known murmur unchanged 06/30/2014 None Full Exam - General Cardiovascular extremities Overall: no clubbing 06/30/2014 None Full Exam - General Cardiovascular extremities Overall: No edema 06/30/2014 None Full Exam - General Cardiovascular extremities Overall: No cyanosis 06/30/2014 None Full Exam - General Abdomen abdominal exam Overall: no masses 06/30/2014 None Full Exam - General Abdomen abdominal exam Overall: no tenderness 06/30/2014 None Full Exam - General Abdomen abdominal exam Overall: normal bowel sounds 06/30/2014 None Full Exam - General Abdomen abdominal exam Overall: soft 06/30/2014 None Full Exam - General Musculoskeletal gait and station Overall: normal gait 06/30/2014 None Full Exam - General Musculoskeletal gait and station Overall: normal station 06/30/2014 None Full Exam - General Ears/Nose/Throat otoscopic exam Overall: external auditory canals clear 06/30/2014 None Full Exam - General Ears/Nose/Throat otoscopic exam Overall: tympanic membranes clear 06/30/2014 None Full Exam - General Ears/Nose/Throat internal nose Overall: bilateral nasal cavities clear 06/30/2014 None Full Exam - General Ears/Nose/Throat oral cavity/pharynx/larynx Overall: oral mucosa clear 06/30/2014 None Full Exam - General Musculoskeletal digits and nails Nails: discoloration 06/30/2014 with thickening to bilate ral 2nd toes Full Exam - General Constitutional general appearance Overall: well nourished 08/12/2013 None Full Exam - General Constitutional general appearance Overall: well developed 08/12/2013 None Full Exam - General Constitutional general appearance Overall: in no acute distress 08/12/2013 None Full Exam - General Respiratory auscultation Overall: breath sounds clear bilater ally 08/12/2013 None Full Exam - General Cardiovascular auscultation of heart Overall: regular rate 08/12/2013 None Full Exam - General Cardiovascular auscultation of heart Overall: normal heart sounds 08/12/2013 None Full Exam - General Cardiovascular auscultation of heart Overall: no murmurs 08/12/2013 None Full Exam - General Neurologic mental status Overall: alert 4 None Full Exam - General Neurologic mental status Overall: oriented 08/12/2013 None Full Exam - General Psychiatric mood and affect Overall: normal mood and affect 08/12/2013 None Full Exam - General Ears/Nose/Throat otoscopic exam Overall: external auditory canals clear 08/12/2013 None Full Exam - General Ears/Nose/Throat otoscopic exam Overall: tympanic membranes clear 08/12/2013 None Full Exam - General Ears/Nose/Throat internal nose Overall: bilateral nasal cavities clear 08/12/2013 None Full Exam - General Ears/Nose/Throat oral cavity/pharynx/larynx Oropharynx: erythema 08/12/2013 None Full Exam - General Integument inspection of skin Location: diffuse 08/12/2013 bilateral groin/upper thighs with scalin g and erythemic macules in circular type rings Full Exam - General Constitutional general appearance Overall: well developed 05/31/2013 None Full Exam - General Constitutional general appearance Overall: in no acute distress 05/31/2013 None Full Exam - General Constitutional general appearance Nourishment: obese 05/31/2013 None Full Exam - General Ears/Nose/Throat external ear Overall: normal appearance 05/31/2013 None Full Exam - General Respiratory auscultation Left upper lung field: crackles 05/31/2013 coarse Full Exam - General Respiratory auscultation Right upper lung field: crackles 05/31/2013 coarse Full Exam - General Respiratory auscultation Right middle lung field: crackles 05/31/2013 coarse Full Exam - General Respiratory auscultation Left lower lung field: a normal exam 05/31/2013 None Full Exam - General Respiratory auscultation Right lower lung field: diminished 05/31/2013 None Full Exam - General Cardiovascular auscultation of heart Overall: regular rate 05/31/2013 None Full Exam - General Cardiovascular auscultation of heart Overall: normal heart sounds 05/31/2013 None Full Exam - General Cardiovascular auscultation of heart Overall: no murmurs 05/31/2013 None Full Exam - General Psychiatric orientation/consciousness Overall: oriented to person, place and time 05/31/2013 None Full Exam - General Constitutional general appearance Nourishment: obese 05/27/2013 None Full Exam - General Constitutional general appearance Overall: well developed 05/27/2013 None Full Exam - General Constitutional general appearance Overall: in no acute distress 05/27/2013 None Full Exam - General Ears/Nose/Throat otoscopic exam Left tympanic membrane: effusion 05/27/2013 None Full Exam - General Ears/Nose/Throat otoscopic exam Right tympanic membrane: a normal exam 05/27/2013 None Full Exam - General Ears/Nose/Throat oral cavity/pharynx/larynx Oropharynx: erythema 05/27/2013 None Full Exam - General Respiratory auscultation Overall: breath sounds clear bilater ally 05/27/2013 None Full Exam - General Cardiovascular auscultation of heart Overall: regular rate 05/27/2013 None Full Exam - General Cardiovascular auscultation of heart Overall: normal heart sounds 05/27/2013 None Full Exam - General Cardiovascular auscultation of heart Overall: no murmurs 05/27/2013 None Full Exam - General Psychiatric orientation/consciousness Overall: oriented to person, place and time 05/27/2013 None Full Exam - General Constitutional general appearance Overall: well nourished 02/26/2013 None Full Exam - General Constitutional general appearance Overall: well developed 02/26/2013 None Full Exam - General Constitutional general appearance Overall: in no acute distress 02/26/2013 None Full Exam - General Neurologic mental status Overall: alert 3 None Full Exam - General Neurologic mental status Overall: oriented 02/26/2013 None Full Exam - General Psychiatric mood and affect Overall: normal mood and affect 02/26/2013 None Full Exam - General Respiratory auscultation Overall: breath sounds clear bilater ally 02/26/2013 None Full Exam - General Cardiovascular auscultation of heart Overall: regular rate 02/26/2013 None Full Exam - General Cardiovascular auscultation of heart Overall: normal heart sounds 02/26/2013 None Full Exam - General Cardiovascular auscultation of heart S3 (ventricular gallop): present 02/26/2013 None Full Exam - General Integument inspection of skin Location: inguinal area 02/26/2013 bilateral inner thighs wi th erythemic scaling and hives Full Exam - General Constitutional general appearance Overall: well nourished 11/29/2012 None Full Exam - General Constitutional general appearance Overall: well developed 11/29/2012 None Full Exam - General Constitutional general appearance Overall: in no acute distress 11/29/2012 None Full Exam - General Ears/Nose/Throat otoscopic exam Overall: external auditory canals clear 11/29/2012 None Full Exam - General Ears/Nose/Throat otoscopic exam Overall: tympanic membranes clear 11/29/2012 None Full Exam - General Ears/Nose/Throat lips/teeth/gingiva Overall: benign lips 11/29/2012 None Full Exam - General Ears/Nose/Throat lips/teeth/gingiva Overall: normal dentition 11/29/2012 None Full Exam - General Ears/Nose/Throat lips/teeth/gingiva Overall: benign gingiva 11/29/2012 None Full Exam - General Ears/Nose/Throat oral cavity/pharynx/larynx Overall: oral mucosa clear 11/29/2012 None Full Exam - General Ears/Nose/Throat oral cavity/pharynx/larynx Overall: oropharyngeal mucosa clear 11/29/2012 None Full Exam - General Respiratory auscultation Overall: breath sounds clear bilater ally 11/29/2012 None Full Exam - General Respiratory respiratory effort/rhythm Overall: no retractions 11/29/2012 None Full Exam - General Respiratory respiratory effort/rhythm Overall: normal rate 11/29/2012 None Full Exam - General Cardiovascular auscultation of heart Overall: regular rate 11/29/2012 None Full Exam - General Cardiovascular auscultation of heart Overall: normal heart sounds 11/29/2012 None Full Exam - General Lymphatic neck nodes Overall: anterior cervical chain kevin ign 11/29/2012 None Full Exam - General Lymphatic neck nodes Overall: posterior cervical chain be nign 11/29/2012 None Full Exam - General Integument inspection of skin Dermatitis: erythema 11/29/2012 red lines of inflammation on inner thigh s and inguinal folds. Red, beefy appearance. No broken skin or oozing. Full Exam - General Psychiatric orientation/consciousness Overall: oriented to person, place and time 11/29/2012 None Full Exam - General Constitutional general appearance Nourishment: obese 11/12/2012 None Full Exam - General Constitutional general appearance Overall: well developed 11/12/2012 None Full Exam - General Constitutional general appearance Overall: in no acute distress 11/12/2012 None Full Exam - General Ears/Nose/Throat otoscopic exam Overall: external auditory canals clear 11/12/2012 None Full Exam - General Ears/Nose/Throat otoscopic exam Right tympanic membrane: loss of landmarks 11/12/2012 white tympanic membrane Full Exam - General Ears/Nose/Throat otoscopic exam Right tympanic membrane: bulging 11/12/2012 mild Full Exam - General Ears/Nose/Throat oral cavity/pharynx/larynx Oropharynx: erythema 11/12/2012 None Full Exam - General Respiratory auscultation Overall: breath sounds clear bilater ally 11/12/2012 None Full Exam - General Respiratory respiratory effort/rhythm Overall: no retractions 11/12/2012 None Full Exam - General Respiratory respiratory effort/rhythm Overall: normal rate 11/12/2012 frequent cough noted. Full Exam - General Cardiovascular auscultation of heart Overall: regular rate 11/12/2012 None Full Exam - General Cardiovascular auscultation of heart Overall: normal heart sounds 11/12/2012 None Full Exam - General Lymphatic neck nodes Overall: anterior cervical chain kevin ign 11/12/2012 None Full Exam - General Lymphatic neck nodes Overall: posterior cervical chain be nign 11/12/2012 None Full Exam - General Psychiatric orientation/consciousness Overall: oriented to person, place and time 11/12/2012 None Full Exam - General Constitutional general appearance Nourishment: obese 07/30/2012 None Full Exam - General Constitutional general appearance Overall: well developed 07/30/2012 None Full Exam - General Constitutional general appearance Overall: in no acute distress 07/30/2012 None Full Exam - General Ears/Nose/Throat otoscopic exam Right tympanic membrane: tympanosclerosis 07/30/2012 None Full Exam - General Ears/Nose/Throat otoscopic exam Overall: external auditory canals clear 07/30/2012 None Full Exam - General Ears/Nose/Throat oral cavity/pharynx/larynx Oropharynx: erythema 07/30/2012 None Full Exam - General Respiratory auscultation Overall: breath sounds clear bilater ally 07/30/2012 None Full Exam - General Respiratory respiratory effort/rhythm Overall: no retractions 07/30/2012 None Full Exam - General Respiratory respiratory effort/rhythm Overall: normal rate 07/30/2012 frequent cough noted Full Exam - General Cardiovascular auscultation of heart Overall: regular rate 07/30/2012 None Full Exam - General Cardiovascular auscultation of heart Overall: normal heart sounds 07/30/2012 None Full Exam - General Lymphatic neck nodes Overall: anterior cervical chain kevin ign 07/30/2012 None Full Exam - General Lymphatic neck nodes Overall: posterior cervical chain be nign 07/30/2012 None Full Exam - General Psychiatric orientation/consciousness Overall: oriented to person, place and time 07/30/2012 None Full Exam - General Constitutional general appearance Overall: well developed 06/04/2012 None Full Exam - General Constitutional general appearance Overall: in no acute distress 06/04/2012 None Full Exam - General Constitutional general appearance Nourishment: obese 06/04/2012 None Full Exam - General Ears/Nose/Throat otoscopic exam Overall: external auditory canals clear 06/04/2012 None Full Exam - General Ears/Nose/Throat otoscopic exam Overall: tympanic membranes clear 06/04/2012 None Full Exam - General Ears/Nose/Throat oral cavity/pharynx/larynx Oropharynx: a normal exam 06/04/2012 None Full Exam - General Respiratory auscultation Overall: breath sounds clear bilater ally 06/04/2012 None Full Exam - General Respiratory respiratory effort/rhythm Overall: no retractions 06/04/2012 None Full Exam - General Respiratory respiratory effort/rhythm Overall: normal rate 06/04/2012 None Full Exam - General Cardiovascular auscultation of heart Overall: regular rate 06/04/2012 None Full Exam - General Cardiovascular auscultation of heart Overall: normal heart sounds 06/04/2012 None Full Exam - General Integument inspection of skin Rash/Lesions: patch 06/04/2012 large patch of dark brown skin between l egs and between buttocks Full Exam - General Psychiatric orientation/consciousness Overall: oriented to person, place and time 06/04/2012 None Full Exam - General Constitutional general appearance Overall: in no acute distress 12/21/2011 None Full Exam - General Constitutional general appearance Overall: well developed 12/21/2011 None Full Exam - General Constitutional general appearance Overall: well nourished 12/21/2011 None Full Exam - General Neurologic mental status Overall: alert 2 None Full Exam - General Neurologic mental status Overall: oriented 12/21/2011 None Full Exam - General Psychiatric mood and affect Overall: normal mood and affect 12/21/2011 None Full Exam - General Respiratory auscultation Overall: breath sounds clear bilater ally 12/21/2011 None Full Exam - General Cardiovascular auscultation of heart Overall: regular rate 12/21/2011 None Full Exam - General Cardiovascular auscultation of heart Overall: normal heart sounds 12/21/2011 None Full Exam - General Cardiovascular auscultation of heart Overall: no murmurs 12/21/2011 None Full Exam - General Abdomen abdominal exam Overall: no masses 12/21/2011 None Full Exam - General Abdomen abdominal exam Overall: no tenderness 12/21/2011 None Full Exam - General Abdomen abdominal exam Overall: normal bowel sounds 12/21/2011 None Full Exam - General Abdomen abdominal exam Overall: soft 12/21/2011 None Full Exam - General Chest/Breast breast and axillae palpation Overall: breasts non- tender 12/21/2011 None Full Exam - General Chest/Breast breast and axillae palpation Overall: no masses 12/21/2011 None Full Exam - General Chest/Breast breast and axillae palpation Overall: axillae non- tender 12/21/2011 None Full Exam - General Chest/Breast breast and axillae palpation Overall: no nipple discharge 12/21/2011 None Full Exam - General Genitourinary uterus Overall: normal size 12/21/2011 None Full Exam - General Genitourinary cervix Overall: no discharge 12/21/2011 None Full Exam - General Genitourinary labia and vagina Overall: normal hair distribution 12/21/2011 None Full Exam - General Genitourinary labia and vagina Overall: no lesions 12/21/2011 None Full Exam - General Genitourinary adnexa/parametria Overall: no tenderness 12/21/2011 None Full Exam - General Respiratory auscultation Overall: breath sounds clear bilater ally 10/07/2011 None Full Exam - General Respiratory respiratory effort/rhythm Overall: no retractions 10/07/2011 None Full Exam - General Respiratory respiratory effort/rhythm Overall: normal rate 10/07/2011 None Full Exam - General Constitutional general appearance Overall: well developed 10/07/2011 None Full Exam - General Constitutional general appearance Nourishment: obese 10/07/2011 None Full Exam - General Constitutional general appearance Overall: in no acute distress 10/07/2011 None Full Exam - General Ears/Nose/Throat otoscopic exam Overall: external auditory canals clear 10/07/2011 None Full Exam - General Ears/Nose/Throat otoscopic exam Overall: tympanic membranes clear 10/07/2011 None Full Exam - General Ears/Nose/Throat lips/teeth/gingiva Overall: benign lips 10/07/2011 None Full Exam - General Ears/Nose/Throat lips/teeth/gingiva Overall: normal dentition 10/07/2011 None Full Exam - General Ears/Nose/Throat lips/teeth/gingiva Overall: benign gingiva 10/07/2011 None Full Exam - General Ears/Nose/Throat oral cavity/pharynx/larynx Overall: oropharyngeal mucosa clear 10/07/2011 None Full Exam - General Cardiovascular auscultation of heart Overall: regular rate 10/07/2011 None Full Exam - General Cardiovascular auscultation of heart Overall: normal heart sounds 10/07/2011 None Full Exam - General Abdomen abdominal exam Overall: no tenderness 10/07/2011 None Full Exam - General Abdomen abdominal exam Overall: soft 10/07/2011 None Full Exam - General Abdomen abdominal exam Overall: no masses 10/07/2011 None Full Exam - General Abdomen abdominal exam Overall: normal bowel sounds 10/07/2011 None Full Exam - General Genitourinary labia and vagina Overall: normal hair distribution 10/07/2011 None Full Exam - General Genitourinary labia and vagina Overall: no lesions 10/07/2011 None Full Exam - General Abdomen rectal exam Inspection: hemorrhoid 10/07/2011 small rectal hemorrhoid present at sphin cter Full Exam - General Integument inspection of skin Rash/Lesions: papule 10/07/2011 fine papillary rash Full Exam - General Psychiatric orientation/consciousness Overall: oriented to person, place and time 10/07/2011 None Full Exam - General Constitutional general appearance Overall: well nourished 09/05/2011 None Full Exam - General Constitutional general appearance Overall: well developed 09/05/2011 None Full Exam - General Constitutional general appearance Overall: in no acute distress 09/05/2011 None Full Exam - General Neurologic mental status Overall: alert 2 None Full Exam - General Neurologic mental status Overall: oriented 09/05/2011 None Full Exam - General Psychiatric mood and affect Overall: normal mood and affect 09/05/2011 None Full Exam - General Respiratory auscultation Right upper lung field: a normal exa m 09/05/2011 None Full Exam - General Respiratory auscultation Right middle lung field: a normal ex am 09/05/2011 None Full Exam - General Respiratory auscultation Right lower lung field: a normal exa m 09/05/2011 None Full Exam - General Respiratory auscultation Left lower lung field: a normal exam 09/05/2011 None Full Exam - General Respiratory auscultation Overall: breath sounds clear bilater ally 09/05/2011 None Full Exam - General Respiratory auscultation Left upper lung field: a normal exam 09/05/2011 None Full Exam - General Respiratory auscultation Diffuse: a normal exam 09/05/2011 None Full Exam - General Cardiovascular auscultation of heart Overall: no murmurs 09/05/2011 None Full Exam - General Cardiovascular auscultation of heart Overall: regular rate 09/05/2011 None Full Exam - General Cardiovascular auscultation of heart Overall: normal heart sounds 09/05/2011 None Full Exam - General Cardiovascular auscultation of heart S1: a normal exam 09/05/2011 None Full Exam - General Cardiovascular auscultation of heart S2: a normal exam 09/05/2011 None Full Exam - General Cardiovascular auscultation of heart Rhythm: regular rhythm 09/05/2011 None Full Exam - General Cardiovascular auscultation of heart Rate: regular rate 09/05/2011 None Full Exam - General Cardiovascular auscultation of heart S3 (ventricular gallop): present 09/05/2011 None Full Exam - General Abdomen abdominal exam Overall: no masses 09/05/2011 None Full Exam - General Abdomen abdominal exam Overall: no tenderness 09/05/2011 None Full Exam - General Abdomen abdominal exam Overall: normal bowel sounds 09/05/2011 None Full Exam - General Abdomen abdominal exam Overall: soft 09/05/2011 None Full Exam - General Ears/Nose/Throat otoscopic exam Overall: external auditory canals clear 09/05/2011 None Full Exam - General Ears/Nose/Throat otoscopic exam Overall: tympanic membranes clear 09/05/2011 None Full Exam - General Ears/Nose/Throat internal nose Turbinates: hypertrophy 09/05/2011 None Full Exam - General Ears/Nose/Throat oral cavity/pharynx/larynx Overall: oral mucosa clear 09/05/2011 None Full Exam - General Neck inspection of neck Overall: normal size 09/05/2011 None Full Exam - General Neck inspection of neck Overall: no masses 09/05/2011 None Full Exam - General Integument inspection of skin Overall: no rash, lesions 09/05/2011 None Full Exam - General Musculoskeletal gait and station Overall: normal gait 09/05/2011 None Full Exam - General Musculoskeletal gait and station Overall: normal station 09/05/2011 None Full Exam - General Musculoskeletal spine, ribs and pelvis Overall: good posture 09/05/2011 None Full Exam - General Constitutional general appearance Overall: well nourished 04/28/2011 None Full Exam - General Constitutional general appearance Overall: well developed 04/28/2011 None Full Exam - General Constitutional general appearance Overall: in no acute distress 04/28/2011 None Full Exam - General Ears/Nose/Throat otoscopic exam Right tympanic membrane: a normal exam 04/28/2011 cloudy tympanic membrane Full Exam - General Ears/Nose/Throat otoscopic exam Overall: external auditory canals clear 04/28/2011 None Full Exam - General Ears/Nose/Throat lips/teeth/gingiva Overall: benign lips 04/28/2011 None Full Exam - General Ears/Nose/Throat lips/teeth/gingiva Overall: normal dentition 04/28/2011 None Full Exam - General Ears/Nose/Throat lips/teeth/gingiva Overall: benign gingiva 04/28/2011 None Full Exam - General Ears/Nose/Throat oral cavity/pharynx/larynx Oropharynx: erythema 04/28/2011 None Full Exam - General Respiratory auscultation Overall: breath sounds clear bilater ally 04/28/2011 None Full Exam - General Respiratory respiratory effort/rhythm Overall: no retractions 04/28/2011 None Full Exam - General Respiratory respiratory effort/rhythm Overall: normal rate 04/28/2011 frequent cough noted Full Exam - General Cardiovascular auscultation of heart Overall: regular rate 04/28/2011 None Full Exam - General Cardiovascular auscultation of heart Overall: normal heart sounds 04/28/2011 None Full Exam - General Lymphatic neck nodes Overall: anterior cervical chain kevin ign 04/28/2011 None Full Exam - General Lymphatic neck nodes Overall: posterior cervical chain be nign 04/28/2011 None Full Exam - General Psychiatric orientation/consciousness Overall: oriented to person, place and time 04/28/2011 None Full Exam - General Constitutional general appearance Overall: in no acute distress 04/13/2011 None Full Exam - General Constitutional general appearance Overall: well developed 04/13/2011 None Full Exam - General Constitutional general appearance Overall: well nourished 04/13/2011 None Full Exam - General Ears/Nose/Throat internal nose Turbinates: hypertrophy 04/13/2011 None Full Exam - General Ears/Nose/Throat internal nose Septal deviation: right 04/13/2011 minimal Full Exam - General Ears/Nose/Throat external nose Dorsum: dorsal hump 04/13/2011 with erythema Full Exam - General Respiratory auscultation Right upper lung field: a normal exa m 04/13/2011 None Full Exam - General Respiratory auscultation Right middle lung field: a normal ex am 04/13/2011 None Full Exam - General Respiratory auscultation Right lower lung field: a normal exa m 04/13/2011 None Full Exam - General Respiratory auscultation Left lower lung field: a normal exam 04/13/2011 None Full Exam - General Respiratory auscultation Overall: breath sounds clear bilater ally 04/13/2011 None Full Exam - General Respiratory auscultation Left upper lung field: a normal exam 04/13/2011 None Full Exam - General Respiratory auscultation Diffuse: a normal exam 04/13/2011 None Full Exam - General Cardiovascular auscultation of heart Overall: no murmurs 04/13/2011 None Full Exam - General Cardiovascular auscultation of heart Overall: regular rate 04/13/2011 None Full Exam - General Cardiovascular auscultation of heart Overall: normal heart sounds 04/13/2011 None Full Exam - General Cardiovascular auscultation of heart S1: a normal exam 04/13/2011 None Full Exam - General Cardiovascular auscultation of heart S2: a normal exam 04/13/2011 None Full Exam - General Cardiovascular auscultation of heart Rhythm: regular rhythm 04/13/2011 None Full Exam - General Cardiovascular auscultation of heart Rate: regular rate 04/13/2011 None Full Exam - General Cardiovascular auscultation of heart S3 (ventricular gallop): present 04/13/2011 None Full Exam - General Neurologic mental status Overall: alert 1 None Full Exam - General Neurologic mental status Overall: oriented 04/13/2011 None Full Exam - General Psychiatric mood and affect Overall: normal mood and affect 04/13/2011 None Full Exam - General Musculoskeletal digits and nails Right PIPs: fourth 04/13/2011 None Full Exam - General Musculoskeletal digits and nails Right PIPs: tender 04/13/2011 None Full Exam - General Constitutional general appearance Overall: well developed 02/04/2011 None Full Exam - General Constitutional general appearance Overall: well nourished 02/04/2011 None Full Exam - General Constitutional general appearance Overall: in no acute distress 02/04/2011 None Full Exam - General Ears/Nose/Throat otoscopic exam Overall: external auditory canals clear 02/04/2011 None Full Exam - General Ears/Nose/Throat otoscopic exam Overall: tympanic membranes clear 02/04/2011 None Full Exam - General Ears/Nose/Throat lips/teeth/gingiva Overall: benign lips 02/04/2011 None Full Exam - General Ears/Nose/Throat lips/teeth/gingiva Overall: normal dentition 02/04/2011 None Full Exam - General Ears/Nose/Throat lips/teeth/gingiva Overall: benign gingiva 02/04/2011 None Full Exam - General Ears/Nose/Throat oral cavity/pharynx/larynx Oropharynx: erythema 02/04/2011 None Full Exam - General Respiratory auscultation Overall: breath sounds clear bilater ally 02/04/2011 None Full Exam - General Respiratory respiratory effort/rhythm Overall: no retractions 02/04/2011 None Full Exam - General Respiratory respiratory effort/rhythm Overall: normal rate 02/04/2011 None Full Exam - General Lymphatic neck nodes Overall: anterior cervical chain kevin ign 02/04/2011 None Full Exam - General Lymphatic neck nodes Overall: posterior cervical chain be nign 02/04/2011 None Full Exam - General Integument inspection of skin Overall: no rash, lesions 02/04/2011 None Full Exam - General Constitutional general appearance Nourishment: well nourished 12/06/2010 None Full Exam - General Constitutional general appearance Nourishment: obese 12/06/2010 None Full Exam - General Constitutional general appearance Overall: well nourished 12/06/2010 None Full Exam - General Constitutional general appearance Overall: well developed 12/06/2010 None Full Exam - General Constitutional general appearance Overall: in no acute distress 12/06/2010 None Full Exam - General Eyes conjunctiva/eyelids Overall: conjunctiva clear 12/06/2010 None Full Exam - General Eyes conjunctiva/eyelids Overall: cornea clear 12/06/2010 None Full Exam - General Eyes conjunctiva/eyelids Overall: eyelids normal 12/06/2010 None Full Exam - General Eyes pupils and irises Overall: pupils equal, round, reacti ve to light and accomodation 12/06/2010 None Full Exam - General Ears/Nose/Throat external ear Overall: normal appearance 12/06/2010 None Full Exam - General Ears/Nose/Throat external ear Overall: no masses 12/06/2010 None Full Exam - General Neck thyroid Overall: normal size None Full Exam - General Neck thyroid Overall: normal consistency 12/06/2010 None Full Exam - General Neck thyroid Overall: nontender 12/06 None Full Exam - General Respiratory auscultation Overall: breath sounds clear bilater ally 12/06/2010 None Full Exam - General Respiratory respiratory effort/rhythm Overall: no retractions 12/06/2010 None Full Exam - General Respiratory respiratory effort/rhythm Overall: normal rate 12/06/2010 None Full Exam - General Cardiovascular auscultation of heart Overall: regular rate 12/06/2010 None Full Exam - General Cardiovascular auscultation of heart Overall: normal heart sounds 12/06/2010 None Full Exam - General Chest/Breast breast and axillae palpation Overall: breasts non- tender 12/06/2010 None Full Exam - General Chest/Breast breast and axillae palpation Overall: no masses 12/06/2010 None Full Exam - General Chest/Breast breast and axillae palpation Overall: axillae non- tender 12/06/2010 None Full Exam - General Chest/Breast breast and axillae palpation Overall: no nipple discharge 12/06/2010 None Full Exam - General Chest/Breast breast/chest inspection Overall: breasts to symmetric and without lesions 12/06/2010 None Full Exam - General Chest/Breast breast/chest inspection Overall: normal chest shape 12/06/2010 None Full Exam - General Abdomen abdominal exam Overall: no tenderness 12/06/2010 None Full Exam - General Abdomen abdominal exam Overall: soft 12/06/2010 None Full Exam - General Abdomen abdominal exam Overall: no masses 12/06/2010 None Full Exam - General Abdomen abdominal exam Overall: normal bowel sounds 12/06/2010 None Full Exam - General Abdomen rectal exam Overall: good sphincter tone, no mas ses, no lesions 12/06/2010 None Full Exam - General Abdomen stool sample obtained Overall: normal appearance 12/06/2010 None Full Exam - General Abdomen stool sample obtained Overall: occult blood negative 12/06/2010 None Full Exam - General Genitourinary cervix Overall: no discharge 12/06/2010 None Full Exam - General Genitourinary cervix Motion tenderness: absent 12/06/2010 None Full Exam - General Genitourinary labia and vagina Overall: normal hair distribution 12/06/2010 None Full Exam - General Genitourinary labia and vagina Overall: no lesions 12/06/2010 None Full Exam - General Genitourinary adnexa/parametria Overall: no tenderness 12/06/2010 None Full Exam - General Musculoskeletal head and neck Overall: head atraumatic 12/06/2010 None Full Exam - General Musculoskeletal head and neck Overall: cervical spine benign 12/06/2010 None Full Exam - General Musculoskeletal right lower extremity Overall: right knee benign 12/06/2010 None Full Exam - General Musculoskeletal right lower extremity Overall: right ankle benign 12/06/2010 None Full Exam - General Musculoskeletal right lower extremity Overall: right foot benign 12/06/2010 None Full Exam - General Musculoskeletal right lower extremity Overall: full strength in RLE 12/06/2010 None Full Exam - General Musculoskeletal right lower extremity Overall: normal RLE bulk and tone 12/06/2010 None Full Exam - General Musculoskeletal left lower extremity Overall: left knee benign 12/06/2010 None Full Exam - General Musculoskeletal left lower extremity Overall: left ankle benign 12/06/2010 None Full Exam - General Musculoskeletal left lower extremity Overall: left foot benign 12/06/2010 None Full Exam - General Musculoskeletal left lower extremity Overall: full strength in LLE 12/06/2010 None Full Exam - General Musculoskeletal left lower extremity Overall: normal LLE bulk and tone 12/06/2010 None Full Exam - General Psychiatric orientation/consciousness Overall: oriented to person, place and time 12/06/2010 None Full Exam - General Integument inspection of skin Dermatitis: dryness/flaking 12/06/[address] eyebrow is dr y, flaking and mildly red-discussed follow up as necessary. Full Exam - General Respiratory auscultation Right upper lung field: a normal exa m 04/14/2010 None Full Exam - General Respiratory auscultation Right middle lung field: a normal ex am 04/14/2010 None Full Exam - General Respiratory auscultation Right lower lung field: a normal exa m 04/14/2010 None Full Exam - General Cardiovascular auscultation of heart Overall: regular rate 04/14/2010 None Full Exam - General Cardiovascular auscultation of heart Overall: normal heart sounds 04/14/2010 None Full Exam - General Cardiovascular auscultation of heart Overall: no murmurs 04/14/2010 None Full Exam - General Cardiovascular auscultation of heart Rate: regular rate 04/14/2010 None Full Exam - General Cardiovascular auscultation of heart Rhythm: regular rhythm 04/14/2010 None Full Exam - General Cardiovascular auscultation of heart S1: a normal exam 04/14/2010 None Full Exam - General Cardiovascular auscultation of heart S2: a normal exam 04/14/2010 None Full Exam - General Cardiovascular auscultation of heart S3 (ventricular gallop): present 04/14/2010 None Full Exam - General Cardiovascular extremities Overall: no clubbing 04/14/2010 None Full Exam - General Cardiovascular extremities Overall: No edema 04/14/2010 None Full Exam - General Cardiovascular extremities Overall: No cyanosis 04/14/2010 None Full Exam - General Constitutional general appearance Overall: well nourished 04/14/2010 None Full Exam - General Constitutional general appearance Overall: well developed 04/14/2010 None Full Exam - General Constitutional general appearance Overall: in no acute distress 04/14/2010 None Full Exam - General Neurologic mental status Overall: alert 0 None Full Exam - General Neurologic mental status Overall: oriented 04/14/2010 None Full Exam - General Psychiatric mood and affect Overall: normal mood and affect 04/14/2010 None Full Exam - General Respiratory auscultation Overall: breath sounds clear bilater ally 04/14/2010 None Full Exam - General Respiratory auscultation Diffuse: a normal exam 04/14/2010 None Full Exam - General Respiratory auscultation Left upper lung field: a normal exam 04/14/2010 None Full Exam - General Respiratory auscultation Left lower lung field: a normal exam 04/14/2010 None Full Exam - General Abdomen abdominal exam Overall: no masses 04/14/2010 None Full Exam - General Abdomen abdominal exam Overall: normal bowel sounds 04/14/2010 None Full Exam - General Abdomen abdominal exam Overall: soft 04/14/2010 None Full Exam - General Abdomen abdominal exam Left lower quadrant: tender to palpa tion 04/14/2010 None Full Exam - General Ears/Nose/Throat otoscopic exam Overall: external auditory canals clear 04/14/2010 None Full Exam - General Ears/Nose/Throat otoscopic exam Overall: tympanic membranes clear 04/14/2010 None Full Exam - General Ears/Nose/Throat internal nose Turbinates: hypertrophy 04/14/2010 None Full Exam - General Ears/Nose/Throat internal nose Drainage: clear 04/14/2010 None Full Exam - General Ears/Nose/Throat oral cavity/pharynx/larynx Overall: oral mucosa clear 04/14/2010 None Full Exam - General Constitutional general appearance Overall: well nourished 02/16/2010 None Full Exam - General Constitutional general appearance Overall: well developed 02/16/2010 None Full Exam - General Constitutional general appearance Overall: in no acute distress 02/16/2010 None Full Exam - General Respiratory auscultation Overall: breath sounds clear bilater ally 02/16/2010 None Full Exam - General Respiratory auscultation Diffuse: a normal exam 02/16/2010 None Full Exam - General Respiratory auscultation Left upper lung field: a normal exam 02/16/2010 None Full Exam - General Respiratory auscultation Left lower lung field: a normal exam 02/16/2010 None Full Exam - General Respiratory auscultation Right upper lung field: a normal exa m 02/16/2010 None Full Exam - General Respiratory auscultation Right middle lung field: a normal ex am 02/16/2010 None Full Exam - General Respiratory auscultation Right lower lung field: a normal exa m 02/16/2010 None Full Exam - General Cardiovascular auscultation of heart Overall: regular rate 02/16/2010 None Full Exam - General Cardiovascular auscultation of heart Overall: normal heart sounds 02/16/2010 None Full Exam - General Cardiovascular auscultation of heart Overall: no murmurs 02/16/2010 None Full Exam - General Cardiovascular auscultation of heart Rate: regular rate 02/16/2010 None Full Exam - General Cardiovascular auscultation of heart Rhythm: regular rhythm 02/16/2010 None Full Exam - General Cardiovascular auscultation of heart S1: a normal exam 02/16/2010 None Full Exam - General Cardiovascular auscultation of heart S2: a normal exam 02/16/2010 None Full Exam - General Cardiovascular auscultation of heart S3 (ventricular gallop): present 02/16/2010 None Full Exam - General Cardiovascular auscultation of heart S4 (atrial gallop): present 02/16/2010 None Full Exam - General Neurologic mental status Overall: alert 0 None Full Exam - General Neurologic mental status Overall: oriented 02/16/2010 None Full Exam - General Psychiatric mood and affect Overall: normal mood and affect 02/16/2010 None Full Exam - General Musculoskeletal spine, ribs and pelvis Spine: tender @ cervical spine 02/16/2010 None Full Exam - General Musculoskeletal spine, ribs and pelvis Spine: tender @ thoracic spine 02/16/2010 None Full Exam - General Constitutional general appearance Overall: well developed 02/03/2010 None Full Exam - General Constitutional general appearance Overall: well nourished 02/03/2010 None Full Exam - General Eyes conjunctiva/eyelids Overall: conjunctiva clear 02/03/2010 None Full Exam - General Eyes conjunctiva/eyelids Overall: cornea clear 02/03/2010 None Full Exam - General Eyes conjunctiva/eyelids Overall: eyelids normal 02/03/2010 None Full Exam - General Eyes pupils and irises Overall: pupils equal, round, reacti ve to light and accomodation 02/03/2010 None Full Exam - General Ears/Nose/Throat external ear Overall: normal appearance 02/03/2010 None Full Exam - General Ears/Nose/Throat otoscopic exam Right tympanic membrane: injected 02/03/2010 None Full Exam - General Ears/Nose/Throat otoscopic exam Right tympanic membrane: erythematous 02/03/2010 mildly Full Exam - General Ears/Nose/Throat lips/teeth/gingiva Overall: benign lips 02/03/2010 None Full Exam - General Ears/Nose/Throat lips/teeth/gingiva Overall: normal dentition 02/03/2010 None Full Exam - General Ears/Nose/Throat lips/teeth/gingiva Overall: benign gingiva 02/03/2010 None Full Exam - General Ears/Nose/Throat oral cavity/pharynx/larynx Oropharynx: erythema 02/03/2010 None Full Exam - General Respiratory auscultation Overall: breath sounds clear bilater ally 02/03/2010 None Full Exam - General Respiratory respiratory effort/rhythm Overall: no retractions 02/03/2010 None Full Exam - General Respiratory respiratory effort/rhythm Overall: normal rate 02/03/2010 frequent cough during exa m Full Exam - General Psychiatric orientation/consciousness Overall: oriented to person, place and time 02/03/2010 None Full Exam - General Neurologic mental status Overall: oriented 01/27/2010 None Full Exam - General Psychiatric mood and affect Overall: normal mood and affect 01/27/2010 None Full Exam - General Respiratory auscultation Right middle lung field: a normal ex am 01/27/2010 None Full Exam - General Respiratory auscultation Overall: breath sounds clear bilater ally 01/27/2010 None Full Exam - General Respiratory auscultation Right lower lung field: a normal exa m 01/27/2010 None Full Exam - General Cardiovascular auscultation of heart Overall: regular rate 01/27/2010 None Full Exam - General Cardiovascular auscultation of heart Overall: normal heart sounds 01/27/2010 None Full Exam - General Cardiovascular auscultation of heart Overall: no murmurs 01/27/2010 None Full Exam - General Cardiovascular auscultation of heart Rate: regular rate 01/27/2010 None Full Exam - General Cardiovascular auscultation of heart Rhythm: regular rhythm 01/27/2010 None Full Exam - General Cardiovascular auscultation of heart S1: a normal exam 01/27/2010 None Full Exam - General Cardiovascular auscultation of heart S2: a normal exam 01/27/2010 None Full Exam - General Cardiovascular auscultation of heart S3 (ventricular gallop): present 01/27/2010 None Full Exam - General Constitutional general appearance Overall: well nourished 01/27/2010 None Full Exam - General Constitutional general appearance Overall: well developed 01/27/2010 None Full Exam - General Constitutional general appearance Overall: in no acute distress 01/27/2010 None Full Exam - General Neurologic mental status Overall: alert 0 None Full Exam - General Respiratory auscultation Diffuse: a normal exam 01/27/2010 None Full Exam - General Respiratory auscultation Left upper lung field: a normal exam 01/27/2010 None Full Exam - General Respiratory auscultation Left lower lung field: a normal exam 01/27/2010 None Full Exam - General Respiratory auscultation Right upper lung field: a normal exa m 01/27/2010 None Full Exam - General Constitutional general appearance Overall: well developed 01/25/2010 None Full Exam - General Constitutional general appearance Overall: in no acute distress 01/25/2010 None Full Exam - General Neurologic mental status Overall: alert 0 None Full Exam - General Neurologic mental status Overall: oriented 01/25/2010 None Full Exam - General Neurologic deep tendon reflexes Overall: deep tendon reflexes intact 01/25/2010 None Full Exam - General Neurologic coordination Overall: no dysdiadochokinesis, no d ysmetria 01/25/2010 None Full Exam - General Neurologic coordination Overall: no tremors 01/25/2010 None Full Exam - General Neurologic cranial nerves Overall: cranial nerves 1-12 intact 01/25/2010 None Full Exam - General Psychiatric mood and affect Overall: normal mood and affect 01/25/2010 None Full Exam - General Eyes ophthalmoscopic exam Overall: benign arterioles 01/25/2010 None Full Exam - General Eyes ophthalmoscopic exam Overall: benign fundi 01/25/2010 None Full Exam - General Eyes pupils and irises Overall: pupils equal, round, reacti ve to light and accomodation 01/25/2010 None Full Exam - General Cardiovascular auscultation of heart Overall: regular rate 01/25/2010 None Full Exam - General Cardiovascular auscultation of heart Overall: normal heart sounds 01/25/2010 None Full Exam - General Constitutional general appearance Overall: well nourished 01/25/2010 None Full Exam - General Cardiovascular auscultation of heart Overall: no murmurs 01/25/2010 None Full Exam - General Cardiovascular auscultation of heart Rate: regular rate 01/25/2010 None Full Exam - General Cardiovascular auscultation of heart Rhythm: regular rhythm 01/25/2010 None Full Exam - General Cardiovascular auscultation of heart S1: a normal exam 01/25/2010 None Full Exam - General Cardiovascular auscultation of heart S2: a normal exam 01/25/2010 None Full Exam - General Respiratory auscultation Diffuse: a normal exam 01/25/2010 None Full Exam - General Respiratory auscultation Left upper lung field: a normal exam 01/25/2010 None Full Exam - General Respiratory auscultation Left lower lung field: a normal exam 01/25/2010 None Full Exam - General Respiratory auscultation Right upper lung field: a normal exa m 01/25/2010 None Full Exam - General Respiratory auscultation Right middle lung field: a normal ex am 01/25/2010 None Full Exam - General Respiratory auscultation Right lower lung field: a normal exa m 01/25/2010 None Full Exam - General Constitutional general appearance Overall: well nourished 12/08/2009 None Full Exam - General Constitutional general appearance Overall: well developed 12/08/2009 None Full Exam - General Constitutional general appearance Overall: in no acute distress 12/08/2009 None Full Exam - General Eyes conjunctiva/eyelids Overall: conjunctiva clear 12/08/2009 None Full Exam - General Eyes conjunctiva/eyelids Overall: cornea clear 12/08/2009 None Full Exam - General Eyes conjunctiva/eyelids Overall: eyelids normal 12/08/2009 None Full Exam - General Eyes pupils and irises Overall: pupils equal, round, reacti ve to light and accomodation 12/08/2009 None Full Exam - General Ears/Nose/Throat external ear Overall: normal appearance 12/08/2009 None Full Exam - General Ears/Nose/Throat external ear Overall: no masses 12/08/2009 None Full Exam - General Ears/Nose/Throat otoscopic exam Overall: external auditory canals clear 12/08/2009 None Full Exam - General Ears/Nose/Throat otoscopic exam Overall: tympanic membranes clear 12/08/2009 None Full Exam - General Ears/Nose/Throat lips/teeth/gingiva Overall: benign lips 12/08/2009 None Full Exam - General Ears/Nose/Throat lips/teeth/gingiva Overall: normal dentition 12/08/2009 None Full Exam - General Ears/Nose/Throat lips/teeth/gingiva Overall: benign gingiva 12/08/2009 None Full Exam - General Ears/Nose/Throat oral cavity/pharynx/larynx Overall: oral mucosa clear 12/08/2009 None Full Exam - General Ears/Nose/Throat oral cavity/pharynx/larynx Overall: mobile tongue benign 12/08/2009 None Full Exam - General Ears/Nose/Throat oral cavity/pharynx/larynx Overall: oropharyngeal mucosa clear 12/08/2009 None Full Exam - General Ears/Nose/Throat oral cavity/pharynx/larynx Overall: tonsils benign 12/08/2009 None Full Exam - General Respiratory auscultation Overall: breath sounds clear bilater ally 12/08/2009 None Full Exam - General Respiratory respiratory effort/rhythm Overall: no retractions 12/08/2009 None Full Exam - General Respiratory respiratory effort/rhythm Overall: normal rate 12/08/2009 None Full Exam - General Cardiovascular auscultation of heart Overall: regular rate 12/08/2009 None Full Exam - General Cardiovascular auscultation of heart Overall: normal heart sounds 12/08/2009 None Full Exam - General Psychiatric orientation/consciousness Overall: oriented to person, place and time 12/08/2009 None Full Exam - General Chest/Breast breast and axillae palpation Overall: breasts non- tender 12/08/2009 None Full Exam - General Chest/Breast breast and axillae palpation Overall: no masses 12/08/2009 None Full Exam - General Chest/Breast breast and axillae palpation Overall: axillae non- tender 12/08/2009 None Full Exam - General Chest/Breast breast and axillae palpation Overall: no nipple discharge 12/08/2009 None Full Exam - General Abdomen abdominal exam Overall: no tenderness 12/08/2009 None Full Exam - General Abdomen abdominal exam Overall: soft 12/08/2009 None Full Exam - General Abdomen abdominal exam Overall: no masses 12/08/2009 None Full Exam - General Abdomen abdominal exam Overall: normal bowel sounds 12/08/2009 None Full Exam - General Genitourinary labia and vagina Overall: normal hair distribution 12/08/2009 None Full Exam - General Genitourinary labia and vagina Overall: no lesions 12/08/2009 None Full Exam - General Genitourinary cervix Overall: no discharge 12/08/2009 None Full Exam - General Genitourinary adnexa/parametria Overall: no tenderness 12/08/2009 None Full Exam - General Integument inspection of skin Overall: no rash, lesions 12/08/2009 None Full Exam - General Constitutional general appearance Overall: well nourished 09/01/2009 None Full Exam - General Constitutional general appearance Overall: well developed 09/01/2009 None Full Exam - General Constitutional general appearance Overall: in no acute distress 09/01/2009 None Full Exam - General Musculoskeletal spine, ribs and pelvis Spine: tender @ lumbar spin e 09/01/2009 None Full Exam - General Neurologic deep tendon reflexes Overall: deep tendon reflexes intact 09/01/2009 None Full Exam - General Neurologic mental status Overall: alert 0 None Full Exam - General Neurologic mental status Overall: oriented 09/01/2009 None Full Exam - General Psychiatric mood and affect Overall: normal mood and affect 09/01/2009 None Procedures Procedure Codes Date ROUTINE VENIPUNCTURE CPT-4: 23376 06/29/2018 ASSAY OF FREE THYROXINE CPT-4: 59175 06/29/2018 ASSAY THYROID STIM H ORMONE CPT-4: 69774 06/29/2018 COMPREHEN METABOLIC PANEL CPT-4: 18397 06/29/2018 COMPLETE CBC W/AUTO DIFF WBC CPT-4: 41736 06/29/2018 LIPID PANEL CPT-4: 36430 06/29/2018 TDAP VACCINE 7 YRS/> IM CPT-4: 06000 06/11/2018 IMMUNIZATION ADMIN CPT- 4: 27756 06/11/2018 ROUTINE VENIPUNCTURE CPT-4: 37503 04/05/2017 ASSAY THYROID STIM H ORMONE CPT-4: 07865 04/05/2017 COMPREHEN METABOLIC PANEL CPT-4: 75163 04/05/2017 COMPLETE CBC W/AUTO DIFF WBC CPT-4: 62003 04/05/2017 LIPID PANEL CPT-4: 19253 04/05/2017 ASSAY OF BLOOD/URIC ACID CPT-4: 95636 04/05/2017 THER/PROPH/DIAG INJ SC/IM CPT-4: 65738 02/12/2016 TRIAMCINOLONE ACET I [place] NOS CPT-4: J3301 02/12/2016 DEXAMETHASONE SODIUM PHOS CPT-4: J1100 02/12/2016 PRESCRIP TRANSMIT A ERX SY CPT-4: G8553 10/01/2015 URINALYSIS NONAUTO W /O SCOPE CPT-4: 29320 10/01/2015 URINE CULTURE/ COLON Y COUNT CPT-4: 79979 10/01/2015 OCCULT BLOOD FECES CPT- 4: 73705 08/04/2015 [facility] C[facility]-4: 77824 08/04/2015 URINALYSIS NONAUTO W /O SCOPE CPT-4: 22387 05/27/2015 URINE CULTURE/ COLON Y COUNT CPT-4: 30454 05/27/2015 THER/PROPH/DIAG INJ SC/IM CPT-4: 52643 03/10/2015 KETOROLAC TROMETHAMI NE INJ CPT-4: J1885 03/10/2015 ROUTINE VENIPUNCTURE CPT-4: 74119 07/29/2014 ASSAY OF FREE THYROXINE CPT-4: 48189 07/29/2014 ASSAY THYROID STIM H ORMONE CPT-4: 73784 07/29/2014 COMPREHEN METABOLIC PANEL CPT-4: 71128 07/29/2014 COMPLETE CBC W/AUTO DIFF WBC CPT-4: 62633 07/29/2014 LIPID PANEL CPT-4: 43289 07/29/2014 ASSAY OF IRON CPT-4: 05746 07/29/2014 ASSAY OF FERRITIN CPT-4: 24050 07/29/2014 VITAMIN B 12 FOLIC ACID CPT-4: 50036|72047 07/29/2014 URINALYSIS NONAUTO W /O SCOPE CPT-4: 90897 05/31/2013 URINE CULTURE/ COLON Y COUNT CPT-4: 67058 05/31/2013 INFLUENZA ASSAY W/OPTIC CPT-4: 32561 05/27/2013 THER/PROPH/DIAG INJ SC/IM CPT-4: 32956 05/27/2013 METHYLPREDNISOLONE 4 0 MG INJ CPT-4: J1030 05/27/2013 TRIAMCINOLONE ACET I NJ NOS CPT-4: J3301 05/27/2013 ROUTINE VENIPUNCTURE CPT-4: 25842 02/26/2013 ASSAY OF FREE THYROXINE CPT-4: 98239 02/26/2013 ASSAY THYROID STIM H ORMONE CPT-4: 55774 02/26/2013 COMPREHEN METABOLIC PANEL CPT-4: 83399 02/26/2013 COMPLETE CBC W/AUTO DIFF WBC CPT-4: 11559 02/26/2013 LIPID PANEL CPT-4: 73637 02/26/2013 ROUTINE VENIPUNCTURE CPT-4: 48887 11/12/2012 COMPLETE CBC W/AUTO DIFF WBC CPT-4: 41583 11/12/2012 MYCOPLASMA ANTIBODY, IFA CPT-4: 46075H2 11/12/2012 ROUTINE VENIPUNCTURE CPT-4: 56407 06/05/2012 ASSAY OF FREE THYROXINE CPT-4: 01098 06/05/2012 ASSAY THYROID STIM H ORMONE CPT-4: 69864 06/05/2012 COMPREHEN METABOLIC PANEL CPT-4: 48407 06/05/2012 COMPLETE CBC W/AUTO DIFF WBC CPT-4: 83160 06/05/2012 LIPID PANEL CPT-4: 21246 06/05/2012 ANTINUCLEAR ANTIBODIES CPT-4: 02685 06/05/2012 RHEUMATOID FACTOR QUANT CPT-4: 37083 06/05/2012 ASSAY OF INSULIN CPT-4: 54685 06/05/2012 A1C GLYCOSYLATED HEM OGLOBIN TEST CPT-4: 04743 06/05/2012 SPECIMEN HANDLING OF [facility]-LAB CPT-4: 49333 12/21/2011 ROUTINE VENIPUNCTURE CPT-4: 86884 04/13/2011 ASSAY THYROID STIM H ORMONE CPT-4: 94493 04/13/2011 METABOLIC PANEL TOTA L CA CPT-4: 87118 04/13/2011 FSH CPT-4: 9520953 04/13/2011 LH CPT-4: 69474 04/13/2011 ASSAY OF ESTRADIOL CPT- 4: 16114 04/13/2011 URINALYSIS NONAUTO W /O SCOPE CPT-4: 07804 02/04/2011 URINE CULTURE/ COLON Y COUNT CPT-4: 53777 02/04/2011 ROUTINE VENIPUNCTURE CPT-4: 58069 12/21/2010 ASSAY OF FREE THYROXINE CPT-4: 86322 12/21/2010 ASSAY THYROID STIM H ORMONE CPT-4: 44556 12/21/2010 COMPLETE CBC W/AUTO DIFF WBC CPT-4: 53851 12/21/2010 COMPREHEN METABOLIC PANEL CPT-4: 09447 12/21/2010 LIPID PANEL CPT-4: 98856 12/21/2010 OCCULT BLOOD FECES CPT- 4: 07612 12/06/2010 ROUTINE VENIPUNCTURE CPT-4: 97828 12/09/2009 CBC WITH MANUAL DIFF ERENTIAL CPT-4: 23402|64903 12/09/2009 COMPREHEN METABOLIC PANEL CPT-4: 72991 12/09/2009 LIPID PANEL CPT-4: 74683 12/09/2009 ASSAY THYROID STIM H ORMONE CPT-4: 37428 12/09/2009 SPECIMEN HANDLING OF [facility]-LAB CPT-4: 90513 12/08/2009 THER/PROPH/DIAG INJ SC/IM CPT-4: 56409 09/01/2009 KETOROLAC TROMETHAMI NE INJ CPT-4: J1885 09/01/2009 URINALYSIS NONAUTO W /O SCOPE CPT-4: 69408 08/26/2009 Vital Signs Date Vital 01/15/2019 Blood Pressure 1: 132/80 Code: 8480-6 Heart Rate 1: 64 bpm SpO2: 98% Temperature: 36.1 (C ) / 97.0 (F) Weight: 198 lbs 07/20/2018 Blood Pressure 1: 118/80 Code: 8480-6 Heart Rate 1: 68 bpm Respiratory Rate: 20 bpm SpO2: 97% Temperature: 36.6 (C ) / 97.9 (F) Weight: 191 lbs 8 oz 06/29/2018 Heigh t: 5'2" 06/11/2018 Blood Pressure 1: 106/68 Code: 8480-6 BMI: 36.2 Code: 20283-8 Heart Rate 1: 72 bpm Height: 5'2" Respiratory Rate: 20 bpm SpO2: 97% Temperature: 37.1 (C ) / 98.8 (F) Weight: 198 lbs 04/05/2017 Blood Pressure 1: 114/78 Code: 8480-6 BMI: 35.5 Code: 18652-4 Heart Rate 1: 68 bpm Height: 5'2" Respiratory Rate: 20 bpm SpO2: 96% Temperature: 36.9 (C ) / 98.5 (F) Weight: 194 lbs 02/12/2016 Blood Pressure 1: 126/78 Code: 8480-6 BMI: 31.8 Code: 74102-3 Heart Rate 1: 60 bpm Height: 5'2" Respiratory Rate: 24 bpm SpO2: 96% Temperature: 36.2 (C ) / 97.1 (F) Weight: 174 lbs 01/25/2016 Blood Pressure 1: 128/78 Code: 8480-6 BMI: 31.6 Code: 27611-9 Heart Rate 1: 76 bpm Height: 5'2" Respiratory Rate: 20 bpm SpO2: 98% Temperature: 36.5 (C ) / 97.7 (F) Weight: 173 lbs 10/01/2015 Blood Pressure 1: 108/58 Code: 8480-6 BMI: 32.9 Code: 26638-2 Heart Rate 1: 62 bpm Height: 5'2" Respiratory Rate: 20 bpm SpO2: 98% Temperature: 36.2 (C ) / 97.1 (F) Weight: 180 lbs 08/04/2015 Blood Pressure 1: 126/78 Code: 8480-6 BMI: 33.8 Code: 26033-3 Heart Rate 1: 72 bpm Height: 5'2" Respiratory Rate: 20 bpm Temperature: 36.9 (C ) / 98.5 (F) Weight: 185 lbs 05/27/2015 Blood Pressure 1: 132/80 Code: 8480-6 BMI: 36.2 Code: 90601-4 Heart Rate 1: 56 bpm Height: 5'2" Respiratory Rate: 20 bpm Temperature: 37.0 (C ) / 98.6 (F) Weight: 198 lbs 03/10/2015 Blood Pressure 1: 136/82 Code: 8480-6 BMI: 36.2 Code: 56375-6 Heart Rate 1: 88 bpm Height: 5'2" Respiratory Rate: 20 bpm Temperature: 37.0 (C ) / 98.6 (F) Weight: 198 lbs 06/30/2014 Blood Pressure 1: 124/78 Code: 8480-6 BMI: 35.8 Code: 43529-9 Heart Rate 1: 84 bpm Height: 5'2" Respiratory Rate: 20 bpm Temperature: 36.8 (C ) / 98.2 (F) Weight: 196 lbs 08/12/2013 Blood Pressure 1: 114/72 Code: 8480-6 BMI: 35.8 Code: 22110-4 Heart Rate 1: 80 bpm Height: 5'2" Respiratory Rate: 20 bpm Temperature: 36.9 (C ) / 98.4 (F) Weight: 196 lbs 05/31/2013 Blood Pressure 1: 118/78 Code: 8480-6 Heart Rate 1: 84 bpm Respiratory Rate: 20 bpm Temperature: 36.5 (C) / 97.7 (F) 05/27/2013 Blood Pressure 1: 124/84 Code: 8480-6 Heart Rate 1: 82 bpm Respiratory Rate: 22 bpm Temperature: 36.7 (C) / 98.0 (F) Weight: 197 lbs 02/26/2013 Blood Pressure 1: 132/86 Code: 8480-6 BMI: 34.9 Code: 21969-9 Heart Rate 1: 72 bpm Height: 5'2" Respiratory Rate: 20 bpm Temperature: 36.9 (C ) / 98.4 (F) Weight: 191 lbs 11/29/2012 Blood Pressure 1: 126/82 Code: 8480-6 BMI: 34.4 Code: 48390-9 Heart Rate 1: 84 bpm Height: 5'2" Respiratory Rate: 20 bpm Temperature: 36.7 (C ) / 98.0 (F) Weight: 188 lbs 11/12/2012 Blood Pressure 1: 110/62 Code: 8480-6 BMI: 34.8 Code: 25504-8 Heart Rate 1: 64 bpm Height: 5'2" Temperature: 36.7 (C ) / 98.1 (F) Weight: 190 lbs 07/30/2012 Blood Pressure 1: 124/82 Code: 8480-6 BMI: 36.0 Code: 35116-9 Heart Rate 1: 84 bpm Height: 5'2" Respiratory Rate: 20 bpm Temperature: 36.5 (C ) / 97.7 (F) Weight: 197 lbs 06/04/2012 Blood Pressure 1: 118/70 Code: 8480-6 BMI: 36.2 Code: 04302-5 Heart Rate 1: 64 bpm Height: 5'2" Temperature: 37.1 (C ) / 98.7 (F) Weight: 198 lbs 12/21/2011 Blood Pressure 1: 132/80 Code: 8480-6 BMI: 33.3 Code: 32765-4 Heart Rate 1: 64 bpm Height: 5'2" Respiratory Rate: 20 bpm Temperature: 36.6 (C ) / 97.8 (F) Weight: 182 lbs 10/07/2011 Blood Pressure 1: 128/72 Code: 8480-6 BMI: 34.4 Code: 90474-7 Heart Rate 1: 80 bpm Height: 5'2" Respiratory Rate: 20 bpm Temperature: 36.8 (C ) / 98.2 (F) Weight: 188 lbs 09/05/2011 Blood Pressure 1: 106/72 Code: 8480-6 BMI: 33.3 Code: 35531-6 Heart Rate 1: 76 bpm Height: 5'2" Respiratory Rate: 20 bpm Temperature: 36.6 (C ) / 97.9 (F) Weight: 182 lbs 04/28/2011 Blood Pressure 1: 110/70 Code: 8480-6 BMI: 34.4 Code: 81168-8 Heart Rate 1: 60 bpm Height: 5'2" Temperature: 37.0 (C ) / 98.6 (F) Weight: 188 lbs 04/13/2011 Blood Pressure 1: 106/84 Code: 8480-6 BMI: 34.4 Code: 16654-3 Heart Rate 1: 80 bpm Height: 5'2" Respiratory Rate: 20 bpm Temperature: 36.6 (C ) / 97.8 (F) Weight: 188 lbs 02/04/2011 Blood Pressure 1: 108/76 Code: 8480-6 BMI: 33.7 Code: 74641-6 Heart Rate 1: 74 bpm Height: 5'2" Weight: 184 lbs 12/06/2010 Blood Pressure 1: 120/72 Code: 8480-6 BMI: 33.3 Code: 62729-1 Heart Rate 1: 76 bpm Height: 5'2" Temperature: 36.8 (C ) / 98.2 (F) Weight: 182 lbs 04/14/2010 [...] 1: 118/66 Code: 8480-6 BMI: 32.6 Code: 63927-2 Heart Rate 1: 68 bpm Height: 5'2" Temperature: 36.7 (C ) / 98.1 (F) Weight: 178 lbs 09/01/2009 Blood Pressure 1: 118/76 Code: 8480-6 BMI: 34.6 Code: 04971-8 Heart Rate 1: 76 bpm Height: 5'2" Temperature: 36.5 (C ) / 97.7 (F) Weight: 189 lbs Functional Status No Functional Status data History of Present Illness Symptom Name Status Resu lt Effective Date Notes Onset of Symptom 3 wee ks ago 07/20/2018 None Onset of Symptom 2 wee ks ago 07/20/2018 None Onset of Symptom 3 wee ks ago 07/20/2018 None Onset of Symptom 3 wee ks ago 07/20/2018 None Onset of Symptom 3 wee ks ago 07/20/2018 coughing up yellow stuff Location on the right 07/20/2018 None Location in the lung 07/20/2018 None Quality breathlessness 07/20/2018 None Quality painful 07/20/2018 None Quality thick secretions 07/20/2018 None Quality shortness of b reath 07/20/2018 None Quality hacking 07/20/2018 None Quality worsening 07/20/2018 None Onset and Resolution o ngoing 07/20/2018 None Onset and Resolution o ngoing 07/20/2018 None Onset and Resolution o ngoing 07/20/2018 None Quality chronic 06/11/2018 None Lifestyle no history o f physical abuse 06/11/2018 None Lifestyle no history o f sexual abuse 06/11/2018 None Lifestyle no history o f verbal abuse 06/11/2018 None Lifestyle regular seat belt use 06/11/2018 None Lifestyle family suppo rtive of relationship 06/11/2018 None Lifestyle satisfactory work experience 06/11/2018 None Lifestyle normal sleep patterns 06/11/2018 None Lifestyle satisfactory marriage/partner relationship 06/11/2018 None Control none 06/11/2018 None Nutrition and Exercise overweight 06/11/2018 None Nutrition and Exercise balanced nutrition 06/11/2018 None Nutrition and Exercise minimal exercise 06/11/2018 None Sexual Activity is mon ogamous 06/11/2018 None Sexual Activity is sex ually active 06/11/2018 None Health Guidance self-b reast exam 06/11/2018 None Health Guidance baseli ne mammogram 06/11/2018 None Health Guidance HIV pr ecautions 06/11/2018 None Health Guidance STD pr ecautions 06/11/2018 None Health Guidance tobacc o, drugs and alcohol avoidance 06/11/2018 None Health Guidance regula r exercise 06/11/2018 None Health Guidance safety belt use 06/11/2018 None Health Guidance helmet use 06/11/2018 None Health Guidance hearin g loss prevention 06/11/2018 None Health Guidance limiti ng UV/sun exposure 06/11/2018 None Health Guidance suicid e prevention 06/11/2018 None Health Guidance depres fernando symptoms 06/11/2018 None Menstrual History amen orrhea 06/11/2018 None Health Guidance geneti c counseling 06/11/2018 None Health Guidance colono scopy/sigmoidoscopy 06/11/2018 in 2017 Pap Smear normal results 06/11/2018 None Cardiovascular Risk Factors dyslipidemia 06/11/2018 None Cardiovascular Risk Factors obesity 06/11/2018 None Cardiovascular Risk Factors hypertension 06/11/2018 None Annual Checkup Pap Smear last normal performed on 12-21-11 04/05/2017 None Annual Checkup Control menopause. 04/05/2017 Patient would like to try OTC Black Cohosh for hot flashes hypertension Quality chr onic 04/05/2017 None hypertension Quality julia amna hypertension 04/05/2017 None hypertension Quality sta ble 04/05/2017 None Annual Checkup Lifestyle no history of physical abuse 04/05/2017 None Annual Checkup Nutrition and Exercise overweight 04/05/2017 None Annual Checkup Nutrition and Exercise balanced nutrition 04/05/2017 None Annual Checkup Nutrition and Exercise moderate exercise 04/05/2017 None Annual Checkup Reproductive System D evelopment normal development 04/05/2017 None Annual Checkup Health Guidance self-breast exam 04/05/2017 None Annual Checkup Health Guidance HIV precautions 04/05/2017 None Annual Checkup Health Guidance STD precautions 04/05/2017 None Annual Checkup Health Guidance tobacco, drugs and alcohol avoidance 04/05/2017 None Annual Checkup Health Guidance regular exercise 04/05/2017 None Annual Checkup Health Guidance safety belt use 04/05/2017 None Annual Checkup Health Guidance helmet use 04/05/2017 None Annual Checkup Health Guidance hearing loss prevention 04/05/2017 None Annual Checkup Health Guidance limiting UV/sun exposure 04/05/2017 None Annual Checkup Health Guidance suicide prevention 04/05/2017 None Annual Checkup Health Guidance depression symptoms 04/05/2017 None Annual Checkup Sexual Activity is sexually active 04/05/2017 None Annual Checkup Sexual Activity is monogamous 04/05/2017 None Annual Checkup Menstrual History amenorrhea 04/05/2017 None cough Location in the th roat 02/12/2016 None cough Quality acute 02/12/2016 None cough Quality hacking 02/12/2016 None cough Quality interrupts sleep 02/12/2016 None cough Quality productive 02/12/2016 Yellow Sputum cough Onset and Resolution gradual in resolution 02/12/2016 None cough Onset and Resolution ongoing 02/12/2016 None nasal discharge Location in both nares 02/12/2016 None nasal discharge Quality acute 02/12/2016 None nasal discharge Onset and Resolution ongoing 02/12/2016 None otalgia Location on both sides 02/12/2016 None otalgia Quality acute 02/12/2016 None otalgia Quality dull/pre ssure 02/12/2016 None otalgia Onset and Resolution gradual in resolution 02/12/2016 None sore throat Location dif fusely 02/12/2016 None sore throat Quality acute 02/12/2016 None sore throat Quality achi ng 02/12/2016 None sore throat Quality scra tchy 02/12/2016 None sore throat Onset and Resolution gradual in resolution 02/12/2016 None sore throat Onset and Resolution ongoing 02/12/2016 None postnasal drip Quality a cute 02/12/2016 None postnasal drip Onset and Resolution gradual in resolution 02/12/2016 None sinusitis Location diffu sely 02/12/2016 None sinusitis Quality acute 02/12/2016 None sinusitis Quality fullne ss 02/12/2016 None sinusitis Onset and Resolution gradual in onset 02/12/2016 None sinusitis Onset and Resolution ongoing 02/12/2016 None cough Onset of Symptom _ days ago 02/12/2016 None nasal discharge Quality green 02/12/2016 None nasal discharge Quality thick 02/12/2016 None nasal discharge Quality worsening 02/12/2016 None nasal discharge Onset of Symptom _ days ago 02/12/2016 None sinus congestion Quality acute 02/12/2016 None sinus congestion Quality fullness 02/12/2016 None sinus congestion Quality pain 02/12/2016 None sinus congestion Quality pressure 02/12/2016 None sinus congestion Onset of Symptom _ days ago 02/12/2016 None cough Location in the th roat 01/25/2016 None cough Quality acute 01/25/2016 None cough Quality dry 01/25/2016 None cough Quality hacking 01/25/2016 None cough Onset and Resolution gradual in onset 01/25/2016 None cough Quality productive 01/25/2016 Intermittent- cough Onset of Symptom 3 -4 days ago 01/25/2016 None sinus congestion Quality acute 01/25/2016 None sinus congestion Quality fullness 01/25/2016 None sinus congestion Quality pain 01/25/2016 None sinus congestion Quality pressure 01/25/2016 None sinus congestion Location on both sides 01/25/2016 None sinus congestion Onset of Symptom 3-4 days ago 01/25/2016 None otalgia Location on the right 01/25/2016 None otalgia Quality acute 01/25/2016 None otalgia Quality dull 01/25/2016 None otalgia Onset and Resolution gradual in onset 01/25/2016 None otalgia Onset of Symptom 3-4 days ago 01/25/2016 None sore throat Location dif fusely 01/25/2016 None sore throat Quality acute 01/25/2016 None sore throat Quality achi ng 01/25/2016 None sore throat Quality burn ing 01/25/2016 None sore throat Onset and Resolution gradual in onset 01/25/2016 None sore throat Onset of Symptom 4-5 days ago 01/25/2016 None postnasal drip Quality a cute 01/25/2016 None postnasal drip Quality c lear 01/25/2016 None postnasal drip Onset and Resolution gradual in onset 01/25/2016 None postnasal drip Onset of Symptom 4-5 days ago 01/25/2016 None voice change Quality acu te 01/25/2016 None voice change Quality alexander athy voice 01/25/2016 None voice change Onset and Resolution gradual in onset 01/25/2016 None voice change Onset of Symptom 4-5 days ago 01/25/2016 None nasal discharge Location in both nares 01/25/2016 None nasal discharge Quality acute 01/25/2016 None nasal discharge Quality green 01/25/2016 None nasal discharge Quality thick 01/25/2016 None nasal discharge Quality worsening 01/25/2016 None nasal discharge Onset of Symptom _ days ago 01/25/2016 None pelvic pain Location dif fusely 10/01/2015 None pelvic pain Quality acute 10/01/2015 None pelvic pain Quality achi ng 10/01/2015 None pelvic pain Onset of Symptom 1 days ago 10/01/2015 None fatigue Quality acute 10/01/2015 None fatigue Quality intermit tent 10/01/2015 None fatigue Onset of Symptom 1 day ago 10/01/2015 None dysuria Quality aching 10/01/2015 None dysuria Quality acute 10/01/2015 None dysuria Quality worsening 10/01/2015 None dysuria Onset of Symptom _ days ago 10/01/2015 None pelvic pain Quality dull 10/01/2015 None pelvic pain Quality heav iness 10/01/2015 None Annual Checkup Control menopause 08/04/2015 None Annual Checkup Pap Smear last normal performed on 12-26-11 08/04/2015 None Annual Checkup Sexual Activity is monogamous 08/04/2015 None Annual Checkup Sexual Activity is sexually active 08/04/2015 None Annual Checkup Lifestyle no history of physical abuse 08/04/2015 None Annual Checkup Lifestyle no history of sexual abuse 08/04/2015 None Annual Checkup Lifestyle no history of verbal abuse 08/04/2015 None Annual Checkup Lifestyle regular seatbelt use 08/04/2015 None Annual Checkup Lifestyle family supportive of relationship 08/04/2015 None Annual Checkup Lifestyle satisfactory school experience 08/04/2015 None Annual Checkup Lifestyle satisfactory peer relationships 08/04/2015 None Annual Checkup Lifestyle normal amount of stress 08/04/2015 None Annual Checkup Nutrition and Exercise overweight 08/04/2015 None Annual Checkup Nutrition and Exercise balanced nutrition 08/04/2015 None Annual Checkup Nutrition and Exercise moderate exercise 08/04/2015 None Annual Checkup Menstrual History amenorrhea 08/04/2015 None Annual Checkup Reproductive System D evelopment normal development 08/04/2015 None Annual Checkup Health Guidance self-breast exam 08/04/2015 None Annual Checkup Health Guidance HIV precautions 08/04/2015 None Annual Checkup Health Guidance STD precautions 08/04/2015 None Annual Checkup Health Guidance tobacco, drugs and alcohol avoidance 08/04/2015 None Annual Checkup Health Guidance regular exercise 08/04/2015 None Annual Checkup Health Guidance safety belt use 08/04/2015 None Annual Checkup Health Guidance helmet use 08/04/2015 None Annual Checkup Health Guidance hearing loss prevention 08/04/2015 None Annual Checkup Health Guidance limiting UV/sun exposure 08/04/2015 None Annual Checkup Health Guidance suicide prevention 08/04/2015 None Annual Checkup Health Guidance depression symptoms 08/04/2015 None menstrual irregularity Quality metrorrhagia. 05/27/2015 Patient had a period in [place] pril and then again 05-18-15. 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 headache Quality stabbing 03/10/2015 None headache Onset and Resolution ongoing 03/10/2015 None headache Onset of Symptom 1 days ago 03/10/2015 None seizure Triggers stress 03/10/2015 None fatigue Quality acute 03/10/2015 only had 3 hours of sleep Monday night dizziness Quality acute 03/10/2015 just prior to episode seizure Triggers meals 03/10/2015 has not been eating as much protein gastroesophageal reflux Quality regurgitation of food 06/30/2014 None gastroesophageal reflux Onset and Re solution ongoing 06/30/2014 Discu ss changing prevacid to something different because insurance won't pay for it twice daily headache Quality chronic 06/30/2014 Refill treximet hip pain Location on the right 06/30/2014 None hip pain Quality intermi ttent 06/30/2014 None hip pain Quality sharp p ain 06/30/2014 None hip pain Quality radiati ng 06/30/2014 None hip pain Onset and Resolution ongoing 06/30/2014 None hip pain Onset of Symptom 3 months ago 06/30/2014 None knee pain Location on th e left 06/30/2014 None knee pain Quality popping 06/30/2014 None well woman exam (40-65 years) Lifestyle no history of physical abuse 06/30/2014 None well woman exam (40-65 years) Lifestyle no history of sexual abuse 06/30/2014 None well woman exam (40-65 years) Lifestyle no history of verbal abuse 06/30/2014 None well woman exam (40-65 years) Lifestyle regular seatbelt use 06/30/2014 None well woman exam (40-65 years) Lifestyle family supportive of relationship 06/30/2014 None well woman exam (40-65 years) Lifestyle satisfactory work experience 06/30/2014 None well woman exam (40-65 years) Lifestyle normal sleep patterns 06/30/2014 None well woman exam (40-65 years) Lifestyle normal amount of stress 06/30/2014 None well woman exam (40-65 years) Lifestyle satisfactory marriage/partner relationship 06/30/2014 None well woman exam (40-65 years) Contro l none 06/30/2014 None well woman exam (40-65 years) Nutrit ion and Exercise overweight 06/30/2014 No ne well woman exam (40-65 years) Nutrit ion and Exercise regular diet 06/30/2014 None well woman exam (40-65 years) Nutrit ion and Exercise minimal exercise 06/30/2014 None well woman exam (40-65 years) Cardio vascular Risk Factors hypertension 06/30/2014 None well woman exam (40-65 years) Cardio vascular Risk Factors dyslipidemia 06/30/2014 None well woman exam (40-65 years) Cardio vascular Risk Factors obesity 06/30/2014 None well woman exam (40-65 years) Cardio vascular Risk Factors lifestyle 06/30/2014 Non e well woman exam (40-65 years) Health Guidance self-breast exam 06/30/2014 None well woman exam (40-65 years) Health Guidance baseline mammogram 06/30/2014 None well woman exam (40-65 years) Health Guidance HIV precautions 06/30/2014 None well woman exam (40-65 years) Health Guidance STD precautions 06/30/2014 None well woman exam (40-65 years) Health Guidance tobacco, drugs and alcohol avoidance 06/30/2014 None well woman exam (40-65 years) Health Guidance regular exercise 06/30/2014 None well woman exam (40-65 years) Health Guidance safety belt use 06/30/2014 None well woman exam (40-65 years) Health Guidance helmet use 06/30/2014 No ne well woman exam (40-65 years) Health Guidance hearing loss prevention 06/30/2014 None well woman exam (40-65 years) Health Guidance limiting UV/sun exposure 06/30/2014 None well woman exam (40-65 years) Health Guidance suicide prevention 06/30/2014 None well woman exam (40-65 years) Health Guidance depression symptoms 06/30/2014 None well woman exam (40-65 years) Sexual Activity is sexually active 06/30/2014 None well woman exam (40-65 years) Sexual Activity experiences sexual satisfaction 06/30/2014 None well woman exam (40-65 years) Sexual Activity is monogamous 06/30/2014 None well woman exam (40-65 years) Menstr ual History regular menses 06/30/2014 None headache Onset and Resolution ongoing 06/30/2014 None headache Quality worseni ng 06/30/2014 since has stopped botox b ut not as severe as was before rash Location-Major in t he groin area 08/12/2013 None rash Onset and Resolution ongoing 08/12/2013 Uses nystatin as needed rash Quality erythematous 08/12/2013 None rash Quality pruritic 08/12/2013 None sore throat Onset of Symptom 4 days ago 08/12/2013 None cough Quality constant 08/12/2013 None cough Onset of Symptom 4 days ago 08/12/2013 None pelvic pain Location dif fusely 05/31/2013 None pelvic pain Quality achi ng 05/31/2013 None pelvic pain Onset of Symptom 2 days ago 05/31/2013 None urinary frequency Quality acute 05/31/2013 None urinary frequency Onset of Symptom 2 days ago 05/31/2013 None dysuria Quality burning 05/31/2013 None dysuria Onset of Symptom 2 days ago 05/31/2013 None sinusitis Location diffu sely 05/27/2013 None sinusitis Quality pressu re 05/27/2013 None sinusitis Quality fullne ss 05/27/2013 None sinusitis Quality pain 05/27/2013 None sinusitis Onset of Symptom 1 days ago 05/27/2013 None fever Quality acute 05/27/2013 None fever Temperature 100 de grees 05/27/2013 None fever Onset of Symptom 1 days ago 05/27/2013 None sore throat Location dif fusely 05/27/2013 None sore throat Quality achi ng 05/27/2013 None sore throat Onset of Symptom 1 days ago 05/27/2013 None cough Location in the th roat 05/27/2013 None cough Quality acute 05/27/2013 None cough Quality productive 05/27/2013 None cough Onset of Symptom 2 days ago 05/27/2013 None otalgia Location on both sides 05/27/2013 None otalgia Quality pressure 05/27/2013 None otalgia Onset of Symptom 1 days ago 05/27/2013 None rash Location-Major in t he groin area 02/26/2013 None rash Location-Major on t he legs 02/26/2013 None rash Quality pruritic 02/26/2013 None rash Quality recurrent 02/26/2013 Will last a few weeks and then improve f or a few weeks rash Location-Major on t he legs 11/29/2012 None rash Quality pruritic 11/29/2012 None rash Onset and Resolution ongoing since the fall 11/29/2012 None rash Quality intermittent 11/29/2012 None rash Color red 11/29/2012 None cough Location in the satya ng 11/12/2012 None cough Quality constant 11/12/2012 None cough Quality hacking 11/12/2012 None cough Quality interrupts sleep 11/12/2012 None cough Quality productive 11/12/2012 at times cough Quality worsening 11/12/2012 None cough Onset and Resolution sudden in onset 11/12/2012 None cough Onset of Symptom 2 weeks ago 11/12/2012 None cough Limitation on Activities moderately limits activities 11/12/2012 None sore throat Location dif fusely 11/12/2012 None sore throat Quality achi ng 11/12/2012 None sore throat Quality cons tant 11/12/2012 None sore throat Quality scra tchy 11/12/2012 None sore throat Onset and Resolution sudden in onset 11/12/2012 None sore throat Onset of Symptom 2 weeks ago 11/12/2012 None sore throat Limitation on Activities does not limit oral intake 11/12/2012 None sinus congestion Location on both sides 11/12/2012 None sinus congestion Quality constant 11/12/2012 None sinus congestion Quality fullness 11/12/2012 None sinus congestion Quality pressure 11/12/2012 None sinus congestion Quality pain 11/12/2012 None sinus congestion Onset and Resolution sudden in onset 11/12/2012 None sinus congestion Onset of Symptom 2 weeks ago 11/12/2012 None sinus congestion Severity moderate 11/12/2012 None sore throat Onset of Symptom 1 weeks ago 07/30/2012 None rash Location-Major in t he groin area 06/04/2012 None rash Location-Major on t he arms 06/04/2012 None rash Location-Major on t he upper body 06/04/2012 None rash Location-Major on t he lower body 06/04/2012 None rash Location-Major on t he legs 06/04/2012 None rash Quality new 06/04/2012 None rash Quality worsening 06/04/2012 None rash Quality aching 06/04/2012 itchy rash Color pink 06/04/2012 None rash Onset and Resolution sudden in onset 06/04/2012 None rash Onset of Symptom 5 months ago 06/04/2012 but has worsened well woman exam (40-65 years) Pap Smear last normal performed on 12-06-12/21/2011 None well woman exam (40-65 years) Contro l bilateral tubal ligation 12/21/2011 None well woman exam (40-65 years) Menstr ual History last menstrual period 12-01-12/20 None well woman exam (40-65 years) Menstr ual History regular menses 12/21/2011 None well woman exam (40-65 years) Menstr ual History period length of 5 days 12/21/2011 None well woman exam (40-65 years) Menstr ual History 29-30 days between periods 12/21/2011 None well woman exam (40-65 years) Menstr ual History heavy flow first two days 12/21/2011 None well woman exam (40-65 years) Menstr ual History light flow the last couple days 12/2011 None nasal allergies Location in both nares 12/21/2011 None low blood pressure Quality acute 09/05/2011 since atenolol was added fatigue Quality worsening 09/05/2011 since started atenolol and BP has been l ower dizziness Quality interm ittent 09/05/2011 thinks related to low blo od pressure headache Onset and Resolution ongoing 09/05/2011 None headache Quality intermi ttent 09/05/2011 None headache Quality stabbing 09/05/2011 None headache Quality sharp 09/05/2011 None headache Quality throbbi ng 09/05/2011 None otalgia Location on the right 09/05/2011 None otalgia Quality acute 09/05/2011 None otalgia Quality dull 09/05/2011 may be allergy or sinus related verruca Location on both feet 09/05/2011 None verruca Quality acute 09/05/2011 None verruca Quality black 09/05/2011 seed warts sore throat Limitation on Activities does not limit oral intake 04/28/2011 None sore throat Frequency of Episodes increasing 04/28/2011 None diarrhea Quality constant 04/28/2011 None diarrhea Quality loose 04/28/2011 None diarrhea Quality watery 04/28/2011 None diarrhea Onset and Resolution sudden in onset 04/28/2011 None cough Location in the th roat 04/28/2011 None cough Quality dry 04/28/2011 None cough Quality constant 04/28/2011 None cough Onset and Resolution sudden in onset 04/28/2011 None cough Onset of Symptom 1 days ago 04/28/2011 None diarrhea Onset of Symptom today days ago 04/28/2011 None sinus congestion Location on both sides 04/28/2011 None sinus congestion Quality fullness 04/28/2011 None sinus congestion Quality constant 04/28/2011 None sinus congestion Quality pressure 04/28/2011 None sinus congestion Onset and Resolution sudden in onset 04/28/2011 None sinus congestion Onset of Symptom 1 weeks ago 04/28/2011 None sinus congestion Severity moderate 04/28/2011 None sinus congestion Frequency of Episodes increasing 04/28/2011 None sore throat Location on both sides 04/28/2011 None sore throat Quality achi ng 04/28/2011 None sore throat Quality cons tant 04/28/2011 None sore throat Quality scra tchy 04/28/2011 None sore throat Onset and Resolution sudden in onset 04/28/2011 None sore throat Onset of Symptom 1 weeks ago 04/28/2011 None finger pain Quality acute 04/13/2011 4th middle knuckle--hit on cabinet ~generic Quality acute 04/13/2011 None menopausal symptoms Quality headache 04/13/2011 None nasal pain Quality acute 04/13/2011 had nasal reconstuction in 1993 dysuria Quality aching 02/04/2011 None dysuria Quality burning 02/04/2011 None dysuria Onset and Resolution sudden in onset 02/04/2011 None dysuria Onset of Symptom 4 days ago 02/04/2011 None pelvic pain Location on both sides 02/04/2011 None pelvic pain Quality achi ng 02/04/2011 None pelvic pain Quality cram ping 02/04/2011 None pelvic pain Onset and Resolution sudden in onset 02/04/2011 None pelvic pain Onset of Symptom 4 days ago 02/04/2011 None pelvic pain Limitation on Activities does not limit activities 02/04/2011 None pelvic pain Frequency of Episodes unchanged 02/04/2011 None urinary frequency Quality constant 02/04/2011 None urinary frequency Onset and Resolution sudden in onset 02/04/2011 None urinary frequency Onset of Symptom 4 days ago 02/04/2011 None well woman exam (40-65 years) Pap Smear 1 years ago 12/06/2010 None well woman exam (40-65 years) Menstr ual History last menstrual period 7-11 12/06/2010 None well woman exam (40-65 years) Contro l none 12/06/2010 Would like to visit about upcoming trip to pain clinic and possibility of migrolepsy. Has lesion above right eye pt would like evaluated. First noticed 6 months ago, has become irritated 1 month ago. headache Onset and Resolution ongoing 04/14/2010 even with elavil but has caused constipation--did try norvasc as well apneic events Quality ac tomi 04/14/2010 just had sleep study whic h showed mild to moderate apnea follow up Illness sympto ms remained unchanged 04/14/2010 None fatigue Quality constant 04/14/2010 None headache Onset and Resolution ongoing 02/16/2010 daily but not as severe-- last severe one used treximet and helped follow up Illness sympto ms improved 02/16/2010 still with daily headache s but not as severe eye erythema Location on both eyes 02/16/2010 None sinusitis Location diffu sely 02/03/2010 None sinusitis Quality acute 02/03/2010 None sinusitis Quality fullne ss 02/03/2010 None sinusitis Quality pressu re 02/03/2010 None sinusitis Quality clear 02/03/2010 None sinusitis Onset of Symptom 4 days ago 02/03/2010 Taking Topamax, has side effect of URI. Has question regarding dosing of Topamax. sore throat Location dif fusely 02/03/2010 None sore throat Quality scra tchy 02/03/2010 None sore throat Onset of Symptom 4 days ago 02/03/2010 None cough Location in the th roat 02/03/2010 None cough Location in the la rynx 02/03/2010 None cough Quality acute 02/03/2010 None cough Quality productive 02/03/2010 None cough Timing of Episodes in the morning 02/03/2010 None otitis media Location on the right 02/03/2010 None otitis media Quality acu te 02/03/2010 None otitis media Quality dul l pain with intermittant tinnitus 02/03/2010 None otitis media Onset of Symptom 2 days ago 02/03/2010 None headache Location diffus marek 01/27/2010 None nausea Quality intermitt ent 01/27/2010 assoc with Migraine mental status change Quality disorientation 01/27/2010 None headache Quality acute 01/25/2010 None headache Onset and Resolution sudden in onset 01/25/2010 None headache Onset of Symptom 4 days ago 01/25/2010 None headache Pertinent Findings nausea 01/25/2010 None spasms/spasticity Pertinent Findings mental status change 01/25/2010 could hear people talking, but couldn't answer vision change Quality bl urred vision 01/25/2010 feels like vaseline over eyes mental status change Onset and Resolution ongoing 01/25/2010 None well woman exam (40-65 years) Pap Smear 1 years ago 12/08/2009 None well woman exam (40-65 years) Pap Smear normal results 12/08/2009 None well woman exam (40-65 years) Menstr ual History regular menses 12/08/2009 None well woman exam (40-65 years) Menstr ual History last menstrual period 11-06-12/08 None well woman exam (40-65 years) Menstr ual History normal flow 12/08/2009 N one well woman exam (40-65 years) Nutrit ion and Exercise overweight 12/08/2009 No ne well woman exam (40-65 years) Nutrit ion and Exercise regular diet 12/08/2009 None well woman exam (40-65 years) Contro l bilateral tubal ligation 12/08/2009 None well woman exam (40-65 years) Obstet rical History 4 total pregnancies 12/08/2009 None back pain Location lumba r-sacral spine 09/01/2009 hurts to bend over--no pa in in legs--no known injury callus Location on both feet 09/01/2009 knots to bottom of both f eet Advance Directives No Advance Directive data Encounters Encounter Performer Loca tion Codes Date ([id number]) OFFICE/OUTPA TIENT VISIT EST Diagnosis: Essential (primary) hypertension[ICD10: I10] Diagnosis: Encounter for therapeutic drug level monitoring[ICD10: Z51.81] Silvia ANDERS [facility] CPT-4: 78992 01/15/2019 ([id number]) OFFICE/OUTPA TIENT VISIT EST Diagnosis: Acute bronchitis, unspecified[ICD10: J20.9] Diagnosis: Acute recurrent maxillary sinusitis[ICD10: J01.01] Nicol ANDERS [facility] CPT-4: 91080 07/20/2018 ([id number]) NURSE/OUTPAT IENT VISIT EST Diagnosis: Encounter for general adult medical examination without abnormal findings[ICD10: Z00.00] Diagnosis: Mixed hyperlipidemia[ICD10: E78.2] Caren CEE [facility] CPT-4: 72298 06/29/2018 ([id number]) PREV VISIT E ST AGE 40-64 Diagnosis: Encounter for general adult medical examination without abnormal findings[ICD10: Z00.00] Diagnosis: Encounter for screening mammogram for malignant neoplasm of breast[ICD10: Z12.31] Diagnosis: Essential (primary) hypertension[ICD10: I10] Diagnosis: Migraine with aura, not intractable, without status migrainosus[ICD10: G43.109] Diagnosis: VACCINE FOR TDAP[ICD10: Z23] Caren [facility] CPT-4: 58020 06/11/2018 ([id number]) PREV VISIT E AGE 40-64 Diagnosis: Encounter for general adult medical examination without abnormal findings[ICD10: Z00.00] Diagnosis: Encounter for gynecological examination (general) (routine) without abnormal findings[ICD10: Z01.419] Diagnosis: Encounter for screening mammogram for malignant neoplasm of breast[ICD10: Z12.31] Diagnosis: Essential (primary) hypertension[ICD10: I10] Diagnosis: Mixed hyperlipidemia[ICD10: E78.2] Diagnosis: Persistent migraine 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 cerebral infarction, intractable, with status migrainosus[ICD10: G43.511] Diagnosis: Pain in unspecified joint[ICD10: M25.50] Caren CEE [facility] CPT-4: 29895 04/05/2017 ([id number]) OFFICE/OUTPA TIENT VISIT EST Diagnosis: Acute upper respiratory infection, unspecified[ICD10: J06.9] Diagnosis: Acute maxillary sinusitis, unspecified[ICD10: J01.00] Chiara ANDERS [facility] CPT-4: 90813 02/12/2016 ([id number]) OFFICE/OUTPA TIENT VISIT EST Diagnosis: Acute upper respiratory infection, unspecified[ICD10: J06.9] Diagnosis: Acute maxillary sinusitis, unspecified[ICD10: J01.00] Chiara ANDERS [facility] CPT-4: 23941 01/25/2016 ([id number]) OFFICE/OUTPA TIENT VISIT EST Diagnosis: Urinary tract infection, site not specified[ICD10: N39.0] Chiara COBIAN [facility] CPT-4: 49618 10/01/2015 ([id number]) PREV VISIT E ST AGE 40-64 Diagnosis: Encounter for gynecological examination (general) (routine) without abnormal findings[ICD10: Z01.419] Diagnosis: Encounter for general adult medical examination without abnormal findings[ICD10: Z00.00] Diagnosis: Migraine, unspecified, not intractable, without status migrainosus[ICD10: G43.909] Diagnosis: Essential (primary) hypertension[ICD10: I10] Caren GARBERLINE Evelyn ANN [facility] CPT-4: 86070 08/04/2015 ([id number]) OFFICE/OUTPA TIENT VISIT EST Diagnosis: Menopausal and female climacteric states[ICD10: N95.1] Diagnosis: Dysuria[ICD10: R30.0] Caren Chago GARBERLINE MpRajni ARANZA [facility] CPT-4: 05832 05/27/2015 OFFICE/OUTPATIENT SIT EST Diagnosis: Persistent migraine 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 cerebral infarction, intractable, with status migrainosus[ICD10: G43.511] Diagnosis: Unspecified convulsions[ICD10: R56.9] Caren Chago GARBERLINE Evelyn CEE [facility] CPT-4: 93514 03/10/2015 ([id number]) OFFICE/OUTPA TIENT VISIT EST Diagnosis: HYPERLIPIDEMIA NEC/NOS[ICD9: 272.4] Diagnosis: HYPERTENSION[ICD9: 401.9] Diagnosis: MALAISE AND FATIGUE[ICD9: 780.79] Diagnosis: ANEMIA NOS[ICD9: 285.9] Caren ANDERS [facility] CPT-4: 86608 07/29/2014 ([id number]) PREV VISIT E ST AGE 40-64 Diagnosis: ROUTINE MEDICAL EXAM[ICD9: V70.0] Diagnosis: HYPERTENSION[ICD9: 401.9] Diagnosis: MIGRAINE NOS/NOT INTRCBL[ICD9: 346.90] Diagnosis: GERD[ICD9: 530.81] Caren ANDERS [facility] CPT-4: 12759 06/30/2014 ([id number]) OFFICE/OUTPA TIENT VISIT EST Diagnosis: ALLERGIC RHINITIS[ICD9: 477.9] Diagnosis: DERMATITIS NOS[ICD9: 692.9] Caren [facility] CPT-4: 39541 08/12/2013 OFFICE/OUTPATIENT SIT EST Diagnosis: HEMATURIA NOS[ICD9: 599.70] Diagnosis: COUGH[ICD9: 786.2] Diagnosis: BRONCHITIS, ACUTE[ICD9: 466.0] Diagnosis: URINARY TRACT INFECTION[ICD9: 599.0] Lyndsey MichelleJennaamerica GARBERMOSHE Rivas Obed NBA [facility] CPT-4: 17069 05/31/2013 OFFICE/OUTPATIENT SIT EST Diagnosis: COUGH[ICD9: 786.2] Diagnosis: SINUSITIS, ACUTE[ICD9: 461.9] Diagnosis: FEBRILE ILLNESS[ICD9: 780.60] Lyndsey MichelleJennaamerica GreshamRajni CHAGO [facility] CPT-4: 57136 05/27/2013 ([id number]) OFFICE/OUTPA TIENT VISIT EST Diagnosis: DERMATITIS NOS[ICD9: 692.9] Diagnosis: Tinea cruris[ICD9: 110.3] Caren [facility]ajni [facility] CPT-4: 08534 02/26/2013 OFFICE/OUTPATIENT SIT EST Diagnosis: Rash[ICD9: 782.1] Anni Mika CAREN MpRajni CHAGO [facility] CPT-4: 67262 11/29/2012 OFFICE/OUTPATIENT SIT EST Diagnosis: COUGH[ICD9: 786.2] Diagnosis: SINUSITIS, ACUTE[ICD9: 461.9] Diagnosis: PHARYNGITIS, ACUTE[ICD9: 462] Caren GreshamRajni CHAGO [facility] CPT-4: 67750 11/12/2012 OFFICE/OUTPATIENT SIT EST Diagnosis: COUGH[ICD9: 786.2] Diagnosis: SINUSITIS, ACUTE[ICD9: 461.9] Diagnosis: Myalgia[ICD9: 729.1] Caren Chago GARBERLINE MpRajni CHAGO [facility] CPT-4: 81337 07/30/2012 ([id number]) OFFICE/OUTPA TIENT VISIT EST Diagnosis: JOINT PAIN-UNSPEC[ICD9: 719.40] Diagnosis: Rash and nonspecific skin eruption[ICD9: 782.1] Caren Robertchandrikacara GARBERCAREN MpRajni ROBERT CEE [facility] CPT-4: 89051 06/05/2012 OFFICE/OUTPATIENT SIT EST Diagnosis: Rash[ICD9: 782.1] Diagnosis: Joint pain[ICD9: 719.40] Caren GARBERLINE MpRajni CHAGO [facility] CPT-4: 29595 06/04/2012 ([id number]) PREV VISIT E ST AGE 40-64 Diagnosis: ROUTINE GYNE EXAM[ICD9: V72.31] Diagnosis: ROUTINE MEDICAL EXAM[ICD9: V70.0] Diagnosis: MIGRAINE NOS/NOT INTRCBL[ICD9: 346.90] Caren Chago GARBERLINE MpRajni ROBERT CEE [facility] CPT-4: 90884 12/21/2011 OFFICE/OUTPATIENT SIT EST Diagnosis: Hemorrhoid[ICD9: 455.6] Diagnosis: Constipation[ICD9: 564.00] Diagnosis: Rash[ICD9: 782.1] Caren Chago ACEVESQUELINE MpRajni CHAGO [facility] CPT-4: 93418 10/07/2011 OFFICE/OUTPATIENT SIT EST Diagnosis: HYPERTENSION[ICD9: 401.9] Diagnosis: MIGRAINE NOS/NOT INTRCBL[ICD9: 346.90] Diagnosis: DIZZINESS/VERTIGO[ICD9: 780.4] Diagnosis: EUSTACHIAN TUBE DYSFUNCTION[ICD9: 381.81] Diagnosis: Plantar warts[ICD9: 078.12] Caren ANDERS DO [facility] CPT-4: 69778 09/05/2011 OFFICE/OUTPATIENT SIT EST Diagnosis: SINUSITIS, ACUTE[ICD9: 461.9] Diagnosis: COUGH[ICD9: 786.2] Diagnosis: PHARYNGITIS, ACUTE[ICD9: 462] Diagnosis: DIARRHEA[ICD9: 787.91] Caren ANDERS DO [facility] CPT-4: 71015 04/28/2011 OFFICE/OUTPATIENT SIT EST Diagnosis: Finger pain[ICD9: 729.5] Diagnosis: Nasal pain[ICD9: 478.19] Diagnosis: MIGRAINE NOS/NOT INTRCBL[ICD9: 346.90] Diagnosis: Metrorrhagia[ICD9: 626.6] Caren GARBERLINE Evelyn ANDERS [facility] CPT-4: 89588 04/13/2011 OFFICE/OUTPATIENT SIT EST Diagnosis: Frequent urination[ICD9: 788.41] Caren GARBERLINE Evelyn ANDERS DO [facility] CPT-4: 37683 02/04/2011 PREV VISIT EST AGE 4 0-64 Anni Mika CHAUDHARY Evelyn ANDERS DO [facility] CPT-4: 20556 12/06/2010 SPECIMEN HANDLING Anni CHAUDHARY MpRajni CHAGO [facility] CPT-4: 41272 12/06/2010 ([id number]) OFFICE/OUTPA TIENT VISIT, EST Caren ANNR DO [facility] CPT-4: 85001 04/14/2010 ([id number]) OFFICE/OUTPA TIENT VISIT, EST Carenkarolina GreshamRajni ROBERT ANNR DO [facility] CPT-4: 46939 02/16/2010 ([id number]) OFFICE/OUTPA TIENT VISIT, EST Carenkarolina Anders CAREN SRajni ROBERT ANNR DO [facility] CPT-4: 35071 02/03/2010 ([id number]) OFFICE/OUTPA TIENT VISIT, EST Caren [facility] CPT-4: 44588 01/27/2010 ([id number]) OFFICE/OUTPA TIENT VISIT, EST Caren [facility] CPT-4: 80137 01/25/2010 ([id number]) PREV VISIT, EST, AGE 40-64 Anni [facility] CPT-4: 73783 12/08/2009 ([id number]) OFFICE/OUTPA TIENT VISIT, EST Caren [facility] CPT-4: [id number] 09/01/2009 Plan of Care Planned Activity Notes C odes Status Date Visit Diagnosis Plan: Essential (primary) hypertension Discussion: stable on current medications. rtc 6 months for annual or sooner if needed. will recheck labs at annual. ICD-9 : 401.9 ICD-10 : I10 01/15/2019 Appointment: Silvia Ramírez 504 [facility] FOLLOW UP 01/15/2019 Patient Education: High Blood Pressure Completed 01/15/2019 Visit Diagnosis Plan: Acute bronchitis, unspecified Discussion: Prednisone and zpack- take as directed. Moist air- humidifier. Avoid hot, dry air. Fluids and rest encouraged. Albuterol inhaler as needed for shortness of breath. FU with worsening symptoms or no improvement following treatment regimen. Patient states understanding of all instruction. ICD-9 : 466.0 ICD-10 : J20.9 07/20/2018 [facility]ment[facility] 07/20/2018 Patient Education: prednisone- OptimizeRX Coupon [phone] Completed 07/20/2018 Patient Education: [facility] - Saving Chad - Ventolin HFA - 18-64 - Dynamic Portal ID Completed 07/20/2018 Patient Education: azithromycin- Optimize[employer] Coupon [phone] Completed 07/20/2018 Appointment: Caren Anders WPtel: [phone] [facility] 06/29/2018 Visit Diagnosis Plan: [...] Discussion: Will return in 2 weeks for fasting lab Tdap given Will check on Shingrix Mediterranean diet with combo cardio/weight bearing exercise ICD-9 : V70.9 ICD-10 : Z00.00 06/11/2018 Appointment: Caren Anders WPtel: [phone] Annual Well Visit 06/11/2018 Patient Education: Valtrex- Optimize[employer] Coupon [id number] Completed 06/11/2018 Patient Education: mupirocin calcium- Op timizeRX Coupon [id number] Completed 06/11/2018 Visit Diagnosis Plan: Encounter for [...] abnormal findings Discussion: Fating lab drawn Update colonoscopy ICD-9 : V70.9 ICD-10 : Z00.00 04/05/2017 Appointment: Caren Anders WPtel: [phone] [place] [id number] Annual Well Visit 04/05/2017 Patient Education: Patient Medication Summary Completed 04/05/2017 Care Plan: Referral Order SNOMED-CT : [id number] Pending 04/05/2017 Patient Education: Patient Medication Summary Completed 08/02/2016 Care Plan: MAMMOGRAM SCREENING LOINC : 58608-4 Pending 08/02/2016 Visit Plan: Injection as above Rx f or levaquin - pt reports she tolerates well Continue supportive care Follow up PRN 02/12/2016 Visit Plan: Injection as above Rx f or levaquin - pt reports she tolerates well Continue supportive care Follow up PRN 02/12/2016 Visit Plan: Injection as above Rx f or levaquin - pt reports she tolerates well Continue supportive care Follow up PRN 02/12/2016 Appointment: Chiara Phelan 2305 [facility] 02/10 confirmed~ ACUTE ILLNESS 02/12/2016 Patient Education: Patient Medication Summary Completed 02/12/2016 Visit Plan: Rxs as above OTC meds r eviewed - avoid decongestants Rest, fluids, vicks, humidifier, etc Follow up PRN 01/25/2016 Visit Plan: Rxs as above OTC meds r eviewed - avoid decongestants Rest, fluids, vicks, humidifier, etc Follow up PRN 01/25/2016 Appointment: Chiara Phelan 2[address] [facility] ACUTE ILLNESS 01/25/2016 Patient Education: Patient Medication Summary Completed 01/25/2016 Visit Plan: Office dip abnormal Cul ture pending Rx as above Supportive care reviewed Follow up PRN 10/01/2015 Visit Plan: Office dip abnormal Cul ture pending Rx as above Supportive care reviewed Follow up PRN 10/01/2015 Visit Plan: Office dip abnormal Cul ture pending Rx as above Supportive care reviewed Follow up PRN 10/01/2015 Appointment: Chiara Phelan [address] [place], [place] [id number] ACUTE ILLNESS 10/01/2015 Patient Education: Patient Medication Summary Completed 10/01/2015 Visit Plan: Obtain lab results Pap done Mammogram ordered Patient awaiting on Dr. Cuello to restart botox for migraines 08/04/2015 Appointment: Caren Anders WPtel: [address] [place], [place] [phone] 08/02confirmed-sp Annual Well Visit 08/04/2015 Patient Education: Patient Medication Summary Completed 08/04/2015 Care Plan: MAMMOGRAM SCREENING LOINC : 50267-9 Ordered 08/04/2015 Patient Education: Patient Medication Summary Completed 07/29/2015 Care Plan: CBC Ordered 07/29/2015 Visit Plan: Discussed likely perime nopause Will observe through July and then at [facility] with fasting lab including hormone levels If bleeding returns will proceed with pelvic US Check into chiropractor for ma nipulation for right low back/hip pain 05/27/2015 Visit Plan: Discussed likely perime nopause Will observe through July and fwup then at E with fasting lab including hormone levels If bleeding returns will proceed with pelvic US Check into chiropractor for ma nipulation for right low back/hip pain 05/27/2015 Appointment: Caren Anders WPtel: [address] [place], [place] [phone] 05/26/15 [facility] 05/26/15 appt confirmed c n ACUTE ILLNESS 05/27/19 Patient Education: Patient Medication Summary Completed 05/27/2015 Referral: Ignacio Esposito WPtel: [facility] [address] [id number] [place] Referral Initiated 04/07/2015 Referral: Caren Anders WPtel: [address] [place], [place] [phone] 03/26/15 Arrival time 9:30 am Procedure 9:45 am. @ [facility] [address] [place] [address] Matthew 307 Come sleep deprived(4 hours or less) clean hair, no product in hair, no caffeen Initiated 03/26/2015 Visit Plan: Toradol now with compaz ine po when gets home Proceed with updated EEG/neurology evaluation--discussed may need to go on antiseizure meds and drop out of migraine study No driving for 6mos Discussed w ith Dr. Cuello at [facility] in [place]--he wants to see her in next 1-2weeks 03/10/2015 Appointment: Caren Anders WPtel: [phone] [facility] ACUTE ILLNESS 03/10/2015 Patient Education: Patient Medication Summary Completed 03/10/2015 Appointment: Caren Anders WPtel: [address] [place], [place] [phone] LAB 07/29/2014 Patient Education: Patient Medication Summary Completed 07/29/2014 Visit Plan: Check Fasting lab Mammo gram ordered Pap next year Lamisil for 3mos with monthly LFTs 06/30/2014 Appointment: Caren Anders WPtel: [address] [place] [address] Annual Well Visit 06/30/2014 Patient Education: Patient Medication Summary Completed 06/30/2014 Appointment: Caren Anders WPtel: [address] [place] [address] Annual Well Visit 06/18/2014 Appointment: Caren Anders WPtel: [address] [place] [address] ACUTE ILLNESS 06/03/2014 Appointment: Lyndsey Thorpe WPtel: [address] [place], [place] [id number] 02/05 ACUTE ILLNESS 02/06/2014 Visit Plan: Benadryl 25mg q HS Clar itin 10mg q AM Prednisone for 1week Call in 1week on cough and rash 08/12/2013 Appointment: Caren Anders WPtel: [address] [place] [address] 08/09 FOLLOW UP 08/12/2013 Patient Education: Patient Medication Summary Completed 08/12/2013 Visit Plan: To [facility] for CXR PA and Lateral Added Macrobid to current antibiotics. Recommended referal to Dr Alejo's office for resistant UTI's 05/31/2013 Appointment: Lyndsey Thorpe WPtel: [address] [place] [address] ACUTE ILLNESS 05/31/2013 Patient Education: Patient Medication Summary Completed 05/31/2013 Visit Plan: Kenalog 40 mg / Depo Me droll 40 mg IM now Complete antibiotics. 05/27/2013 Appointment: Lyndsey Thorpe WPtel: [address] [place], [place] [address] ACUTE ILLNESS 05/27/2013 Patient Education: Patient Medication Summary Completed 05/27/2013 Visit Plan: Lamisil for 3mos Nystat in/TAC topically Check fasting lab 02/26/2013 Appointment: Caren Anders WPtel: [address] [place], [place] [phone] 02/25 ACUTE ILLNESS 02/26/2013 Patient Education: Patient Medication Summary Completed 02/26/2013 Visit Plan: Reports that rash has b een present in one form or another since the beginning of the year. Reports that betamethasone has been helpful in October. Possible dermatology consult if no improvment. Diflucan. N ystatin powder and will use betamethasone also. (Recently finished a round of antibiotics for Mycoplasma infection) 11/29/2012 Appointment: Anni Brennan WPtel: [address] [place], [place] [id number] FOLLOW UP 11/29/2012 Patient Education: Patient Medication Summary Completed 11/29/2012 Visit Plan: CBC and mycoplasma lab draw. Levaquin and medrol dose pack with codeine/guiaf cough syrup. 11/12/2012 Appointment: Anni Brennan WPtel: [address] [place], [place] [id number] ACUTE ILLNESS 11/12/2012 Patient Education: Patient Medication Summary Completed 11/12/2012 Visit Plan: Azithromyacin and medro l dose pack. Will focus on hydration and rest. Pt. will notify if symptoms worsen or do not improve. 07/30/2012 Appointment: Anni Brennan WPtel: [address] [place], [place] [address] ACUTE ILLNESS 07/30/2012 Patient Education: Patient Medication Summary Completed 07/30/2012 Appointment: Caren Anders WPtel: [address] [place], [place] [phone] US LAB 06/05/2012 Patient Education: Patient Medication Summary Completed 06/05/2012 Visit Plan: fsating lab: CBC, CMP, TSH, Free T4 and Lipid with FERDINAND and RA. Nystatin to rash. Written RX for Medrol dose pack. Discussed that pt. will notify if no improvement with topical Nystatin. Pt. will use Kevin adryl at bedtime and cool pack to help refrain from scratching. 06/04/2012 Appointment: Anni Brennan WPtel: [address] [place] [address] ACUTE ILLNESS 06/04/2012 Patient Education: Patient Medication Summary Completed 06/04/2012 Visit Plan: Pap done Mammo ordered Pt has started botox for Migraines--next shots end of this month Fasting lab in 12/21/2011 Appointment: Caren Anders WPtel: [address] [place] [address] PAP 12/21/2011 Patient Education: Patient Medication Summary Completed 12/21/2011 Visit Plan: Encouraged fluids and c ontinued use of stool softener. Pt. reports long standing concerns with constipation. Discussed that will likely proceed with colonoscopy. Referral to Dr. Long. Will apply beta methasone to rash and use rectal foam and topical dibucaine. 10/07/2011 Appointment: Anni Brennan WPtel: [address] [place] [address] ACUTE ILLNESS 10/07/2011 Patient Education: Patient Medication Summary Completed 10/07/2011 Visit Plan: Lisinopril 1/2 in AM an d Atenolol 1/2 pm for 5 days then stop lisinopril and increase atenolol to 25mg q PM Check 2-D Echo 09/05/2011 Visit Plan: Lisinopril 1/2 in AM an d Atenolol 1/2 pm for 5 days then stop lisinopril and increase atenolol to 25mg q PM Check 2-D Echo Long discusssion about Botox and clinical trial Start omnaris q HS Pt will try otc wart remover for feet for now 09/05/2011 Appointment: Caren Anders WPtel: [facility][note 3][address] [place] [address] FOLLOW UP 09/05/2011 Patient Education: Patient Medication Summary Completed 09/05/2011 Visit Plan: imodium. Discussed the importance of hydration. Phoned Cefuroxime and codeine/guiaf into [facility]. Pt. will notify if symptoms worsen. 04/28/2011 Appointment: Anni Brennan WPtel: [address] [place] [address] ACUTE ILLNESS 04/28/2011 Patient Education: Patient Medication Summary Completed 04/28/2011 Visit Plan: Use Aleve BID Observe n ose and finger Check Chem 7, estradiol, FSH, LH, TSH 04/13/2011 Appointment: Caren Anders WPtel: [address] [place] [address] ACUTE ILLNESS 04/13/2011 Patient Education: Patient Medication Summary Completed 04/13/2011 Visit Plan: Septra ds. and Pyridium . Urine sent for culture. Pt. will be notified of culture results. Pt will notify if symptoms are worsening. Will consider lab and imaging studies if symptoms worsen. 02/04/2011 Appointment: Anni Brennan WPtel: [address] [place] [address] ACUTE ILLNESS 02/04/2011 Patient Education: Patient Medication Summary Completed 02/04/2011 Appointment: Caren Anders WPtel: [address] [place] [address] LAB 12/21/2010 Patient Education: Patient Medication Summary Completed 12/21/2010 Visit Plan: Dec 13. appnt with [facility]. will ask about EEG at next appnt. Fasting labs: CBC, CMP, TSH, Free T4 and Lipids. Discussed slight discoloration above rt. eyebrow. Will consider surgical refer ral if area does not resolve. Mammo scheduled. 12/06/2010 Appointment: Anni Brennan WPtel: [address] [place], [place] [address] PAP 12/06/2010 Patient Education: Patient Medication Summary Completed 12/06/2010 Visit Plan: Continue elavil but swi tch to bedtime See if headaches improve once start CPAP Increase stool softener to 2 po BID and add Magnesium Don't think need to proceed with colonoscopy at this time since const ipation is side effect of elavil and pt not having bleeding and no family history of colon cancer 04/14/2010 Appointment: Caren Anders WPtel: [address] [place], [place] [phone] FOLLOW UP 04/14/2010 Patient Education: Patient Medication Summary Completed 04/14/2010 Appointment: Caren Anders WPtel: [address] [place], [place] [phone] US LAB 03/17/2010 Visit Plan: Increase Topamax to 50m g BID Cont Flexeril See Neurology next week 02/16/2010 Appointment: Caren Anders WPtel: [address] [place], [place] [phone] FOLLOW UP 02/16/2010 Patient Education: Patient Medication Summary Completed 02/16/2010 Visit Plan: Pt will seek re-eval if symptoms worsen. 02/03/2010 Appointment: Anni Brennan WPtel: [address] [place] [address] ACUTE ILLNESS 02/03/2010 Patient Education: Patient Medication Summary Completed 02/03/2010 Visit Plan: Start Topamax for proph ylaxis See Neurology Discussed triggers such as chocolate Start Cipro as ordered May try Midrin and Compazine as ordered Off work rest of week 01/27/2010 Appointment: Caren Anders WPtel: [address] [place], [place] [phone] ER Follow UP 01/27/2010 Patient Education: Patient Medication Summary Completed 01/27/2010 Visit Plan: Check CT head Suspect c omplex migraine vs TIA--esequiel await CT results 01/25/2010 Appointment: Caren Anders WPtel: [address] [place], [place] [phone] ACUTE ILLNESS 01/25/2010 Patient Education: Patient Medication Summary Completed 01/25/2010 Appointment: Caren Anders WPtel: [address] [place], [place] [phone] US LAB 12/09/2009 Patient Education: Patient Medication Summary Completed 12/09/2009 Visit Plan: Claudia will come in [facility] for Lipids, CBC, CMP and TSH. Mammo is scheduled with [facility]. 12/08/2009 Appointment: Anni Brennan WPtel: [phone] [facility] US PAP 12/08/2009 Patient Education: Patient Medication Summary Completed 12/08/2009 Visit Plan: Add Macrobid Toradol gi weston Zipsor 25mg QID for 5 days OMT done Call in 2days on back 09/01/2009 Appointment: Caren Anders WPtel: [address] [place], [place] [id number] ACUTE ILLNESS 09/01/2009 Patient Education: Patient Medication Summary Completed 09/01/2009 Appointment: Caren Anders WPtel: 2303 [facility] US LAB 08/26/2009 Patient Education: Patient Medication Summary Completed 08/26/2009 Referral: Partha Long WPtel: [address] [id number] US Referral sent. Dr. Coburn's office will call patient to schedule. Completed Instructions Comment . Pap done Mammo ordered Pt has started botox for Migraines--next shots end of this month Fasting lab in April . Check CT head Suspect complex migraine vs TIA--esequiel await CT results . Toradol now with c ompazine po when gets home Proceed with updated EEG/neurology evaluation--discussed may need to go on antiseizure meds and drop out of migraine study No driving for 6mos Discussed with Dr. Cuello at [facility] in [place]--he wants to see her in next 1-2weeks . Increase Topamax t o 50mg BID Cont Flexeril See Neurology next week . Office dip abnorma l Culture pending Rx as above Supportive care reviewed Follow up PRN . Office dip abnorma l Culture pending Rx as above Supportive care reviewed Follow up PRN . Start Topamax for prophylaxis See Neurology Discussed triggers such as chocolate Start Cipro as ordered May try Midrin and Compazine as ordered Off work rest of week . imodium. Discusse d the importance of hydration. Phoned Cefuroxime and codeine/guiaf into [facility]. Pt. will notify if symptoms worsen. . Rxs as above OTC meds reviewed - avoid decongestants Rest, fluids, vicks, humidifier, etc Follow up PRN . Rxs as above OTC meds reviewed - avoid decongestants Rest, fluids, vicks, humidifier, etc Follow up PRN . Pt will seek re-ev al if symptoms worsen. . Discussed likely p erimenopause Will observe through July and then at [facility] with fasting lab including hormone levels If bleeding returns will proceed with pelvic US Check into chiropractor for manipulation for right low back/hip pain . Use Aleve BID Observe nose and finger Check Chem 7, estradiol, FSH, LH, TSH . Reports that rash has been present in one form or another since the beginning of the year. Reports that betamethasone has been helpful in October. Possible dermatology consult if no improvment. Diflucan. Nystatin powder and will use betamethasone also. (Recently finished a round of antibiotics for Mycoplasma infection) . Discussed likely p erimenopause Will observe through July and then at [facility] with fasting lab including hormone levels If bleeding returns will proceed with pelvic US Check into chiropractor for manipulation for right low back/hip pain . To [facility] fo r CXR PA and Lateral Added Macrobid to current antibiotics. Recommended referal to Dr Alejo's office for resistant UTI's . Lisinopril 1/2 in AM and Atenolol 1/2 pm for 5 days then stop lisinopril and increase atenolol to 25mg q PM Check 2-D Echo . Obtain lab results Pap done Mammogram ordered Patient awaiting on Dr. Cuello to restart botox for migraines . Dec 13. appnt [facility] headache specialist. will ask about EEG at next appnt. Fasting labs: CBC, CMP, TSH, Free T4 and Lipids. Discussed slight discoloration above rt. eyebrow. Will consider surgical referral if area does not resolve. Mammo scheduled. . Office dip abnorma l Culture pending Rx as above Supportive care reviewed Follow up PRN . Continue elavil bu t switch to bedtime See if headaches improve once start CPAP Increase stool softener to 2 po BID and add Magnesium Don't think need to proceed with colonoscopy at this time since constipation is side effect of elavil and pt not having bleeding and no family history of colon cancer . Claudia will come i n fasting for Lipids, CBC, CMP and TSH. Mammo is scheduled with [facility]. . Add Macrobid Toradol given Zipsor 25mg QID for 5 days OMT done Call in 2days on back . Injection as above Rx for levaquin - pt reports she tolerates well Continue supportive care Follow up PRN . Injection as above Rx for levaquin - pt reports she tolerates well Continue supportive care Follow up PRN . Injection as above Rx for levaquin - pt reports she tolerates well Continue supportive care Follow up PRN . CBC and mycoplasma lab draw. Levaquin and medrol dose pack with codeine/guiaf cough syrup. . fsating lab: CBC, CMP, TSH, Free T4 and Lipid with FERDINAND and RA. Nystatin to rash. Written RX for Medrol dose pack. Discussed that pt. will notify if no improvement with topical Nystatin. Pt. will use Benadryl at bedtime and cool pack to help refrain from scratching. . Lisinopril 1/2 in AM and Atenolol 1/2 pm for 5 days then stop lisinopril and increase atenolol to 25mg q PM Check 2-D Echo Long discusssion about Botox and clinical trial Start omnaris q HS Pt will try otc wart remover for feet for now . Lamisil for 3mos Nystatin/TAC topically Check fasting lab . Benadryl 25mg q HS Claritin 10mg q AM Prednisone for 1week Call in 1week on cough and rash . Kenalog 40 mg / De po Medroll 40 mg IM now Complete antibiotics. . Septra ds. and Py ridium. Urine sent for culture. Pt. will be notified of culture results. Pt will notify if symptoms are worsening. Will consider lab and imaging studies if symptoms worsen. . Check Fasting lab Mammogram ordered Pap next year Lamisil for 3mos with monthly LFTs . Azithromyacin and medrol dose pack. Will focus on hydration and rest. Pt. will notify if symptoms worsen or do not improve. . Encouraged fluids and continued use of stool softener. Pt. reports long standing concerns with constipation. Discussed that will likely proceed with colonoscopy. Referral to Dr. Long. Will apply betamethasone to rash and use rectal foam and topical dibucaine.
--- OUTSIDE RECORDS SUMMARY | 2019-10-11 18:37 | XMS REPORT | CCD ---
Author Author Claudia Anders D.O. Organization [facility] Address [address] [place] [address] Phone Care Team Providers Care Book Editor Name Role Phone Caren Anders D.O., PP Unavailable CCM Unavailable Summary Purpose Interface Exchange Insurance Providers Payer name Policy type / Coverage type Covered democrat ID Effective Begin Date Effective End Date Blue Cross Blue Shield Blue Cross/Bl ue Shield [id number] Un known Family history Father Diagnosis Age At Onset Congestive heart failure Unknown Cancer Unknown Diabetes mellitus Type 2 Unknown Social History Social History Element Codes Description Effective Dates Tobacco history SNOMED CT: 9080642 Former smoker 02/03/2015 Allergies, Adverse Reactions, Alerts [...] Date Stop Date Sta tus Fill Instructions Zantac 300 mg tablet RxNorm: 863371 TAKE ONE TABLET BY MOUTH EVERY NIGHT AT BEDTIME 01/15/2019 03/15/2019 Active atenolol 25 mg tablet RxNorm: 334057 Tablet(s) TAKE ONE TABLET BY MOUTH DAILY , NEEDS APPT. BEFORE FURTHER REFILLS 01/08/2019 02/06/2019 Active atenolol 25 mg tablet RxNorm: 756930 Tablet(s) TAKE ONE TABLET BY MOUTH DAILY , NEEDS APPT. BEFORE FURTHER REFILLS 12/31/2018 01/07/2019 Inactive atenolol 25 mg tablet RxNorm: 294701 TAKE ONE TABLET BY MOUTH DAILY, NEEDS AP PT. BEFORE FURTHER REFILLS 12/14/2018 12/31/2018 Inactive tizanidine 4 mg tablet RxNorm: 266008 TAKE ONE TABLET BY MOUTH EVERY 8 HOURS A S NEEDED FOR MUSCLE SPASMS 11/16/2018 12/25/2018 Inactive Naprosyn 500 mg tablet RxNorm: 425134 1 Tablet(s) PO BID 10/01/2018 01/28/2019 Active Maxalt 10 mg tablet RxNorm: 133023 1 Tablet(s) PO at headache onset. May re peat in 2 hours if headache remains. Max of 2/24hr 10/01/2018 11/29/2018 Inactive atenolol 25 mg tablet RxNorm: 238454 Tablet(s) TAKE ONE TABLET BY MOUTH DAILY . 10/01/2018 12/13/2018 In active atenolol 25 mg tablet RxNorm: 006945 TAKE ONE TABLET BY MOUTH DAILY. NEED APPOINTMENT BEFORE FURTHER REFILLS. 09/24/2018 09/30/2018 Inactive atenolol 25 mg tablet RxNorm: 410528 TAKE ONE TABLET BY MOUTH DAILY, NEEDS AP PT. BEFORE FURTHER REFILLS 09/11/2018 09/23/2018 Inactive Naprosyn 500 mg tablet RxNorm: 495312 1 Tablet(s) PO BID Due for annual labs a nd appointment 09/11/2018 09/30/2018 Inactive atenolol 25 mg tablet RxNorm: 339460 TAKE ONE TABLET BY MOUTH DAILY, NEEDS AP PT. BEFORE FURTHER REFILLS 08/29/2018 09/10/2018 Inactive doxycycline hyclate 100 mg tablet RxNorm: 9789107 1 Tablet(s) PO BID 07/27/2018 08/05/2018 Inactive doxycycline hyclate 100 mg tablet RxNorm: 9415101 1 Tablet(s) PO BID 07/27/2018 07/26/2018 Inactive Ventolin HFA 90 mcg/ actuation aerosol inhaler RxNorm: 6730776 2 Puff(s) INH Q6H 07/20/2018 08/18/2018 In active prednisone 20 mg tablet RxNorm: 841979 take 2 tabs for 3 days, then 1 tab for 3 days 07/20/2018 07/25/2018 Inactive azithromycin 250 mg tablet RxNorm: 033125 Take 2 tabs today and one tab days 2-5 07/20/2018 07/25/2018 In active z-pack atenolol 25 mg tablet RxNorm: 317661 TAKE ONE TABLET BY MOUTH DAILY, NEEDS AP PT. BEFORE FURTHER REFILLS 07/13/2018 08/26/2018 Inactive mupirocin 2 % topica l cream RxNorm: 422161 Application TOP BID 06/11/2018 01/14/2019 Inactive Valtrex 1 gram tablet RxNorm: 160619 1 Tablet(s) PO BID 06/11/2018 06/20/2018 Inactive atenolol 25 mg tablet RxNorm: 559070 1 Tablet(s) PO QD NEEDS APPOINTMENT BEFO RE FURTHER REFILLS 05/14/2018 07/12/2018 Inactive Naprosyn 500 mg tablet RxNorm: 992078 1 Tablet(s) PO BID Due for annual labs a nd appointment 04/12/2018 05/11/2018 Inactive Zantac 300 mg tablet RxNorm: 471466 TAKE ONE TABLET BY MOUTH EVERY NIGHT AT BEDTIME 04/09/2018 07/07/2018 Inactive tizanidine 4 mg tablet RxNorm: 688491 TAKE ONE TABLET BY MOUTH EVERY 8 HOURS A S NEEDED FOR MUSCLE SPASMS 02/20/2018 04/20/2018 Inactive Maxalt 10 mg tablet RxNorm: 674718 Tablet(s) TAKE ONE TABLET BY MOUTH NE EDED FOR HEADACHE 01/09/2018 03/09/2018 Inactive Naprosyn 500 mg tablet RxNorm: 651771 Tablet(s) TAKE ONE TABLET BY MOUTH TWICE A DAY 01/08/2018 04/12/2018 Inactive atenolol 25 mg tablet RxNorm: 779460 1 Tablet(s) PO QD 01/08/2018 05/14/2018 Inactive Naprosyn 500 mg tablet RxNorm: 092735 TAKE ONE TABLET BY MOUTH TWICE A DAY 12/10/2017 01/08/2018 In active tizanidine 4 mg tablet RxNorm: 948222 1 Tablet(s) PO Q8H as needed for muscle spasm 11/27/2017 11/26/2017 Inactive Maxalt 10 mg tablet RxNorm: 439396 TAKE ONE TABLET BY MOUTH NEEDED FOR H EADACHE 11/13/2017 01/09/2018 Inactive Naprosyn 500 mg tablet RxNorm: 481089 TAKE ONE TABLET BY MOUTH TWICE A DAY 11/13/2017 12/09/2017 In active atenolol 25 mg tablet RxNorm: 674773 1 Tablet(s) PO QD 09/06/2017 01/08/2018 Inactive Naprosyn 500 mg tablet RxNorm: 077834 1 Tablet(s) PO BID 09/04/2017 11/02/2017 Inactive Maxalt 10 mg tablet RxNorm: 613553 1 Tablet(s) PO as needed for headache 08/07/2017 11/12/2017 In active Naprosyn 500 mg tablet RxNorm: 379661 1 Tablet(s) PO BID 07/07/2017 09/04/2017 Inactive Naprosyn 500 mg tablet RxNorm: 777892 1 Tablet(s) PO BID TAKE ONE TABLET BY MO UTH TWICE A DAY 06/08/2017 07/07/2017 Inactive tizanidine 4 mg tablet RxNorm: 813546 1 Tablet(s) PO Q8H as needed for muscle spasm 05/10/2017 11/27/2017 Inactive atenolol 25 mg tablet RxNorm: 238874 1 Tablet(s) PO QD 05/10/2017 09/06/2017 Inactive Maxalt 10 mg tablet RxNorm: 500454 1 Tablet(s) PO as needed for headache 05/10/2017 08/06/2017 In active atenolol 25 mg tablet RxNorm: 001986 1 Tablet(s) PO QD LAST REFILL---NEEDS UP DATED LAB AND APPOINTMENT 04/04/2017 05/03/2017 Inactive Zantac 300 mg tablet RxNorm: 812511 Tablet(s) TAKE ONE TABLET BY MOUTH EVERY NIGHT AT BEDTIME 04/03/2017 07/31/2017 Inactive atenolol 25 mg tablet RxNorm: 858840 1 Tablet(s) PO QD LAST REFILL---NEEDS UP DATED LAB AND APPOINTMENT 03/02/2017 04/04/2017 Inactive atenolol 25 mg tablet RxNorm: 612825 1 Tablet(s) PO QD LAST REFILL---NEEDS UP DATED LAB AND APPOINTMENT 02/01/2017 05/10/2017 Inactive Naprosyn 500 mg tablet RxNorm: 228717 1 Tablet(s) PO BID TAKE ONE TABLET BY MO UTH TWICE A DAY 01/02/2017 06/08/2017 Inactive atenolol 25 mg tablet RxNorm: 504153 1 Tablet(s) PO QD Need Labs and appointm ent 12/26/2016 02/01/2017 In active Naprosyn 500 mg tablet RxNorm: 580993 1 Tablet(s) PO BID [facility] 12/05/2016 01/02/2017 Inactive Naprosyn 500 mg tablet RxNorm: 257474 Tablet(s) TAKE ONE TABLET BY MOUTH TWICE A DAY 11/07/2016 12/05/2016 Inactive Naprosyn 500 mg tablet RxNorm: 106271 Tablet(s) TAKE ONE TABLET BY MOUTH TWICE A DAY 10/06/2016 11/07/2016 Inactive Naprosyn 500 mg tablet RxNorm: 472528 TAKE ONE TABLET BY MOUTH TWICE A DAY 09/04/2016 10/03/2016 In active Naprosyn 500 mg tablet RxNorm: 895670 TAKE ONE TABLET BY MOUTH TWICE A DAY 07/01/2016 08/29/2016 In active Naprosyn 500 mg tablet RxNorm: 792336 TAKE ONE TABLET BY MOUTH TWICE A DAY 04/27/2016 06/25/2016 In active Zantac 300 mg tablet RxNorm: 288107 TAKE ONE TABLET BY MOUTH EVERY NIGHT AT BEDTIME 03/09/2016 04/03/2017 Inactive Levaquin 500 mg tablet RxNorm: 400627 1 Tablet(s) PO QD 02/12/2016 02/18/2016 Inactive azithromycin 250 mg tablet RxNorm: 933621 2 Tablet(s) PO on day one then 1 tab on days 2-5 01/25/2016 01/24/2016 Inactive Medrol (Camilo) 4 mg ta blets in a dose pack RxNorm: 311828 Take as directed 01/25/2016 04/04/2017 In active Naprosyn 500 mg tablet RxNorm: 292958 1 Tablet(s) PO BID 01/15/2016 04/13/2016 Inactive Brisdelle 7.5 mg cap violeta RxNorm: 4811393 1 Capsule(s) PO QHS 12/10/2015 04/04/2017 Inactive atenolol 25 mg tablet RxNorm: 508060 TAKE ONE TABLET BY MOUTH DAILY 12/04/2015 12/26/2016 In active Maxalt 10 mg tablet RxNorm: 792501 1 Tablet(s) PO as needed for headache 10/05/2015 05/09/2017 In active Bactrim DS 800 mg-16 0 mg tablet RxNorm: 332626 1 Tablet(s) PO BID 10/01/2015 10/07/2015 Inactive Zantac 300 mg tablet RxNorm: 171734 Tablet(s) TAKE ONE TABLET BY MOUTH EVERY NIGHT AT BEDTIME 10/01/2015 11/29/2015 Inactive atenolol 25 mg tablet RxNorm: 047003 TAKE ONE TABLET BY MOUTH DAILY 06/09/2015 08/07/2015 In active Naprosyn 500 mg tablet RxNorm: 809171 TAKE ONE TABLET BY MOUTH TWICE A DAY 05/29/2015 01/15/2016 In active Zantac 300 mg tablet RxNorm: 050133 Tablet(s) TAKE ONE TABLET BY MOUTH EVERY NIGHT AT BEDTIME 03/30/2015 10/01/2015 Inactive Compazine 10 mg tablet RxNorm: 953654 1 Tablet(s) PO TID as needed for nausea 03/10/2015 05/26/2015 In active Prevacid 30 mg capsu le,delayed release RxNorm: 987191 Capsule(s) TAKE ONE C APSULE BY MOUTH ONCE A DAY 12/19/2014 05/17/2015 Inactive Naprosyn 500 mg tablet RxNorm: 671740 1 Tablet(s) PO BID 12/02/2014 03/01/2015 Inactive Zantac 300 mg tablet RxNorm: 950489 TAKE ONE TABLET BY MOUTH EVERY NIGHT AT BEDTIME 09/18/2014 03/30/2015 Inactive Naprosyn 500 mg tablet RxNorm: 750837 1 Tablet(s) PO BID 09/04/2014 12/02/2014 Inactive atenolol 25 mg tablet RxNorm: 086405 1 Tablet(s) PO QD 07/17/2014 03/09/2015 Inactive Zantac 300 mg tablet RxNorm: 033868 1 Tablet(s) PO QHS 06/30/2014 09/17/2014 Inactive Lamisil 250 mg tablet RxNorm: 354562 1 Tablet(s) PO QD 06/30/2014 09/27/2014 Inactive Treximet 85 mg-500 m g tablet RxNorm: 322635 Tablet(s) PO PRN as n eeded 06/30/2014 03/09/2015 In active Prevacid 30 mg capsu le,delayed release RxNorm: 456340 TAKE ONE CAPSULE BY M OUTH ONCE A DAY 06/16/2014 12/19/2014 Inactive Treximet 85 mg-500 m g tablet RxNorm: 153656 Tablet(s) PO PRN as n eeded 06/06/2014 06/29/2014 In active Pepcid 20 mg tablet RxNorm: 306880 1 Tablet(s) PO QHS 03/19/2014 06/29/2014 Inactive [SAVINGS FOR UNINSURED PATIENTS -- BIN:[id number], PCN: [id number], Group: [id number], ID# [id number], Process claim through [employer], for questions: . THIS IS NOT INSURANCE.] atenolol 25 mg tablet RxNorm: 219085 1 Tablet(s) PO QD 01/15/2014 07/17/2014 Inactive Pepcid 20 mg tablet RxNorm: 626811 1 Tablet(s) PO QHS 12/23/2013 12/22/2013 Inactive Pepcid 20 mg tablet RxNorm: 883748 1 Tablet(s) PO QHS 12/23/2013 03/19/2014 Inactive [SAVINGS FOR UNINSURED PATIENTS -- BIN:[id number], PCN: [id number], Group: [id number], ID# [id number], Process claim through [employer], for questions: . THIS IS NOT INSURANCE.] Prevacid 30 mg capsu le,delayed release RxNorm: 243279 1 Capsule(s) PO QD 12/23/2013 06/15/2014 In active [SAVINGS FOR UNINSURED PATIENTS -- BIN:0 43288, PCN: [id number], Group: [id number], ID# [id number], Process claim through [employer], for questions: . THIS IS NOT INSURANCE.] loratadine 10 mg tablet RxNorm: 927055 TAKE ONE TABLET BY MOUTH EVERY MORNING 09/09/2013 04/06/2014 In active nystatin-triamcinolo ne 100,000 unit/g-0.1 % topical cream RxNorm: 0139235 1 Application TOP QHS to rash 08/22/2013 06/29/2014 Inactive prednisone 20 mg tablet RxNorm: 892188 1 Tablet(s) PO BID 08/12/2013 08/18/2013 Inactive loratadine 10 mg tablet RxNorm: 069613 1 Tablet(s) PO QAM 08/12/2013 09/08/2013 Inactive Treximet 85 mg-500 m g tablet RxNorm: 262812 Tablet(s) PO PRN 07/22/2013 07/21/2013 Inactive atenolol 25 mg tablet RxNorm: 859873 1 Tablet(s) PO QD 07/22/2013 01/15/2014 Inactive Prevacid 30 mg capsu le,delayed release RxNorm: 220912 1 Capsule(s) PO BID 07/22/2013 12/22/2013 In active nitrofurantoin macro crystal 100 mg capsule RxNorm: 335136 1 Capsule(s) PO BID 05/31/2013 06/06/2013 In active albuterol sulfate HF A 90 mcg/actuation aerosol inhaler RxNorm: 476343 2 Puff(s) INH QID 05/31/2013 06/13/2013 Inactive azithromycin 250 mg tablet RxNorm: 313585 2 Tablet(s) PO QD 05/27/2013 06/02/2013 Inactive Prevacid 30 mg capsu le,delayed release RxNorm: 686921 1 Capsule(s) PO BID 03/20/2013 07/21/2013 In active Lamisil 250 mg tablet RxNorm: 462393 1 Tablet(s) PO QD 02/26/2013 05/26/2013 Inactive betamethasone eloy te 0.1 % Topical Cream RxNorm: 995561 1 Application TOP BID 11/29/2012 12/12/2012 In active Diflucan 100 mg tablet RxNorm: 419090 1 Tablet(s) PO QD 11/29/2012 12/08/2012 Inactive nystatin 100,000 uni t/gram Topical Powder RxNorm: 693164 1 Gram(s) TOP BID belinda ly to affected areas twice daily 11/29/2012 12/08/2012 Inactive Medrol (Camilo) 4 mg ta blets in a dose pack RxNorm: 803467 Tablet(s) PO as direc nico 11/12/2012 02/25/2013 In active Levaquin 750 mg tablet RxNorm: 724882 1 Tablet(s) PO QD antibiotic 11/12/2012 11/21/2012 Inactive Prevacid 30 mg capsu le,delayed release RxNorm: 033505 1 Capsule(s) PO BID 09/17/2012 03/15/2013 In active azithromycin 250 mg tablet RxNorm: 271979 2 Tablet(s) PO QD 07/30/2012 08/06/2012 Inactive nystatin 100,000 uni t/g Ointment RxNorm: 263202 1 Gram(s) TOP BID belinda ly to affected area twice daily 06/21/2012 06/30/2012 Inactive nystatin 100,000 uni t/g Ointment RxNorm: 761213 1 Gram(s) TOP BID belinda ly to affected area twice daily 06/04/2012 06/13/2012 Inactive Prevacid 30 mg capsu le,delayed release RxNorm: 893198 1 Capsule(s) PO BID 03/01/2012 08/27/2012 In active Omnaris 50 mcg Nasal [place] RxNorm: 874471 2 [place] NASAL QD each nostril 12/21/2011 03/09/2015 In active betamethasone eloy te 0.1 % Topical Cream RxNorm: 102302 1 Application TOP BID 10/07/2011 10/20/2011 In active dibucaine 1 % Rectal Ointment RxNorm: 857499 1 RTL TID 10/07/2011 10/16/2011 Inactive Proctofoam 1 % Topic al Foam RxNorm: 385094 1 TOP BID 10/07/2011 10/16/2011 Inactive Treximet 85 mg-500 m g Tab RxNorm: 879472 Tablet(s) PO Take 1 a t headache onset and may repeat 1 in two hours if needed 09/05/2011 No Stop Date Active Prevacid 30 mg capsu le,delayed release RxNorm: 956115 1 Capsule(s) PO BID 08/30/2011 02/25/2012 In active Flexeril 5 mg tablet RxNorm: 397311 1-2 Tablet(s) PO QHS 08/05/2011 06/29/2014 Inactive prn spasm cefuroxime axetil 50 0 mg Tab RxNorm: 633268 1 Tablet(s) PO BID 04/28/2011 05/07/2011 Inactive Flexeril 5 mg Tab RxNorm: 305695 1-2 Tablet(s) PO QHS 04/20/2011 08/05/2011 Inactive prn spasm Prevacid 30 mg Capsu le, delayed release RxNorm: 306002 1 Capsule(s) PO BID 02/23/2011 08/30/2011 In active Prevacid 30 mg Cap RxNorm: 697856 1 Capsule(s) PO QD 02/21/2011 02/22/2011 Inactive Pyridium 100 mg Tab RxNorm: 7096386 1 Tablet(s) PO TID 02/04/2011 02/05/2011 Inactive will turn urine orange/red. Septra DS 800 mg-160 mg Tab RxNorm: 802202 1 Tablet(s) PO BID 02/04/2011 02/08/2011 Inactive lisinopril 10 mg Tab RxNorm: 449218 1 Tablet(s) PO QD 12/06/2010 01/04/2011 Inactive amitriptyline 10 mg Tab RxNorm: 967939 2 Tablet(s) PO QD 12/06/2010 01/04/2011 Inactive Treximet 85 mg-500 m g Tab RxNorm: 116347 1 Tablet(s) PO 12/02/2010 09/05/2011 Inactive at H A onset, may repeat i po in 2hrs if CHAUHAN remains lisinopril 20 mg Tab RxNorm: 260745 1 Tablet(s) PO QD 09/10/2010 12/06/2010 Inactive Prevacid 30 mg Cap RxNorm: 437140 1 Capsule(s) PO BID 08/09/2010 02/21/2011 Inactive Flexeril 5 mg Tab RxNorm: 190670 1-2 Tablet(s) PO QHS prn spasm 04/14/2010 04/20/2011 In active Topamax 50 mg Tab RxNorm: 462962 1 Tablet(s) PO BID 02/16/2010 04/13/2010 Inactive Topamax 50 mg Tab RxNorm: 272858 1/2 Tablet(s) PO QHS for 1wk then 1 po Q HS 02/15/2010 02/15/2010 In active Cefdinir 300 mg Cap RxNorm: 485333 1 Capsule(s) PO BID One tablet PO twice daily for 10 days. 02/03/2010 02/12/2010 Inactive Topamax 50 mg Tab RxNorm: 902627 1/2 Tablet(s) PO QHS for 1wk then 1 po Q HS 01/27/2010 02/14/2010 In active Flexeril 5 mg Tab RxNorm: 056636 1 Tablet(s) PO TID prn spasm 01/25/2010 02/15/2010 Inactive Macrobid 100 mg Cap RxNorm: 7215559 1 Capsule(s) PO BID 09/01/2009 09/07/2009 Inactive Prevacid 30 mg Cap RxNorm: 661154 1 Capsule(s) PO BID 09/01/2009 09/30/2009 Inactive Flexeril 5 mg Tab RxNorm: 141437 1 Tablet(s) PO TID prn spasm 09/01/2009 09/30/2009 Inactive lisinopril 20 mg Tab RxNorm: 561009 1 Tablet(s) PO QD 08/31/2009 09/10/2010 Inactive atenolol 25 mg Tab RxNorm: 360747 1 Tablet(s) PO QD No Start Date 07/30/2012 Inactive magnesium 100 mg tablet RxNorm: 1 Tablet(s) PO QD No Start Date Active Calcium with Vitamin D 600 mg-400 unit Tab RxNorm: 774542 1 Tablet(s) PO QD No Start Date Active Aspirin 81 mg Tab RxNorm: 901304 1 Tablet(s) PO QD No Start Date Active Brisdelle 7.5 mg cap violeta RxNorm: 5604406 1 Capsule(s) PO QHS No Start Date 12/09/2015 Inactive Prevacid 30 mg Cap RxNorm: 100086 1 Capsule(s) PO QD No Start Date 02/20/2011 Inactive Ultram 50 mg Tab RxNorm: 336591 2 Tablet(s) PO QID prn headache No Start Date 04/13/2010 Inactive tizanidine 4 mg tablet RxNorm: 984694 1 Tablet(s) PO Q8H as needed for muscle spasm No Start Date 05/09/2017 Inactive nystatin-triamcinolo ne 100,000 unit/g-0.1 % topical cream RxNorm: 4787984 1 Application TOP QHS to rash No Start Date 08/21/2013 Inactive Imitrex 100 mg tablet RxNorm: 177088 1 Tablet(s) PO at CHAUHAN onset-September repeat in 6hours as needed No Start Date 08/03/2015 Inactive Treximet 85 mg-500 m g Tab RxNorm: 119075 1 Tablet(s) PO at CHAUHAN onset, may repeat i po in 2hrs if CHAUHAN remains No Start Date 12/02/2010 Inactive alprazolam 0.25 mg t ablet RxNorm: 668214 1 Tablet(s) PO QPM No Start Date 08/03/2015 Inactive amitriptyline 25 mg Tab RxNorm: 119474 1 Tablet(s) PO QAM No Start Date 12/06/2010 Inactive amitriptyline 10 mg Tab RxNorm: 527401 Tablet(s) PO Take 4 tablets by mouth 1 w [place] before period and week of period and 3 tablets other 2 weeks of month No Start Date 09/04/2011 Inactive Omnaris 50 mcg Nasal [place] RxNorm: 340159 2 [place] NASAL QD each nostril No Start Date 12/20/2011 Inactive sertraline 25 mg tablet RxNorm: 654552 1 Tablet(s) PO QD No Start Date 08/03/2015 Inactive atenolol 25 mg tablet RxNorm: 574461 1 Tablet(s) PO QD No Start Date 07/21/2013 Inactive hydrochlorothiazide 25 mg tablet RxNorm: 270953 1 Tablet(s) PO QAM No Start Date 05/26/2015 Inactive Maxalt 10 mg tablet RxNorm: 807263 Tablet(s) PO as needed for headache No Start Date 10/04/2015 Inactive atenolol 25 mg Tab RxNorm: 627016 1/2 Tablet(s) PO QD No Start Date 12/20/2011 Inactive Medrol (Camilo) 4 mg ta blets in a dose pack RxNorm: 013446 Tablet(s) PO as direc nico No Start Date 11/11/2012 Inactive Naprosyn 500 mg tablet RxNorm: 242640 1 Tablet(s) PO BID No Start Date 09/04/2014 Inactive promethazine-codeine 6.25 mg-10 mg/5 mL syrup RxNorm: 594564 PO No Start Date 06/29/2014 Inactive Flexeril 5 mg Tab RxNorm: 987142 2 Tablet(s) PO QHS No Start Date 04/13/2010 Inactive Treximet 85 mg-500 m g tablet RxNorm: 841720 Tablet(s) PO PRN No Start Date 07/21/2013 Inactive cyclobenzaprine 5 mg tablet RxNorm: 582452 1-2 Tablet(s) PO QHS No Start Date 03/09/2015 Inactive atenolol 25 mg tablet RxNorm: 394016 1 Tablet(s) PO QD No Start Date 12/25/2016 Inactive lisinopril 20 mg Tab RxNorm: 346456 1 Tablet(s) PO QD No Start Date 10/06/2011 Inactive Topamax 50 mg Tab RxNorm: 384015 1 Tablet(s) PO BID No Start Date 02/15/2010 Inactive Treximet 85 mg-500 m g Tab RxNorm: 545585 Tablet(s) PO Take 1 a t headache onset and may repeat 1 in two hours if needed No Start Date 09/04/2011 Inactive Stool Softener 100 m g Cap RxNorm: 6653159 3 Capsule(s) PO QD No Start Date [...] Item Item Code Result Date COMPREHENSIVE METABOLIC 32980 AST 15 U/L 06/29/2018 COMPREHENSIVE METABOLIC 99844 ALT 15 U/L 06/29/2018 COMPREHENSIVE METABOLIC 38418 BUN 19 mg/dL 06/29/2018 COMPREHENSIVE METABOLIC 69937 ALBUMIN 4.3 g/dL 06/29/2018 COMPREHENSIVE METABOLIC 90419 CHLORIDE 106 mmol/L 06/29/2018 COMPREHENSIVE METABOLIC 30908 Bili Total 0.6 mg/dL 06/29/2018 COMPREHENSIVE METABOLIC 95630 ALK PHOS 82 U/L 06/29/2018 COMPREHENSIVE METABOLIC 44104 SODIUM 141 mmol/L 06/29/2018 COMPREHENSIVE METABOLIC 26942 CREATININE 0.66 mg/dL 06/29/2018 COMPREHENSIVE METABOLIC 52937 CALCIUM 9.6 mg/dL 06/29/2018 COMPREHENSIVE METABOLIC 16363 POTASSIUM 4.3 mmol/L 06/29/2018 COMPREHENSIVE METABOLIC 41079 Total Protein 7.0 g/dL 06/29/2018 COMPREHENSIVE METABOLIC 48068 Glucose 102 mg/dL 06/29/2018 COMPREHENSIVE METABOLIC 40550 Bicarbonate 29 mmol/L 06/29/2018 COMPREHENSIVE METABOLIC 06796 AGAP 6 mmol/L 06/29/2018 FREE T4 50555 T4 Free 1.04 ng/dL 06/29/2018 GFR CALC 7899057 GFR Non Afr Amr >60 mL/min 06/29/2018 GFR CALC 7145046 GFR Afr Amr >60 mL/min 06/29/2018 LIPID GROUP 52907 Choles terol 197 mg/dL 06/29/2018 LIPID GROUP 05119 Trigly ceride 70 mg/dL 06/29/2018 LIPID GROUP 62584 HDL CH OLESTEROL 45 mg/dL 06/29/2018 LIPID GROUP 65375 Chol/H DL Ratio 4.38 ratio 06/29/2018 LIPID GROUP 28942 NON-HD L Chol 152 mg/dL 06/29/2018 LIPID GROUP 38454 LDL Ch olesterol 138 mg/dL 06/29/2018 THYROID STIMULATING HORMONE 62113 TSH 1.477 uIU/mL 9 COMPLETE BLOOD COUNT 2974994 WBC 5.2 10e9/L 06/29/2018 COMPLETE BLOOD COUNT [id number] RBC 4.93 10e12/L 9 COMPLETE BLOOD COUNT 5933710 HEMOGLOBIN 14.3 g/dL 06/29/2018 COMPLETE BLOOD COUNT 5924911 HEMATOCRIT 42.9 % 06/29/2018 COMPLETE BLOOD COUNT 3469087 MCV 87.0 fL 06/29/2018 COMPLETE BLOOD COUNT [id number] MCH 29.0 pg 06/29/2018 COMPLETE BLOOD COUNT 1430534 MCHC 33.3 g/dL 06/29/2018 COMPLETE BLOOD COUNT 4077207 PLATELET COUNT 289 10e9/L 06/29/2018 COMPLETE BLOOD COUNT [id number] Mean Plt Volume 10.6 fL 06/29/2018 COMPLETE BLOOD COUNT 7591285 Neut Auto 74.1 % 06/29/2018 COMPLETE BLOOD COUNT 9977473 Lymph Auto 14.7 % 06/29/2018 COMPLETE BLOOD COUNT [id number] [place] Auto 8.3 % 06/29/2018 COMPLETE BLOOD COUNT 9107349 RDW 13.7 % 06/29/2018 COMPLETE BLOOD COUNT 7010159 Eos Auto 2.7 % 06/29/2018 COMPLETE BLOOD COUNT [id number] Baso Auto 0.2 % 06/29/2018 COMPLETE BLOOD COUNT 9926248 Neutrophil Abs 3.85 10e9/L 06/29/2018 COMPLETE BLOOD COUNT [id number] Lymphocyte Abs 0.76 10e9/L 06/29/2018 COMPLETE BLOOD COUNT [id number] Monocyte Abs 0.43 10e9/L 06/29/2018 COMPLETE BLOOD COUNT [id number] Eosinophil Abs 0.14 10e9/L 06/29/2018 COMPLETE BLOOD COUNT [id number] RDW-SD 42.7 fL 06/29/2018 COMPLETE BLOOD COUNT 6909135 Basophil Abs 0.01 10e9/L 06/29/2018 IRON 00219 IRON TEST 42 UG/DL 07/31/2014 FERRITIN 04624 FERRITIN 10 NG/ML 07/31/2014 VITAMIN B 12 FOLIC ACID 36347|39164 VIT B 12 233 PG/ML 07/31/2014 VITAMIN B 12 FOLIC ACID 67709|32824 FOLIC ACID 8.7 NG/ML 5 COMPLETE BLOOD COUNT 6527722 WBC 6.4 10e9/L 07/29/2014 COMPLETE BLOOD COUNT [id number] RBC 4.36 10e12/L 5 COMPLETE BLOOD COUNT 0568942 HGB 11.5 g/dL 07/29/2014 COMPLETE BLOOD COUNT 9452720 HCT DET 35.3 % 07/29/2014 COMPLETE BLOOD COUNT 3394512 MCV 81.0 fL 07/29/2014 COMPLETE BLOOD COUNT 6938348 MCH 26.4 pg 07/29/2014 COMPLETE BLOOD COUNT 4715960 MCHC 32.6 g/dL 07/29/2014 COMPLETE BLOOD COUNT 6059389 PLT 329 10e9/L 07/29/2014 COMPLETE BLOOD COUNT 4287714 MPV 10.4 fL 07/29/2014 COMPLETE BLOOD COUNT 3137074 ROLAND % 69.6 % 07/29/2014 COMPLETE BLOOD COUNT 6509668 LY % 21.3 % 07/29/2014 COMPLETE BLOOD COUNT [id number] MON % 6.8 % 07/29/2014 COMPLETE BLOOD COUNT 4851243 EOS % 2.0 % 07/29/2014 COMPLETE BLOOD COUNT 7653979 BASO % 0.3 % 07/29/2014 COMPLETE BLOOD COUNT 8019628 RDW 15.9 % 07/29/2014 COMPLETE BLOOD COUNT 5806844 ABS ROLAND 4.45 10e9/L 07/29/2014 COMPLETE BLOOD COUNT 3862954 ABS LYMPH 1.36 10e9/L 07/29/2014 COMPLETE BLOOD COUNT 7652775 ABS MONO 0.44 10e9/L 07/29/2014 COMPLETE BLOOD COUNT 1704428 ABS EOS 0.13 10e9/L 07/29/2014 COMPLETE BLOOD COUNT [id number] ABS BASO 0.02 10e9/L 07/29/2014 COMPLETE BLOOD COUNT 7753298 RDW-SD 46.1 fL 07/29/2014 LIPID GROUP [address] 41 MG/DL 07/29/2014 LIPID GROUP 41696 TRIG 92 MG/DL 07/29/2014 LIPID GROUP 63130 TEST L DL 118 MG/DL 07/29/2014 LIPID GROUP 00330 CHOL 177 MG/DL 07/29/2014 LIPID GROUP 16131 RCHOL/ HDL 4.32 RATIO 07/29/2014 LIPID GROUP 13805 NON-HD L CH 136 MG/DL 07/29/2014 GFR CALC 4426317 GFR AA >60 ML/MIN 07/29/2014 GFR CALC 9406558 GFR NON -AA >60 ML/MIN 07/29/2014 FREE T4 76243 FREE T4 1.10 NG/DL 07/29/2014 COMPREHENSIVE METABOLIC 91571 AST 13 U/L 07/29/2014 COMPREHENSIVE METABOLIC 61702 ALT 12 IU/L 07/29/2014 COMPREHENSIVE METABOLIC 73784 BUN 16 MG/DL 07/29/2014 COMPREHENSIVE METABOLIC 42891 ALBUMIN 4.1 GM/DL 07/29/2014 COMPREHENSIVE METABOLIC 92770 CHLORIDE 106 MMOL/L 07/29/2014 COMPREHENSIVE METABOLIC 95974 BILI TOT 0.4 MG/DL 07/29/2014 COMPREHENSIVE METABOLIC 69286 ALK PHOS 77 U/L 07/29/2014 COMPREHENSIVE METABOLIC 16579 SODIUM 137 MMOL/L 07/29/2014 COMPREHENSIVE METABOLIC 18453 CREATININE 0.65 MG/DL 07/29/2014 COMPREHENSIVE METABOLIC 79242 CALCIUM 9.0 MG/DL 07/29/2014 COMPREHENSIVE METABOLIC 20550 POTASSIUM 4.0 MMOL/L 07/29/2014 COMPREHENSIVE METABOLIC 11077 PROT TOT 6.3 GM/DL 07/29/2014 COMPREHENSIVE METABOLIC 20907 Glucose 98 MG/DL 07/29/2014 COMPREHENSIVE METABOLIC 49586 BICARB 26 MMOL/L 07/29/2014 COMPREHENSIVE METABOLIC 87618 ANION GAP 5 MEQ/L 07/29/2014 THYROID STIMULATING HORMONE 93076 TSH 1.678 uIU/ML 5 GFR CALC 5871870 GFR AA >60 ML/MIN 02/26/2013 GFR CALC 7305513 GFR NON -AA >60 ML/MIN 02/26/2013 THYROID STIMULATING HORMONE 88835 TSH 1.635 uIU/ML 3 COMPLETE BLOOD COUNT 2252571 WBC 7.8 10e9/L 02/26/2013 COMPLETE BLOOD COUNT 9063654 RBC 4.60 10e12/L 3 COMPLETE BLOOD COUNT 8101892 HGB 12.7 g/dL 02/26/2013 COMPLETE BLOOD COUNT 1277101 HCT DET 38.1 % 02/26/2013 COMPLETE BLOOD COUNT 3641946 MCV 82.8 fL 02/26/2013 COMPLETE BLOOD COUNT 4716098 MCH 27.6 pg 02/26/2013 COMPLETE BLOOD COUNT 7874494 MCHC 33.3 g/dL 02/26/2013 COMPLETE BLOOD COUNT 8311951 PLT 324 10e9/L 02/26/2013 COMPLETE BLOOD COUNT 3434122 MPV 10.2 fL 02/26/2013 COMPLETE BLOOD COUNT 6278050 ROLAND % 72.0 % 02/26/2013 COMPLETE BLOOD COUNT 5295349 LY % 20.1 % 02/26/2013 COMPLETE BLOOD COUNT 5973938 MON % 6.3 % 02/26/2013 COMPLETE BLOOD COUNT 6737985 EOS % 1.3 % 02/26/2013 COMPLETE BLOOD COUNT 4612031 BASO % 0.3 % 02/26/2013 COMPLETE BLOOD COUNT 5272313 RDW 14.4 % 02/26/2013 COMPLETE BLOOD COUNT 1410457 ABS ROLAND 5.62 10e9/L 02/26/2013 COMPLETE BLOOD COUNT 4435083 ABS LYMPH 1.57 10e9/L 02/26/2013 COMPLETE BLOOD COUNT 6050630 ABS MONO 0.49 10e9/L 02/26/2013 COMPLETE BLOOD COUNT 4039980 ABS EOS 0.10 10e9/L 02/26/2013 COMPLETE BLOOD COUNT 0155129 ABS BASO 0.02 10e9/L 02/26/2013 COMPLETE BLOOD COUNT 0876100 RDW-SD 42.8 fL 02/26/2013 COMPREHENSIVE METABOLIC 17236 AST 15 U/L 02/26/2013 COMPREHENSIVE METABOLIC 08462 ALT 14 IU/L 02/26/2013 COMPREHENSIVE METABOLIC 23706 BUN 14 MG/DL 02/26/2013 COMPREHENSIVE METABOLIC 39197 ALBUMIN 4.2 GM/DL 02/26/2013 COMPREHENSIVE METABOLIC 65804 CHLORIDE 104 MMOL/L 02/26/2013 COMPREHENSIVE METABOLIC 23811 BILI TOT 0.6 MG/DL 02/26/2013 COMPREHENSIVE METABOLIC 57829 ALK PHOS 71 U/L 02/26/2013 COMPREHENSIVE METABOLIC 76624 SODIUM 136 MMOL/L 02/26/2013 COMPREHENSIVE METABOLIC 80498 CREATININE 0.62 MG/DL 02/26/2013 COMPREHENSIVE METABOLIC 65116 CALCIUM 9.5 MG/DL 02/26/2013 COMPREHENSIVE METABOLIC 06276 POTASSIUM 4.1 MMOL/L 02/26/2013 COMPREHENSIVE METABOLIC 98010 PROT TOT 6.7 GM/DL 02/26/2013 COMPREHENSIVE METABOLIC 46601 Glucose 92 MG/DL 02/26/2013 COMPREHENSIVE METABOLIC 33710 BICARB 26 MMOL/L 02/26/2013 COMPREHENSIVE METABOLIC 59720 ANION GAP 6 MEQ/L 02/26/2013 LIPID GROUP [address] 45 MG/DL 02/26/2013 LIPID GROUP 08882 TRIG 107 MG/DL 02/26/2013 LIPID GROUP 41511 TEST L DL 129 MG/DL 02/26/2013 LIPID GROUP 43457 CHOL 195 MG/DL 02/26/2013 LIPID GROUP 75429 RCHOL/ HDL 4.33 RATIO 02/26/2013 FREE T4 66251 FREE T4 1.07 NG/DL 02/26/2013 MYCOPLASMA ANTIBODY, IFA [id number] MYCO G IFA 1:128 11/13/2012 MYCOPLASMA ANTIBODY, IFA [id number] MYCO M IFA <1:10 11/13/2012 MYCOPLASMA ANTIBODY, IFA [id number] MYCO INTER SEE BELO 11/13/2012 COMPLETE BLOOD COUNT 2159395 WBC 6.0 10e9/L 11/12/2012 COMPLETE BLOOD COUNT 4891680 RBC 4.68 10e12/L 3 COMPLETE BLOOD COUNT 1233186 HGB 12.9 g/dL 11/12/2012 COMPLETE BLOOD COUNT 1783943 HCT DET 38.7 % 11/12/2012 COMPLETE BLOOD COUNT 2904234 MCV 82.7 fL 11/12/2012 COMPLETE BLOOD COUNT 6481403 MCH 27.6 pg 11/12/2012 COMPLETE BLOOD COUNT 4437199 MCHC 33.3 g/dL 11/12/2012 COMPLETE BLOOD COUNT 7803311 PLT 297 10e9/L 11/12/2012 COMPLETE BLOOD COUNT 2586752 MPV 11.1 fL 11/12/2012 COMPLETE BLOOD COUNT 5034338 ROLAND % 63.8 % 11/12/2012 COMPLETE BLOOD COUNT 2978858 LY % 28.2 % 11/12/2012 COMPLETE BLOOD COUNT 2075809 MON % 6.6 % 11/12/2012 COMPLETE BLOOD COUNT 0132408 EOS % 1.2 % 11/12/2012 COMPLETE BLOOD COUNT 0088484 BASO % 0.2 % 11/12/2012 COMPLETE BLOOD COUNT 3673932 RDW 14.9 % 11/12/2012 COMPLETE BLOOD COUNT 6102827 ABS ROLAND 3.83 10e9/L 11/12/2012 COMPLETE BLOOD COUNT 3414793 ABS LYMPH 1.69 10e9/L 11/12/2012 COMPLETE BLOOD COUNT 2980913 ABS MONO 0.40 10e9/L 11/12/2012 COMPLETE BLOOD COUNT 5789049 ABS EOS 0.07 10e9/L 11/12/2012 COMPLETE BLOOD COUNT 2941171 ABS BASO 0.01 10e9/L 11/12/2012 COMPLETE BLOOD COUNT 3856585 RDW-SD 44.8 fL 11/12/2012 HEMOGLOBIN A1C (GLYCOSYLATED) 6182755 A1C HPLC 87986-8 5.1 % 06/06/2012 RA FACTOR 03870 RA FACTOR <20.0 IU/ML 06/06/2012 ANTINUCLEAR ANTIBODY SCREEN 19461 FERDINAND SCR <1:80 06/06/2012 INSULIN SERUM 78612 INSU PETER 12.2 mU/L 06/06/2012 COMPREHENSIVE METABOLIC 71663 AST 13 U/L 06/05/2012 COMPREHENSIVE METABOLIC 55129 ALT 13 IU/L 06/05/2012 COMPREHENSIVE METABOLIC 96600 BUN 21 MG/DL 06/05/2012 COMPREHENSIVE METABOLIC 21764 ALBUMIN 4.7 GM/DL 06/05/2012 COMPREHENSIVE METABOLIC 80129 CHLORIDE 106 MMOL/L 06/05/2012 COMPREHENSIVE METABOLIC 43115 BILI TOT 0.6 MG/DL 06/05/2012 COMPREHENSIVE METABOLIC 21453 ALK PHOS 61 U/L 06/05/2012 COMPREHENSIVE METABOLIC 62646 SODIUM 139 MMOL/L 06/05/2012 COMPREHENSIVE METABOLIC 78252 CREATININE 0.71 MG/DL 06/05/2012 COMPREHENSIVE METABOLIC 45402 CALCIUM 9.8 MG/DL 06/05/2012 COMPREHENSIVE METABOLIC 79849 POTASSIUM 4.6 MMOL/L 06/05/2012 COMPREHENSIVE METABOLIC 94762 PROT TOT 6.7 GM/DL 06/05/2012 COMPREHENSIVE METABOLIC 70979 Glucose 104 MG/DL 06/05/2012 COMPREHENSIVE METABOLIC 02446 BICARB 24 MMOL/L 06/05/2012 COMPREHENSIVE METABOLIC 27636 ANION GAP 9 MEQ/L 06/05/2012 GFR CALC 5353144 GFR AA >60 ML/MIN 06/05/2012 GFR CALC 7674611 GFR NON -AA >60 ML/MIN 06/05/2012 LIPID GROUP [address] 46 MG/DL 06/05/2012 LIPID GROUP 43115 TRIG 77 MG/DL 06/05/2012 LIPID GROUP 97265 TEST L DL 135 MG/DL 06/05/2012 LIPID GROUP 07610 CHOL 196 MG/DL 06/05/2012 LIPID GROUP 44166 RCHOL/ HDL 4.26 RATIO 06/05/2012 COMPLETE BLOOD COUNT 7909701 WBC 5.9 10e9/L 06/05/2012 COMPLETE BLOOD COUNT 3654113 RBC 5.02 10e12/L 3 COMPLETE BLOOD COUNT 3762306 HGB 13.9 g/dL 06/05/2012 COMPLETE BLOOD COUNT 8624791 HCT DET 41.5 % 06/05/2012 COMPLETE BLOOD COUNT 1293005 MCV 82.7 fL 06/05/2012 COMPLETE BLOOD COUNT 2854060 MCH 27.7 pg 06/05/2012 COMPLETE BLOOD COUNT 7383972 MCHC 33.5 g/dL 06/05/2012 COMPLETE BLOOD COUNT 9796989 PLT 323 10e9/L 06/05/2012 COMPLETE BLOOD COUNT 5397238 MPV 11.3 fL 06/05/2012 COMPLETE BLOOD COUNT 9986651 ROLAND % 70.6 % 06/05/2012 COMPLETE BLOOD COUNT 2948434 LY % 21.4 % 06/05/2012 COMPLETE BLOOD COUNT 3159561 MON % 6.4 % 06/05/2012 COMPLETE BLOOD COUNT 9921112 EOS % 1.3 % 06/05/2012 COMPLETE BLOOD COUNT 6411959 BASO % 0.3 % 06/05/2012 COMPLETE BLOOD COUNT 1815280 RDW 14.9 % 06/05/2012 COMPLETE BLOOD COUNT 1443801 ABS ROLAND 4.17 10e9/L 06/05/2012 COMPLETE BLOOD COUNT 0203378 ABS LYMPH 1.26 10e9/L 06/05/2012 COMPLETE BLOOD COUNT 1544501 ABS MONO 0.38 10e9/L 06/05/2012 COMPLETE BLOOD COUNT 4519183 ABS EOS 0.08 10e9/L 06/05/2012 COMPLETE BLOOD COUNT 8050657 ABS BASO 0.02 10e9/L 06/05/2012 COMPLETE BLOOD COUNT 7435991 RDW-SD 44.8 fL 06/05/2012 THYROID STIMULATING HORMONE 48461 TSH 1.684 uIU/ML 3 FREE T4 26323 FREE T4 1.19 NG/DL 06/05/2012 BASIC METABOLIC PANEL 86497 Glucose 100 MG/DL 04/13/2011 BASIC METABOLIC PANEL 50649 CREATININE 0.66 MG/DL 04/13/2011 BASIC METABOLIC PANEL 71997 BUN 18 MG/DL 04/13/2011 BASIC METABOLIC PANEL 86640 SODIUM 138 MMOL/L 04/13/2011 BASIC METABOLIC PANEL 67795 BICARB 26 MMOL/L 04/13/2011 BASIC METABOLIC PANEL 48559 POTASSIUM 4.0 MMOL/L 04/13/2011 BASIC METABOLIC PANEL 37607 ANION GAP 9 MEQ/L 04/13/2011 BASIC METABOLIC PANEL 86307 CHLORIDE 103 MMOL/L 04/13/2011 BASIC METABOLIC PANEL 90181 CALCIUM 9.6 MG/DL 04/13/2011 FSH 9917237 FSH 4.6 MIU/ML 04/13/2011 GFR CALC 1981822 GFR AA >60 ML/MIN 04/13/2011 GFR CALC 6461696 GFR NON -AA >60 ML/MIN 04/13/2011 ESTRADIOL SERUM 33777 ES TRADIOL 113 PG/ML 04/13/2011 LH 95970 LH 3.7 MIU/ML 04/13/2011 THYROID STIMULATING HORMONE 08210 TSH 1.995 uIU/ML 1 LIPID GROUP [address] 40 MG/DL 12/21/2010 LIPID GROUP 97165 TRIG 66 MG/DL 12/21/2010 LIPID GROUP 97050 TEST L DL 132 MG/DL 12/21/2010 LIPID GROUP 91462 CHOL 185 MG/DL 12/21/2010 LIPID GROUP 56477 RCHOL/ HDL 4.63 RATIO 12/21/2010 THYROID STIMULATING HORMONE 08949 TSH 1.876 uIU/ML 1 COMPLETE BLOOD COUNT 59041 WBC 7.0 10e9/L 12/21/2010 COMPLETE BLOOD COUNT 24755 RBC 4.28 10e12/L 1 COMPLETE BLOOD COUNT 64100 HGB 12.1 g/dL 12/21/2010 COMPLETE BLOOD COUNT 23382 HCT DET 36.1 % 12/21/2010 COMPLETE BLOOD COUNT 88620 MCV 84.3 fL 12/21/2010 COMPLETE BLOOD COUNT 78779 MCH 28.3 pg 12/21/2010 COMPLETE BLOOD COUNT 66038 MCHC 33.5 g/dL 12/21/2010 COMPLETE BLOOD COUNT 42879 PLT 306 10e9/L 12/21/2010 COMPLETE BLOOD COUNT 41095 MPV 10.4 fL 12/21/2010 COMPLETE BLOOD COUNT 37670 ROLAND % 69.9 % 12/21/2010 COMPLETE BLOOD COUNT 63777 LY % 22.2 % 12/21/2010 COMPLETE BLOOD COUNT 40363 MON % 5.7 % 12/21/2010 COMPLETE BLOOD COUNT 61183 EOS % 1.9 % 12/21/2010 COMPLETE BLOOD COUNT 84975 BASO % 0.3 % 12/21/2010 COMPLETE BLOOD COUNT 51126 RDW 14.0 % 12/21/2010 COMPLETE BLOOD COUNT 51691 ABS ROLAND 4.89 10e9/L 12/21/2010 COMPLETE BLOOD COUNT 85792 ABS LYMPH 1.55 10e9/L 12/21/2010 COMPLETE BLOOD COUNT 68020 ABS MONO 0.40 10e9/L 12/21/2010 COMPLETE BLOOD COUNT 23560 ABS EOS 0.13 10e9/L 12/21/2010 COMPLETE BLOOD COUNT 71851 ABS BASO 0.02 10e9/L 12/21/2010 COMPLETE BLOOD COUNT 53875 RDW-SD 41.5 fL 12/21/2010 FREE T4 91206 FREE T4 1.02 NG/DL 12/21/2010 COMPREHENSIVE METABOLIC 83889 AST 11 U/L 12/21/2010 COMPREHENSIVE METABOLIC 94203 ALT 9 IU/L 12/21/2010 COMPREHENSIVE METABOLIC 74913 BUN 16 MG/DL 12/21/2010 COMPREHENSIVE METABOLIC 97989 ALBUMIN 4.0 GM/DL 12/21/2010 COMPREHENSIVE METABOLIC 73383 CHLORIDE 106 MMOL/L 12/21/2010 COMPREHENSIVE METABOLIC 37650 BILI TOT 0.3 MG/DL 12/21/2010 COMPREHENSIVE METABOLIC 68120 ALK PHOS 59 U/L 12/21/2010 COMPREHENSIVE METABOLIC 32948 SODIUM 139 MMOL/L 12/21/2010 COMPREHENSIVE METABOLIC 81487 CREATININE 0.66 MG/DL 12/21/2010 COMPREHENSIVE METABOLIC 13959 CALCIUM 8.9 MG/DL 12/21/2010 COMPREHENSIVE METABOLIC 86183 POTASSIUM 4.2 MMOL/L 12/21/2010 COMPREHENSIVE METABOLIC 06327 PROT TOT 6.5 GM/DL 12/21/2010 COMPREHENSIVE METABOLIC 24473 Glucose 101 MG/DL 12/21/2010 COMPREHENSIVE METABOLIC 19886 BICARB 28 MMOL/L 12/21/2010 COMPREHENSIVE METABOLIC 32105 ANION GAP 5 MEQ/L 12/21/2010 GFR CALC 0106977 GFR AA >60 ML/MIN 12/21/2010 GFR CALC 9868680 GFR NON -AA >60 ML/MIN 12/21/2010 LIPID GROUP [address] 40 MG/DL 12/10/2009 LIPID GROUP 97235 TRIG 98 MG/DL 12/10/2009 LIPID GROUP 93636 TEST L DL 128 MG/DL 12/10/2009 LIPID GROUP 67631 CHOL 188 MG/DL 12/10/2009 LIPID GROUP 49156 RCHOL/ HDL 4.70 RATIO 12/10/2009 DF 9251034 POLY 74 % 12/09/2009 DF 6104764 BAND 0 % 12/09/2009 DF 1804091 LYMP 21 % 12/09/2009 DF 0842847 MONO 3 % 12/09/2009 DF 7855856 EOS 2 % 12/09/2009 DF 9770467 BASO 0 % 12/09/2009 GFR CALC 0533027 GFR AA >60 ML/MIN 12/09/2009 GFR CALC 1258861 GFR NON -AA >60 ML/MIN 12/09/[address] 3695925 WBC 8.7 10e9/L 12/09/[address] 8244544 RBC 4.78 10e12/L 12/09/[address] 3574668 HGB 13.2 g/dL 12/09/[address] 6639366 HCT DET 40.2 % 12/09/[address] 0473523 MCV 84.1 fL 12/09/[address] 3192712 MCH 27.6 pg 12/09/[address] 1220290 MCHC 32.8 g/dL 12/09/[address] 3918075 PLT 374 10e9/L 12/09/[address] 6839603 MPV 11.0 fL 12/09/[address] 0827162 ROLAND % 70.2 % 12/09/[address] 0566946 RDW 14.4 % 12/09/[address] 5968667 LY % 22.4 % 12/09/[address] 1168090 RDW-SD 44.7 fL 12/09/[address] 8523224 MON % 6.2 % 12/09/[address] 9030100 EOS % 1.0 % 12/09/[address] 8637757 BASO % 0.2 % 12/09/[address] 7239548 ABS ROLAND 6.08 10e9/L 12/09/[address] 3604958 ABS LY MPH 1.94 10e9/L 12/09/[address] 3169925 ABS MO NO 0.54 10e9/L 12/09/[address] 7723392 ABS EOS 0.09 10e9/L 12/09/[address] 1772973 ABS BA SO 0.02 10e9/L 12/09/2009 THYROID STIMULATING HORMONE 02964 TSH 1.916 uIU/ML 0 COMPREHENSIVE METABOLIC 67672 AST 13 U/L 12/09/2009 COMPREHENSIVE METABOLIC 77654 ALT 13 IU/L 12/09/2009 COMPREHENSIVE METABOLIC 32563 BUN 18 MG/DL 12/09/2009 COMPREHENSIVE METABOLIC 86901 ALBUMIN 4.3 GM/DL 12/09/2009 COMPREHENSIVE METABOLIC 70635 CHLORIDE 106 MMOL/L 12/09/2009 COMPREHENSIVE METABOLIC 33963 BILI TOT 0.5 MG/DL 12/09/2009 COMPREHENSIVE METABOLIC 59462 ALK PHOS 69 U/L 12/09/2009 COMPREHENSIVE METABOLIC 81966 SODIUM 137 MMOL/L 12/09/2009 COMPREHENSIVE METABOLIC 84383 CREATININE 0.69 MG/DL 12/09/2009 COMPREHENSIVE METABOLIC 64851 CALCIUM 9.1 MG/DL 12/09/2009 COMPREHENSIVE METABOLIC 19713 POTASSIUM 4.5 MMOL/L 12/09/2009 COMPREHENSIVE METABOLIC 81279 PROT TOT 6.9 GM/DL 12/09/2009 COMPREHENSIVE METABOLIC 52461 Glucose 97 MG/DL 12/09/2009 COMPREHENSIVE METABOLIC 76431 BICARB 20 MMOL/L 12/09/2009 COMPREHENSIVE METABOLIC 14381 ANION GAP 11 MEQ/L 12/09/2009 Review of [...] 06/04/2012 Gastrointestinal No nausea 06/04/2012 Neurologic headache 08/12/2011 Dermatologic No rash 12/2011 Dermatologic No scar [...] Psychiatric No depression 12/21/2011 Endocrine No goiter 08/0 12/2011 Endocrine No hyperglycemia 12/21/2011 Endocrine No [...] Allergy/Immunology No food allergy 12/06/2010 Neurologic headache 05/2009 Respiratory apneic events 04/14/2010 Constitutional fatigue 1 06/15/2009 Neurologic No dizziness 02/16/2010 Neurologic headache 09/2009 Musculoskeletal neck pain 02/16/2010 Musculoskeletal back [...] 12/06/[address] mcarthur, flaking and mildly red-discussed follow up as [...] Procedures Procedure Codes Date ROUTINE VENIPUNCTURE CPT-4: 87315 06/29/2018 ASSAY OF FREE THYROXINE CPT-4: 50765 06/29/2018 ASSAY THYROID STIM H ORMONE CPT-4: 92677 06/29/2018 COMPREHEN METABOLIC PANEL CPT-4: 22908 06/29/2018 COMPLETE CBC W/AUTO DIFF WBC CPT-4: 51598 06/29/2018 LIPID PANEL CPT-4: 15569 06/29/2018 TDAP VACCINE 7 YRS/> IM CPT-4: 13475 06/11/2018 IMMUNIZATION ADMIN CPT- 4: 31098 06/11/2018 ROUTINE VENIPUNCTURE CPT-4: 58530 04/05/2017 ASSAY THYROID STIM H ORMONE CPT-4: 82550 04/05/2017 COMPREHEN METABOLIC PANEL CPT-4: 40529 04/05/2017 COMPLETE CBC W/AUTO DIFF WBC CPT-4: 81583 04/05/2017 LIPID PANEL CPT-4: 41445 04/05/2017 ASSAY OF BLOOD/URIC ACID CPT-4: 73994 04/05/2017 THER/PROPH/DIAG INJ SC/IM CPT-4: 35462 02/12/2016 TRIAMCINOLONE ACET I [place] NOS CPT-4: J3301 02/12/2016 DEXAMETHASONE SODIUM PHOS CPT-4: J1100 02/12/2016 PRESCRIP TRANSMIT A ERX SY CPT-4: G8553 10/01/2015 URINALYSIS NONAUTO W /O SCOPE CPT-4: 31159 10/01/2015 URINE CULTURE/ COLON Y COUNT CPT-4: 09437 10/01/2015 OCCULT BLOOD FECES CPT- 4: 92666 08/04/2015 [facility] CPT-4: 70854 08/04/2015 URINALYSIS NONAUTO W /O SCOPE CPT-4: 23045 05/27/2015 URINE CULTURE/ COLON Y COUNT CPT-4: 37923 05/27/2015 THER/PROPH/DIAG INJ SC/IM CPT-4: 71488 03/10/2015 KETOROLAC TROMETHAMI NE INJ CPT-4: J1885 03/10/2015 ROUTINE VENIPUNCTURE CPT-4: 59698 07/29/2014 ASSAY OF FREE THYROXINE CPT-4: 94098 07/29/2014 ASSAY THYROID STIM H ORMONE CPT-4: 86340 07/29/2014 COMPREHEN METABOLIC PANEL CPT-4: 37300 07/29/2014 COMPLETE CBC W/AUTO DIFF WBC CPT-4: 76331 07/29/2014 LIPID PANEL CPT-4: 50562 07/29/2014 ASSAY OF IRON CPT-4: 80068 07/29/2014 ASSAY OF FERRITIN CPT-4: 01497 07/29/2014 VITAMIN B 12 FOLIC ACID CPT-4: 52206|68730 07/29/2014 URINALYSIS NONAUTO W /O SCOPE CPT-4: 67085 05/31/2013 URINE CULTURE/ COLON Y COUNT CPT-4: 14639 05/31/2013 INFLUENZA ASSAY W/OPTIC CPT-4: 17311 05/27/2013 THER/PROPH/DIAG INJ SC/IM CPT-4: 55210 05/27/2013 METHYLPREDNISOLONE 4 0 MG INJ CPT-4: J1030 05/27/2013 TRIAMCINOLONE ACET I [place] NOS CPT-4: J3301 05/27/2013 ROUTINE VENIPUNCTURE CPT-4: 52296 02/26/2013 ASSAY OF FREE THYROXINE CPT-4: 17988 02/26/2013 ASSAY THYROID STIM H ORMONE CPT-4: 67054 02/26/2013 COMPREHEN METABOLIC PANEL CPT-4: 05219 02/26/2013 COMPLETE CBC W/AUTO DIFF WBC CPT-4: 27962 02/26/2013 LIPID PANEL CPT-4: 31222 02/26/2013 ROUTINE VENIPUNCTURE CPT-4: 27395 11/12/2012 COMPLETE CBC W/AUTO DIFF WBC CPT-4: 67805 11/12/2012 MYCOPLASMA ANTIBODY, IFA CPT-4: 65868D6 11/12/2012 ROUTINE VENIPUNCTURE CPT-4: 53441 06/05/2012 ASSAY OF FREE THYROXINE CPT-4: 71573 06/05/2012 ASSAY THYROID STIM H ORMONE CPT-4: 88662 06/05/2012 COMPREHEN METABOLIC PANEL CPT-4: 28129 06/05/2012 COMPLETE CBC W/AUTO DIFF WBC CPT-4: 15174 06/05/2012 LIPID PANEL CPT-4: 12077 06/05/2012 ANTINUCLEAR ANTIBODIES CPT-4: 40425 06/05/2012 RHEUMATOID FACTOR QUANT CPT-4: 86124 06/05/2012 ASSAY OF INSULIN CPT-4: 64243 06/05/2012 A1C GLYCOSYLATED HEM OGLOBIN TEST CPT-4: 97432 06/05/2012 [facility] CPT-4: 90599 12/21/2011 ROUTINE VENIPUNCTURE CPT-4: 76122 04/13/2011 ASSAY THYROID STIM H ORMONE CPT-4: 72669 04/13/2011 METABOLIC PANEL TOTA L CA CPT-4: 41366 04/13/2011 FSH CPT-4: 7091346 04/13/2011 LH CPT-4: 28894 04/13/2011 ASSAY OF ESTRADIOL CPT- 4: 05438 04/13/2011 URINALYSIS NONAUTO W /O SCOPE CPT-4: 23125 02/04/2011 URINE CULTURE/ COLON Y COUNT CPT-4: 20716 02/04/2011 ROUTINE VENIPUNCTURE CPT-4: 19562 12/21/2010 ASSAY OF FREE THYROXINE CPT-4: 28956 12/21/2010 ASSAY THYROID STIM H ORMONE CPT-4: 36556 12/21/2010 COMPLETE CBC W/AUTO DIFF WBC CPT-4: 72051 12/21/2010 COMPREHEN METABOLIC PANEL CPT-4: 45237 12/21/2010 LIPID PANEL CPT-4: 84671 12/21/2010 OCCULT BLOOD FECES CPT- 4: 97480 12/06/2010 ROUTINE VENIPUNCTURE CPT-4: 66985 12/09/2009 CBC WITH MANUAL DIFF ERENTIAL CPT-4: 25336|50328 12/09/2009 COMPREHEN METABOLIC PANEL CPT-4: 80699 12/09/2009 LIPID PANEL CPT-4: 22254 12/09/2009 ASSAY THYROID STIM H ORMONE CPT-4: 25950 12/09/2009 SPECIMEN HANDLING OF [facility] CPT-4: 70410 12/08/2009 THER/PROPH/DIAG INJ SC/IM CPT-4: 17067 09/01/2009 KETOROLAC TROMETHAMI NE INJ CPT-4: J1885 09/01/2009 URINALYSIS NONAUTO W /O SCOPE CPT-4: 39632 08/26/2009 Vital Signs Date Vital 01/15/2019 Blood [...] 1: 106/68 Code: 8480-6 BMI: 36.2 Code: 44300-2 Heart Rate 1: 72 bpm Height: 5'2" Respiratory Rate: 20 bpm SpO2: 97% Temperature: 37.1 (C ) / 98.8 (F) Weight: 198 lbs 04/05/2017 Blood Pressure 1: 114/78 Code: 8480-6 BMI: 35.5 Code: 68343-5 Heart Rate 1: 68 bpm Height: 5'2" Respiratory Rate: 20 bpm SpO2: 96% Temperature: 36.9 (C ) / 98.5 (F) Weight: 194 lbs 02/12/2016 Blood Pressure 1: 126/78 Code: 8480-6 BMI: 31.8 Code: 66784-6 Heart Rate 1: 60 bpm Height: 5'2" Respiratory Rate: 24 bpm SpO2: 96% Temperature: 36.2 (C ) / 97.1 (F) Weight: 174 lbs 01/25/2016 Blood Pressure 1: 128/78 Code: 8480-6 BMI: 31.6 Code: 97869-2 Heart Rate 1: 76 bpm Height: 5'2" Respiratory Rate: 20 bpm SpO2: 98% Temperature: 36.5 (C ) / 97.7 (F) Weight: 173 lbs 10/01/2015 Blood Pressure 1: 108/58 Code: 8480-6 BMI: 32.9 Code: 06468-2 Heart Rate 1: 62 bpm Height: 5'2" Respiratory Rate: 20 bpm SpO2: 98% Temperature: 36.2 (C ) / 97.1 (F) Weight: 180 lbs 08/04/2015 Blood Pressure 1: 126/78 Code: 8480-6 BMI: 33.8 Code: 33209-5 Heart Rate 1: 72 bpm Height: 5'2" Respiratory Rate: 20 bpm Temperature: 36.9 (C ) / 98.5 (F) Weight: 185 lbs 05/27/2015 Blood Pressure 1: 132/80 Code: 8480-6 BMI: 36.2 Code: 69214-7 Heart Rate 1: 56 bpm Height: 5'2" Respiratory Rate: 20 bpm Temperature: 37.0 (C ) / 98.6 (F) Weight: 198 lbs 03/10/2015 Blood Pressure 1: 136/82 Code: 8480-6 BMI: 36.2 Code: 40080-3 Heart Rate 1: 88 bpm Height: 5'2" Respiratory Rate: 20 bpm Temperature: 37.0 (C ) / 98.6 (F) Weight: 198 lbs 06/30/2014 Blood Pressure 1: 124/78 Code: 8480-6 BMI: 35.8 Code: 41340-3 Heart Rate 1: 84 bpm Height: 5'2" Respiratory Rate: 20 bpm Temperature: 36.8 (C ) / 98.2 (F) Weight: 196 lbs 08/12/2013 Blood Pressure 1: 114/72 Code: 8480-6 BMI: 35.8 Code: 78559-7 Heart Rate 1: 80 bpm Height: 5'2" [...] 1: 132/86 Code: 8480-6 BMI: 34.9 Code: 66645-8 Heart Rate 1: 72 bpm Height: 5'2" Respiratory Rate: 20 bpm Temperature: 36.9 (C ) / 98.4 (F) Weight: 191 lbs 11/29/2012 Blood Pressure 1: 126/82 Code: 8480-6 BMI: 34.4 Code: 00256-3 Heart Rate 1: 84 bpm Height: 5'2" Respiratory Rate: 20 bpm Temperature: 36.7 (C ) / 98.0 (F) Weight: 188 lbs 11/12/2012 Blood Pressure 1: 110/62 Code: 8480-6 BMI: 34.8 Code: 87369-0 Heart Rate 1: 64 bpm Height: 5'2" Temperature: 36.7 (C ) / 98.1 (F) Weight: 190 lbs 07/30/2012 Blood Pressure 1: 124/82 Code: 8480-6 BMI: 36.0 Code: 16069-1 Heart Rate 1: 84 bpm Height: 5'2" Respiratory Rate: 20 bpm Temperature: 36.5 (C ) / 97.7 (F) Weight: 197 lbs 06/04/2012 Blood Pressure 1: 118/70 Code: 8480-6 BMI: 36.2 Code: 61820-8 Heart Rate 1: 64 bpm Height: 5'2" Temperature: 37.1 (C ) / 98.7 (F) Weight: 198 lbs 12/21/2011 Blood Pressure 1: 132/80 Code: 8480-6 BMI: 33.3 Code: 14450-6 Heart Rate 1: 64 bpm Height: 5'2" Respiratory Rate: 20 bpm Temperature: 36.6 (C ) / 97.8 (F) Weight: 182 lbs 10/07/2011 Blood Pressure 1: 128/72 Code: 8480-6 BMI: 34.4 Code: 30721-5 Heart Rate 1: 80 bpm Height: 5'2" Respiratory Rate: 20 bpm Temperature: 36.8 (C ) / 98.2 (F) Weight: 188 lbs 09/05/2011 Blood Pressure 1: 106/72 Code: 8480-6 BMI: 33.3 Code: 13308-1 Heart Rate 1: 76 bpm Height: 5'2" Respiratory Rate: 20 bpm Temperature: 36.6 (C ) / 97.9 (F) Weight: 182 lbs 04/28/2011 Blood Pressure 1: 110/70 Code: 8480-6 BMI: 34.4 Code: 94886-0 Heart Rate 1: 60 bpm Height: 5'2" Temperature: 37.0 (C ) / 98.6 (F) Weight: 188 lbs 04/13/2011 Blood Pressure 1: 106/84 Code: 8480-6 BMI: 34.4 Code: 73678-1 Heart Rate 1: 80 bpm Height: 5'2" Respiratory Rate: 20 bpm Temperature: 36.6 (C ) / 97.8 (F) Weight: 188 lbs 02/04/2011 Blood Pressure 1: 108/76 Code: 8480-6 BMI: 33.7 Code: 71574-7 Heart Rate 1: 74 bpm Height: 5'2" Weight: 184 lbs 12/06/2010 Blood Pressure 1: 120/72 Code: 8480-6 BMI: 33.3 Code: 62467-6 Heart Rate 1: 76 bpm Height: 5'2" [...] 1: 118/66 Code: 8480-6 BMI: 32.6 Code: 43777-3 Heart Rate 1: 68 bpm Height: 5'2" Temperature: 36.7 (C ) / 98.1 (F) Weight: 178 lbs 09/01/2009 Blood Pressure 1: 118/76 Code: 8480-6 BMI: 34.6 Code: 84409-5 Heart Rate 1: 76 bpm Height: 5'2" [...] Quality acute 04/13/2011 had nasal reconstuction in 1992 dysuria Quality aching 02/04/2011 None dysuria Quality [...] years) Menstr ual History last menstrual period 7--11 12/06/2010 None well woman exam (40-65 years) [...] Encounters Encounter Performer Loca tion Codes Date ([id number]) OFFICE/OUTPA TIENT VISIT EST Diagnosis: Essential (primary) hypertension[ICD10: I10] Diagnosis: Encounter for therapeutic drug level monitoring[ICD10: Z51.81] Silvia ANDERS [employer] CPT-4: 26027 01/15/2019 ([id number]) OFFICE/OUTPA TIENT VISIT EST Diagnosis: Acute bronchitis, unspecified[ICD10: J20.9] Diagnosis: Acute recurrent maxillary sinusitis[ICD10: J01.01] Nicol ANDERS [employer] CPT-4: 66555 07/20/2018 ([id number]) NURSE/OUTPAT IENT VISIT EST Diagnosis: Encounter for general adult medical examination without abnormal findings[ICD10: Z00.00] Diagnosis: Mixed hyperlipidemia[ICD10: E78.2] Caren CEE [employer] CPT-4: 75117 06/29/2018 ([id number]) PREV VISIT E AGE 40-64 Diagnosis: Encounter for general adult medical examination without abnormal findings[ICD10: Z00.00] Diagnosis: Encounter for screening mammogram for malignant neoplasm of breast[ICD10: Z12.31] Diagnosis: Essential (primary) hypertension[ICD10: I10] Diagnosis: Migraine with aura, not intractable, without status migrainosus[ICD10: G43.109] Diagnosis: VACCINE FOR TDAP[ICD10: Z23] Caren ANDERS [employer] CPT-4: 32488 06/11/2018 ([id number]) PREV VISIT E AGE 40-64 Diagnosis: Encounter [...] Pain in unspecified joint[ICD10: M25.50] Caren CEE [employer] CPT-4: 20369 04/05/2017 ([id number]) OFFICE/OUTPA TIENT VISIT EST Diagnosis: Acute upper respiratory infection, unspecified[ICD10: J06.9] Diagnosis: Acute maxillary sinusitis, unspecified[ICD10: J01.00] Chiara ANDERS [employer] CPT-4: 69691 02/12/2016 ([id number]) OFFICE/OUTPA TIENT VISIT EST Diagnosis: Acute upper respiratory infection, unspecified[ICD10: J06.9] Diagnosis: Acute maxillary sinusitis, unspecified[ICD10: J01.00] Chiara ANDERS DO [facility] CPT-4: 40304 01/25/2016 ([id number]) OFFICE/OUTPA TIENT VISIT EST Diagnosis: Urinary tract infection, site not specified[ICD10: N39.0] Chiara ANDERS [employer] [facility] CPT-4: 81592 10/01/2015 ([id number]) PREV VISIT E ST AGE 40-64 Diagnosis: Encounter for gynecological examination (general) (routine) without abnormal findings[ICD10: Z01.419] Diagnosis: Encounter for general adult medical examination without abnormal findings[ICD10: Z00.00] Diagnosis: Migraine, unspecified, not intractable, without status migrainosus[ICD10: G43.909] Diagnosis: Essential (primary) hypertension[ICD10: I10] Caren CEE [employer] CPT-4: 52915 08/04/2015 ([id number]) OFFICE/OUTPA TIENT VISIT EST Diagnosis: Menopausal and female climacteric states[ICD10: N95.1] Diagnosis: Dysuria[ICD10: R30.0] Caren ANDERS [employer] CPT-4: 96574 05/27/2015 OFFICE/OUTPATIENT SIT EST Diagnosis: Persistent migraine 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 cerebral infarction, intractable, with status migrainosus[ICD10: G43.511] Diagnosis: Unspecified convulsions[ICD10: R56.9] Caren CEE [employer] CPT-4: 91144 03/10/2015 ([id number]) OFFICE/OUTPA TIENT VISIT EST Diagnosis: HYPERLIPIDEMIA NEC/NOS[ICD9: 272.4] Diagnosis: HYPERTENSION[ICD9: 401.9] Diagnosis: MALAISE AND FATIGUE[ICD9: 780.79] Diagnosis: ANEMIA NOS[ICD9: 285.9] Caren ANDERS [facility] CPT-4: 29263 07/29/2014 ([id number]) PREV VISIT E ST AGE 40-64 Diagnosis: ROUTINE MEDICAL EXAM[ICD9: V70.0] Diagnosis: HYPERTENSION[ICD9: 401.9] Diagnosis: MIGRAINE NOS/NOT INTRCBL[ICD9: 346.90] Diagnosis: GERD[ICD9: 530.81] [facility] 08588 06/30/2014 ([id number]) OFFICE/OUTPA TIENT VISIT EST Diagnosis: ALLERGIC RHINITIS[ICD9: 477.9] Diagnosis: DERMATITIS NOS[ICD9: 692.9] Caren ANDERS [facility] CPT-4: 57907 08/12/2013 OFFICE/OUTPATIENT SIT EST Diagnosis: HEMATURIA NOS[ICD9: 599.70] Diagnosis: COUGH[ICD9: 786.2] Diagnosis: BRONCHITIS, ACUTE[ICD9: 466.0] Diagnosis: URINARY TRACT INFECTION[ICD9: 599.0] Lyndsey MichelleJennaamerica GARBERLINE SRajni Obed [facility] CPT-4: 47559 05/31/2013 OFFICE/OUTPATIENT SIT EST Diagnosis: COUGH[ICD9: 786.2] Diagnosis: SINUSITIS, ACUTE[ICD9: 461.9] Diagnosis: FEBRILE ILLNESS[ICD9: 780.60] Lyndsey MichelleJennaamerica [facility] CPT-4: 66468 05/27/2013 ([id number]) OFFICE/OUTPA TIENT VISIT EST Diagnosis: DERMATITIS NOS[ICD9: 692.9] Diagnosis: Tinea cruris[ICD9: 110.3] [facility] CPT-[facility]: 84991 02/26/2013 OFFICE/OUTPATIENT SIT EST Diagnosis: Rash[ICD9: 782.1] Anni Brennan CAREN Evelyn [facility] [employer] [facility] CPT-4: 56668 11/29/2012 OFFICE/OUTPATIENT SIT EST Diagnosis: COUGH[ICD9: 786.2] Diagnosis: SINUSITIS, ACUTE[ICD9: 461.9] Diagnosis: PHARYNGITIS, ACUTE[ICD9: 462] Caren ANDERS [facility] CPT-4: 90342 11/12/2012 OFFICE/OUTPATIENT SIT EST Diagnosis: COUGH[ICD9: 786.2] Diagnosis: SINUSITIS, ACUTE[ICD9: 461.9] Diagnosis: Myalgia[ICD9: 729.1] Caren ANDERS [facility] CPT-4: 56963 07/30/2012 ([id number]) OFFICE/OUTPA TIENT VISIT EST Diagnosis: JOINT PAIN-UNSPEC[ICD9: 719.40] Diagnosis: Rash and nonspecific skin eruption[ICD9: 782.1] Caren CEE [facility] CPT-4: 84448 06/05/2012 OFFICE/OUTPATIENT SIT EST Diagnosis: Rash[ICD9: 782.1] Diagnosis: Joint pain[ICD9: 719.40] Caren ANDERS [facility] CPT-4: 62010 06/04/2012 ([id number]) PREV VISIT E ST AGE 40-64 Diagnosis: ROUTINE GYNE EXAM[ICD9: V72.31] Diagnosis: ROUTINE MEDICAL EXAM[ICD9: V70.0] Diagnosis: MIGRAINE NOS/NOT INTRCBL[ICD9: 346.90] Caren CEE [facility] CPT-4: 89953 12/21/2011 OFFICE/OUTPATIENT SIT EST Diagnosis: Hemorrhoid[ICD9: 455.6] Diagnosis: Constipation[ICD9: 564.00] Diagnosis: Rash[ICD9: 782.1] Caren ANDERS [facility] CPT-4: 35681 10/07/2011 OFFICE/OUTPATIENT SIT EST Diagnosis: HYPERTENSION[ICD9: 401.9] Diagnosis: MIGRAINE NOS/NOT INTRCBL[ICD9: 346.90] Diagnosis: DIZZINESS/VERTIGO[ICD9: 780.4] Diagnosis: EUSTACHIAN TUBE DYSFUNCTION[ICD9: 381.81] Diagnosis: Plantar warts[ICD9: 078.12] Caren COBIANER DO [facility] CPT-4: 95509 09/05/2011 OFFICE/OUTPATIENT SIT EST Diagnosis: SINUSITIS, ACUTE[ICD9: 461.9] Diagnosis: COUGH[ICD9: 786.2] Diagnosis: PHARYNGITIS, ACUTE[ICD9: 462] Diagnosis: DIARRHEA[ICD9: 787.91] Caren ANDERS DO [facility] CPT-4: 26404 04/28/2011 OFFICE/OUTPATIENT SIT EST Diagnosis: Finger pain[ICD9: 729.5] Diagnosis: Nasal pain[ICD9: 478.19] Diagnosis: MIGRAINE NOS/NOT INTRCBL[ICD9: 346.90] Diagnosis: Metrorrhagia[ICD9: 626.6] Caren GARBERLINE MpRajni ARANZAER DO [facility] CPT-4: 95475 04/13/2011 OFFICE/OUTPATIENT SIT EST Diagnosis: Frequent urination[ICD9: 788.41] Caren Robertchandrikacara GARBERCAREN MpRajni ARANZAER DO [facility] CPT-4: 73529 02/04/2011 PREV VISIT EST AGE 4 0-64 Anni ACEVESQUELINE Evelyn COBIANER DO [facility] CPT-4: 70228 12/06/2010 SPECIMEN HANDLING Anni Brennan CAREN MpRajni ARANZAER DO [facility] CPT-4: 42814 12/06/2010 ([id number]) OFFICE/OUTPA TIENT VISIT, EST Caren Robertchandrikacara CAREN MpRajni ROBERT NDER DO [facility] CPT-4: 01796 04/14/2010 ([id number]) OFFICE/OUTPA TIENT VISIT, EST Carenjuana GARBERLINE SRajni ROBERT NDER DO [facility] CPT-4: 88202 02/16/2010 ([id number]) OFFICE/OUTPA TIENT VISIT, EST Caren Cobiancara CAREN SRajni ROBERT NDER DO [facility] CPT-4: 87106 02/03/2010 ([id number]) OFFICE/OUTPA TIENT VISIT, EST Caren Robertchandrikacara CAREN SRajni ROBERT NDER DO [facility] CPT-4: 63616 01/27/2010 ([id number]) OFFICE/OUTPA TIENT VISIT, EST Caren Chago CHAUDHARY S. ORE NDELong DO [facility] CPT-4: 15250 01/25/2010 ([id number]) PREV VISIT, EST, AGE 40-64 Anni GARBERLINE Evelyn ANDERS DO [facility] CPT-4: 26122 12/08/2009 ([id number]) OFFICE/OUTPA TIENT VISIT, EST Caren Aranzacara PERSON NDER DO [facility] CPT-4: 76413 09/01/2009 Plan of Care Planned Activity Notes C odes Status Date Visit Diagnosis Plan: Essential (primary) hypertension Discussion: stable on current medications. rtc 6 months for annual or sooner if needed. will recheck labs at annual. ICD-9 : 401.9 ICD-10 : I10 01/15/2019 Appointment: Silvia Ramírez [address] [facility] FOLLOW UP 01/15/2019 Patient Education: High Blood [...] 466.0 ICD-10 : J20.9 07/20/2018 Appointment: Nicol rAroyo [address] [facility] 07/20/2018 Patient Education: prednisone- [employer] Coupon [phone] Completed 07/20/2018 Patient Education: [facility] - Saving Delfino Reid HFA - 18-64 - Dynamic Portal ID Completed 07/20/2018 Patient Education: azithromycin- [employer] Coupon [phone] Completed 07/20/2018 Appointment: Caren Anders WPtel: [phone] [facility] US LAB 06/29/2018 Visit Diagnosis Plan: Encounter for scre ening mammogram for malignant neoplasm of breast Discussion: Mammogram ordered ICD-9 : V76.12 ICD-10 : Z12.31 06/11/2018 Visit Diagnosis Plan: Encounter for gene ral adult medical examination without abnormal findings Discussion: Will return in 2 weeks for fasting lab Tdap given Will check on Shingrix Mediterranean diet with combo cardio/weight bearing exercise ICD-9 : V70.9 ICD-10 : Z00.00 06/11/2018 Visit Diagnosis Plan: Migraine with aura , not intractable, without status migrainosus Discussion: Stable after PT and doing da beth stretches ICD-9 : 346.20 ICD-10 : G43.109 06/11/2018 Appointment: Caren Anders WPtel: [address] [place], [place] [address] Annual Well Visit 06/11/2018 Patient Education: Valtrex- [employer] Coupon [id number] Completed 06/11/2018 Patient Education: mupirocin calcium- Op [employer] Coupon [id number] Completed 06/11/2018 Visit Diagnosis Plan: Encounter for [...] 04/05/2017 Visit Diagnosis Plan: Encounter for gene [facility] adult medical examination without abnormal findings Discussion: Fating lab drawn Update colonoscopy ICD-9 : V70.9 ICD-10 : Z00.00 04/05/2017 Appointment: Caren Anders WPtel: [facility] Annual Well Visit 04/05/2017 Patient Education: Patient Medication Summary Completed 04/05/2017 Care Plan: Referral Order SNOMED-CT : [id number] Pending 04/05/2017 Patient Education: Patient Medication Summary Completed 08/02/2016 Care Plan: MAMMOGRAM SCREENING LOINC : 57263-3 Pending 08/02/2016 Visit Plan: Injection as above [...] up PRN 02/12/2016 Appointment: Chiara Phelan [address] [facility] 02/10 confirmed~sl ACUTE ILLNESS 02/12/2016 Patient Education: Patient Medication Summary Completed 02/12/2016 Visit Plan: Rxs as above OTC meds r eviewed - avoid decongestants Rest, fluids, vicks, humidifier, etc Follow up PRN 01/25/2016 Visit Plan: Rxs as above OTC meds r eviewed - avoid decongestants Rest, fluids, vicks, humidifier, etc Follow up PRN 01/25/2016 Appointment: Chiara Phelan Jeannine5 [facility] ACUTE ILLNESS 01/25/2016 Patient Education: Patient Medication [...] Follow up PRN 10/01/2015 Appointment: Chiara Phelan Jeannine5 [facility]66[facility] ACUTE ILLNESS 10/01/2015 Patient Education: Patient Medication Summary Completed 10/01/2015 Visit Plan: Obtain lab results Pap done Mammogram ordered Patient awaiting on Dr. Cuello to restart botox for migraines 08/04/2015 Appointment: Caren Anders WPtel: [address] [place], [place] [address] 08/02confirmed-sp Annual Well Visit 08/04/2015 Patient Education: Patient Medication Summary Completed 08/04/2015 Care Plan: MAMMOGRAM SCREENING LOINC : 30577-3 Ordered 08/04/2015 Patient Education: Patient Medication Summary Completed 07/29/2015 Care Plan: CBC Ordered 07/29/2015 Visit Plan: Discussed likely perime nopause Will observe through July and fwup then at [facility] with fasting lab including hormone levels If bleeding returns will proceed with pelvic US Check into chiropractor for ma nipulation for right low back/hip pain 05/27/2015 Visit Plan: Discussed likely perime nopause Will observe through July and fwup then at [facility] with fasting lab including hormone levels If bleeding returns will proceed with pelvic US Check into chiropractor for ma nipulation for right low back/hip pain 05/27/2015 Appointment: Caren Anders WPtel: [address] [place], [place] [phone] 05/26/15 vm cn 05/26/15 appt confirmed c n ACUTE ILLNESS 05/27/19 Patient Education: Patient Medication Summary Completed 05/27/2015 Referral: Ignacio Esposito WPtel: [facility] [address] [id number] [place] Referral Initiated 04/07/2015 Referral: Caren Anders WPtel: [address] [place], [place] [phone] 03/26/15 Arrival time 9:30 am Procedure 9:45 am. @ [facility] [address] [facility] [address] 307 Come sleep deprived(4 hours or less) clean hair, no product in hair, no caffeen Initiated 03/26/2015 Visit Plan: Toradol now with compaz ine po when gets home Proceed with updated EEG/neurology evaluation--discussed may need to go on antiseizure meds and drop out of migraine study No driving for 6mos Discussed w [facility] Dr. Cuello at [facility] in [place]--he wants to see her in next 1-2weeks 03/10/2015 Appointment: Caren Anders WPtel: [address] [place], [place] [phone] ACUTE ILLNESS 03/10/2015 Patient Education: Patient Medication Summary Completed 03/10/2015 Appointment: Caren Anders WPtel: [address] [place], [place] [id number] LAB 07/29/2014 Patient Education: Patient Medication Summary Completed 07/29/2014 Visit Plan: Check Fasting lab Mammo gram ordered Pap next year Lamisil for 3mos with monthly LFTs 06/30/2014 Appointment: Caren Anders WPtel: [address] [place] [address] Annual Well Visit 06/30/2014 Patient Education: Patient Medication Summary Completed 06/30/2014 Appointment: Caren Anders WPtel: [address] [place], [place] [address] Annual Well Visit 06/18/2014 Appointment: Caren Anders WPtel: [address] [place] [address] ACUTE ILLNESS 06/03/2014 Appointment: Lyndsey Thorpe WPtel: [address] [place] [address] 02/05 ACUTE ILLNESS 02/06/2014 Visit Plan: Benadryl 25mg q HS Clar itin 10mg q AM Prednisone for 1week Call in 1week on cough and rash 08/12/2013 Appointment: Caren Anders WPtel: [address] [place] [address] 08/09 FOLLOW UP 08/12/2013 Patient Education: Patient Medication Summary Completed 08/12/2013 Visit Plan: To [facility] for CXR PA and Lateral Added Macrobid to current antibiotics. Recommended referal to Dr Alejo's office for resistant UTI's 05/31/2013 Appointment: Lyndsey Thorpe WPtel: [address] [place], [place] [phone] ACUTE ILLNESS 05/31/2013 Patient Education: Patient Medication Summary Completed 05/31/2013 Visit Plan: Kenalog 40 mg / Depo Me droll 40 mg IM now Complete antibiotics. 05/27/2013 Appointment: Lyndsey Thorpe WPtel: [address] [place], [place] [phone] ACUTE ILLNESS 05/27/2013 Patient Education: Patient Medication Summary Completed 05/27/2013 Visit Plan: Lamisil for 3mos Nystat in/TAC topically Check fasting lab 02/26/2013 Appointment: Caren Anders WPtel: [address] [place] [address] 02/25 ACUTE ILLNESS 02/26/2013 Patient Education: Patient [...] Mycoplasma infection) 11/29/2012 Appointment: Anni Brennan WPtel: [address] [place] [address] FOLLOW UP 11/29/2012 Patient Education: Patient Medication Summary Completed 11/29/2012 Visit Plan: CBC and mycoplasma lab draw. Levaquin and medrol dose pack with codeine/guiaf cough syrup. 11/12/2012 Appointment: Anni Brennan WPtel: [address] [place] [address] ACUTE ILLNESS 11/12/2012 Patient Education: Patient Medication Summary Completed 11/12/2012 Visit Plan: Azithromyacin and medro l dose pack. Will focus on hydration and rest. Pt. will notify if symptoms worsen or do not improve. 07/30/2012 Appointment: Anni Brennan WPtel: [address] [place], [place] [phone] ACUTE ILLNESS 07/30/2012 Patient Education: Patient Medication Summary Completed 07/30/2012 Appointment: Caren Anders WPtel: [address] [place], [place] [phone] LAB 06/05/2012 Patient Education: Patient Medication Summary [...] from scratching. 06/04/2012 Appointment: Anni Brennan WPtel: [address] [place], [place] [phone] ACUTE ILLNESS 06/04/2012 Patient Education: Patient Medication Summary Completed 06/04/2012 Visit Plan: Pap done Mammo ordered Pt has started botox for Migraines--next shots end of this month Fasting lab in 12/21/2011 Appointment: Caren Anders WPtel: [phone] [facility] PAP 12/21/2011 Patient Education: Patient Medication Summary Completed 12/21/2011 Visit Plan: Encouraged fluids and c ontinued use of stool softener. Pt. reports long standing concerns with constipation. Discussed that will likely proceed with colonoscopy. Referral to Dr. Long. Will apply beta methasone to rash and use rectal foam and topical dibucaine. 10/07/2011 Appointment: Anni Brennan WPtel: [phone] [facility] ACUTE ILLNESS 10/07/2011 Patient Education: Patient Medication [...] for now 09/05/2011 Appointment: Caren Anders WPtel: [phone] [facility] FOLLOW UP 09/05/2011 Patient Education: Patient Medication Summary Completed 09/05/2011 Visit Plan: imodium. Discussed the importance of hydration. Phoned Cefuroxime and codeine/guiaf into [facility]. Pt. will notify if symptoms worsen. 04/28/2011 Appointment: Anni Brennan WPtel: [address] [place], [place] [address] ACUTE ILLNESS 04/28/2011 Patient Education: Patient Medication Summary Completed 04/28/2011 Visit Plan: Use Aleve BID Observe n ose and finger Check Chem 7, estradiol, FSH, LH, TSH 04/13/2011 Appointment: Caren Anders WPtel: [address] [place], [place] [phone] ACUTE ILLNESS 04/13/2011 Patient Education: Patient Medication Summary Completed 04/13/2011 Visit Plan: Septra ds. and Pyridium . Urine sent for culture. Pt. will be notified of culture results. Pt will notify if symptoms are worsening. Will consider lab and imaging studies if symptoms worsen. 02/04/2011 Appointment: Anni Brennan WPtel: [address] [place] [address] ACUTE ILLNESS 02/04/2011 Patient Education: Patient Medication Summary Completed 02/04/2011 Appointment: Caren Anders WPtel: [address] [place], [place] [phone] LAB 12/21/2010 Patient Education: Patient Medication Summary Completed 12/21/2010 Visit Plan: Dec 13. appnt with trevon chamorro specialist. will ask about EEG at next appnt. Fasting labs: CBC, CMP, TSH, Free T4 and Lipids. Discussed slight discoloration above rt. eyebrow. Will consider surgical refer ral if area does not resolve. Mammo scheduled. 12/06/2010 Appointment: Anni Brennan WPtel: [address] [place], [place] [phone] PAP 12/06/2010 Patient Education: Patient Medication Summary [...] colon cancer 04/14/2010 Appointment: Caren Anders WPtel: [address] [place] [address] FOLLOW UP 04/14/2010 Patient Education: Patient Medication Summary Completed 04/14/2010 Appointment: Caren Anders WPtel: [address] [place] [address] LAB 03/17/2010 Visit Plan: Increase Topamax to 50m g BID Cont Flexeril See Neurology next week 02/16/2010 Appointment: Caren Anders WPtel: [address] [place] [address] FOLLOW UP 02/16/2010 Patient Education: Patient Medication Summary Completed 02/16/2010 Visit Plan: Pt will seek re-eval if symptoms worsen. 02/03/2010 Appointment: Anni Brennan WPtel: [address] [place] [address] ACUTE ILLNESS 02/03/2010 Patient Education: Patient Medication Summary Completed 02/03/2010 Visit Plan: Start Topamax for proph ylaxis See Neurology Discussed triggers such as chocolate Start Cipro as ordered May try Midrin and Compazine as ordered Off work rest of week 01/27/2010 Appointment: Caren Anders WPtel: [address] [place] [address] ER Follow UP 01/27/2010 Patient Education: Patient Medication Summary Completed 01/27/2010 Visit Plan: Check CT head Suspect c omplex migraine vs TIA--esequiel await CT results 01/25/2010 Appointment: Caren Anders WPtel: [address] [place] [address] ACUTE ILLNESS 01/25/2010 Patient Education: Patient Medication Summary Completed 01/25/2010 Appointment: Caren Anders WPtel: [address] [place] [address] LAB 12/09/2009 Patient Education: Patient Medication Summary Completed 12/09/2009 Visit Plan: Claudia will come in [facility] for Lipids, CBC, CMP and TSH. Mammo is scheduled with [facility]. 12/08/2009 Appointment: Anni Brennan WPtel: [phone] [facility] PAP 12/08/2009 Patient Education: Patient Medication Summary Completed 12/08/2009 Visit Plan: Add Macrobid Toradol gi weston Zipsor 25mg QID for 5 days OMT done Call in 2days on back 09/01/2009 Appointment: Caren Anders WPtel: [address] [facility] ACUTE ILLNESS 09/01/2009 Patient Education: Patient Medication Summary Completed 09/01/2009 Appointment: Caren Anders [facility]el: [facility] [facility] 08/26/2009 Patient Education: Patient Medication Summary Completed 08/26/2009 Referral: Partha Long WPtel: [address] [id number] [place] Referral sent. Dr. Coburn's office will call patient to schedule. Completed Instructions Comment . imodium. Discusse d the importance of hydration. Phoned Cefuroxime and codeine/guiaf into [facility]. Pt. will notify if symptoms worsen. . Add Macrobid Toradol given Zipsor 25mg QID for 5 days OMT done Call in 2days on back . Start Topamax for prophylaxis See Neurology Discussed triggers such as chocolate Start Cipro as ordered May try Midrin and Compazine as ordered Off work rest of week . Office dip abnorma l Culture pending Rx as above Supportive care reviewed Follow up PRN . Office dip abnorma l Culture pending Rx as above Supportive care reviewed Follow up PRN . Office dip abnorma l Culture pending Rx as above Supportive care reviewed Follow up PRN . Increase Topamax t o 50mg BID Cont Flexeril See Neurology next week . Reports that rash has been present in one form or another since the beginning of the year. Reports that betamethasone has been helpful in October. Possible dermatology consult if no improvment. Diflucan. Nystatin powder and will use betamethasone also. (Recently finished a round of antibiotics for Mycoplasma infection) . Pap done Mammo ordered Pt has started botox for Migraines--next shots end of this month Fasting lab in April . Use Aleve BID Observe nose and finger Check Chem 7, estradiol, FSH, LH, TSH . Toradol now with c ompazine po when gets home Proceed with updated EEG/neurology evaluation--discussed may need to go on antiseizure meds and drop out of migraine study No driving for 6mos Discussed with Dr. Cuello at clinic in [place]--he wants to see her in next 1-2weeks . Check CT head Suspect complex migraine vs TIA--esequiel await CT results . Rxs as above OTC meds reviewed - avoid decongestants Rest, fluids, vicks, humidifier, etc Follow up PRN . Rxs as above OTC meds reviewed - avoid decongestants Rest, fluids, vicks, humidifier, etc Follow up PRN . Pt will seek re-ev al if symptoms worsen. . Discussed likely p erimenopause Will observe through July and then at [facility] with fasting lab including hormone levels If bleeding returns will proceed with pelvic US Check into chiropractor for manipulation for right low back/hip pain . Discussed likely p erimenopause Will observe through July and up then at [facility] with fasting lab including hormone levels If bleeding returns will proceed with pelvic US Check into chiropractor for manipulation for right low back/hip pain . To [facility] fo r CXR PA and Lateral Added Macrobid to current antibiotics. Recommended referal to Dr Alejo's office for resistant UTI's . fsating lab: CBC, CMP, TSH, Free [...] 25mg q PM Check 2-D Echo . Lisinopril 1/2 in AM and Atenolol 1/2 pm for 5 days then stop lisinopril and increase atenolol to 25mg q PM Check 2-D Echo Long discusssion about Botox and clinical trial Start omnaris q HS Pt will try otc wart remover for feet for now . Obtain lab results Pap done Mammogram ordered Patient awaiting on Dr. Cuello to restart botox for migraines . Continue elavil bu t switch to bedtime See if headaches improve once start CPAP Increase stool softener to 2 po BID and add Magnesium Don't think need to proceed with colonoscopy at this time since constipation is side effect of elavil and pt not having bleeding and no family history of colon cancer . Benadryl 25mg q HS Claritin 10mg q AM Prednisone for 1week Call in 1week on cough and rash . Claudia will come i n fasting for Lipids, CBC, CMP and TSH. Mammo is scheduled with [facility]. . Septra ds. and Py ridium. Urine sent for culture. Pt. will be notified of culture results. Pt will notify if symptoms are worsening. Will consider lab and imaging studies if symptoms worsen. . Check Fasting lab Mammogram ordered Pap next year Lamisil for 3mos with monthly LFTs . Injection as above Rx for levaquin - pt reports she tolerates well Continue supportive care Follow up PRN . Injection as above Rx for levaquin - pt reports she tolerates well Continue supportive care Follow up PRN . Injection as above Rx for levaquin - pt reports she tolerates well Continue supportive care Follow up PRN . Azithromyacin and medrol dose pack. Will focus on hydration and rest. Pt. will notify if symptoms worsen or do not improve. . CBC and mycoplasma lab draw. Levaquin and medrol dose pack with codeine/guiaf cough syrup. . Dec 13. appnt wi th headache specialist. will ask about EEG at next appnt. Fasting labs: CBC, CMP, TSH, Free T4 and Lipids. Discussed slight discoloration above rt. eyebrow. Will consider surgical referral if area does not resolve. Mammo scheduled. . Lamisil for 3mos Nystatin/TAC topically Check fasting lab . Kenalog 40 mg / De po Medroll 40 mg IM now Complete antibiotics. . Encouraged fluids and continued use of stool softener. Pt. reports long standing concerns with constipation. Discussed that will likely proceed with colonoscopy. Referral to Dr. Long. Will apply betamethasone to rash and use rectal foam and topical dibucaine.
--- OUTSIDE RECORDS SUMMARY | 2019-10-11 18:39 | XMS REPORT | CCD ---
Author Author Claudia Anders D.O. Organization [facility] Address [address] [place] [address] Phone Care Team Providers Care Instrument Panel Assembler Name Role Phone Craen Anders D.O., PP Unavailable CCM Unavailable Summary Purpose Interface Exchange Insurance Providers Payer name Policy type / Coverage type Covered libertarian ID Effective Begin Date Effective End Date Blue Cross Blue Shield Blue Cross/Bl ue Shield [id number] Un known Family history Father Diagnosis Age At Onset Congestive heart failure Unknown Cancer Unknown Diabetes mellitus Type 2 Unknown Social History Social History Element Codes Description Effective Dates Tobacco history SNOMED CT: 8202214 Former smoker 02/03/2015 Allergies, Adverse Reactions, Alerts [...] Fill Instructions Zantac 300 mg tablet RxNorm: 205073 TAKE ONE TABLET BY MOUTH EVERY NIGHT AT BEDTIME 01/15/2019 03/15/2019 Active atenolol 25 mg tablet RxNorm: 049391 Tablet(s) TAKE ONE TABLET BY MOUTH DAILY , NEEDS APPT. BEFORE FURTHER REFILLS 01/08/2019 02/06/2019 Active atenolol 25 mg tablet RxNorm: 998228 Tablet(s) TAKE ONE TABLET BY MOUTH DAILY , NEEDS APPT. BEFORE FURTHER REFILLS 12/31/2018 01/07/2019 Inactive atenolol 25 mg tablet RxNorm: 433330 TAKE ONE TABLET BY MOUTH DAILY, NEEDS AP PT. BEFORE FURTHER REFILLS 12/14/2018 12/31/2018 Inactive tizanidine 4 mg tablet RxNorm: 205838 TAKE ONE TABLET BY MOUTH EVERY 8 HOURS A S NEEDED FOR MUSCLE SPASMS 11/16/2018 12/25/2018 Inactive Naprosyn 500 mg tablet RxNorm: 226358 1 Tablet(s) PO BID 10/01/2018 01/28/2019 Active Maxalt 10 mg tablet RxNorm: 454353 1 Tablet(s) PO at headache onset. May re peat in 2 hours if headache remains. Max of 2/24hr 10/01/2018 11/29/2018 Inactive atenolol 25 mg tablet RxNorm: 051887 Tablet(s) TAKE ONE TABLET BY MOUTH DAILY . 10/01/2018 12/13/2018 In active atenolol 25 mg tablet RxNorm: 578852 TAKE ONE TABLET BY MOUTH DAILY. NEED APPOINTMENT BEFORE FURTHER REFILLS. 09/24/2018 09/30/2018 Inactive atenolol 25 mg tablet RxNorm: 374072 TAKE ONE TABLET BY MOUTH DAILY, NEEDS AP PT. BEFORE FURTHER REFILLS 09/11/2018 09/23/2018 Inactive Naprosyn 500 mg tablet RxNorm: 516716 1 Tablet(s) PO BID Due for annual labs a nd appointment 09/11/2018 09/30/2018 Inactive atenolol 25 mg tablet RxNorm: 840247 TAKE ONE TABLET BY MOUTH DAILY, NEEDS AP PT. BEFORE FURTHER REFILLS 08/29/2018 09/10/2018 Inactive doxycycline hyclate 100 mg tablet RxNorm: 0832571 1 Tablet(s) PO BID 07/27/2018 08/05/2018 Inactive doxycycline hyclate 100 mg tablet RxNorm: 6765440 1 Tablet(s) PO BID 07/27/2018 07/26/2018 Inactive Ventolin HFA 90 mcg/ actuation aerosol inhaler RxNorm: 0175776 2 Puff(s) INH Q6H 07/20/2018 08/18/2018 In active prednisone 20 mg tablet RxNorm: 397289 take 2 tabs for 3 days, then 1 tab for 3 days 07/20/2018 07/25/2018 Inactive azithromycin 250 mg tablet RxNorm: 835667 Take 2 tabs today and one tab days 2-5 07/20/2018 07/25/2018 In active z-pack atenolol 25 mg tablet RxNorm: 142909 TAKE ONE TABLET BY MOUTH DAILY, NEEDS AP PT. BEFORE FURTHER REFILLS 07/13/2018 08/26/2018 Inactive mupirocin 2 % topica l cream RxNorm: 930785 Application TOP BID 06/11/2018 01/14/2019 Inactive Valtrex 1 gram tablet RxNorm: 577500 1 Tablet(s) PO BID 06/11/2018 06/20/2018 Inactive atenolol 25 mg tablet RxNorm: 368034 1 Tablet(s) PO QD NEEDS APPOINTMENT BEFO RE FURTHER REFILLS 05/14/2018 07/12/2018 Inactive Naprosyn 500 mg tablet RxNorm: 640988 1 Tablet(s) PO BID Due for annual labs a nd appointment 04/12/2018 05/11/2018 Inactive Zantac 300 mg tablet RxNorm: 074039 TAKE ONE TABLET BY MOUTH EVERY NIGHT AT BEDTIME 04/09/2018 07/07/2018 Inactive tizanidine 4 mg tablet RxNorm: 188813 TAKE ONE TABLET BY MOUTH EVERY 8 HOURS A S NEEDED FOR MUSCLE SPASMS 02/20/2018 04/20/2018 Inactive Maxalt 10 mg tablet RxNorm: 429549 Tablet(s) TAKE ONE TABLET BY MOUTH NE EDED FOR HEADACHE 01/09/2018 03/09/2018 Inactive Naprosyn 500 mg tablet RxNorm: 104882 Tablet(s) TAKE ONE TABLET BY MOUTH TWICE A DAY 01/08/2018 04/12/2018 Inactive atenolol 25 mg tablet RxNorm: 381835 1 Tablet(s) PO QD 01/08/2018 05/14/2018 Inactive Naprosyn 500 mg tablet RxNorm: 271202 TAKE ONE TABLET BY MOUTH TWICE A DAY 12/10/2017 01/08/2018 In active tizanidine 4 mg tablet RxNorm: 591652 1 Tablet(s) PO Q8H as needed for muscle spasm 11/27/2017 11/26/2017 Inactive Maxalt 10 mg tablet RxNorm: 817814 TAKE ONE TABLET BY MOUTH NEEDED FOR H EADACHE 11/13/2017 01/09/2018 Inactive Naprosyn 500 mg tablet RxNorm: 952635 TAKE ONE TABLET BY MOUTH TWICE A DAY 11/13/2017 12/09/2017 In active atenolol 25 mg tablet RxNorm: 471717 1 Tablet(s) PO QD 09/06/2017 01/08/2018 Inactive Naprosyn 500 mg tablet RxNorm: 648508 1 Tablet(s) PO BID 09/04/2017 11/02/2017 Inactive Maxalt 10 mg tablet RxNorm: 685943 1 Tablet(s) PO as needed for headache 08/07/2017 11/12/2017 In active Naprosyn 500 mg tablet RxNorm: 972716 1 Tablet(s) PO BID 07/07/2017 09/04/2017 Inactive Naprosyn 500 mg tablet RxNorm: 886595 1 Tablet(s) PO BID TAKE ONE TABLET BY MO UTH TWICE A DAY 06/08/2017 07/07/2017 Inactive tizanidine 4 mg tablet RxNorm: 909055 1 Tablet(s) PO Q8H as needed for muscle spasm 05/10/2017 11/27/2017 Inactive atenolol 25 mg tablet RxNorm: 698158 1 Tablet(s) PO QD 05/10/2017 09/06/2017 Inactive Maxalt 10 mg tablet RxNorm: 642277 1 Tablet(s) PO as needed for headache 05/10/2017 08/06/2017 In active atenolol 25 mg tablet RxNorm: 531931 1 Tablet(s) PO QD LAST REFILL---NEEDS UP DATED LAB AND APPOINTMENT 04/04/2017 05/03/2017 Inactive Zantac 300 mg tablet RxNorm: 023406 Tablet(s) TAKE ONE TABLET BY MOUTH EVERY NIGHT AT BEDTIME 04/03/2017 07/31/2017 Inactive atenolol 25 mg tablet RxNorm: 906142 1 Tablet(s) PO QD LAST REFILL---NEEDS UP DATED LAB AND APPOINTMENT 03/02/2017 04/04/2017 Inactive atenolol 25 mg tablet RxNorm: 515104 1 Tablet(s) PO QD LAST REFILL---NEEDS UP DATED LAB AND APPOINTMENT 02/01/2017 05/10/2017 Inactive Naprosyn 500 mg tablet RxNorm: 953417 1 Tablet(s) PO BID TAKE ONE TABLET BY MO UTH TWICE A DAY 01/02/2017 06/08/2017 Inactive atenolol 25 mg tablet RxNorm: 807310 1 Tablet(s) PO QD Need Labs and appointm ent 12/26/2016 02/01/2017 In active Naprosyn 500 mg tablet RxNorm: 240352 1 Tablet(s) PO BID TAKE ONE TABLET BY MO [facility] TWICE A DAY 12/05/2016 01/02/2017 Inactive Naprosyn 500 mg tablet RxNorm: 898664 Tablet(s) TAKE ONE TABLET BY MOUTH TWICE A DAY 11/07/2016 12/05/2016 Inactive Naprosyn 500 mg tablet RxNorm: 653764 Tablet(s) TAKE ONE TABLET BY MOUTH TWICE A DAY 10/06/2016 11/07/2016 Inactive Naprosyn 500 mg tablet RxNorm: 627805 TAKE ONE TABLET BY MOUTH TWICE A DAY 09/04/2016 10/03/2016 In active Naprosyn 500 mg tablet RxNorm: 834468 TAKE ONE TABLET BY MOUTH TWICE A DAY 07/01/2016 08/29/2016 In active Naprosyn 500 mg tablet RxNorm: 436173 TAKE ONE TABLET BY MOUTH TWICE A DAY 04/27/2016 06/25/2016 In active Zantac 300 mg tablet RxNorm: 463329 TAKE ONE TABLET BY MOUTH EVERY NIGHT AT BEDTIME 03/09/2016 04/03/2017 Inactive Levaquin 500 mg tablet RxNorm: 822276 1 Tablet(s) PO QD 02/12/2016 02/18/2016 Inactive azithromycin 250 mg tablet RxNorm: 566287 2 Tablet(s) PO on day one then 1 tab on days 2-5 01/25/2016 01/24/2016 Inactive Medrol (Camilo) 4 mg ta blets in a dose pack RxNorm: 842450 Take as directed 01/25/2016 04/04/2017 In active Naprosyn 500 mg tablet RxNorm: 890576 1 Tablet(s) PO BID 01/15/2016 04/13/2016 Inactive Brisdelle 7.5 mg cap violeta RxNorm: 0189421 1 Capsule(s) PO QHS 12/10/2015 04/04/2017 Inactive atenolol 25 mg tablet RxNorm: 459068 TAKE ONE TABLET BY MOUTH DAILY 12/04/2015 12/26/2016 In active Maxalt 10 mg tablet RxNorm: 791895 1 Tablet(s) PO as needed for headache 10/05/2015 05/09/2017 In active Bactrim DS 800 mg-16 0 mg tablet RxNorm: 392531 1 Tablet(s) PO BID 10/01/2015 10/07/2015 Inactive Zantac 300 mg tablet RxNorm: 321058 Tablet(s) TAKE ONE TABLET BY MOUTH EVERY NIGHT AT BEDTIME 10/01/2015 11/29/2015 Inactive atenolol 25 mg tablet RxNorm: 447971 TAKE ONE TABLET BY MOUTH DAILY 06/09/2015 08/07/2015 In active Naprosyn 500 mg tablet RxNorm: 996521 TAKE ONE TABLET BY MOUTH TWICE A DAY 05/29/2015 01/15/2016 In active Zantac 300 mg tablet RxNorm: 378724 Tablet(s) TAKE ONE TABLET BY MOUTH EVERY NIGHT AT BEDTIME 03/30/2015 10/01/2015 Inactive Compazine 10 mg tablet RxNorm: 825388 1 Tablet(s) PO TID as needed for nausea 03/10/2015 05/26/2015 In active Prevacid 30 mg capsu le,delayed release RxNorm: 340465 Capsule(s) TAKE ONE C APSULE BY MOUTH ONCE A DAY 12/19/2014 05/17/2015 Inactive Naprosyn 500 mg tablet RxNorm: 226583 1 Tablet(s) PO BID 12/02/2014 03/01/2015 Inactive Zantac 300 mg tablet RxNorm: 248606 TAKE ONE TABLET BY MOUTH EVERY NIGHT AT BEDTIME 09/18/2014 03/30/2015 Inactive Naprosyn 500 mg tablet RxNorm: 495771 1 Tablet(s) PO BID 09/04/2014 12/02/2014 Inactive atenolol 25 mg tablet RxNorm: 306506 1 Tablet(s) PO QD 07/17/2014 03/09/2015 Inactive Zantac 300 mg tablet RxNorm: 239235 1 Tablet(s) PO QHS 06/30/2014 09/17/2014 Inactive Lamisil 250 mg tablet RxNorm: 636465 1 Tablet(s) PO QD 06/30/2014 09/27/2014 Inactive Treximet 85 mg-500 m g tablet RxNorm: 573682 Tablet(s) PO PRN as n eeded 06/30/2014 03/09/2015 In active Prevacid 30 mg capsu le,delayed release RxNorm: 983046 TAKE ONE CAPSULE BY M OUTH ONCE A DAY 06/16/2014 12/19/2014 Inactive Treximet 85 mg-500 m g tablet RxNorm: 153437 Tablet(s) PO PRN as n eeded 06/06/2014 06/29/2014 In active Pepcid 20 mg tablet RxNorm: 871963 1 Tablet(s) PO QHS 03/19/2014 06/29/2014 Inactive [SAVINGS FOR UNINSURED PATIENTS -- BIN:[id number], PCN: [id number], Group: [id number], ID# [id number], Process claim through [employer], for questions: . THIS IS NOT INSURANCE.] atenolol 25 mg tablet RxNorm: 822699 1 Tablet(s) PO QD 01/15/2014 07/17/2014 Inactive Pepcid 20 mg tablet RxNorm: 753266 1 Tablet(s) PO QHS 12/23/2013 12/22/2013 Inactive Pepcid 20 mg tablet RxNorm: 972442 1 Tablet(s) PO QHS 12/23/2013 03/19/2014 Inactive [SAVINGS FOR UNINSURED PATIENTS -- BIN:[id number], PCN: [id number], Group: [id number], ID# [id number], Process claim through [employer], for questions: . THIS IS NOT INSURANCE.] Prevacid 30 mg capsu le,delayed release RxNorm: 017433 1 Capsule(s) PO QD 12/23/2013 06/15/2014 In active [SAVINGS FOR UNINSURED PATIENTS -- BIN:0 71318, PCN: [id number], Group: [id number], ID# [id number], Process claim through [employer], for questions: . THIS IS NOT INSURANCE.] loratadine 10 mg tablet RxNorm: 553206 TAKE ONE TABLET BY MOUTH EVERY MORNING 09/09/2013 04/06/2014 In active nystatin-triamcinolo ne 100,000 unit/g-0.1 % topical cream RxNorm: 2458879 1 Application TOP QHS to rash 08/22/2013 06/29/2014 Inactive prednisone 20 mg tablet RxNorm: 729510 1 Tablet(s) PO BID 08/12/2013 08/18/2013 Inactive loratadine 10 mg tablet RxNorm: 470424 1 Tablet(s) PO QAM 08/12/2013 09/08/2013 Inactive Treximet 85 mg-500 m g tablet RxNorm: 608146 Tablet(s) PO PRN 07/22/2013 07/21/2013 Inactive atenolol 25 mg tablet RxNorm: 864472 1 Tablet(s) PO QD 07/22/2013 01/15/2014 Inactive Prevacid 30 mg capsu le,delayed release RxNorm: 267387 1 Capsule(s) PO BID 07/22/2013 12/22/2013 In active nitrofurantoin macro crystal 100 mg capsule RxNorm: 019175 1 Capsule(s) PO BID 05/31/2013 06/06/2013 In active albuterol sulfate HF A 90 mcg/actuation aerosol inhaler RxNorm: 260234 2 Puff(s) INH QID 05/31/2013 06/13/2013 Inactive azithromycin 250 mg tablet RxNorm: 575300 2 Tablet(s) PO QD 05/27/2013 06/02/2013 Inactive Prevacid 30 mg capsu le,delayed release RxNorm: 768253 1 Capsule(s) PO BID 03/20/2013 07/21/2013 In active Lamisil 250 mg tablet RxNorm: 089129 1 Tablet(s) PO QD 02/26/2013 05/26/2013 Inactive betamethasone eloy te 0.1 % Topical Cream RxNorm: 480810 1 Application TOP BID 11/29/2012 12/12/2012 In active Diflucan 100 mg tablet RxNorm: 612663 1 Tablet(s) PO QD 11/29/2012 12/08/2012 Inactive nystatin 100,000 uni t/gram Topical Powder RxNorm: 417380 1 Gram(s) TOP BID belinda ly to affected areas twice daily 11/29/2012 12/08/2012 Inactive Medrol (Camilo) 4 mg ta blets in a dose pack RxNorm: 574880 Tablet(s) PO as direc nico 11/12/2012 02/25/2013 In active Levaquin 750 mg tablet RxNorm: 829734 1 Tablet(s) PO QD antibiotic 11/12/2012 11/21/2012 Inactive Prevacid 30 mg capsu le,delayed release RxNorm: 904628 1 Capsule(s) PO BID 09/17/2012 03/15/2013 In active azithromycin 250 mg tablet RxNorm: 529892 2 Tablet(s) PO QD 07/30/2012 08/06/2012 Inactive nystatin 100,000 uni t/g Ointment RxNorm: 388387 1 Gram(s) TOP BID belinda ly to affected area twice daily 06/21/2012 06/30/2012 Inactive nystatin 100,000 uni t/g Ointment RxNorm: 886392 1 Gram(s) TOP BID belinda ly to affected area twice daily 06/04/2012 06/13/2012 Inactive Prevacid 30 mg capsu le,delayed release RxNorm: 372063 1 Capsule(s) PO BID 03/01/2012 08/27/2012 In active Omnaris 50 mcg Nasal [place] RxNorm: 904182 2 [place] NASAL QD each nostril 12/21/2011 03/09/2015 In active betamethasone eloy te 0.1 % Topical Cream RxNorm: 586578 1 Application TOP BID 10/07/2011 10/20/2011 In active dibucaine 1 % Rectal Ointment RxNorm: 248283 1 RTL TID 10/07/2011 10/16/2011 Inactive Proctofoam 1 % Topic al Foam RxNorm: 359522 1 TOP BID 10/07/2011 10/16/2011 Inactive Treximet 85 mg-500 m g Tab RxNorm: 287227 Tablet(s) PO Take 1 a t headache onset and may repeat 1 in two hours if needed 09/05/2011 No Stop Date Active Prevacid 30 mg capsu le,delayed release RxNorm: 552364 1 Capsule(s) PO BID 08/30/2011 02/25/2012 In active Flexeril 5 mg tablet RxNorm: 311137 1-2 Tablet(s) PO QHS 08/05/2011 06/29/2014 Inactive prn spasm cefuroxime axetil 50 0 mg Tab RxNorm: 772043 1 Tablet(s) PO BID 04/28/2011 05/07/2011 Inactive Flexeril 5 mg Tab RxNorm: 080970 1-2 Tablet(s) PO QHS 04/20/2011 08/05/2011 Inactive prn spasm Prevacid 30 mg Capsu le, delayed release RxNorm: 246254 1 Capsule(s) PO BID 02/23/2011 08/30/2011 In active Prevacid 30 mg Cap RxNorm: 826608 1 Capsule(s) PO QD 02/21/2011 02/22/2011 Inactive Pyridium 100 mg Tab RxNorm: 6383237 1 Tablet(s) PO TID 02/04/2011 02/05/2011 Inactive will turn urine orange/red. Septra DS 800 mg-160 mg Tab RxNorm: 155977 1 Tablet(s) PO BID 02/04/2011 02/08/2011 Inactive lisinopril 10 mg Tab RxNorm: 030059 1 Tablet(s) PO QD 12/06/2010 01/04/2011 Inactive amitriptyline 10 mg Tab RxNorm: 569444 2 Tablet(s) PO QD 12/06/2010 01/04/2011 Inactive Treximet 85 mg-500 m g Tab RxNorm: 191588 1 Tablet(s) PO 12/02/2010 09/05/2011 Inactive at H A onset, may repeat i po in 2hrs if CHAUHAN remains lisinopril 20 mg Tab RxNorm: 128273 1 Tablet(s) PO QD 09/10/2010 12/06/2010 Inactive Prevacid 30 mg Cap RxNorm: 482198 1 Capsule(s) PO BID 08/09/2010 02/21/2011 Inactive Flexeril 5 mg Tab RxNorm: 060688 1-2 Tablet(s) PO QHS prn spasm 04/14/2010 04/20/2011 In active Topamax 50 mg Tab RxNorm: 301540 1 Tablet(s) PO BID 02/16/2010 04/13/2010 Inactive Topamax 50 mg Tab RxNorm: 956056 1/2 Tablet(s) PO QHS for 1wk then 1 po Q HS 02/15/2010 02/15/2010 In active Cefdinir 300 mg Cap RxNorm: 920857 1 Capsule(s) PO BID One tablet PO twice daily for 10 days. 02/03/2010 02/12/2010 Inactive Topamax 50 mg Tab RxNorm: 481510 1/2 Tablet(s) PO QHS for 1wk then 1 po Q HS 01/27/2010 02/14/2010 In active Flexeril 5 mg Tab RxNorm: 988978 1 Tablet(s) PO TID prn spasm 01/25/2010 02/15/2010 Inactive Macrobid 100 mg Cap RxNorm: 5519092 1 Capsule(s) PO BID 09/01/2009 09/07/2009 Inactive Prevacid 30 mg Cap RxNorm: 330109 1 Capsule(s) PO BID 09/01/2009 09/30/2009 Inactive Flexeril 5 mg Tab RxNorm: 901174 1 Tablet(s) PO TID prn spasm 09/01/2009 09/30/2009 Inactive lisinopril 20 mg Tab RxNorm: 456527 1 Tablet(s) PO QD 08/31/2009 09/10/2010 Inactive atenolol 25 mg Tab RxNorm: 488172 1 Tablet(s) PO QD No Start Date 07/30/2012 Inactive magnesium 100 mg tablet RxNorm: 1 Tablet(s) PO QD No Start Date Active Calcium with Vitamin D 600 mg-400 unit Tab RxNorm: 208899 1 Tablet(s) PO QD No Start Date Active Aspirin 81 mg Tab RxNorm: 308984 1 Tablet(s) PO QD No Start Date Active Brisdelle 7.5 mg cap violeta RxNorm: 1132540 1 Capsule(s) PO QHS No Start Date 12/09/2015 Inactive Prevacid 30 mg Cap RxNorm: 478835 1 Capsule(s) PO QD No Start Date 02/20/2011 Inactive Ultram 50 mg Tab RxNorm: 025924 2 Tablet(s) PO QID prn headache No Start Date 04/13/2010 Inactive tizanidine 4 mg tablet RxNorm: 271868 1 Tablet(s) PO Q8H as needed for muscle spasm No Start Date 05/09/2017 Inactive nystatin-triamcinolo ne 100,000 unit/g-0.1 % topical cream RxNorm: 1720762 1 Application TOP QHS to rash No Start Date 08/21/2013 Inactive Imitrex 100 mg tablet RxNorm: 961887 1 Tablet(s) PO at CHAUHAN onset-September repeat in 6hours as needed No Start Date 08/03/2015 Inactive Treximet 85 mg-500 m g Tab RxNorm: 707241 1 Tablet(s) PO at CHAUHAN onset, may repeat i po in 2hrs if CHAUHAN remains No Start Date 12/02/2010 Inactive alprazolam 0.25 mg t ablet RxNorm: 033211 1 Tablet(s) PO QPM No Start Date 08/03/2015 Inactive amitriptyline 25 mg Tab RxNorm: 632141 1 Tablet(s) PO QAM No Start Date 12/06/2010 Inactive amitriptyline 10 mg Tab RxNorm: 346960 Tablet(s) PO Take 4 tablets by mouth 1 w [place] before period and week of period and 3 tablets other 2 weeks of month No Start Date 09/04/2011 Inactive Omnaris 50 mcg Nasal [place] RxNorm: 246094 2 [place] NASAL QD each nostril No Start Date 12/20/2011 Inactive sertraline 25 mg tablet RxNorm: 801038 1 Tablet(s) PO QD No Start Date 08/03/2015 Inactive atenolol 25 mg tablet RxNorm: 357936 1 Tablet(s) PO QD No Start Date 07/21/2013 Inactive hydrochlorothiazide 25 mg tablet RxNorm: 530804 1 Tablet(s) PO QAM No Start Date 05/26/2015 Inactive Maxalt 10 mg tablet RxNorm: 354525 Tablet(s) PO as needed for headache No Start Date 10/04/2015 Inactive atenolol 25 mg Tab RxNorm: 802217 1/2 Tablet(s) PO QD No Start Date 12/20/2011 Inactive Medrol (Camilo) 4 mg ta blets in a dose pack RxNorm: 503395 Tablet(s) PO as direc nico No Start Date 11/11/2012 Inactive Naprosyn 500 mg tablet RxNorm: 417613 1 Tablet(s) PO BID No Start Date 09/04/2014 Inactive promethazine-codeine 6.25 mg-10 mg/5 mL syrup RxNorm: 347018 PO No Start Date 06/29/2014 Inactive Flexeril 5 mg Tab RxNorm: 574892 2 Tablet(s) PO QHS No Start Date 04/13/2010 Inactive Treximet 85 mg-500 m g tablet RxNorm: 206634 Tablet(s) PO PRN No Start Date 07/21/2013 Inactive cyclobenzaprine 5 mg tablet RxNorm: 864038 1-2 Tablet(s) PO QHS No Start Date 03/09/2015 Inactive atenolol 25 mg tablet RxNorm: 600034 1 Tablet(s) PO QD No Start Date 12/25/2016 Inactive lisinopril 20 mg Tab RxNorm: 999391 1 Tablet(s) PO QD No Start Date 10/06/2011 Inactive Topamax 50 mg Tab RxNorm: 272132 1 Tablet(s) PO BID No Start Date 02/15/2010 Inactive Treximet 85 mg-500 m g Tab RxNorm: 885475 Tablet(s) PO Take 1 a t headache onset and may repeat 1 in two hours if needed No Start Date 09/04/2011 Inactive Stool Softener 100 m g Cap RxNorm: 6691039 3 Capsule(s) PO QD No Start Date [...] Item Item Code Result Date COMPREHENSIVE METABOLIC 71719 AST 15 U/L 06/29/2018 COMPREHENSIVE METABOLIC 61991 ALT 15 U/L 06/29/2018 COMPREHENSIVE METABOLIC 01676 BUN 19 mg/dL 06/29/2018 COMPREHENSIVE METABOLIC 85031 ALBUMIN 4.3 g/dL 06/29/2018 COMPREHENSIVE METABOLIC 15421 CHLORIDE 106 mmol/L 06/29/2018 COMPREHENSIVE METABOLIC 66933 Bili Total 0.6 mg/dL 06/29/2018 COMPREHENSIVE METABOLIC 59357 ALK PHOS 82 U/L 06/29/2018 COMPREHENSIVE METABOLIC 48791 SODIUM 141 mmol/L 06/29/2018 COMPREHENSIVE METABOLIC 12364 CREATININE 0.66 mg/dL 06/29/2018 COMPREHENSIVE METABOLIC 45775 CALCIUM 9.6 mg/dL 06/29/2018 COMPREHENSIVE METABOLIC 88989 POTASSIUM 4.3 mmol/L 06/29/2018 COMPREHENSIVE METABOLIC 00184 Total Protein 7.0 g/dL 06/29/2018 COMPREHENSIVE METABOLIC 52760 Glucose 102 mg/dL 06/29/2018 COMPREHENSIVE METABOLIC 80220 Bicarbonate 29 mmol/L 06/29/2018 COMPREHENSIVE METABOLIC 83065 AGAP 6 mmol/L 06/29/2018 FREE T4 73210 T4 Free 1.04 ng/dL 06/29/2018 GFR CALC 0542602 GFR Afr Amr >60 mL/min 06/29/2018 GFR CALC 6996525 GFR Non Afr Amr >60 mL/min 06/29/2018 LIPID GROUP 43796 Choles terol 197 mg/dL 06/29/2018 LIPID GROUP 37578 Trigly ceride 70 mg/dL 06/29/2018 LIPID GROUP 36814 HDL CH OLESTEROL 45 mg/dL 06/29/2018 LIPID GROUP 96613 Chol/H DL Ratio 4.38 ratio 06/29/2018 LIPID GROUP 86914 NON-HD L Chol 152 mg/dL 06/29/2018 LIPID GROUP 06038 LDL Ch olesterol 138 mg/dL 06/29/2018 THYROID STIMULATING HORMONE 79169 TSH 1.477 uIU/mL 9 COMPLETE BLOOD COUNT 4327076 WBC 5.2 10e9/L 06/29/2018 COMPLETE BLOOD COUNT 2504816 RBC 4.93 10e12/L 9 COMPLETE BLOOD COUNT 2403291 HEMOGLOBIN 14.3 g/dL 06/29/2018 COMPLETE BLOOD COUNT 4131594 HEMATOCRIT 42.9 % 06/29/2018 COMPLETE BLOOD COUNT 0192051 MCV 87.0 fL 06/29/2018 COMPLETE BLOOD COUNT 8018929 MCH 29.0 pg 06/29/2018 COMPLETE BLOOD COUNT 1096724 MCHC 33.3 g/dL 06/29/2018 COMPLETE BLOOD COUNT 1450693 PLATELET COUNT 289 10e9/L 06/29/2018 COMPLETE BLOOD COUNT 6682205 Mean Plt Volume 10.6 fL 06/29/2018 COMPLETE BLOOD COUNT 5868935 Neut Auto 74.1 % 06/29/2018 COMPLETE BLOOD COUNT 9706066 Lymph Auto 14.7 % 06/29/2018 COMPLETE BLOOD COUNT 1302666 [place] Auto 8.3 % 06/29/2018 COMPLETE BLOOD COUNT 5798781 Eos Auto 2.7 % 06/29/2018 COMPLETE BLOOD COUNT 8088867 RDW 13.7 % 06/29/2018 COMPLETE BLOOD COUNT 1124970 Baso Auto 0.2 % 06/29/2018 COMPLETE BLOOD COUNT 4393151 Neutrophil Abs 3.85 10e9/L 06/29/2018 COMPLETE BLOOD COUNT 3015545 Lymphocyte Abs 0.76 10e9/L 06/29/2018 COMPLETE BLOOD COUNT 9774849 Monocyte Abs 0.43 10e9/L 06/29/2018 COMPLETE BLOOD COUNT 0617157 Eosinophil Abs 0.14 10e9/L 06/29/2018 COMPLETE BLOOD COUNT 1791982 RDW-SD 42.7 fL 06/29/2018 COMPLETE BLOOD COUNT 9840452 Basophil Abs 0.01 10e9/L 06/29/2018 IRON 50353 IRON TEST 42 UG/DL 07/31/2014 FERRITIN 27339 FERRITIN 10 NG/ML 07/31/2014 VITAMIN B 12 FOLIC ACID 71264|24953 VIT B 12 233 PG/ML 07/31/2014 VITAMIN B 12 FOLIC ACID 36010|16072 FOLIC ACID 8.7 NG/ML 5 COMPLETE BLOOD COUNT 1991526 WBC 6.4 10e9/L 07/29/2014 COMPLETE BLOOD COUNT 2016815 RBC 4.36 10e12/L 5 COMPLETE BLOOD COUNT 5819314 HGB 11.5 g/dL 07/29/2014 COMPLETE BLOOD COUNT 4862044 HCT DET 35.3 % 07/29/2014 COMPLETE BLOOD COUNT 3692397 MCV 81.0 fL 07/29/2014 COMPLETE BLOOD COUNT 1520312 MCH 26.4 pg 07/29/2014 COMPLETE BLOOD COUNT 3739239 MCHC 32.6 g/dL 07/29/2014 COMPLETE BLOOD COUNT 7624980 PLT 329 10e9/L 07/29/2014 COMPLETE BLOOD COUNT 7297359 MPV 10.4 fL 07/29/2014 COMPLETE BLOOD COUNT 4167464 ROLAND % 69.6 % 07/29/2014 COMPLETE BLOOD COUNT 7129740 LY % 21.3 % 07/29/2014 COMPLETE BLOOD COUNT 8239972 MON % 6.8 % 07/29/2014 COMPLETE BLOOD COUNT [id number] EOS % 2.0 % 07/29/2014 COMPLETE BLOOD COUNT [id number] BASO % 0.3 % 07/29/2014 COMPLETE BLOOD COUNT 5701136 RDW 15.9 % 07/29/2014 COMPLETE BLOOD COUNT 9503440 ABS ROLAND 4.45 10e9/L 07/29/2014 COMPLETE BLOOD COUNT 7388178 ABS LYMPH 1.36 10e9/L 07/29/2014 COMPLETE BLOOD COUNT [id number] ABS MONO 0.44 10e9/L 07/29/2014 COMPLETE BLOOD COUNT 4238111 ABS EOS 0.13 10e9/L 07/29/2014 COMPLETE BLOOD COUNT 0469903 ABS BASO 0.02 10e9/L 07/29/2014 COMPLETE BLOOD COUNT 2351976 RDW-SD 46.1 fL 07/29/2014 LIPID GROUP [address] 41 MG/DL 07/29/2014 LIPID GROUP 90861 TRIG 92 MG/DL 07/29/2014 LIPID GROUP 67983 TEST L DL 118 MG/DL 07/29/2014 LIPID GROUP 16620 CHOL 177 MG/DL 07/29/2014 LIPID GROUP 27586 RCHOL/ HDL 4.32 RATIO 07/29/2014 LIPID GROUP 83029 NON-HD L CH 136 MG/DL 07/29/2014 GFR CALC 0418346 GFR AA >60 ML/MIN 07/29/2014 GFR CALC 1682610 GFR NON -AA >60 ML/MIN 07/29/2014 FREE T4 27406 FREE T4 1.10 NG/DL 07/29/2014 COMPREHENSIVE METABOLIC 50382 AST 13 U/L 07/29/2014 COMPREHENSIVE METABOLIC 63851 ALT 12 IU/L 07/29/2014 COMPREHENSIVE METABOLIC 55629 BUN 16 MG/DL 07/29/2014 COMPREHENSIVE METABOLIC 44942 ALBUMIN 4.1 GM/DL 07/29/2014 COMPREHENSIVE METABOLIC 16212 CHLORIDE 106 MMOL/L 07/29/2014 COMPREHENSIVE METABOLIC 63734 BILI TOT 0.4 MG/DL 07/29/2014 COMPREHENSIVE METABOLIC 97458 ALK PHOS 77 U/L 07/29/2014 COMPREHENSIVE METABOLIC 06774 SODIUM 137 MMOL/L 07/29/2014 COMPREHENSIVE METABOLIC 68005 CREATININE 0.65 MG/DL 07/29/2014 COMPREHENSIVE METABOLIC 11689 CALCIUM 9.0 MG/DL 07/29/2014 COMPREHENSIVE METABOLIC 71589 POTASSIUM 4.0 MMOL/L 07/29/2014 COMPREHENSIVE METABOLIC 58236 PROT TOT 6.3 GM/DL 07/29/2014 COMPREHENSIVE METABOLIC 68079 Glucose 98 MG/DL 07/29/2014 COMPREHENSIVE METABOLIC 91261 BICARB 26 MMOL/L 07/29/2014 COMPREHENSIVE METABOLIC 00098 ANION GAP 5 MEQ/L 07/29/2014 THYROID STIMULATING HORMONE 58959 TSH 1.678 uIU/ML 5 GFR CALC 1683791 GFR AA >60 ML/MIN 02/26/2013 GFR CALC 1773895 GFR NON -AA >60 ML/MIN 02/26/2013 THYROID STIMULATING HORMONE 07689 TSH 1.635 uIU/ML 3 COMPLETE BLOOD COUNT 0486487 WBC 7.8 10e9/L 02/26/2013 COMPLETE BLOOD COUNT 2373812 RBC 4.60 10e12/L 3 COMPLETE BLOOD COUNT 8416296 HGB 12.7 g/dL 02/26/2013 COMPLETE BLOOD COUNT 7391535 HCT DET 38.1 % 02/26/2013 COMPLETE BLOOD COUNT 6578805 MCV 82.8 fL 02/26/2013 COMPLETE BLOOD COUNT 1452211 MCH 27.6 pg 02/26/2013 COMPLETE BLOOD COUNT 2572891 MCHC 33.3 g/dL 02/26/2013 COMPLETE BLOOD COUNT 6767876 PLT 324 10e9/L 02/26/2013 COMPLETE BLOOD COUNT 3759758 MPV 10.2 fL 02/26/2013 COMPLETE BLOOD COUNT 8885529 ROLAND % 72.0 % 02/26/2013 COMPLETE BLOOD COUNT 0757280 LY % 20.1 % 02/26/2013 COMPLETE BLOOD COUNT 8538568 MON % 6.3 % 02/26/2013 COMPLETE BLOOD COUNT 3612000 EOS % 1.3 % 02/26/2013 COMPLETE BLOOD COUNT 2478894 BASO % 0.3 % 02/26/2013 COMPLETE BLOOD COUNT 7694956 RDW 14.4 % 02/26/2013 COMPLETE BLOOD COUNT 7604728 ABS ROLAND 5.62 10e9/L 02/26/2013 COMPLETE BLOOD COUNT 7744279 ABS LYMPH 1.57 10e9/L 02/26/2013 COMPLETE BLOOD COUNT 7743758 ABS MONO 0.49 10e9/L 02/26/2013 COMPLETE BLOOD COUNT 1647563 ABS EOS 0.10 10e9/L 02/26/2013 COMPLETE BLOOD COUNT 8588157 ABS BASO 0.02 10e9/L 02/26/2013 COMPLETE BLOOD COUNT 3986912 RDW-SD 42.8 fL 02/26/2013 COMPREHENSIVE METABOLIC 35853 AST 15 U/L 02/26/2013 COMPREHENSIVE METABOLIC 34883 ALT 14 IU/L 02/26/2013 COMPREHENSIVE METABOLIC 65732 BUN 14 MG/DL 02/26/2013 COMPREHENSIVE METABOLIC 64321 ALBUMIN 4.2 GM/DL 02/26/2013 COMPREHENSIVE METABOLIC 91475 CHLORIDE 104 MMOL/L 02/26/2013 COMPREHENSIVE METABOLIC 33999 BILI TOT 0.6 MG/DL 02/26/2013 COMPREHENSIVE METABOLIC 69874 ALK PHOS 71 U/L 02/26/2013 COMPREHENSIVE METABOLIC 29665 SODIUM 136 MMOL/L 02/26/2013 COMPREHENSIVE METABOLIC 90261 CREATININE 0.62 MG/DL 02/26/2013 COMPREHENSIVE METABOLIC 65194 CALCIUM 9.5 MG/DL 02/26/2013 COMPREHENSIVE METABOLIC 14733 POTASSIUM 4.1 MMOL/L 02/26/2013 COMPREHENSIVE METABOLIC 12818 PROT TOT 6.7 GM/DL 02/26/2013 COMPREHENSIVE METABOLIC 78962 Glucose 92 MG/DL 02/26/2013 COMPREHENSIVE METABOLIC 59891 BICARB 26 MMOL/L 02/26/2013 COMPREHENSIVE METABOLIC 30227 ANION GAP 6 MEQ/L 02/26/2013 LIPID GROUP [address] 45 MG/DL 02/26/2013 LIPID GROUP 84274 TRIG 107 MG/DL 02/26/2013 LIPID GROUP 28318 TEST L DL 129 MG/DL 02/26/2013 LIPID GROUP 01217 CHOL 195 MG/DL 02/26/2013 LIPID GROUP 17231 RCHOL/ HDL 4.33 RATIO 02/26/2013 FREE T4 40601 FREE T4 1.07 NG/DL 02/26/2013 MYCOPLASMA ANTIBODY, IFA 83618V1 MYCO G IFA 1:128 11/13/2012 MYCOPLASMA ANTIBODY, IFA 51000S0 MYCO M IFA <1:10 11/13/2012 MYCOPLASMA ANTIBODY, IFA 28805G8 MYCO INTER SEE BELO 11/13/2012 COMPLETE BLOOD COUNT 6467605 WBC 6.0 10e9/L 11/12/2012 COMPLETE BLOOD COUNT 8059655 RBC 4.68 10e12/L 3 COMPLETE BLOOD COUNT 6900033 HGB 12.9 g/dL 11/12/2012 COMPLETE BLOOD COUNT 7958589 HCT DET 38.7 % 11/12/2012 COMPLETE BLOOD COUNT 9628064 MCV 82.7 fL 11/12/2012 COMPLETE BLOOD COUNT 4934052 MCH 27.6 pg 11/12/2012 COMPLETE BLOOD COUNT 9243295 MCHC 33.3 g/dL 11/12/2012 COMPLETE BLOOD COUNT 6001597 PLT 297 10e9/L 11/12/2012 COMPLETE BLOOD COUNT 0715914 MPV 11.1 fL 11/12/2012 COMPLETE BLOOD COUNT 1826962 ROLAND % 63.8 % 11/12/2012 COMPLETE BLOOD COUNT 6423433 LY % 28.2 % 11/12/2012 COMPLETE BLOOD COUNT 4267357 MON % 6.6 % 11/12/2012 COMPLETE BLOOD COUNT 1502762 EOS % 1.2 % 11/12/2012 COMPLETE BLOOD COUNT 2230025 BASO % 0.2 % 11/12/2012 COMPLETE BLOOD COUNT 1220593 RDW 14.9 % 11/12/2012 COMPLETE BLOOD COUNT 2482267 ABS ROLAND 3.83 10e9/L 11/12/2012 COMPLETE BLOOD COUNT 6588032 ABS LYMPH 1.69 10e9/L 11/12/2012 COMPLETE BLOOD COUNT 3149850 ABS MONO 0.40 10e9/L 11/12/2012 COMPLETE BLOOD COUNT 2395821 ABS EOS 0.07 10e9/L 11/12/2012 COMPLETE BLOOD COUNT 8558116 ABS BASO 0.01 10e9/L 11/12/2012 COMPLETE BLOOD COUNT 0444676 RDW-SD 44.8 fL 11/12/2012 HEMOGLOBIN A1C (GLYCOSYLATED) 8482612 A1C HPLC 78672-0 5.1 % 06/06/2012 RA FACTOR 92299 RA FACTOR <20.0 IU/ML 06/06/2012 ANTINUCLEAR ANTIBODY SCREEN 58587 FERDINAND SCR <1:80 06/06/2012 INSULIN SERUM 40502 INSU PETER 12.2 mU/L 06/06/2012 COMPREHENSIVE METABOLIC 42775 AST 13 U/L 06/05/2012 COMPREHENSIVE METABOLIC 90313 ALT 13 IU/L 06/05/2012 COMPREHENSIVE METABOLIC 62850 BUN 21 MG/DL 06/05/2012 COMPREHENSIVE METABOLIC 12530 ALBUMIN 4.7 GM/DL 06/05/2012 COMPREHENSIVE METABOLIC 32002 CHLORIDE 106 MMOL/L 06/05/2012 COMPREHENSIVE METABOLIC 69666 BILI TOT 0.6 MG/DL 06/05/2012 COMPREHENSIVE METABOLIC 80379 ALK PHOS 61 U/L 06/05/2012 COMPREHENSIVE METABOLIC 55704 SODIUM 139 MMOL/L 06/05/2012 COMPREHENSIVE METABOLIC 37827 CREATININE 0.71 MG/DL 06/05/2012 COMPREHENSIVE METABOLIC 03170 CALCIUM 9.8 MG/DL 06/05/2012 COMPREHENSIVE METABOLIC 47043 POTASSIUM 4.6 MMOL/L 06/05/2012 COMPREHENSIVE METABOLIC 68888 PROT TOT 6.7 GM/DL 06/05/2012 COMPREHENSIVE METABOLIC 43095 Glucose 104 MG/DL 06/05/2012 COMPREHENSIVE METABOLIC 01413 BICARB 24 MMOL/L 06/05/2012 COMPREHENSIVE METABOLIC 97311 ANION GAP 9 MEQ/L 06/05/2012 GFR CALC 6575277 GFR AA >60 ML/MIN 06/05/2012 GFR CALC 9282781 GFR NON -AA >60 ML/MIN 06/05/2012 LIPID GROUP [address] 46 MG/DL 06/05/2012 LIPID GROUP 09392 TRIG 77 MG/DL 06/05/2012 LIPID GROUP 08273 TEST L DL 135 MG/DL 06/05/2012 LIPID GROUP 70289 CHOL 196 MG/DL 06/05/2012 LIPID GROUP 12224 RCHOL/ HDL 4.26 RATIO 06/05/2012 COMPLETE BLOOD COUNT 1719161 WBC 5.9 10e9/L 06/05/2012 COMPLETE BLOOD COUNT 5885184 RBC 5.02 10e12/L 3 COMPLETE BLOOD COUNT 5692735 HGB 13.9 g/dL 06/05/2012 COMPLETE BLOOD COUNT 4735468 HCT DET 41.5 % 06/05/2012 COMPLETE BLOOD COUNT 7498773 MCV 82.7 fL 06/05/2012 COMPLETE BLOOD COUNT 0486916 MCH 27.7 pg 06/05/2012 COMPLETE BLOOD COUNT 8166936 MCHC 33.5 g/dL 06/05/2012 COMPLETE BLOOD COUNT 4423148 PLT 323 10e9/L 06/05/2012 COMPLETE BLOOD COUNT 7812190 MPV 11.3 fL 06/05/2012 COMPLETE BLOOD COUNT 8588709 ROLAND % 70.6 % 06/05/2012 COMPLETE BLOOD COUNT 8034266 LY % 21.4 % 06/05/2012 COMPLETE BLOOD COUNT 1774865 MON % 6.4 % 06/05/2012 COMPLETE BLOOD COUNT 9216457 EOS % 1.3 % 06/05/2012 COMPLETE BLOOD COUNT 7474686 BASO % 0.3 % 06/05/2012 COMPLETE BLOOD COUNT 1504992 RDW 14.9 % 06/05/2012 COMPLETE BLOOD COUNT 6139682 ABS ROLAND 4.17 10e9/L 06/05/2012 COMPLETE BLOOD COUNT 6659860 ABS LYMPH 1.26 10e9/L 06/05/2012 COMPLETE BLOOD COUNT 2014450 ABS MONO 0.38 10e9/L 06/05/2012 COMPLETE BLOOD COUNT 1437992 ABS EOS 0.08 10e9/L 06/05/2012 COMPLETE BLOOD COUNT 0270745 ABS BASO 0.02 10e9/L 06/05/2012 COMPLETE BLOOD COUNT 2534094 RDW-SD 44.8 fL 06/05/2012 THYROID STIMULATING HORMONE 22430 TSH 1.684 uIU/ML 3 FREE T4 23813 FREE T4 1.19 NG/DL 06/05/2012 BASIC METABOLIC PANEL 53755 Glucose 100 MG/DL 04/13/2011 BASIC METABOLIC PANEL 04052 BUN 18 MG/DL 04/13/2011 BASIC METABOLIC PANEL 27380 CREATININE 0.66 MG/DL 04/13/2011 BASIC METABOLIC PANEL 94996 SODIUM 138 MMOL/L 04/13/2011 BASIC METABOLIC PANEL 90903 BICARB 26 MMOL/L 04/13/2011 BASIC METABOLIC PANEL 50192 ANION GAP 9 MEQ/L 04/13/2011 BASIC METABOLIC PANEL 95974 POTASSIUM 4.0 MMOL/L 04/13/2011 BASIC METABOLIC PANEL 15466 CHLORIDE 103 MMOL/L 04/13/2011 BASIC METABOLIC PANEL 61746 CALCIUM 9.6 MG/DL 04/13/2011 FSH 7410329 FSH 4.6 MIU/ML 04/13/2011 GFR CALC 8264141 GFR AA >60 ML/MIN 04/13/2011 GFR CALC 1336339 GFR NON -AA >60 ML/MIN 04/13/2011 ESTRADIOL SERUM 46045 ES TRADIOL 113 PG/ML 04/13/2011 LH 90643 LH 3.7 MIU/ML 04/13/2011 THYROID STIMULATING HORMONE 02930 TSH 1.995 uIU/ML 1 LIPID GROUP [address] 40 MG/DL 12/21/2010 LIPID GROUP 00643 TRIG 66 MG/DL 12/21/2010 LIPID GROUP 60402 TEST L DL 132 MG/DL 12/21/2010 LIPID GROUP 78352 CHOL 185 MG/DL 12/21/2010 LIPID GROUP 46316 RCHOL/ HDL 4.63 RATIO 12/21/2010 THYROID STIMULATING HORMONE 86448 TSH 1.876 uIU/ML 1 COMPLETE BLOOD COUNT 15353 WBC 7.0 10e9/L 12/21/2010 COMPLETE BLOOD COUNT 07013 RBC 4.28 10e12/L 1 COMPLETE BLOOD COUNT 61582 HGB 12.1 g/dL 12/21/2010 COMPLETE BLOOD COUNT 70045 HCT DET 36.1 % 12/21/2010 COMPLETE BLOOD COUNT 25754 MCV 84.3 fL 12/21/2010 COMPLETE BLOOD COUNT 31965 MCH 28.3 pg 12/21/2010 COMPLETE BLOOD COUNT 47828 MCHC 33.5 g/dL 12/21/2010 COMPLETE BLOOD COUNT 27930 PLT 306 10e9/L 12/21/2010 COMPLETE BLOOD COUNT 28705 MPV 10.4 fL 12/21/2010 COMPLETE BLOOD COUNT 74724 ROLAND % 69.9 % 12/21/2010 COMPLETE BLOOD COUNT 06737 LY % 22.2 % 12/21/2010 COMPLETE BLOOD COUNT 73413 MON % 5.7 % 12/21/2010 COMPLETE BLOOD COUNT 29148 EOS % 1.9 % 12/21/2010 COMPLETE BLOOD COUNT 07701 BASO % 0.3 % 12/21/2010 COMPLETE BLOOD COUNT 93991 RDW 14.0 % 12/21/2010 COMPLETE BLOOD COUNT 05831 ABS ROLAND 4.89 10e9/L 12/21/2010 COMPLETE BLOOD COUNT 97910 ABS LYMPH 1.55 10e9/L 12/21/2010 COMPLETE BLOOD COUNT 51343 ABS MONO 0.40 10e9/L 12/21/2010 COMPLETE BLOOD COUNT 55768 ABS EOS 0.13 10e9/L 12/21/2010 COMPLETE BLOOD COUNT 60799 ABS BASO 0.02 10e9/L 12/21/2010 COMPLETE BLOOD COUNT 04690 RDW-SD 41.5 fL 12/21/2010 FREE T4 54378 FREE T4 1.02 NG/DL 12/21/2010 COMPREHENSIVE METABOLIC 08718 AST 11 U/L 12/21/2010 COMPREHENSIVE METABOLIC 91214 ALT 9 IU/L 12/21/2010 COMPREHENSIVE METABOLIC 47376 BUN 16 MG/DL 12/21/2010 COMPREHENSIVE METABOLIC 27469 ALBUMIN 4.0 GM/DL 12/21/2010 COMPREHENSIVE METABOLIC 32312 CHLORIDE 106 MMOL/L 12/21/2010 COMPREHENSIVE METABOLIC 30970 BILI TOT 0.3 MG/DL 12/21/2010 COMPREHENSIVE METABOLIC 87183 ALK PHOS 59 U/L 12/21/2010 COMPREHENSIVE METABOLIC 58354 SODIUM 139 MMOL/L 12/21/2010 COMPREHENSIVE METABOLIC 59116 CREATININE 0.66 MG/DL 12/21/2010 COMPREHENSIVE METABOLIC 96528 CALCIUM 8.9 MG/DL 12/21/2010 COMPREHENSIVE METABOLIC 71195 POTASSIUM 4.2 MMOL/L 12/21/2010 COMPREHENSIVE METABOLIC 48296 PROT TOT 6.5 GM/DL 12/21/2010 COMPREHENSIVE METABOLIC 60057 Glucose 101 MG/DL 12/21/2010 COMPREHENSIVE METABOLIC 52611 BICARB 28 MMOL/L 12/21/2010 COMPREHENSIVE METABOLIC 87074 ANION GAP 5 MEQ/L 12/21/2010 GFR CALC 8889412 GFR AA >60 ML/MIN 12/21/2010 GFR CALC 8234993 GFR NON -AA >60 ML/MIN 12/21/2010 LIPID GROUP [address] 40 MG/DL 12/10/2009 LIPID GROUP 29651 TRIG 98 MG/DL 12/10/2009 LIPID GROUP 89021 TEST L DL 128 MG/DL 12/10/2009 LIPID GROUP 03918 CHOL 188 MG/DL 12/10/2009 LIPID GROUP 80114 RCHOL/ HDL 4.70 RATIO 12/10/2009 DF 6065972 POLY 74 % 12/09/2009 DF 7851940 BAND 0 % 12/09/2009 DF 3869027 LYMP 21 % 12/09/2009 DF 1126510 MONO 3 % 12/09/2009 DF 7625976 EOS 2 % 12/09/2009 DF 2265008 BASO 0 % 12/09/2009 GFR CALC 4083387 GFR AA >60 ML/MIN 12/09/2009 GFR CALC 6820808 GFR NON -AA >60 ML/MIN 12/09/[address] 8627910 WBC 8.7 10e9/L 12/09/[address] 9907188 RBC 4.78 10e12/L 12/09/[address] 4021560 HGB 13.2 g/dL 12/09/[address] 0717693 HCT DET 40.2 % 12/09/[address] 4388570 MCV 84.1 fL 12/09/[address] 1482753 MCH 27.6 pg 12/09/[address] 3606271 MCHC 32.8 g/dL 12/09/[address] 6358723 PLT 374 10e9/L 12/09/[address] 2065375 MPV 11.0 fL 12/09/[address] 7517[address] ROLAND % 70.2 % 12/09/[address] 8721264 RDW 14.4 % 12/09/[address] 4147086 LY % 22.4 % 12/09/[address] 2708649 RDW-SD 44.7 fL 12/09/[address] 4531576 MON % 6.2 % 12/09/[address] 3513272 EOS % 1.0 % 12/09/[address] 7163756 BASO % 0.2 % 12/09/[address] 8449996 ABS ROLAND 6.08 10e9/L 12/09/[address] 6981630 ABS LY MPH 1.94 10e9/L 12/09/[address] 5904905 ABS MO NO 0.54 10e9/L 12/09/[address] 7606910 ABS EOS 0.09 10e9/L 12/09/[address] 9884705 ABS BA SO 0.02 10e9/L 12/09/2009 THYROID STIMULATING HORMONE 02464 TSH 1.916 uIU/ML 0 COMPREHENSIVE METABOLIC 81662 AST 13 U/L 12/09/2009 COMPREHENSIVE METABOLIC 85232 ALT 13 IU/L 12/09/2009 COMPREHENSIVE METABOLIC 88549 BUN 18 MG/DL 12/09/2009 COMPREHENSIVE METABOLIC 14243 ALBUMIN 4.3 GM/DL 12/09/2009 COMPREHENSIVE METABOLIC 20975 CHLORIDE 106 MMOL/L 12/09/2009 COMPREHENSIVE METABOLIC 66765 BILI TOT 0.5 MG/DL 12/09/2009 COMPREHENSIVE METABOLIC 49185 ALK PHOS 69 U/L 12/09/2009 COMPREHENSIVE METABOLIC 60764 SODIUM 137 MMOL/L 12/09/2009 COMPREHENSIVE METABOLIC 60003 CREATININE 0.69 MG/DL 12/09/2009 COMPREHENSIVE METABOLIC 48877 CALCIUM 9.1 MG/DL 12/09/2009 COMPREHENSIVE METABOLIC 27102 POTASSIUM 4.5 MMOL/L 12/09/2009 COMPREHENSIVE METABOLIC 48722 PROT TOT 6.9 GM/DL 12/09/2009 COMPREHENSIVE METABOLIC 21984 Glucose 97 MG/DL 12/09/2009 COMPREHENSIVE METABOLIC 75260 BICARB 20 MMOL/L 12/09/2009 COMPREHENSIVE METABOLIC 82287 ANION GAP 11 MEQ/L 12/09/2009 Review of [...] activity 01/15/2019 None Full Exam - General Constitutional [...] Procedures Procedure Codes Date ROUTINE VENIPUNCTURE CPT-4: 59824 06/29/2018 ASSAY OF FREE THYROXINE CPT-4: 21177 06/29/2018 ASSAY THYROID STIM H ORMONE CPT-4: 94452 06/29/2018 COMPREHEN METABOLIC PANEL CPT-4: 08009 06/29/2018 COMPLETE CBC W/AUTO DIFF WBC CPT-4: 06270 06/29/2018 LIPID PANEL CPT-4: 81212 06/29/2018 TDAP VACCINE 7 YRS/> IM CPT-4: 39913 06/11/2018 IMMUNIZATION ADMIN CPT- 4: 94111 06/11/2018 ROUTINE VENIPUNCTURE CPT-4: 92816 04/05/2017 ASSAY THYROID STIM H ORMONE CPT-4: 08383 04/05/2017 COMPREHEN METABOLIC PANEL CPT-4: 54959 04/05/2017 COMPLETE CBC W/AUTO DIFF WBC CPT-4: 81140 04/05/2017 LIPID PANEL CPT-4: 89635 04/05/2017 ASSAY OF BLOOD/URIC ACID CPT-4: 61940 04/05/2017 THER/PROPH/DIAG INJ SC/IM CPT-4: 58208 02/12/2016 TRIAMCINOLONE ACET I [place] NOS CPT-4: J3301 02/12/2016 DEXAMETHASONE SODIUM PHOS CPT-4: J1100 02/12/2016 PRESCRIP TRANSMIT A ERX SY CPT-4: G8553 10/01/2015 URINALYSIS NONAUTO W /O SCOPE CPT-4: 52841 10/01/2015 URINE CULTURE/ COLON Y COUNT CPT-4: 03674 10/01/2015 OCCULT BLOOD FECES CPT- 4: 68472 08/04/2015 [facility] C[facility]: 69605 08/04/2015 URINALYSIS NONAUTO W /O SCOPE CPT-4: 55103 05/27/2015 URINE CULTURE/ COLON Y COUNT CPT-4: 43807 05/27/2015 THER/PROPH/DIAG INJ SC/IM CPT-4: 58201 03/10/2015 KETOROLAC TROMETHAMI NE INJ CPT-4: J1885 03/10/2015 ROUTINE VENIPUNCTURE CPT-4: 51495 07/29/2014 ASSAY OF FREE THYROXINE CPT-4: 99494 07/29/2014 ASSAY THYROID STIM H ORMONE CPT-4: 26002 07/29/2014 COMPREHEN METABOLIC PANEL CPT-4: 04329 07/29/2014 COMPLETE CBC W/AUTO DIFF WBC CPT-4: 95649 07/29/2014 LIPID PANEL CPT-4: 69230 07/29/2014 ASSAY OF IRON CPT-4: 23508 07/29/2014 ASSAY OF FERRITIN CPT-4: 58883 07/29/2014 VITAMIN B 12 FOLIC ACID CPT-4: 40761|21614 07/29/2014 URINALYSIS NONAUTO W /O SCOPE CPT-4: 27676 05/31/2013 URINE CULTURE/ COLON Y COUNT CPT-4: 40833 05/31/2013 INFLUENZA ASSAY W/OPTIC CPT-4: 68737 05/27/2013 THER/PROPH/DIAG INJ SC/IM CPT-4: 98517 05/27/2013 METHYLPREDNISOLONE 4 0 MG INJ CPT-4: J1030 05/27/2013 TRIAMCINOLONE ACET I [place] NOS CPT-4: J3301 05/27/2013 ROUTINE VENIPUNCTURE CPT-4: 79468 02/26/2013 ASSAY OF FREE THYROXINE CPT-4: 53528 02/26/2013 ASSAY THYROID STIM H ORMONE CPT-4: 88139 02/26/2013 COMPREHEN METABOLIC PANEL CPT-4: 52308 02/26/2013 COMPLETE CBC W/AUTO DIFF WBC CPT-4: 42882 02/26/2013 LIPID PANEL CPT-4: 44443 02/26/2013 ROUTINE VENIPUNCTURE CPT-4: 44674 11/12/2012 COMPLETE CBC W/AUTO DIFF WBC CPT-4: 77893 11/12/2012 MYCOPLASMA ANTIBODY, IFA CPT-4: 04428I8 11/12/2012 ROUTINE VENIPUNCTURE CPT-4: 68774 06/05/2012 ASSAY OF FREE THYROXINE CPT-4: 41025 06/05/2012 ASSAY THYROID STIM H ORMONE CPT-4: 34971 06/05/2012 COMPREHEN METABOLIC PANEL CPT-4: 98995 06/05/2012 COMPLETE CBC W/AUTO DIFF WBC CPT-4: 56126 06/05/2012 LIPID PANEL CPT-4: 67549 06/05/2012 ANTINUCLEAR ANTIBODIES CPT-4: 00119 06/05/2012 RHEUMATOID FACTOR QUANT CPT-4: 77073 06/05/2012 ASSAY OF INSULIN CPT-4: 80111 06/05/2012 A1C GLYCOSYLATED HEM OGLOBIN TEST CPT-4: 30306 06/05/2012 SPECIMEN HANDLING OF [facility] CPT-4: 20779 12/21/2011 ROUTINE VENIPUNCTURE CPT-4: 17172 04/13/2011 ASSAY THYROID STIM H ORMONE CPT-4: 40516 04/13/2011 METABOLIC PANEL TOTA L CA CPT-4: 79198 04/13/2011 FSH CPT-4: 7912375 04/13/2011 LH CPT-4: 67437 04/13/2011 ASSAY OF ESTRADIOL CPT- 4: 39626 04/13/2011 URINALYSIS NONAUTO W /O SCOPE CPT-4: 50758 02/04/2011 URINE CULTURE/ COLON Y COUNT CPT-4: 63544 02/04/2011 ROUTINE VENIPUNCTURE CPT-4: 62695 12/21/2010 ASSAY OF FREE THYROXINE CPT-4: 90200 12/21/2010 ASSAY THYROID STIM H ORMONE CPT-4: 78343 12/21/2010 COMPLETE CBC W/AUTO DIFF WBC CPT-4: 44477 12/21/2010 COMPREHEN METABOLIC PANEL CPT-4: 47739 12/21/2010 LIPID PANEL CPT-4: 26676 12/21/2010 OCCULT BLOOD FECES CPT- 4: 26301 12/06/2010 ROUTINE VENIPUNCTURE CPT-4: 59822 12/09/2009 CBC WITH MANUAL DIFF ERENTIAL CPT-4: 23641|68969 12/09/2009 COMPREHEN METABOLIC PANEL CPT-4: 03537 12/09/2009 LIPID PANEL CPT-4: 33385 12/09/2009 ASSAY THYROID STIM H ORMONE CPT-4: 38665 12/09/2009 SPECIMEN HANDLING OF [facility]-LAB CPT-4: 93273 12/08/2009 THER/PROPH/DIAG INJ SC/IM CPT-4: 66065 09/01/2009 KETOROLAC TROMETHAMI NE INJ CPT-4: J1885 09/01/2009 URINALYSIS NONAUTO W /O SCOPE CPT-4: 79824 08/26/2009 Vital Signs Date Vital 01/15/2019 Blood [...] 1: 106/68 Code: 8480-6 BMI: 36.2 Code: 65242-1 Heart Rate 1: 72 bpm Height: 5'2" Respiratory Rate: 20 bpm SpO2: 97% Temperature: 37.1 (C ) / 98.8 (F) Weight: 198 lbs 04/05/2017 Blood Pressure 1: 114/78 Code: 8480-6 BMI: 35.5 Code: 79120-2 Heart Rate 1: 68 bpm Height: 5'2" Respiratory Rate: 20 bpm SpO2: 96% Temperature: 36.9 (C ) / 98.5 (F) Weight: 194 lbs 02/12/2016 Blood Pressure 1: 126/78 Code: 8480-6 BMI: 31.8 Code: 78611-1 Heart Rate 1: 60 bpm Height: 5'2" Respiratory Rate: 24 bpm SpO2: 96% Temperature: 36.2 (C ) / 97.1 (F) Weight: 174 lbs 01/25/2016 Blood Pressure 1: 128/78 Code: 8480-6 BMI: 31.6 Code: 79375-9 Heart Rate 1: 76 bpm Height: 5'2" Respiratory Rate: 20 bpm SpO2: 98% Temperature: 36.5 (C ) / 97.7 (F) Weight: 173 lbs 10/01/2015 Blood Pressure 1: 108/58 Code: 8480-6 BMI: 32.9 Code: 42667-3 Heart Rate 1: 62 bpm Height: 5'2" Respiratory Rate: 20 bpm SpO2: 98% Temperature: 36.2 (C ) / 97.1 (F) Weight: 180 lbs 08/04/2015 Blood Pressure 1: 126/78 Code: 8480-6 BMI: 33.8 Code: 62187-5 Heart Rate 1: 72 bpm Height: 5'2" Respiratory Rate: 20 bpm Temperature: 36.9 (C ) / 98.5 (F) Weight: 185 lbs 05/27/2015 Blood Pressure 1: 132/80 Code: 8480-6 BMI: 36.2 Code: 08416-6 Heart Rate 1: 56 bpm Height: 5'2" Respiratory Rate: 20 bpm Temperature: 37.0 (C ) / 98.6 (F) Weight: 198 lbs 03/10/2015 Blood Pressure 1: 136/82 Code: 8480-6 BMI: 36.2 Code: 78435-2 Heart Rate 1: 88 bpm Height: 5'2" Respiratory Rate: 20 bpm Temperature: 37.0 (C ) / 98.6 (F) Weight: 198 lbs 06/30/2014 Blood Pressure 1: 124/78 Code: 8480-6 BMI: 35.8 Code: 14250-4 Heart Rate 1: 84 bpm Height: 5'2" Respiratory Rate: 20 bpm Temperature: 36.8 (C ) / 98.2 (F) Weight: 196 lbs 08/12/2013 Blood Pressure 1: 114/72 Code: 8480-6 BMI: 35.8 Code: 64310-6 Heart Rate 1: 80 bpm Height: 5'2" [...] 1: 132/86 Code: 8480-6 BMI: 34.9 Code: 62250-4 Heart Rate 1: 72 bpm Height: 5'2" Respiratory Rate: 20 bpm Temperature: 36.9 (C ) / 98.4 (F) Weight: 191 lbs 11/29/2012 Blood Pressure 1: 126/82 Code: 8480-6 BMI: 34.4 Code: 29417-8 Heart Rate 1: 84 bpm Height: 5'2" Respiratory Rate: 20 bpm Temperature: 36.7 (C ) / 98.0 (F) Weight: 188 lbs 11/12/2012 Blood Pressure 1: 110/62 Code: 8480-6 BMI: 34.8 Code: 10973-9 Heart Rate 1: 64 bpm Height: 5'2" Temperature: 36.7 (C ) / 98.1 (F) Weight: 190 lbs 07/30/2012 Blood Pressure 1: 124/82 Code: 8480-6 BMI: 36.0 Code: 28361-0 Heart Rate 1: 84 bpm Height: 5'2" Respiratory Rate: 20 bpm Temperature: 36.5 (C ) / 97.7 (F) Weight: 197 lbs 06/04/2012 Blood Pressure 1: 118/70 Code: 8480-6 BMI: 36.2 Code: 25613-0 Heart Rate 1: 64 bpm Height: 5'2" Temperature: 37.1 (C ) / 98.7 (F) Weight: 198 lbs 12/21/2011 Blood Pressure 1: 132/80 Code: 8480-6 BMI: 33.3 Code: 89008-1 Heart Rate 1: 64 bpm Height: 5'2" Respiratory Rate: 20 bpm Temperature: 36.6 (C ) / 97.8 (F) Weight: 182 lbs 10/07/2011 Blood Pressure 1: 128/72 Code: 8480-6 BMI: 34.4 Code: 40310-3 Heart Rate 1: 80 bpm Height: 5'2" Respiratory Rate: 20 bpm Temperature: 36.8 (C ) / 98.2 (F) Weight: 188 lbs 09/05/2011 Blood Pressure 1: 106/72 Code: 8480-6 BMI: 33.3 Code: 45989-1 Heart Rate 1: 76 bpm Height: 5'2" Respiratory Rate: 20 bpm Temperature: 36.6 (C ) / 97.9 (F) Weight: 182 lbs 04/28/2011 Blood Pressure 1: 110/70 Code: 8480-6 BMI: 34.4 Code: 93895-9 Heart Rate 1: 60 bpm Height: 5'2" Temperature: 37.0 (C ) / 98.6 (F) Weight: 188 lbs 04/13/2011 Blood Pressure 1: 106/84 Code: 8480-6 BMI: 34.4 Code: 00221-3 Heart Rate 1: 80 bpm Height: 5'2" Respiratory Rate: 20 bpm Temperature: 36.6 (C ) / 97.8 (F) Weight: 188 lbs 02/04/2011 Blood Pressure 1: 108/76 Code: 8480-6 BMI: 33.7 Code: 30143-9 Heart Rate 1: 74 bpm Height: 5'2" Weight: 184 lbs 12/06/2010 Blood Pressure 1: 120/72 Code: 8480-6 BMI: 33.3 Code: 28056-8 Heart Rate 1: 76 bpm Height: 5'2" [...] 1: 118/66 Code: 8480-6 BMI: 32.6 Code: 04865-1 Heart Rate 1: 68 bpm Height: 5'2" Temperature: 36.7 (C ) / 98.1 (F) Weight: 178 lbs 09/01/2009 Blood Pressure 1: 118/76 Code: 8480-6 BMI: 34.6 Code: 50182-3 Heart Rate 1: 76 bpm Height: 5'2" [...] period in A pril and then again 18. Someone had mention that is a sign [...] years) Menstr ual History last menstrual period 7-11-11 12/06/2010 None well woman exam (40-65 years) [...] norvasc as well apneic events Quality ac [place] 04/14/2010 just had sleep study whic h [...] Encounters Encounter Performer Loca tion Codes Date ([id number]) OFFICE/OUTPA TIENT VISIT EST Diagnosis: Essential (primary) hypertension[ICD10: I10] Diagnosis: Encounter for therapeutic drug level monitoring[ICD10: Z51.81] Silvia ANDERS DO [facility] CPT-4: 49390 01/15/2019 ([id number]) OFFICE/OUTPA TIENT VISIT EST Diagnosis: Acute bronchitis, unspecified[ICD10: J20.9] Diagnosis: Acute recurrent maxillary sinusitis[ICD10: J01.01] Nicol ANDERS DO [employer] CPT-4: 06631 07/20/2018 ([id number]) NURSE/OUTPAT IENT VISIT EST Diagnosis: Encounter for general adult medical examination without abnormal findings[ICD10: Z00.00] Diagnosis: Mixed hyperlipidemia[ICD10: E78.2] Caren CEE [employer] CPT-4: 87383 06/29/2018 ([id number]) PREV VISIT E ST AGE 40-64 Diagnosis: Encounter for general adult medical examination without abnormal findings[ICD10: Z00.00] Diagnosis: Encounter for screening mammogram for malignant neoplasm of breast[ICD10: Z12.31] Diagnosis: Essential (primary) hypertension[ICD10: I10] Diagnosis: Migraine with aura, not intractable, without status migrainosus[ICD10: G43.109] Diagnosis: VACCINE FOR TDAP[ICD10: Z23] Caren ANDERS [employer] CPT-4: 23694 06/11/2018 ([id number]) PREV VISIT E AGE 40-64 Diagnosis: Encounter [...] Pain in unspecified joint[ICD10: M25.50] Caren [facility] [employer] CPT-4: 52901 04/05/2017 ([id number]) OFFICE/OUTPA TIENT VISIT EST Diagnosis: Acute upper respiratory infection, unspecified[ICD10: J06.9] Diagnosis: Acute maxillary sinusitis, unspecified[ICD10: J01.00] Chiara ANDERS [employer] CPT-4: 84284 02/12/2016 ([id number]) OFFICE/OUTPA TIENT VISIT EST Diagnosis: Acute upper respiratory infection, unspecified[ICD10: J06.9] Diagnosis: Acute maxillary sinusitis, unspecified[ICD10: J01.00] Chiara ANDERS [facility] CPT-4: 39324 01/25/2016 ([id number]) OFFICE/OUTPA TIENT VISIT EST Diagnosis: Urinary tract infection, site not specified[ICD10: N39.0] Chiara ANDERS [employer] CPT-4: 47120 10/01/2015 ([id number]) PREV VISIT E ST AGE 40-64 Diagnosis: Encounter for gynecological examination (general) (routine) without abnormal findings[ICD10: Z01.419] Diagnosis: Encounter for general adult medical examination without abnormal findings[ICD10: Z00.00] Diagnosis: Migraine, unspecified, not intractable, without status migrainosus[ICD10: G43.909] Diagnosis: Essential (primary) hypertension[ICD10: I10] Caren [facility] [employer] CPT-4: 22257 08/04/2015 ([id number]) OFFICE/OUTPA TIENT VISIT EST Diagnosis: Menopausal and female climacteric states[ICD10: N95.1] Diagnosis: Dysuria[ICD10: R30.0] Caren ANDERS [employer] CPT-4: 92456 05/27/2015 OFFICE/OUTPATIENT SIT EST Diagnosis: Persistent migraine 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 cerebral infarction, intractable, with status migrainosus[ICD10: G43.511] Diagnosis: Unspecified convulsions[ICD10: R56.9] Caren [facility] [employer] CPT-4: 74200 03/10/2015 ([id number]) OFFICE/OUTPA TIENT VISIT EST Diagnosis: HYPERLIPIDEMIA NEC/NOS[ICD9: 272.4] Diagnosis: HYPERTENSION[ICD9: 401.9] Diagnosis: MALAISE AND FATIGUE[ICD9: 780.79] Diagnosis: ANEMIA NOS[ICD9: 285.9] Caren ANDERS [facility] CPT-4: 22603 07/29/2014 ([id number]) PREV VISIT E ST AGE 40-64 Diagnosis: ROUTINE MEDICAL EXAM[ICD9: V70.0] Diagnosis: HYPERTENSION[ICD9: 401.9] Diagnosis: MIGRAINE NOS/NOT INTRCBL[ICD9: 346.90] Diagnosis: GERD[ICD9: 530.81] Caren ANDERS [facility] CPT-4: 39086 06/30/2014 ([id number]) OFFICE/OUTPA TIENT VISIT EST Diagnosis: ALLERGIC RHINITIS[ICD9: 477.9] Diagnosis: DERMATITIS NOS[ICD9: 692.9] Caren ANDERS [facility] CPT-4: 65470 08/12/2013 OFFICE/OUTPATIENT SIT EST Diagnosis: HEMATURIA NOS[ICD9: 599.70] Diagnosis: COUGH[ICD9: 786.2] Diagnosis: BRONCHITIS, ACUTE[ICD9: 466.0] Diagnosis: URINARY TRACT INFECTION[ICD9: 599.0] Lyndsey Clay [facility] CPT-4: 87895 05/31/2013 OFFICE/OUTPATIENT SIT EST Diagnosis: COUGH[ICD9: 786.2] Diagnosis: SINUSITIS, ACUTE[ICD9: 461.9] Diagnosis: FEBRILE ILLNESS[ICD9: 780.60] [facility] 44743 05/27/2013 ([id number]) OFFICE/OUTPA TIENT VISIT EST Diagnosis: DERMATITIS NOS[ICD9: 692.9] Diagnosis: Tinea cruris[ICD9: 110.3] [facility]: 76229 02/26/2013 OFFICE/OUTPATIENT SIT EST Diagnosis: Rash[ICD9: 782.1] Anni Brennan [facility]: 45419 11/29/2012 OFFICE/OUTPATIENT SIT EST Diagnosis: COUGH[ICD9: 786.2] Diagnosis: SINUSITIS, ACUTE[ICD9: 461.9] Diagnosis: PHARYNGITIS, ACUTE[ICD9: 462] Caren ANDERS [facility] CPT-4: 90514 11/12/2012 OFFICE/OUTPATIENT SIT EST Diagnosis: COUGH[ICD9: 786.2] Diagnosis: SINUSITIS, ACUTE[ICD9: 461.9] Diagnosis: Myalgia[ICD9: 729.1] Caren ANDERS DO [facility] CPT-4: 90577 07/30/2012 ([id number]) OFFICE/OUTPA TIENT VISIT EST Diagnosis: JOINT PAIN-UNSPEC[ICD9: 719.40] Diagnosis: Rash and nonspecific skin eruption[ICD9: 782.1] Caren CEE [facility] CPT-4: 19553 06/05/2012 OFFICE/OUTPATIENT SIT EST Diagnosis: Rash[ICD9: 782.1] Diagnosis: Joint pain[ICD9: 719.40] Caren ANDERS [facility] CPT-4: 69631 06/04/2012 ([id number]) PREV VISIT E ST AGE 40-64 Diagnosis: ROUTINE GYNE EXAM[ICD9: V72.31] Diagnosis: ROUTINE MEDICAL EXAM[ICD9: V70.0] Diagnosis: MIGRAINE NOS/NOT INTRCBL[ICD9: 346.90] Caren CEE [facility] CPT-4: 61003 12/21/2011 OFFICE/OUTPATIENT SIT EST Diagnosis: Hemorrhoid[ICD9: 455.6] Diagnosis: Constipation[ICD9: 564.00] Diagnosis: Rash[ICD9: 782.1] Caren ANDERS [facility] CPT-4: 39664 10/07/2011 OFFICE/OUTPATIENT SIT EST Diagnosis: HYPERTENSION[ICD9: 401.9] Diagnosis: MIGRAINE NOS/NOT INTRCBL[ICD9: 346.90] Diagnosis: DIZZINESS/VERTIGO[ICD9: 780.4] Diagnosis: EUSTACHIAN TUBE DYSFUNCTION[ICD9: 381.81] Diagnosis: Plantar warts[ICD9: 078.12] Caren ANDERS [facility] CPT-4: 20812 09/05/2011 OFFICE/OUTPATIENT SIT EST Diagnosis: SINUSITIS, ACUTE[ICD9: 461.9] Diagnosis: COUGH[ICD9: 786.2] Diagnosis: PHARYNGITIS, ACUTE[ICD9: 462] Diagnosis: DIARRHEA[ICD9: 787.91] Caren ANDERS DO [employer] CPT-4: 18460 04/28/2011 OFFICE/OUTPATIENT SIT EST Diagnosis: Finger pain[ICD9: 729.5] Diagnosis: Nasal pain[ICD9: 478.19] Diagnosis: MIGRAINE NOS/NOT INTRCBL[ICD9: 346.90] Diagnosis: Metrorrhagia[ICD9: 626.6] Caren Joneschandrikacara GARBERCAREN MpRajni ARANZAER DO [employer] CPT-4: 21914 04/13/2011 OFFICE/OUTPATIENT SIT EST Diagnosis: Frequent urination[ICD9: 788.41] Caren Robertchandrikacara GARBERCAREN MpRajni ARANZAER DO [facility] CPT-4: 60749 02/04/2011 PREV VISIT EST AGE 4 0-64 Anni GARBERLINE Evelyn JONESNDER DO [employer] CPT-4: 05825 12/06/2010 SPECIMEN HANDLING Anni Brennan CAREN MpRajni ROBERTNDER DO [facility] CPT-4: 85547 12/06/2010 ([id number]) OFFICE/OUTPA TIENT VISIT, EST Caren JONES NDER DO [employer] CPT-4: 35743 04/14/2010 ([id number]) OFFICE/OUTPA TIENT VISIT, EST Caren GARBERLINE SRajni JONES NDER DO [employer] CPT-4: 42655 02/16/2010 ([id number]) OFFICE/OUTPA TIENT VISIT, EST Carenjuana Anders CAREN SRajni ROBERT NDER DO [employer] CPT-4: 77217 02/03/2010 ([id number]) OFFICE/OUTPA TIENT VISIT, EST Carenjuana GARBERLINE [facility]aj[facility] CPT-4: 34979 01/27/2010 ([id number]) OFFICE/OUTPA TIENT VISIT, EST Caren GreshamRajni [facility] CPT-4: 02010 01/25/2010 ([id number]) PREV VISIT, EST, AGE 40-64 Anni Brennan CAREN Rivas JAMAL DO [employer] CPT-4: 23542 12/08/2009 ([id number]) OFFICE/OUTPA TIENT VISIT, SHAQ Caren CEE DO [employer] CPT-4: 78678 09/01/2009 Plan of Care Planned Activity Notes C odes Status Date Visit Diagnosis Plan: Essential (primary) hypertension Discussion: stable on current medications. rtc 6 months for annual or sooner if needed. will recheck labs at annual. ICD-9 : 401.9 ICD-10 : I10 01/15/2019 Appointment: Silvia Ramírez [address] FOLLOW UP 01/15/2019 Patient Education: High [...] : J20.9 07/20/2018 Appointment: Nicol Arroyo [address] 07/20/2018 Patient Education: prednisone- Optimize[employer] Coupon [phone] Completed 07/20/2018 Patient Education: [facility] - Saving [employer] - Ventolin HFA - 18-64 - Dynamic Portal ID Completed 07/20/2018 Patient Education: azithromycin- Opt[employer] Coupon [phone] Completed 07/20/2018 Appointment: Caren Anders [phone] [facility] [place] [facility] 06/29/2018 Visit Diagnosis Plan: Encounter [...] : Z00.00 06/11/2018 Appointment: Caren Anders WPtel: [facility] Annual Well Visit 06/11/2018 Patient Education: Valtrex- Optimize[employer] Coupon [id number] Completed 06/11/2018 Patient Education: mupirocin calcium- Op timizeRX Coupon [id number] Completed 06/11/2018 Visit Diagnosis Plan: Encounter for [...] : Z00.00 04/05/2017 Appointment: Caren Anders WPtel: [address] [place] [address] Annual Well Visit 04/05/2017 Patient Education: Patient Medication Summary Completed 04/05/2017 Care Plan: Referral Order SNOMED-CT : [id number] Pending 04/05/2017 Patient Education: Patient Medication Summary Completed 08/02/2016 Care Plan: MAMMOGRAM SCREENING LOINC : 81153-8 Pending 08/02/2016 Visit Plan: Injection as above [...] up PRN 02/12/2016 Appointment: Chiara Phelan [phone] [id number] 02/10 confirmed~ ACUTE ILLNESS 02/12/2016 Patient Education: Patient Medication Summary Completed 02/12/2016 Visit Plan: Rxs as above OTC meds r eviewed - avoid decongestants Rest, fluids, vicks, humidifier, etc Follow up PRN 01/25/2016 Visit Plan: Rxs as above OTC meds r eviewed - avoid decongestants Rest, fluids, vicks, humidifier, etc Follow up PRN 01/25/2016 Appointment: Chiara Phelan Jeannine5 [id number] ACUTE ILLNESS 01/25/2016 Patient Education: Patient Medication [...] reviewed Follow up PRN 10/01/2015 Appointment: Chiara hPelan Jeannine5 [id number] ACUTE ILLNESS 10/01/2015 Patient Education: Patient Medication Summary Completed 10/01/2015 Visit Plan: Obtain lab results Pap done Mammogram ordered Patient awaiting on Dr. Cuello to restart botox for migraines 08/04/2015 Appointment: Caren Anders WPtel: [address] [place], [place] [phone] 08/02confirmed-sp Annual Well Visit 08/04/2015 Patient Education: Patient Medication Summary Completed 08/04/2015 Care Plan: MAMMOGRAM SCREENING LOINC : 85358-1 Ordered 08/04/2015 Patient Education: Patient Medication Summary Completed 07/29/2015 Care Plan: CBC Ordered 07/29/2015 Visit Plan: Discussed likely perime nopause Will observe through July and then at [facility] with fasting lab including hormone levels If bleeding returns will proceed with pelvic US Check into chiropractor for ma nipulation for right low back/hip pain 05/27/2015 Visit Plan: Discussed likely perime nopause Will observe through July and then at [facility] with fasting lab including hormone levels If bleeding returns will proceed with pelvic US Check into chiropractor for ma nipulation for right low back/hip pain 05/27/2015 Appointment: Caren Anders WPtel: [address] [place], [place] [id number] 05/26/15 vm cn 05/26/15 appt confirmed c n ACUTE ILLNESS 05/27/19 Patient Education: Patient Medication Summary Completed 05/27/2015 Referral: Ignacio Esposito WPtel: [facility] [address] [id number] [place] Referral Initiated 04/07/2015 Referral: Caren Anders WPtel: [address] [place], [place] [phone] 03/26/15 Arrival time 9:30 am Procedure 9:45 am. @ [facility] [address] [facility] Matthew 307 Come sleep deprived(4 hours or less) clean hair, no product in hair, no caffeen Initiated 03/26/2015 Visit Plan: Toradol now with compaz ine po when gets home Proceed with updated EEG/neurology evaluation--discussed may need to go on antiseizure meds and drop out of migraine study No driving for 6mos Discussed w blaine Cuello at [facility] in [place]--he wants to see her in next 1-2weeks 03/10/2015 Appointment: Caren Anders WPtel: [address] [place], [place] [id number] ACUTE ILLNESS 03/10/2015 Patient Education: Patient Medication Summary Completed 03/10/2015 Appointment: Caren Anders WPtel: [phone] [facility] [place] LAB 07/29/2014 Patient Education: Patient Medication Summary Completed 07/29/2014 Visit Plan: Check Fasting lab Mammo gram ordered Pap next year Lamisil for 3mos with monthly LFTs 06/30/2014 Appointment: Caren Anders WPtel: [address] [place] [address] Annual Well Visit 06/30/2014 Patient Education: Patient Medication Summary Completed 06/30/2014 Appointment: Caren Anders WPtel: [address] [place], [place] [phone] Annual Well Visit 06/18/2014 Appointment: Caren Anders WPtel: [address] [place] [address] ACUTE ILLNESS 06/03/2014 Appointment: Lyndsey Thorpe WPtel: [address] [place] [address] 02/05 ACUTE ILLNESS 02/06/2014 Visit Plan: Benadryl 25mg q HS Clar itin 10mg q AM Prednisone for 1week Call in 1week on cough and rash 08/12/2013 Appointment: Caren Anders WPtel: [address] [place] [address] 08/09 FOLLOW UP 08/12/2013 Patient Education: Patient Medication Summary Completed 08/12/2013 Visit Plan: To [facility] for CXR PA and Lateral Added Macrobid to current antibiotics. Recommended referal to Dr Alejo's office for resistant UTI's 05/31/2013 Appointment: Lyndsey Thorpe WPtel: [address] [place], [place] [phone] ACUTE ILLNESS 05/31/2013 Patient Education: Patient Medication Summary Completed 05/31/2013 Visit Plan: Kenalog 40 mg / Depo Me droll 40 mg IM now Complete antibiotics. 05/27/2013 Appointment: Lyndsey Thorpe WPtel: [address] [place], [place] [phone] ACUTE ILLNESS 05/27/2013 Patient Education: Patient Medication Summary Completed 05/27/2013 Visit Plan: Lamisil for 3mos Nystat in/TAC topically Check fasting lab 02/26/2013 Appointment: Caren Anders WPtel: [address] [place], [place] [phone] 02/25 ACUTE ILLNESS 02/26/2013 Patient Education: Patient [...] Mycoplasma infection) 11/29/2012 Appointment: Anni Brennan WPtel: [address] [place] [address] FOLLOW UP 11/29/2012 Patient Education: Patient Medication Summary Completed 11/29/2012 Visit Plan: CBC and mycoplasma lab draw. Levaquin and medrol dose pack with codeine/guiaf cough syrup. 11/12/2012 Appointment: Anni Brennan WPtel: [address] [place], [place] [phone] ACUTE ILLNESS 11/12/2012 Patient Education: Patient Medication Summary Completed 11/12/2012 Visit Plan: Azithromyacin and medro l dose pack. Will focus on hydration and rest. Pt. will notify if symptoms worsen or do not improve. 07/30/2012 Appointment: Anni Brennan WPtel: [address] [place], [place] [phone] ACUTE ILLNESS 07/30/2012 Patient Education: Patient Medication Summary Completed 07/30/2012 Appointment: Caren Anders WPtel: [address] [place], [place] [phone] US LAB 06/05/2012 Patient Education: Patient Medication [...] from scratching. 06/04/2012 Appointment: Anni Brennan WPtel: [address] [place], [place] [id number] ACUTE ILLNESS 06/04/2012 Patient Education: Patient Medication Summary Completed 06/04/2012 Visit Plan: Pap done Mammo ordered Pt has started botox for Migraines--next shots end of this month Fasting lab in 12/21/2011 Appointment: Caren Anders WPtel: [address] [place], [place] [phone] PAP 12/21/2011 Patient Education: Patient Medication Summary Completed 12/21/2011 Visit Plan: Encouraged fluids and c ontinued use of stool softener. Pt. reports long standing concerns with constipation. Discussed that will likely proceed with colonoscopy. Referral to Dr. Long. Will apply beta methasone to rash and use rectal foam and topical dibucaine. 10/07/2011 Appointment: Anni Brennan WPtel: [address] [place], [place] [id number] ACUTE ILLNESS 10/07/2011 Patient Education: Patient Medication [...] for now 09/05/2011 Appointment: Caren Anders WPtel: [facility] [place] [phone] FOLLOW UP 09/05/2011 Patient Education: Patient Medication Summary Completed 09/05/2011 Visit Plan: imodium. Discussed the importance of hydration. Phoned Cefuroxime and codeine/guiaf into [facility]. Pt. will notify if symptoms worsen. 04/28/2011 Appointment: Anni Brennan WPtel: [address] [place], [place] [phone] ACUTE ILLNESS 04/28/2011 Patient Education: Patient Medication Summary Completed 04/28/2011 Visit Plan: Use Aleve BID Observe n ose and finger Check Chem 7, estradiol, FSH, LH, TSH 04/13/2011 Appointment: Caren Anders WPtel: [address] [place], [place] [phone] ACUTE ILLNESS 04/13/2011 Patient Education: Patient Medication Summary Completed 04/13/2011 Visit Plan: Septra ds. and Pyridium . Urine sent for culture. Pt. will be notified of culture results. Pt will notify if symptoms are worsening. Will consider lab and imaging studies if symptoms worsen. 02/04/2011 Appointment: Anni Brennan WPtel: [address] [place], [place] [phone] ACUTE ILLNESS 02/04/2011 Patient Education: Patient Medication Summary Completed 02/04/2011 Appointment: Caren Anders WPtel: [facility] LAB 12/21/2010 Patient Education: Patient Medication Summary Completed 12/21/2010 Visit Plan: Dec 13. appnt with trevon chamorro specialist. will ask about EEG at next appnt. Fasting labs: CBC, CMP, TSH, Free T4 and Lipids. Discussed slight discoloration above rt. eyebrow. Will consider surgical refer ral if area does not resolve. Mammo scheduled. 12/06/2010 Appointment: Anni Brennan WPtel: [phone] [facility] PAP 12/06/2010 Patient Education: Patient Medication Summary [...] colon cancer 04/14/2010 Appointment: Caren Anders WPtel: [address] [place], [place] [phone] US FOLLOW UP 04/14/2010 Patient Education: Patient Medication Summary Completed 04/14/2010 Appointment: Caren Anders WPtel: [address] [place], [place] [phone] US LAB 03/17/2010 Visit Plan: Increase Topamax to 50m g BID Cont Flexeril See Neurology next week 02/16/2010 Appointment: Caren Anders WPtel: [address] [place], [place] [phone] US FOLLOW UP 02/16/2010 Patient Education: Patient Medication Summary Completed 02/16/2010 Visit Plan: Pt will seek re-eval if symptoms worsen. 02/03/2010 Appointment: Anni Brennan WPtel: [address] [place] [address] ACUTE ILLNESS 02/03/2010 Patient Education: Patient Medication Summary Completed 02/03/2010 Visit Plan: Start Topamax for proph ylaxis See Neurology Discussed triggers such as chocolate Start Cipro as ordered May try Midrin and Compazine as ordered Off work rest of week 01/27/2010 Appointment: Caren Anders WPtel: [address] [place], [place] [phone] ER Follow UP 01/27/2010 Patient Education: Patient Medication Summary Completed 01/27/2010 Visit Plan: Check CT head Suspect c omplex migraine vs TIA--esequiel await CT results 01/25/2010 Appointment: Caren Anders WPtel: [address] [place], [place] [phone] ACUTE ILLNESS 01/25/2010 Patient Education: Patient Medication Summary Completed 01/25/2010 Appointment: Caren Anders WPtel: [address] [place], [place] [phone] US LAB 12/09/2009 Patient Education: Patient Medication Summary Completed 12/09/2009 Visit Plan: Claudia will come in [facility] for Lipids, CBC, CMP and TSH. Mammo is scheduled with [facility]. 12/08/2009 Appointment: Anni Brennan WPtel: [phone] [facility] US PAP 12/08/2009 Patient Education: Patient Medication Summary Completed 12/08/2009 Visit Plan: Add Macrobid Toradol gi weston Zipsor 25mg QID for 5 days OMT done Call in 2days on back 09/01/2009 Appointment: Caren Anders WPtel: [phone] [id number] ACUTE ILLNESS 09/01/2009 Patient Education: Patient Medication Summary Completed 09/01/2009 Appointment: Caren Anders WPtel: [phone] [id number] LAB 08/26/2009 Patient Education: Patient Medication Summary Completed 08/26/2009 Referral: Partha Long WPtel: [phone] [id number] [place] Referral sent. Dr. Coburn's office will call patient to schedule. Completed Instructions Comment . Use Aleve BID Observe nose and finger Check Chem 7, estradiol, FSH, LH, TSH . Pap done Mammo ordered Pt has started botox for Migraines--next shots end of this month Fasting lab in April . Reports that rash has been present in one form or another since the beginning of the year. Reports that betamethasone has been helpful in October. Possible dermatology consult if no improvment. Diflucan. Nystatin powder and will use betamethasone also. (Recently finished a round of antibiotics for Mycoplasma infection) . Increase Topamax t o 50mg BID Cont Flexeril See Neurology next week . Office dip abnorma l Culture pending Rx as above Supportive care reviewed Follow up PRN . Office dip abnorma l Culture pending Rx as above Supportive care reviewed Follow up PRN . Toradol now with c ompazine po when gets home Proceed with updated EEG/neurology evaluation--discussed may need to go on antiseizure meds and drop out of migraine study No driving for 6mos Discussed with Dr. Cuello at [facility] in [place]--he wants to see her in next 1-2weeks . Pt will seek re-ev al if [...] manipulation for right low back/hip pain . Office dip abnorma l Culture pending Rx as above Supportive care reviewed Follow up PRN . Start Topamax for prophylaxis See Neurology Discussed triggers such as chocolate Start Cipro as ordered May try Midrin and Compazine as ordered Off work rest of week . Add Macrobid Toradol given Zipsor 25mg QID for 5 days OMT done Call in 2days on back . imodium. Discusse d the importance of hydration. Phoned Cefuroxime and codeine/guiaf into [facility]. Pt. will notify if symptoms worsen. . Rxs as above OTC meds reviewed - avoid decongestants Rest, fluids, vicks, humidifier, etc Follow up PRN . Check CT head Suspect complex migraine vs TIA--esequiel await CT results . Rxs as above OTC meds reviewed - avoid decongestants Rest, fluids, vicks, humidifier, etc Follow up PRN . Continue elavil bu [...] CMP and TSH. Mammo is scheduled with [facility]. . To [facility] fo r CXR PA and Lateral [...] pack to help refrain from scratching. . Check Fasting lab Mammogram ordered Pap [...] Continue supportive care Follow up PRN . Dec 13. appnt ut th headache specialist. will ask about EEG at next appnt. Fasting labs: CBC, CMP, TSH, Free T4 and Lipids. Discussed slight discoloration above rt. eyebrow. Will consider surgical referral if area does not resolve. Mammo scheduled. . Obtain lab results Pap done Mammogram ordered Patient awaiting on Dr. Cuello to restart botox for migraines . Benadryl 25mg q HS Claritin 10mg q AM Prednisone for 1week Call in 1week on cough and rash . Septra ds. and Py ridium. Urine sent for culture. Pt. will be notified of culture results. Pt will notify if symptoms are worsening. Will consider lab and imaging studies if symptoms worsen. . Lisinopril 1/2 in AM and Atenolol 1/2 pm for 5 days then stop lisinopril and increase atenolol to 25mg q PM Check 2-D Echo . Azithromyacin and medrol dose pack. Will focus on hydration and rest. Pt. will notify if symptoms worsen or do not improve. . CBC and mycoplasma lab draw. Levaquin and medrol dose pack with codeine/guiaf cough syrup. . Lisinopril 1/2 in AM and Atenolol [...]
--- OUTSIDE RECORDS SUMMARY | 2019-10-11 18:42 | XMS REPORT | CCD ---
Author Author Claudia Anders D.O. Organization [facility] Address [address] [place] [address] Phone Care Team Providers Care [employer] Professor Name Role Phone Caren Anders D.O., PP Unavailable CCM Unavailable Summary Purpose Interface Exchange Insurance Providers Payer name Policy type / Coverage type Covered democrat ID Effective Begin Date Effective End Date Blue Cross Blue Shield Blue Cross/Bl ue Shield [id number] Un known Family history Father Diagnosis Age At Onset Congestive heart failure Unknown Cancer Unknown Diabetes mellitus Type 2 Unknown Social History Social History Element Codes Description Effective Dates Tobacco history SNOMED CT: 2251535 Former smoker 02/03/2015 Allergies, Adverse Reactions, Alerts [...] Fill Instructions Zantac 300 mg tablet RxNorm: 649108 TAKE ONE TABLET BY MOUTH EVERY NIGHT AT BEDTIME 01/15/2019 03/15/2019 Active atenolol 25 mg tablet RxNorm: 259041 Tablet(s) TAKE ONE TABLET BY MOUTH DAILY , NEEDS APPT. BEFORE FURTHER REFILLS 01/08/2019 02/06/2019 Active atenolol 25 mg tablet RxNorm: 530718 Tablet(s) TAKE ONE TABLET BY MOUTH DAILY , NEEDS APPT. BEFORE FURTHER REFILLS 12/31/2018 01/07/2019 Inactive atenolol 25 mg tablet RxNorm: 617361 TAKE ONE TABLET BY MOUTH DAILY, NEEDS AP PT. BEFORE FURTHER REFILLS 12/14/2018 12/31/2018 Inactive tizanidine 4 mg tablet RxNorm: 139126 TAKE ONE TABLET BY MOUTH EVERY 8 HOURS A S NEEDED FOR MUSCLE SPASMS 11/16/2018 12/25/2018 Inactive Naprosyn 500 mg tablet RxNorm: 118359 1 Tablet(s) PO BID 10/01/2018 01/28/2019 Active Maxalt 10 mg tablet RxNorm: 048235 1 Tablet(s) PO at headache onset. May re peat in 2 hours if headache remains. Max of 2/24hr 10/01/2018 11/29/2018 Inactive atenolol 25 mg tablet RxNorm: 433401 Tablet(s) TAKE ONE TABLET BY MOUTH DAILY . 10/01/2018 12/13/2018 In active atenolol 25 mg tablet RxNorm: 276352 TAKE ONE TABLET BY MOUTH DAILY. NEED APPOINTMENT BEFORE FURTHER REFILLS. 09/24/2018 09/30/2018 Inactive atenolol 25 mg tablet RxNorm: 382758 TAKE ONE TABLET BY MOUTH DAILY, NEEDS AP PT. BEFORE FURTHER REFILLS 09/11/2018 09/23/2018 Inactive Naprosyn 500 mg tablet RxNorm: 776833 1 Tablet(s) PO BID Due for annual labs a nd appointment 09/11/2018 09/30/2018 Inactive atenolol 25 mg tablet RxNorm: 794576 TAKE ONE TABLET BY MOUTH DAILY, NEEDS AP PT. BEFORE FURTHER REFILLS 08/29/2018 09/10/2018 Inactive doxycycline hyclate 100 mg tablet RxNorm: 3331263 1 Tablet(s) PO BID 07/27/2018 08/05/2018 Inactive doxycycline hyclate 100 mg tablet RxNorm: 5119510 1 Tablet(s) PO BID 07/27/2018 07/26/2018 Inactive Ventolin HFA 90 mcg/ actuation aerosol inhaler RxNorm: 5263706 2 Puff(s) INH Q6H 07/20/2018 08/18/2018 In active prednisone 20 mg tablet RxNorm: 851818 take 2 tabs for 3 days, then 1 tab for 3 days 07/20/2018 07/25/2018 Inactive azithromycin 250 mg tablet RxNorm: 358693 Take 2 tabs today and one tab days 2-5 07/20/2018 07/25/2018 In active z-pack atenolol 25 mg tablet RxNorm: 796980 TAKE ONE TABLET BY MOUTH DAILY, NEEDS AP PT. BEFORE FURTHER REFILLS 07/13/2018 08/26/2018 Inactive mupirocin 2 % topica l cream RxNorm: 320499 Application TOP BID 06/11/2018 01/14/2019 Inactive Valtrex 1 gram tablet RxNorm: 197712 1 Tablet(s) PO BID 06/11/2018 06/20/2018 Inactive atenolol 25 mg tablet RxNorm: 062439 1 Tablet(s) PO QD NEEDS APPOINTMENT BEFO RE FURTHER REFILLS 05/14/2018 07/12/2018 Inactive Naprosyn 500 mg tablet RxNorm: 521855 1 Tablet(s) PO BID Due for annual labs a nd appointment 04/12/2018 05/11/2018 Inactive Zantac 300 mg tablet RxNorm: 919706 TAKE ONE TABLET BY MOUTH EVERY NIGHT AT BEDTIME 04/09/2018 07/07/2018 Inactive tizanidine 4 mg tablet RxNorm: 125589 TAKE ONE TABLET BY MOUTH EVERY 8 HOURS A S NEEDED FOR MUSCLE SPASMS 02/20/2018 04/20/2018 Inactive Maxalt 10 mg tablet RxNorm: 637937 Tablet(s) TAKE ONE TABLET BY MOUTH NE EDED FOR HEADACHE 01/09/2018 03/09/2018 Inactive Naprosyn 500 mg tablet RxNorm: 748931 Tablet(s) TAKE ONE TABLET BY MOUTH TWICE A DAY 01/08/2018 04/12/2018 Inactive atenolol 25 mg tablet RxNorm: 557109 1 Tablet(s) PO QD 01/08/2018 05/14/2018 Inactive Naprosyn 500 mg tablet RxNorm: 710064 TAKE ONE TABLET BY MOUTH TWICE A DAY 12/10/2017 01/08/2018 In active tizanidine 4 mg tablet RxNorm: 112258 1 Tablet(s) PO Q8H as needed for muscle spasm 11/27/2017 11/26/2017 Inactive Maxalt 10 mg tablet RxNorm: 978316 TAKE ONE TABLET BY MOUTH NEEDED FOR H EADACHE 11/13/2017 01/09/2018 Inactive Naprosyn 500 mg tablet RxNorm: 641744 TAKE ONE TABLET BY MOUTH TWICE A DAY 11/13/2017 12/09/2017 In active atenolol 25 mg tablet RxNorm: 214643 1 Tablet(s) PO QD 09/06/2017 01/08/2018 Inactive Naprosyn 500 mg tablet RxNorm: 308362 1 Tablet(s) PO BID 09/04/2017 11/02/2017 Inactive Maxalt 10 mg tablet RxNorm: 354717 1 Tablet(s) PO as needed for headache 08/07/2017 11/12/2017 In active Naprosyn 500 mg tablet RxNorm: 668050 1 Tablet(s) PO BID 07/07/2017 09/04/2017 Inactive Naprosyn 500 mg tablet RxNorm: 621990 1 Tablet(s) PO BID TAKE ONE TABLET BY MO UTH TWICE A DAY 06/08/2017 07/07/2017 Inactive tizanidine 4 mg tablet RxNorm: 099956 1 Tablet(s) PO Q8H as needed for muscle spasm 05/10/2017 11/27/2017 Inactive atenolol 25 mg tablet RxNorm: 969376 1 Tablet(s) PO QD 05/10/2017 09/06/2017 Inactive Maxalt 10 mg tablet RxNorm: 722972 1 Tablet(s) PO as needed for headache 05/10/2017 08/06/2017 In active atenolol 25 mg tablet RxNorm: 213883 1 Tablet(s) PO QD LAST REFILL---NEEDS UP DATED LAB AND APPOINTMENT 04/04/2017 05/03/2017 Inactive Zantac 300 mg tablet RxNorm: 560825 Tablet(s) TAKE ONE TABLET BY MOUTH EVERY NIGHT AT BEDTIME 04/03/2017 07/31/2017 Inactive atenolol 25 mg tablet RxNorm: 064461 1 Tablet(s) PO QD LAST REFILL---NEEDS UP DATED LAB AND APPOINTMENT 03/02/2017 04/04/2017 Inactive atenolol 25 mg tablet RxNorm: 602720 1 Tablet(s) PO QD LAST REFILL---NEEDS UP DATED LAB AND APPOINTMENT 02/01/2017 05/10/2017 Inactive Naprosyn 500 mg tablet RxNorm: 998537 1 Tablet(s) PO BID TAKE ONE TABLET BY MO UTH TWICE A DAY 01/02/2017 06/08/2017 Inactive atenolol 25 mg tablet RxNorm: 704656 1 Tablet(s) PO QD Need Labs and appointm ent 12/26/2016 02/01/2017 In active Naprosyn 500 mg tablet RxNorm: 150993 1 Tablet(s) PO BID TAKE ONE TABLET BY [facility] TWICE A DAY 12/05/2016 01/02/2017 Inactive Naprosyn 500 mg tablet RxNorm: 290315 Tablet(s) TAKE ONE TABLET BY MOUTH TWICE A DAY 11/07/2016 12/05/2016 Inactive Naprosyn 500 mg tablet RxNorm: 995772 Tablet(s) TAKE ONE TABLET BY MOUTH TWICE A DAY 10/06/2016 11/07/2016 Inactive Naprosyn 500 mg tablet RxNorm: 362625 TAKE ONE TABLET BY MOUTH TWICE A DAY 09/04/2016 10/03/2016 In active Naprosyn 500 mg tablet RxNorm: 793785 TAKE ONE TABLET BY MOUTH TWICE A DAY 07/01/2016 08/29/2016 In active Naprosyn 500 mg tablet RxNorm: 575643 TAKE ONE TABLET BY MOUTH TWICE A DAY 04/27/2016 06/25/2016 In active Zantac 300 mg tablet RxNorm: 282436 TAKE ONE TABLET BY MOUTH EVERY NIGHT AT BEDTIME 03/09/2016 04/03/2017 Inactive Levaquin 500 mg tablet RxNorm: 974541 1 Tablet(s) PO QD 02/12/2016 02/18/2016 Inactive azithromycin 250 mg tablet RxNorm: 569573 2 Tablet(s) PO on day one then 1 tab on days 2-5 01/25/2016 01/24/2016 Inactive Medrol (Camilo) 4 mg ta blets in a dose pack RxNorm: 097380 Take as directed 01/25/2016 04/04/2017 In active Naprosyn 500 mg tablet RxNorm: 565403 1 Tablet(s) PO BID 01/15/2016 04/13/2016 Inactive Brisdelle 7.5 mg cap violeta RxNorm: 2628366 1 Capsule(s) PO QHS 12/10/2015 04/04/2017 Inactive atenolol 25 mg tablet RxNorm: 288141 TAKE ONE TABLET BY MOUTH DAILY 12/04/2015 12/26/2016 In active Maxalt 10 mg tablet RxNorm: 697687 1 Tablet(s) PO as needed for headache 10/05/2015 05/09/2017 In active Bactrim DS 800 mg-16 0 mg tablet RxNorm: 070623 1 Tablet(s) PO BID 10/01/2015 10/07/2015 Inactive Zantac 300 mg tablet RxNorm: 345855 Tablet(s) TAKE ONE TABLET BY MOUTH EVERY NIGHT AT BEDTIME 10/01/2015 11/29/2015 Inactive atenolol 25 mg tablet RxNorm: 205957 TAKE ONE TABLET BY MOUTH DAILY 06/09/2015 08/07/2015 In active Naprosyn 500 mg tablet RxNorm: 027340 TAKE ONE TABLET BY MOUTH TWICE A DAY 05/29/2015 01/15/2016 In active Zantac 300 mg tablet RxNorm: 386907 Tablet(s) TAKE ONE TABLET BY MOUTH EVERY NIGHT AT BEDTIME 03/30/2015 10/01/2015 Inactive Compazine 10 mg tablet RxNorm: 593518 1 Tablet(s) PO TID as needed for nausea 03/10/2015 05/26/2015 In active Prevacid 30 mg capsu le,delayed release RxNorm: 769071 Capsule(s) TAKE ONE C APSULE BY MOUTH ONCE A DAY 12/19/2014 05/17/2015 Inactive Naprosyn 500 mg tablet RxNorm: 448861 1 Tablet(s) PO BID 12/02/2014 03/01/2015 Inactive Zantac 300 mg tablet RxNorm: 157440 TAKE ONE TABLET BY MOUTH EVERY NIGHT AT BEDTIME 09/18/2014 03/30/2015 Inactive Naprosyn 500 mg tablet RxNorm: 937438 1 Tablet(s) PO BID 09/04/2014 12/02/2014 Inactive atenolol 25 mg tablet RxNorm: 760784 1 Tablet(s) PO QD 07/17/2014 03/09/2015 Inactive Zantac 300 mg tablet RxNorm: 442746 1 Tablet(s) PO QHS 06/30/2014 09/17/2014 Inactive Lamisil 250 mg tablet RxNorm: 610247 1 Tablet(s) PO QD 06/30/2014 09/27/2014 Inactive Treximet 85 mg-500 m g tablet RxNorm: 583667 Tablet(s) PO PRN as n eeded 06/30/2014 03/09/2015 In active Prevacid 30 mg capsu le,delayed release RxNorm: 244872 TAKE ONE CAPSULE BY M OUTH ONCE A DAY 06/16/2014 12/19/2014 Inactive Treximet 85 mg-500 m g tablet RxNorm: 233826 Tablet(s) PO PRN as n eeded 06/06/2014 06/29/2014 In active Pepcid 20 mg tablet RxNorm: 305611 1 Tablet(s) PO QHS 03/19/2014 06/29/2014 Inactive [SAVINGS FOR UNINSURED PATIENTS -- BIN:100641, PCN: [id number], Group: [id number], ID# [id number], Process claim through [employer]Job[employer], for questions: . THIS IS NOT INSURANCE.] atenolol 25 mg tablet RxNorm: 162219 1 Tablet(s) PO QD 01/15/2014 07/17/2014 Inactive Pepcid 20 mg tablet RxNorm: 256873 1 Tablet(s) PO QHS 12/23/2013 12/22/2013 Inactive Pepcid 20 mg tablet RxNorm: 121095 1 Tablet(s) PO QHS 12/23/2013 03/19/2014 Inactive [SAVINGS FOR UNINSURED PATIENTS -- BIN:913130, PCN: [id number], Group: [id number], ID# [id number], Process claim through Not[employer]ix[employer], for questions: . THIS IS NOT INSURANCE.] Prevacid 30 mg capsu le,delayed release RxNorm: 591462 1 Capsule(s) PO QD 12/23/2013 06/15/2014 In active [SAVINGS FOR UNINSURED PATIENTS -- BIN:0 82462, PCN: [id number], Group: [id number], ID# [id number], Process claim through [employer]Imp[employer], for questions: . THIS IS NOT INSURANCE.] loratadine 10 mg tablet RxNorm: 629640 TAKE ONE TABLET BY MOUTH EVERY MORNING 09/09/2013 04/06/2014 In active nystatin-triamcinolo ne 100,000 unit/g-0.1 % topical cream RxNorm: 8676832 1 Application TOP QHS to rash 08/22/2013 06/29/2014 Inactive prednisone 20 mg tablet RxNorm: 221176 1 Tablet(s) PO BID 08/12/2013 08/18/2013 Inactive loratadine 10 mg tablet RxNorm: 707452 1 Tablet(s) PO QAM 08/12/2013 09/08/2013 Inactive Treximet 85 mg-500 m g tablet RxNorm: 323487 Tablet(s) PO PRN 07/22/2013 07/21/2013 Inactive atenolol 25 mg tablet RxNorm: 338929 1 Tablet(s) PO QD 07/22/2013 01/15/2014 Inactive Prevacid 30 mg capsu le,delayed release RxNorm: 543061 1 Capsule(s) PO BID 07/22/2013 12/22/2013 In active nitrofurantoin macro crystal 100 mg capsule RxNorm: 402444 1 Capsule(s) PO BID 05/31/2013 06/06/2013 In active albuterol sulfate HF A 90 mcg/actuation aerosol inhaler RxNorm: 093737 2 Puff(s) INH QID 05/31/2013 06/13/2013 Inactive azithromycin 250 mg tablet RxNorm: 530193 2 Tablet(s) PO QD 05/27/2013 06/02/2013 Inactive Prevacid 30 mg capsu le,delayed release RxNorm: 341612 1 Capsule(s) PO BID 03/20/2013 07/21/2013 In active Lamisil 250 mg tablet RxNorm: 631992 1 Tablet(s) PO QD 02/26/2013 05/26/2013 Inactive betamethasone eloy te 0.1 % Topical Cream RxNorm: 280781 1 Application TOP BID 11/29/2012 12/12/2012 In active Diflucan 100 mg tablet RxNorm: 733115 1 Tablet(s) PO QD 11/29/2012 12/08/2012 Inactive nystatin 100,000 uni t/gram Topical Powder RxNorm: 959910 1 Gram(s) TOP BID belinda ly to affected areas twice daily 11/29/2012 12/08/2012 Inactive Medrol (Camilo) 4 mg ta blets in a dose pack RxNorm: 989655 Tablet(s) PO as direc nico 11/12/2012 02/25/2013 In active Levaquin 750 mg tablet RxNorm: 700455 1 Tablet(s) PO QD antibiotic 11/12/2012 11/21/2012 Inactive Prevacid 30 mg capsu le,delayed release RxNorm: 426079 1 Capsule(s) PO BID 09/17/2012 03/15/2013 In active azithromycin 250 mg tablet RxNorm: 077127 2 Tablet(s) PO QD 07/30/2012 08/06/2012 Inactive nystatin 100,000 uni t/g Ointment RxNorm: 016260 1 Gram(s) TOP BID belinda ly to affected area twice daily 06/21/2012 06/30/2012 Inactive nystatin 100,000 uni t/g Ointment RxNorm: 839225 1 Gram(s) TOP BID belinda ly to affected area twice daily 06/04/2012 06/13/2012 Inactive Prevacid 30 mg capsu le,delayed release RxNorm: 904324 1 Capsule(s) PO BID 03/01/2012 08/27/2012 In active Omnaris 50 mcg Nasal [place] RxNorm: 793958 2 [place] NASAL QD each nostril 12/21/2011 03/09/2015 In active betamethasone eloy te 0.1 % Topical Cream RxNorm: 105269 1 Application TOP BID 10/07/2011 10/20/2011 In active dibucaine 1 % Rectal Ointment RxNorm: 952696 1 RTL TID 10/07/2011 10/16/2011 Inactive Proctofoam 1 % Topic al Foam RxNorm: 104933 1 TOP BID 10/07/2011 10/16/2011 Inactive Treximet 85 mg-500 m g Tab RxNorm: 794401 Tablet(s) PO Take 1 a t headache onset and may repeat 1 in two hours if needed 09/05/2011 No Stop Date Active Prevacid 30 mg capsu le,delayed release RxNorm: 791872 1 Capsule(s) PO BID 08/30/2011 02/25/2012 In active Flexeril 5 mg tablet RxNorm: 524328 1-2 Tablet(s) PO QHS 08/05/2011 06/29/2014 Inactive prn spasm cefuroxime axetil 50 0 mg Tab RxNorm: 276750 1 Tablet(s) PO BID 04/28/2011 05/07/2011 Inactive Flexeril 5 mg Tab RxNorm: 922830 1-2 Tablet(s) PO QHS 04/20/2011 08/05/2011 Inactive prn spasm Prevacid 30 mg Capsu le, delayed release RxNorm: 260192 1 Capsule(s) PO BID 02/23/2011 08/30/2011 In active Prevacid 30 mg Cap RxNorm: 104360 1 Capsule(s) PO QD 02/21/2011 02/22/2011 Inactive Pyridium 100 mg Tab RxNorm: 9022046 1 Tablet(s) PO TID 02/04/2011 02/05/2011 Inactive will turn urine orange/red. Septra DS 800 mg-160 mg Tab RxNorm: 621927 1 Tablet(s) PO BID 02/04/2011 02/08/2011 Inactive lisinopril 10 mg Tab RxNorm: 584912 1 Tablet(s) PO QD 12/06/2010 01/04/2011 Inactive amitriptyline 10 mg Tab RxNorm: 243707 2 Tablet(s) PO QD 12/06/2010 01/04/2011 Inactive Treximet 85 mg-500 m g Tab RxNorm: 751923 1 Tablet(s) PO 12/02/2010 09/05/2011 Inactive at H A onset, may repeat i po in 2hrs if CHAUHAN remains lisinopril 20 mg Tab RxNorm: 198556 1 Tablet(s) PO QD 09/10/2010 12/06/2010 Inactive Prevacid 30 mg Cap RxNorm: 134600 1 Capsule(s) PO BID 08/09/2010 02/21/2011 Inactive Flexeril 5 mg Tab RxNorm: 485888 1-2 Tablet(s) PO QHS prn spasm 04/14/2010 04/20/2011 In active Topamax 50 mg Tab RxNorm: 526587 1 Tablet(s) PO BID 02/16/2010 04/13/2010 Inactive Topamax 50 mg Tab RxNorm: 252265 1/2 Tablet(s) PO QHS for 1wk then 1 po Q HS 02/15/2010 02/15/2010 In active Cefdinir 300 mg Cap RxNorm: 943731 1 Capsule(s) PO BID One tablet PO twice daily for 10 days. 02/03/2010 02/12/2010 Inactive Topamax 50 mg Tab RxNorm: 786532 1/2 Tablet(s) PO QHS for 1wk then 1 po Q HS 01/27/2010 02/14/2010 In active Flexeril 5 mg Tab RxNorm: 256552 1 Tablet(s) PO TID prn spasm 01/25/2010 02/15/2010 Inactive Macrobid 100 mg Cap RxNorm: 0412889 1 Capsule(s) PO BID 09/01/2009 09/07/2009 Inactive Prevacid 30 mg Cap RxNorm: 844455 1 Capsule(s) PO BID 09/01/2009 09/30/2009 Inactive Flexeril 5 mg Tab RxNorm: 538712 1 Tablet(s) PO TID prn spasm 09/01/2009 09/30/2009 Inactive lisinopril 20 mg Tab RxNorm: 415476 1 Tablet(s) PO QD 08/31/2009 09/10/2010 Inactive atenolol 25 mg Tab RxNorm: 536859 1 Tablet(s) PO QD No Start Date 07/30/2012 Inactive magnesium 100 mg tablet RxNorm: 1 Tablet(s) PO QD No Start Date Active Calcium with Vitamin D 600 mg-400 unit Tab RxNorm: 110576 1 Tablet(s) PO QD No Start Date Active Aspirin 81 mg Tab RxNorm: 806045 1 Tablet(s) PO QD No Start Date Active Brisdelle 7.5 mg cap violeta RxNorm: 7026910 1 Capsule(s) PO QHS No Start Date 12/09/2015 Inactive Prevacid 30 mg Cap RxNorm: 292191 1 Capsule(s) PO QD No Start Date 02/20/2011 Inactive Ultram 50 mg Tab RxNorm: 609268 2 Tablet(s) PO QID prn headache No Start Date 04/13/2010 Inactive tizanidine 4 mg tablet RxNorm: 153513 1 Tablet(s) PO Q8H as needed for muscle spasm No Start Date 05/09/2017 Inactive nystatin-triamcinolo ne 100,000 unit/g-0.1 % topical cream RxNorm: 3596468 1 Application TOP QHS to rash No Start Date 08/21/2013 Inactive Imitrex 100 mg tablet RxNorm: 650593 1 Tablet(s) PO at CHAUHAN onset-September repeat in 6hours as needed No Start Date 08/03/2015 Inactive Treximet 85 mg-500 m g Tab RxNorm: 391254 1 Tablet(s) PO at CHAUHAN onset, may repeat i po in 2hrs if CHAUHAN remains No Start Date 12/02/2010 Inactive alprazolam 0.25 mg t ablet RxNorm: 362247 1 Tablet(s) PO QPM No Start Date 08/03/2015 Inactive amitriptyline 25 mg Tab RxNorm: 932380 1 Tablet(s) PO QAM No Start Date 12/06/2010 Inactive amitriptyline 10 mg Tab RxNorm: 551769 Tablet(s) PO Take 4 tablets by mouth 1 w igiugig before period and week of period and 3 tablets other 2 weeks of month No Start Date 09/04/2011 Inactive Omnaris 50 mcg Nasal Tyrone RxNorm: 139072 2 [place]one NASAL QD each nostril No Start Date 12/20/2011 Inactive sertraline 25 mg tablet RxNorm: 739299 1 Tablet(s) PO QD No Start Date 08/03/2015 Inactive atenolol 25 mg tablet RxNorm: 483258 1 Tablet(s) PO QD No Start Date 07/21/2013 Inactive hydrochlorothiazide 25 mg tablet RxNorm: 230116 1 Tablet(s) PO QAM No Start Date 05/26/2015 Inactive Maxalt 10 mg tablet RxNorm: 010036 Tablet(s) PO as needed for headache No Start Date 10/04/2015 Inactive atenolol 25 mg Tab RxNorm: 913442 1/2 Tablet(s) PO QD No Start Date 12/20/2011 Inactive Medrol (Camilo) 4 mg ta blets in a dose pack RxNorm: 899563 Tablet(s) PO as direc nico No Start Date 11/11/2012 Inactive Naprosyn 500 mg tablet RxNorm: 353673 1 Tablet(s) PO BID No Start Date 09/04/2014 Inactive promethazine-codeine 6.25 mg-10 mg/5 mL syrup RxNorm: 074132 PO No Start Date 06/29/2014 Inactive Flexeril 5 mg Tab RxNorm: 021995 2 Tablet(s) PO QHS No Start Date 04/13/2010 Inactive Treximet 85 mg-500 m g tablet RxNorm: 121715 Tablet(s) PO PRN No Start Date 07/21/2013 Inactive cyclobenzaprine 5 mg tablet RxNorm: 928552 1-2 Tablet(s) PO QHS No Start Date 03/09/2015 Inactive atenolol 25 mg tablet RxNorm: 162157 1 Tablet(s) PO QD No Start Date 12/25/2016 Inactive lisinopril 20 mg Tab RxNorm: 563250 1 Tablet(s) PO QD No Start Date 10/06/2011 Inactive Topamax 50 mg Tab RxNorm: 636961 1 Tablet(s) PO BID No Start Date 02/15/2010 Inactive Treximet 85 mg-500 m g Tab RxNorm: 737310 Tablet(s) PO Take 1 a t headache onset and may repeat 1 in two hours if needed No Start Date 09/04/2011 Inactive Stool Softener 100 m g Cap RxNorm: 1349779 3 Capsule(s) PO QD No Start Date [...] Item Item Code Result Date COMPREHENSIVE METABOLIC 68961 AST 15 U/L 06/29/2018 COMPREHENSIVE METABOLIC 03422 ALT 15 U/L 06/29/2018 COMPREHENSIVE METABOLIC 70950 BUN 19 mg/dL 06/29/2018 COMPREHENSIVE METABOLIC 75910 ALBUMIN 4.3 g/dL 06/29/2018 COMPREHENSIVE METABOLIC 15726 CHLORIDE 106 mmol/L 06/29/2018 COMPREHENSIVE METABOLIC 84588 Bili Total 0.6 mg/dL 06/29/2018 COMPREHENSIVE METABOLIC 50005 ALK PHOS 82 U/L 06/29/2018 COMPREHENSIVE METABOLIC 25869 SODIUM 141 mmol/L 06/29/2018 COMPREHENSIVE METABOLIC 14918 CREATININE 0.66 mg/dL 06/29/2018 COMPREHENSIVE METABOLIC 59586 CALCIUM 9.6 mg/dL 06/29/2018 COMPREHENSIVE METABOLIC 46835 POTASSIUM 4.3 mmol/L 06/29/2018 COMPREHENSIVE METABOLIC 14524 Total Protein 7.0 g/dL 06/29/2018 COMPREHENSIVE METABOLIC 65953 Glucose 102 mg/dL 06/29/2018 COMPREHENSIVE METABOLIC 58748 Bicarbonate 29 mmol/L 06/29/2018 COMPREHENSIVE METABOLIC 73182 AGAP 6 mmol/L 06/29/2018 FREE T4 56537 T4 Free 1.04 ng/dL 06/29/2018 GFR CALC 5140516 GFR Non Afr Amr >60 mL/min 06/29/2018 GFR CALC 5329058 GFR Afr Amr >60 mL/min 06/29/2018 LIPID GROUP 19595 Choles terol 197 mg/dL 06/29/2018 LIPID GROUP 87548 Trigly ceride 70 mg/dL 06/29/2018 LIPID GROUP 38204 HDL CH OLESTEROL 45 mg/dL 06/29/2018 LIPID GROUP 64917 Chol/H DL Ratio 4.38 ratio 06/29/2018 LIPID GROUP 63169 NON-HD L Chol 152 mg/dL 06/29/2018 LIPID GROUP 91835 LDL Ch olesterol 138 mg/dL 06/29/2018 THYROID STIMULATING HORMONE 48884 TSH 1.477 uIU/mL 9 COMPLETE BLOOD COUNT 4689269 WBC 5.2 10e9/L 06/29/2018 COMPLETE BLOOD COUNT 4131640 RBC 4.93 10e12/L 9 COMPLETE BLOOD COUNT 0268022 HEMOGLOBIN 14.3 g/dL 06/29/2018 COMPLETE BLOOD COUNT 7511498 HEMATOCRIT 42.9 % 06/29/2018 COMPLETE BLOOD COUNT [id number] MCV 87.0 fL 06/29/2018 COMPLETE BLOOD COUNT [id number] MCH 29.0 pg 06/29/2018 COMPLETE BLOOD COUNT 6031952 MCHC 33.3 g/dL 06/29/2018 COMPLETE BLOOD COUNT 0768613 PLATELET COUNT 289 10e9/L 06/29/2018 COMPLETE BLOOD COUNT [id number] Mean Plt Volume 10.6 fL 06/29/2018 COMPLETE BLOOD COUNT [id number] Neut Auto 74.1 % 06/29/2018 COMPLETE BLOOD COUNT 7691871 Lymph Auto 14.7 % 06/29/2018 COMPLETE BLOOD COUNT 2944580 [place] Auto 8.3 % 06/29/2018 COMPLETE BLOOD COUNT 7285964 RDW 13.7 % 06/29/2018 COMPLETE BLOOD COUNT 7129766 Eos Auto 2.7 % 06/29/2018 COMPLETE BLOOD COUNT 5495276 Baso Auto 0.2 % 06/29/2018 COMPLETE BLOOD COUNT 3004642 Neutrophil Abs 3.85 10e9/L 06/29/2018 COMPLETE BLOOD COUNT [id number] Lymphocyte Abs 0.76 10e9/L 06/29/2018 COMPLETE BLOOD COUNT [id number] Monocyte Abs 0.43 10e9/L 06/29/2018 COMPLETE BLOOD COUNT 1600612 Eosinophil Abs 0.14 10e9/L 06/29/2018 COMPLETE BLOOD COUNT 1672608 RDW-SD 42.7 fL 06/29/2018 COMPLETE BLOOD COUNT [id number] Basophil Abs 0.01 10e9/L 06/29/2018 IRON 00392 IRON TEST 42 UG/DL 07/31/2014 FERRITIN 44056 FERRITIN 10 NG/ML 07/31/2014 VITAMIN B 12 FOLIC ACID 59993|84464 VIT B 12 233 PG/ML 07/31/2014 VITAMIN B 12 FOLIC ACID 08813|40676 FOLIC ACID 8.7 NG/ML 5 COMPLETE BLOOD COUNT 8830418 WBC 6.4 10e9/L 07/29/2014 COMPLETE BLOOD COUNT 3237288 RBC 4.36 10e12/L 5 COMPLETE BLOOD COUNT 1881205 HGB 11.5 g/dL 07/29/2014 COMPLETE BLOOD COUNT 1686206 HCT DET 35.3 % 07/29/2014 COMPLETE BLOOD COUNT 1294746 MCV 81.0 fL 07/29/2014 COMPLETE BLOOD COUNT 1021766 MCH 26.4 pg 07/29/2014 COMPLETE BLOOD COUNT 3406033 MCHC 32.6 g/dL 07/29/2014 COMPLETE BLOOD COUNT 9202877 PLT 329 10e9/L 07/29/2014 COMPLETE BLOOD COUNT [id number] MPV 10.4 fL 07/29/2014 COMPLETE BLOOD COUNT [id number] ROLAND % 69.6 % 07/29/2014 COMPLETE BLOOD COUNT 1340538 LY % 21.3 % 07/29/2014 COMPLETE BLOOD COUNT 8358255 MON % 6.8 % 07/29/2014 COMPLETE BLOOD COUNT 0034119 EOS % 2.0 % 07/29/2014 COMPLETE BLOOD COUNT [id number] BASO % 0.3 % 07/29/2014 COMPLETE BLOOD COUNT [id number] RDW 15.9 % 07/29/2014 COMPLETE BLOOD COUNT 2660769 ABS ROLAND 4.45 10e9/L 07/29/2014 COMPLETE BLOOD COUNT [id number] ABS LYMPH 1.36 10e9/L 07/29/2014 COMPLETE BLOOD COUNT 1943682 ABS MONO 0.44 10e9/L 07/29/2014 COMPLETE BLOOD COUNT 9802869 ABS EOS 0.13 10e9/L 07/29/2014 COMPLETE BLOOD COUNT [id number] ABS BASO 0.02 10e9/L 07/29/2014 COMPLETE BLOOD COUNT [id number] RDW-SD 46.1 fL 07/29/2014 LIPID GROUP [address] 41 MG/DL 07/29/2014 LIPID GROUP 02908 TRIG 92 MG/DL 07/29/2014 LIPID GROUP 64364 TEST L DL 118 MG/DL 07/29/2014 LIPID GROUP 33504 CHOL 177 MG/DL 07/29/2014 LIPID GROUP 72504 RCHOL/ HDL 4.32 RATIO 07/29/2014 LIPID GROUP 76151 NON-HD L CH 136 MG/DL 07/29/2014 GFR CALC 9223876 GFR AA >60 ML/MIN 07/29/2014 GFR CALC 5634941 GFR NON -AA >60 ML/MIN 07/29/2014 FREE T4 43875 FREE T4 1.10 NG/DL 07/29/2014 COMPREHENSIVE METABOLIC 30943 AST 13 U/L 07/29/2014 COMPREHENSIVE METABOLIC 18337 ALT 12 IU/L 07/29/2014 COMPREHENSIVE METABOLIC 93867 BUN 16 MG/DL 07/29/2014 COMPREHENSIVE METABOLIC 77693 ALBUMIN 4.1 GM/DL 07/29/2014 COMPREHENSIVE METABOLIC 59687 CHLORIDE 106 MMOL/L 07/29/2014 COMPREHENSIVE METABOLIC 35973 BILI TOT 0.4 MG/DL 07/29/2014 COMPREHENSIVE METABOLIC 62061 ALK PHOS 77 U/L 07/29/2014 COMPREHENSIVE METABOLIC 59768 SODIUM 137 MMOL/L 07/29/2014 COMPREHENSIVE METABOLIC 67775 CREATININE 0.65 MG/DL 07/29/2014 COMPREHENSIVE METABOLIC 45755 CALCIUM 9.0 MG/DL 07/29/2014 COMPREHENSIVE METABOLIC 29762 POTASSIUM 4.0 MMOL/L 07/29/2014 COMPREHENSIVE METABOLIC 34609 PROT TOT 6.3 GM/DL 07/29/2014 COMPREHENSIVE METABOLIC 86662 Glucose 98 MG/DL 07/29/2014 COMPREHENSIVE METABOLIC 47162 BICARB 26 MMOL/L 07/29/2014 COMPREHENSIVE METABOLIC 51676 ANION GAP 5 MEQ/L 07/29/2014 THYROID STIMULATING HORMONE 97241 TSH 1.678 uIU/ML 5 GFR CALC 1403109 GFR AA >60 ML/MIN 02/26/2013 GFR CALC 5681557 GFR NON -AA >60 ML/MIN 02/26/2013 THYROID STIMULATING HORMONE 59832 TSH 1.635 uIU/ML 3 COMPLETE BLOOD COUNT 5234423 WBC 7.8 10e9/L 02/26/2013 COMPLETE BLOOD COUNT 2408476 RBC 4.60 10e12/L 3 COMPLETE BLOOD COUNT 1002191 HGB 12.7 g/dL 02/26/2013 COMPLETE BLOOD COUNT 4979084 HCT DET 38.1 % 02/26/2013 COMPLETE BLOOD COUNT 2122167 MCV 82.8 fL 02/26/2013 COMPLETE BLOOD COUNT 7124496 MCH 27.6 pg 02/26/2013 COMPLETE BLOOD COUNT 5997648 MCHC 33.3 g/dL 02/26/2013 COMPLETE BLOOD COUNT 2736661 PLT 324 10e9/L 02/26/2013 COMPLETE BLOOD COUNT 1769180 MPV 10.2 fL 02/26/2013 COMPLETE BLOOD COUNT 8632144 ROLAND % 72.0 % 02/26/2013 COMPLETE BLOOD COUNT 3814332 LY % 20.1 % 02/26/2013 COMPLETE BLOOD COUNT 8876107 MON % 6.3 % 02/26/2013 COMPLETE BLOOD COUNT 6306904 EOS % 1.3 % 02/26/2013 COMPLETE BLOOD COUNT 9438979 BASO % 0.3 % 02/26/2013 COMPLETE BLOOD COUNT 4776154 RDW 14.4 % 02/26/2013 COMPLETE BLOOD COUNT 8967912 ABS ROLAND 5.62 10e9/L 02/26/2013 COMPLETE BLOOD COUNT 5762309 ABS LYMPH 1.57 10e9/L 02/26/2013 COMPLETE BLOOD COUNT 1907978 ABS MONO 0.49 10e9/L 02/26/2013 COMPLETE BLOOD COUNT 9152618 ABS EOS 0.10 10e9/L 02/26/2013 COMPLETE BLOOD COUNT 4472442 ABS BASO 0.02 10e9/L 02/26/2013 COMPLETE BLOOD COUNT 4993786 RDW-SD 42.8 fL 02/26/2013 COMPREHENSIVE METABOLIC 84718 AST 15 U/L 02/26/2013 COMPREHENSIVE METABOLIC 03507 ALT 14 IU/L 02/26/2013 COMPREHENSIVE METABOLIC 51224 BUN 14 MG/DL 02/26/2013 COMPREHENSIVE METABOLIC 32331 ALBUMIN 4.2 GM/DL 02/26/2013 COMPREHENSIVE METABOLIC 79500 CHLORIDE 104 MMOL/L 02/26/2013 COMPREHENSIVE METABOLIC 90513 BILI TOT 0.6 MG/DL 02/26/2013 COMPREHENSIVE METABOLIC 79444 ALK PHOS 71 U/L 02/26/2013 COMPREHENSIVE METABOLIC 72472 SODIUM 136 MMOL/L 02/26/2013 COMPREHENSIVE METABOLIC 68116 CREATININE 0.62 MG/DL 02/26/2013 COMPREHENSIVE METABOLIC 45851 CALCIUM 9.5 MG/DL 02/26/2013 COMPREHENSIVE METABOLIC 77109 POTASSIUM 4.1 MMOL/L 02/26/2013 COMPREHENSIVE METABOLIC 08019 PROT TOT 6.7 GM/DL 02/26/2013 COMPREHENSIVE METABOLIC 40393 Glucose 92 MG/DL 02/26/2013 COMPREHENSIVE METABOLIC 25941 BICARB 26 MMOL/L 02/26/2013 COMPREHENSIVE METABOLIC 62148 ANION GAP 6 MEQ/L 02/26/2013 LIPID GROUP [address] 45 MG/DL 02/26/2013 LIPID GROUP 64564 TRIG 107 MG/DL 02/26/2013 LIPID GROUP 92265 TEST L DL 129 MG/DL 02/26/2013 LIPID GROUP 82665 CHOL 195 MG/DL 02/26/2013 LIPID GROUP 55447 RCHOL/ HDL 4.33 RATIO 02/26/2013 FREE T4 99108 FREE T4 1.07 NG/DL 02/26/2013 MYCOPLASMA ANTIBODY, IFA [id number] MYCO G IFA 1:128 11/13/2012 MYCOPLASMA ANTIBODY, IFA 48434Q4 MYCO M IFA <1:10 11/13/2012 MYCOPLASMA ANTIBODY, IFA 76085L8 MYCO INTER SEE BELO 11/13/2012 COMPLETE BLOOD COUNT 9099002 WBC 6.0 10e9/L 11/12/2012 COMPLETE BLOOD COUNT 2315626 RBC 4.68 10e12/L 3 COMPLETE BLOOD COUNT 5129665 HGB 12.9 g/dL 11/12/2012 COMPLETE BLOOD COUNT 7918048 HCT DET 38.7 % 11/12/2012 COMPLETE BLOOD COUNT 3021540 MCV 82.7 fL 11/12/2012 COMPLETE BLOOD COUNT 1484734 MCH 27.6 pg 11/12/2012 COMPLETE BLOOD COUNT 0253352 MCHC 33.3 g/dL 11/12/2012 COMPLETE BLOOD COUNT 7957223 PLT 297 10e9/L 11/12/2012 COMPLETE BLOOD COUNT 7507563 MPV 11.1 fL 11/12/2012 COMPLETE BLOOD COUNT 0981949 ROLAND % 63.8 % 11/12/2012 COMPLETE BLOOD COUNT 8312294 LY % 28.2 % 11/12/2012 COMPLETE BLOOD COUNT 8131061 MON % 6.6 % 11/12/2012 COMPLETE BLOOD COUNT 4544389 EOS % 1.2 % 11/12/2012 COMPLETE BLOOD COUNT 8085539 BASO % 0.2 % 11/12/2012 COMPLETE BLOOD COUNT 6685214 RDW 14.9 % 11/12/2012 COMPLETE BLOOD COUNT 9532029 ABS ROLAND 3.83 10e9/L 11/12/2012 COMPLETE BLOOD COUNT 7850294 ABS LYMPH 1.69 10e9/L 11/12/2012 COMPLETE BLOOD COUNT 3291754 ABS MONO 0.40 10e9/L 11/12/2012 COMPLETE BLOOD COUNT 8956913 ABS EOS 0.07 10e9/L 11/12/2012 COMPLETE BLOOD COUNT 6283909 ABS BASO 0.01 10e9/L 11/12/2012 COMPLETE BLOOD COUNT 7911068 RDW-SD 44.8 fL 11/12/2012 HEMOGLOBIN A1C (GLYCOSYLATED) 9896345 A1C HPLC 56477-3 5.1 % 06/06/2012 RA FACTOR 63686 RA FACTOR <20.0 IU/ML 06/06/2012 ANTINUCLEAR ANTIBODY SCREEN 31181 FERDINAND SCR <1:80 06/06/2012 INSULIN SERUM 97066 INSU PETER 12.2 mU/L 06/06/2012 COMPREHENSIVE METABOLIC 94766 AST 13 U/L 06/05/2012 COMPREHENSIVE METABOLIC 04506 ALT 13 IU/L 06/05/2012 COMPREHENSIVE METABOLIC 87117 BUN 21 MG/DL 06/05/2012 COMPREHENSIVE METABOLIC 15591 ALBUMIN 4.7 GM/DL 06/05/2012 COMPREHENSIVE METABOLIC 85614 CHLORIDE 106 MMOL/L 06/05/2012 COMPREHENSIVE METABOLIC 81222 BILI TOT 0.6 MG/DL 06/05/2012 COMPREHENSIVE METABOLIC 66986 ALK PHOS 61 U/L 06/05/2012 COMPREHENSIVE METABOLIC 10351 SODIUM 139 MMOL/L 06/05/2012 COMPREHENSIVE METABOLIC 74715 CREATININE 0.71 MG/DL 06/05/2012 COMPREHENSIVE METABOLIC 56349 CALCIUM 9.8 MG/DL 06/05/2012 COMPREHENSIVE METABOLIC 05899 POTASSIUM 4.6 MMOL/L 06/05/2012 COMPREHENSIVE METABOLIC 15364 PROT TOT 6.7 GM/DL 06/05/2012 COMPREHENSIVE METABOLIC 80064 Glucose 104 MG/DL 06/05/2012 COMPREHENSIVE METABOLIC 21278 BICARB 24 MMOL/L 06/05/2012 COMPREHENSIVE METABOLIC 19219 ANION GAP 9 MEQ/L 06/05/2012 GFR CALC 3284043 GFR AA >60 ML/MIN 06/05/2012 GFR CALC 9731198 GFR NON -AA >60 ML/MIN 06/05/2012 LIPID GROUP [address] 46 MG/DL 06/05/2012 LIPID GROUP 39119 TRIG 77 MG/DL 06/05/2012 LIPID GROUP 79640 TEST L DL 135 MG/DL 06/05/2012 LIPID GROUP 11123 CHOL 196 MG/DL 06/05/2012 LIPID GROUP 16044 RCHOL/ HDL 4.26 RATIO 06/05/2012 COMPLETE BLOOD COUNT 9511723 WBC 5.9 10e9/L 06/05/2012 COMPLETE BLOOD COUNT 7789748 RBC 5.02 10e12/L 3 COMPLETE BLOOD COUNT 9404652 HGB 13.9 g/dL 06/05/2012 COMPLETE BLOOD COUNT 7731360 HCT DET 41.5 % 06/05/2012 COMPLETE BLOOD COUNT 9257893 MCV 82.7 fL 06/05/2012 COMPLETE BLOOD COUNT 2209101 MCH 27.7 pg 06/05/2012 COMPLETE BLOOD COUNT 4443972 MCHC 33.5 g/dL 06/05/2012 COMPLETE BLOOD COUNT 4766347 PLT 323 10e9/L 06/05/2012 COMPLETE BLOOD COUNT 4043477 MPV 11.3 fL 06/05/2012 COMPLETE BLOOD COUNT 2784849 ROLAND % 70.6 % 06/05/2012 COMPLETE BLOOD COUNT 1200967 LY % 21.4 % 06/05/2012 COMPLETE BLOOD COUNT 1400386 MON % 6.4 % 06/05/2012 COMPLETE BLOOD COUNT 0105123 EOS % 1.3 % 06/05/2012 COMPLETE BLOOD COUNT 2462980 BASO % 0.3 % 06/05/2012 COMPLETE BLOOD COUNT 9703316 RDW 14.9 % 06/05/2012 COMPLETE BLOOD COUNT 8945053 ABS ROLAND 4.17 10e9/L 06/05/2012 COMPLETE BLOOD COUNT 4424838 ABS LYMPH 1.26 10e9/L 06/05/2012 COMPLETE BLOOD COUNT 5911488 ABS MONO 0.38 10e9/L 06/05/2012 COMPLETE BLOOD COUNT 6841923 ABS EOS 0.08 10e9/L 06/05/2012 COMPLETE BLOOD COUNT 7637509 ABS BASO 0.02 10e9/L 06/05/2012 COMPLETE BLOOD COUNT 0532700 RDW-SD 44.8 fL 06/05/2012 THYROID STIMULATING HORMONE 77182 TSH 1.684 uIU/ML 3 FREE T4 80919 FREE T4 1.19 NG/DL 06/05/2012 BASIC METABOLIC PANEL 71477 Glucose 100 MG/DL 04/13/2011 BASIC METABOLIC PANEL 13315 CREATININE 0.66 MG/DL 04/13/2011 BASIC METABOLIC PANEL 70878 BUN 18 MG/DL 04/13/2011 BASIC METABOLIC PANEL 93684 SODIUM 138 MMOL/L 04/13/2011 BASIC METABOLIC PANEL 31384 BICARB 26 MMOL/L 04/13/2011 BASIC METABOLIC PANEL 34685 POTASSIUM 4.0 MMOL/L 04/13/2011 BASIC METABOLIC PANEL 24697 ANION GAP 9 MEQ/L 04/13/2011 BASIC METABOLIC PANEL 06333 CHLORIDE 103 MMOL/L 04/13/2011 BASIC METABOLIC PANEL 70303 CALCIUM 9.6 MG/DL 04/13/2011 FSH 1124631 FSH 4.6 MIU/ML 04/13/2011 GFR CALC 7969493 GFR AA >60 ML/MIN 04/13/2011 GFR CALC 0117243 GFR NON -AA >60 ML/MIN 04/13/2011 ESTRADIOL SERUM 13725 ES TRADIOL 113 PG/ML 04/13/2011 LH 63529 LH 3.7 MIU/ML 04/13/2011 THYROID STIMULATING HORMONE 00562 TSH 1.995 uIU/ML 1 LIPID GROUP [address] 40 MG/DL 12/21/2010 LIPID GROUP 11402 TRIG 66 MG/DL 12/21/2010 LIPID GROUP 66441 TEST L DL 132 MG/DL 12/21/2010 LIPID GROUP 19337 CHOL 185 MG/DL 12/21/2010 LIPID GROUP 45955 RCHOL/ HDL 4.63 RATIO 12/21/2010 THYROID STIMULATING HORMONE 66092 TSH 1.876 uIU/ML 1 COMPLETE BLOOD COUNT 48738 WBC 7.0 10e9/L 12/21/2010 COMPLETE BLOOD COUNT 92096 RBC 4.28 10e12/L 1 COMPLETE BLOOD COUNT 58995 HGB 12.1 g/dL 12/21/2010 COMPLETE BLOOD COUNT 97635 HCT DET 36.1 % 12/21/2010 COMPLETE BLOOD COUNT 29341 MCV 84.3 fL 12/21/2010 COMPLETE BLOOD COUNT 95610 MCH 28.3 pg 12/21/2010 COMPLETE BLOOD COUNT 89969 MCHC 33.5 g/dL 12/21/2010 COMPLETE BLOOD COUNT 86269 PLT 306 10e9/L 12/21/2010 COMPLETE BLOOD COUNT 82873 MPV 10.4 fL 12/21/2010 COMPLETE BLOOD COUNT 29752 ROLAND % 69.9 % 12/21/2010 COMPLETE BLOOD COUNT 10190 LY % 22.2 % 12/21/2010 COMPLETE BLOOD COUNT 46727 MON % 5.7 % 12/21/2010 COMPLETE BLOOD COUNT 20335 EOS % 1.9 % 12/21/2010 COMPLETE BLOOD COUNT 25481 BASO % 0.3 % 12/21/2010 COMPLETE BLOOD COUNT 05859 RDW 14.0 % 12/21/2010 COMPLETE BLOOD COUNT 75114 ABS ROLAND 4.89 10e9/L 12/21/2010 COMPLETE BLOOD COUNT 47830 ABS LYMPH 1.55 10e9/L 12/21/2010 COMPLETE BLOOD COUNT 26719 ABS MONO 0.40 10e9/L 12/21/2010 COMPLETE BLOOD COUNT 85051 ABS EOS 0.13 10e9/L 12/21/2010 COMPLETE BLOOD COUNT 37369 ABS BASO 0.02 10e9/L 12/21/2010 COMPLETE BLOOD COUNT 75557 RDW-SD 41.5 fL 12/21/2010 FREE T4 96043 FREE T4 1.02 NG/DL 12/21/2010 COMPREHENSIVE METABOLIC 80504 AST 11 U/L 12/21/2010 COMPREHENSIVE METABOLIC 05398 ALT 9 IU/L 12/21/2010 COMPREHENSIVE METABOLIC 02146 BUN 16 MG/DL 12/21/2010 COMPREHENSIVE METABOLIC 09582 ALBUMIN 4.0 GM/DL 12/21/2010 COMPREHENSIVE METABOLIC 29546 CHLORIDE 106 MMOL/L 12/21/2010 COMPREHENSIVE METABOLIC 12849 BILI TOT 0.3 MG/DL 12/21/2010 COMPREHENSIVE METABOLIC 10777 ALK PHOS 59 U/L 12/21/2010 COMPREHENSIVE METABOLIC 87126 SODIUM 139 MMOL/L 12/21/2010 COMPREHENSIVE METABOLIC 12349 CREATININE 0.66 MG/DL 12/21/2010 COMPREHENSIVE METABOLIC 06246 CALCIUM 8.9 MG/DL 12/21/2010 COMPREHENSIVE METABOLIC 44734 POTASSIUM 4.2 MMOL/L 12/21/2010 COMPREHENSIVE METABOLIC 37083 PROT TOT 6.5 GM/DL 12/21/2010 COMPREHENSIVE METABOLIC 72052 Glucose 101 MG/DL 12/21/2010 COMPREHENSIVE METABOLIC 61717 BICARB 28 MMOL/L 12/21/2010 COMPREHENSIVE METABOLIC 48643 ANION GAP 5 MEQ/L 12/21/2010 GFR CALC 7918332 GFR AA >60 ML/MIN 12/21/2010 GFR CALC 9991461 GFR NON -AA >60 ML/MIN 12/21/2010 LIPID GROUP [address] 40 MG/DL 12/10/2009 LIPID GROUP 70190 TRIG 98 MG/DL 12/10/2009 LIPID GROUP 02499 TEST L DL 128 MG/DL 12/10/2009 LIPID GROUP 18520 CHOL 188 MG/DL 12/10/2009 LIPID GROUP 95328 RCHOL/ HDL 4.70 RATIO 12/10/2009 DF 5777633 POLY 74 % 12/09/2009 DF 1238914 BAND 0 % 12/09/2009 DF 9367488 LYMP 21 % 12/09/2009 DF 4881872 MONO 3 % 12/09/2009 DF 9101647 EOS 2 % 12/09/2009 DF 3369343 BASO 0 % 12/09/2009 GFR CALC 1752083 GFR AA >60 ML/MIN 12/09/2009 GFR CALC 1915646 GFR NON -AA >60 ML/MIN 12/09/[address] 1660884 WBC 8.7 10e9/L 12/09/[address] 0395392 RBC 4.78 10e12/L 12/09/[address] 2557885 HGB 13.2 g/dL 12/09/[address] 1837461 HCT DET 40.2 % 12/09/[address] 4528869 MCV 84.1 fL 12/09/[address] 5045110 MCH 27.6 pg 12/09/[address] 7280091 MCHC 32.8 g/dL 12/09/[address] 5729333 PLT 374 10e9/L 12/09/[address] 2348063 MPV 11.0 fL 12/09/[address] 8488[address] ROLAND % 70.2 % 12/09/[address]60[address] RDW 14.4 % 12/09/[address] 8459436 LY % 22.4 % 12/09/[address] 3241611 RDW-SD 44.7 fL 12/09/[address] 9658419 MON % 6.2 % 12/09/[address] 5878341 EOS % 1.0 % 12/09/[address] 7197293 BASO % 0.2 % 12/09/[address] 8775752 ABS ROLAND 6.08 10e9/L 12/09/[address] 5371074 ABS LY MPH 1.94 10e9/L 12/09/[address] 5669614 ABS MO NO 0.54 10e9/L 12/09/[address] 2762087 ABS EOS 0.09 10e9/L 12/09/[address] 6481617 ABS BA SO 0.02 10e9/L 12/09/2009 THYROID STIMULATING HORMONE 08863 TSH 1.916 uIU/ML 0 COMPREHENSIVE METABOLIC 17403 AST 13 U/L 12/09/2009 COMPREHENSIVE METABOLIC 39937 ALT 13 IU/L 12/09/2009 COMPREHENSIVE METABOLIC 22930 BUN 18 MG/DL 12/09/2009 COMPREHENSIVE METABOLIC 23020 ALBUMIN 4.3 GM/DL 12/09/2009 COMPREHENSIVE METABOLIC 96849 CHLORIDE 106 MMOL/L 12/09/2009 COMPREHENSIVE METABOLIC 73902 BILI TOT 0.5 MG/DL 12/09/2009 COMPREHENSIVE METABOLIC 02375 ALK PHOS 69 U/L 12/09/2009 COMPREHENSIVE METABOLIC 57915 SODIUM 137 MMOL/L 12/09/2009 COMPREHENSIVE METABOLIC 43371 CREATININE 0.69 MG/DL 12/09/2009 COMPREHENSIVE METABOLIC 55773 CALCIUM 9.1 MG/DL 12/09/2009 COMPREHENSIVE METABOLIC 26682 POTASSIUM 4.5 MMOL/L 12/09/2009 COMPREHENSIVE METABOLIC 83919 PROT TOT 6.9 GM/DL 12/09/2009 COMPREHENSIVE METABOLIC 51872 Glucose 97 MG/DL 12/09/2009 COMPREHENSIVE METABOLIC 11724 BICARB 20 MMOL/L 12/09/2009 COMPREHENSIVE METABOLIC 16861 ANION GAP 11 MEQ/L 12/09/2009 Review of [...] Procedures Procedure Codes Date ROUTINE VENIPUNCTURE CPT-4: 71765 06/29/2018 ASSAY OF FREE THYROXINE CPT-4: 78603 06/29/2018 ASSAY THYROID STIM H ORMONE CPT-4: 13781 06/29/2018 COMPREHEN METABOLIC PANEL CPT-4: 15535 06/29/2018 COMPLETE CBC W/AUTO DIFF WBC CPT-4: 73013 06/29/2018 LIPID PANEL CPT-4: 83632 06/29/2018 TDAP VACCINE 7 YRS/> IM CPT-4: 37636 06/11/2018 IMMUNIZATION ADMIN CPT- 4: 39061 06/11/2018 ROUTINE VENIPUNCTURE CPT-4: 50267 04/05/2017 ASSAY THYROID STIM H ORMONE CPT-4: 41485 04/05/2017 COMPREHEN METABOLIC PANEL CPT-4: 52451 04/05/2017 COMPLETE CBC W/AUTO DIFF WBC CPT-4: 20335 04/05/2017 LIPID PANEL CPT-4: 49555 04/05/2017 ASSAY OF BLOOD/URIC ACID CPT-4: 42605 04/05/2017 THER/PROPH/DIAG INJ SC/IM CPT-4: 39449 02/12/2016 TRIAMCINOLONE ACET I [place] NOS CPT-4: J3301 02/12/2016 DEXAMETHASONE SODIUM PHOS CPT-4: J1100 02/12/2016 PRESCRIP TRANSMIT A ERX SY CPT-4: G8553 10/01/2015 URINALYSIS NONAUTO W /O SCOPE CPT-4: 05233 10/01/2015 URINE CULTURE/ COLON Y COUNT CPT-4: 30734 10/01/2015 OCCULT BLOOD FECES CPT- 4: 33894 08/04/2015 [facility] C[facility]-4: 23845 08/04/2015 URINALYSIS NONAUTO W /O SCOPE CPT-4: 90984 05/27/2015 URINE CULTURE/ COLON Y COUNT CPT-4: 70987 05/27/2015 THER/PROPH/DIAG INJ SC/IM CPT-4: 09027 03/10/2015 KETOROLAC TROMETHAMI NE INJ CPT-4: J1885 03/10/2015 ROUTINE VENIPUNCTURE CPT-4: 40084 07/29/2014 ASSAY OF FREE THYROXINE CPT-4: 24019 07/29/2014 ASSAY THYROID STIM H ORMONE CPT-4: 00256 07/29/2014 COMPREHEN METABOLIC PANEL CPT-4: 19992 07/29/2014 COMPLETE CBC W/AUTO DIFF WBC CPT-4: 89253 07/29/2014 LIPID PANEL CPT-4: 42264 07/29/2014 ASSAY OF IRON CPT-4: 47540 07/29/2014 ASSAY OF FERRITIN CPT-4: 13332 07/29/2014 VITAMIN B 12 FOLIC ACID CPT-4: 87085|05338 07/29/2014 URINALYSIS NONAUTO W /O SCOPE CPT-4: 75221 05/31/2013 URINE CULTURE/ COLON Y COUNT CPT-4: 20605 05/31/2013 INFLUENZA ASSAY W/OPTIC CPT-4: 89502 05/27/2013 THER/PROPH/DIAG INJ SC/IM CPT-4: 84069 05/27/2013 METHYLPREDNISOLONE 4 0 MG INJ CPT-4: J1030 05/27/2013 TRIAMCINOLONE ACET I [place] NOS CPT-4: J3301 05/27/2013 ROUTINE VENIPUNCTURE CPT-4: 82131 02/26/2013 ASSAY OF FREE THYROXINE CPT-4: 76315 02/26/2013 ASSAY THYROID STIM H ORMONE CPT-4: 17757 02/26/2013 COMPREHEN METABOLIC PANEL CPT-4: 36920 02/26/2013 COMPLETE CBC W/AUTO DIFF WBC CPT-4: 69552 02/26/2013 LIPID PANEL CPT-4: 61068 02/26/2013 ROUTINE VENIPUNCTURE CPT-4: 75602 11/12/2012 COMPLETE CBC W/AUTO DIFF WBC CPT-4: 78255 11/12/2012 MYCOPLASMA ANTIBODY, IFA CPT-4: 92075T2 11/12/2012 ROUTINE VENIPUNCTURE CPT-4: 70659 06/05/2012 ASSAY OF FREE THYROXINE CPT-4: 62435 06/05/2012 ASSAY THYROID STIM H ORMONE CPT-4: 65055 06/05/2012 COMPREHEN METABOLIC PANEL CPT-4: 50497 06/05/2012 COMPLETE CBC W/AUTO DIFF WBC CPT-4: 04063 06/05/2012 LIPID PANEL CPT-4: 21078 06/05/2012 ANTINUCLEAR ANTIBODIES CPT-4: 10858 06/05/2012 RHEUMATOID FACTOR QUANT CPT-4: 33197 06/05/2012 ASSAY OF INSULIN CPT-4: 61205 06/05/2012 A1C GLYCOSYLATED HEM OGLOBIN TEST CPT-4: 78577 06/05/2012 SPECIMEN HANDLING OF [facility]-LAB CPT-4: 27368 12/21/2011 ROUTINE VENIPUNCTURE CPT-4: 01920 04/13/2011 ASSAY THYROID STIM H ORMONE CPT-4: 69275 04/13/2011 METABOLIC PANEL TOTA L CA CPT-4: 43184 04/13/2011 FSH CPT-4: 4867739 04/13/2011 LH CPT-4: 19428 04/13/2011 ASSAY OF ESTRADIOL CPT- 4: 89089 04/13/2011 URINALYSIS NONAUTO W /O SCOPE CPT-4: 31998 02/04/2011 URINE CULTURE/ COLON Y COUNT CPT-4: 71689 02/04/2011 ROUTINE VENIPUNCTURE CPT-4: 63860 12/21/2010 ASSAY OF FREE THYROXINE CPT-4: 16663 12/21/2010 ASSAY THYROID STIM H ORMONE CPT-4: 82363 12/21/2010 COMPLETE CBC W/AUTO DIFF WBC CPT-4: 25411 12/21/2010 COMPREHEN METABOLIC PANEL CPT-4: 73334 12/21/2010 LIPID PANEL CPT-4: 65975 12/21/2010 OCCULT BLOOD FECES CPT- 4: 04978 12/06/2010 ROUTINE VENIPUNCTURE CPT-4: 65899 12/09/2009 CBC WITH MANUAL DIFF ERENTIAL CPT-4: 06539|05778 12/09/2009 COMPREHEN METABOLIC PANEL CPT-4: 08155 12/09/2009 LIPID PANEL CPT-4: 87137 12/09/2009 ASSAY THYROID STIM H ORMONE CPT-4: 76430 12/09/2009 SPECIMEN HANDLING OF [facility]-LAB CPT-4: 48380 12/08/2009 THER/PROPH/DIAG INJ SC/IM CPT-4: 08494 09/01/2009 KETOROLAC TROMETHAMI NE INJ CPT-4: J1885 09/01/2009 URINALYSIS NONAUTO W /O SCOPE CPT-4: 95292 08/26/2009 Vital Signs Date Vital 01/15/2019 Blood [...] 1: 106/68 Code: 8480-6 BMI: 36.2 Code: 50062-8 Heart Rate 1: 72 bpm Height: 5'2" Respiratory Rate: 20 bpm SpO2: 97% Temperature: 37.1 (C ) / 98.8 (F) Weight: 198 lbs 04/05/2017 Blood Pressure 1: 114/78 Code: 8480-6 BMI: 35.5 Code: 44042-9 Heart Rate 1: 68 bpm Height: 5'2" Respiratory Rate: 20 bpm SpO2: 96% Temperature: 36.9 (C ) / 98.5 (F) Weight: 194 lbs 02/12/2016 Blood Pressure 1: 126/78 Code: 8480-6 BMI: 31.8 Code: 61057-0 Heart Rate 1: 60 bpm Height: 5'2" Respiratory Rate: 24 bpm SpO2: 96% Temperature: 36.2 (C ) / 97.1 (F) Weight: 174 lbs 01/25/2016 Blood Pressure 1: 128/78 Code: 8480-6 BMI: 31.6 Code: 95158-7 Heart Rate 1: 76 bpm Height: 5'2" Respiratory Rate: 20 bpm SpO2: 98% Temperature: 36.5 (C ) / 97.7 (F) Weight: 173 lbs 10/01/2015 Blood Pressure 1: 108/58 Code: 8480-6 BMI: 32.9 Code: 60679-2 Heart Rate 1: 62 bpm Height: 5'2" Respiratory Rate: 20 bpm SpO2: 98% Temperature: 36.2 (C ) / 97.1 (F) Weight: 180 lbs 08/04/2015 Blood Pressure 1: 126/78 Code: 8480-6 BMI: 33.8 Code: 73774-7 Heart Rate 1: 72 bpm Height: 5'2" Respiratory Rate: 20 bpm Temperature: 36.9 (C ) / 98.5 (F) Weight: 185 lbs 05/27/2015 Blood Pressure 1: 132/80 Code: 8480-6 BMI: 36.2 Code: 43894-1 Heart Rate 1: 56 bpm Height: 5'2" Respiratory Rate: 20 bpm Temperature: 37.0 (C ) / 98.6 (F) Weight: 198 lbs 03/10/2015 Blood Pressure 1: 136/82 Code: 8480-6 BMI: 36.2 Code: 95401-3 Heart Rate 1: 88 bpm Height: 5'2" Respiratory Rate: 20 bpm Temperature: 37.0 (C ) / 98.6 (F) Weight: 198 lbs 06/30/2014 Blood Pressure 1: 124/78 Code: 8480-6 BMI: 35.8 Code: 03324-3 Heart Rate 1: 84 bpm Height: 5'2" Respiratory Rate: 20 bpm Temperature: 36.8 (C ) / 98.2 (F) Weight: 196 lbs 08/12/2013 Blood Pressure 1: 114/72 Code: 8480-6 BMI: 35.8 Code: 58133-1 Heart Rate 1: 80 bpm Height: 5'2" [...] 1: 132/86 Code: 8480-6 BMI: 34.9 Code: 36404-6 Heart Rate 1: 72 bpm Height: 5'2" Respiratory Rate: 20 bpm Temperature: 36.9 (C ) / 98.4 (F) Weight: 191 lbs 11/29/2012 Blood Pressure 1: 126/82 Code: 8480-6 BMI: 34.4 Code: 09202-3 Heart Rate 1: 84 bpm Height: 5'2" Respiratory Rate: 20 bpm Temperature: 36.7 (C ) / 98.0 (F) Weight: 188 lbs 11/12/2012 Blood Pressure 1: 110/62 Code: 8480-6 BMI: 34.8 Code: 97156-6 Heart Rate 1: 64 bpm Height: 5'2" Temperature: 36.7 (C ) / 98.1 (F) Weight: 190 lbs 07/30/2012 Blood Pressure 1: 124/82 Code: 8480-6 BMI: 36.0 Code: 01465-1 Heart Rate 1: 84 bpm Height: 5'2" Respiratory Rate: 20 bpm Temperature: 36.5 (C ) / 97.7 (F) Weight: 197 lbs 06/04/2012 Blood Pressure 1: 118/70 Code: 8480-6 BMI: 36.2 Code: 68594-3 Heart Rate 1: 64 bpm Height: 5'2" Temperature: 37.1 (C ) / 98.7 (F) Weight: 198 lbs 12/21/2011 Blood Pressure 1: 132/80 Code: 8480-6 BMI: 33.3 Code: 82871-8 Heart Rate 1: 64 bpm Height: 5'2" Respiratory Rate: 20 bpm Temperature: 36.6 (C ) / 97.8 (F) Weight: 182 lbs 10/07/2011 Blood Pressure 1: 128/72 Code: 8480-6 BMI: 34.4 Code: 48402-0 Heart Rate 1: 80 bpm Height: 5'2" Respiratory Rate: 20 bpm Temperature: 36.8 (C ) / 98.2 (F) Weight: 188 lbs 09/05/2011 Blood Pressure 1: 106/72 Code: 8480-6 BMI: 33.3 Code: 48851-9 Heart Rate 1: 76 bpm Height: 5'2" Respiratory Rate: 20 bpm Temperature: 36.6 (C ) / 97.9 (F) Weight: 182 lbs 04/28/2011 Blood Pressure 1: 110/70 Code: 8480-6 BMI: 34.4 Code: 97717-6 Heart Rate 1: 60 bpm Height: 5'2" Temperature: 37.0 (C ) / 98.6 (F) Weight: 188 lbs 04/13/2011 Blood Pressure 1: 106/84 Code: 8480-6 BMI: 34.4 Code: 25470-3 Heart Rate 1: 80 bpm Height: 5'2" Respiratory Rate: 20 bpm Temperature: 36.6 (C ) / 97.8 (F) Weight: 188 lbs 02/04/2011 Blood Pressure 1: 108/76 Code: 8480-6 BMI: 33.7 Code: 57345-7 Heart Rate 1: 74 bpm Height: 5'2" Weight: 184 lbs 12/06/2010 Blood Pressure 1: 120/72 Code: 8480-6 BMI: 33.3 Code: 91156-1 Heart Rate 1: 76 bpm Height: 5'2" [...] 1: 118/66 Code: 8480-6 BMI: 32.6 Code: 97827-4 Heart Rate 1: 68 bpm Height: 5'2" Temperature: 36.7 (C ) / 98.1 (F) Weight: 178 lbs 09/01/2009 Blood Pressure 1: 118/76 Code: 8480-6 BMI: 34.6 Code: 49491-8 Heart Rate 1: 76 bpm Height: 5'2" [...] norvasc as well apneic events Quality ac [place] 04/14/2010 just had sleep study whic h [...] Encounters Encounter Performer Loca tion Codes Date ([id number]) OFFICE/OUTPA TIENT VISIT EST Diagnosis: Essential (primary) hypertension[ICD10: I10] Diagnosis: Encounter for therapeutic drug level monitoring[ICD10: Z51.81] Silvia ANDERS DO [facility] CPT-4: 38525 01/15/2019 ([id number]) OFFICE/OUTPA TIENT VISIT EST Diagnosis: Acute bronchitis, unspecified[ICD10: J20.9] Diagnosis: Acute recurrent maxillary sinusitis[ICD10: J01.01] Nicol ANDERS DO [employer] CPT-4: 25646 07/20/2018 ([id number]) NURSE/OUTPAT IENT VISIT EST Diagnosis: Encounter for general adult medical examination without abnormal findings[ICD10: Z00.00] Diagnosis: Mixed hyperlipidemia[ICD10: E78.2] Caren CEE [employer] CPT-4: 05609 06/29/2018 ([id number]) PREV VISIT E ST AGE 40-64 Diagnosis: Encounter for general adult medical examination without abnormal findings[ICD10: Z00.00] Diagnosis: Encounter for screening mammogram for malignant neoplasm of breast[ICD10: Z12.31] Diagnosis: Essential (primary) hypertension[ICD10: I10] Diagnosis: Migraine with aura, not intractable, without status migrainosus[ICD10: G43.109] Diagnosis: VACCINE FOR TDAP[ICD10: Z23] Caren ANDERS [employer] CPT-4: 97307 06/11/2018 ([id number]) PREV VISIT E AGE 40-64 Diagnosis: Encounter [...] Pain in unspecified joint[ICD10: M25.50] Caren CEE [employer] CPT-4: 74756 04/05/2017 ([id number]) OFFICE/OUTPA TIENT VISIT EST Diagnosis: Acute upper respiratory infection, unspecified[ICD10: J06.9] Diagnosis: Acute maxillary sinusitis, unspecified[ICD10: J01.00] Chiara ANDERS [employer] CPT-4: 80486 02/12/2016 ([id number]) OFFICE/OUTPA TIENT VISIT EST Diagnosis: Acute upper respiratory infection, unspecified[ICD10: J06.9] Diagnosis: Acute maxillary sinusitis, unspecified[ICD10: J01.00] Chiara ANDERS [employer] [facility] CPT-4: 20325 01/25/2016 ([id number]) OFFICE/OUTPA TIENT VISIT EST Diagnosis: Urinary tract infection, site not specified[ICD10: N39.0] Chiara ANDERS [employer] CPT-4: 56696 10/01/2015 ([id number]) PREV VISIT E ST AGE 40-64 Diagnosis: Encounter for gynecological examination (general) (routine) without abnormal findings[ICD10: Z01.419] Diagnosis: Encounter for general adult medical examination without abnormal findings[ICD10: Z00.00] Diagnosis: Migraine, unspecified, not intractable, without status migrainosus[ICD10: G43.909] Diagnosis: Essential (primary) hypertension[ICD10: I10] Caren CEE [employer] CPT-4: 07886 08/04/2015 ([id number]) OFFICE/OUTPA TIENT VISIT EST Diagnosis: Menopausal and female climacteric states[ICD10: N95.1] Diagnosis: Dysuria[ICD10: R30.0] Caren ANDERS [employer] CPT-4: 60458 05/27/2015 OFFICE/OUTPATIENT SIT EST Diagnosis: Persistent migraine 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 cerebral infarction, intractable, with status migrainosus[ICD10: G43.511] Diagnosis: Unspecified convulsions[ICD10: R56.9] Caren CEE [employer] CPT-4: 01997 03/10/2015 ([id number]) OFFICE/OUTPA TIENT VISIT EST Diagnosis: HYPERLIPIDEMIA NEC/NOS[ICD9: 272.4] Diagnosis: HYPERTENSION[ICD9: 401.9] Diagnosis: MALAISE AND FATIGUE[ICD9: 780.79] Diagnosis: ANEMIA NOS[ICD9: 285.9] Caren ANDERS [facility] CPT-4: 03635 07/29/2014 ([id number]) PREV VISIT E ST AGE 40-64 Diagnosis: ROUTINE MEDICAL EXAM[ICD9: V70.0] Diagnosis: HYPERTENSION[ICD9: 401.9] Diagnosis: MIGRAINE NOS/NOT INTRCBL[ICD9: 346.90] Diagnosis: GERD[ICD9: 530.81] Caren ANDERS [facility] CPT-4: 51226 06/30/2014 ([id number]) OFFICE/OUTPA TIENT VISIT EST Diagnosis: ALLERGIC RHINITIS[ICD9: 477.9] Diagnosis: DERMATITIS NOS[ICD9: 692.9] Caren ANDERS [facility] CPT-4: 18410 08/12/2013 OFFICE/OUTPATIENT SIT EST Diagnosis: HEMATURIA NOS[ICD9: 599.70] Diagnosis: COUGH[ICD9: 786.2] Diagnosis: BRONCHITIS, ACUTE[ICD9: 466.0] Diagnosis: URINARY TRACT INFECTION[ICD9: 599.0] Lyndsey Clay [facility] CPT-4: 56302 05/31/2013 OFFICE/OUTPATIENT SIT EST Diagnosis: COUGH[ICD9: 786.2] Diagnosis: SINUSITIS, ACUTE[ICD9: 461.9] Diagnosis: FEBRILE ILLNESS[ICD9: 780.60] Lyndsey [facility] CPT-4: 65932 05/27/2013 ([id number]) OFFICE/OUTPA TIENT VISIT EST Diagnosis: DERMATITIS NOS[ICD9: 692.9] Diagnosis: Tinea cruris[ICD9: 110.3] Caren [facility] CPT-4: 16295 02/26/2013 OFFICE/OUTPATIENT SIT EST Diagnosis: Rash[ICD9: 782.1] Anni Brennan [facility]EN [employer] CPT-4: 02395 11/29/2012 OFFICE/OUTPATIENT SIT EST Diagnosis: COUGH[ICD9: 786.2] Diagnosis: SINUSITIS, ACUTE[ICD9: 461.9] Diagnosis: PHARYNGITIS, ACUTE[ICD9: 462] Caren ANDERS [facility] CPT-4: 65594 11/12/2012 OFFICE/OUTPATIENT SIT EST Diagnosis: COUGH[ICD9: 786.2] Diagnosis: SINUSITIS, ACUTE[ICD9: 461.9] Diagnosis: Myalgia[ICD9: 729.1] Caren ANDERS DO [facility] CPT-4: 21746 07/30/2012 ([id number]) OFFICE/OUTPA TIENT VISIT EST Diagnosis: JOINT PAIN-UNSPEC[ICD9: 719.40] Diagnosis: Rash and nonspecific skin eruption[ICD9: 782.1] Caren CEE [facility] CPT-4: 23572 06/05/2012 OFFICE/OUTPATIENT SIT EST Diagnosis: Rash[ICD9: 782.1] Diagnosis: Joint pain[ICD9: 719.40] Caren ANDERS [facility] CPT-4: 74478 06/04/2012 ([id number]) PREV VISIT E ST AGE 40-64 Diagnosis: ROUTINE GYNE EXAM[ICD9: V72.31] Diagnosis: ROUTINE MEDICAL EXAM[ICD9: V70.0] Diagnosis: MIGRAINE NOS/NOT INTRCBL[ICD9: 346.90] Caren CEE [facility] CPT-4: 78762 12/21/2011 OFFICE/OUTPATIENT SIT EST Diagnosis: Hemorrhoid[ICD9: 455.6] Diagnosis: Constipation[ICD9: 564.00] Diagnosis: Rash[ICD9: 782.1] Caren ANDERS [facility] CPT-4: 69340 10/07/2011 OFFICE/OUTPATIENT SIT EST Diagnosis: HYPERTENSION[ICD9: 401.9] Diagnosis: MIGRAINE NOS/NOT INTRCBL[ICD9: 346.90] Diagnosis: DIZZINESS/VERTIGO[ICD9: 780.4] Diagnosis: EUSTACHIAN TUBE DYSFUNCTION[ICD9: 381.81] Diagnosis: Plantar warts[ICD9: 078.12] Caren ANDERS [facility] CPT-4: 61942 09/05/2011 OFFICE/OUTPATIENT SIT EST Diagnosis: SINUSITIS, ACUTE[ICD9: 461.9] Diagnosis: COUGH[ICD9: 786.2] Diagnosis: PHARYNGITIS, ACUTE[ICD9: 462] Diagnosis: DIARRHEA[ICD9: 787.91] Caren ANDERS DO [employer] CPT-4: 90178 04/28/2011 OFFICE/OUTPATIENT SIT EST Diagnosis: Finger pain[ICD9: 729.5] Diagnosis: Nasal pain[ICD9: 478.19] Diagnosis: MIGRAINE NOS/NOT INTRCBL[ICD9: 346.90] Diagnosis: Metrorrhagia[ICD9: 626.6] Caren Joneschandrikacara GARBERCAREN MpRajni ARANZAER DO [employer] CPT-4: 86912 04/13/2011 OFFICE/OUTPATIENT SIT EST Diagnosis: Frequent urination[ICD9: 788.41] Caren Robertchandrikacara GARBERCAREN MpRajni ARANZAER DO [employer] CPT-4: 71936 02/04/2011 PREV VISIT EST AGE 4 0-64 Anni GARBERLINE Evelyn JONESNDER DO [employer] CPT-4: 33203 12/06/2010 SPECIMEN HANDLING Anni Brennan CAREN MpRajni ROBERTNDER DO [employer] CPT-4: 20471 12/06/2010 ([id number]) OFFICE/OUTPA TIENT VISIT, EST Caren JONES NDER DO [employer] CPT-4: 03302 04/14/2010 ([id number]) OFFICE/OUTPA TIENT VISIT, EST Caren GARBERLINE SRajni JONES NDER DO [employer] CPT-4: 00155 02/16/2010 ([id number]) OFFICE/OUTPA TIENT VISIT, EST Carenjuana Anders CAREN SRajni ROBERT NDER DO [employer] CPT-4: 47979 02/03/2010 ([id number]) OFFICE/OUTPA TIENT VISIT, EST Carenjuana GARBERLINE SRajni [facility] CPT-4: 64968 01/27/2010 ([id number]) OFFICE/OUTPA TIENT VISIT, EST Caren GreshamRajni [facility] CPT-4: 76908 01/25/2010 ([id number]) PREV VISIT, EST, AGE 40-64 Anni Brennan CAREN Rivas CHAGO DO [employer] CPT-4: 13119 12/08/2009 ([id number]) OFFICE/OUTPA TIENT VISIT, EST Caren Chago Rivas ROBERT CEE DO [employer] CPT-4: 26225 09/01/2009 Plan of Care Planned Activity Notes C odes Status Date Visit Diagnosis Plan: Essential (primary) hypertension Discussion: stable on current medications. rtc 6 months for annual or sooner if needed. will recheck labs at annual. ICD-9 : 401.9 ICD-10 : I10 01/15/2019 Patient Education: High Blood Pressure Completed [...] ICD-10 : J20.9 07/20/2018 Appointment: Nicol Arroyo [address] [place], [place] [id number] 07/20/2018 Patient Education: prednisone- OptimizeRX Coupon [id number] Completed 07/20/2018 Patient Education: [facility] [employer]aving [employer] - Ventolin HFA - 18-64 - Dynamic Portal ID Completed 07/20/2018 Patient Education: azithromycin- Optimize[employer] Coupon [phone] [id number] Completed 07/20/2018 Appointment: Caren Anders WPtel: [phone] [facility] [facility] 06/29/2018 Visit Diagnosis Plan: Encounter for [...] : G43.109 06/11/2018 Appointment: Caren Anders WPtel: [phone] Annual Well Visit 06/11/2018 Patient Education: Valtrex- Optimize[employer] Coupon [id number] Completed 06/11/2018 Patient Education: mupirocin calcium- Op timizeRX Coupon [id number] Completed 06/11/2018 Visit Diagnosis Plan: Encounter for [...] adult medical examination without abnormal findings Discussion: Annamarie lab drawn Update colonoscopy ICD-9 : V70.9 ICD-10 : Z00.00 04/05/2017 Appointment: Caren Anders WPtel: [phone] Annual Well Visit 04/05/2017 Patient Education: Patient Medication Summary Completed 04/05/2017 Care Plan: Referral Order SNOMED-CT : [id number] Pending 04/05/2017 Patient Education: Patient Medication Summary Completed 08/02/2016 Care Plan: MAMMOGRAM SCREENING LOINC : 27520-4 Pending 08/02/2016 Visit Plan: Injection as above [...] supportive care Follow up PRN 02/12/2016 [phone] 02/10 confirmed~sl ACUTE ILLNESS 02/12/2016 Patient Education: Patient Medication Summary Completed 02/12/2016 Visit Plan: Rxs as above OTC meds r eviewed - avoid decongestants Rest, fluids, vicks, humidifier, etc Follow up PRN 01/25/2016 Visit Plan: Rxs as above OTC meds r eviewed - avoid decongestants Rest, fluids, vicks, humidifier, etc Follow up PRN 01/25/2016 Appointment: Twan Phelanfany [address] [facility] ACUTE ILLNESS 01/25/2016 Patient Education: Patient Medication [...] care reviewed Follow up PRN 10/01/2015 Appointment: Tapan Chiara [address] [facility] ACUTE ILLNESS 10/01/2015 Patient Education: Patient Medication Summary Completed 10/01/2015 Visit Plan: Obtain lab results Pap done Mammogram ordered Patient awaiting on Dr. Cuello to restart botox for migraines 08/04/2015 Appointment: Caren Anders WPtel: [address] [place], [place] [phone] 08/02confirmed-sp Annual Well Visit 08/04/2015 Patient Education: Patient Medication Summary Completed 08/04/2015 Care Plan: MAMMOGRAM SCREENING LOINC : 50913-0 Ordered 08/04/2015 Patient Education: Patient Medication Summary Completed 07/29/2015 Care Plan: CBC Ordered 07/29/2015 Visit Plan: Discussed likely perime nopause Will observe through July and then at [facility] with fasting lab including hormone levels If bleeding returns will proceed with pelvic US Check into chiropractor for ma nipulation for right low back/hip pain 05/27/2015 Visit Plan: Discussed likely perime nopause Will observe through July and fwup then at [facility] with fasting lab including hormone levels If bleeding returns will proceed with pelvic US Check into chiropractor for ma nipulation for right low back/hip pain 05/27/2015 Appointment: Caren Anders WPtel: [address] [place], [place] [id number] 05/26/15 vm cn 05/26/15 appt confirmed c n ACUTE ILLNESS 05/27/19 Patient Education: Patient Medication Summary Completed 05/27/2015 Referral: Ignacio Esposito WPtel: [facility] [address] [id number] [place] Referral Initiated 04/07/2015 Referral: Caren Anders WPtel: [address] [place], [place] [phone] 03/26/15 Arrival time 9:30 am Procedure 9:45 am. @ [employer] [facility] [address] [facility] [address] 307 Come sleep deprived(4 hours or less) clean hair, no product in hair, no caffeen Initiated 03/26/2015 Visit Plan: Toradol now with compaz ine po when gets home Proceed with updated EEG/neurology evaluation--discussed may need to go on antiseizure meds and drop out of migraine study No driving for 6mos Discussed w ith Dr. Cuello at [facility] in [place]--he wants to see her in next 1-2weeks 03/10/2015 Appointment: Caren Anders WPtel: [address] [place], [place] [phone] ACUTE ILLNESS 03/10/2015 Patient Education: Patient Medication Summary Completed 03/10/2015 Appointment: Caren Anders WPtel: [address] [place], [place] [phone] LAB 07/29/2014 Patient Education: Patient Medication Summary Completed 07/29/2014 Visit Plan: Check Fasting lab Mammo gram ordered Pap next year Lamisil for 3mos with monthly LFTs 06/30/2014 Appointment: Caren Anders WPtel: [address] [place], [place] [id number] Annual Well Visit 06/30/2014 Patient Education: Patient Medication Summary Completed 06/30/2014 Appointment: Caren Anders WPtel: [address] [place], [place] [id number] Annual Well Visit 06/18/2014 Appointment: Caren Anders WPtel: [address] [place], [place] [id number] ACUTE ILLNESS 06/03/2014 Appointment: Lyndsey Thorpe WPtel: [address] [place] [address] 02/05 ACUTE ILLNESS 02/06/2014 Visit Plan: Benadryl 25mg q HS Clar itin 10mg q AM Prednisone for 1week Call in 1week on cough and rash 08/12/2013 Appointment: Caren Anders WPtel: [address] [place] [address] 08/09 FOLLOW UP 08/12/2013 Patient Education: Patient Medication Summary Completed 08/12/2013 Visit Plan: To [facility] for CXR PA and Lateral Added Macrobid to current antibiotics. Recommended referal to Dr Alejo's office for resistant UTI's 05/31/2013 Appointment: Lyndsey Thorpe WPtel: [address] [place] [address] ACUTE ILLNESS 05/31/2013 Patient Education: Patient Medication Summary Completed 05/31/2013 Visit Plan: Kenalog 40 mg / Depo Me droll 40 mg IM now Complete antibiotics. 05/27/2013 Appointment: Lyndsey Thorpe WPtel: [address] [place] [address] ACUTE ILLNESS 05/27/2013 Patient Education: Patient Medication Summary Completed 05/27/2013 Visit Plan: Lamisil for 3mos Nystat in/TAC topically Check fasting lab 02/26/2013 Appointment: Caren Anders WPtel: [address] [place], [place] [phone] 02/25 ACUTE ILLNESS 02/26/2013 Patient Education: Patient [...] Mycoplasma infection) 11/29/2012 Appointment: Anni Brennan WPtel: [address] [place] [address] FOLLOW UP 11/29/2012 Patient Education: Patient Medication Summary Completed 11/29/2012 Visit Plan: CBC and mycoplasma lab draw. Levaquin and medrol dose pack with codeine/guiaf cough syrup. 11/12/2012 Appointment: Anni Brennan WPtel: [address] [place] [address] ACUTE ILLNESS 11/12/2012 Patient Education: Patient Medication Summary Completed 11/12/2012 Visit Plan: Azithromyacin and medro l dose pack. Will focus on hydration and rest. Pt. will notify if symptoms worsen or do not improve. 07/30/2012 Appointment: Anni Brennan WPtel: [address] [place], [place] [phone] ACUTE ILLNESS 07/30/2012 Patient Education: Patient Medication Summary Completed 07/30/2012 Appointment: Caren Anders WPtel: [address] [place], [place] [phone] US LAB 06/05/2012 Patient Education: Patient Medication [...] from scratching. 06/04/2012 Appointment: Anni Brennan [facility]Ptel: [phone] [facility] [facility] 06/04/2012 Patient Education: Patient Medication Summary Completed 06/04/2012 Visit Plan: Pap done Mammo ordered Pt has started botox for Migraines--next shots end of this month Fasting lab in 12/21/2011 Appointment: Caren Anders WPtel: [address] [place], [place] [phone] PAP 12/21/2011 Patient Education: Patient Medication Summary Completed 12/21/2011 Visit Plan: Encouraged fluids and c ontinued use of stool softener. Pt. reports long standing concerns with constipation. Discussed that will likely proceed with colonoscopy. Referral to Dr. Long. Will apply beta methasone to rash and use rectal foam and topical dibucaine. 10/07/2011 Appointment: Anni Brennan WPtel: [address] [place], [place] [phone] ACUTE ILLNESS 10/07/2011 Patient Education: Patient [...] remover for feet for now 09/05/2011 Appointment: aCren Anders WPtel: [address] [place], [place] [address] FOLLOW UP 09/05/2011 Patient Education: Patient Medication Summary Completed 09/05/2011 Visit Plan: imodium. Discussed the importance of hydration. Phoned Cefuroxime and codeine/guiaf into [facility]. Pt. will notify if symptoms worsen. 04/28/2011 Appointment: Anni Brennan WPtel: [facility] ACUTE ILLNESS 04/28/2011 Patient Education: Patient Medication Summary Completed 04/28/2011 Visit Plan: Use Aleve BID Observe n ose and finger Check Chem 7, estradiol, FSH, LH, TSH 04/13/2011 Appointment: Caren Anders WPtel: [address] [place], [place] [phone] ACUTE ILLNESS 04/13/2011 Patient Education: Patient Medication Summary Completed 04/13/2011 Visit Plan: Septra ds. and Pyridium . Urine sent for culture. Pt. will be notified of culture results. Pt will notify if symptoms are worsening. Will consider lab and imaging studies if symptoms worsen. 02/04/2011 Appointment: Anni Brennan WPtel: [address] [place], [place] [phone] ACUTE ILLNESS 02/04/2011 Patient Education: Patient Medication Summary Completed 02/04/2011 Appointment: Caren Anders WPtel: [address] [place], [place] [phone] LAB 12/21/2010 Patient Education: Patient Medication Summary Completed 12/21/2010 Visit Plan: Dec 13. appnt with trevon chamorro specialist. will ask about EEG at next appnt. Fasting labs: CBC, CMP, TSH, Free T4 and Lipids. Discussed slight discoloration above rt. eyebrow. Will consider surgical refer ral if area does not resolve. Mammo scheduled. 12/06/2010 Appointment: Anni Brennan WPtel: [address] [place], [place] [phone] PAP 12/06/2010 Patient Education: Patient Medication Summary [...] history of colon cancer 04/14/2010 Appointment: Caren Andesr WPtel: [address] [place], [place] [phone] FOLLOW UP 04/14/2010 Patient Education: Patient Medication Summary Completed 04/14/2010 Appointment: Caren Anderstel: [address] [place] [address] US LAB 03/17/2010 Visit Plan: Increase Topamax to 50m g BID Cont Flexeril See Neurology next week 02/16/2010 Appointment: Caren Anders WPtel: [address] [place] [address] FOLLOW UP 02/16/2010 Patient Education: Patient Medication Summary Completed 02/16/2010 Visit Plan: Pt will seek re-eval if symptoms worsen. 02/03/2010 Appointment: Anni Brennan WPtel: [address] [place] [address] ACUTE ILLNESS 02/03/2010 Patient Education: Patient Medication Summary Completed 02/03/2010 Visit Plan: Start Topamax for proph ylaxis See Neurology Discussed triggers such as chocolate Start Cipro as ordered May try Midrin and Compazine as ordered Off work rest of week 01/27/2010 Appointment: Caren Anders WPtel: [address] [place] [address] ER Follow UP 01/27/2010 Patient Education: Patient Medication Summary Completed 01/27/2010 Visit Plan: Check CT head Suspect c omplex migraine vs TIA--esequiel await CT results 01/25/2010 Appointment: Caren Anders WPtel: [address] [place] [address] ACUTE ILLNESS 01/25/2010 Patient Education: Patient Medication Summary Completed 01/25/2010 Appointment: Caren Anders WPtel: [address] [place] [address] LAB 12/09/2009 Patient Education: Patient Medication Summary Completed 12/09/2009 Visit Plan: Claudia will come in [facility] for Lipids, CBC, CMP and TSH. Mammo is scheduled with [facility]. 12/08/2009 Appointment: Anni [facility]nantel: [phone] [facility] [facility] PAP 12/08/2009 Patient Education: Patient Medication Summary Completed 12/08/2009 Visit Plan: Add Macrobid Toradol gi weston Zipsor 25mg QID for 5 days OMT done Call in 2days on back 09/01/2009 Appointment: Caren Anders WPtel: [phone] [facility] ACUTE ILLNESS 09/01/2009 Patient Education: Patient Medication Summary Completed 09/01/2009 Appointment: Caren Anders WPtel: [phone] [facility] LAB 08/26/2009 Patient Education: Patient Medication Summary Completed 08/26/2009 Referral: Partha Long WPtel: [phone] [id number] [address]. Coburn's office will call [...] Discussed with Dr. Cuello at clinic in [place]--he wants to see her in next 1-2weeks [...] observe through July and up then at [facility] with fasting lab including hormone levels [...] for right low back/hip pain . To [facility] r CXR PA and Lateral Added Macrobid [...] CMP and TSH. Mammo is scheduled with [facility]. . Septra ds. and Py ridium. Urine [...] codeine/guiaf cough syrup. . Dec 13. appnt mi th headache specialist. will ask about EEG [...]
--- OUTSIDE RECORDS SUMMARY | 2019-10-11 18:44 | XMS REPORT | CCD ---
Author Author Claudia Anders D.O. Organization [facility] Address [address] [place] [address] Phone Care Team Providers Care Roll On Man Name Role Phone Caren Anders D.O., PP Unavailable CCM Unavailable Summary Purpose Interface Exchange Insurance Providers Payer name Policy type / Coverage type Covered libertarian ID Effective Begin Date Effective End Date Blue Cross Blue Shield Blue Cross/Bl ue Shield [id number] 2018 Un known Family history Father Diagnosis Age At Onset Congestive heart failure Unknown Cancer Unknown Diabetes mellitus Type 2 Unknown Social History Social History Element Codes Description Effective Dates Tobacco history SNOMED CT: 1715651 Former smoker 02/03/2015 Allergies, Adverse Reactions, Alerts Substance Reaction Codes Entered Date Inactivated Date Status * NO KNOWN FOOD ISABELLE RGIES Unknown 09/01/2009 No Inactive Date Active _ Unknown 09/01/2009 No Inactive Date Active PENICILLINS hives Unknown 09/01/2009 No In active Date Active Past Medical History Illness Codes Condition Status Onset Date Resolved Date Acute bronchitis, un specified ICD-9: 466.0 ICD-10: [...] ICD-9: V76.12 ICD-10: Z12.31 Active 08/02/2016 Unknown Essential (primary) hypertension ICD-9: 401.9 ICD-10: I10 Active 06/30/2014 Unknown Migraine with aura, not intractable, without [...] Condition Codes Effectiv e Dates Condition Status Acute bronchitis, un specified ICD-9: 466.0 ICD-10: J20.9 07/20/2018 Active Acute recurrent maxi llary sinusitis ICD-9: 461.0 ICD-10: J01.01 07/20/2018 Active Encounter for genera l adult medical examination without abnormal findings ICD-9: V70.9 ICD-10: Z00.00 08/03/2015 Active Mixed hyperlipidemia ICD-9: 272.4 ICD-10: E78.2 07/29/2014 Active Encounter for screen ing mammogram for malignant neoplasm of breast ICD-9: V76.12 ICD-10: Z12.31 08/02/2016 Active Essential (primary) hypertension ICD-9: 401.9 ICD-10: I10 06/30/2014 Active Migraine with aura, not intractable, without [...] Fill Instructions Zantac 300 mg tablet RxNorm: 691497 TAKE ONE TABLET BY MOUTH EVERY NIGHT AT BEDTIME 01/15/2019 03/15/2019 Active atenolol 25 mg tablet RxNorm: 094624 Tablet(s) TAKE ONE TABLET BY MOUTH DAILY , NEEDS APPT. BEFORE FURTHER REFILLS 01/08/2019 02/06/2019 Active atenolol 25 mg tablet RxNorm: 151878 Tablet(s) TAKE ONE TABLET BY MOUTH DAILY , NEEDS APPT. BEFORE FURTHER REFILLS 12/31/2018 01/07/2019 Inactive atenolol 25 mg tablet RxNorm: 896733 TAKE ONE TABLET BY MOUTH DAILY, NEEDS AP PT. BEFORE FURTHER REFILLS 12/14/2018 12/31/2018 Inactive tizanidine 4 mg tablet RxNorm: 862795 TAKE ONE TABLET BY MOUTH EVERY 8 HOURS A S NEEDED FOR MUSCLE SPASMS 11/16/2018 12/25/2018 Inactive Naprosyn 500 mg tablet RxNorm: 645158 1 Tablet(s) PO BID 10/01/2018 01/28/2019 Active Maxalt 10 mg tablet RxNorm: 184338 1 Tablet(s) PO at headache onset. May re peat in 2 hours if headache remains. Max of 2/24hr 10/01/2018 11/29/2018 Inactive atenolol 25 mg tablet RxNorm: 362885 Tablet(s) TAKE ONE TABLET BY MOUTH DAILY . 10/01/2018 12/13/2018 In active atenolol 25 mg tablet RxNorm: 360289 TAKE ONE TABLET BY MOUTH DAILY. NEED APPOINTMENT BEFORE FURTHER REFILLS. 09/24/2018 09/30/2018 Inactive atenolol 25 mg tablet RxNorm: 598357 TAKE ONE TABLET BY MOUTH DAILY, NEEDS AP PT. BEFORE FURTHER REFILLS 09/11/2018 09/23/2018 Inactive Naprosyn 500 mg tablet RxNorm: 889953 1 Tablet(s) PO BID Due for annual labs a nd appointment 09/11/2018 09/30/2018 Inactive atenolol 25 mg tablet RxNorm: 435174 TAKE ONE TABLET BY MOUTH DAILY, NEEDS AP PT. BEFORE FURTHER REFILLS 08/29/2018 09/10/2018 Inactive doxycycline hyclate 100 mg tablet RxNorm: 3054477 1 Tablet(s) PO BID 07/27/2018 08/05/2018 Inactive doxycycline hyclate 100 mg tablet RxNorm: 3341364 1 Tablet(s) PO BID 07/27/2018 07/26/2018 Inactive Ventolin HFA 90 mcg/ actuation aerosol inhaler RxNorm: 3447488 2 Puff(s) INH Q6H 07/20/2018 08/18/2018 In active prednisone 20 mg tablet RxNorm: 779938 take 2 tabs for 3 days, then 1 tab for 3 days 07/20/2018 07/25/2018 Inactive azithromycin 250 mg tablet RxNorm: 534787 Take 2 tabs today and one tab days 2-5 07/20/2018 07/25/2018 In active z-pack atenolol 25 mg tablet RxNorm: 679281 TAKE ONE TABLET BY MOUTH DAILY, NEEDS AP PT. BEFORE FURTHER REFILLS 07/13/2018 08/26/2018 Inactive mupirocin 2 % topica l cream RxNorm: 219173 Application TOP BID 06/11/2018 No Stop Date Active Valtrex 1 gram tablet RxNorm: 164287 1 Tablet(s) PO BID 06/11/2018 06/20/2018 Inactive atenolol 25 mg tablet RxNorm: 964280 1 Tablet(s) PO QD NEEDS APPOINTMENT BEFO RE FURTHER REFILLS 05/14/2018 07/12/2018 Inactive Naprosyn 500 mg tablet RxNorm: 722568 1 Tablet(s) PO BID Due for annual labs a nd appointment 04/12/2018 05/11/2018 Inactive Zantac 300 mg tablet RxNorm: 077896 TAKE ONE TABLET BY MOUTH EVERY NIGHT AT BEDTIME 04/09/2018 07/07/2018 Inactive tizanidine 4 mg tablet RxNorm: 897532 TAKE ONE TABLET BY MOUTH EVERY 8 HOURS A S NEEDED FOR MUSCLE SPASMS 02/20/2018 04/20/2018 Inactive Maxalt 10 mg tablet RxNorm: 217853 Tablet(s) TAKE ONE TABLET BY MOUTH NE EDED FOR HEADACHE 01/09/2018 03/09/2018 Inactive Naprosyn 500 mg tablet RxNorm: 874087 Tablet(s) TAKE ONE TABLET BY MOUTH TWICE A DAY 01/08/2018 04/12/2018 Inactive atenolol 25 mg tablet RxNorm: 458494 1 Tablet(s) PO QD 01/08/2018 05/14/2018 Inactive Naprosyn 500 mg tablet RxNorm: 415938 TAKE ONE TABLET BY MOUTH TWICE A DAY 12/10/2017 01/08/2018 In active tizanidine 4 mg tablet RxNorm: 056244 1 Tablet(s) PO Q8H as needed for muscle spasm 11/27/2017 11/26/2017 Inactive Maxalt 10 mg tablet RxNorm: 663193 TAKE ONE TABLET BY MOUTH NEEDED FOR H EADACHE 11/13/2017 01/09/2018 Inactive Naprosyn 500 mg tablet RxNorm: 405434 TAKE ONE TABLET BY MOUTH TWICE A DAY 11/13/2017 12/09/2017 In active atenolol 25 mg tablet RxNorm: 924509 1 Tablet(s) PO QD 09/06/2017 01/08/2018 Inactive Naprosyn 500 mg tablet RxNorm: 451056 1 Tablet(s) PO BID 09/04/2017 11/02/2017 Inactive Maxalt 10 mg tablet RxNorm: 413100 1 Tablet(s) PO as needed for headache 08/07/2017 11/12/2017 In active Naprosyn 500 mg tablet RxNorm: 671000 1 Tablet(s) PO BID 07/07/2017 09/04/2017 Inactive Naprosyn 500 mg tablet RxNorm: 742710 1 Tablet(s) PO BID TAKE ONE TABLET BY MO UTH TWICE A DAY 06/08/2017 07/07/2017 Inactive tizanidine 4 mg tablet RxNorm: 495189 1 Tablet(s) PO Q8H as needed for muscle spasm 05/10/2017 11/27/2017 Inactive atenolol 25 mg tablet RxNorm: 299027 1 Tablet(s) PO QD 05/10/2017 09/06/2017 Inactive Maxalt 10 mg tablet RxNorm: 453016 1 Tablet(s) PO as needed for headache 05/10/2017 08/06/2017 In active atenolol 25 mg tablet RxNorm: 723644 1 Tablet(s) PO QD LAST REFILL---NEEDS UP DATED LAB AND APPOINTMENT 04/04/2017 05/03/2017 Inactive Zantac 300 mg tablet RxNorm: 018747 Tablet(s) TAKE ONE TABLET BY MOUTH EVERY NIGHT AT BEDTIME 04/03/2017 07/31/2017 Inactive atenolol 25 mg tablet RxNorm: 649662 1 Tablet(s) PO QD LAST REFILL---NEEDS UP DATED LAB AND APPOINTMENT 03/02/2017 04/04/2017 Inactive atenolol 25 mg tablet RxNorm: 848293 1 Tablet(s) PO QD LAST REFILL---NEEDS UP DATED LAB AND APPOINTMENT 02/01/2017 05/10/2017 Inactive Naprosyn 500 mg tablet RxNorm: 962078 1 Tablet(s) PO BID TAKE ONE TABLET BY MO UTH TWICE A DAY 01/02/2017 06/08/2017 Inactive atenolol 25 mg tablet RxNorm: 540270 1 Tablet(s) PO QD Need Labs and appointm ent 12/26/2016 02/01/2017 In active Naprosyn 500 mg tablet RxNorm: 661772 1 Tablet(s) PO BID TAKE ONE TABLET BY MO UTH TWICE A DAY 12/05/2016 01/02/2017 Inactive Naprosyn 500 mg tablet RxNorm: 652054 Tablet(s) TAKE ONE TABLET BY MOUTH TWICE A DAY 11/07/2016 12/05/2016 Inactive Naprosyn 500 mg tablet RxNorm: 707688 Tablet(s) TAKE ONE TABLET BY MOUTH TWICE A DAY 10/06/2016 11/07/2016 Inactive Naprosyn 500 mg tablet RxNorm: 967849 TAKE ONE TABLET BY MOUTH TWICE A DAY 09/04/2016 10/03/2016 In active Naprosyn 500 mg tablet RxNorm: 907693 TAKE ONE TABLET BY MOUTH TWICE A DAY 07/01/2016 08/29/2016 In active Naprosyn 500 mg tablet RxNorm: 891923 TAKE ONE TABLET BY MOUTH TWICE A DAY 04/27/2016 06/25/2016 In active Zantac 300 mg tablet RxNorm: 044444 TAKE ONE TABLET BY MOUTH EVERY NIGHT AT BEDTIME 03/09/2016 04/03/2017 Inactive Levaquin 500 mg tablet RxNorm: 925406 1 Tablet(s) PO QD 02/12/2016 02/18/2016 Inactive azithromycin 250 mg tablet RxNorm: 113532 2 Tablet(s) PO on day one then 1 tab on days 2-5 01/25/2016 01/24/2016 Inactive Medrol (Camilo) 4 mg ta blets in a dose pack RxNorm: 450257 Take as directed 01/25/2016 04/04/2017 In active Naprosyn 500 mg tablet RxNorm: 925757 1 Tablet(s) PO BID 01/15/2016 04/13/2016 Inactive Brisdelle 7.5 mg cap violeta RxNorm: 5796187 1 Capsule(s) PO QHS 12/10/2015 04/04/2017 Inactive atenolol 25 mg tablet RxNorm: 347029 TAKE ONE TABLET BY MOUTH DAILY 12/04/2015 12/26/2016 In active Maxalt 10 mg tablet RxNorm: 191803 1 Tablet(s) PO as needed for headache 10/05/2015 05/09/2017 In active Bactrim DS 800 mg-16 0 mg tablet RxNorm: 864628 1 Tablet(s) PO BID 10/01/2015 10/07/2015 Inactive Zantac 300 mg tablet RxNorm: 334422 Tablet(s) TAKE ONE TABLET BY MOUTH EVERY NIGHT AT BEDTIME 10/01/2015 11/29/2015 Inactive atenolol 25 mg tablet RxNorm: 231377 TAKE ONE TABLET BY MOUTH DAILY 06/09/2015 08/07/2015 In active Naprosyn 500 mg tablet RxNorm: 345246 TAKE ONE TABLET BY MOUTH TWICE A DAY 05/29/2015 01/15/2016 In active Zantac 300 mg tablet RxNorm: 331760 Tablet(s) TAKE ONE TABLET BY MOUTH EVERY NIGHT AT BEDTIME 03/30/2015 10/01/2015 Inactive Compazine 10 mg tablet RxNorm: 857649 1 Tablet(s) PO TID as needed for nausea 03/10/2015 05/26/2015 In active Prevacid 30 mg capsu le,delayed release RxNorm: 782107 Capsule(s) TAKE ONE C APSULE BY MOUTH ONCE A DAY 12/19/2014 05/17/2015 Inactive Naprosyn 500 mg tablet RxNorm: 533569 1 Tablet(s) PO BID 12/02/2014 03/01/2015 Inactive Zantac 300 mg tablet RxNorm: 793342 TAKE ONE TABLET BY MOUTH EVERY NIGHT AT BEDTIME 09/18/2014 03/30/2015 Inactive Naprosyn 500 mg tablet RxNorm: 366059 1 Tablet(s) PO BID 09/04/2014 12/02/2014 Inactive atenolol 25 mg tablet RxNorm: 467788 1 Tablet(s) PO QD 07/17/2014 03/09/2015 Inactive Zantac 300 mg tablet RxNorm: 002162 1 Tablet(s) PO QHS 06/30/2014 09/17/2014 Inactive Lamisil 250 mg tablet RxNorm: 063106 1 Tablet(s) PO QD 06/30/2014 09/27/2014 Inactive Treximet 85 mg-500 m g tablet RxNorm: 798410 Tablet(s) PO PRN as n eeded 06/30/2014 03/09/2015 In active Prevacid 30 mg capsu le,delayed release RxNorm: 688634 TAKE ONE CAPSULE BY M OUTH ONCE A DAY 06/16/2014 12/19/2014 Inactive Treximet 85 mg-500 m g tablet RxNorm: 994832 Tablet(s) PO PRN as n eeded 06/06/2014 06/29/2014 In active Pepcid 20 mg tablet RxNorm: 760955 1 Tablet(s) PO QHS 03/19/2014 06/29/2014 Inactive [SAVINGS FOR UNINSURED PATIENTS -- BIN:[id number], PCN: [id number], Group: [id number], ID# [id number], Process claim through MedImpact, for questions: . THIS IS NOT INSURANCE.] atenolol 25 mg tablet RxNorm: 268521 1 Tablet(s) PO QD 01/15/2014 07/17/2014 Inactive Pepcid 20 mg tablet RxNorm: 444773 1 Tablet(s) PO QHS 12/23/2013 12/22/2013 Inactive Pepcid 20 mg tablet RxNorm: 099319 1 Tablet(s) PO QHS 12/23/2013 03/19/2014 Inactive [SAVINGS FOR UNINSURED PATIENTS -- BIN:[id number], PCN: ASPROD1, Group: [id number], ID# [id number], Process claim through MedImpact, for questions: . THIS IS NOT INSURANCE.] Prevacid 30 mg capsu le,delayed release RxNorm: 352299 1 Capsule(s) PO QD 12/23/2013 06/15/2014 In active [SAVINGS FOR UNINSURED PATIENTS -- BIN:0 [id number], PCN: ASPROD1, Group: [id number], ID# [id number], Process claim through MedImpact, for questions: . THIS IS NOT INSURANCE.] loratadine 10 mg tablet RxNorm: 107258 TAKE ONE TABLET BY MOUTH EVERY MORNING 09/09/2013 04/06/2014 In active nystatin-triamcinolo ne 100,000 unit/g-0.1 % topical cream RxNorm: 5347197 1 Application TOP QHS to rash 08/22/2013 06/29/2014 Inactive prednisone 20 mg tablet RxNorm: 366385 1 Tablet(s) PO BID 08/12/2013 08/18/2013 Inactive loratadine 10 mg tablet RxNorm: 158927 1 Tablet(s) PO QAM 08/12/2013 09/08/2013 Inactive Treximet 85 mg-500 m g tablet RxNorm: 704405 Tablet(s) PO PRN 07/22/2013 07/21/2013 Inactive atenolol 25 mg tablet RxNorm: 501031 1 Tablet(s) PO QD 07/22/2013 01/15/2014 Inactive Prevacid 30 mg capsu le,delayed release RxNorm: 400466 1 Capsule(s) PO BID 07/22/2013 12/22/2013 In active nitrofurantoin macro crystal 100 mg capsule RxNorm: 147164 1 Capsule(s) PO BID 05/31/2013 06/06/2013 In active albuterol sulfate HF A 90 mcg/actuation aerosol inhaler RxNorm: 341285 2 Puff(s) INH QID 05/31/2013 06/13/2013 Inactive azithromycin 250 mg tablet RxNorm: 756121 2 Tablet(s) PO QD 05/27/2013 06/02/2013 Inactive Prevacid 30 mg capsu le,delayed release RxNorm: 298054 1 Capsule(s) PO BID 03/20/2013 07/21/2013 In active Lamisil 250 mg tablet RxNorm: 607436 1 Tablet(s) PO QD 02/26/2013 05/26/2013 Inactive betamethasone eloy te 0.1 % Topical Cream RxNorm: 623464 1 Application TOP BID 11/29/2012 12/12/2012 In active Diflucan 100 mg tablet RxNorm: 448778 1 Tablet(s) PO QD 11/29/2012 12/08/2012 Inactive nystatin 100,000 uni t/gram Topical Powder RxNorm: 794278 1 Gram(s) TOP BID belinda ly to affected areas twice daily 11/29/2012 12/08/2012 Inactive Medrol (Camilo) 4 mg ta blets in a dose pack RxNorm: 356177 Tablet(s) PO as direc nico 11/12/2012 02/25/2013 In active Levaquin 750 mg tablet RxNorm: 186992 1 Tablet(s) PO QD antibiotic 11/12/2012 11/21/2012 Inactive Prevacid 30 mg capsu le,delayed release RxNorm: 884347 1 Capsule(s) PO BID 09/17/2012 03/15/2013 In active azithromycin 250 mg tablet RxNorm: 535102 2 Tablet(s) PO QD 07/30/2012 08/06/2012 Inactive nystatin 100,000 uni t/g Ointment RxNorm: 659607 1 Gram(s) TOP BID belinda ly to affected area twice daily 06/21/2012 06/30/2012 Inactive nystatin 100,000 uni t/g Ointment RxNorm: 643661 1 Gram(s) TOP BID belinda ly to affected area twice daily 06/04/2012 06/13/2012 Inactive Prevacid 30 mg capsu le,delayed release RxNorm: 021516 1 Capsule(s) PO BID 03/01/2012 08/27/2012 In active Omnaris 50 mcg Nasal In[place] RxNorm: 400806 2 Inman NASAL QD each nostril 12/21/2011 03/09/2015 In active betamethasone eloy te 0.1 % Topical Cream RxNorm: 505622 1 Application TOP BID 10/07/2011 10/20/2011 In active dibucaine 1 % Rectal Ointment RxNorm: 687642 1 RTL TID 10/07/2011 10/16/2011 Inactive Proctofoam 1 % Topic al Foam RxNorm: 196507 1 TOP BID 10/07/2011 10/16/2011 Inactive Treximet 85 mg-500 m g Tab RxNorm: 156016 Tablet(s) PO Take 1 a t headache onset and may repeat 1 in two hours if needed 09/05/2011 No Stop Date Active Prevacid 30 mg capsu le,delayed release RxNorm: 886930 1 Capsule(s) PO BID 08/30/2011 02/25/2012 In active Flexeril 5 mg tablet RxNorm: 583732 1-2 Tablet(s) PO QHS 08/05/2011 06/29/2014 Inactive prn spasm cefuroxime axetil 50 0 mg Tab RxNorm: 555852 1 Tablet(s) PO BID 04/28/2011 05/07/2011 Inactive Flexeril 5 mg Tab RxNorm: 078816 1-2 Tablet(s) PO QHS 04/20/2011 08/05/2011 Inactive prn spasm Prevacid 30 mg Capsu le, delayed release RxNorm: 244257 1 Capsule(s) PO BID 02/23/2011 08/30/2011 In active Prevacid 30 mg Cap RxNorm: 075544 1 Capsule(s) PO QD 02/21/2011 02/22/2011 Inactive Pyridium 100 mg Tab RxNorm: 3899024 1 Tablet(s) PO TID 02/04/2011 02/05/2011 Inactive will turn urine orange/red. Septra DS 800 mg-160 mg Tab RxNorm: 847004 1 Tablet(s) PO BID 02/04/2011 02/08/2011 Inactive lisinopril 10 mg Tab RxNorm: 748642 1 Tablet(s) PO QD 12/06/2010 01/04/2011 Inactive amitriptyline 10 mg Tab RxNorm: 643764 2 Tablet(s) PO QD 12/06/2010 01/04/2011 Inactive Treximet 85 mg-500 m g Tab RxNorm: 336588 1 Tablet(s) PO 12/02/2010 09/05/2011 Inactive at H A onset, may repeat i po in 2hrs if CHAUHAN remains lisinopril 20 mg Tab RxNorm: 325549 1 Tablet(s) PO QD 09/10/2010 12/06/2010 Inactive Prevacid 30 mg Cap RxNorm: 029990 1 Capsule(s) PO BID 08/09/2010 02/21/2011 Inactive Flexeril 5 mg Tab RxNorm: 443032 1-2 Tablet(s) PO QHS prn spasm 04/14/2010 04/20/2011 In active Topamax 50 mg Tab RxNorm: 484242 1 Tablet(s) PO BID 02/16/2010 04/13/2010 Inactive Topamax 50 mg Tab RxNorm: 448103 1/2 Tablet(s) PO QHS for 1wk then 1 po Q HS 02/15/2010 02/15/2010 In active Cefdinir 300 mg Cap RxNorm: 402782 1 Capsule(s) PO BID One tablet PO twice daily for 10 days. 02/03/2010 02/12/2010 Inactive Topamax 50 mg Tab RxNorm: 306008 1/2 Tablet(s) PO QHS for 1wk then 1 po Q HS 01/27/2010 02/14/2010 In active Flexeril 5 mg Tab RxNorm: 517339 1 Tablet(s) PO TID prn spasm 01/25/2010 02/15/2010 Inactive Macrobid 100 mg Cap RxNorm: 1072433 1 Capsule(s) PO BID 09/01/2009 09/07/2009 Inactive Prevacid 30 mg Cap RxNorm: 108646 1 Capsule(s) PO BID 09/01/2009 09/30/2009 Inactive Flexeril 5 mg Tab RxNorm: 156815 1 Tablet(s) PO TID prn spasm 09/01/2009 09/30/2009 Inactive lisinopril 20 mg Tab RxNorm: 555490 1 Tablet(s) PO QD 08/31/2009 09/10/2010 Inactive atenolol 25 mg Tab RxNorm: 378495 1 Tablet(s) PO QD No Start Date 07/30/2012 Inactive magnesium 100 mg tablet RxNorm: 1 Tablet(s) PO QD No Start Date Active Calcium with Vitamin D 600 mg-400 unit Tab RxNorm: 987433 1 Tablet(s) PO QD No Start Date Active Aspirin 81 mg Tab RxNorm: 323510 1 Tablet(s) PO QD No Start Date Active Brisdelle 7.5 mg cap violeta RxNorm: 0875296 1 Capsule(s) PO QHS No Start Date 12/09/2015 Inactive Prevacid 30 mg Cap RxNorm: 572847 1 Capsule(s) PO QD No Start Date 02/20/2011 Inactive Ultram 50 mg Tab RxNorm: 063939 2 Tablet(s) PO QID prn headache No Start Date 04/13/2010 Inactive tizanidine 4 mg tablet RxNorm: 944950 1 Tablet(s) PO Q8H as needed for muscle spasm No Start Date 05/09/2017 Inactive nystatin-triamcinolo ne 100,000 unit/g-0.1 % topical cream RxNorm: 5601891 1 Application TOP QHS to rash No Start Date 08/21/2013 Inactive Imitrex 100 mg tablet RxNorm: 609152 1 Tablet(s) PO at CHAUHAN onset-September repeat in 6hours as needed No Start Date 08/03/2015 Inactive Treximet 85 mg-500 m g Tab RxNorm: 196546 1 Tablet(s) PO at CHAUHAN onset, may repeat i po in 2hrs if CHAUHAN remains No Start Date 12/02/2010 Inactive alprazolam 0.25 mg t ablet RxNorm: 496216 1 Tablet(s) PO QPM No Start Date 08/03/2015 Inactive amitriptyline 25 mg Tab RxNorm: 472559 1 Tablet(s) PO QAM No Start Date 12/06/2010 Inactive amitriptyline 10 mg Tab RxNorm: 888379 Tablet(s) PO Take 4 tablets by mouth 1 w pechanga before period and week of period and 3 tablets other 2 weeks of month No Start Date 09/04/2011 Inactive Omnaris 50 mcg Nasal [place] RxNorm: 478726 2 [place] NASAL QD each nostril No Start Date 12/20/2011 Inactive sertraline 25 mg tablet RxNorm: 505310 1 Tablet(s) PO QD No Start Date 08/03/2015 Inactive atenolol 25 mg tablet RxNorm: 435714 1 Tablet(s) PO QD No Start Date 07/21/2013 Inactive hydrochlorothiazide 25 mg tablet RxNorm: 871626 1 Tablet(s) PO QAM No Start Date 05/26/2015 Inactive Maxalt 10 mg tablet RxNorm: 448339 Tablet(s) PO as needed for headache No Start Date 10/04/2015 Inactive atenolol 25 mg Tab RxNorm: 731558 1/2 Tablet(s) PO QD No Start Date 12/20/2011 Inactive Medrol (Camilo) 4 mg ta blets in a dose pack RxNorm: 717056 Tablet(s) PO as direc nico No Start Date 11/11/2012 Inactive Naprosyn 500 mg tablet RxNorm: 136505 1 Tablet(s) PO BID No Start Date 09/04/2014 Inactive promethazine-codeine 6.25 mg-10 mg/5 mL syrup RxNorm: 024723 PO No Start Date 06/29/2014 Inactive Flexeril 5 mg Tab RxNorm: 883836 2 Tablet(s) PO QHS No Start Date 04/13/2010 Inactive Treximet 85 mg-500 m g tablet RxNorm: 399222 Tablet(s) PO PRN No Start Date 07/21/2013 Inactive cyclobenzaprine 5 mg tablet RxNorm: 961898 1-2 Tablet(s) PO QHS No Start Date 03/09/2015 Inactive atenolol 25 mg tablet RxNorm: 867035 1 Tablet(s) PO QD No Start Date 12/25/2016 Inactive lisinopril 20 mg Tab RxNorm: 363997 1 Tablet(s) PO QD No Start Date 10/06/2011 Inactive Topamax 50 mg Tab RxNorm: 010004 1 Tablet(s) PO BID No Start Date 02/15/2010 Inactive Treximet 85 mg-500 m g Tab RxNorm: 110430 Tablet(s) PO Take 1 a t headache onset and may repeat 1 in two hours if needed No Start Date 09/04/2011 Inactive Stool Softener 100 m g Cap RxNorm: 9786974 3 Capsule(s) PO QD No Start Date 06/29/2014 Inactive flax seed oil RxNorm: 1 PO QD No Start Date 03/09/2015 Inactive Medication Administered No Medication Administered data Immunizations Vaccine Codes Date Status Tetanus, Diptheria, Pertussis CVX: 115 06/11/2018 completed Assessments Condition Codes Effectiv e Dates Acute bronchitis, unspecified ICD-10 : J20.9 ICD-9: [...] of breast ICD-10: Z12.31 ICD-9: V76.12 06/11/2018 Essential (primary) hypertension ICD -10: I10 ICD-9: 401.9 06/11/2018 Persistent migraine 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 cerebra l [...] Visit Reason For Visit Effective Dates Notes sore throat 07/20/2018 lab draw 06/29/2018 well [...] since 02/06/10 sinusitis 02/03/2010 follow up 01/27/2010 dameon [facility] ER-dx with UTI/migraine and given medications but hasn't filled anything yet headache 01/25/2010 antonio ing lab draw 12/09/2009 well woman exam (40-65 years) 12/08/2009 back pain 09/01/2009 low back pain Results Observation Observation Code Item Item Code Result Date COMPREHENSIVE METABOLIC 34201 AST 15 U/L 06/29/2018 COMPREHENSIVE METABOLIC 72018 ALT 15 U/L 06/29/2018 COMPREHENSIVE METABOLIC 48769 BUN 19 mg/dL 06/29/2018 COMPREHENSIVE METABOLIC 29422 ALBUMIN 4.3 g/dL 06/29/2018 COMPREHENSIVE METABOLIC 66365 CHLORIDE 106 mmol/L 06/29/2018 COMPREHENSIVE METABOLIC 19104 Bili Total 0.6 mg/dL 06/29/2018 COMPREHENSIVE METABOLIC 65178 ALK PHOS 82 U/L 06/29/2018 COMPREHENSIVE METABOLIC 50393 SODIUM 141 mmol/L 06/29/2018 COMPREHENSIVE METABOLIC 75765 CREATININE 0.66 mg/dL 06/29/2018 COMPREHENSIVE METABOLIC 82061 CALCIUM 9.6 mg/dL 06/29/2018 COMPREHENSIVE METABOLIC 62262 POTASSIUM 4.3 mmol/L 06/29/2018 COMPREHENSIVE METABOLIC 97503 Total Protein 7.0 g/dL 06/29/2018 COMPREHENSIVE METABOLIC 03620 Glucose 102 mg/dL 06/29/2018 COMPREHENSIVE METABOLIC 89583 Bicarbonate 29 mmol/L 06/29/2018 COMPREHENSIVE METABOLIC 57732 AGAP 6 mmol/L 06/29/2018 FREE T4 54556 T4 Free 1.04 ng/dL 06/29/2018 GFR CALC 7100201 GFR Non Afr Amr >60 mL/min 06/29/2018 GFR CALC 9756273 GFR Afr Amr >60 mL/min 06/29/2018 LIPID GROUP 59910 Choles terol 197 mg/dL 06/29/2018 LIPID GROUP 77675 Trigly ceride 70 mg/dL 06/29/2018 LIPID GROUP 81259 HDL CH OLESTEROL 45 mg/dL 06/29/2018 LIPID GROUP 50725 Chol/H DL Ratio 4.38 ratio 06/29/2018 LIPID GROUP 47994 NON-HD L Chol 152 mg/dL 06/29/2018 LIPID GROUP 13992 LDL Ch olesterol 138 mg/dL 06/29/2018 THYROID STIMULATING HORMONE 71135 TSH 1.477 uIU/mL 9 COMPLETE BLOOD COUNT 4892811 WBC 5.2 10e9/L 06/29/2018 COMPLETE BLOOD COUNT 1404811 RBC 4.93 10e12/L 9 COMPLETE BLOOD COUNT 8013286 HEMOGLOBIN 14.3 g/dL 06/29/2018 COMPLETE BLOOD COUNT 0344605 HEMATOCRIT 42.9 % 06/29/2018 COMPLETE BLOOD COUNT 0519892 MCV 87.0 fL 06/29/2018 COMPLETE BLOOD COUNT 2034283 MCH 29.0 pg 06/29/2018 COMPLETE BLOOD COUNT 2978318 MCHC 33.3 g/dL 06/29/2018 COMPLETE BLOOD COUNT 1555621 PLATELET COUNT 289 10e9/L 06/29/2018 COMPLETE BLOOD COUNT 3311199 Mean Plt Volume 10.6 fL 06/29/2018 COMPLETE BLOOD COUNT 7474783 Neut Auto 74.1 % 06/29/2018 COMPLETE BLOOD COUNT 7935830 Lymph Auto 14.7 % 06/29/2018 COMPLETE BLOOD COUNT 1771952 Meade Auto 8.3 % 06/29/2018 COMPLETE BLOOD COUNT 7623242 RDW 13.7 % 06/29/2018 COMPLETE BLOOD COUNT [id number] Eos Auto 2.7 % 06/29/2018 COMPLETE BLOOD COUNT [id number] Baso Auto 0.2 % 06/29/2018 COMPLETE BLOOD COUNT [id number] Neutrophil Abs 3.85 10e9/L 06/29/2018 COMPLETE BLOOD COUNT [id number] Lymphocyte Abs 0.76 10e9/L 06/29/2018 COMPLETE BLOOD COUNT [id number] Monocyte Abs 0.43 10e9/L 06/29/2018 COMPLETE BLOOD COUNT [id number] Eosinophil Abs 0.14 10e9/L 06/29/2018 COMPLETE BLOOD COUNT [id number] RDW-SD 42.7 fL 06/29/2018 COMPLETE BLOOD COUNT [id number] Basophil Abs 0.01 10e9/L 06/29/2018 IRON 22897 IRON TEST 42 UG/DL 07/31/2014 FERRITIN 71153 FERRITIN 10 NG/ML 07/31/2014 VITAMIN B 12 FOLIC ACID 58081|09681 VIT B 12 233 PG/ML 07/31/2014 VITAMIN B 12 FOLIC ACID 33777|29371 FOLIC ACID 8.7 NG/ML 5 COMPLETE BLOOD COUNT [id number] WBC 6.4 10e9/L 07/29/2014 COMPLETE BLOOD COUNT [id number] RBC 4.36 10e12/L 5 COMPLETE BLOOD COUNT [id number] HGB 11.5 g/dL 07/29/2014 COMPLETE BLOOD COUNT 1989314 HCT DET 35.3 % 07/29/2014 COMPLETE BLOOD COUNT [id number] MCV 81.0 fL 07/29/2014 COMPLETE BLOOD COUNT [id number] MCH 26.4 pg 07/29/2014 COMPLETE BLOOD COUNT [id number] MCHC 32.6 g/dL 07/29/2014 COMPLETE BLOOD COUNT [id number] PLT 329 10e9/L 07/29/2014 COMPLETE BLOOD COUNT 2255371 MPV 10.4 fL 07/29/2014 COMPLETE BLOOD COUNT 7834159 ROLAND % 69.6 % 07/29/2014 COMPLETE BLOOD COUNT 7579571 LY % 21.3 % 07/29/2014 COMPLETE BLOOD COUNT 5465110 MON % 6.8 % 07/29/2014 COMPLETE BLOOD COUNT 6029042 EOS % 2.0 % 07/29/2014 COMPLETE BLOOD COUNT 5720447 BASO % 0.3 % 07/29/2014 COMPLETE BLOOD COUNT 9042154 RDW 15.9 % 07/29/2014 COMPLETE BLOOD COUNT 9471356 ABS ROLAND 4.45 10e9/L 07/29/2014 COMPLETE BLOOD COUNT 1630469 ABS LYMPH 1.36 10e9/L 07/29/2014 COMPLETE BLOOD COUNT 9509308 ABS MONO 0.44 10e9/L 07/29/2014 COMPLETE BLOOD COUNT 7672182 ABS EOS 0.13 10e9/L 07/29/2014 COMPLETE BLOOD COUNT 9599747 ABS BASO 0.02 10e9/L 07/29/2014 COMPLETE BLOOD COUNT 7990947 RDW-SD 46.1 fL 07/29/2014 LIPID GROUP [address] 41 MG/DL 07/29/2014 LIPID GROUP 21339 TRIG 92 MG/DL 07/29/2014 LIPID GROUP 45668 TEST L DL 118 MG/DL 07/29/2014 LIPID GROUP 05245 CHOL 177 MG/DL 07/29/2014 LIPID GROUP 05138 RCHOL/ HDL 4.32 RATIO 07/29/2014 LIPID GROUP 40532 NON-HD L CH 136 MG/DL 07/29/2014 GFR CALC 7002980 GFR AA >60 ML/MIN 07/29/2014 GFR CALC 5582939 GFR NON -AA >60 ML/MIN 07/29/2014 FREE T4 44240 FREE T4 1.10 NG/DL 07/29/2014 COMPREHENSIVE METABOLIC 27772 AST 13 U/L 07/29/2014 COMPREHENSIVE METABOLIC 20905 ALT 12 IU/L 07/29/2014 COMPREHENSIVE METABOLIC 30060 BUN 16 MG/DL 07/29/2014 COMPREHENSIVE METABOLIC 30356 ALBUMIN 4.1 GM/DL 07/29/2014 COMPREHENSIVE METABOLIC 51626 CHLORIDE 106 MMOL/L 07/29/2014 COMPREHENSIVE METABOLIC 10039 BILI TOT 0.4 MG/DL 07/29/2014 COMPREHENSIVE METABOLIC 23663 ALK PHOS 77 U/L 07/29/2014 COMPREHENSIVE METABOLIC 89501 SODIUM 137 MMOL/L 07/29/2014 COMPREHENSIVE METABOLIC 61245 CREATININE 0.65 MG/DL 07/29/2014 COMPREHENSIVE METABOLIC 72947 CALCIUM 9.0 MG/DL 07/29/2014 COMPREHENSIVE METABOLIC 23415 POTASSIUM 4.0 MMOL/L 07/29/2014 COMPREHENSIVE METABOLIC 41868 PROT TOT 6.3 GM/DL 07/29/2014 COMPREHENSIVE METABOLIC 83453 Glucose 98 MG/DL 07/29/2014 COMPREHENSIVE METABOLIC 75454 BICARB 26 MMOL/L 07/29/2014 COMPREHENSIVE METABOLIC 91373 ANION GAP 5 MEQ/L 07/29/2014 THYROID STIMULATING HORMONE 85728 TSH 1.678 uIU/ML 5 GFR CALC 6798736 GFR AA >60 ML/MIN 02/26/2013 GFR CALC 0717772 GFR NON -AA >60 ML/MIN 02/26/2013 THYROID STIMULATING HORMONE 93588 TSH 1.635 uIU/ML 3 COMPLETE BLOOD COUNT 8288696 WBC 7.8 10e9/L 02/26/2013 COMPLETE BLOOD COUNT 8161903 RBC 4.60 10e12/L 3 COMPLETE BLOOD COUNT 2825502 HGB 12.7 g/dL 02/26/2013 COMPLETE BLOOD COUNT 3759927 HCT DET 38.1 % 02/26/2013 COMPLETE BLOOD COUNT 0464299 MCV 82.8 fL 02/26/2013 COMPLETE BLOOD COUNT 3550352 MCH 27.6 pg 02/26/2013 COMPLETE BLOOD COUNT 5227560 MCHC 33.3 g/dL 02/26/2013 COMPLETE BLOOD COUNT 3902292 PLT 324 10e9/L 02/26/2013 COMPLETE BLOOD COUNT 3003314 MPV 10.2 fL 02/26/2013 COMPLETE BLOOD COUNT 9127500 ROLAND % 72.0 % 02/26/2013 COMPLETE BLOOD COUNT 4416775 LY % 20.1 % 02/26/2013 COMPLETE BLOOD COUNT 5535920 MON % 6.3 % 02/26/2013 COMPLETE BLOOD COUNT 3825041 EOS % 1.3 % 02/26/2013 COMPLETE BLOOD COUNT 8567868 BASO % 0.3 % 02/26/2013 COMPLETE BLOOD COUNT 4593991 RDW 14.4 % 02/26/2013 COMPLETE BLOOD COUNT 0591263 ABS ROLAND 5.62 10e9/L 02/26/2013 COMPLETE BLOOD COUNT 6428170 ABS LYMPH 1.57 10e9/L 02/26/2013 COMPLETE BLOOD COUNT 9941476 ABS MONO 0.49 10e9/L 02/26/2013 COMPLETE BLOOD COUNT 0939226 ABS EOS 0.10 10e9/L 02/26/2013 COMPLETE BLOOD COUNT 6270873 ABS BASO 0.02 10e9/L 02/26/2013 COMPLETE BLOOD COUNT 3814206 RDW-SD 42.8 fL 02/26/2013 COMPREHENSIVE METABOLIC 24937 AST 15 U/L 02/26/2013 COMPREHENSIVE METABOLIC 02077 ALT 14 IU/L 02/26/2013 COMPREHENSIVE METABOLIC 87667 BUN 14 MG/DL 02/26/2013 COMPREHENSIVE METABOLIC 78683 ALBUMIN 4.2 GM/DL 02/26/2013 COMPREHENSIVE METABOLIC 43169 CHLORIDE 104 MMOL/L 02/26/2013 COMPREHENSIVE METABOLIC 55290 BILI TOT 0.6 MG/DL 02/26/2013 COMPREHENSIVE METABOLIC 59550 ALK PHOS 71 U/L 02/26/2013 COMPREHENSIVE METABOLIC 39617 SODIUM 136 MMOL/L 02/26/2013 COMPREHENSIVE METABOLIC 16655 CREATININE 0.62 MG/DL 02/26/2013 COMPREHENSIVE METABOLIC 33202 CALCIUM 9.5 MG/DL 02/26/2013 COMPREHENSIVE METABOLIC 29039 POTASSIUM 4.1 MMOL/L 02/26/2013 COMPREHENSIVE METABOLIC 40040 PROT TOT 6.7 GM/DL 02/26/2013 COMPREHENSIVE METABOLIC 58788 Glucose 92 MG/DL 02/26/2013 COMPREHENSIVE METABOLIC 48386 BICARB 26 MMOL/L 02/26/2013 COMPREHENSIVE METABOLIC 45792 ANION GAP 6 MEQ/L 02/26/2013 LIPID GROUP [address] 45 MG/DL 02/26/2013 LIPID GROUP 30698 TRIG 107 MG/DL 02/26/2013 LIPID GROUP 04782 TEST L DL 129 MG/DL 02/26/2013 LIPID GROUP 09056 CHOL 195 MG/DL 02/26/2013 LIPID GROUP 33080 RCHOL/ HDL 4.33 RATIO 02/26/2013 FREE T4 85057 FREE T4 1.07 NG/DL 02/26/2013 MYCOPLASMA ANTIBODY, IFA [id number] MYCO G IFA 1:128 11/13/2012 MYCOPLASMA ANTIBODY, IFA [id number] MYCO M IFA <1:10 11/13/2012 MYCOPLASMA ANTIBODY, IFA 59686H1 MYCO INTER SEE BELO 11/13/2012 COMPLETE BLOOD COUNT 6471255 WBC 6.0 10e9/L 11/12/2012 COMPLETE BLOOD COUNT 2399442 RBC 4.68 10e12/L 3 COMPLETE BLOOD COUNT 8977733 HGB 12.9 g/dL 11/12/2012 COMPLETE BLOOD COUNT 6587365 HCT DET 38.7 % 11/12/2012 COMPLETE BLOOD COUNT 7264211 MCV 82.7 fL 11/12/2012 COMPLETE BLOOD COUNT 2020992 MCH 27.6 pg 11/12/2012 COMPLETE BLOOD COUNT 1231086 MCHC 33.3 g/dL 11/12/2012 COMPLETE BLOOD COUNT 0557805 PLT 297 10e9/L 11/12/2012 COMPLETE BLOOD COUNT 5448580 MPV 11.1 fL 11/12/2012 COMPLETE BLOOD COUNT 2519810 ROLAND % 63.8 % 11/12/2012 COMPLETE BLOOD COUNT 9657818 LY % 28.2 % 11/12/2012 COMPLETE BLOOD COUNT 2790134 MON % 6.6 % 11/12/2012 COMPLETE BLOOD COUNT 0453093 EOS % 1.2 % 11/12/2012 COMPLETE BLOOD COUNT 7074776 BASO % 0.2 % 11/12/2012 COMPLETE BLOOD COUNT 8805490 RDW 14.9 % 11/12/2012 COMPLETE BLOOD COUNT 2390576 ABS ROLAND 3.83 10e9/L 11/12/2012 COMPLETE BLOOD COUNT 9480870 ABS LYMPH 1.69 10e9/L 11/12/2012 COMPLETE BLOOD COUNT 3990851 ABS MONO 0.40 10e9/L 11/12/2012 COMPLETE BLOOD COUNT 7375747 ABS EOS 0.07 10e9/L 11/12/2012 COMPLETE BLOOD COUNT 4230207 ABS BASO 0.01 10e9/L 11/12/2012 COMPLETE BLOOD COUNT 0837689 RDW-SD 44.8 fL 11/12/2012 HEMOGLOBIN A1C (GLYCOSYLATED) 9224190 A1C HPLC 13212-2 5.1 % 06/06/2012 RA FACTOR 19763 RA FACTOR <20.0 IU/ML 06/06/2012 ANTINUCLEAR ANTIBODY SCREEN 23434 FERDINAND SCR <1:80 06/06/2012 INSULIN SERUM 31502 INSU PETER 12.2 mU/L 06/06/2012 COMPREHENSIVE METABOLIC 42965 AST 13 U/L 06/05/2012 COMPREHENSIVE METABOLIC 05029 ALT 13 IU/L 06/05/2012 COMPREHENSIVE METABOLIC 90475 BUN 21 MG/DL 06/05/2012 COMPREHENSIVE METABOLIC 64075 ALBUMIN 4.7 GM/DL 06/05/2012 COMPREHENSIVE METABOLIC 72685 CHLORIDE 106 MMOL/L 06/05/2012 COMPREHENSIVE METABOLIC 71826 BILI TOT 0.6 MG/DL 06/05/2012 COMPREHENSIVE METABOLIC 32993 ALK PHOS 61 U/L 06/05/2012 COMPREHENSIVE METABOLIC 38638 SODIUM 139 MMOL/L 06/05/2012 COMPREHENSIVE METABOLIC 98982 CREATININE 0.71 MG/DL 06/05/2012 COMPREHENSIVE METABOLIC 04598 CALCIUM 9.8 MG/DL 06/05/2012 COMPREHENSIVE METABOLIC 20863 POTASSIUM 4.6 MMOL/L 06/05/2012 COMPREHENSIVE METABOLIC 77307 PROT TOT 6.7 GM/DL 06/05/2012 COMPREHENSIVE METABOLIC 63705 Glucose 104 MG/DL 06/05/2012 COMPREHENSIVE METABOLIC 67774 BICARB 24 MMOL/L 06/05/2012 COMPREHENSIVE METABOLIC 52213 ANION GAP 9 MEQ/L 06/05/2012 GFR CALC 8965889 GFR AA >60 ML/MIN 06/05/2012 GFR CALC 6869868 GFR NON -AA >60 ML/MIN 06/05/2012 LIPID GROUP [address] 46 MG/DL 06/05/2012 LIPID GROUP 63566 TRIG 77 MG/DL 06/05/2012 LIPID GROUP 99962 TEST L DL 135 MG/DL 06/05/2012 LIPID GROUP 45058 CHOL 196 MG/DL 06/05/2012 LIPID GROUP 91437 RCHOL/ HDL 4.26 RATIO 06/05/2012 COMPLETE BLOOD COUNT 7098776 WBC 5.9 10e9/L 06/05/2012 COMPLETE BLOOD COUNT 0566520 RBC 5.02 10e12/L 3 COMPLETE BLOOD COUNT 7470589 HGB 13.9 g/dL 06/05/2012 COMPLETE BLOOD COUNT 4498049 HCT DET 41.5 % 06/05/2012 COMPLETE BLOOD COUNT 8760661 MCV 82.7 fL 06/05/2012 COMPLETE BLOOD COUNT 6711522 MCH 27.7 pg 06/05/2012 COMPLETE BLOOD COUNT 2836671 MCHC 33.5 g/dL 06/05/2012 COMPLETE BLOOD COUNT 7785442 PLT 323 10e9/L 06/05/2012 COMPLETE BLOOD COUNT 6839127 MPV 11.3 fL 06/05/2012 COMPLETE BLOOD COUNT 7665384 ROLAND % 70.6 % 06/05/2012 COMPLETE BLOOD COUNT 6170719 LY % 21.4 % 06/05/2012 COMPLETE BLOOD COUNT 2395796 MON % 6.4 % 06/05/2012 COMPLETE BLOOD COUNT 8068195 EOS % 1.3 % 06/05/2012 COMPLETE BLOOD COUNT 0869440 BASO % 0.3 % 06/05/2012 COMPLETE BLOOD COUNT 4466562 RDW 14.9 % 06/05/2012 COMPLETE BLOOD COUNT 5459289 ABS ROLAND 4.17 10e9/L 06/05/2012 COMPLETE BLOOD COUNT 3597239 ABS LYMPH 1.26 10e9/L 06/05/2012 COMPLETE BLOOD COUNT 6274857 ABS MONO 0.38 10e9/L 06/05/2012 COMPLETE BLOOD COUNT 3031370 ABS EOS 0.08 10e9/L 06/05/2012 COMPLETE BLOOD COUNT 7544116 ABS BASO 0.02 10e9/L 06/05/2012 COMPLETE BLOOD COUNT 2627124 RDW-SD 44.8 fL 06/05/2012 THYROID STIMULATING HORMONE 07616 TSH 1.684 uIU/ML 3 FREE T4 01746 FREE T4 1.19 NG/DL 06/05/2012 BASIC METABOLIC PANEL 85108 Glucose 100 MG/DL 04/13/2011 BASIC METABOLIC PANEL 53709 BUN 18 MG/DL 04/13/2011 BASIC METABOLIC PANEL 45658 CREATININE 0.66 MG/DL 04/13/2011 BASIC METABOLIC PANEL 39988 SODIUM 138 MMOL/L 04/13/2011 BASIC METABOLIC PANEL 76857 BICARB 26 MMOL/L 04/13/2011 BASIC METABOLIC PANEL 76926 POTASSIUM 4.0 MMOL/L 04/13/2011 BASIC METABOLIC PANEL 84608 ANION GAP 9 MEQ/L 04/13/2011 BASIC METABOLIC PANEL 46727 CHLORIDE 103 MMOL/L 04/13/2011 BASIC METABOLIC PANEL 32958 CALCIUM 9.6 MG/DL 04/13/2011 FSH 8589797 FSH 4.6 MIU/ML 04/13/2011 GFR CALC 6818722 GFR AA >60 ML/MIN 04/13/2011 GFR CALC 3758986 GFR NON -AA >60 ML/MIN 04/13/2011 ESTRADIOL SERUM 29560 ES TRADIOL 113 PG/ML 04/13/2011 LH 80554 LH 3.7 MIU/ML 04/13/2011 THYROID STIMULATING HORMONE 14537 TSH 1.995 uIU/ML 1 LIPID GROUP [address] 40 MG/DL 12/21/2010 LIPID GROUP 21709 TRIG 66 MG/DL 12/21/2010 LIPID GROUP 64061 TEST L DL 132 MG/DL 12/21/2010 LIPID GROUP 49422 CHOL 185 MG/DL 12/21/2010 LIPID GROUP 61052 RCHOL/ HDL 4.63 RATIO 12/21/2010 THYROID STIMULATING HORMONE 63515 TSH 1.876 uIU/ML 1 COMPLETE BLOOD COUNT 77619 WBC 7.0 10e9/L 12/21/2010 COMPLETE BLOOD COUNT 62026 RBC 4.28 10e12/L 1 COMPLETE BLOOD COUNT 79445 HGB 12.1 g/dL 12/21/2010 COMPLETE BLOOD COUNT 87151 HCT DET 36.1 % 12/21/2010 COMPLETE BLOOD COUNT 96754 MCV 84.3 fL 12/21/2010 COMPLETE BLOOD COUNT 82615 MCH 28.3 pg 12/21/2010 COMPLETE BLOOD COUNT 68529 MCHC 33.5 g/dL 12/21/2010 COMPLETE BLOOD COUNT 97748 PLT 306 10e9/L 12/21/2010 COMPLETE BLOOD COUNT 31890 MPV 10.4 fL 12/21/2010 COMPLETE BLOOD COUNT 92307 ROLAND % 69.9 % 12/21/2010 COMPLETE BLOOD COUNT 18080 LY % 22.2 % 12/21/2010 COMPLETE BLOOD COUNT 20404 MON % 5.7 % 12/21/2010 COMPLETE BLOOD COUNT 25889 EOS % 1.9 % 12/21/2010 COMPLETE BLOOD COUNT 05821 BASO % 0.3 % 12/21/2010 COMPLETE BLOOD COUNT 09957 RDW 14.0 % 12/21/2010 COMPLETE BLOOD COUNT 32947 ABS ROLAND 4.89 10e9/L 12/21/2010 COMPLETE BLOOD COUNT 17169 ABS LYMPH 1.55 10e9/L 12/21/2010 COMPLETE BLOOD COUNT 56212 ABS MONO 0.40 10e9/L 12/21/2010 COMPLETE BLOOD COUNT 00198 ABS EOS 0.13 10e9/L 12/21/2010 COMPLETE BLOOD COUNT 05889 ABS BASO 0.02 10e9/L 12/21/2010 COMPLETE BLOOD COUNT 66553 RDW-SD 41.5 fL 12/21/2010 FREE T4 12352 FREE T4 1.02 NG/DL 12/21/2010 COMPREHENSIVE METABOLIC 48780 AST 11 U/L 12/21/2010 COMPREHENSIVE METABOLIC 56574 ALT 9 IU/L 12/21/2010 COMPREHENSIVE METABOLIC 17903 BUN 16 MG/DL 12/21/2010 COMPREHENSIVE METABOLIC 50527 ALBUMIN 4.0 GM/DL 12/21/2010 COMPREHENSIVE METABOLIC 12876 CHLORIDE 106 MMOL/L 12/21/2010 COMPREHENSIVE METABOLIC 24856 BILI TOT 0.3 MG/DL 12/21/2010 COMPREHENSIVE METABOLIC 82759 ALK PHOS 59 U/L 12/21/2010 COMPREHENSIVE METABOLIC 41461 SODIUM 139 MMOL/L 12/21/2010 COMPREHENSIVE METABOLIC 98948 CREATININE 0.66 MG/DL 12/21/2010 COMPREHENSIVE METABOLIC 91880 CALCIUM 8.9 MG/DL 12/21/2010 COMPREHENSIVE METABOLIC 75823 POTASSIUM 4.2 MMOL/L 12/21/2010 COMPREHENSIVE METABOLIC 35860 PROT TOT 6.5 GM/DL 12/21/2010 COMPREHENSIVE METABOLIC 62042 Glucose 101 MG/DL 12/21/2010 COMPREHENSIVE METABOLIC 04018 BICARB 28 MMOL/L 12/21/2010 COMPREHENSIVE METABOLIC 61808 ANION GAP 5 MEQ/L 12/21/2010 GFR CALC 1308493 GFR AA >60 ML/MIN 12/21/2010 GFR CALC 9632355 GFR NON -AA >60 ML/MIN 12/21/2010 LIPID GROUP [address] 40 MG/DL 12/10/2009 LIPID GROUP 91960 TRIG 98 MG/DL 12/10/2009 LIPID GROUP 97742 TEST L DL 128 MG/DL 12/10/2009 LIPID GROUP 02484 CHOL 188 MG/DL 12/10/2009 LIPID GROUP 61443 RCHOL/ HDL 4.70 RATIO 12/10/2009 DF 8526635 POLY 74 % 12/09/2009 DF 6798214 BAND 0 % 12/09/2009 DF 7198167 LYMP 21 % 12/09/2009 DF 3887655 MONO 3 % 12/09/2009 DF 7535811 EOS 2 % 12/09/2009 DF 7414082 BASO 0 % 12/09/2009 GFR CALC 8121048 GFR AA >60 ML/MIN 12/09/2009 GFR CALC 8655441 GFR NON -AA >60 ML/MIN 12/09/[address] 4883587 WBC 8.7 10e9/L 12/09/[address] 5880495 RBC 4.78 10e12/L 12/09/[address] 1160124 HGB 13.2 g/dL 12/09/[address] 3619471 HCT DET 40.2 % 12/09/[address] 7016916 MCV 84.1 fL 12/09/[address] 0845557 MCH 27.6 pg 12/09/[address] 2372[address] MCHC 32.8 g/dL 12/09/[address] 3359929 PLT 374 10e9/L 12/09/[address] 0768876 MPV 11.0 fL 12/09/[address] 4836[address] ROLAND % 70.2 % 12/09/[address] 0016292 RDW 14.4 % 12/09/[address] 8939236 LY % 22.4 % 12/09/[address] 8568513 RDW-SD 44.7 fL 12/09/[address] 9144997 MON % 6.2 % 12/09/[address] 8921036 EOS % 1.0 % 12/09/[address] 5394707 BASO % 0.2 % 12/09/[address] 1950452 ABS ROLAND 6.08 10e9/L 12/09/[address] 2405763 ABS LY MPH 1.94 10e9/L 12/09/[address] 7339931 ABS MO NO 0.54 10e9/L 12/09/[address] 7044492 ABS EOS 0.09 10e9/L 12/09/[address] 3385678 ABS BA SO 0.02 10e9/L 12/09/2009 THYROID STIMULATING HORMONE 45945 TSH 1.916 uIU/ML 0 COMPREHENSIVE METABOLIC 08496 AST 13 U/L 12/09/2009 COMPREHENSIVE METABOLIC 94902 ALT 13 IU/L 12/09/2009 COMPREHENSIVE METABOLIC 24901 BUN 18 MG/DL 12/09/2009 COMPREHENSIVE METABOLIC 11425 ALBUMIN 4.3 GM/DL 12/09/2009 COMPREHENSIVE METABOLIC 68160 CHLORIDE 106 MMOL/L 12/09/2009 COMPREHENSIVE METABOLIC 62788 BILI TOT 0.5 MG/DL 12/09/2009 COMPREHENSIVE METABOLIC 21232 ALK PHOS 69 U/L 12/09/2009 COMPREHENSIVE METABOLIC 10331 SODIUM 137 MMOL/L 12/09/2009 COMPREHENSIVE METABOLIC 74460 CREATININE 0.69 MG/DL 12/09/2009 COMPREHENSIVE METABOLIC 00997 CALCIUM 9.1 MG/DL 12/09/2009 COMPREHENSIVE METABOLIC 10733 POTASSIUM 4.5 MMOL/L 12/09/2009 COMPREHENSIVE METABOLIC 01612 PROT TOT 6.9 GM/DL 12/09/2009 COMPREHENSIVE METABOLIC 54632 Glucose 97 MG/DL 12/09/2009 COMPREHENSIVE METABOLIC 14121 BICARB 20 MMOL/L 12/09/2009 COMPREHENSIVE METABOLIC 45105 ANION GAP 11 MEQ/L 12/09/2009 Review of Systems System Result Effective Dates Constitutional No night sweats 07/20/2018 Constitutional No [...] Allergy/Immunology No food allergy 12/06/2010 Neurologic headache 12/0 05/2009 Respiratory apneic events 04/14/2010 Constitutional fatigue [...] 12/06/[address] blue, flaking and mildly red-discussed follow up as [...] Procedures Procedure Codes Date ROUTINE VENIPUNCTURE CPT-4: 58116 06/29/2018 ASSAY OF FREE THYROXINE CPT-4: 43089 06/29/2018 ASSAY THYROID STIM H ORMONE CPT-4: 55784 06/29/2018 COMPREHEN METABOLIC PANEL CPT-4: 41885 06/29/2018 COMPLETE CBC W/AUTO DIFF WBC CPT-4: 29157 06/29/2018 LIPID PANEL CPT-4: 47336 06/29/2018 TDAP VACCINE 7 YRS/> IM CPT-4: 92327 06/11/2018 IMMUNIZATION ADMIN CPT- 4: 68757 06/11/2018 ROUTINE VENIPUNCTURE CPT-4: 87945 04/05/2017 ASSAY THYROID STIM H ORMONE CPT-4: 12190 04/05/2017 COMPREHEN METABOLIC PANEL CPT-4: 21441 04/05/2017 COMPLETE CBC W/AUTO DIFF WBC CPT-4: 95954 04/05/2017 LIPID PANEL CPT-4: 66792 04/05/2017 ASSAY OF BLOOD/URIC ACID CPT-4: 23566 04/05/2017 THER/PROPH/DIAG INJ SC/IM CPT-4: 39727 02/12/2016 TRIAMCINOLONE ACET I [place] NOS CPT-4: J3301 02/12/2016 DEXAMETHASONE SODIUM PHOS CPT-4: J1100 02/12/2016 PRESCRIP TRANSMIT A ERX SY CPT-4: G8553 10/01/2015 URINALYSIS NONAUTO W /O SCOPE CPT-4: 93496 10/01/2015 URINE CULTURE/ COLON Y COUNT CPT-4: 47128 10/01/2015 OCCULT BLOOD FECES CPT- 4: 53213 08/04/2015 SPECIMEN HANDLING OF FICE-LAB CPT-4: 28767 08/04/2015 URINALYSIS NONAUTO W /O SCOPE CPT-4: 21922 05/27/2015 URINE CULTURE/ COLON Y COUNT CPT-4: 45030 05/27/2015 THER/PROPH/DIAG INJ SC/IM CPT-4: 42914 03/10/2015 KETOROLAC TROMETHAMI NE INJ CPT-4: J1885 03/10/2015 ROUTINE VENIPUNCTURE CPT-4: 00669 07/29/2014 ASSAY OF FREE THYROXINE CPT-4: 17216 07/29/2014 ASSAY THYROID STIM H ORMONE CPT-4: 16868 07/29/2014 COMPREHEN METABOLIC PANEL CPT-4: 43445 07/29/2014 COMPLETE CBC W/AUTO DIFF WBC CPT-4: 97065 07/29/2014 LIPID PANEL CPT-4: 38950 07/29/2014 ASSAY OF IRON CPT-4: 92403 07/29/2014 ASSAY OF FERRITIN CPT-4: 43444 07/29/2014 VITAMIN B 12 FOLIC ACID CPT-4: 16760|07406 07/29/2014 URINALYSIS NONAUTO W /O SCOPE CPT-4: 75099 05/31/2013 URINE CULTURE/ COLON Y COUNT CPT-4: 53209 05/31/2013 INFLUENZA ASSAY W/OPTIC CPT-4: 59370 05/27/2013 THER/PROPH/DIAG INJ SC/IM CPT-4: 78248 05/27/2013 METHYLPREDNISOLONE 4 0 MG INJ CPT-4: J1030 05/27/2013 TRIAMCINOLONE ACET I [place] NOS CPT-4: J3301 05/27/2013 ROUTINE VENIPUNCTURE CPT-4: 28911 02/26/2013 ASSAY OF FREE THYROXINE CPT-4: 66457 02/26/2013 ASSAY THYROID STIM H ORMONE CPT-4: 30046 02/26/2013 COMPREHEN METABOLIC PANEL CPT-4: 31466 02/26/2013 COMPLETE CBC W/AUTO DIFF WBC CPT-4: 87578 02/26/2013 LIPID PANEL CPT-4: 07996 02/26/2013 ROUTINE VENIPUNCTURE CPT-4: 56574 11/12/2012 COMPLETE CBC W/AUTO DIFF WBC CPT-4: 55700 11/12/2012 MYCOPLASMA ANTIBODY, IFA CPT-4: 33145Q5 11/12/2012 ROUTINE VENIPUNCTURE CPT-4: 16095 06/05/2012 ASSAY OF FREE THYROXINE CPT-4: 50461 06/05/2012 ASSAY THYROID STIM H ORMONE CPT-4: 66208 06/05/2012 COMPREHEN METABOLIC PANEL CPT-4: 45346 06/05/2012 COMPLETE CBC W/AUTO DIFF WBC CPT-4: 49809 06/05/2012 LIPID PANEL CPT-4: 22010 06/05/2012 ANTINUCLEAR ANTIBODIES CPT-4: 51649 06/05/2012 RHEUMATOID FACTOR QUANT CPT-4: 99486 06/05/2012 ASSAY OF INSULIN CPT-4: 86408 06/05/2012 A1C GLYCOSYLATED HEM OGLOBIN TEST CPT-4: 58115 06/05/2012 [facility] CPT-4: 24094 12/21/2011 ROUTINE VENIPUNCTURE CPT-4: 05792 04/13/2011 ASSAY THYROID STIM H ORMONE CPT-4: 05254 04/13/2011 METABOLIC PANEL TOTA L CA CPT-4: 30532 04/13/2011 FSH CPT-4: 4290162 04/13/2011 LH CPT-4: 90729 04/13/2011 ASSAY OF ESTRADIOL CPT- 4: 46970 04/13/2011 URINALYSIS NONAUTO W /O SCOPE CPT-4: 84495 02/04/2011 URINE CULTURE/ COLON Y COUNT CPT-4: 92712 02/04/2011 ROUTINE VENIPUNCTURE CPT-4: 67026 12/21/2010 ASSAY OF FREE THYROXINE CPT-4: 00868 12/21/2010 ASSAY THYROID STIM H ORMONE CPT-4: 59583 12/21/2010 COMPLETE CBC W/AUTO DIFF WBC CPT-4: 92729 12/21/2010 COMPREHEN METABOLIC PANEL CPT-4: 30903 12/21/2010 LIPID PANEL CPT-4: 39514 12/21/2010 OCCULT BLOOD FECES CPT- 4: 01524 12/06/2010 ROUTINE VENIPUNCTURE CPT-4: 22288 12/09/2009 CBC WITH MANUAL DIFF ERENTIAL CPT-4: 27094|12491 12/09/2009 COMPREHEN METABOLIC PANEL CPT-4: 00415 12/09/2009 LIPID PANEL CPT-4: 24472 12/09/2009 ASSAY THYROID STIM H ORMONE CPT-4: 89428 12/09/2009 SPECIMEN HANDLING OF FICE-LAB CPT-4: 60208 12/08/2009 THER/PROPH/DIAG INJ SC/IM CPT-4: 98034 09/01/2009 KETOROLAC TROMETHAMI NE INJ CPT-4: J1885 09/01/2009 URINALYSIS NONAUTO W /O SCOPE CPT-4: 42028 08/26/2009 Vital Signs Date Vital 07/20/2018 Blood Pressure 1: 118/80 Code: 8480-6 Heart Rate 1: 68 bpm Respiratory Rate: 20 bpm SpO2: 97% Temperature: 36.6 (C ) / 97.9 (F) Weight: 191 lbs 8 oz 06/29/2018 Heigh t: 5'2" 06/11/2018 Blood Pressure 1: 106/68 Code: 8480-6 BMI: 36.2 Code: 25421-4 Heart Rate 1: 72 bpm Height: 5'2" Respiratory Rate: 20 bpm SpO2: 97% Temperature: 37.1 (C ) / 98.8 (F) Weight: 198 lbs 04/05/2017 Blood Pressure 1: 114/78 Code: 8480-6 BMI: 35.5 Code: 73032-9 Heart Rate 1: 68 bpm Height: 5'2" Respiratory Rate: 20 bpm SpO2: 96% Temperature: 36.9 (C ) / 98.5 (F) Weight: 194 lbs 02/12/2016 Blood Pressure 1: 126/78 Code: 8480-6 BMI: 31.8 Code: 35756-5 Heart Rate 1: 60 bpm Height: 5'2" Respiratory Rate: 24 bpm SpO2: 96% Temperature: 36.2 (C ) / 97.1 (F) Weight: 174 lbs 01/25/2016 Blood Pressure 1: 128/78 Code: 8480-6 BMI: 31.6 Code: 26585-1 Heart Rate 1: 76 bpm Height: 5'2" Respiratory Rate: 20 bpm SpO2: 98% Temperature: 36.5 (C ) / 97.7 (F) Weight: 173 lbs 10/01/2015 Blood Pressure 1: 108/58 Code: 8480-6 BMI: 32.9 Code: 50492-5 Heart Rate 1: 62 bpm Height: 5'2" Respiratory Rate: 20 bpm SpO2: 98% Temperature: 36.2 (C ) / 97.1 (F) Weight: 180 lbs 08/04/2015 Blood Pressure 1: 126/78 Code: 8480-6 BMI: 33.8 Code: 53089-7 Heart Rate 1: 72 bpm Height: 5'2" Respiratory Rate: 20 bpm Temperature: 36.9 (C ) / 98.5 (F) Weight: 185 lbs 05/27/2015 Blood Pressure 1: 132/80 Code: 8480-6 BMI: 36.2 Code: 69396-4 Heart Rate 1: 56 bpm Height: 5'2" Respiratory Rate: 20 bpm Temperature: 37.0 (C ) / 98.6 (F) Weight: 198 lbs 03/10/2015 Blood Pressure 1: 136/82 Code: 8480-6 BMI: 36.2 Code: 08291-6 Heart Rate 1: 88 bpm Height: 5'2" Respiratory Rate: 20 bpm Temperature: 37.0 (C ) / 98.6 (F) Weight: 198 lbs 06/30/2014 Blood Pressure 1: 124/78 Code: 8480-6 BMI: 35.8 Code: 21590-1 Heart Rate 1: 84 bpm Height: 5'2" Respiratory Rate: 20 bpm Temperature: 36.8 (C ) / 98.2 (F) Weight: 196 lbs 08/12/2013 Blood Pressure 1: 114/72 Code: 8480-6 BMI: 35.8 Code: 64683-9 Heart Rate 1: 80 bpm Height: 5'2" [...] 1: 132/86 Code: 8480-6 BMI: 34.9 Code: 63618-0 Heart Rate 1: 72 bpm Height: 5'2" Respiratory Rate: 20 bpm Temperature: 36.9 (C ) / 98.4 (F) Weight: 191 lbs 11/29/2012 Blood Pressure 1: 126/82 Code: 8480-6 BMI: 34.4 Code: 00775-2 Heart Rate 1: 84 bpm Height: 5'2" Respiratory Rate: 20 bpm Temperature: 36.7 (C ) / 98.0 (F) Weight: 188 lbs 11/12/2012 Blood Pressure 1: 110/62 Code: 8480-6 BMI: 34.8 Code: 04465-4 Heart Rate 1: 64 bpm Height: 5'2" Temperature: 36.7 (C ) / 98.1 (F) Weight: 190 lbs 07/30/2012 Blood Pressure 1: 124/82 Code: 8480-6 BMI: 36.0 Code: 53007-0 Heart Rate 1: 84 bpm Height: 5'2" Respiratory Rate: 20 bpm Temperature: 36.5 (C ) / 97.7 (F) Weight: 197 lbs 06/04/2012 Blood Pressure 1: 118/70 Code: 8480-6 BMI: 36.2 Code: 50457-7 Heart Rate 1: 64 bpm Height: 5'2" Temperature: 37.1 (C ) / 98.7 (F) Weight: 198 lbs 12/21/2011 Blood Pressure 1: 132/80 Code: 8480-6 BMI: 33.3 Code: 47809-2 Heart Rate 1: 64 bpm Height: 5'2" Respiratory Rate: 20 bpm Temperature: 36.6 (C ) / 97.8 (F) Weight: 182 lbs 10/07/2011 Blood Pressure 1: 128/72 Code: 8480-6 BMI: 34.4 Code: 49267-1 Heart Rate 1: 80 bpm Height: 5'2" Respiratory Rate: 20 bpm Temperature: 36.8 (C ) / 98.2 (F) Weight: 188 lbs 09/05/2011 Blood Pressure 1: 106/72 Code: 8480-6 BMI: 33.3 Code: 21897-3 Heart Rate 1: 76 bpm Height: 5'2" Respiratory Rate: 20 bpm Temperature: 36.6 (C ) / 97.9 (F) Weight: 182 lbs 04/28/2011 Blood Pressure 1: 110/70 Code: 8480-6 BMI: 34.4 Code: 88840-3 Heart Rate 1: 60 bpm Height: 5'2" Temperature: 37.0 (C ) / 98.6 (F) Weight: 188 lbs 04/13/2011 Blood Pressure 1: 106/84 Code: 8480-6 BMI: 34.4 Code: 84763-5 Heart Rate 1: 80 bpm Height: 5'2" Respiratory Rate: 20 bpm Temperature: 36.6 (C ) / 97.8 (F) Weight: 188 lbs 02/04/2011 Blood Pressure 1: 108/76 Code: 8480-6 BMI: 33.7 Code: 32976-5 Heart Rate 1: 74 bpm Height: 5'2" Weight: 184 lbs 12/06/2010 Blood Pressure 1: 120/72 Code: 8480-6 BMI: 33.3 Code: 67352-7 Heart Rate 1: 76 bpm Height: 5'2" [...] 1: 118/66 Code: 8480-6 BMI: 32.6 Code: 26362-4 Heart Rate 1: 68 bpm Height: 5'2" Temperature: 36.7 (C ) / 98.1 (F) Weight: 178 lbs 09/01/2009 Blood Pressure 1: 118/76 Code: 8480-6 BMI: 34.6 Code: 46984-9 Heart Rate 1: 76 bpm Height: 5'2" [...] norvasc as well apneic events Quality ac [place] 04/14/2010 just had sleep study whic h [...] Encounters Encounter Performer Loca tion Codes Date ([id number]) OFFICE/OUTPA TIENT VISIT EST Diagnosis: Acute bronchitis, unspecified[ICD10: J20.9] Diagnosis: Acute recurrent maxillary sinusitis[ICD10: J01.01] Nicol ACEVESQUELINE MpRajni CHAGO [employer] CPT-4: 58639 07/20/2018 ([id number]) NURSE/OUTPAT IENT VISIT EST Diagnosis: Encounter for general adult medical examination without abnormal findings[ICD10: Z00.00] Diagnosis: Mixed hyperlipidemia[ICD10: E78.2] Caren Robertchandrikacara CAREN MpRajni ROBERT CEE [employer] CPT-4: 55997 06/29/2018 ([id number]) PREV VISIT E ST AGE 40-64 Diagnosis: Encounter for general adult medical examination without abnormal findings[ICD10: Z00.00] Diagnosis: Encounter for screening mammogram for malignant neoplasm of breast[ICD10: Z12.31] Diagnosis: Essential (primary) hypertension[ICD10: I10] Diagnosis: Migraine with aura, not intractable, without status migrainosus[ICD10: G43.109] Diagnosis: VACCINE FOR TDAP[ICD10: Z23] Caren Chago CAREN MpRajni ARANZA [employer] CPT-4: 66078 06/11/2018 ([id number]) PREV VISIT E ST AGE 40-64 Diagnosis: [...] Diagnosis: Pain in unspecified joint[ICD10: M25.50] Caren Chago CAREN MpRajni ROBERT CEE [employer] CPT-4: 58951 04/05/2017 ([id number]) OFFICE/OUTPA TIENT VISIT EST Diagnosis: Acute upper respiratory infection, unspecified[ICD10: J06.9] Diagnosis: Acute maxillary sinusitis, unspecified[ICD10: J01.00] Chiarajosé luis ANDERS Kabongo [facility] CPT-4: 34091 02/12/2016 ([id number]) OFFICE/OUTPA TIENT VISIT EST Diagnosis: Acute upper respiratory infection, unspecified[ICD10: J06.9] Diagnosis: Acute maxillary sinusitis, unspecified[ICD10: J01.00] Chiara ANDERS DO [facility] CPT-4: 25672 01/25/2016 ([id number]) OFFICE/OUTPA TIENT VISIT EST Diagnosis: Urinary tract infection, site not specified[ICD10: N39.0] Chiara ANDERS DO [facility] CPT-4: 83578 10/01/2015 ([id number]) PREV VISIT E ST AGE 40-64 Diagnosis: Encounter for gynecological examination (general) (routine) without abnormal findings[ICD10: Z01.419] Diagnosis: Encounter for general adult medical examination without abnormal findings[ICD10: Z00.00] Diagnosis: Migraine, unspecified, not intractable, without status migrainosus[ICD10: G43.909] Diagnosis: Essential (primary) hypertension[ICD10: I10] Caren CEE [employer] CPT-4: 37990 08/04/2015 ([id number]) OFFICE/OUTPA TIENT VISIT EST Diagnosis: Menopausal and female climacteric states[ICD10: N95.1] Diagnosis: Dysuria[ICD10: R30.0] Caren ANDERS Kabongo [facility] CPT-4: 16513 05/27/2015 OFFICE/OUTPATIENT SIT EST Diagnosis: Persistent migraine 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 cerebral infarction, intractable, with status migrainosus[ICD10: G43.511] Diagnosis: Unspecified convulsions[ICD10: R56.9] Caren CEE Kabongo [facility] CPT-4: 66065 03/10/2015 ([id number]) OFFICE/OUTPA TIENT VISIT EST Diagnosis: HYPERLIPIDEMIA NEC/NOS[ICD9: 272.4] Diagnosis: HYPERTENSION[ICD9: 401.9] Diagnosis: MALAISE AND FATIGUE[ICD9: 780.79] Diagnosis: ANEMIA NOS[ICD9: 285.9] Caren ANDERS [facility] CPT-4: 90310 07/29/2014 ([id number]) PREV VISIT E ST AGE 40-64 Diagnosis: ROUTINE MEDICAL EXAM[ICD9: V70.0] Diagnosis: HYPERTENSION[ICD9: 401.9] Diagnosis: MIGRAINE NOS/NOT INTRCBL[ICD9: 346.90] Diagnosis: GERD[ICD9: 530.81] Caren GARBERLINE MpRajni CHAGO [facility] CPT-4: 04509 06/30/2014 ([id number]) OFFICE/OUTPA TIENT VISIT EST Diagnosis: ALLERGIC RHINITIS[ICD9: 477.9] Diagnosis: DERMATITIS NOS[ICD9: 692.9] Caren GARBERLINE MpRajni CHAGO [facility] CPT-4: 96788 08/12/2013 OFFICE/OUTPATIENT SIT EST Diagnosis: HEMATURIA NOS[ICD9: 599.70] Diagnosis: COUGH[ICD9: 786.2] Diagnosis: BRONCHITIS, ACUTE[ICD9: 466.0] Diagnosis: URINARY TRACT INFECTION[ICD9: 599.0] Lyndsey MichelleJennaamerica GARBERMOSHE Rivas Obed [employer] [facility] CPT-4: 18646 05/31/2013 OFFICE/OUTPATIENT SIT EST Diagnosis: COUGH[ICD9: 786.2] Diagnosis: SINUSITIS, ACUTE[ICD9: 461.9] Diagnosis: FEBRILE ILLNESS[ICD9: 780.60] Lyndsey MichelleJennaamerica GARBERLINE MpRajni CHAGO [facility] CPT-4: 59593 05/27/2013 ([id number]) OFFICE/OUTPA TIENT VISIT EST Diagnosis: DERMATITIS NOS[ICD9: 692.9] Diagnosis: Tinea cruris[ICD9: 110.3] Caren Robertchandrikacara CAREN [facility] CPT-[facility]: 01207 02/26/2013 OFFICE/OUTPATIENT SIT EST Diagnosis: Rash[ICD9: 782.1] Anni Rivas [facility] CPT-[facility]: 31299 11/29/2012 OFFICE/OUTPATIENT SIT EST Diagnosis: COUGH[ICD9: 786.2] Diagnosis: SINUSITIS, ACUTE[ICD9: 461.9] Diagnosis: PHARYNGITIS, ACUTE[ICD9: 462] Caren CHAUDHARY MpRajni ROBERTCHANDRIKARED [facility] CPT-4: 80034 11/12/2012 OFFICE/OUTPATIENT SIT EST Diagnosis: COUGH[ICD9: 786.2] Diagnosis: SINUSITIS, ACUTE[ICD9: 461.9] Diagnosis: Myalgia[ICD9: 729.1] Caren ANDERS [facility] CPT-4: 02685 07/30/2012 ([id number]) OFFICE/OUTPA TIENT VISIT EST Diagnosis: JOINT PAIN-UNSPEC[ICD9: 719.40] Diagnosis: Rash and nonspecific skin eruption[ICD9: 782.1] Caren CEE [facility] CPT-4: 97103 06/05/2012 OFFICE/OUTPATIENT SIT EST Diagnosis: Rash[ICD9: 782.1] Diagnosis: Joint pain[ICD9: 719.40] Caren [facility] CPT-4: 65291 06/04/2012 ([id number]) PREV VISIT E ST AGE 40-64 Diagnosis: ROUTINE GYNE EXAM[ICD9: V72.31] Diagnosis: ROUTINE MEDICAL EXAM[ICD9: V70.0] Diagnosis: MIGRAINE NOS/NOT INTRCBL[ICD9: 346.90] Caren CEE [facility] CPT-4: 26040 12/21/2011 OFFICE/OUTPATIENT SIT EST Diagnosis: Hemorrhoid[ICD9: 455.6] Diagnosis: Constipation[ICD9: 564.00] Diagnosis: Rash[ICD9: 782.1] Caren ANDERS [facility] CPT-4: 29225 10/07/2011 OFFICE/OUTPATIENT SIT EST Diagnosis: HYPERTENSION[ICD9: 401.9] Diagnosis: MIGRAINE NOS/NOT INTRCBL[ICD9: 346.90] Diagnosis: DIZZINESS/VERTIGO[ICD9: 780.4] Diagnosis: EUSTACHIAN TUBE DYSFUNCTION[ICD9: 381.81] Diagnosis: Plantar warts[ICD9: 078.12] Caren ANDERS [facility] CPT-4: 97560 09/05/2011 OFFICE/OUTPATIENT SIT EST Diagnosis: SINUSITIS, ACUTE[ICD9: 461.9] Diagnosis: COUGH[ICD9: 786.2] Diagnosis: PHARYNGITIS, ACUTE[ICD9: 462] Diagnosis: DIARRHEA[ICD9: 787.91] Caren ANDERS DO [facility] CPT-4: 17865 04/28/2011 OFFICE/OUTPATIENT SIT EST Diagnosis: Finger pain[ICD9: 729.5] Diagnosis: Nasal pain[ICD9: 478.19] Diagnosis: MIGRAINE NOS/NOT INTRCBL[ICD9: 346.90] Diagnosis: Metrorrhagia[ICD9: 626.6] Caren COBIANER DO [facility] CPT-4: 82210 04/13/2011 OFFICE/OUTPATIENT SIT EST Diagnosis: Frequent urination[ICD9: 788.41] Caren COBIANER DO [facility] CPT-4: 76419 02/04/2011 PREV VISIT EST AGE 4 0-64 Anni PERSONNDER DO [facility] CPT-4: 11836 12/06/2010 SPECIMEN HANDLING Anni PERSONNDER DO [facility] CPT-4: 70549 12/06/2010 ([id number]) OFFICE/OUTPA TIENT VISIT, EST Caren CHAUDHARY SRajni ORE NDER DO [facility] CPT-4: 39903 04/14/2010 ([id number]) OFFICE/OUTPA TIENT VISIT, EST Caren CHAUDHARY SRajni [facility] CPT-4: 88517 02/16/2010 ([id number]) OFFICE/OUTPA TIENT VISIT, EST Caren CHAUDHARY S. [facility] CPT-4: 15884 02/03/2010 ([id number]) OFFICE/OUTPA TIENT VISIT, EST Caren CHAUDHARY S. ORE NDER DO [facility] CPT-4: 51456 01/27/2010 ([id number]) OFFICE/OUTPA TIENT VISIT, EST Caren [employer] CPT-4: 94836 01/25/2010 ([id number]) PREV VISIT, EST, AGE 40-64 Anni ANDERS DO [employer] CPT-4: 57326 12/08/2009 ([id number]) OFFICE/OUTPA TIENT VISIT, EST Caren CEE DO [employer] CPT-4: 62600 09/01/2009 Plan of Care Planned Activity Notes C odes Status Date Visit Diagnosis Plan: Acute bronchitis, unspecified Discussion: Prednisone and zpack- take as directed. Moist air- humidifier. Avoid hot, dry air. Fluids and rest encouraged. Albuterol inhaler as needed for shortness of breath. FU with worsening symptoms or no improvement following treatment regimen. Patient states understanding of all instruction. ICD-9 : 466.0 ICD-10 : J20.9 07/20/2018 Appointment: Nicol Arroyo [facility] [place] [address] 07/20/2018 Patient Education: prednisone- [employer] C[employer] [id number] Completed 07/20/2018 Patient Education: [facility] - [employer] - Ventolin HFA - 18-64 - Dynamic Portal ID Completed 07/20/2018 Patient Education: azithromycin- [employer] C[employer]on [phone] [id number] Completed 07/20/2018 Appointment: Caren Anders WPtel: [address] [place] [address] LAB 06/29/2018 Visit Diagnosis Plan: Encounter for scre ening mammogram for malignant neoplasm of breast Discussion: Mammogram ordered ICD-9 : V76.12 ICD-10 : Z12.31 06/11/2018 Visit Diagnosis Plan: Encounter for [facility] adult medical examination without abnormal findings [...] G43.109 06/11/2018 Appointment: Caren Anders WPtel: [phone] [id number] Annual Well Visit 06/11/2018 Patient Education: Valtrex- [employer] C[employer]on [id number] Completed 06/11/2018 Patient Education: mupirocin calcium- Op [employer] Coupon [id number] Completed 06/11/2018 Visit Diagnosis Plan: Encounter for [...] adult medical examination without abnormal findings Discussion: Fatimicki lab drawn Update colonoscopy ICD-9 : V70.9 ICD-10 : Z00.00 04/05/2017 Appointment: Caren Anders WPtel: [phone] [id number] Annual Well Visit 04/05/2017 Patient Education: Patient Medication Summary Completed 04/05/2017 Care Plan: Referral Order SNOMED-CT : [id number] Pending 04/05/2017 Patient Education: Patient Medication Summary Completed 08/02/2016 Care Plan: MAMMOGRAM SCREENING LOINC : 46940-0 Pending 08/02/2016 Visit Plan: Injection as above [...] Follow up PRN 02/12/2016 Appointment: [facility]an [phone] [id number] 02/10 confirmed~sl ACUTE ILLNESS 02/12/2016 Patient Education: Patient Medication Summary Completed 02/12/2016 Visit Plan: Rxs as above OTC meds r eviewed - avoid decongestants Rest, fluids, vicks, humidifier, etc Follow up PRN 01/25/2016 Visit Plan: Rxs as above OTC meds r eviewed - avoid decongestants Rest, fluids, vicks, humidifier, etc Follow up PRN 01/25/2016 Appointment: Chiara Phelan [address] ACUTE ILLNESS 01/25/2016 Patient Education: Patient [...] up PRN 10/01/2015 Appointment: Chiara Phelan [address] ACUTE ILLNESS 10/01/2015 Patient Education: Patient Medication Summary Completed 10/01/2015 Visit Plan: Obtain lab results Pap done Mammogram ordered Patient awaiting on Dr. Cuello to restart botox for migraines 08/04/2015 Appointment: Caren Anders WPtel: [address] [place] [address] 08/02confirmed-sp Annual Well Visit 08/04/2015 Patient Education: Patient Medication Summary Completed 08/04/2015 Care Plan: MAMMOGRAM SCREENING LOINC : 33786-1 Ordered 08/04/2015 Patient Education: Patient Medication Summary Completed 07/29/2015 Care Plan: CBC Ordered 07/29/2015 Visit Plan: Discussed likely perime nopause Will observe through July and then at [facility] with fasting lab including hormone levels If bleeding returns will proceed with pelvic US Check into chiropractor for ma nipulation for right low back/hip pain 05/27/2015 Visit Plan: Discussed likely perime nopause Will observe through July and up then at [facility] with fasting lab including hormone levels If bleeding returns will proceed with pelvic US Check into chiropractor for ma nipulation for right low back/hip pain 05/27/2015 Appointment: Caren Anders WPtel: [address] [place], [place] [id number] 05/26/15 vm cn 05/26/15 appt confirmed c n ACUTE ILLNESS 05/27/19 Patient Education: Patient Medication Summary Completed 05/27/2015 Referral: Ignacio Esposito WPtel: [facility] [address] [id number] [place] Referral Initiated 04/07/2015 Referral: Caren Anders WPtel: [address] [place], [place] [id number] 03/26/15 Arrival time 9:30 am Procedure 9:45 am. @ [facility] [address] [facility] Matthew 307 Come sleep deprived(4 hours or less) clean hair, no product in hair, no caffeen Initiated 03/26/2015 Visit Plan: Toradol now with compaz ine po when gets home Proceed with updated EEG/neurology evaluation--discussed may need to go on antiseizure meds and drop out of migraine study No driving for 6mos Discussed w [facility] Dr. Cuello at [facility] in [place]--he wants to see her in next 1-2weeks 03/10/2015 Appointment: Caren Anders WPtel: [address] [place], [place] [phone] ACUTE ILLNESS 03/10/2015 Patient Education: Patient Medication Summary Completed 03/10/2015 Appointment: Caren Anders WPtel: [address] [place], [place] [id number] LAB 07/29/2014 Patient Education: Patient Medication Summary Completed 07/29/2014 Visit Plan: Check Fasting lab Mammo gram ordered Pap next year Lamisil for 3mos with monthly LFTs 06/30/2014 Appointment: Caren Anders WPtel: [address] [place], [place] [phone] Annual Well Visit 06/30/2014 Patient Education: Patient Medication Summary Completed 06/30/2014 Appointment: Caren Anders WPtel: [address] [place], [place] [phone] Annual Well Visit 06/18/2014 Appointment: Caren Anders WPtel: [address] [place], [place] [phone] ACUTE ILLNESS 06/03/2014 Appointment: Lyndsey Thorpe WPtel: [address] [place], [place] [id number] 02/05 ACUTE ILLNESS 02/06/2014 Visit Plan: Benadryl 25mg q HS Clar itin 10mg q AM Prednisone for 1week Call in 1week on cough and rash 08/12/2013 Appointment: Caren Anders WPtel: [address] [place], [place] [phone] 08/09 FOLLOW UP 08/12/2013 Patient Education: Patient Medication Summary Completed 08/12/2013 Visit Plan: To [facility] for CXR PA and Lateral Added Macrobid to current antibiotics. Recommended referal to Dr Alejo's office for resistant UTI's 05/31/2013 Appointment: Lyndsey Thorpe WPtel: [address] [place], [place] [phone] ACUTE ILLNESS 05/31/2013 Patient Education: Patient Medication Summary Completed 05/31/2013 Visit Plan: Kenalog 40 mg / Depo Me droll 40 mg IM now Complete antibiotics. 05/27/2013 Appointment: Lyndsey Thorpe WPtel: [address] [place], [place] [phone] ACUTE ILLNESS 05/27/2013 Patient Education: Patient Medication Summary Completed 05/27/2013 Visit Plan: Lamisil for 3mos Nystat in/TAC topically Check fasting lab 02/26/2013 Appointment: Caren Anders WPtel: [address] [place], [place] [phone] 02/25 ACUTE ILLNESS 02/26/2013 Patient Education: Patient [...] Mycoplasma infection) 11/29/2012 Appointment: Anni Brennan WPtel: [address] [place] [address] FOLLOW UP 11/29/2012 Patient Education: Patient Medication Summary Completed 11/29/2012 Visit Plan: CBC and mycoplasma lab draw. Levaquin and medrol dose pack with codeine/guiaf cough syrup. 11/12/2012 Appointment: Anni Brennan WPtel: [address] [place] [address] ACUTE ILLNESS 11/12/2012 Patient Education: Patient Medication Summary Completed 11/12/2012 Visit Plan: Azithromyacin and medro l dose pack. Will focus on hydration and rest. Pt. will notify if symptoms worsen or do not improve. 07/30/2012 Appointment: Anni Brennan WPtel: [address] [place] [address] ACUTE ILLNESS 07/30/2012 Patient Education: Patient Medication Summary Completed 07/30/2012 Appointment: Caren Anders WPtel: [address] [place] [address] LAB 06/05/2012 Patient Education: Patient Medication Summary [...] from scratching. 06/04/2012 Appointment: Anni Brennan WPtel: [address] [place] [address] ACUTE ILLNESS 06/04/2012 Patient Education: Patient Medication Summary Completed 06/04/2012 Visit Plan: Pap done Mammo ordered Pt has started botox for Migraines--next shots end of this month Fasting lab in 12/21/2011 Appointment: Caren Anders WPtel: [address] [place], [place] [phone] [place] PAP 12/21/2011 Patient Education: Patient Medication Summary Completed 12/21/2011 Visit Plan: Encouraged fluids and c ontinued use of stool softener. Pt. reports long standing concerns with constipation. Discussed that will likely proceed with colonoscopy. Referral to Dr. Long. Will apply beta methasone to rash and use rectal foam and topical dibucaine. 10/07/2011 Appointment: Anni Brennan WPtel: [address] [place] [address] ACUTE ILLNESS 10/07/2011 Patient Education: Patient Medication [...] for now 09/05/2011 Appointment: Caren Anders WPtel: [address] [place] [address] FOLLOW UP 09/05/2011 Patient Education: Patient Medication Summary Completed 09/05/2011 Visit Plan: imodium. Discussed the importance of hydration. Phoned Cefuroxime and codeine/guiaf into [facility]. Pt. will notify if symptoms worsen. 04/28/2011 Appointment: Anni Brennan WPtel: [address] [place] [address] ACUTE ILLNESS 04/28/2011 Patient Education: Patient Medication Summary Completed 04/28/2011 Visit Plan: Use Aleve BID Observe n ose and finger Check Chem 7, estradiol, FSH, LH, TSH 04/13/2011 Appointment: Caren Anders WPtel: [address] [place], [place] [phone] ACUTE ILLNESS 04/13/2011 Patient Education: Patient Medication Summary Completed 04/13/2011 Visit Plan: Septra ds. and Pyridium . Urine sent for culture. Pt. will be notified of culture results. Pt will notify if symptoms are worsening. Will consider lab and imaging studies if symptoms worsen. 02/04/2011 Appointment: Anni Brennan WPtel: [address] [place] [address] ACUTE ILLNESS 02/04/2011 Patient Education: Patient Medication Summary Completed 02/04/2011 Appointment: Caren Anders WPtel: [address] [place] [address] LAB 12/21/2010 Patient Education: Patient Medication Summary Completed 12/21/2010 Visit Plan: Dec 13. appnt with [facility] specialist. will ask about EEG at next appnt. Fasting labs: CBC, CMP, TSH, Free T4 and Lipids. Discussed slight discoloration above rt. eyebrow. Will consider surgical refer ral if area does not resolve. Mammo scheduled. 12/06/2010 Appointment: Anni Brennan WPtel: [address] [place] [address] PAP 12/06/2010 Patient Education: Patient Medication Summary [...] colon cancer 04/14/2010 Appointment: Caren Anders WPtel: [address] [place], [place] [phone] FOLLOW UP 04/14/2010 Patient Education: Patient Medication Summary Completed 04/14/2010 Appointment: Caren Anders WPtel: [address] [place], [place] [phone] [place] LAB 03/17/2010 Visit Plan: Increase Topamax to 50m g BID Cont Flexeril See Neurology next week 02/16/2010 Appointment: Caren Anders WPtel: [address] [place] [address] FOLLOW UP 02/16/2010 Patient Education: Patient Medication Summary Completed 02/16/2010 Visit Plan: Pt will seek re-eval if symptoms worsen. 02/03/2010 Appointment: Anni Brennan WPtel: [address] [place] [address] ACUTE ILLNESS 02/03/2010 Patient Education: Patient Medication Summary Completed 02/03/2010 Visit Plan: Start Topamax for proph ylaxis See Neurology Discussed triggers such as chocolate Start Cipro as ordered May try Midrin and Compazine as ordered Off work rest of week 01/27/2010 Appointment: Caren Anders WPtel: [address] [place] [address] ER Follow UP 01/27/2010 Patient Education: Patient Medication Summary Completed 01/27/2010 Visit Plan: Check CT head Suspect c omplex migraine vs TIA--esequiel await CT results 01/25/2010 Appointment: Caren Anders WPtel: [address] [place] [address] ACUTE ILLNESS 01/25/2010 Patient Education: Patient Medication Summary Completed 01/25/2010 Appointment: Caren Anders WPtel: [address] [place], [place] [phone] LAB 12/09/2009 Patient Education: Patient Medication Summary Completed 12/09/2009 Visit Plan: Claudia will come in [facility] for Lipids, CBC, CMP and TSH. Mammo is scheduled with [facility]. 12/08/2009 Appointment: Anni Brennan WPtel: [address] [place], [place] [id number] PAP 12/08/2009 Patient Education: Patient Medication Summary Completed 12/08/2009 Visit Plan: Add Macrobid Toradol gi weston Zipsor 25mg QID for 5 days OMT done Call in 2days on back 09/01/2009 Appointment: [facility] Anders [facility]el[phone] [facility] [facility] 09/01/2009 Patient Education: Patient Medication Summary Completed 09/01/2009 Appointment: Caren Anders WPtel: [phone] [id number] [facility] 08/26/2009 Patient Education: Patient Medication Summary Completed 08/26/2009 Referral: Partha Long WPtel: [phone] [id number] [place] Referral sent. Dr. Coburn's office will [...] Discussed with Dr. Cuello at clinic in [place]--he wants to see her in next 1-2weeks . Use Aleve BID Observe nose and finger Check Chem 7, estradiol, FSH, LH, TSH . Pt will seek re-ev al if [...] back/hip pain . To [facility] r CXR PA and Lateral Added Macrobid [...] Cuello to restart botox for migraines . Office dip abnorma l Culture pending [...] CMP and TSH. Mammo is scheduled with [facility]. . Septra ds. and Py ridium. Urine [...] codeine/guiaf cough syrup. . Dec 13. [facility]. will ask about EEG at [...] use rectal foam and topical dibucaine. . Injection as above Rx for levaquin - pt reports she tolerates well Continue supportive care Follow up PRN . Injection as above Rx for levaquin - pt reports she tolerates well Continue supportive care Follow up PRN
[2019-10-11] MEDS ORDERED: TETANUS,DIPTH,PERTUSS P/F (BOOSTRIX) 0.5 ML VIAL IM ONE (18:45)
[2019-10-11] MEDS ORDERED: L.E.T. SYRINGE 5 ML TOP ONE (18:45)
[2019-10-11] MEDS ORDERED: LIDOCAINE 1% INJ 20 ML 20 ML VIAL INJ ONE (18:45)
--- OUTSIDE RECORDS SUMMARY | 2019-10-11 18:47 | XMS REPORT | CCD ---
Author Author Claudia Anders D.O. Organization [facility] Address [address] [place] [address] Phone Care Team Providers Care Hematology Oncology Consultant Name Role Phone Caren Anders D.O., PP Unavailable CCM Unavailable Summary Purpose Interface Exchange Insurance Providers Payer name Policy type / Coverage type Covered libertarian ID Effective Begin Date Effective End Date Blue Cross Blue Shield Blue Cross/Bl ue Shield [id number] 2018 Un known Family history Father Diagnosis Age At Onset Congestive heart failure Unknown Cancer Unknown Diabetes mellitus Type 2 Unknown Social History Social History Element Codes Description Effective Dates Tobacco history SNOMED CT: 3574725 Former smoker 02/03/2015 Allergies, Adverse Reactions, Alerts [...] Date Stop Date Sta tus Fill Instructions atenolol 25 mg tablet RxNorm: 115648 Tablet(s) TAKE ONE TABLET BY MOUTH DAILY , NEEDS APPT. BEFORE FURTHER REFILLS 01/08/2019 02/06/2019 Active atenolol 25 mg tablet RxNorm: 011436 Tablet(s) TAKE ONE TABLET BY MOUTH DAILY , NEEDS APPT. BEFORE FURTHER REFILLS 12/31/2018 01/07/2019 Inactive atenolol 25 mg tablet RxNorm: 874831 TAKE ONE TABLET BY MOUTH DAILY, NEEDS AP PT. BEFORE FURTHER REFILLS 12/14/2018 12/31/2018 Inactive tizanidine 4 mg tablet RxNorm: 845179 TAKE ONE TABLET BY MOUTH EVERY 8 HOURS A S NEEDED FOR MUSCLE SPASMS 11/16/2018 12/25/2018 Inactive Naprosyn 500 mg tablet RxNorm: 070452 1 Tablet(s) PO BID 10/01/2018 01/28/2019 Active Maxalt 10 mg tablet RxNorm: 450636 1 Tablet(s) PO at headache onset. May re peat in 2 hours if headache remains. Max of 2/24hr 10/01/2018 11/29/2018 Inactive atenolol 25 mg tablet RxNorm: 718547 Tablet(s) TAKE ONE TABLET BY MOUTH DAILY . 10/01/2018 12/13/2018 In active atenolol 25 mg tablet RxNorm: 296105 TAKE ONE TABLET BY MOUTH DAILY. NEED APPOINTMENT BEFORE FURTHER REFILLS. 09/24/2018 09/30/2018 Inactive atenolol 25 mg tablet RxNorm: 499808 TAKE ONE TABLET BY MOUTH DAILY, NEEDS AP PT. BEFORE FURTHER REFILLS 09/11/2018 09/23/2018 Inactive Naprosyn 500 mg tablet RxNorm: 107177 1 Tablet(s) PO BID Due for annual labs a nd appointment 09/11/2018 09/30/2018 Inactive atenolol 25 mg tablet RxNorm: 128228 TAKE ONE TABLET BY MOUTH DAILY, NEEDS AP PT. BEFORE FURTHER REFILLS 08/29/2018 09/10/2018 Inactive doxycycline hyclate 100 mg tablet RxNorm: 8975518 1 Tablet(s) PO BID 07/27/2018 08/05/2018 Inactive doxycycline hyclate 100 mg tablet RxNorm: 6685890 1 Tablet(s) PO BID 07/27/2018 07/26/2018 Inactive Ventolin HFA 90 mcg/ actuation aerosol inhaler RxNorm: 8538336 2 Puff(s) INH Q6H 07/20/2018 08/18/2018 In active prednisone 20 mg tablet RxNorm: 170751 take 2 tabs for 3 days, then 1 tab for 3 days 07/20/2018 07/25/2018 Inactive azithromycin 250 mg tablet RxNorm: 336468 Take 2 tabs today and one tab days 2-5 07/20/2018 07/25/2018 In active z-pack atenolol 25 mg tablet RxNorm: 059827 TAKE ONE TABLET BY MOUTH DAILY, NEEDS AP PT. BEFORE FURTHER REFILLS 07/13/2018 08/26/2018 Inactive mupirocin 2 % topica l cream RxNorm: 253365 Application TOP BID 06/11/2018 No Stop Date Active Valtrex 1 gram tablet RxNorm: 849085 1 Tablet(s) PO BID 06/11/2018 06/20/2018 Inactive atenolol 25 mg tablet RxNorm: 423973 1 Tablet(s) PO QD NEEDS APPOINTMENT BEFO RE FURTHER REFILLS 05/14/2018 07/12/2018 Inactive Naprosyn 500 mg tablet RxNorm: 658769 1 Tablet(s) PO BID Due for annual labs a nd appointment 04/12/2018 05/11/2018 Inactive Zantac 300 mg tablet RxNorm: 799207 TAKE ONE TABLET BY MOUTH EVERY NIGHT AT BEDTIME 04/09/2018 07/07/2018 Inactive tizanidine 4 mg tablet RxNorm: 639841 TAKE ONE TABLET BY MOUTH EVERY 8 HOURS A S NEEDED FOR MUSCLE SPASMS 02/20/2018 04/20/2018 Inactive Maxalt 10 mg tablet RxNorm: 529952 Tablet(s) TAKE ONE TABLET BY MOUTH NE EDED FOR HEADACHE 01/09/2018 03/09/2018 Inactive Naprosyn 500 mg tablet RxNorm: 444114 Tablet(s) TAKE ONE TABLET BY MOUTH TWICE A DAY 01/08/2018 04/12/2018 Inactive atenolol 25 mg tablet RxNorm: 975891 1 Tablet(s) PO QD 01/08/2018 05/14/2018 Inactive Naprosyn 500 mg tablet RxNorm: 454143 TAKE ONE TABLET BY MOUTH TWICE A DAY 12/10/2017 01/08/2018 In active tizanidine 4 mg tablet RxNorm: 290622 1 Tablet(s) PO Q8H as needed for muscle spasm 11/27/2017 11/26/2017 Inactive Maxalt 10 mg tablet RxNorm: 180008 TAKE ONE TABLET BY MOUTH NEEDED FOR H EADACHE 11/13/2017 01/09/2018 Inactive Naprosyn 500 mg tablet RxNorm: 390593 TAKE ONE TABLET BY MOUTH TWICE A DAY 11/13/2017 12/09/2017 In active atenolol 25 mg tablet RxNorm: 158227 1 Tablet(s) PO QD 09/06/2017 01/08/2018 Inactive Naprosyn 500 mg tablet RxNorm: 179117 1 Tablet(s) PO BID 09/04/2017 11/02/2017 Inactive Maxalt 10 mg tablet RxNorm: 166963 1 Tablet(s) PO as needed for headache 08/07/2017 11/12/2017 In active Naprosyn 500 mg tablet RxNorm: 654356 1 Tablet(s) PO BID 07/07/2017 09/04/2017 Inactive Naprosyn 500 mg tablet RxNorm: 989542 1 Tablet(s) PO BID TAKE ONE TABLET BY MO UTH TWICE A DAY 06/08/2017 07/07/2017 Inactive tizanidine 4 mg tablet RxNorm: 114881 1 Tablet(s) PO Q8H as needed for muscle spasm 05/10/2017 11/27/2017 Inactive atenolol 25 mg tablet RxNorm: 252510 1 Tablet(s) PO QD 05/10/2017 09/06/2017 Inactive Maxalt 10 mg tablet RxNorm: 599283 1 Tablet(s) PO as needed for headache 05/10/2017 08/06/2017 In active atenolol 25 mg tablet RxNorm: 943653 1 Tablet(s) PO QD LAST REFILL---NEEDS UP DATED LAB AND APPOINTMENT 04/04/2017 05/03/2017 Inactive Zantac 300 mg tablet RxNorm: 080029 Tablet(s) TAKE ONE TABLET BY MOUTH EVERY NIGHT AT BEDTIME 04/03/2017 07/31/2017 Inactive atenolol 25 mg tablet RxNorm: 440842 1 Tablet(s) PO QD LAST REFILL---NEEDS UP DATED LAB AND APPOINTMENT 03/02/2017 04/04/2017 Inactive atenolol 25 mg tablet RxNorm: 084328 1 Tablet(s) PO QD LAST REFILL---NEEDS UP DATED LAB AND APPOINTMENT 02/01/2017 05/10/2017 Inactive Naprosyn 500 mg tablet RxNorm: 012872 1 Tablet(s) PO BID TAKE ONE TABLET BY MO UTH TWICE A DAY 01/02/2017 06/08/2017 Inactive atenolol 25 mg tablet RxNorm: 074910 1 Tablet(s) PO QD Need Labs and appointm ent 12/26/2016 02/01/2017 In active Naprosyn 500 mg tablet RxNorm: 594841 1 Tablet(s) PO BID TAKE ONE TABLET BY MO UTH TWICE A DAY 12/05/2016 01/02/2017 Inactive Naprosyn 500 mg tablet RxNorm: 846440 Tablet(s) TAKE ONE TABLET BY MOUTH TWICE A DAY 11/07/2016 12/05/2016 Inactive Naprosyn 500 mg tablet RxNorm: 003631 Tablet(s) TAKE ONE TABLET BY MOUTH TWICE A DAY 10/06/2016 11/07/2016 Inactive Naprosyn 500 mg tablet RxNorm: 381189 TAKE ONE TABLET BY MOUTH TWICE A DAY 09/04/2016 10/03/2016 In active Naprosyn 500 mg tablet RxNorm: 899850 TAKE ONE TABLET BY MOUTH TWICE A DAY 07/01/2016 08/29/2016 In active Naprosyn 500 mg tablet RxNorm: 473435 TAKE ONE TABLET BY MOUTH TWICE A DAY 04/27/2016 06/25/2016 In active Zantac 300 mg tablet RxNorm: 678344 TAKE ONE TABLET BY MOUTH EVERY NIGHT AT BEDTIME 03/09/2016 04/03/2017 Inactive Levaquin 500 mg tablet RxNorm: 123600 1 Tablet(s) PO QD 02/12/2016 02/18/2016 Inactive azithromycin 250 mg tablet RxNorm: 969834 2 Tablet(s) PO on day one then 1 tab on days 2-5 01/25/2016 01/24/2016 Inactive Medrol (Camilo) 4 mg ta blets in a dose pack RxNorm: 141451 Take as directed 01/25/2016 04/04/2017 In active Naprosyn 500 mg tablet RxNorm: 575170 1 Tablet(s) PO BID 01/15/2016 04/13/2016 Inactive Brisdelle 7.5 mg cap violeta RxNorm: 7065276 1 Capsule(s) PO QHS 12/10/2015 04/04/2017 Inactive atenolol 25 mg tablet RxNorm: 441901 TAKE ONE TABLET BY MOUTH DAILY 12/04/2015 12/26/2016 In active Maxalt 10 mg tablet RxNorm: 909311 1 Tablet(s) PO as needed for headache 10/05/2015 05/09/2017 In active Bactrim DS 800 mg-16 0 mg tablet RxNorm: 956019 1 Tablet(s) PO BID 10/01/2015 10/07/2015 Inactive Zantac 300 mg tablet RxNorm: 823169 Tablet(s) TAKE ONE TABLET BY MOUTH EVERY NIGHT AT BEDTIME 10/01/2015 11/29/2015 Inactive atenolol 25 mg tablet RxNorm: 659266 TAKE ONE TABLET BY MOUTH DAILY 06/09/2015 08/07/2015 In active Naprosyn 500 mg tablet RxNorm: 628371 TAKE ONE TABLET BY MOUTH TWICE A DAY 05/29/2015 01/15/2016 In active Zantac 300 mg tablet RxNorm: 893016 Tablet(s) TAKE ONE TABLET BY MOUTH EVERY NIGHT AT BEDTIME 03/30/2015 10/01/2015 Inactive Compazine 10 mg tablet RxNorm: 310861 1 Tablet(s) PO TID as needed for nausea 03/10/2015 05/26/2015 In active Prevacid 30 mg capsu le,delayed release RxNorm: 034634 Capsule(s) TAKE ONE C APSULE BY MOUTH ONCE A DAY 12/19/2014 05/17/2015 Inactive Naprosyn 500 mg tablet RxNorm: 387726 1 Tablet(s) PO BID 12/02/2014 03/01/2015 Inactive Zantac 300 mg tablet RxNorm: 648487 TAKE ONE TABLET BY MOUTH EVERY NIGHT AT BEDTIME 09/18/2014 03/30/2015 Inactive Naprosyn 500 mg tablet RxNorm: 004877 1 Tablet(s) PO BID 09/04/2014 12/02/2014 Inactive atenolol 25 mg tablet RxNorm: 188119 1 Tablet(s) PO QD 07/17/2014 03/09/2015 Inactive Zantac 300 mg tablet RxNorm: 581027 1 Tablet(s) PO QHS 06/30/2014 09/17/2014 Inactive Lamisil 250 mg tablet RxNorm: 202016 1 Tablet(s) PO QD 06/30/2014 09/27/2014 Inactive Treximet 85 mg-500 m g tablet RxNorm: 820226 Tablet(s) PO PRN as n eeded 06/30/2014 03/09/2015 In active Prevacid 30 mg capsu le,delayed release RxNorm: 471003 TAKE ONE CAPSULE BY M OUTH ONCE A DAY 06/16/2014 12/19/2014 Inactive Treximet 85 mg-500 m g tablet RxNorm: 594015 Tablet(s) PO PRN as n eeded 06/06/2014 06/29/2014 In active Pepcid 20 mg tablet RxNorm: 265779 1 Tablet(s) PO QHS 03/19/2014 06/29/2014 Inactive [SAVINGS FOR UNINSURED PATIENTS -- BIN:[id number], PCN: [id number], Group: [id number], ID# [id number], Process claim through MedImp[employer], for questions: . THIS IS NOT INSURANCE.] atenolol 25 mg tablet RxNorm: 704484 1 Tablet(s) PO QD 01/15/2014 07/17/2014 Inactive Pepcid 20 mg tablet RxNorm: 331215 1 Tablet(s) PO QHS 12/23/2013 12/22/2013 Inactive Pepcid 20 mg tablet RxNorm: 067969 1 Tablet(s) PO QHS 12/23/2013 03/19/2014 Inactive [SAVINGS FOR UNINSURED PATIENTS -- BIN:[id number], PCN: [id number], Group: [id number], ID# [id number], Process claim through MedImp[employer], for questions: . THIS IS NOT INSURANCE.] Prevacid 30 mg capsu le,delayed release RxNorm: 264561 1 Capsule(s) PO QD 12/23/2013 06/15/2014 In active [SAVINGS FOR UNINSURED PATIENTS -- BIN:0 [id number], PCN: [id number], Group: [id number], ID# [id number], Process claim through [employer]Imp[employer], for questions: . THIS IS NOT INSURANCE.] loratadine 10 mg tablet RxNorm: 929931 TAKE ONE TABLET BY MOUTH EVERY MORNING 09/09/2013 04/06/2014 In active nystatin-triamcinolo ne 100,000 unit/g-0.1 % topical cream RxNorm: 3535965 1 Application TOP QHS to rash 08/22/2013 06/29/2014 Inactive prednisone 20 mg tablet RxNorm: 544428 1 Tablet(s) PO BID 08/12/2013 08/18/2013 Inactive loratadine 10 mg tablet RxNorm: 563161 1 Tablet(s) PO QAM 08/12/2013 09/08/2013 Inactive Treximet 85 mg-500 m g tablet RxNorm: 296719 Tablet(s) PO PRN 07/22/2013 07/21/2013 Inactive atenolol 25 mg tablet RxNorm: 056781 1 Tablet(s) PO QD 07/22/2013 01/15/2014 Inactive Prevacid 30 mg capsu le,delayed release RxNorm: 240662 1 Capsule(s) PO BID 07/22/2013 12/22/2013 In active nitrofurantoin macro crystal 100 mg capsule RxNorm: 019354 1 Capsule(s) PO BID 05/31/2013 06/06/2013 In active albuterol sulfate HF A 90 mcg/actuation aerosol inhaler RxNorm: 515693 2 Puff(s) INH QID 05/31/2013 06/13/2013 Inactive azithromycin 250 mg tablet RxNorm: 726869 2 Tablet(s) PO QD 05/27/2013 06/02/2013 Inactive Prevacid 30 mg capsu le,delayed release RxNorm: 401680 1 Capsule(s) PO BID 03/20/2013 07/21/2013 In active Lamisil 250 mg tablet RxNorm: 614524 1 Tablet(s) PO QD 02/26/2013 05/26/2013 Inactive betamethasone eloy te 0.1 % Topical Cream RxNorm: 968394 1 Application TOP BID 11/29/2012 12/12/2012 In active Diflucan 100 mg tablet RxNorm: 764711 1 Tablet(s) PO QD 11/29/2012 12/08/2012 Inactive nystatin 100,000 uni t/gram Topical Powder RxNorm: 396882 1 Gram(s) TOP BID belinda ly to affected areas twice daily 11/29/2012 12/08/2012 Inactive Medrol (Camilo) 4 mg ta blets in a dose pack RxNorm: 234007 Tablet(s) PO as direc nico 11/12/2012 02/25/2013 In active Levaquin 750 mg tablet RxNorm: 248900 1 Tablet(s) PO QD antibiotic 11/12/2012 11/21/2012 Inactive Prevacid 30 mg capsu le,delayed release RxNorm: 100686 1 Capsule(s) PO BID 09/17/2012 03/15/2013 In active azithromycin 250 mg tablet RxNorm: 988306 2 Tablet(s) PO QD 07/30/2012 08/06/2012 Inactive nystatin 100,000 uni t/g Ointment RxNorm: 605424 1 Gram(s) TOP BID belinda ly to affected area twice daily 06/21/2012 06/30/2012 Inactive nystatin 100,000 uni t/g Ointment RxNorm: 122323 1 Gram(s) TOP BID belinda ly to affected area twice daily 06/04/2012 06/13/2012 Inactive Prevacid 30 mg capsu le,delayed release RxNorm: 493493 1 Capsule(s) PO BID 03/01/2012 08/27/2012 In active Omnaris 50 mcg Nasal Darby RxNorm: 742296 2 Darby NASAL QD each nostril 12/21/2011 03/09/2015 In active betamethasone eloy te 0.1 % Topical Cream RxNorm: 579282 1 Application TOP BID 10/07/2011 10/20/2011 In active dibucaine 1 % Rectal Ointment RxNorm: 596343 1 RTL TID 10/07/2011 10/16/2011 Inactive Proctofoam 1 % Topic al Foam RxNorm: 377020 1 TOP BID 10/07/2011 10/16/2011 Inactive Treximet 85 mg-500 m g Tab RxNorm: 850733 Tablet(s) PO Take 1 a t headache onset and may repeat 1 in two hours if needed 09/05/2011 No Stop Date Active Prevacid 30 mg capsu le,delayed release RxNorm: 816750 1 Capsule(s) PO BID 08/30/2011 02/25/2012 In active Flexeril 5 mg tablet RxNorm: 994102 1-2 Tablet(s) PO QHS 08/05/2011 06/29/2014 Inactive prn spasm cefuroxime axetil 50 0 mg Tab RxNorm: 408933 1 Tablet(s) PO BID 04/28/2011 05/07/2011 Inactive Flexeril 5 mg Tab RxNorm: 627079 1-2 Tablet(s) PO QHS 04/20/2011 08/05/2011 Inactive prn spasm Prevacid 30 mg Capsu le, delayed release RxNorm: 619673 1 Capsule(s) PO BID 02/23/2011 08/30/2011 In active Prevacid 30 mg Cap RxNorm: 987239 1 Capsule(s) PO QD 02/21/2011 02/22/2011 Inactive Pyridium 100 mg Tab RxNorm: 2080432 1 Tablet(s) PO TID 02/04/2011 02/05/2011 Inactive will turn urine orange/red. Septra DS 800 mg-160 mg Tab RxNorm: 071417 1 Tablet(s) PO BID 02/04/2011 02/08/2011 Inactive lisinopril 10 mg Tab RxNorm: 639909 1 Tablet(s) PO QD 12/06/2010 01/04/2011 Inactive amitriptyline 10 mg Tab RxNorm: 393971 2 Tablet(s) PO QD 12/06/2010 01/04/2011 Inactive Treximet 85 mg-500 m g Tab RxNorm: 312551 1 Tablet(s) PO 12/02/2010 09/05/2011 Inactive at H A onset, may repeat i po in 2hrs if CHAUHAN remains lisinopril 20 mg Tab RxNorm: 334189 1 Tablet(s) PO QD 09/10/2010 12/06/2010 Inactive Prevacid 30 mg Cap RxNorm: 004438 1 Capsule(s) PO BID 08/09/2010 02/21/2011 Inactive Flexeril 5 mg Tab RxNorm: 568024 1-2 Tablet(s) PO QHS prn spasm 04/14/2010 04/20/2011 In active Topamax 50 mg Tab RxNorm: 912388 1 Tablet(s) PO BID 02/16/2010 04/13/2010 Inactive Topamax 50 mg Tab RxNorm: 798554 1/2 Tablet(s) PO QHS for 1wk then 1 po Q HS 02/15/2010 02/15/2010 In active Cefdinir 300 mg Cap RxNorm: 901863 1 Capsule(s) PO BID One tablet PO twice daily for 10 days. 02/03/2010 02/12/2010 Inactive Topamax 50 mg Tab RxNorm: 718186 1/2 Tablet(s) PO QHS for 1wk then 1 po Q HS 01/27/2010 02/14/2010 In active Flexeril 5 mg Tab RxNorm: 251505 1 Tablet(s) PO TID prn spasm 01/25/2010 02/15/2010 Inactive Macrobid 100 mg Cap RxNorm: 6277984 1 Capsule(s) PO BID 09/01/2009 09/07/2009 Inactive Prevacid 30 mg Cap RxNorm: 165939 1 Capsule(s) PO BID 09/01/2009 09/30/2009 Inactive Flexeril 5 mg Tab RxNorm: 605043 1 Tablet(s) PO TID prn spasm 09/01/2009 09/30/2009 Inactive lisinopril 20 mg Tab RxNorm: 129490 1 Tablet(s) PO QD 08/31/2009 09/10/2010 Inactive atenolol 25 mg Tab RxNorm: 273867 1 Tablet(s) PO QD No Start Date 07/30/2012 Inactive magnesium 100 mg tablet RxNorm: 1 Tablet(s) PO QD No Start Date Active Calcium with Vitamin D 600 mg-400 unit Tab RxNorm: 866568 1 Tablet(s) PO QD No Start Date Active Aspirin 81 mg Tab RxNorm: 763661 1 Tablet(s) PO QD No Start Date Active Brisdelle 7.5 mg cap violeta RxNorm: 0087437 1 Capsule(s) PO QHS No Start Date 12/09/2015 Inactive Prevacid 30 mg Cap RxNorm: 745878 1 Capsule(s) PO QD No Start Date 02/20/2011 Inactive Ultram 50 mg Tab RxNorm: 661330 2 Tablet(s) PO QID prn headache No Start Date 04/13/2010 Inactive tizanidine 4 mg tablet RxNorm: 791929 1 Tablet(s) PO Q8H as needed for muscle spasm No Start Date 05/09/2017 Inactive nystatin-triamcinolo ne 100,000 unit/g-0.1 % topical cream RxNorm: 8575205 1 Application TOP QHS to rash No Start Date 08/21/2013 Inactive Imitrex 100 mg tablet RxNorm: 670987 1 Tablet(s) PO at CHAUHAN onset-September repeat in 6hours as needed No Start Date 08/03/2015 Inactive Treximet 85 mg-500 m g Tab RxNorm: 657592 1 Tablet(s) PO at CHAUHAN onset, may repeat i po in 2hrs if CHAUHAN remains No Start Date 12/02/2010 Inactive alprazolam 0.25 mg t ablet RxNorm: 656854 1 Tablet(s) PO QPM No Start Date 08/03/2015 Inactive amitriptyline 25 mg Tab RxNorm: 784707 1 Tablet(s) PO QAM No Start Date 12/06/2010 Inactive amitriptyline 10 mg Tab RxNorm: 818013 Tablet(s) PO Take 4 tablets by mouth 1 w lumbee before period and week of period and 3 tablets other 2 weeks of month No Start Date 09/04/2011 Inactive Omnaris 50 mcg Nasal Darby RxNorm: 006588 2 Darby NASAL QD each nostril No Start Date 12/20/2011 Inactive sertraline 25 mg tablet RxNorm: 326236 1 Tablet(s) PO QD No Start Date 08/03/2015 Inactive atenolol 25 mg tablet RxNorm: 524230 1 Tablet(s) PO QD No Start Date 07/21/2013 Inactive hydrochlorothiazide 25 mg tablet RxNorm: 235903 1 Tablet(s) PO QAM No Start Date 05/26/2015 Inactive Maxalt 10 mg tablet RxNorm: 196867 Tablet(s) PO as needed for headache No Start Date 10/04/2015 Inactive atenolol 25 mg Tab RxNorm: 438937 1/2 Tablet(s) PO QD No Start Date 12/20/2011 Inactive Medrol (Camilo) 4 mg ta blets in a dose pack RxNorm: 074178 Tablet(s) PO as direc nico No Start Date 11/11/2012 Inactive Naprosyn 500 mg tablet RxNorm: 572903 1 Tablet(s) PO BID No Start Date 09/04/2014 Inactive promethazine-codeine 6.25 mg-10 mg/5 mL syrup RxNorm: 414917 PO No Start Date 06/29/2014 Inactive Flexeril 5 mg Tab RxNorm: 953715 2 Tablet(s) PO QHS No Start Date 04/13/2010 Inactive Treximet 85 mg-500 m g tablet RxNorm: 245658 Tablet(s) PO PRN No Start Date 07/21/2013 Inactive cyclobenzaprine 5 mg tablet RxNorm: 942203 1-2 Tablet(s) PO QHS No Start Date 03/09/2015 Inactive atenolol 25 mg tablet RxNorm: 601051 1 Tablet(s) PO QD No Start Date 12/25/2016 Inactive lisinopril 20 mg Tab RxNorm: 262845 1 Tablet(s) PO QD No Start Date 10/06/2011 Inactive Topamax 50 mg Tab RxNorm: 590135 1 Tablet(s) PO BID No Start Date 02/15/2010 Inactive Treximet 85 mg-500 m g Tab RxNorm: 033159 Tablet(s) PO Take 1 a t headache onset and may repeat 1 in two hours if needed No Start Date 09/04/2011 Inactive Stool Softener 100 m g Cap RxNorm: 9340846 3 Capsule(s) PO QD No Start Date [...] Item Item Code Result Date COMPREHENSIVE METABOLIC 48747 AST 15 U/L 06/29/2018 COMPREHENSIVE METABOLIC 73510 ALT 15 U/L 06/29/2018 COMPREHENSIVE METABOLIC 86787 BUN 19 mg/dL 06/29/2018 COMPREHENSIVE METABOLIC 32247 ALBUMIN 4.3 g/dL 06/29/2018 COMPREHENSIVE METABOLIC 51395 CHLORIDE 106 mmol/L 06/29/2018 COMPREHENSIVE METABOLIC 14402 Bili Total 0.6 mg/dL 06/29/2018 COMPREHENSIVE METABOLIC 91155 ALK PHOS 82 U/L 06/29/2018 COMPREHENSIVE METABOLIC 08791 SODIUM 141 mmol/L 06/29/2018 COMPREHENSIVE METABOLIC 59994 CREATININE 0.66 mg/dL 06/29/2018 COMPREHENSIVE METABOLIC 12891 CALCIUM 9.6 mg/dL 06/29/2018 COMPREHENSIVE METABOLIC 41326 POTASSIUM 4.3 mmol/L 06/29/2018 COMPREHENSIVE METABOLIC 00475 Total Protein 7.0 g/dL 06/29/2018 COMPREHENSIVE METABOLIC 62762 Glucose 102 mg/dL 06/29/2018 COMPREHENSIVE METABOLIC 85321 Bicarbonate 29 mmol/L 06/29/2018 COMPREHENSIVE METABOLIC 89761 AGAP 6 mmol/L 06/29/2018 FREE T4 99019 T4 Free 1.04 ng/dL 06/29/2018 GFR CALC 1422910 GFR Non Afr Amr >60 mL/min 06/29/2018 GFR CALC 1447642 GFR Afr Amr >60 mL/min 06/29/2018 LIPID GROUP 38721 Choles terol 197 mg/dL 06/29/2018 LIPID GROUP 33765 Trigly ceride 70 mg/dL 06/29/2018 LIPID GROUP 65136 HDL CH OLESTEROL 45 mg/dL 06/29/2018 LIPID GROUP 37399 Chol/H DL Ratio 4.38 ratio 06/29/2018 LIPID GROUP 56942 NON-HD L Chol 152 mg/dL 06/29/2018 LIPID GROUP 18779 LDL Ch olesterol 138 mg/dL 06/29/2018 THYROID STIMULATING HORMONE 92717 TSH 1.477 uIU/mL 9 COMPLETE BLOOD COUNT 7102537 WBC 5.2 10e9/L 06/29/2018 COMPLETE BLOOD COUNT 5224161 RBC 4.93 10e12/L 9 COMPLETE BLOOD COUNT 4718915 HEMOGLOBIN 14.3 g/dL 06/29/2018 COMPLETE BLOOD COUNT 8027083 HEMATOCRIT 42.9 % 06/29/2018 COMPLETE BLOOD COUNT 1018387 MCV 87.0 fL 06/29/2018 COMPLETE BLOOD COUNT [id number] MCH 29.0 pg 06/29/2018 COMPLETE BLOOD COUNT 3400789 MCHC 33.3 g/dL 06/29/2018 COMPLETE BLOOD COUNT 2110294 PLATELET COUNT 289 10e9/L 06/29/2018 COMPLETE BLOOD COUNT 0264191 Mean Plt Volume 10.6 fL 06/29/2018 COMPLETE BLOOD COUNT 2047949 Neut Auto 74.1 % 06/29/2018 COMPLETE BLOOD COUNT 1451236 Lymph Auto 14.7 % 06/29/2018 COMPLETE BLOOD COUNT 6899275 [place] Auto 8.3 % 06/29/2018 COMPLETE BLOOD COUNT 5026140 RDW 13.7 % 06/29/2018 COMPLETE BLOOD COUNT [id number] Eos Auto 2.7 % 06/29/2018 COMPLETE BLOOD COUNT 2176471 Baso Auto 0.2 % 06/29/2018 COMPLETE BLOOD COUNT 5416228 Neutrophil Abs 3.85 10e9/L 06/29/2018 COMPLETE BLOOD COUNT 2210020 Lymphocyte Abs 0.76 10e9/L 06/29/2018 COMPLETE BLOOD COUNT 4689471 Monocyte Abs 0.43 10e9/L 06/29/2018 COMPLETE BLOOD COUNT 3760646 Eosinophil Abs 0.14 10e9/L 06/29/2018 COMPLETE BLOOD COUNT [id number] RDW-SD 42.7 fL 06/29/2018 COMPLETE BLOOD COUNT [id number] Basophil Abs 0.01 10e9/L 06/29/2018 IRON 72659 IRON TEST 42 UG/DL 07/31/2014 FERRITIN 88418 FERRITIN 10 NG/ML 07/31/2014 VITAMIN B 12 FOLIC ACID 95787|46599 VIT B 12 233 PG/ML 07/31/2014 VITAMIN B 12 FOLIC ACID 32473|28851 FOLIC ACID 8.7 NG/ML 5 COMPLETE BLOOD COUNT 9366303 WBC 6.4 10e9/L 07/29/2014 COMPLETE BLOOD COUNT 9351114 RBC 4.36 10e12/L 5 COMPLETE BLOOD COUNT 1957290 HGB 11.5 g/dL 07/29/2014 COMPLETE BLOOD COUNT 2411459 HCT DET 35.3 % 07/29/2014 COMPLETE BLOOD COUNT 0805707 MCV 81.0 fL 07/29/2014 COMPLETE BLOOD COUNT 9617175 MCH 26.4 pg 07/29/2014 COMPLETE BLOOD COUNT 7693523 MCHC 32.6 g/dL 07/29/2014 COMPLETE BLOOD COUNT 5980845 PLT 329 10e9/L 07/29/2014 COMPLETE BLOOD COUNT 5861133 MPV 10.4 fL 07/29/2014 COMPLETE BLOOD COUNT [id number] ROLAND % 69.6 % 07/29/2014 COMPLETE BLOOD COUNT 6257363 LY % 21.3 % 07/29/2014 COMPLETE BLOOD COUNT 6701577 MON % 6.8 % 07/29/2014 COMPLETE BLOOD COUNT 8562922 EOS % 2.0 % 07/29/2014 COMPLETE BLOOD COUNT 9135419 BASO % 0.3 % 07/29/2014 COMPLETE BLOOD COUNT 5475314 RDW 15.9 % 07/29/2014 COMPLETE BLOOD COUNT 9473045 ABS ROLAND 4.45 10e9/L 07/29/2014 COMPLETE BLOOD COUNT 6854686 ABS LYMPH 1.36 10e9/L 07/29/2014 COMPLETE BLOOD COUNT 1572931 ABS MONO 0.44 10e9/L 07/29/2014 COMPLETE BLOOD COUNT 2394914 ABS EOS 0.13 10e9/L 07/29/2014 COMPLETE BLOOD COUNT 6036956 ABS BASO 0.02 10e9/L 07/29/2014 COMPLETE BLOOD COUNT [id number] RDW-SD 46.1 fL 07/29/2014 LIPID GROUP [address] 41 MG/DL 07/29/2014 LIPID GROUP 20172 TRIG 92 MG/DL 07/29/2014 LIPID GROUP 20287 TEST L DL 118 MG/DL 07/29/2014 LIPID GROUP 64336 CHOL 177 MG/DL 07/29/2014 LIPID GROUP 01622 RCHOL/ HDL 4.32 RATIO 07/29/2014 LIPID GROUP 09002 NON-HD L CH 136 MG/DL 07/29/2014 GFR CALC 1158857 GFR AA >60 ML/MIN 07/29/2014 GFR CALC 8053746 GFR NON -AA >60 ML/MIN 07/29/2014 FREE T4 68456 FREE T4 1.10 NG/DL 07/29/2014 COMPREHENSIVE METABOLIC 96871 AST 13 U/L 07/29/2014 COMPREHENSIVE METABOLIC 43314 ALT 12 IU/L 07/29/2014 COMPREHENSIVE METABOLIC 47685 BUN 16 MG/DL 07/29/2014 COMPREHENSIVE METABOLIC 96948 ALBUMIN 4.1 GM/DL 07/29/2014 COMPREHENSIVE METABOLIC 53292 CHLORIDE 106 MMOL/L 07/29/2014 COMPREHENSIVE METABOLIC 86215 BILI TOT 0.4 MG/DL 07/29/2014 COMPREHENSIVE METABOLIC 66988 ALK PHOS 77 U/L 07/29/2014 COMPREHENSIVE METABOLIC 62067 SODIUM 137 MMOL/L 07/29/2014 COMPREHENSIVE METABOLIC 21351 CREATININE 0.65 MG/DL 07/29/2014 COMPREHENSIVE METABOLIC 54374 CALCIUM 9.0 MG/DL 07/29/2014 COMPREHENSIVE METABOLIC 72782 POTASSIUM 4.0 MMOL/L 07/29/2014 COMPREHENSIVE METABOLIC 58254 PROT TOT 6.3 GM/DL 07/29/2014 COMPREHENSIVE METABOLIC 12863 Glucose 98 MG/DL 07/29/2014 COMPREHENSIVE METABOLIC 59711 BICARB 26 MMOL/L 07/29/2014 COMPREHENSIVE METABOLIC 96945 ANION GAP 5 MEQ/L 07/29/2014 THYROID STIMULATING HORMONE 13305 TSH 1.678 uIU/ML 5 GFR CALC 3484239 GFR AA >60 ML/MIN 02/26/2013 GFR CALC 6786684 GFR NON -AA >60 ML/MIN 02/26/2013 THYROID STIMULATING HORMONE 36598 TSH 1.635 uIU/ML 3 COMPLETE BLOOD COUNT 1195811 WBC 7.8 10e9/L 02/26/2013 COMPLETE BLOOD COUNT 8592940 RBC 4.60 10e12/L 3 COMPLETE BLOOD COUNT 5659888 HGB 12.7 g/dL 02/26/2013 COMPLETE BLOOD COUNT 1516950 HCT DET 38.1 % 02/26/2013 COMPLETE BLOOD COUNT 9734248 MCV 82.8 fL 02/26/2013 COMPLETE BLOOD COUNT 7744569 MCH 27.6 pg 02/26/2013 COMPLETE BLOOD COUNT 8417880 MCHC 33.3 g/dL 02/26/2013 COMPLETE BLOOD COUNT 8636674 PLT 324 10e9/L 02/26/2013 COMPLETE BLOOD COUNT 3326768 MPV 10.2 fL 02/26/2013 COMPLETE BLOOD COUNT 5308956 ROLAND % 72.0 % 02/26/2013 COMPLETE BLOOD COUNT 1992031 LY % 20.1 % 02/26/2013 COMPLETE BLOOD COUNT 2788137 MON % 6.3 % 02/26/2013 COMPLETE BLOOD COUNT 1011096 EOS % 1.3 % 02/26/2013 COMPLETE BLOOD COUNT 8141344 BASO % 0.3 % 02/26/2013 COMPLETE BLOOD COUNT 2894363 RDW 14.4 % 02/26/2013 COMPLETE BLOOD COUNT 8287747 ABS ROLAND 5.62 10e9/L 02/26/2013 COMPLETE BLOOD COUNT 7633927 ABS LYMPH 1.57 10e9/L 02/26/2013 COMPLETE BLOOD COUNT 6236434 ABS MONO 0.49 10e9/L 02/26/2013 COMPLETE BLOOD COUNT 3033295 ABS EOS 0.10 10e9/L 02/26/2013 COMPLETE BLOOD COUNT 5373445 ABS BASO 0.02 10e9/L 02/26/2013 COMPLETE BLOOD COUNT 5039250 RDW-SD 42.8 fL 02/26/2013 COMPREHENSIVE METABOLIC 41190 AST 15 U/L 02/26/2013 COMPREHENSIVE METABOLIC 85621 ALT 14 IU/L 02/26/2013 COMPREHENSIVE METABOLIC 62476 BUN 14 MG/DL 02/26/2013 COMPREHENSIVE METABOLIC 75283 ALBUMIN 4.2 GM/DL 02/26/2013 COMPREHENSIVE METABOLIC 88750 CHLORIDE 104 MMOL/L 02/26/2013 COMPREHENSIVE METABOLIC 48570 BILI TOT 0.6 MG/DL 02/26/2013 COMPREHENSIVE METABOLIC 79187 ALK PHOS 71 U/L 02/26/2013 COMPREHENSIVE METABOLIC 54859 SODIUM 136 MMOL/L 02/26/2013 COMPREHENSIVE METABOLIC 46622 CREATININE 0.62 MG/DL 02/26/2013 COMPREHENSIVE METABOLIC 61492 CALCIUM 9.5 MG/DL 02/26/2013 COMPREHENSIVE METABOLIC 53855 POTASSIUM 4.1 MMOL/L 02/26/2013 COMPREHENSIVE METABOLIC 27681 PROT TOT 6.7 GM/DL 02/26/2013 COMPREHENSIVE METABOLIC 72815 Glucose 92 MG/DL 02/26/2013 COMPREHENSIVE METABOLIC 67632 BICARB 26 MMOL/L 02/26/2013 COMPREHENSIVE METABOLIC 66238 ANION GAP 6 MEQ/L 02/26/2013 LIPID GROUP [address] 45 MG/DL 02/26/2013 LIPID GROUP 08003 TRIG 107 MG/DL 02/26/2013 LIPID GROUP 20904 TEST L DL 129 MG/DL 02/26/2013 LIPID GROUP 58173 CHOL 195 MG/DL 02/26/2013 LIPID GROUP 80218 RCHOL/ HDL 4.33 RATIO 02/26/2013 FREE T4 71781 FREE T4 1.07 NG/DL 02/26/2013 MYCOPLASMA ANTIBODY, IFA 04681R8 MYCO G IFA 1:128 11/13/2012 MYCOPLASMA ANTIBODY, IFA 25393Y1 MYCO M IFA <1:10 11/13/2012 MYCOPLASMA ANTIBODY, IFA 83535P5 MYCO INTER SEE BELO 11/13/2012 COMPLETE BLOOD COUNT 8005621 WBC 6.0 10e9/L 11/12/2012 COMPLETE BLOOD COUNT 7153372 RBC 4.68 10e12/L 3 COMPLETE BLOOD COUNT 7990415 HGB 12.9 g/dL 11/12/2012 COMPLETE BLOOD COUNT 6844548 HCT DET 38.7 % 11/12/2012 COMPLETE BLOOD COUNT 3680094 MCV 82.7 fL 11/12/2012 COMPLETE BLOOD COUNT 3742696 MCH 27.6 pg 11/12/2012 COMPLETE BLOOD COUNT 6668538 MCHC 33.3 g/dL 11/12/2012 COMPLETE BLOOD COUNT 3213459 PLT 297 10e9/L 11/12/2012 COMPLETE BLOOD COUNT 3613725 MPV 11.1 fL 11/12/2012 COMPLETE BLOOD COUNT 8600900 ROLAND % 63.8 % 11/12/2012 COMPLETE BLOOD COUNT 0597764 LY % 28.2 % 11/12/2012 COMPLETE BLOOD COUNT 7576929 MON % 6.6 % 11/12/2012 COMPLETE BLOOD COUNT 6119244 EOS % 1.2 % 11/12/2012 COMPLETE BLOOD COUNT 3221962 BASO % 0.2 % 11/12/2012 COMPLETE BLOOD COUNT 9153340 RDW 14.9 % 11/12/2012 COMPLETE BLOOD COUNT 8455733 ABS ROLAND 3.83 10e9/L 11/12/2012 COMPLETE BLOOD COUNT 5141931 ABS LYMPH 1.69 10e9/L 11/12/2012 COMPLETE BLOOD COUNT 4767839 ABS MONO 0.40 10e9/L 11/12/2012 COMPLETE BLOOD COUNT 6644942 ABS EOS 0.07 10e9/L 11/12/2012 COMPLETE BLOOD COUNT 5125694 ABS BASO 0.01 10e9/L 11/12/2012 COMPLETE BLOOD COUNT 7258099 RDW-SD 44.8 fL 11/12/2012 HEMOGLOBIN A1C (GLYCOSYLATED) 1171645 A1C HPLC 66104-7 5.1 % 06/06/2012 RA FACTOR 39868 RA FACTOR <20.0 IU/ML 06/06/2012 ANTINUCLEAR ANTIBODY SCREEN 78425 FERDINAND SCR <1:80 06/06/2012 INSULIN SERUM 71483 INSU PETER 12.2 mU/L 06/06/2012 COMPREHENSIVE METABOLIC 24545 AST 13 U/L 06/05/2012 COMPREHENSIVE METABOLIC 34770 ALT 13 IU/L 06/05/2012 COMPREHENSIVE METABOLIC 06308 BUN 21 MG/DL 06/05/2012 COMPREHENSIVE METABOLIC 83241 ALBUMIN 4.7 GM/DL 06/05/2012 COMPREHENSIVE METABOLIC 12490 CHLORIDE 106 MMOL/L 06/05/2012 COMPREHENSIVE METABOLIC 29551 BILI TOT 0.6 MG/DL 06/05/2012 COMPREHENSIVE METABOLIC 86896 ALK PHOS 61 U/L 06/05/2012 COMPREHENSIVE METABOLIC 88891 SODIUM 139 MMOL/L 06/05/2012 COMPREHENSIVE METABOLIC 42428 CREATININE 0.71 MG/DL 06/05/2012 COMPREHENSIVE METABOLIC 58452 CALCIUM 9.8 MG/DL 06/05/2012 COMPREHENSIVE METABOLIC 78400 POTASSIUM 4.6 MMOL/L 06/05/2012 COMPREHENSIVE METABOLIC 17871 PROT TOT 6.7 GM/DL 06/05/2012 COMPREHENSIVE METABOLIC 50854 Glucose 104 MG/DL 06/05/2012 COMPREHENSIVE METABOLIC 59021 BICARB 24 MMOL/L 06/05/2012 COMPREHENSIVE METABOLIC 50909 ANION GAP 9 MEQ/L 06/05/2012 GFR CALC 7523661 GFR AA >60 ML/MIN 06/05/2012 GFR CALC 7641554 GFR NON -AA >60 ML/MIN 06/05/2012 LIPID GROUP [address] 46 MG/DL 06/05/2012 LIPID GROUP 35720 TRIG 77 MG/DL 06/05/2012 LIPID GROUP 00617 TEST L DL 135 MG/DL 06/05/2012 LIPID GROUP 83413 CHOL 196 MG/DL 06/05/2012 LIPID GROUP 23203 RCHOL/ HDL 4.26 RATIO 06/05/2012 COMPLETE BLOOD COUNT 9164912 WBC 5.9 10e9/L 06/05/2012 COMPLETE BLOOD COUNT 4791462 RBC 5.02 10e12/L 3 COMPLETE BLOOD COUNT 0344564 HGB 13.9 g/dL 06/05/2012 COMPLETE BLOOD COUNT 9484715 HCT DET 41.5 % 06/05/2012 COMPLETE BLOOD COUNT 7454253 MCV 82.7 fL 06/05/2012 COMPLETE BLOOD COUNT 4875070 MCH 27.7 pg 06/05/2012 COMPLETE BLOOD COUNT 2835822 MCHC 33.5 g/dL 06/05/2012 COMPLETE BLOOD COUNT 8430767 PLT 323 10e9/L 06/05/2012 COMPLETE BLOOD COUNT 1935863 MPV 11.3 fL 06/05/2012 COMPLETE BLOOD COUNT 0507290 ROLAND % 70.6 % 06/05/2012 COMPLETE BLOOD COUNT 2806545 LY % 21.4 % 06/05/2012 COMPLETE BLOOD COUNT 6451713 MON % 6.4 % 06/05/2012 COMPLETE BLOOD COUNT 9848883 EOS % 1.3 % 06/05/2012 COMPLETE BLOOD COUNT 2893148 BASO % 0.3 % 06/05/2012 COMPLETE BLOOD COUNT 1876647 RDW 14.9 % 06/05/2012 COMPLETE BLOOD COUNT 6528154 ABS ROLAND 4.17 10e9/L 06/05/2012 COMPLETE BLOOD COUNT 7871028 ABS LYMPH 1.26 10e9/L 06/05/2012 COMPLETE BLOOD COUNT 7507355 ABS MONO 0.38 10e9/L 06/05/2012 COMPLETE BLOOD COUNT 6865870 ABS EOS 0.08 10e9/L 06/05/2012 COMPLETE BLOOD COUNT 1000876 ABS BASO 0.02 10e9/L 06/05/2012 COMPLETE BLOOD COUNT 2255652 RDW-SD 44.8 fL 06/05/2012 THYROID STIMULATING HORMONE 98977 TSH 1.684 uIU/ML 3 FREE T4 51137 FREE T4 1.19 NG/DL 06/05/2012 BASIC METABOLIC PANEL 03114 Glucose 100 MG/DL 04/13/2011 BASIC METABOLIC PANEL 78856 CREATININE 0.66 MG/DL 04/13/2011 BASIC METABOLIC PANEL 83205 BUN 18 MG/DL 04/13/2011 BASIC METABOLIC PANEL 75222 SODIUM 138 MMOL/L 04/13/2011 BASIC METABOLIC PANEL 65141 BICARB 26 MMOL/L 04/13/2011 BASIC METABOLIC PANEL 08864 ANION GAP 9 MEQ/L 04/13/2011 BASIC METABOLIC PANEL 67237 POTASSIUM 4.0 MMOL/L 04/13/2011 BASIC METABOLIC PANEL 04736 CHLORIDE 103 MMOL/L 04/13/2011 BASIC METABOLIC PANEL 34049 CALCIUM 9.6 MG/DL 04/13/2011 FSH 2756494 FSH 4.6 MIU/ML 04/13/2011 GFR CALC 1780097 GFR AA >60 ML/MIN 04/13/2011 GFR CALC 1915436 GFR NON -AA >60 ML/MIN 04/13/2011 ESTRADIOL SERUM 96364 ES TRADIOL 113 PG/ML 04/13/2011 LH 86975 LH 3.7 MIU/ML 04/13/2011 THYROID STIMULATING HORMONE 18350 TSH 1.995 uIU/ML 1 LIPID GROUP [address] 40 MG/DL 12/21/2010 LIPID GROUP 72006 TRIG 66 MG/DL 12/21/2010 LIPID GROUP 49245 TEST L DL 132 MG/DL 12/21/2010 LIPID GROUP 68664 CHOL 185 MG/DL 12/21/2010 LIPID GROUP 77245 RCHOL/ HDL 4.63 RATIO 12/21/2010 THYROID STIMULATING HORMONE 69752 TSH 1.876 uIU/ML 1 COMPLETE BLOOD COUNT 77349 WBC 7.0 10e9/L 12/21/2010 COMPLETE BLOOD COUNT 15839 RBC 4.28 10e12/L 1 COMPLETE BLOOD COUNT 48765 HGB 12.1 g/dL 12/21/2010 COMPLETE BLOOD COUNT 39270 HCT DET 36.1 % 12/21/2010 COMPLETE BLOOD COUNT 69105 MCV 84.3 fL 12/21/2010 COMPLETE BLOOD COUNT 72717 MCH 28.3 pg 12/21/2010 COMPLETE BLOOD COUNT 53232 MCHC 33.5 g/dL 12/21/2010 COMPLETE BLOOD COUNT 00654 PLT 306 10e9/L 12/21/2010 COMPLETE BLOOD COUNT 40548 MPV 10.4 fL 12/21/2010 COMPLETE BLOOD COUNT 56283 ROLAND % 69.9 % 12/21/2010 COMPLETE BLOOD COUNT 67123 LY % 22.2 % 12/21/2010 COMPLETE BLOOD COUNT 86647 MON % 5.7 % 12/21/2010 COMPLETE BLOOD COUNT 56498 EOS % 1.9 % 12/21/2010 COMPLETE BLOOD COUNT 12434 BASO % 0.3 % 12/21/2010 COMPLETE BLOOD COUNT 34641 RDW 14.0 % 12/21/2010 COMPLETE BLOOD COUNT 32413 ABS ROLAND 4.89 10e9/L 12/21/2010 COMPLETE BLOOD COUNT 30477 ABS LYMPH 1.55 10e9/L 12/21/2010 COMPLETE BLOOD COUNT 78548 ABS MONO 0.40 10e9/L 12/21/2010 COMPLETE BLOOD COUNT 97743 ABS EOS 0.13 10e9/L 12/21/2010 COMPLETE BLOOD COUNT 28240 ABS BASO 0.02 10e9/L 12/21/2010 COMPLETE BLOOD COUNT 07045 RDW-SD 41.5 fL 12/21/2010 FREE T4 79468 FREE T4 1.02 NG/DL 12/21/2010 COMPREHENSIVE METABOLIC 22127 AST 11 U/L 12/21/2010 COMPREHENSIVE METABOLIC 49782 ALT 9 IU/L 12/21/2010 COMPREHENSIVE METABOLIC 85611 BUN 16 MG/DL 12/21/2010 COMPREHENSIVE METABOLIC 61654 ALBUMIN 4.0 GM/DL 12/21/2010 COMPREHENSIVE METABOLIC 33306 CHLORIDE 106 MMOL/L 12/21/2010 COMPREHENSIVE METABOLIC 23891 BILI TOT 0.3 MG/DL 12/21/2010 COMPREHENSIVE METABOLIC 42408 ALK PHOS 59 U/L 12/21/2010 COMPREHENSIVE METABOLIC 46476 SODIUM 139 MMOL/L 12/21/2010 COMPREHENSIVE METABOLIC 02489 CREATININE 0.66 MG/DL 12/21/2010 COMPREHENSIVE METABOLIC 93995 CALCIUM 8.9 MG/DL 12/21/2010 COMPREHENSIVE METABOLIC 26634 POTASSIUM 4.2 MMOL/L 12/21/2010 COMPREHENSIVE METABOLIC 86108 PROT TOT 6.5 GM/DL 12/21/2010 COMPREHENSIVE METABOLIC 79765 Glucose 101 MG/DL 12/21/2010 COMPREHENSIVE METABOLIC 20960 BICARB 28 MMOL/L 12/21/2010 COMPREHENSIVE METABOLIC 27585 ANION GAP 5 MEQ/L 12/21/2010 GFR CALC 0181593 GFR AA >60 ML/MIN 12/21/2010 GFR CALC 1889007 GFR NON -AA >60 ML/MIN 12/21/2010 LIPID GROUP [address] 40 MG/DL 12/10/2009 LIPID GROUP 57367 TRIG 98 MG/DL 12/10/2009 LIPID GROUP 54789 TEST L DL 128 MG/DL 12/10/2009 LIPID GROUP 10767 CHOL 188 MG/DL 12/10/2009 LIPID GROUP 73761 RCHOL/ HDL 4.70 RATIO 12/10/2009 DF 4681959 POLY 74 % 12/09/2009 DF 8799518 BAND 0 % 12/09/2009 DF 5185589 LYMP 21 % 12/09/2009 DF 7356954 MONO 3 % 12/09/2009 DF 7958529 EOS 2 % 12/09/2009 DF 1520747 BASO 0 % 12/09/2009 GFR CALC 1818905 GFR AA >60 ML/MIN 12/09/2009 GFR CALC 0821641 GFR NON -AA >60 ML/MIN 12/09/[address] 7989952 WBC 8.7 10e9/L 12/09/[address] 9986118 RBC 4.78 10e12/L 12/09/[address] 5073015 HGB 13.2 g/dL 12/09/[address] 6402249 HCT DET 40.2 % 12/09/[address] 1591207 MCV 84.1 fL 12/09/[address] 7487164 MCH 27.6 pg 12/09/[address] 3396693 MCHC 32.8 g/dL 12/09/[address] 5528709 PLT 374 10e9/L 12/09/[address] 0759550 MPV 11.0 fL 12/09/[address] 7149026 ROLAND % 70.2 % 12/09/[address] 0527304 RDW 14.4 % 12/09/[address] 1417[address] LY % 22.4 % 12/09/[address] 3887861 RDW-SD 44.7 fL 12/09/[address] 0745078 MON % 6.2 % 12/09/[address] 4019026 EOS % 1.0 % 12/09/[address] 4531431 BASO % 0.2 % 12/09/[address] 2376665 ABS ROLAND 6.08 10e9/L 12/09/[address] 7197532 ABS LY MPH 1.94 10e9/L 12/09/[address] 3502747 ABS MO NO 0.54 10e9/L 12/09/[address] 2694677 ABS EOS 0.09 10e9/L 12/09/[address] 8256161 ABS BA SO 0.02 10e9/L 12/09/2009 THYROID STIMULATING HORMONE 09017 TSH 1.916 uIU/ML 0 COMPREHENSIVE METABOLIC 40964 AST 13 U/L 12/09/2009 COMPREHENSIVE METABOLIC 95013 ALT 13 IU/L 12/09/2009 COMPREHENSIVE METABOLIC 60460 BUN 18 MG/DL 12/09/2009 COMPREHENSIVE METABOLIC 78950 ALBUMIN 4.3 GM/DL 12/09/2009 COMPREHENSIVE METABOLIC 39868 CHLORIDE 106 MMOL/L 12/09/2009 COMPREHENSIVE METABOLIC 35298 BILI TOT 0.5 MG/DL 12/09/2009 COMPREHENSIVE METABOLIC 43967 ALK PHOS 69 U/L 12/09/2009 COMPREHENSIVE METABOLIC 69327 SODIUM 137 MMOL/L 12/09/2009 COMPREHENSIVE METABOLIC 77725 CREATININE 0.69 MG/DL 12/09/2009 COMPREHENSIVE METABOLIC 36802 CALCIUM 9.1 MG/DL 12/09/2009 COMPREHENSIVE METABOLIC 37625 POTASSIUM 4.5 MMOL/L 12/09/2009 COMPREHENSIVE METABOLIC 08140 PROT TOT 6.9 GM/DL 12/09/2009 COMPREHENSIVE METABOLIC 19243 Glucose 97 MG/DL 12/09/2009 COMPREHENSIVE METABOLIC 08857 BICARB 20 MMOL/L 12/09/2009 COMPREHENSIVE METABOLIC 00279 ANION GAP 11 MEQ/L 12/09/2009 Review of [...] No chest tightness 07/20/2018 Respiratory No COPD 03/0 12/2018 Respiratory No cough 12/2018 Respiratory No [...] 06/04/2012 Gastrointestinal No nausea 06/04/2012 Neurologic headache 12/2011 Dermatologic No rash 12/2011 Dermatologic No [...] Allergy/Immunology No food allergy 12/06/2010 Neurologic headache 1205/2009 Respiratory apneic events 04/14/2010 Constitutional fatigue 1 [...] Procedures Procedure Codes Date ROUTINE VENIPUNCTURE CPT-4: 32628 06/29/2018 ASSAY OF FREE THYROXINE CPT-4: 64182 06/29/2018 ASSAY THYROID STIM H ORMONE CPT-4: 11736 06/29/2018 COMPREHEN METABOLIC PANEL CPT-4: 83447 06/29/2018 COMPLETE CBC W/AUTO DIFF WBC CPT-4: 73441 06/29/2018 LIPID PANEL CPT-4: 51131 06/29/2018 TDAP VACCINE 7 YRS/> IM CPT-4: 85768 06/11/2018 IMMUNIZATION ADMIN CPT- 4: 57809 06/11/2018 ROUTINE VENIPUNCTURE CPT-4: 31976 04/05/2017 ASSAY THYROID STIM H ORMONE CPT-4: 69468 04/05/2017 COMPREHEN METABOLIC PANEL CPT-4: 10563 04/05/2017 COMPLETE CBC W/AUTO DIFF WBC CPT-4: 05788 04/05/2017 LIPID PANEL CPT-4: 42351 04/05/2017 ASSAY OF BLOOD/URIC ACID CPT-4: 26135 04/05/2017 THER/PROPH/DIAG INJ SC/IM CPT-4: 20243 02/12/2016 TRIAMCINOLONE ACET I [place] NOS CPT-4: J3301 02/12/2016 DEXAMETHASONE SODIUM PHOS CPT-4: J1100 02/12/2016 PRESCRIP TRANSMIT A ERX SY CPT-4: G8553 10/01/2015 URINALYSIS NONAUTO W /O SCOPE CPT-4: 19358 10/01/2015 URINE CULTURE/ COLON Y COUNT CPT-4: 53195 10/01/2015 OCCULT BLOOD FECES CPT- 4: 38547 08/04/2015 [facility]: 72145 08/04/2015 URINALYSIS NONAUTO W /O SCOPE CPT-4: 63870 05/27/2015 URINE CULTURE/ COLON Y COUNT CPT-4: 08422 05/27/2015 THER/PROPH/DIAG INJ SC/IM CPT-4: 50391 03/10/2015 KETOROLAC TROMETHAMI NE INJ CPT-4: J1885 03/10/2015 ROUTINE VENIPUNCTURE CPT-4: 25814 07/29/2014 ASSAY OF FREE THYROXINE CPT-4: 05213 07/29/2014 ASSAY THYROID STIM H ORMONE CPT-4: 50958 07/29/2014 COMPREHEN METABOLIC PANEL CPT-4: 78000 07/29/2014 COMPLETE CBC W/AUTO DIFF WBC CPT-4: 54603 07/29/2014 LIPID PANEL CPT-4: 46779 07/29/2014 ASSAY OF IRON CPT-4: 12469 07/29/2014 ASSAY OF FERRITIN CPT-4: 81314 07/29/2014 VITAMIN B 12 FOLIC ACID CPT-4: 43790|82362 07/29/2014 URINALYSIS NONAUTO W /O SCOPE CPT-4: 14281 05/31/2013 URINE CULTURE/ COLON Y COUNT CPT-4: 82719 05/31/2013 INFLUENZA ASSAY W/OPTIC CPT-4: 46737 05/27/2013 THER/PROPH/DIAG INJ SC/IM CPT-4: 22073 05/27/2013 METHYLPREDNISOLONE 4 0 MG INJ CPT-4: J1030 05/27/2013 TRIAMCINOLONE ACET I [place] NOS CPT-4: J3301 05/27/2013 ROUTINE VENIPUNCTURE CPT-4: 47971 02/26/2013 ASSAY OF FREE THYROXINE CPT-4: 47492 02/26/2013 ASSAY THYROID STIM H ORMONE CPT-4: 05739 02/26/2013 COMPREHEN METABOLIC PANEL CPT-4: 53338 02/26/2013 COMPLETE CBC W/AUTO DIFF WBC CPT-4: 96342 02/26/2013 LIPID PANEL CPT-4: 61550 02/26/2013 ROUTINE VENIPUNCTURE CPT-4: 87010 11/12/2012 COMPLETE CBC W/AUTO DIFF WBC CPT-4: 92380 11/12/2012 MYCOPLASMA ANTIBODY, IFA CPT-4: 81354P0 11/12/2012 ROUTINE VENIPUNCTURE CPT-4: 63528 06/05/2012 ASSAY OF FREE THYROXINE CPT-4: 32838 06/05/2012 ASSAY THYROID STIM H ORMONE CPT-4: 68374 06/05/2012 COMPREHEN METABOLIC PANEL CPT-4: 14860 06/05/2012 COMPLETE CBC W/AUTO DIFF WBC CPT-4: 71723 06/05/2012 LIPID PANEL CPT-4: 24687 06/05/2012 ANTINUCLEAR ANTIBODIES CPT-4: 51479 06/05/2012 RHEUMATOID FACTOR QUANT CPT-4: 35341 06/05/2012 ASSAY OF INSULIN CPT-4: 08238 06/05/2012 A1C GLYCOSYLATED HEM OGLOBIN TEST CPT-4: 00351 06/05/2012 SPECIMEN HANDLING OF [facility]-LAB CPT-4: 12731 12/21/2011 ROUTINE VENIPUNCTURE CPT-4: 13989 04/13/2011 ASSAY THYROID STIM H ORMONE CPT-4: 63656 04/13/2011 METABOLIC PANEL TOTA L CA CPT-4: 50711 04/13/2011 FSH CPT-4: 7688869 04/13/2011 LH CPT-4: 13840 04/13/2011 ASSAY OF ESTRADIOL CPT- 4: 33966 04/13/2011 URINALYSIS NONAUTO W /O SCOPE CPT-4: 42621 02/04/2011 URINE CULTURE/ COLON Y COUNT CPT-4: 89242 02/04/2011 ROUTINE VENIPUNCTURE CPT-4: 40040 12/21/2010 ASSAY OF FREE THYROXINE CPT-4: 57833 12/21/2010 ASSAY THYROID STIM H ORMONE CPT-4: 67210 12/21/2010 COMPLETE CBC W/AUTO DIFF WBC CPT-4: 37044 12/21/2010 COMPREHEN METABOLIC PANEL CPT-4: 58960 12/21/2010 LIPID PANEL CPT-4: 41779 12/21/2010 OCCULT BLOOD FECES CPT- 4: 03403 12/06/2010 ROUTINE VENIPUNCTURE CPT-4: 71354 12/09/2009 CBC WITH MANUAL DIFF ERENTIAL CPT-4: 60839|98121 12/09/2009 COMPREHEN METABOLIC PANEL CPT-4: 38837 12/09/2009 LIPID PANEL CPT-4: 84797 12/09/2009 ASSAY THYROID STIM H ORMONE CPT-4: 24387 12/09/2009 SPECIMEN HANDLING OF [facility]-LAB CPT-4: 58463 12/08/2009 THER/PROPH/DIAG INJ SC/IM CPT-4: 32269 09/01/2009 KETOROLAC TROMETHAMI NE INJ CPT-4: J1885 09/01/2009 URINALYSIS NONAUTO W /O SCOPE CPT-4: 55267 08/26/2009 Vital Signs Date Vital 07/20/2018 Blood Pressure 1: 118/80 Code: 8480-6 Heart Rate 1: 68 bpm Respiratory Rate: 20 bpm SpO2: 97% Temperature: 36.6 (C ) / 97.9 (F) Weight: 191 lbs 8 oz 06/29/2018 Heigh t: 5'2" 06/11/2018 Blood Pressure 1: 106/68 Code: 8480-6 BMI: 36.2 Code: 42818-6 Heart Rate 1: 72 bpm Height: 5'2" Respiratory Rate: 20 bpm SpO2: 97% Temperature: 37.1 (C ) / 98.8 (F) Weight: 198 lbs 04/05/2017 Blood Pressure 1: 114/78 Code: 8480-6 BMI: 35.5 Code: 03645-9 Heart Rate 1: 68 bpm Height: 5'2" Respiratory Rate: 20 bpm SpO2: 96% Temperature: 36.9 (C ) / 98.5 (F) Weight: 194 lbs 02/12/2016 Blood Pressure 1: 126/78 Code: 8480-6 BMI: 31.8 Code: 28513-8 Heart Rate 1: 60 bpm Height: 5'2" Respiratory Rate: 24 bpm SpO2: 96% Temperature: 36.2 (C ) / 97.1 (F) Weight: 174 lbs 01/25/2016 Blood Pressure 1: 128/78 Code: 8480-6 BMI: 31.6 Code: 37205-9 Heart Rate 1: 76 bpm Height: 5'2" Respiratory Rate: 20 bpm SpO2: 98% Temperature: 36.5 (C ) / 97.7 (F) Weight: 173 lbs 10/01/2015 Blood Pressure 1: 108/58 Code: 8480-6 BMI: 32.9 Code: 76305-2 Heart Rate 1: 62 bpm Height: 5'2" Respiratory Rate: 20 bpm SpO2: 98% Temperature: 36.2 (C ) / 97.1 (F) Weight: 180 lbs 08/04/2015 Blood Pressure 1: 126/78 Code: 8480-6 BMI: 33.8 Code: 69471-1 Heart Rate 1: 72 bpm Height: 5'2" Respiratory Rate: 20 bpm Temperature: 36.9 (C ) / 98.5 (F) Weight: 185 lbs 05/27/2015 Blood Pressure 1: 132/80 Code: 8480-6 BMI: 36.2 Code: 50496-2 Heart Rate 1: 56 bpm Height: 5'2" Respiratory Rate: 20 bpm Temperature: 37.0 (C ) / 98.6 (F) Weight: 198 lbs 03/10/2015 Blood Pressure 1: 136/82 Code: 8480-6 BMI: 36.2 Code: 77485-9 Heart Rate 1: 88 bpm Height: 5'2" Respiratory Rate: 20 bpm Temperature: 37.0 (C ) / 98.6 (F) Weight: 198 lbs 06/30/2014 Blood Pressure 1: 124/78 Code: 8480-6 BMI: 35.8 Code: 71081-4 Heart Rate 1: 84 bpm Height: 5'2" Respiratory Rate: 20 bpm Temperature: 36.8 (C ) / 98.2 (F) Weight: 196 lbs 08/12/2013 Blood Pressure 1: 114/72 Code: 8480-6 BMI: 35.8 Code: 91001-3 Heart Rate 1: 80 bpm Height: 5'2" [...] 1: 132/86 Code: 8480-6 BMI: 34.9 Code: 13645-8 Heart Rate 1: 72 bpm Height: 5'2" Respiratory Rate: 20 bpm Temperature: 36.9 (C ) / 98.4 (F) Weight: 191 lbs 11/29/2012 Blood Pressure 1: 126/82 Code: 8480-6 BMI: 34.4 Code: 66432-1 Heart Rate 1: 84 bpm Height: 5'2" Respiratory Rate: 20 bpm Temperature: 36.7 (C ) / 98.0 (F) Weight: 188 lbs 11/12/2012 Blood Pressure 1: 110/62 Code: 8480-6 BMI: 34.8 Code: 62018-1 Heart Rate 1: 64 bpm Height: 5'2" Temperature: 36.7 (C ) / 98.1 (F) Weight: 190 lbs 07/30/2012 Blood Pressure 1: 124/82 Code: 8480-6 BMI: 36.0 Code: 30388-6 Heart Rate 1: 84 bpm Height: 5'2" Respiratory Rate: 20 bpm Temperature: 36.5 (C ) / 97.7 (F) Weight: 197 lbs 06/04/2012 Blood Pressure 1: 118/70 Code: 8480-6 BMI: 36.2 Code: 98014-6 Heart Rate 1: 64 bpm Height: 5'2" Temperature: 37.1 (C ) / 98.7 (F) Weight: 198 lbs 12/21/2011 Blood Pressure 1: 132/80 Code: 8480-6 BMI: 33.3 Code: 42072-4 Heart Rate 1: 64 bpm Height: 5'2" Respiratory Rate: 20 bpm Temperature: 36.6 (C ) / 97.8 (F) Weight: 182 lbs 10/07/2011 Blood Pressure 1: 128/72 Code: 8480-6 BMI: 34.4 Code: 40198-0 Heart Rate 1: 80 bpm Height: 5'2" Respiratory Rate: 20 bpm Temperature: 36.8 (C ) / 98.2 (F) Weight: 188 lbs 09/05/2011 Blood Pressure 1: 106/72 Code: 8480-6 BMI: 33.3 Code: 82529-8 Heart Rate 1: 76 bpm Height: 5'2" Respiratory Rate: 20 bpm Temperature: 36.6 (C ) / 97.9 (F) Weight: 182 lbs 04/28/2011 Blood Pressure 1: 110/70 Code: 8480-6 BMI: 34.4 Code: 78159-3 Heart Rate 1: 60 bpm Height: 5'2" Temperature: 37.0 (C ) / 98.6 (F) Weight: 188 lbs 04/13/2011 Blood Pressure 1: 106/84 Code: 8480-6 BMI: 34.4 Code: 72465-2 Heart Rate 1: 80 bpm Height: 5'2" Respiratory Rate: 20 bpm Temperature: 36.6 (C ) / 97.8 (F) Weight: 188 lbs 02/04/2011 Blood Pressure 1: 108/76 Code: 8480-6 BMI: 33.7 Code: 63415-1 Heart Rate 1: 74 bpm Height: 5'2" Weight: 184 lbs 12/06/2010 Blood Pressure 1: 120/72 Code: 8480-6 BMI: 33.3 Code: 70012-1 Heart Rate 1: 76 bpm Height: 5'2" [...] 1: 118/66 Code: 8480-6 BMI: 32.6 Code: 56932-7 Heart Rate 1: 68 bpm Height: 5'2" Temperature: 36.7 (C ) / 98.1 (F) Weight: 178 lbs 09/01/2009 Blood Pressure 1: 118/76 Code: 8480-6 BMI: 34.6 Code: 77164-7 Heart Rate 1: 76 bpm Height: 5'2" [...] Encounters Encounter Performer Loca tion Codes Date ([id number]) OFFICE/OUTPA TIENT VISIT EST Diagnosis: Acute bronchitis, unspecified[ICD10: J20.9] Diagnosis: Acute recurrent maxillary sinusitis[ICD10: J01.01] Nicol Arroyo CAREN ANDERS [employer] CPT-4: 30294 07/20/2018 ([id number]) NURSE/OUTPAT IENT VISIT EST Diagnosis: Encounter for general adult medical examination without abnormal findings[ICD10: Z00.00] Diagnosis: Mixed hyperlipidemia[ICD10: E78.2] Caren CEE [employer] CPT-4: 57544 06/29/2018 ([id number]) PREV VISIT E ST AGE 40-64 Diagnosis: Encounter for general adult medical examination without abnormal findings[ICD10: Z00.00] Diagnosis: Encounter for screening mammogram for malignant neoplasm of breast[ICD10: Z12.31] Diagnosis: Essential (primary) hypertension[ICD10: I10] Diagnosis: Migraine with aura, not intractable, without status migrainosus[ICD10: G43.109] Diagnosis: VACCINE FOR TDAP[ICD10: Z23] Caren ANDERS [employer] CPT-4: 73959 06/11/2018 ([id number]) PREV VISIT E ST AGE 40-64 Diagnosis: [...] Pain in unspecified joint[ICD10: M25.50] Caren CEE [employer] CPT-4: 13382 04/05/2017 ([id number]) OFFICE/OUTPA TIENT VISIT EST Diagnosis: Acute upper respiratory infection, unspecified[ICD10: J06.9] Diagnosis: Acute maxillary sinusitis, unspecified[ICD10: J01.00] Chiara Phelan CAREN Evelyn ANDERS [employer] CPT-4: 44567 02/12/2016 ([id number]) OFFICE/OUTPA TIENT VISIT EST Diagnosis: Acute upper respiratory infection, unspecified[ICD10: J06.9] Diagnosis: Acute maxillary sinusitis, unspecified[ICD10: J01.00] Chiara ANDERS [employer] [facility] CPT-4: 67429 01/25/2016 ([id number]) OFFICE/OUTPA TIENT VISIT EST Diagnosis: Urinary tract infection, site not specified[ICD10: N39.0] Chiara ANDERS DO [facility] CPT-4: 77388 10/01/2015 ([id number]) PREV VISIT E ST AGE 40-64 Diagnosis: Encounter for gynecological examination (general) (routine) without abnormal findings[ICD10: Z01.419] Diagnosis: Encounter for general adult medical examination without abnormal findings[ICD10: Z00.00] Diagnosis: Migraine, unspecified, not intractable, without status migrainosus[ICD10: G43.909] Diagnosis: Essential (primary) hypertension[ICD10: I10] Caren CEE [employer] [facility] CPT-4: 69383 08/04/2015 ([id number]) OFFICE/OUTPA TIENT VISIT EST Diagnosis: Menopausal and female climacteric states[ICD10: N95.1] Diagnosis: Dysuria[ICD10: R30.0] Caren ANDERS [employer] [facility] CPT-4: 64716 05/27/2015 OFFICE/OUTPATIENT SIT EST Diagnosis: Persistent migraine 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 cerebral infarction, intractable, with status migrainosus[ICD10: G43.511] Diagnosis: Unspecified convulsions[ICD10: R56.9] Caren CEE [employer] [facility] CPT-4: 66026 03/10/2015 ([id number]) OFFICE/OUTPA TIENT VISIT EST Diagnosis: HYPERLIPIDEMIA NEC/NOS[ICD9: 272.4] Diagnosis: HYPERTENSION[ICD9: 401.9] Diagnosis: MALAISE AND FATIGUE[ICD9: 780.79] Diagnosis: ANEMIA NOS[ICD9: 285.9] Caren ANDERS [employer] [facility] CPT-4: 30208 07/29/2014 ([id number]) PREV VISIT E ST AGE 40-64 Diagnosis: ROUTINE MEDICAL EXAM[ICD9: V70.0] Diagnosis: HYPERTENSION[ICD9: 401.9] Diagnosis: MIGRAINE NOS/NOT INTRCBL[ICD9: 346.90] Diagnosis: GERD[ICD9: 530.81] [facility] 83143 06/30/2014 ([id number]) OFFICE/OUTPA TIENT VISIT EST Diagnosis: ALLERGIC RHINITIS[ICD9: 477.9] Diagnosis: DERMATITIS NOS[ICD9: 692.9] [facility] CPT-4: 58976 08/12/2013 OFFICE/OUTPATIENT SIT EST Diagnosis: HEMATURIA NOS[ICD9: 599.70] Diagnosis: COUGH[ICD9: 786.2] Diagnosis: BRONCHITIS, ACUTE[ICD9: 466.0] Diagnosis: URINARY TRACT INFECTION[ICD9: 599.0] Lyndsey Clay [facility] CPT-4: 09308 05/31/2013 OFFICE/OUTPATIENT SIT EST Diagnosis: COUGH[ICD9: 786.2] Diagnosis: SINUSITIS, ACUTE[ICD9: 461.9] Diagnosis: FEBRILE ILLNESS[ICD9: 780.60] Lyndsey Rivas [facility] CPT-4: 98847 05/27/2013 ([id number]) OFFICE/OUTPA TIENT VISIT EST Diagnosis: DERMATITIS NOS[ICD9: 692.9] Diagnosis: Tinea cruris[ICD9: 110.3] [facility] CPT-[facility]: 47907 02/26/2013 OFFICE/OUTPATIENT SIT EST Diagnosis: Rash[ICD9: 782.1] Anni Brennan CAREN Evelyn [facility] CPT-4: 43796 11/29/2012 OFFICE/OUTPATIENT SIT EST Diagnosis: COUGH[ICD9: 786.2] Diagnosis: SINUSITIS, ACUTE[ICD9: 461.9] Diagnosis: PHARYNGITIS, ACUTE[ICD9: 462] [facility] CPT-4: 89467 11/12/2012 OFFICE/OUTPATIENT SIT EST Diagnosis: COUGH[ICD9: 786.2] Diagnosis: SINUSITIS, ACUTE[ICD9: 461.9] Diagnosis: Myalgia[ICD9: 729.1] Caren ANDERS [facility] CPT-4: 85999 07/30/2012 ([id number]) OFFICE/OUTPA TIENT VISIT EST Diagnosis: JOINT PAIN-UNSPEC[ICD9: 719.40] Diagnosis: Rash and nonspecific skin eruption[ICD9: 782.1] Caren CEE [facility] CPT-4: 31548 06/05/2012 OFFICE/OUTPATIENT SIT EST Diagnosis: Rash[ICD9: 782.1] Diagnosis: Joint pain[ICD9: 719.40] Caren ANDERS [facility] CPT-4: 86513 06/04/2012 ([id number]) PREV VISIT E ST AGE 40-64 Diagnosis: ROUTINE GYNE EXAM[ICD9: V72.31] Diagnosis: ROUTINE MEDICAL EXAM[ICD9: V70.0] Diagnosis: MIGRAINE NOS/NOT INTRCBL[ICD9: 346.90] Caren CEE [facility] CPT-4: 72938 12/21/2011 OFFICE/OUTPATIENT SIT EST Diagnosis: Hemorrhoid[ICD9: 455.6] Diagnosis: Constipation[ICD9: 564.00] Diagnosis: Rash[ICD9: 782.1] Caren ANDERS [facility] CPT-4: 97293 10/07/2011 OFFICE/OUTPATIENT SIT EST Diagnosis: HYPERTENSION[ICD9: 401.9] Diagnosis: MIGRAINE NOS/NOT INTRCBL[ICD9: 346.90] Diagnosis: DIZZINESS/VERTIGO[ICD9: 780.4] Diagnosis: EUSTACHIAN TUBE DYSFUNCTION[ICD9: 381.81] Diagnosis: Plantar warts[ICD9: 078.12] Caren ANDERS [facility] CPT-4: 60703 09/05/2011 OFFICE/OUTPATIENT SIT EST Diagnosis: SINUSITIS, ACUTE[ICD9: 461.9] Diagnosis: COUGH[ICD9: 786.2] Diagnosis: PHARYNGITIS, ACUTE[ICD9: 462] Diagnosis: DIARRHEA[ICD9: 787.91] [facility] CPT-4: 28336 04/28/2011 OFFICE/OUTPATIENT SIT EST Diagnosis: Finger pain[ICD9: 729.5] Diagnosis: Nasal pain[ICD9: 478.19] Diagnosis: MIGRAINE NOS/NOT INTRCBL[ICD9: 346.90] Diagnosis: Metrorrhagia[ICD9: 626.6] [facility] CPT-4: 33261 04/13/2011 OFFICE/OUTPATIENT SIT EST Diagnosis: Frequent urination[ICD9: 788.41] [facility] CPT-4: 90577 02/04/2011 PREV VISIT EST AGE 4 0-64 [facility]i [facility] CPT-4: 09734 12/06/2010 SPECIMEN HANDLING [facility] CPT-4: 46815 12/06/2010 ([id number]) OFFICE/OUTPA TIENT VISIT, EST [facility] CPT-4: 69826 04/14/2010 ([id number]) OFFICE/OUTPA TIENT VISIT, EST [facility] CPT-4: 05896 02/16/2010 ([id number]) OFFICE/OUTPA TIENT VISIT, EST Caren [facility] CPT-4: 84098 02/03/2010 ([id number]) OFFICE/OUTPA TIENT VISIT, EST [facility] CPT-4: 94591 01/27/2010 (86157) OFFICE/OUTPA TIENT VISIT, EST Caren [facility] CPT-4: 18501 01/25/2010 ([id number]) PREV VISIT, EST, AGE 40-64 Anni [facility] CPT-4: 62326 12/08/2009 ([id number]) OFFICE/OUTPA TIENT VISIT, EST [facility] CPT-4: 12218 09/01/2009 Plan of Care Planned Activity Notes [...] ICD-10 : J20.9 07/20/2018 Appointment: Nicol Arroyo [address] [place] [address] 07/20/2018 Patient Education: prednisone- [employer] Coupon [id number] Completed 07/20/2018 Patient Education: [facility] Rosetta Reid HFA - 18-64 - Dynamic Portal ID Completed 07/20/2018 Patient Education: azithromycin- [employer] Coupon [id number] Completed 07/20/2018 Appointment: Caren Anders WPtel: [facility] [place] [id number] 06/29/2018 Visit Diagnosis Plan: Encounter for scre ening mammogram for malignant neoplasm of breast Discussion: Mammogram ordered ICD-9 : V76.12 ICD-10 : Z12.31 06/11/2018 Visit Diagnosis Plan: Encounter for gene [facility] adult medical examination without abnormal findings [...] G43.109 06/11/2018 Appointment: Caren Anders WPtel: [phone] [facility] Annual Well Visit 06/11/2018 Patient Education: Valtrex- [employer] Coupon [id number] Completed 06/11/2018 Patient Education: mupirocin calcium- Op [employer] Coupon [id number] Completed 06/11/2018 Visit Diagnosis Plan: Encounter for [...] Z00.00 04/05/2017 Appointment: [phone] [facility] [facility] 04/05/2017 Patient Education: Patient Medication Summary Completed 04/05/2017 Care Plan: Referral Order SNOMED-CT : [id number] Pending 04/05/2017 Patient Education: Patient Medication Summary Completed 08/02/2016 Care Plan: MAMMOGRAM SCREENING LOINC : 52357-3 Pending 08/02/2016 Visit Plan: Injection as above [...] up PRN 02/12/2016 [facility]ment[facility] 02/10 confirmed~sl ACUTE ILLNESS 02/12/2016 Patient Education: Patient Medication Summary Completed 02/12/2016 Visit Plan: Rxs as above OTC meds r eviewed - avoid decongestants Rest, fluids, vicks, humidifier, etc Follow up PRN 01/25/2016 Visit Plan: Rxs as above OTC meds r eviewed - avoid decongestants Rest, fluids, vicks, humidifier, etc Follow up PRN 01/25/2016 Appointment: Chiara Phelan [address] [facility] ACUTE ILLNESS 01/25/2016 Patient Education: Patient Medication [...] care reviewed Follow up PRN 10/01/2015 Appointment: Twan Phelanfany [address] [facility] ACUTE ILLNESS 10/01/2015 Patient Education: Patient Medication Summary Completed 10/01/2015 Visit Plan: Obtain lab results Pap done Mammogram ordered Patient awaiting on Dr. Cuello to restart botox for migraines 08/04/2015 Appointment: Caren Anders WPtel: [phone] [facility] 08/02confirmed-sp Annual Well Visit 08/04/2015 Patient Education: Patient Medication Summary Completed 08/04/2015 Care Plan: MAMMOGRAM SCREENING LOINC : 26657-1 Ordered 08/04/2015 Patient Education: Patient Medication Summary Completed 07/29/2015 Care Plan: CBC Ordered 07/29/2015 Visit Plan: Discussed likely perime nopause Will observe through July and up then at [facility] with fasting lab including hormone levels If bleeding returns will proceed with pelvic US Check into chiropractor for ma nipulation for right low back/hip pain 05/27/2015 Visit Plan: Discussed likely perime nopause Will observe through July and fwup then at [facility] with fasting lab including hormone levels If bleeding returns will proceed with pelvic US Check into chiropractor for ma nipulation for right low back/hip pain 05/27/2015 Appointment: Caren Anders WPtel: [phone] [facility] 05/26/15 vm cn 05/26/15 appt confirmed c n ACUTE ILLNESS 05/27/19 Patient Education: Patient Medication Summary Completed 05/27/2015 Referral: Ignacio Esposito WPtel: [facility] [address] [id number] [place] Referral Initiated 04/07/2015 Referral: Caren Anders WPtel: [address] [place], [place] [id number] 03/26/15 Arrival time 9:30 am Procedure 9:45 am. @ [facility] [address] [facility] Matthew 307 Come sleep deprived(4 hours or less) clean hair, no product in hair, no caffeen Initiated 03/26/2015 Visit Plan: Toradol now with compaz ine po when gets home Proceed with updated EEG/neurology evaluation--discussed may need to go on antiseizure meds and drop out of migraine study No driving for 6mos Discussed w ith Dr. Cuello at [facility] in [place]--he wants to see her in next 1-2weeks 03/10/2015 Appointment: Caren Anders WPtel: [address] [place], [place] [phone] ACUTE ILLNESS 03/10/2015 Patient Education: Patient Medication Summary Completed 03/10/2015 Appointment: Caren Anders WPtel: [address] [place], [place] [phone] US LAB 07/29/2014 Patient Education: Patient Medication Summary Completed 07/29/2014 Visit Plan: Check Fasting lab Mammo gram ordered Pap next year Lamisil for 3mos with monthly LFTs 06/30/2014 Appointment: Caren Anders WPtel: [address] [place], [place] [phone] Annual Well Visit 06/30/2014 Patient Education: Patient Medication Summary Completed 06/30/2014 Appointment: Caren Anders WPtel: [address] [place], [place] [phone] Annual Well Visit 06/18/2014 Appointment: Caren Anders WPtel: [address] [place], [place] [phone] ACUTE ILLNESS 06/03/2014 Appointment: Lyndsey Thorpe WPtel: [address] [place], [place] [phone] 02/05 ACUTE ILLNESS 02/06/2014 Visit Plan: Benadryl 25mg q HS Clar itin 10mg q AM Prednisone for 1week Call in 1week on cough and rash 08/12/2013 Appointment: Caren Anders WPtel: [address] [place], [place] [phone] 08/09 FOLLOW UP 08/12/2013 Patient Education: Patient Medication Summary Completed 08/12/2013 Visit Plan: To [facility] for CXR PA and Lateral Added Macrobid to current antibiotics. Recommended referal to Dr Alejo's office for resistant UTI's 05/31/2013 Appointment: Lyndsey Thorpe WPtel: [address] [place] [address] ACUTE ILLNESS 05/31/2013 Patient Education: Patient Medication Summary Completed 05/31/2013 Visit Plan: Kenalog 40 mg / Depo Me droll 40 mg IM now Complete antibiotics. 05/27/2013 Appointment: Lyndsey Thorpe WPtel: [address] [place], [place] [phone] ACUTE ILLNESS 05/27/2013 Patient Education: Patient Medication Summary Completed 05/27/2013 Visit Plan: Lamisil for 3mos Nystat in/TAC topically Check fasting lab 02/26/2013 Appointment: Caren Anders WPtel: [address] [place], [place] [phone] 02/25 ACUTE ILLNESS 02/26/2013 Patient Education: Patient [...] Mycoplasma infection) 11/29/2012 Appointment: Anni Brennan WPtel: [address] [place], [place] [phone] FOLLOW UP 11/29/2012 Patient Education: Patient Medication Summary Completed 11/29/2012 Visit Plan: CBC and mycoplasma lab draw. Levaquin and medrol dose pack with codeine/guiaf cough syrup. 11/12/2012 Appointment: Anni Brennan WPtel: [address] [place], [place] [phone] ACUTE ILLNESS 11/12/2012 Patient Education: Patient Medication Summary Completed 11/12/2012 Visit Plan: Azithromyacin and medro l dose pack. Will focus on hydration and rest. Pt. will notify if symptoms worsen or do not improve. 07/30/2012 Appointment: Anni Brennan WPtel: [address] [place] [address] ACUTE ILLNESS 07/30/2012 Patient Education: Patient Medication Summary Completed 07/30/2012 Appointment: Caren Anders WPtel: [address] [place], [place] [phone] LAB 06/05/2012 Patient Education: Patient Medication Summary [...] from scratching. 06/04/2012 Appointment: Anni Brennan WPtel: [address] [place], [place] [phone] ACUTE ILLNESS 06/04/2012 Patient Education: Patient Medication Summary Completed 06/04/2012 Visit Plan: Pap done Mammo ordered Pt has started botox for Migraines--next shots end of this month Fasting lab in 12/21/2011 Appointment: Caren Anders WPtel: [address] [place], [place] [phone] PAP 12/21/2011 Patient Education: Patient Medication Summary Completed 12/21/2011 Visit Plan: Encouraged fluids and c ontinued use of stool softener. Pt. reports long standing concerns with constipation. Discussed that will likely proceed with colonoscopy. Referral to Dr. Long. Will apply beta methasone to rash and use rectal foam and topical dibucaine. 10/07/2011 Appointment: Anni Brennan WPtel: [address] [place] [address] ACUTE ILLNESS 10/07/2011 Patient Education: Patient Medication [...] for now 09/05/2011 Appointment: Caren Anders WPtel: [address] [place] [address] FOLLOW UP 09/05/2011 Patient Education: Patient Medication Summary Completed 09/05/2011 Visit Plan: imodium. Discussed the importance of hydration. Phoned Cefuroxime and codeine/guiaf into [facility]. Pt. will notify if symptoms worsen. 04/28/2011 Appointment: Anni Brennan WPtel: [address] [place] [address] ACUTE ILLNESS 04/28/2011 Patient Education: Patient Medication Summary Completed 04/28/2011 Visit Plan: Use Aleve BID Observe n ose and finger Check Chem 7, estradiol, FSH, LH, TSH 04/13/2011 Appointment: Caren Anders WPtel: [address] [place] [address] ACUTE ILLNESS 04/13/2011 Patient Education: Patient Medication Summary Completed 04/13/2011 Visit Plan: Septra ds. and Pyridium . Urine sent for culture. Pt. will be notified of culture results. Pt will notify if symptoms are worsening. Will consider lab and imaging studies if symptoms worsen. 02/04/2011 Appointment: Anni Brennan WPtel: [address] [place], [place] [phone] ACUTE ILLNESS 02/04/2011 Patient Education: Patient Medication Summary Completed 02/04/2011 Appointment: Caren Anders WPtel: [address] [place], [place] [phone] [place] LAB 12/21/2010 Patient Education: Patient Medication Summary Completed 12/21/2010 Visit Plan: Dec 13. appnt with [facility] chamorro specialist. will ask about EEG at next appnt. Fasting labs: CBC, CMP, TSH, Free T4 and Lipids. Discussed slight discoloration above rt. eyebrow. Will consider surgical refer ral if area does not resolve. Mammo scheduled. 12/06/2010 Appointment: Anni Brennan WPtel: [address] [place], [place] [phone] PAP 12/06/2010 Patient Education: Patient Medication Summary [...] colon cancer 04/14/2010 Appointment: Caren Anders WPtel: [address] [place], [place] [phone] FOLLOW UP 04/14/2010 Patient Education: Patient Medication Summary Completed 04/14/2010 Appointment: Caren Anders WPtel: [address] [place], [place] [phone] [place] LAB 03/17/2010 Visit Plan: Increase Topamax to 50m g BID Cont Flexeril See Neurology next week 02/16/2010 Appointment: Caren Anders WPtel: [address] [place], [place] [phone] FOLLOW UP 02/16/2010 Patient Education: Patient Medication Summary Completed 02/16/2010 Visit Plan: Pt will seek re-eval if symptoms worsen. 02/03/2010 Appointment: Anni Brennan WPtel: [address] [place], [place] [phone] ACUTE ILLNESS 02/03/2010 Patient Education: Patient Medication Summary Completed 02/03/2010 Visit Plan: Start Topamax for proph ylaxis See Neurology Discussed triggers such as chocolate Start Cipro as ordered May try Midrin and Compazine as ordered Off work rest of week 01/27/2010 Appointment: Caren Anders WPtel: [address] [place] [address] ER Follow UP 01/27/2010 Patient Education: Patient Medication Summary Completed 01/27/2010 Visit Plan: Check CT head Suspect c omplex migraine vs TIA--esequiel await CT results 01/25/2010 Appointment: Caren Anders WPtel: [address] [place] [address] ACUTE ILLNESS 01/25/2010 Patient Education: Patient Medication Summary Completed 01/25/2010 Appointment: Caren Anders WPtel: [address] [place], [place] [phone] 12/09/2009 Patient Education: Patient Medication Summary Completed 12/09/2009 Visit Plan: Claudia will come in [facility] for Lipids, CBC, CMP and TSH. Mammo is scheduled with [facility]. 12/08/2009 Appointment: Anin Brennan WPtel: [address] [place], [place] [phone] PAP 12/08/2009 Patient Education: Patient Medication Summary Completed 12/08/2009 Visit Plan: Add Macrobid Toradol gi weston Zipsor 25mg QID for 5 days OMT done Call in 2days on back 09/01/2009 Appointment: Caren Anders WPtel: [address] [place] [address] ACUTE ILLNESS 09/01/2009 Patient Education: Patient Medication Summary Completed 09/01/2009 Appointment: Caren Anders WPtel: [phone] [id number] US LAB 08/26/2009 Patient Education: Patient Medication Summary Completed 08/26/2009 Referral: Partha Long WPtel: [address] [id number] [address] Coburn's office will call [...] for [address]mos [address] with Dr[address] Cuello at [facility] in [place]--he wants to see her in next 1-2weeks [...] for right low back/hip pain . To [facility] fo r CXR PA and Lateral Added [...] CMP and TSH. Mammo is scheduled with [facility]. . Sandra ds. and Royce thorneium. Urine sent for culture. Pt. will be [...] codeine/guiaf cough syrup. . Dec 13. appnt [facility] headache specialist. will ask about EEG [...]
--- OUTSIDE RECORDS SUMMARY | 2019-10-11 18:49 | XMS REPORT | Continuity of Care Document ---
Author Organization Unknown Address Unknown Phone Unavailable Allergies Active Description Code Type Severity Reaction Onset Reported/Identified Relationship to Patient Clinical Status Yes PCN PCN Unknown HIVES 10/31/2011 Yes Penicillins [id number] Drug Aller gy Mild HIVES 06/05/2017 Medications There is no data. Problems Date Dx Coded Attending Type Code Diagnosis Diagnosed By 06/05/2017 SILVIA FUENTES, JULIANA De Los Santos Ot Z01.818 ENCOUNTER FOR OTHER PREPROCEDURAL EXAMIN 06/05/2017 JULIANA VEGA MD, Ot Z86.010 PERSONAL HISTORY OF COLONIC POLYPS 06/06/2017 JULIANA VEGA MD Ot Z01.818 ENCOUNTER FOR OTHER PREPROCEDURAL EXAMIN 06/06/2017 JULIANA VEGA MD Ot Z86.010 PERSONAL HISTORY OF COLONIC POLYPS 06/09/2017 YOLIS COLORADO SENIOR FRONT END WEB DEVELOPER Ot 786.2 COUGH 06/12/2017 YOLIS COLORADO SENIOR FRONT END WEB DEVELOPER Ot 786.2 COUGH 06/12/2017 JULIANA VEGA MD Ot I1 0 ESSENTIAL (PRIMARY) HYPERTENSION 06/12/2017 JULIANA VEGA MD Ot K21.9 GASTRO-ESOPHAGEAL REFLUX DISEASE WITHOUT 06/12/2017 JULIANA VEGA MD Ot Z0 9 ENCNTR FOR F/U EXAM AFT TRTMT FOR COND O 06/12/2017 JULIANA VEGA MD Ot Z79.899 OTHER LABORER LANDSCAPE (CURRENT) DRUG THERAPY 06/12/2017 JULIANA VEGA MD Ot Z80.0 FAMILY HISTORY OF MALIGNANT NEOPLASM OF 06/12/2017 JULIANA VEGA MD Ot Z86.010 PERSONAL HISTORY OF COLONIC POLYPS 06/12/2017 JULIANA VEGA MD Ot Z88.0 ALLERGY STATUS TO PENICILLIN 06/13/2017 JULIANA VEGA MD Ot I1 0 ESSENTIAL (PRIMARY) HYPERTENSION 06/13/2017 JULIANA VEGA MD Ot K21.9 GASTRO-ESOPHAGEAL REFLUX DISEASE WITHOUT 06/13/2017 JULIANA VEGA MD Ot Z0 9 ENCNTR FOR F/U EXAM AFT TRTMT FOR COND O 06/13/2017 JULIANA VEGA MD Ot Z79.899 OTHER JAIL (CURRENT) DRUG THERAPY 06/13/2017 JULIANA VEGA MD Ot Z80.0 FAMILY HISTORY OF MALIGNANT NEOPLASM OF 06/13/2017 JULIANA VEGA MD Ot Z86.010 PERSONAL HISTORY OF COLONIC POLYPS 06/13/2017 JULIANA VEGA MD Ot Z88.0 ALLERGY STATUS TO PENICILLIN 06/14/2017 JULIANA VEGA MD M Ot I1 0 ESSENTIAL (PRIMARY) HYPERTENSION 06/14/2017 JULIANA VEGA MD Ot K21.9 GASTRO-ESOPHAGEAL REFLUX DISEASE WITHOUT 06/14/2017 JULIANA VEGA MD Ot Z0 9 ENCNTR FOR F/U EXAM AFT TRTMT FOR COND O 06/14/2017 JULIANA VEGA MD Ot Z79.899 OTHER LABORER LANDSCAPE (CURRENT) DRUG THERAPY 06/14/2017 JULIANA VEGA MD Ot Z80.0 FAMILY HISTORY OF MALIGNANT NEOPLASM OF 06/14/2017 JULIANA VEGA MD Ot Z86.010 PERSONAL HISTORY OF COLONIC POLYPS 06/14/2017 JULIANA VEGA MD Ot Z88.0 ALLERGY STATUS TO PENICILLIN 06/18/2017 JULIANA VEGA MD Ot I1 0 ESSENTIAL (PRIMARY) HYPERTENSION 06/18/2017 JULIANA VEGA MD Ot K21.9 GASTRO-ESOPHAGEAL REFLUX DISEASE WITHOUT 06/18/2017 JULIANA VEGA MD Ot Z0 9 ENCNTR FOR F/U EXAM AFT TRTMT FOR COND O 06/18/2017 JULIANA VEGA MD Ot Z79.899 OTHER LABORER LANDSCAPE (CURRENT) DRUG THERAPY 06/18/2017 JULIANA VEGA MD Ot Z80.0 FAMILY HISTORY OF MALIGNANT NEOPLASM OF 06/18/2017 JULIANA VEGA MD Ot Z86.010 PERSONAL HISTORY OF COLONIC POLYPS 06/18/2017 JULIANA VEGA MD Ot Z88.0 ALLERGY STATUS TO PENICILLIN 01/12/2018 Ot M79.672 PA IN IN LEFT FOOT Procedures There is no data. Results There is no data. Encounters ACCT No. Visit Date/Time Discharge Status Pt. Type Provider Facility Loc./Unit Complaint 07/201601/15/2019 15:49:19 01/15/2019 23:59 :59 CLS Outpatient [facility] [id number] 06/12/2017 06:56:00 018 09:31:00 DIS Outpatient JULIANA VEGA MD [facility] ENDO PERSONAL HX POLYPS [id number] 06/05/2017 05:33:00 018 10:07:00 DIS Outpatient JULIANA VEGA MD [facility] PREOP COLONOSCOPY [id number] 05/31/2013 11:52:00 014 23:59:59 CLS Outpatient YOLIS COLORADO [facility] RAD COUGH [id number] 12/24/2017 11:15:00 Document Registration [id number] 07/11/2018 17:40:00 07/11/2018 23:59: 59 CLS Outpatient [facility]
--- OUTSIDE RECORDS SUMMARY | 2019-10-11 18:49 | XMS REPORT | CCD ---
Author Author Claudia Anders D.O. Organization [facility] Address [address] [place] [address] Phone Care Team Providers Care Practical Nursing Teacher Name Role Phone Caren Anders D.O., PP Unavailable CCM Unavailable Summary Purpose Interface Exchange Insurance Providers Payer name Policy type / Coverage type Covered constitution party ID Effective Begin Date Effective End Date Blue Cross Blue Shield Blue Cross/Bl ue Shield [id number] 2018 Un known Family history Father Diagnosis Age At Onset Congestive heart failure Unknown Cancer Unknown Diabetes mellitus Type 2 Unknown Social History Social History Element Codes Description Effective Dates Tobacco history SNOMED CT: 8704830 Former smoker 02/03/2015 Allergies, Adverse Reactions, Alerts [...] Fill Instructions atenolol 25 mg tablet RxNorm: 737142 Tablet(s) TAKE ONE TABLET BY MOUTH DAILY , NEEDS APPT. BEFORE FURTHER REFILLS 12/31/2018 01/29/2019 Active atenolol 25 mg tablet RxNorm: 068141 TAKE ONE TABLET BY MOUTH DAILY, NEEDS AP PT. BEFORE FURTHER REFILLS 12/14/2018 12/31/2018 Inactive tizanidine 4 mg tablet RxNorm: 200271 TAKE ONE TABLET BY MOUTH EVERY 8 HOURS A S NEEDED FOR MUSCLE SPASMS 11/16/2018 12/25/2018 Inactive Naprosyn 500 mg tablet RxNorm: 341568 1 Tablet(s) PO BID 10/01/2018 01/28/2019 Active Maxalt 10 mg tablet RxNorm: 450639 1 Tablet(s) PO at headache onset. May re peat in 2 hours if headache remains. Max of 2/24hr 10/01/2018 11/29/2018 Inactive atenolol 25 mg tablet RxNorm: 864736 Tablet(s) TAKE ONE TABLET BY MOUTH DAILY . 10/01/2018 12/13/2018 In active atenolol 25 mg tablet RxNorm: 826207 TAKE ONE TABLET BY MOUTH DAILY. NEED APPOINTMENT BEFORE FURTHER REFILLS. 09/24/2018 09/30/2018 Inactive atenolol 25 mg tablet RxNorm: 112368 TAKE ONE TABLET BY MOUTH DAILY, NEEDS AP PT. BEFORE FURTHER REFILLS 09/11/2018 09/23/2018 Inactive Naprosyn 500 mg tablet RxNorm: 586034 1 Tablet(s) PO BID Due for annual labs a nd appointment 09/11/2018 09/30/2018 Inactive atenolol 25 mg tablet RxNorm: 144385 TAKE ONE TABLET BY MOUTH DAILY, NEEDS AP PT. BEFORE FURTHER REFILLS 08/29/2018 09/10/2018 Inactive doxycycline hyclate 100 mg tablet RxNorm: 0361827 1 Tablet(s) PO BID 07/27/2018 08/05/2018 Inactive doxycycline hyclate 100 mg tablet RxNorm: 7906443 1 Tablet(s) PO BID 07/27/2018 07/26/2018 Inactive Ventolin HFA 90 mcg/ actuation aerosol inhaler RxNorm: 7444608 2 Puff(s) INH Q6H 07/20/2018 08/18/2018 In active prednisone 20 mg tablet RxNorm: 142220 take 2 tabs for 3 days, then 1 tab for 3 days 07/20/2018 07/25/2018 Inactive azithromycin 250 mg tablet RxNorm: 677998 Take 2 tabs today and one tab days 2-5 07/20/2018 07/25/2018 In active z-pack atenolol 25 mg tablet RxNorm: 285205 TAKE ONE TABLET BY MOUTH DAILY, NEEDS AP PT. BEFORE FURTHER REFILLS 07/13/2018 08/26/2018 Inactive mupirocin 2 % topica l cream RxNorm: 852703 Application TOP BID 06/11/2018 No Stop Date Active Valtrex 1 gram tablet RxNorm: 598815 1 Tablet(s) PO BID 06/11/2018 06/20/2018 Inactive atenolol 25 mg tablet RxNorm: 510303 1 Tablet(s) PO QD NEEDS APPOINTMENT BEFO RE FURTHER REFILLS 05/14/2018 07/12/2018 Inactive Naprosyn 500 mg tablet RxNorm: 472248 1 Tablet(s) PO BID Due for annual labs a nd appointment 04/12/2018 05/11/2018 Inactive Zantac 300 mg tablet RxNorm: 824895 TAKE ONE TABLET BY MOUTH EVERY NIGHT AT BEDTIME 04/09/2018 07/07/2018 Inactive tizanidine 4 mg tablet RxNorm: 974035 TAKE ONE TABLET BY MOUTH EVERY 8 HOURS A S NEEDED FOR MUSCLE SPASMS 02/20/2018 04/20/2018 Inactive Maxalt 10 mg tablet RxNorm: 561596 Tablet(s) TAKE ONE TABLET BY MOUTH NE EDED FOR HEADACHE 01/09/2018 03/09/2018 Inactive Naprosyn 500 mg tablet RxNorm: 572702 Tablet(s) TAKE ONE TABLET BY MOUTH TWICE A DAY 01/08/2018 04/12/2018 Inactive atenolol 25 mg tablet RxNorm: 714883 1 Tablet(s) PO QD 01/08/2018 05/14/2018 Inactive Naprosyn 500 mg tablet RxNorm: 674125 TAKE ONE TABLET BY MOUTH TWICE A DAY 12/10/2017 01/08/2018 In active tizanidine 4 mg tablet RxNorm: 045891 1 Tablet(s) PO Q8H as needed for muscle spasm 11/27/2017 11/26/2017 Inactive Maxalt 10 mg tablet RxNorm: 344096 TAKE ONE TABLET BY MOUTH NEEDED FOR H EADACHE 11/13/2017 01/09/2018 Inactive Naprosyn 500 mg tablet RxNorm: 459412 TAKE ONE TABLET BY MOUTH TWICE A DAY 11/13/2017 12/09/2017 In active atenolol 25 mg tablet RxNorm: 350447 1 Tablet(s) PO QD 09/06/2017 01/08/2018 Inactive Naprosyn 500 mg tablet RxNorm: 327632 1 Tablet(s) PO BID 09/04/2017 11/02/2017 Inactive Maxalt 10 mg tablet RxNorm: 640496 1 Tablet(s) PO as needed for headache 08/07/2017 11/12/2017 In active Naprosyn 500 mg tablet RxNorm: 061198 1 Tablet(s) PO BID 07/07/2017 09/04/2017 Inactive Naprosyn 500 mg tablet RxNorm: 815263 1 Tablet(s) PO BID TAKE ONE TABLET BY MO UTH TWICE A DAY 06/08/2017 07/07/2017 Inactive tizanidine 4 mg tablet RxNorm: 726986 1 Tablet(s) PO Q8H as needed for muscle spasm 05/10/2017 11/27/2017 Inactive atenolol 25 mg tablet RxNorm: 847217 1 Tablet(s) PO QD 05/10/2017 09/06/2017 Inactive Maxalt 10 mg tablet RxNorm: 946067 1 Tablet(s) PO as needed for headache 05/10/2017 08/06/2017 In active atenolol 25 mg tablet RxNorm: 089327 1 Tablet(s) PO QD LAST REFILL---NEEDS UP DATED LAB AND APPOINTMENT 04/04/2017 05/03/2017 Inactive Zantac 300 mg tablet RxNorm: 644152 Tablet(s) TAKE ONE TABLET BY MOUTH EVERY NIGHT AT BEDTIME 04/03/2017 07/31/2017 Inactive atenolol 25 mg tablet RxNorm: 519208 1 Tablet(s) PO QD LAST REFILL---NEEDS UP DATED LAB AND APPOINTMENT 03/02/2017 04/04/2017 Inactive atenolol 25 mg tablet RxNorm: 702449 1 Tablet(s) PO QD LAST REFILL---NEEDS UP DATED LAB AND APPOINTMENT 02/01/2017 05/10/2017 Inactive Naprosyn 500 mg tablet RxNorm: 245037 1 Tablet(s) PO BID TAKE ONE TABLET BY MO UTH TWICE A DAY 01/02/2017 06/08/2017 Inactive atenolol 25 mg tablet RxNorm: 708082 1 Tablet(s) PO QD Need Labs and appointm ent 12/26/2016 02/01/2017 In active Naprosyn 500 mg tablet RxNorm: 481134 1 Tablet(s) PO BID TAKE ONE TABLET BY MO UTH TWICE A DAY 12/05/2016 01/02/2017 Inactive Naprosyn 500 mg tablet RxNorm: 804781 Tablet(s) TAKE ONE TABLET BY MOUTH TWICE A DAY 11/07/2016 12/05/2016 Inactive Naprosyn 500 mg tablet RxNorm: 357669 Tablet(s) TAKE ONE TABLET BY MOUTH TWICE A DAY 10/06/2016 11/07/2016 Inactive Naprosyn 500 mg tablet RxNorm: 509748 TAKE ONE TABLET BY MOUTH TWICE A DAY 09/04/2016 10/03/2016 In active Naprosyn 500 mg tablet RxNorm: 718139 TAKE ONE TABLET BY MOUTH TWICE A DAY 07/01/2016 08/29/2016 In active Naprosyn 500 mg tablet RxNorm: 109439 TAKE ONE TABLET BY MOUTH TWICE A DAY 04/27/2016 06/25/2016 In active Zantac 300 mg tablet RxNorm: 290723 TAKE ONE TABLET BY MOUTH EVERY NIGHT AT BEDTIME 03/09/2016 04/03/2017 Inactive Levaquin 500 mg tablet RxNorm: 148765 1 Tablet(s) PO QD 02/12/2016 02/18/2016 Inactive azithromycin 250 mg tablet RxNorm: 413189 2 Tablet(s) PO on day one then 1 tab on days 2-5 01/25/2016 01/24/2016 Inactive Medrol (Camilo) 4 mg ta blets in a dose pack RxNorm: 088177 Take as directed 01/25/2016 04/04/2017 In active Naprosyn 500 mg tablet RxNorm: 075269 1 Tablet(s) PO BID 01/15/2016 04/13/2016 Inactive Brisdelle 7.5 mg cap violeta RxNorm: 8674720 1 Capsule(s) PO QHS 12/10/2015 04/04/2017 Inactive atenolol 25 mg tablet RxNorm: 963442 TAKE ONE TABLET BY MOUTH DAILY 12/04/2015 12/26/2016 In active Maxalt 10 mg tablet RxNorm: 990715 1 Tablet(s) PO as needed for headache 10/05/2015 05/09/2017 In active Bactrim DS 800 mg-16 0 mg tablet RxNorm: 206164 1 Tablet(s) PO BID 10/01/2015 10/07/2015 Inactive Zantac 300 mg tablet RxNorm: 522535 Tablet(s) TAKE ONE TABLET BY MOUTH EVERY NIGHT AT BEDTIME 10/01/2015 11/29/2015 Inactive atenolol 25 mg tablet RxNorm: 791932 TAKE ONE TABLET BY MOUTH DAILY 06/09/2015 08/07/2015 In active Naprosyn 500 mg tablet RxNorm: 384216 TAKE ONE TABLET BY MOUTH TWICE A DAY 05/29/2015 01/15/2016 In active Zantac 300 mg tablet RxNorm: 222502 Tablet(s) TAKE ONE TABLET BY MOUTH EVERY NIGHT AT BEDTIME 03/30/2015 10/01/2015 Inactive Compazine 10 mg tablet RxNorm: 430431 1 Tablet(s) PO TID as needed for nausea 03/10/2015 05/26/2015 In active Prevacid 30 mg capsu le,delayed release RxNorm: 281862 Capsule(s) TAKE ONE C APSULE BY MOUTH ONCE A DAY 12/19/2014 05/17/2015 Inactive Naprosyn 500 mg tablet RxNorm: 567480 1 Tablet(s) PO BID 12/02/2014 03/01/2015 Inactive Zantac 300 mg tablet RxNorm: 444094 TAKE ONE TABLET BY MOUTH EVERY NIGHT AT BEDTIME 09/18/2014 03/30/2015 Inactive Naprosyn 500 mg tablet RxNorm: 109020 1 Tablet(s) PO BID 09/04/2014 12/02/2014 Inactive atenolol 25 mg tablet RxNorm: 978513 1 Tablet(s) PO QD 07/17/2014 03/09/2015 Inactive Zantac 300 mg tablet RxNorm: 765682 1 Tablet(s) PO QHS 06/30/2014 09/17/2014 Inactive Lamisil 250 mg tablet RxNorm: 795147 1 Tablet(s) PO QD 06/30/2014 09/27/2014 Inactive Treximet 85 mg-500 m g tablet RxNorm: 969542 Tablet(s) PO PRN as n eeded 06/30/2014 03/09/2015 In active Prevacid 30 mg capsu le,delayed release RxNorm: 035916 TAKE ONE CAPSULE BY M OUTH ONCE A DAY 06/16/2014 12/19/2014 Inactive Treximet 85 mg-500 m g tablet RxNorm: 166124 Tablet(s) PO PRN as n eeded 06/06/2014 06/29/2014 In active Pepcid 20 mg tablet RxNorm: 123363 1 Tablet(s) PO QHS 03/19/2014 06/29/2014 Inactive [SAVINGS FOR UNINSURED PATIENTS -- BIN:[id number], PCN: [id number], Group: [id number], ID# [id number], Process claim through [employer], for questions: . THIS IS NOT INSURANCE.] atenolol 25 mg tablet RxNorm: 849738 1 Tablet(s) PO QD 01/15/2014 07/17/2014 Inactive Pepcid 20 mg tablet RxNorm: 434488 1 Tablet(s) PO QHS 12/23/2013 12/22/2013 Inactive Pepcid 20 mg tablet RxNorm: 145132 1 Tablet(s) PO QHS 12/23/2013 03/19/2014 Inactive [SAVINGS FOR UNINSURED PATIENTS -- BIN:[id number], PCN: [id number], Group: [id number], ID# [id number], Process claim through [employer], for questions: . THIS IS NOT INSURANCE.] Prevacid 30 mg capsu le,delayed release RxNorm: 169806 1 Capsule(s) PO QD 12/23/2013 06/15/2014 In active [SAVINGS FOR UNINSURED PATIENTS -- BIN:0 [id number], PCN: [id number], Group: [id number], ID# [id number], Process claim through [employer], for questions: . THIS IS NOT INSURANCE.] loratadine 10 mg tablet RxNorm: 395369 TAKE ONE TABLET BY MOUTH EVERY MORNING 09/09/2013 04/06/2014 In active nystatin-triamcinolo ne 100,000 unit/g-0.1 % topical cream RxNorm: 3698076 1 Application TOP QHS to rash 08/22/2013 06/29/2014 Inactive prednisone 20 mg tablet RxNorm: 845667 1 Tablet(s) PO BID 08/12/2013 08/18/2013 Inactive loratadine 10 mg tablet RxNorm: 551566 1 Tablet(s) PO QAM 08/12/2013 09/08/2013 Inactive Treximet 85 mg-500 m g tablet RxNorm: 228685 Tablet(s) PO PRN 07/22/2013 07/21/2013 Inactive atenolol 25 mg tablet RxNorm: 419137 1 Tablet(s) PO QD 07/22/2013 01/15/2014 Inactive Prevacid 30 mg capsu le,delayed release RxNorm: 310762 1 Capsule(s) PO BID 07/22/2013 12/22/2013 In active nitrofurantoin macro crystal 100 mg capsule RxNorm: 549277 1 Capsule(s) PO BID 05/31/2013 06/06/2013 In active albuterol sulfate HF A 90 mcg/actuation aerosol inhaler RxNorm: 742938 2 Puff(s) INH QID 05/31/2013 06/13/2013 Inactive azithromycin 250 mg tablet RxNorm: 234352 2 Tablet(s) PO QD 05/27/2013 06/02/2013 Inactive Prevacid 30 mg capsu le,delayed release RxNorm: 438506 1 Capsule(s) PO BID 03/20/2013 07/21/2013 In active Lamisil 250 mg tablet RxNorm: 633937 1 Tablet(s) PO QD 02/26/2013 05/26/2013 Inactive betamethasone eloy te 0.1 % Topical Cream RxNorm: 366717 1 Application TOP BID 11/29/2012 12/12/2012 In active Diflucan 100 mg tablet RxNorm: 765755 1 Tablet(s) PO QD 11/29/2012 12/08/2012 Inactive nystatin 100,000 uni t/gram Topical Powder RxNorm: 094256 1 Gram(s) TOP BID belinda ly to affected areas twice daily 11/29/2012 12/08/2012 Inactive Medrol (Camilo) 4 mg ta blets in a dose pack RxNorm: 236004 Tablet(s) PO as direc nico 11/12/2012 02/25/2013 In active Levaquin 750 mg tablet RxNorm: 338069 1 Tablet(s) PO QD antibiotic 11/12/2012 11/21/2012 Inactive Prevacid 30 mg capsu le,delayed release RxNorm: 365140 1 Capsule(s) PO BID 09/17/2012 03/15/2013 In active azithromycin 250 mg tablet RxNorm: 223032 2 Tablet(s) PO QD 07/30/2012 08/06/2012 Inactive nystatin 100,000 uni t/g Ointment RxNorm: 799157 1 Gram(s) TOP BID belinda ly to affected area twice daily 06/21/2012 06/30/2012 Inactive nystatin 100,000 uni t/g Ointment RxNorm: 013497 1 Gram(s) TOP BID belinda ly to affected area twice daily 06/04/2012 06/13/2012 Inactive Prevacid 30 mg capsu le,delayed release RxNorm: 547052 1 Capsule(s) PO BID 03/01/2012 08/27/2012 In active Omnaris 50 mcg Nasal [place] RxNorm: 567224 2 [place] NASAL QD each nostril 12/21/2011 03/09/2015 In active betamethasone eloy te 0.1 % Topical Cream RxNorm: 971542 1 Application TOP BID 10/07/2011 10/20/2011 In active dibucaine 1 % Rectal Ointment RxNorm: 387555 1 RTL TID 10/07/2011 10/16/2011 Inactive Proctofoam 1 % Topic al Foam RxNorm: 747996 1 TOP BID 10/07/2011 10/16/2011 Inactive Treximet 85 mg-500 m g Tab RxNorm: 347779 Tablet(s) PO Take 1 a t headache onset and may repeat 1 in two hours if needed 09/05/2011 No Stop Date Active Prevacid 30 mg capsu le,delayed release RxNorm: 534613 1 Capsule(s) PO BID 08/30/2011 02/25/2012 In active Flexeril 5 mg tablet RxNorm: 494774 1-2 Tablet(s) PO QHS 08/05/2011 06/29/2014 Inactive prn spasm cefuroxime axetil 50 0 mg Tab RxNorm: 907261 1 Tablet(s) PO BID 04/28/2011 05/07/2011 Inactive Flexeril 5 mg Tab RxNorm: 463427 1-2 Tablet(s) PO QHS 04/20/2011 08/05/2011 Inactive prn spasm Prevacid 30 mg Capsu le, delayed release RxNorm: 927620 1 Capsule(s) PO BID 02/23/2011 08/30/2011 In active Prevacid 30 mg Cap RxNorm: 536240 1 Capsule(s) PO QD 02/21/2011 02/22/2011 Inactive Pyridium 100 mg Tab RxNorm: 1946316 1 Tablet(s) PO TID 02/04/2011 02/05/2011 Inactive will turn urine orange/red. Septra DS 800 mg-160 mg Tab RxNorm: 256950 1 Tablet(s) PO BID 02/04/2011 02/08/2011 Inactive lisinopril 10 mg Tab RxNorm: 970975 1 Tablet(s) PO QD 12/06/2010 01/04/2011 Inactive amitriptyline 10 mg Tab RxNorm: 330543 2 Tablet(s) PO QD 12/06/2010 01/04/2011 Inactive Treximet 85 mg-500 m g Tab RxNorm: 502143 1 Tablet(s) PO 12/02/2010 09/05/2011 Inactive at H A onset, may repeat i po in 2hrs if CHAUHAN remains lisinopril 20 mg Tab RxNorm: 614649 1 Tablet(s) PO QD 09/10/2010 12/06/2010 Inactive Prevacid 30 mg Cap RxNorm: 547627 1 Capsule(s) PO BID 08/09/2010 02/21/2011 Inactive Flexeril 5 mg Tab RxNorm: 846808 1-2 Tablet(s) PO QHS prn spasm 04/14/2010 04/20/2011 In active Topamax 50 mg Tab RxNorm: 564472 1 Tablet(s) PO BID 02/16/2010 04/13/2010 Inactive Topamax 50 mg Tab RxNorm: 017638 1/2 Tablet(s) PO QHS for 1wk then 1 po Q HS 02/15/2010 02/15/2010 In active Cefdinir 300 mg Cap RxNorm: 792391 1 Capsule(s) PO BID One tablet PO twice daily for 10 days. 02/03/2010 02/12/2010 Inactive Topamax 50 mg Tab RxNorm: 075443 1/2 Tablet(s) PO QHS for 1wk then 1 po Q HS 01/27/2010 02/14/2010 In active Flexeril 5 mg Tab RxNorm: 212394 1 Tablet(s) PO TID prn spasm 01/25/2010 02/15/2010 Inactive Macrobid 100 mg Cap RxNorm: 7236283 1 Capsule(s) PO BID 09/01/2009 09/07/2009 Inactive Prevacid 30 mg Cap RxNorm: 149438 1 Capsule(s) PO BID 09/01/2009 09/30/2009 Inactive Flexeril 5 mg Tab RxNorm: 208616 1 Tablet(s) PO TID prn spasm 09/01/2009 09/30/2009 Inactive lisinopril 20 mg Tab RxNorm: 112413 1 Tablet(s) PO QD 08/31/2009 09/10/2010 Inactive atenolol 25 mg Tab RxNorm: 627804 1 Tablet(s) PO QD No Start Date 07/30/2012 Inactive magnesium 100 mg tablet RxNorm: 1 Tablet(s) PO QD No Start Date Active Calcium with Vitamin D 600 mg-400 unit Tab RxNorm: 908897 1 Tablet(s) PO QD No Start Date Active Aspirin 81 mg Tab RxNorm: 605858 1 Tablet(s) PO QD No Start Date Active Brisdelle 7.5 mg cap violeta RxNorm: 4287963 1 Capsule(s) PO QHS No Start Date 12/09/2015 Inactive Prevacid 30 mg Cap RxNorm: 792091 1 Capsule(s) PO QD No Start Date 02/20/2011 Inactive Ultram 50 mg Tab RxNorm: 685991 2 Tablet(s) PO QID prn headache No Start Date 04/13/2010 Inactive tizanidine 4 mg tablet RxNorm: 923897 1 Tablet(s) PO Q8H as needed for muscle spasm No Start Date 05/09/2017 Inactive nystatin-triamcinolo ne 100,000 unit/g-0.1 % topical cream RxNorm: 0137428 1 Application TOP QHS to rash No Start Date 08/21/2013 Inactive Imitrex 100 mg tablet RxNorm: 278870 1 Tablet(s) PO at CHAUHAN onset-September repeat in 6hours as needed No Start Date 08/03/2015 Inactive Treximet 85 mg-500 m g Tab RxNorm: 037230 1 Tablet(s) PO at CHAUHAN onset, may repeat i po in 2hrs if CHAUHAN remains No Start Date 12/02/2010 Inactive alprazolam 0.25 mg t ablet RxNorm: 855006 1 Tablet(s) PO QPM No Start Date 08/03/2015 Inactive amitriptyline 25 mg Tab RxNorm: 170234 1 Tablet(s) PO QAM No Start Date 12/06/2010 Inactive amitriptyline 10 mg Tab RxNorm: 931683 Tablet(s) PO Take 4 tablets by mouth 1 w la posta before period and week of period and 3 tablets other 2 weeks of month No Start Date 09/04/2011 Inactive Omnaris 50 mcg Nasal [place] RxNorm: 227536 2 [place] NASAL QD each nostril No Start Date 12/20/2011 Inactive sertraline 25 mg tablet RxNorm: 964450 1 Tablet(s) PO QD No Start Date 08/03/2015 Inactive atenolol 25 mg tablet RxNorm: 970055 1 Tablet(s) PO QD No Start Date 07/21/2013 Inactive hydrochlorothiazide 25 mg tablet RxNorm: 658764 1 Tablet(s) PO QAM No Start Date 05/26/2015 Inactive Maxalt 10 mg tablet RxNorm: 724752 Tablet(s) PO as needed for headache No Start Date 10/04/2015 Inactive atenolol 25 mg Tab RxNorm: 822841 1/2 Tablet(s) PO QD No Start Date 12/20/2011 Inactive Medrol (Camilo) 4 mg ta blets in a dose pack RxNorm: 403548 Tablet(s) PO as direc nico No Start Date 11/11/2012 Inactive Naprosyn 500 mg tablet RxNorm: 612200 1 Tablet(s) PO BID No Start Date 09/04/2014 Inactive promethazine-codeine 6.25 mg-10 mg/5 mL syrup RxNorm: 564893 PO No Start Date 06/29/2014 Inactive Flexeril 5 mg Tab RxNorm: 948967 2 Tablet(s) PO QHS No Start Date 04/13/2010 Inactive Treximet 85 mg-500 m g tablet RxNorm: 213315 Tablet(s) PO PRN No Start Date 07/21/2013 Inactive cyclobenzaprine 5 mg tablet RxNorm: 783809 1-2 Tablet(s) PO QHS No Start Date 03/09/2015 Inactive atenolol 25 mg tablet RxNorm: 858011 1 Tablet(s) PO QD No Start Date 12/25/2016 Inactive lisinopril 20 mg Tab RxNorm: 888853 1 Tablet(s) PO QD No Start Date 10/06/2011 Inactive Topamax 50 mg Tab RxNorm: 902623 1 Tablet(s) PO BID No Start Date 02/15/2010 Inactive Treximet 85 mg-500 m g Tab RxNorm: 329760 Tablet(s) PO Take 1 a t headache onset and may repeat 1 in two hours if needed No Start Date 09/04/2011 Inactive Stool Softener 100 m g Cap RxNorm: 7634594 3 Capsule(s) PO QD No Start Date [...] Item Item Code Result Date COMPREHENSIVE METABOLIC 16348 AST 15 U/L 06/29/2018 COMPREHENSIVE METABOLIC 47345 ALT 15 U/L 06/29/2018 COMPREHENSIVE METABOLIC 24147 BUN 19 mg/dL 06/29/2018 COMPREHENSIVE METABOLIC 07175 ALBUMIN 4.3 g/dL 06/29/2018 COMPREHENSIVE METABOLIC 51364 CHLORIDE 106 mmol/L 06/29/2018 COMPREHENSIVE METABOLIC 15388 Bili Total 0.6 mg/dL 06/29/2018 COMPREHENSIVE METABOLIC 08926 ALK PHOS 82 U/L 06/29/2018 COMPREHENSIVE METABOLIC 96931 SODIUM 141 mmol/L 06/29/2018 COMPREHENSIVE METABOLIC 17661 CREATININE 0.66 mg/dL 06/29/2018 COMPREHENSIVE METABOLIC 93782 CALCIUM 9.6 mg/dL 06/29/2018 COMPREHENSIVE METABOLIC 37190 POTASSIUM 4.3 mmol/L 06/29/2018 COMPREHENSIVE METABOLIC 93420 Total Protein 7.0 g/dL 06/29/2018 COMPREHENSIVE METABOLIC 37371 Glucose 102 mg/dL 06/29/2018 COMPREHENSIVE METABOLIC 68541 Bicarbonate 29 mmol/L 06/29/2018 COMPREHENSIVE METABOLIC 54061 AGAP 6 mmol/L 06/29/2018 FREE T4 22130 T4 Free 1.04 ng/dL 06/29/2018 GFR CALC 1271560 GFR Non Afr Amr >60 mL/min 06/29/2018 GFR CALC 4119883 GFR Afr Amr >60 mL/min 06/29/2018 LIPID GROUP 49153 Choles terol 197 mg/dL 06/29/2018 LIP[facility] GROUP 00235 Trigly ceride 70 mg/dL 06/29/2018 LIP[facility] GROUP 30131 HDL CH OLESTEROL 45 mg/dL 06/29/2018 LIP[facility] GROUP 83090 Chol/H DL Ratio 4.38 ratio 06/29/2018 LIPID GROUP 63595 NON-HD L Chol 152 mg/dL 06/29/2018 LIPID GROUP 17412 LDL Ch olesterol 138 mg/dL 06/29/2018 THYROID STIMULATING HORMONE 05802 TSH 1.477 uIU/mL 9 COMPLETE BLOOD COUNT 7955092 WBC 5.2 10e9/L 06/29/2018 COMPLETE BLOOD COUNT 5784745 RBC 4.93 10e12/L 9 COMPLETE BLOOD COUNT 2484623 HEMOGLOBIN 14.3 g/dL 06/29/2018 COMPLETE BLOOD COUNT 7843468 HEMATOCRIT 42.9 % 06/29/2018 COMPLETE BLOOD COUNT 2141699 MCV 87.0 fL 06/29/2018 COMPLETE BLOOD COUNT [id number] MCH 29.0 pg 06/29/2018 COMPLETE BLOOD COUNT 7270499 MCHC 33.3 g/dL 06/29/2018 COMPLETE BLOOD COUNT 8533582 PLATELET COUNT 289 10e9/L 06/29/2018 COMPLETE BLOOD COUNT 6358669 Mean Plt Volume 10.6 fL 06/29/2018 COMPLETE BLOOD COUNT 9930432 Neut Auto 74.1 % 06/29/2018 COMPLETE BLOOD COUNT [id number] Lymph Auto 14.7 % 06/29/2018 COMPLETE BLOOD COUNT [id number] Camp Auto 8.3 % 06/29/2018 COMPLETE BLOOD COUNT [id number] RDW 13.7 % 06/29/2018 COMPLETE BLOOD COUNT 0342817 Eos Auto 2.7 % 06/29/2018 COMPLETE BLOOD COUNT 9810323 Baso Auto 0.2 % 06/29/2018 COMPLETE BLOOD COUNT 7984254 Neutrophil Abs 3.85 10e9/L 06/29/2018 COMPLETE BLOOD COUNT 0590918 Lymphocyte Abs 0.76 10e9/L 06/29/2018 COMPLETE BLOOD COUNT [id number] Monocyte Abs 0.43 10e9/L 06/29/2018 COMPLETE BLOOD COUNT 5588663 Eosinophil Abs 0.14 10e9/L 06/29/2018 COMPLETE BLOOD COUNT [id number] RDW-SD 42.7 fL 06/29/2018 COMPLETE BLOOD COUNT [id number] Basophil Abs 0.01 10e9/L 06/29/2018 IRON 12452 IRON TEST 42 UG/DL 07/31/2014 FERRITIN 39513 FERRITIN 10 NG/ML 07/31/2014 VITAMIN B 12 FOLIC ACID 09935|11517 VIT B 12 233 PG/ML 07/31/2014 VITAMIN B 12 FOLIC ACID 77381|77640 FOLIC ACID 8.7 NG/ML 5 COMPLETE BLOOD COUNT 6421682 WBC 6.4 10e9/L 07/29/2014 COMPLETE BLOOD COUNT 2430886 RBC 4.36 10e12/L 5 COMPLETE BLOOD COUNT 6318858 HGB 11.5 g/dL 07/29/2014 COMPLETE BLOOD COUNT 6723441 HCT DET 35.3 % 07/29/2014 COMPLETE BLOOD COUNT 3390035 MCV 81.0 fL 07/29/2014 COMPLETE BLOOD COUNT 0112094 MCH 26.4 pg 07/29/2014 COMPLETE BLOOD COUNT 8027617 MCHC 32.6 g/dL 07/29/2014 COMPLETE BLOOD COUNT 7355261 PLT 329 10e9/L 07/29/2014 COMPLETE BLOOD COUNT 1941761 MPV 10.4 fL 07/29/2014 COMPLETE BLOOD COUNT 8052843 ROLAND % 69.6 % 07/29/2014 COMPLETE BLOOD COUNT 4942741 LY % 21.3 % 07/29/2014 COMPLETE BLOOD COUNT 0778523 MON % 6.8 % 07/29/2014 COMPLETE BLOOD COUNT 8469624 EOS % 2.0 % 07/29/2014 COMPLETE BLOOD COUNT 1587717 BASO % 0.3 % 07/29/2014 COMPLETE BLOOD COUNT 7950387 RDW 15.9 % 07/29/2014 COMPLETE BLOOD COUNT 0178498 ABS ROLAND 4.45 10e9/L 07/29/2014 COMPLETE BLOOD COUNT 3937957 ABS LYMPH 1.36 10e9/L 07/29/2014 COMPLETE BLOOD COUNT 0884988 ABS MONO 0.44 10e9/L 07/29/2014 COMPLETE BLOOD COUNT 5654183 ABS EOS 0.13 10e9/L 07/29/2014 COMPLETE BLOOD COUNT [id number] ABS BASO 0.02 10e9/L 07/29/2014 COMPLETE BLOOD COUNT [id number] RDW-SD 46.1 fL 07/29/2014 LIPID GROUP [address] 41 MG/DL 07/29/2014 LIPID GROUP 48305 TRIG 92 MG/DL 07/29/2014 LIPID GROUP 49356 TEST L DL 118 MG/DL 07/29/2014 LIPID GROUP 06085 CHOL 177 MG/DL 07/29/2014 LIPID GROUP 42892 RCHOL/ HDL 4.32 RATIO 07/29/2014 LIPID GROUP 40319 NON-HD L CH 136 MG/DL 07/29/2014 GFR CALC 9360481 GFR AA >60 ML/MIN 07/29/2014 GFR CALC 8149721 GFR NON -AA >60 ML/MIN 07/29/2014 FREE T4 59858 FREE T4 1.10 NG/DL 07/29/2014 COMPREHENSIVE METABOLIC 31103 AST 13 U/L 07/29/2014 COMPREHENSIVE METABOLIC 18467 ALT 12 IU/L 07/29/2014 COMPREHENSIVE METABOLIC 69712 BUN 16 MG/DL 07/29/2014 COMPREHENSIVE METABOLIC 69265 ALBUMIN 4.1 GM/DL 07/29/2014 COMPREHENSIVE METABOLIC 72404 CHLORIDE 106 MMOL/L 07/29/2014 COMPREHENSIVE METABOLIC 19263 BILI TOT 0.4 MG/DL 07/29/2014 COMPREHENSIVE METABOLIC 44393 ALK PHOS 77 U/L 07/29/2014 COMPREHENSIVE METABOLIC 55514 SODIUM 137 MMOL/L 07/29/2014 COMPREHENSIVE METABOLIC 31112 CREATININE 0.65 MG/DL 07/29/2014 COMPREHENSIVE METABOLIC 47935 CALCIUM 9.0 MG/DL 07/29/2014 COMPREHENSIVE METABOLIC 31185 POTASSIUM 4.0 MMOL/L 07/29/2014 COMPREHENSIVE METABOLIC 62745 PROT TOT 6.3 GM/DL 07/29/2014 COMPREHENSIVE METABOLIC 29098 Glucose 98 MG/DL 07/29/2014 COMPREHENSIVE METABOLIC 65306 BICARB 26 MMOL/L 07/29/2014 COMPREHENSIVE METABOLIC 21231 ANION GAP 5 MEQ/L 07/29/2014 THYROID STIMULATING HORMONE 39899 TSH 1.678 uIU/ML 5 GFR CALC 0961034 GFR AA >60 ML/MIN 02/26/2013 GFR CALC 7620434 GFR NON -AA >60 ML/MIN 02/26/2013 THYROID STIMULATING HORMONE 22349 TSH 1.635 uIU/ML 3 COMPLETE BLOOD COUNT 8280116 WBC 7.8 10e9/L 02/26/2013 COMPLETE BLOOD COUNT 7494354 RBC 4.60 10e12/L 3 COMPLETE BLOOD COUNT [id number] HGB 12.7 g/dL 02/26/2013 COMPLETE BLOOD COUNT [id number] HCT DET 38.1 % 02/26/2013 COMPLETE BLOOD COUNT 2323735 MCV 82.8 fL 02/26/2013 COMPLETE BLOOD COUNT 8736717 MCH 27.6 pg 02/26/2013 COMPLETE BLOOD COUNT 4120602 MCHC 33.3 g/dL 02/26/2013 COMPLETE BLOOD COUNT 6126973 PLT 324 10e9/L 02/26/2013 COMPLETE BLOOD COUNT 3911197 MPV 10.2 fL 02/26/2013 COMPLETE BLOOD COUNT 9704476 ROLAND % 72.0 % 02/26/2013 COMPLETE BLOOD COUNT 9702344 LY % 20.1 % 02/26/2013 COMPLETE BLOOD COUNT 4599289 MON % 6.3 % 02/26/2013 COMPLETE BLOOD COUNT 3327505 EOS % 1.3 % 02/26/2013 COMPLETE BLOOD COUNT 1493572 BASO % 0.3 % 02/26/2013 COMPLETE BLOOD COUNT 6798792 RDW 14.4 % 02/26/2013 COMPLETE BLOOD COUNT 9642010 ABS ROLAND 5.62 10e9/L 02/26/2013 COMPLETE BLOOD COUNT 2222946 ABS LYMPH 1.57 10e9/L 02/26/2013 COMPLETE BLOOD COUNT 3615916 ABS MONO 0.49 10e9/L 02/26/2013 COMPLETE BLOOD COUNT 9907543 ABS EOS 0.10 10e9/L 02/26/2013 COMPLETE BLOOD COUNT 9797889 ABS BASO 0.02 10e9/L 02/26/2013 COMPLETE BLOOD COUNT 7258685 RDW-SD 42.8 fL 02/26/2013 COMPREHENSIVE METABOLIC 97908 AST 15 U/L 02/26/2013 COMPREHENSIVE METABOLIC 22328 ALT 14 IU/L 02/26/2013 COMPREHENSIVE METABOLIC 86262 BUN 14 MG/DL 02/26/2013 COMPREHENSIVE METABOLIC 08875 ALBUMIN 4.2 GM/DL 02/26/2013 COMPREHENSIVE METABOLIC 66093 CHLORIDE 104 MMOL/L 02/26/2013 COMPREHENSIVE METABOLIC 74335 BILI TOT 0.6 MG/DL 02/26/2013 COMPREHENSIVE METABOLIC 10105 ALK PHOS 71 U/L 02/26/2013 COMPREHENSIVE METABOLIC 47361 SODIUM 136 MMOL/L 02/26/2013 COMPREHENSIVE METABOLIC 67145 CREATININE 0.62 MG/DL 02/26/2013 COMPREHENSIVE METABOLIC 76412 CALCIUM 9.5 MG/DL 02/26/2013 COMPREHENSIVE METABOLIC 06029 POTASSIUM 4.1 MMOL/L 02/26/2013 COMPREHENSIVE METABOLIC 83395 PROT TOT 6.7 GM/DL 02/26/2013 COMPREHENSIVE METABOLIC 09994 Glucose 92 MG/DL 02/26/2013 COMPREHENSIVE METABOLIC 36300 BICARB 26 MMOL/L 02/26/2013 COMPREHENSIVE METABOLIC 89417 ANION GAP 6 MEQ/L 02/26/2013 LIPID GROUP [address] 45 MG/DL 02/26/2013 LIPID GROUP 01512 TRIG 107 MG/DL 02/26/2013 LIPID GROUP 55644 TEST L DL 129 MG/DL 02/26/2013 LIPID GROUP 43739 CHOL 195 MG/DL 02/26/2013 LIPID GROUP 88754 RCHOL/ HDL 4.33 RATIO 02/26/2013 FREE T4 55406 FREE T4 1.07 NG/DL 02/26/2013 MYCOPLASMA ANTIBODY, IFA [id number] MYCO G IFA 1:128 11/13/2012 MYCOPLASMA ANTIBODY, IFA [id number] MYCO M IFA <1:10 11/13/2012 MYCOPLASMA ANTIBODY, IFA 93567W2 MYCO INTER SEE BELO 11/13/2012 COMPLETE BLOOD COUNT 5372311 WBC 6.0 10e9/L 11/12/2012 COMPLETE BLOOD COUNT 2630334 RBC 4.68 10e12/L 3 COMPLETE BLOOD COUNT 5306966 HGB 12.9 g/dL 11/12/2012 COMPLETE BLOOD COUNT 3353908 HCT DET 38.7 % 11/12/2012 COMPLETE BLOOD COUNT 5613689 MCV 82.7 fL 11/12/2012 COMPLETE BLOOD COUNT 6076269 MCH 27.6 pg 11/12/2012 COMPLETE BLOOD COUNT 2751082 MCHC 33.3 g/dL 11/12/2012 COMPLETE BLOOD COUNT 3652980 PLT 297 10e9/L 11/12/2012 COMPLETE BLOOD COUNT 4978010 MPV 11.1 fL 11/12/2012 COMPLETE BLOOD COUNT 5904111 ROLAND % 63.8 % 11/12/2012 COMPLETE BLOOD COUNT 3460723 LY % 28.2 % 11/12/2012 COMPLETE BLOOD COUNT 6211326 MON % 6.6 % 11/12/2012 COMPLETE BLOOD COUNT 8970836 EOS % 1.2 % 11/12/2012 COMPLETE BLOOD COUNT 0187952 BASO % 0.2 % 11/12/2012 COMPLETE BLOOD COUNT 7728555 RDW 14.9 % 11/12/2012 COMPLETE BLOOD COUNT 8085451 ABS ROLAND 3.83 10e9/L 11/12/2012 COMPLETE BLOOD COUNT 2676348 ABS LYMPH 1.69 10e9/L 11/12/2012 COMPLETE BLOOD COUNT 3439677 ABS MONO 0.40 10e9/L 11/12/2012 COMPLETE BLOOD COUNT 9956382 ABS EOS 0.07 10e9/L 11/12/2012 COMPLETE BLOOD COUNT 1474547 ABS BASO 0.01 10e9/L 11/12/2012 COMPLETE BLOOD COUNT 1349087 RDW-SD 44.8 fL 11/12/2012 HEMOGLOBIN A1C (GLYCOSYLATED) 7753606 A1C HPLC 75295-3 5.1 % 06/06/2012 RA FACTOR 01520 RA FACTOR <20.0 IU/ML 06/06/2012 ANTINUCLEAR ANTIBODY SCREEN 67411 FERDINAND SCR <1:80 06/06/2012 INSULIN SERUM 25604 INSU PETER 12.2 mU/L 06/06/2012 COMPREHENSIVE METABOLIC 68480 AST 13 U/L 06/05/2012 COMPREHENSIVE METABOLIC 38547 ALT 13 IU/L 06/05/2012 COMPREHENSIVE METABOLIC 36764 BUN 21 MG/DL 06/05/2012 COMPREHENSIVE METABOLIC 36294 ALBUMIN 4.7 GM/DL 06/05/2012 COMPREHENSIVE METABOLIC 86318 CHLORIDE 106 MMOL/L 06/05/2012 COMPREHENSIVE METABOLIC 17742 BILI TOT 0.6 MG/DL 06/05/2012 COMPREHENSIVE METABOLIC 50286 ALK PHOS 61 U/L 06/05/2012 COMPREHENSIVE METABOLIC 77972 SODIUM 139 MMOL/L 06/05/2012 COMPREHENSIVE METABOLIC 07363 CREATININE 0.71 MG/DL 06/05/2012 COMPREHENSIVE METABOLIC 93642 CALCIUM 9.8 MG/DL 06/05/2012 COMPREHENSIVE METABOLIC 71416 POTASSIUM 4.6 MMOL/L 06/05/2012 COMPREHENSIVE METABOLIC 01820 PROT TOT 6.7 GM/DL 06/05/2012 COMPREHENSIVE METABOLIC 58220 Glucose 104 MG/DL 06/05/2012 COMPREHENSIVE METABOLIC 73853 BICARB 24 MMOL/L 06/05/2012 COMPREHENSIVE METABOLIC 25234 ANION GAP 9 MEQ/L 06/05/2012 GFR CALC 1864610 GFR AA >60 ML/MIN 06/05/2012 GFR CALC 7293851 GFR NON -AA >60 ML/MIN 06/05/2012 LIPID GROUP [address] 46 MG/DL 06/05/2012 LIPID GROUP 95448 TRIG 77 MG/DL 06/05/2012 LIPID GROUP 12422 TEST L DL 135 MG/DL 06/05/2012 LIPID GROUP 16240 CHOL 196 MG/DL 06/05/2012 LIPID GROUP 84346 RCHOL/ HDL 4.26 RATIO 06/05/2012 COMPLETE BLOOD COUNT 6440659 WBC 5.9 10e9/L 06/05/2012 COMPLETE BLOOD COUNT 2837986 RBC 5.02 10e12/L 3 COMPLETE BLOOD COUNT 2701868 HGB 13.9 g/dL 06/05/2012 COMPLETE BLOOD COUNT 5698025 HCT DET 41.5 % 06/05/2012 COMPLETE BLOOD COUNT 8271148 MCV 82.7 fL 06/05/2012 COMPLETE BLOOD COUNT 3194659 MCH 27.7 pg 06/05/2012 COMPLETE BLOOD COUNT 7694879 MCHC 33.5 g/dL 06/05/2012 COMPLETE BLOOD COUNT 6371590 PLT 323 10e9/L 06/05/2012 COMPLETE BLOOD COUNT 8618596 MPV 11.3 fL 06/05/2012 COMPLETE BLOOD COUNT 6320070 ROLAND % 70.6 % 06/05/2012 COMPLETE BLOOD COUNT 3024461 LY % 21.4 % 06/05/2012 COMPLETE BLOOD COUNT 7336013 MON % 6.4 % 06/05/2012 COMPLETE BLOOD COUNT 2583677 EOS % 1.3 % 06/05/2012 COMPLETE BLOOD COUNT 5102945 BASO % 0.3 % 06/05/2012 COMPLETE BLOOD COUNT 8477980 RDW 14.9 % 06/05/2012 COMPLETE BLOOD COUNT 8678088 ABS ROLAND 4.17 10e9/L 06/05/2012 COMPLETE BLOOD COUNT 5941533 ABS LYMPH 1.26 10e9/L 06/05/2012 COMPLETE BLOOD COUNT 3740527 ABS MONO 0.38 10e9/L 06/05/2012 COMPLETE BLOOD COUNT 8255075 ABS EOS 0.08 10e9/L 06/05/2012 COMPLETE BLOOD COUNT 7956184 ABS BASO 0.02 10e9/L 06/05/2012 COMPLETE BLOOD COUNT 0154187 RDW-SD 44.8 fL 06/05/2012 THYROID STIMULATING HORMONE 30435 TSH 1.684 uIU/ML 3 FREE T4 84209 FREE T4 1.19 NG/DL 06/05/2012 BASIC METABOLIC PANEL 48032 Glucose 100 MG/DL 04/13/2011 BASIC METABOLIC PANEL 41699 BUN 18 MG/DL 04/13/2011 BASIC METABOLIC PANEL 91563 CREATININE 0.66 MG/DL 04/13/2011 BASIC METABOLIC PANEL 08810 SODIUM 138 MMOL/L 04/13/2011 BASIC METABOLIC PANEL 14353 BICARB 26 MMOL/L 04/13/2011 BASIC METABOLIC PANEL 04897 ANION GAP 9 MEQ/L 04/13/2011 BASIC METABOLIC PANEL 99287 POTASSIUM 4.0 MMOL/L 04/13/2011 BASIC METABOLIC PANEL 83217 CHLORIDE 103 MMOL/L 04/13/2011 BASIC METABOLIC PANEL 04709 CALCIUM 9.6 MG/DL 04/13/2011 FSH 3070747 FSH 4.6 MIU/ML 04/13/2011 GFR CALC 8884690 GFR AA >60 ML/MIN 04/13/2011 GFR CALC 0071259 GFR NON -AA >60 ML/MIN 04/13/2011 ESTRADIOL SERUM 48186 ES TRADIOL 113 PG/ML 04/13/2011 LH 11441 LH 3.7 MIU/ML 04/13/2011 THYROID STIMULATING HORMONE 33860 TSH 1.995 uIU/ML 1 LIPID GROUP [address] 40 MG/DL 12/21/2010 LIPID GROUP 19039 TRIG 66 MG/DL 12/21/2010 LIPID GROUP 99990 TEST L DL 132 MG/DL 12/21/2010 LIPID GROUP 52190 CHOL 185 MG/DL 12/21/2010 LIPID GROUP 54954 RCHOL/ HDL 4.63 RATIO 12/21/2010 THYROID STIMULATING HORMONE 16065 TSH 1.876 uIU/ML 1 COMPLETE BLOOD COUNT 51701 WBC 7.0 10e9/L 12/21/2010 COMPLETE BLOOD COUNT 28001 RBC 4.28 10e12/L 1 COMPLETE BLOOD COUNT 75184 HGB 12.1 g/dL 12/21/2010 COMPLETE BLOOD COUNT 24949 HCT DET 36.1 % 12/21/2010 COMPLETE BLOOD COUNT 64686 MCV 84.3 fL 12/21/2010 COMPLETE BLOOD COUNT 47383 MCH 28.3 pg 12/21/2010 COMPLETE BLOOD COUNT 30979 MCHC 33.5 g/dL 12/21/2010 COMPLETE BLOOD COUNT 49137 PLT 306 10e9/L 12/21/2010 COMPLETE BLOOD COUNT 09757 MPV 10.4 fL 12/21/2010 COMPLETE BLOOD COUNT 80842 ROLAND % 69.9 % 12/21/2010 COMPLETE BLOOD COUNT 69227 LY % 22.2 % 12/21/2010 COMPLETE BLOOD COUNT 51080 MON % 5.7 % 12/21/2010 COMPLETE BLOOD COUNT 83938 EOS % 1.9 % 12/21/2010 COMPLETE BLOOD COUNT 46232 BASO % 0.3 % 12/21/2010 COMPLETE BLOOD COUNT 49429 RDW 14.0 % 12/21/2010 COMPLETE BLOOD COUNT 96255 ABS ROLAND 4.89 10e9/L 12/21/2010 COMPLETE BLOOD COUNT 15309 ABS LYMPH 1.55 10e9/L 12/21/2010 COMPLETE BLOOD COUNT 29545 ABS MONO 0.40 10e9/L 12/21/2010 COMPLETE BLOOD COUNT 21203 ABS EOS 0.13 10e9/L 12/21/2010 COMPLETE BLOOD COUNT 92654 ABS BASO 0.02 10e9/L 12/21/2010 COMPLETE BLOOD COUNT 44447 RDW-SD 41.5 fL 12/21/2010 FREE T4 45868 FREE T4 1.02 NG/DL 12/21/2010 COMPREHENSIVE METABOLIC 51287 AST 11 U/L 12/21/2010 COMPREHENSIVE METABOLIC 99876 ALT 9 IU/L 12/21/2010 COMPREHENSIVE METABOLIC 01058 BUN 16 MG/DL 12/21/2010 COMPREHENSIVE METABOLIC 98768 ALBUMIN 4.0 GM/DL 12/21/2010 COMPREHENSIVE METABOLIC 40202 CHLORIDE 106 MMOL/L 12/21/2010 COMPREHENSIVE METABOLIC 03515 BILI TOT 0.3 MG/DL 12/21/2010 COMPREHENSIVE METABOLIC 92684 ALK PHOS 59 U/L 12/21/2010 COMPREHENSIVE METABOLIC 33901 SODIUM 139 MMOL/L 12/21/2010 COMPREHENSIVE METABOLIC 88062 CREATININE 0.66 MG/DL 12/21/2010 COMPREHENSIVE METABOLIC 69021 CALCIUM 8.9 MG/DL 12/21/2010 COMPREHENSIVE METABOLIC 34566 POTASSIUM 4.2 MMOL/L 12/21/2010 COMPREHENSIVE METABOLIC 24120 PROT TOT 6.5 GM/DL 12/21/2010 COMPREHENSIVE METABOLIC 51129 Glucose 101 MG/DL 12/21/2010 COMPREHENSIVE METABOLIC 13056 BICARB 28 MMOL/L 12/21/2010 COMPREHENSIVE METABOLIC 49559 ANION GAP 5 MEQ/L 12/21/2010 GFR CALC 8661580 GFR AA >60 ML/MIN 12/21/2010 GFR CALC 5974783 GFR NON -AA >60 ML/MIN 12/21/2010 LIPID GROUP [address] 40 MG/DL 12/10/2009 LIPID GROUP 16576 TRIG 98 MG/DL 12/10/2009 LIPID GROUP 64472 TEST L DL 128 MG/DL 12/10/2009 LIPID GROUP 56569 CHOL 188 MG/DL 12/10/2009 LIPID GROUP 81051 RCHOL/ HDL 4.70 RATIO 12/10/2009 DF 3827558 POLY 74 % 12/09/2009 DF 7642929 BAND 0 % 12/09/2009 DF 8698481 LYMP 21 % 12/09/2009 DF 3206619 MONO 3 % 12/09/2009 DF 0730207 EOS 2 % 12/09/2009 DF 4184518 BASO 0 % 12/09/2009 GFR CALC 6150157 GFR AA >60 ML/MIN 12/09/2009 GFR CALC 6309173 GFR NON -AA >60 ML/MIN 12/09/[address] 7877346 WBC 8.7 10e9/L 12/09/[address] 2375570 RBC 4.78 10e12/L 12/09/[address] 1496978 HGB 13.2 g/dL 12/09/[address] 9591160 HCT DET 40.2 % 12/09/[address] 4768793 MCV 84.1 fL 12/09/[address] 6658889 MCH 27.6 pg 12/09/[address] 4493873 MCHC 32.8 g/dL 12/09/[address] 0990048 PLT 374 10e9/L 12/09/[address] 0747940 MPV 11.0 fL 12/09/[address] 5942545 ROLAND % 70.2 % 12/09/[address] 2434[address] RDW 14.4 % 12/09/[address] 7967633 RDW-SD 44.7 fL 12/09/[address] 7927[address] LY % 22.4 % 12/09/[address] 3810932 MON % 6.2 % 12/09/[address] 8120317 EOS % 1.0 % 12/09/[address] 3987668 BASO % 0.2 % 12/09/[address] 9949691 ABS ROLAND 6.08 10e9/L 12/09/[address] 0897905 ABS LY MPH 1.94 10e9/L 12/09/[address] 1189239 ABS MO NO 0.54 10e9/L 12/09/[address] 5726653 ABS EOS 0.09 10e9/L 12/09/[address] 3962145 ABS BA SO 0.02 10e9/L 12/09/2009 THYROID STIMULATING HORMONE 27304 TSH 1.916 uIU/ML 0 COMPREHENSIVE METABOLIC 93849 AST 13 U/L 12/09/2009 COMPREHENSIVE METABOLIC 31066 ALT 13 IU/L 12/09/2009 COMPREHENSIVE METABOLIC 01510 BUN 18 MG/DL 12/09/2009 COMPREHENSIVE METABOLIC 46731 ALBUMIN 4.3 GM/DL 12/09/2009 COMPREHENSIVE METABOLIC 58513 CHLORIDE 106 MMOL/L 12/09/2009 COMPREHENSIVE METABOLIC 35815 BILI TOT 0.5 MG/DL 12/09/2009 COMPREHENSIVE METABOLIC 26022 ALK PHOS 69 U/L 12/09/2009 COMPREHENSIVE METABOLIC 79279 SODIUM 137 MMOL/L 12/09/2009 COMPREHENSIVE METABOLIC 49580 CREATININE 0.69 MG/DL 12/09/2009 COMPREHENSIVE METABOLIC 20210 CALCIUM 9.1 MG/DL 12/09/2009 COMPREHENSIVE METABOLIC 88443 POTASSIUM 4.5 MMOL/L 12/09/2009 COMPREHENSIVE METABOLIC 08522 PROT TOT 6.9 GM/DL 12/09/2009 COMPREHENSIVE METABOLIC 12644 Glucose 97 MG/DL 12/09/2009 COMPREHENSIVE METABOLIC 44170 BICARB 20 MMOL/L 12/09/2009 COMPREHENSIVE METABOLIC 54445 ANION GAP 11 MEQ/L 12/09/2009 Review of [...] No chest tightness 07/20/2018 Respiratory No COPD 03/12/2018 Respiratory No cough 12/2018 Respiratory No dyspnea [...] Procedures Procedure Codes Date ROUTINE VENIPUNCTURE CPT-4: 23668 06/29/2018 ASSAY OF FREE THYROXINE CPT-4: 69875 06/29/2018 ASSAY THYROID STIM H ORMONE CPT-4: 74158 06/29/2018 COMPREHEN METABOLIC PANEL CPT-4: 71709 06/29/2018 COMPLETE CBC W/AUTO DIFF WBC CPT-4: 33389 06/29/2018 LIPID PANEL CPT-4: 68784 06/29/2018 TDAP VACCINE 7 YRS/> IM CPT-4: 92501 06/11/2018 IMMUNIZATION ADMIN CPT- 4: 66540 06/11/2018 ROUTINE VENIPUNCTURE CPT-4: 57700 04/05/2017 ASSAY THYROID STIM H ORMONE CPT-4: 81664 04/05/2017 COMPREHEN METABOLIC PANEL CPT-4: 70243 04/05/2017 COMPLETE CBC W/AUTO DIFF WBC CPT-4: 24768 04/05/2017 LIPID PANEL CPT-4: 62665 04/05/2017 ASSAY OF BLOOD/URIC ACID CPT-4: 58276 04/05/2017 THER/PROPH/DIAG INJ SC/IM CPT-4: 06907 02/12/2016 TRIAMCINOLONE ACET I [place] NOS CPT-4: J3301 02/12/2016 DEXAMETHASONE SODIUM PHOS CPT-4: J1100 02/12/2016 PRESCRIP TRANSMIT A ERX SY CPT-4: G8553 10/01/2015 URINALYSIS NONAUTO W /O SCOPE CPT-4: 88214 10/01/2015 URINE CULTURE/ COLON Y COUNT CPT-4: 80477 10/01/2015 OCCULT BLOOD FECES CPT- 4: 80254 08/04/2015 SPECIMEN HANDLING OF [facility] CPT-4: 23867 08/04/2015 URINALYSIS NONAUTO W /O SCOPE CPT-4: 32497 05/27/2015 URINE CULTURE/ COLON Y COUNT CPT-4: 87077 05/27/2015 THER/PROPH/DIAG INJ SC/IM CPT-4: 85913 03/10/2015 KETOROLAC TROMETHAMI NE INJ CPT-4: J1885 03/10/2015 ROUTINE VENIPUNCTURE CPT-4: 60218 07/29/2014 ASSAY OF FREE THYROXINE CPT-4: 74711 07/29/2014 ASSAY THYROID STIM H ORMONE CPT-4: 29894 07/29/2014 COMPREHEN METABOLIC PANEL CPT-4: 40189 07/29/2014 COMPLETE CBC W/AUTO DIFF WBC CPT-4: 95733 07/29/2014 LIPID PANEL CPT-4: 89147 07/29/2014 ASSAY OF IRON CPT-4: 73436 07/29/2014 ASSAY OF FERRITIN CPT-4: 80381 07/29/2014 VITAMIN B 12 FOLIC ACID CPT-4: 69818|82449 07/29/2014 URINALYSIS NONAUTO W /O SCOPE CPT-4: 80391 05/31/2013 URINE CULTURE/ COLON Y COUNT CPT-4: 46017 05/31/2013 INFLUENZA ASSAY W/OPTIC CPT-4: 73949 05/27/2013 THER/PROPH/DIAG INJ SC/IM CPT-4: 53975 05/27/2013 METHYLPREDNISOLONE 4 0 MG INJ CPT-4: J1030 05/27/2013 TRIAMCINOLONE ACET I [place] NOS CPT-4: J3301 05/27/2013 ROUTINE VENIPUNCTURE CPT-4: 27824 02/26/2013 ASSAY OF FREE THYROXINE CPT-4: 45762 02/26/2013 ASSAY THYROID STIM H ORMONE CPT-4: 11142 02/26/2013 COMPREHEN METABOLIC PANEL CPT-4: 65894 02/26/2013 COMPLETE CBC W/AUTO DIFF WBC CPT-4: 89058 02/26/2013 LIPID PANEL CPT-4: 06514 02/26/2013 ROUTINE VENIPUNCTURE CPT-4: 31224 11/12/2012 COMPLETE CBC W/AUTO DIFF WBC CPT-4: 12797 11/12/2012 MYCOPLASMA ANTIBODY, IFA CPT-4: 95885U1 11/12/2012 ROUTINE VENIPUNCTURE CPT-4: 10640 06/05/2012 ASSAY OF FREE THYROXINE CPT-4: 76021 06/05/2012 ASSAY THYROID STIM H ORMONE CPT-4: 54094 06/05/2012 COMPREHEN METABOLIC PANEL CPT-4: 78192 06/05/2012 COMPLETE CBC W/AUTO DIFF WBC CPT-4: 07140 06/05/2012 LIPID PANEL CPT-4: 30839 06/05/2012 ANTINUCLEAR ANTIBODIES CPT-4: 98238 06/05/2012 RHEUMATOID FACTOR QUANT CPT-4: 78374 06/05/2012 ASSAY OF INSULIN CPT-4: 43288 06/05/2012 A1C GLYCOSYLATED HEM OGLOBIN TEST CPT-4: 47122 06/05/2012 [facility]CIMEN [facility] CPT-4: 18016 12/21/2011 ROUTINE VENIPUNCTURE CPT-4: 23252 04/13/2011 ASSAY THYROID STIM H ORMONE CPT-4: 60512 04/13/2011 METABOLIC PANEL TOTA L CA CPT-4: 67063 04/13/2011 FSH CPT-4: 0163690 04/13/2011 LH CPT-4: 63286 04/13/2011 ASSAY OF ESTRADIOL CPT- 4: 50959 04/13/2011 URINALYSIS NONAUTO W /O SCOPE CPT-4: 11050 02/04/2011 URINE CULTURE/ COLON Y COUNT CPT-4: 70435 02/04/2011 ROUTINE VENIPUNCTURE CPT-4: 85849 12/21/2010 ASSAY OF FREE THYROXINE CPT-4: 30082 12/21/2010 ASSAY THYROID STIM H ORMONE CPT-4: 31330 12/21/2010 COMPLETE CBC W/AUTO DIFF WBC CPT-4: 19722 12/21/2010 COMPREHEN METABOLIC PANEL CPT-4: 03053 12/21/2010 LIPID PANEL CPT-4: 91915 12/21/2010 OCCULT BLOOD FECES CPT- 4: 95964 12/06/2010 ROUTINE VENIPUNCTURE CPT-4: 32179 12/09/2009 CBC WITH MANUAL DIFF ERENTIAL CPT-4: 05090|71731 12/09/2009 COMPREHEN METABOLIC PANEL CPT-4: 01200 12/09/2009 LIPID PANEL CPT-4: 40760 12/09/2009 ASSAY THYROID STIM H ORMONE CPT-4: 62231 12/09/2009 SPECIMEN HANDLING OF [facility] CPT-4: 32837 12/08/2009 THER/PROPH/DIAG INJ SC/IM CPT-4: 86400 09/01/2009 KETOROLAC TROMETHAMI NE INJ CPT-4: J1885 09/01/2009 URINALYSIS NONAUTO W /O SCOPE CPT-4: 19923 08/26/2009 Vital Signs Date Vital 07/20/2018 Blood Pressure 1: 118/80 Code: 8480-6 Heart Rate 1: 68 bpm Respiratory Rate: 20 bpm SpO2: 97% Temperature: 36.6 (C ) / 97.9 (F) Weight: 191 lbs 8 oz 06/29/2018 Heigh t: 5'2" 06/11/2018 Blood Pressure 1: 106/68 Code: 8480-6 BMI: 36.2 Code: 60777-2 Heart Rate 1: 72 bpm Height: 5'2" Respiratory Rate: 20 bpm SpO2: 97% Temperature: 37.1 (C ) / 98.8 (F) Weight: 198 lbs 04/05/2017 Blood Pressure 1: 114/78 Code: 8480-6 BMI: 35.5 Code: 22910-3 Heart Rate 1: 68 bpm Height: 5'2" Respiratory Rate: 20 bpm SpO2: 96% Temperature: 36.9 (C ) / 98.5 (F) Weight: 194 lbs 02/12/2016 Blood Pressure 1: 126/78 Code: 8480-6 BMI: 31.8 Code: 01325-8 Heart Rate 1: 60 bpm Height: 5'2" Respiratory Rate: 24 bpm SpO2: 96% Temperature: 36.2 (C ) / 97.1 (F) Weight: 174 lbs 01/25/2016 Blood Pressure 1: 128/78 Code: 8480-6 BMI: 31.6 Code: 97663-7 Heart Rate 1: 76 bpm Height: 5'2" Respiratory Rate: 20 bpm SpO2: 98% Temperature: 36.5 (C ) / 97.7 (F) Weight: 173 lbs 10/01/2015 Blood Pressure 1: 108/58 Code: 8480-6 BMI: 32.9 Code: 45573-6 Heart Rate 1: 62 bpm Height: 5'2" Respiratory Rate: 20 bpm SpO2: 98% Temperature: 36.2 (C ) / 97.1 (F) Weight: 180 lbs 08/04/2015 Blood Pressure 1: 126/78 Code: 8480-6 BMI: 33.8 Code: 48525-7 Heart Rate 1: 72 bpm Height: 5'2" Respiratory Rate: 20 bpm Temperature: 36.9 (C ) / 98.5 (F) Weight: 185 lbs 05/27/2015 Blood Pressure 1: 132/80 Code: 8480-6 BMI: 36.2 Code: 06110-3 Heart Rate 1: 56 bpm Height: 5'2" Respiratory Rate: 20 bpm Temperature: 37.0 (C ) / 98.6 (F) Weight: 198 lbs 03/10/2015 Blood Pressure 1: 136/82 Code: 8480-6 BMI: 36.2 Code: 55060-7 Heart Rate 1: 88 bpm Height: 5'2" Respiratory Rate: 20 bpm Temperature: 37.0 (C ) / 98.6 (F) Weight: 198 lbs 06/30/2014 Blood Pressure 1: 124/78 Code: 8480-6 BMI: 35.8 Code: 99035-2 Heart Rate 1: 84 bpm Height: 5'2" Respiratory Rate: 20 bpm Temperature: 36.8 (C ) / 98.2 (F) Weight: 196 lbs 08/12/2013 Blood Pressure 1: 114/72 Code: 8480-6 BMI: 35.8 Code: 22423-9 Heart Rate 1: 80 bpm Height: 5'2" [...] 1: 132/86 Code: 8480-6 BMI: 34.9 Code: 04583-4 Heart Rate 1: 72 bpm Height: 5'2" Respiratory Rate: 20 bpm Temperature: 36.9 (C ) / 98.4 (F) Weight: 191 lbs 11/29/2012 Blood Pressure 1: 126/82 Code: 8480-6 BMI: 34.4 Code: 14023-1 Heart Rate 1: 84 bpm Height: 5'2" Respiratory Rate: 20 bpm Temperature: 36.7 (C ) / 98.0 (F) Weight: 188 lbs 11/12/2012 Blood Pressure 1: 110/62 Code: 8480-6 BMI: 34.8 Code: 59144-0 Heart Rate 1: 64 bpm Height: 5'2" Temperature: 36.7 (C ) / 98.1 (F) Weight: 190 lbs 07/30/2012 Blood Pressure 1: 124/82 Code: 8480-6 BMI: 36.0 Code: 22147-9 Heart Rate 1: 84 bpm Height: 5'2" Respiratory Rate: 20 bpm Temperature: 36.5 (C ) / 97.7 (F) Weight: 197 lbs 06/04/2012 Blood Pressure 1: 118/70 Code: 8480-6 BMI: 36.2 Code: 43473-8 Heart Rate 1: 64 bpm Height: 5'2" Temperature: 37.1 (C ) / 98.7 (F) Weight: 198 lbs 12/21/2011 Blood Pressure 1: 132/80 Code: 8480-6 BMI: 33.3 Code: 33188-7 Heart Rate 1: 64 bpm Height: 5'2" Respiratory Rate: 20 bpm Temperature: 36.6 (C ) / 97.8 (F) Weight: 182 lbs 10/07/2011 Blood Pressure 1: 128/72 Code: 8480-6 BMI: 34.4 Code: 99340-2 Heart Rate 1: 80 bpm Height: 5'2" Respiratory Rate: 20 bpm Temperature: 36.8 (C ) / 98.2 (F) Weight: 188 lbs 09/05/2011 Blood Pressure 1: 106/72 Code: 8480-6 BMI: 33.3 Code: 53121-5 Heart Rate 1: 76 bpm Height: 5'2" Respiratory Rate: 20 bpm Temperature: 36.6 (C ) / 97.9 (F) Weight: 182 lbs 04/28/2011 Blood Pressure 1: 110/70 Code: 8480-6 BMI: 34.4 Code: 72929-6 Heart Rate 1: 60 bpm Height: 5'2" Temperature: 37.0 (C ) / 98.6 (F) Weight: 188 lbs 04/13/2011 Blood Pressure 1: 106/84 Code: 8480-6 BMI: 34.4 Code: 65329-0 Heart Rate 1: 80 bpm Height: 5'2" Respiratory Rate: 20 bpm Temperature: 36.6 (C ) / 97.8 (F) Weight: 188 lbs 02/04/2011 Blood Pressure 1: 108/76 Code: 8480-6 BMI: 33.7 Code: 75268-8 Heart Rate 1: 74 bpm Height: 5'2" Weight: 184 lbs 12/06/2010 Blood Pressure 1: 120/72 Code: 8480-6 BMI: 33.3 Code: 04525-7 Heart Rate 1: 76 bpm Height: 5'2" [...] 1: 118/66 Code: 8480-6 BMI: 32.6 Code: 77306-1 Heart Rate 1: 68 bpm Height: 5'2" Temperature: 36.7 (C ) / 98.1 (F) Weight: 178 lbs 09/01/2009 Blood Pressure 1: 118/76 Code: 8480-6 BMI: 34.6 Code: 66652-0 Heart Rate 1: 76 bpm Height: 5'2" [...] amenorrhea 04/05/2017 None cough Location in the roat 02/12/2016 None cough Quality acute 02/12/2016 [...] ago 02/12/2016 None cough Location in the roat 01/25/2016 None cough Quality acute 01/25/2016 [...] years) Menstr ual History last menstrual period 11-06-0912/08 None well woman exam (40-65 years) Menstr [...] Encounters Encounter Performer Loca tion Codes Date ([id number]) OFFICE/OUTPA TIENT VISIT EST Diagnosis: Acute bronchitis, unspecified[ICD10: J20.9] Diagnosis: Acute recurrent maxillary sinusitis[ICD10: J01.01] Nicol NARANJO CPT-4: 14163 07/20/2018 ([id number]) NURSE/OUTPAT IENT VISIT EST Diagnosis: Encounter for general adult medical examination without abnormal findings[ICD10: Z00.00] Diagnosis: Mixed hyperlipidemia[ICD10: E78.2] Caren CEE [facility] CPT-4: 66359 06/29/2018 ([id number]) PREV VISIT E ST AGE 40-64 Diagnosis: Encounter for general adult medical examination without abnormal findings[ICD10: Z00.00] Diagnosis: Encounter for screening mammogram for malignant neoplasm of breast[ICD10: Z12.31] Diagnosis: Essential (primary) hypertension[ICD10: I10] Diagnosis: Migraine with aura, not intractable, without status migrainosus[ICD10: G43.109] Diagnosis: VACCINE FOR TDAP[ICD10: Z23] Caren GARBERLINE Evelyn ANDERS [facility] CPT-4: 60185 06/11/2018 ([id number]) PREV VISIT E AGE 40-64 Diagnosis: Encounter [...] Diagnosis: Pain in unspecified joint[ICD10: M25.50] Caren Jonesjaye CAREN MpRajni RAZA CEE [facility] CPT-4: 94781 04/05/2017 ([id number]) OFFICE/OUTPA TIENT VISIT EST Diagnosis: Acute upper respiratory infection, unspecified[ICD10: J06.9] Diagnosis: Acute maxillary sinusitis, unspecified[ICD10: J01.00] [facility] CPT-4: 68682 02/12/2016 ([id number]) OFFICE/OUTPA TIENT VISIT EST Diagnosis: Acute upper respiratory infection, unspecified[ICD10: J06.9] Diagnosis: Acute maxillary sinusitis, unspecified[ICD10: J01.00] Chiara Rivas RAZAJAYE [facility] CPT-4: 38886 01/25/2016 ([id number]) OFFICE/OUTPA TIENT VISIT EST Diagnosis: Urinary tract infection, site not specified[ICD10: N39.0] Chiara ANDERS [facility] CPT-4: 93597 10/01/2015 ([id number]) PREV VISIT E AGE 40-64 Diagnosis: Encounter for gynecological examination (general) (routine) without abnormal findings[ICD10: Z01.419] Diagnosis: Encounter for general adult medical examination without abnormal findings[ICD10: Z00.00] Diagnosis: Migraine, unspecified, not intractable, without status migrainosus[ICD10: G43.909] Diagnosis: Essential (primary) hypertension[ICD10: I10] Caren CEE [facility] CPT-4: 16559 08/04/2015 ([id number]) OFFICE/OUTPA TIENT VISIT EST Diagnosis: Menopausal and female climacteric states[ICD10: N95.1] Diagnosis: Dysuria[ICD10: R30.0] Caren [facility]ERS [facility] CPT-4: 20703 05/27/2015 OFFICE/OUTPATIENT SIT EST Diagnosis: Persistent migraine 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 cerebral infarction, intractable, with status migrainosus[ICD10: G43.511] Diagnosis: Unspecified convulsions[ICD10: R56.9] Caren CEE [facility] CPT-4: 93740 03/10/2015 ([id number]) OFFICE/OUTPA TIENT VISIT EST Diagnosis: HYPERLIPIDEMIA NEC/NOS[ICD9: 272.4] Diagnosis: HYPERTENSION[ICD9: 401.9] Diagnosis: MALAISE AND FATIGUE[ICD9: 780.79] Diagnosis: ANEMIA NOS[ICD9: 285.9] Caren [facility]ERS [facility] CPT-4: 59917 07/29/2014 ([id number]) PREV VISIT E ST AGE 40-64 Diagnosis: ROUTINE MEDICAL EXAM[ICD9: V70.0] Diagnosis: HYPERTENSION[ICD9: 401.9] Diagnosis: MIGRAINE NOS/NOT INTRCBL[ICD9: 346.90] Diagnosis: GERD[ICD9: 530.81] [facility] 87003 06/30/2014 ([id number]) OFFICE/OUTPA TIENT VISIT EST Diagnosis: ALLERGIC RHINITIS[ICD9: 477.9] Diagnosis: DERMATITIS NOS[ICD9: 692.9] Caren GreshamRajni [facility] CPT-4: 85867 08/12/2013 OFFICE/OUTPATIENT SIT EST Diagnosis: HEMATURIA NOS[ICD9: 599.70] Diagnosis: COUGH[ICD9: 786.2] Diagnosis: BRONCHITIS, ACUTE[ICD9: 466.0] Diagnosis: URINARY TRACT INFECTION[ICD9: 599.0] Lyndsey MichelleJennaamerica GARBERLINE Evelyn Clay [employer] [facility] CPT-4: 52570 05/31/2013 OFFICE/OUTPATIENT SIT EST Diagnosis: COUGH[ICD9: 786.2] Diagnosis: SINUSITIS, ACUTE[ICD9: 461.9] Diagnosis: FEBRILE ILLNESS[ICD9: 780.60] Lyndsey MichelleJennaamerica GreshamRajni [facility] CPT-4: 66933 05/27/2013 ([id number]) OFFICE/OUTPA TIENT VISIT EST Diagnosis: DERMATITIS NOS[ICD9: 692.9] Diagnosis: Tinea cruris[ICD9: 110.3] Caren Chago GARBERLINE MpRajni [facility] CPT-4: 94452 02/26/2013 OFFICE/OUTPATIENT SIT EST Diagnosis: Rash[ICD9: 782.1] Anni CHAUDHARY MpRajni [facility] CPT-4: 87909 11/29/2012 OFFICE/OUTPATIENT SIT EST Diagnosis: COUGH[ICD9: 786.2] Diagnosis: SINUSITIS, ACUTE[ICD9: 461.9] Diagnosis: PHARYNGITIS, ACUTE[ICD9: 462] Caren Cobiancara CAREN MpRajni [facility] CPT-4: 36482 11/12/2012 OFFICE/OUTPATIENT SIT EST Diagnosis: COUGH[ICD9: 786.2] Diagnosis: SINUSITIS, ACUTE[ICD9: 461.9] Diagnosis: Myalgia[ICD9: 729.1] Caren CHAUDHARY MpRajni [facility] CPT-4: 33038 07/30/2012 ([id number]) OFFICE/OUTPA TIENT VISIT EST Diagnosis: JOINT PAIN-UNSPEC[ICD9: 719.40] Diagnosis: Rash and nonspecific skin eruption[ICD9: 782.1] Caren CEE [facility] CPT-4: 55198 06/05/2012 OFFICE/OUTPATIENT SIT EST Diagnosis: Rash[ICD9: 782.1] Diagnosis: Joint pain[ICD9: 719.40] Caren [facility] CPT-4: 15496 06/04/2012 ([id number]) PREV VISIT E ST AGE 40-64 Diagnosis: ROUTINE GYNE EXAM[ICD9: V72.31] Diagnosis: ROUTINE MEDICAL EXAM[ICD9: V70.0] Diagnosis: MIGRAINE NOS/NOT INTRCBL[ICD9: 346.90] Caren [facility]EE [facility] CPT-4: 68992 12/21/2011 OFFICE/OUTPATIENT SIT EST Diagnosis: Hemorrhoid[ICD9: 455.6] Diagnosis: Constipation[ICD9: 564.00] Diagnosis: Rash[ICD9: 782.1] Caren [facility] CPT-4: 85250 10/07/2011 OFFICE/OUTPATIENT SIT EST Diagnosis: HYPERTENSION[ICD9: 401.9] Diagnosis: MIGRAINE NOS/NOT INTRCBL[ICD9: 346.90] Diagnosis: DIZZINESS/VERTIGO[ICD9: 780.4] Diagnosis: EUSTACHIAN TUBE DYSFUNCTION[ICD9: 381.81] Diagnosis: Plantar warts[ICD9: 078.12] Caren [facility] CPT-4: 98134 09/05/2011 OFFICE/OUTPATIENT SIT EST Diagnosis: SINUSITIS, ACUTE[ICD9: 461.9] Diagnosis: COUGH[ICD9: 786.2] Diagnosis: PHARYNGITIS, ACUTE[ICD9: 462] Diagnosis: DIARRHEA[ICD9: 787.91] Caren 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 ORENDER DO [employer] CPT-4: 87437 12/06/2010 ([id number]) OFFICE/OUTPA TIENT VISIT, EST Caren CHAUDHARY S. ORE NDER DO [employer] CPT-4: 12876 04/14/2010 ([id number]) OFFICE/OUTPA TIENT VISIT, EST Caren CHAUDHARY [facility] CPT-4: 16816 02/16/2010 ([id number]) OFFICE/OUTPA TIENT VISIT, EST Caren CHAUDHARY [facility] CPT-4: 63384 02/03/2010 ([id number]) OFFICE/OUTPA TIENT VISIT, EST Caren CHAUDHARY [facility] CPT-4: 21804 01/27/2010 ([id number]) OFFICE/OUTPA TIENT VISIT, EST Caren CHAUDHARY [facility] CPT-4: 33709 01/25/2010 ([id number]) PREV VISIT, EST, AGE 40-64 Anni [facility] CPT-4: 01002 12/08/2009 ([id number]) OFFICE/OUTPA TIENT VISIT, EST Caren [facility] CPT-4: 03458 09/01/2009 Plan of Care Planned Activity Notes [...] ICD-10 : J20.9 07/20/2018 Appointment: Nicol Arroyo [facility] [address] 07/20/2018 Patient Education: prednisone- [employer] Coupon [phone] Completed 07/20/2018 Patient Education: [facility] - Saving AutoInj - Ventolin HFA - 18-64 - Dynamic Portal ID Completed 07/20/2018 Patient Education: azithromycin- [employer] Coupon [phone] Completed 07/20/2018 Appointment: Caren Anders WPtel: [facility] [address] LAB 06/29/2018 Visit Diagnosis Plan: Encounter for [...] G43.109 06/11/2018 Appointment: Caren Anders WPtel: [phone] [facility] Annual Well Visit 06/11/2018 Patient Education: Valtrex- [employer] Coupon [id number] Completed 06/11/2018 Patient Education: mupirocin calcium- Op [employer] Coupon [id number] Completed 06/11/2018 Visit Diagnosis Plan: Encounter for [...] I10 04/05/2017 Visit Diagnosis Plan: Encounter for [facility] medical examination without abnormal findings Discussion: Fating lab drawn Update colonoscopy ICD-9 : V70.9 ICD-10 : Z00.00 04/05/2017 Appointment: Caren Anders WPtel: [phone] [facility] Annual Well Visit 04/05/2017 Patient Education: Patient Medication Summary Completed 04/05/2017 Care Plan: Referral Order SNOMED-CT : [id number] Pending 04/05/2017 Patient Education: Patient Medication Summary Completed 08/02/2016 Care Plan: MAMMOGRAM SCREENING LOINC : 30511-4 Pending 08/02/2016 Visit Plan: Injection as above [...] Follow up PRN 02/12/2016 [facility] 02/10 confirmed~ ACUTE ILLNESS 02/12/2016 Patient Education: Patient Medication Summary Completed 02/12/2016 Visit Plan: Rxs as above OTC meds r eviewed - avoid decongestants Rest, fluids, vicks, humidifier, etc Follow up PRN 01/25/2016 Visit Plan: Rxs as above OTC meds r eviewed - avoid decongestants Rest, fluids, vicks, humidifier, etc Follow up PRN 01/25/2016 Appointment: [facility] [facility] ACUTE [facility]LLNESS 01/25/2016 Patient Education: Patient [...] up PRN 10/01/2015 Appointment: Chiara Phelan [address] [facility] ACUTE ILLNESS 10/01/2015 Patient Education: Patient Medication Summary Completed 10/01/2015 Visit Plan: Obtain lab results Pap done Mammogram ordered Patient awaiting on Dr. Cuello to restart botox for migraines 08/04/2015 Appointment: Caren Anders WPtel: [facility]676[facility] 08/02confirmed-sp Annual Well Visit 08/04/2015 Patient Education: Patient Medication Summary Completed 08/04/2015 Care Plan: MAMMOGRAM SCREENING LOINC : 09204-3 Ordered 08/04/2015 Patient Education: Patient Medication Summary Completed 07/29/2015 Care Plan: CBC Ordered 07/29/2015 Visit Plan: Discussed likely perime nopause Will observe through July and then at [facility] with fasting lab including hormone levels If bleeding returns will proceed with pelvic US Check into chiropractor for ma nipulation for right low back/hip pain 05/27/2015 Visit Plan: Discussed likely perime nopause Will observe through July and up then at [facility] with fasting lab including hormone levels If bleeding returns will proceed with pelvic US Check into chiropractor for ma nipulation for right low back/hip pain 05/27/2015 Appointment: Caren Anders WPtel: [address] [place], [place] [phone] 05/26/15 vm cn 05/26/15 appt confirmed c n ACUTE ILLNESS 05/27/19 Patient Education: Patient Medication Summary Completed 05/27/2015 Referral: Ignacio Esposito WPtel: [facility] [address] [id number] [place] Referral Initiated 04/07/2015 Referral: Caren Anders WPtel: [address] [place], [place] [phone] 03/26/15 Arrival time 9:30 am Procedure 9:45 am. @ [email or web address] [address] Come sleep deprived(4 hours or less) clean hair, no product in hair, no caffeen Initiated 03/26/2015 Visit Plan: Toradol now with compaz ine po when gets home Proceed with updated EEG/neurology evaluation--discussed may need to go on antiseizure meds and drop out of migraine study No driving for 6mos Discussed magaly Cuello at [facility] in [place]--he wants to see her in next 1-2weeks 03/10/2015 Appointment: Caren Anders WPtel: [address] [place], [place] [phone] ACUTE ILLNESS 03/10/2015 Patient Education: Patient Medication Summary Completed 03/10/2015 Appointment: Caren Anders WPtel: [address] [place], [place] [phone] LAB 07/29/2014 Patient Education: Patient Medication Summary Completed 07/29/2014 Visit Plan: Check Fasting lab Mammo gram ordered Pap next year Lamisil for 3mos with monthly LFTs 06/30/2014 Appointment: Caren Anders WPtel: [address] [place], [place] [phone] Annual Well Visit 06/30/2014 Patient Education: Patient Medication Summary Completed 06/30/2014 Appointment: Caren Anders WPtel: [address] [place], [place] [phone] Annual Well Visit 06/18/2014 Appointment: Caren Anders WPtel: [address] [place], [place] [phone] ACUTE ILLNESS 06/03/2014 Appointment: Lyndsey Thorpe WPtel: [address] [place], [place] [phone] 02/05 ACUTE ILLNESS 02/06/2014 Visit Plan: Benadryl 25mg q HS Clar itin 10mg q AM Prednisone for 1week Call in 1week on cough and rash 08/12/2013 Appointment: Caren Anders WPtel: [address] [place], [place] [phone] 08/09 FOLLOW UP 08/12/2013 Patient Education: Patient Medication Summary Completed 08/12/2013 Visit Plan: To [facility] for CXR PA and Lateral Added Macrobid to current antibiotics. Recommended referal to Dr Alejo's office for resistant UTI's 05/31/2013 Appointment: Lyndsey Thorpe WPtel: [address] [place], [place] [phone] ACUTE ILLNESS 05/31/2013 Patient Education: Patient Medication Summary Completed 05/31/2013 Visit Plan: Kenalog 40 mg / Depo Me droll 40 mg IM now Complete antibiotics. 05/27/2013 Appointment: Lyndsey Thorpe WPtel: [address] [place], [place] [phone] ACUTE ILLNESS 05/27/2013 Patient Education: Patient Medication Summary Completed 05/27/2013 Visit Plan: Lamisil for 3mos Nystat in/TAC topically Check fasting lab 02/26/2013 Appointment: Caren Anders WPtel: [address] [place], [place] [phone] 02/25 ACUTE ILLNESS 02/26/2013 Patient Education: Patient [...] Mycoplasma infection) 11/29/2012 Appointment: Anni Brennan WPtel: [address] [place], [place] [phone] FOLLOW UP 11/29/2012 Patient Education: Patient Medication Summary Completed 11/29/2012 Visit Plan: CBC and mycoplasma lab draw. Levaquin and medrol dose pack with codeine/guiaf cough syrup. 11/12/2012 Appointment: Anni Brennan WPtel: [address] [place], [place] [phone] ACUTE ILLNESS 11/12/2012 Patient Education: Patient Medication Summary Completed 11/12/2012 Visit Plan: Azithromyacin and medro l dose pack. Will focus on hydration and rest. Pt. will notify if symptoms worsen or do not improve. 07/30/2012 Appointment: Anni Brennan WPtel: [address] [place] [address] ACUTE ILLNESS 07/30/2012 Patient Education: Patient Medication Summary Completed 07/30/2012 Appointment: Caren Anders WPtel: [address] [place], [place] [phone] LAB 06/05/2012 Patient Education: Patient Medication Summary [...] from scratching. 06/04/2012 Appointment: Anni Brennan WPtel: [address] [place], [place] [phone] ACUTE ILLNESS 06/04/2012 Patient Education: Patient Medication Summary Completed 06/04/2012 Visit Plan: Pap done Mammo ordered Pt has started botox for Migraines--next shots end of this month Fasting lab in 12/21/2011 Appointment: Caren Anders WPtel: [address] [place], [place] [phone] PAP 12/21/2011 Patient Education: Patient Medication Summary Completed 12/21/2011 Visit Plan: Encouraged fluids and c ontinued use of stool softener. Pt. reports long standing concerns with constipation. Discussed that will likely proceed with colonoscopy. Referral to Dr. Long. Will apply beta methasone to rash and use rectal foam and topical dibucaine. 10/07/2011 Appointment: Anni Brennan WPtel: [address] [place] [address] ACUTE ILLNESS 10/07/2011 Patient Education: Patient Medication [...] for now 09/05/2011 Appointment: Caren Anders WPtel: [address] [place] [address] FOLLOW UP 09/05/2011 Patient Education: Patient Medication Summary Completed 09/05/2011 Visit Plan: imodium. Discussed the importance of hydration. Phoned Cefuroxime and codeine/guiaf into [facility]. Pt. will notify if symptoms worsen. 04/28/2011 Appointment: Anni Brennan WPtel: [address] [place] [address] ACUTE ILLNESS 04/28/2011 Patient Education: Patient Medication Summary Completed 04/28/2011 Visit Plan: Use Aleve BID Observe n ose and finger Check Chem 7, estradiol, FSH, LH, TSH 04/13/2011 Appointment: Caren Anders WPtel: [address] [place] [address] ACUTE ILLNESS 04/13/2011 Patient Education: Patient Medication Summary Completed 04/13/2011 Visit Plan: Septra ds. and Pyridium . Urine sent for culture. Pt. will be notified of culture results. Pt will notify if symptoms are worsening. Will consider lab and imaging studies if symptoms worsen. 02/04/2011 Appointment: Anni Brennan WPtel: [address] [place], [place] [phone] ACUTE ILLNESS 02/04/2011 Patient Education: Patient Medication Summary Completed 02/04/2011 Appointment: Caren Anders WPtel: [phone] [facility] [facility] LAB 12/21/2010 Patient Education: Patient Medication Summary Completed 12/21/2010 Visit Plan: Dec 13. appnt with trevon chamorro specialist. will ask about EEG at next appnt. Fasting labs: CBC, CMP, TSH, Free T4 and Lipids. Discussed slight discoloration above rt. eyebrow. Will consider surgical refer ral if area does not resolve. Mammo scheduled. 12/06/2010 Appointment: Anni Brennan WPtel: [address] [place], [place] [phone] PAP 12/06/2010 Patient Education: Patient Medication Summary [...] colon cancer 04/14/2010 Appointment: Caren Anders WPtel: [address] [place], [place] [phone] US FOLLOW UP 04/14/2010 Patient Education: Patient Medication Summary Completed 04/14/2010 Appointment: Caren Anders WPtel: [address] [place], [place] [id number] [place] LAB 03/17/2010 Visit Plan: Increase Topamax to 50m g BID Cont Flexeril See Neurology next week 02/16/2010 Appointment: Caren Anders WPtel: [address] [facility] [place] FOLLOW UP 02/16/2010 Patient Education: Patient Medication Summary Completed 02/16/2010 Visit Plan: Pt will seek re-eval if symptoms worsen. 02/03/2010 Appointment: Anni Brennan WPtel: [address] [place], [place] [phone] ACUTE ILLNESS 02/03/2010 Patient Education: Patient Medication Summary Completed 02/03/2010 Visit Plan: Start Topamax for proph ylaxis See Neurology Discussed triggers such as chocolate Start Cipro as ordered May try Midrin and Compazine as ordered Off work rest of week 01/27/2010 Appointment: Caren Anders WPtel: [address] [place], [place] [phone] ER Follow UP 01/27/2010 Patient Education: Patient Medication Summary Completed 01/27/2010 Visit Plan: Check CT head Suspect c omplex migraine vs TIA--esequiel await CT results 01/25/2010 Appointment: Caren Anders WPtel: [address] [place], [place] [phone] ACUTE ILLNESS 01/25/2010 Patient Education: Patient Medication Summary Completed 01/25/2010 Appointment: Caren Anders WPtel: [address] [place], [place] [phone] LAB 12/09/2009 Patient Education: Patient Medication Summary Completed 12/09/2009 Visit Plan: Claudia will come in [facility] for Lipids, CBC, CMP and TSH. Mammo is scheduled with [facility]. 12/08/2009 Appointment: Anni Brennan WPtel: [address] [place], [place] [phone] PAP 12/08/2009 Patient Education: Patient Medication Summary Completed 12/08/2009 Visit Plan: Add Macrobid Toradol gi weston Zipsor 25mg QID for 5 days OMT done Call in 2days on back 09/01/2009 Appointment: Caren Anders WPtel: [address] [place], [place] [phone] ACUTE ILLNESS 09/01/2009 Patient Education: Patient Medication Summary Completed 09/01/2009 Appointment: Caren Anders WPtel: [id number] [place] LAB 08/26/2009 Patient Education: Patient Medication Summary Completed 08/26/2009 Referral: Partha Long WPtel: [id number] [place] Referral sent. Dr. Coburn's office will [...] for 6mos Discuss[address] with Dr. Cuello at [facility] in [place]--he wants to see her in next 1-2weeks [...] for right low back/hip pain . To [facility] r CXR PA and Lateral Added Macrobid [...] CMP and TSH. Mammo is scheduled with [facility]. . Septra ds. and Py ridium. [...] codeine/guiaf cough syrup. . Dec 13. appnt [facility] headache specialist. will ask about EEG at [...]
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
[2019-10-11] MEDS ORDERED: RX-ONDANSETRON 4 MG ODT (ZOFRAN) PPK #4 PO STA (19:38)
--- NOTE | 2019-10-11 20:20 | Diagnostic Imaging Report ---
INDICATION: Right elbow injury. EXAMINATION: Three views of the right elbow were obtained. FINDINGS: There is a large joint effusion. There is a suspected radial head impacted fracture. IMPRESSION: Large joint effusion with suspected nondisplaced impacted radial head fracture. Recommend follow-up radiographs in 7-10 days. Dictated by: Dictated on workstation # [id number]
[2019-10-11] MEDS ORDERED: HYDR-3870 PO ×2 (20:25→21:17)
[2019-10-11] MEDS ORDERED: RX-HYDROCODONE/APAP 5/325 MG #4 TAB PK PO PRN (20:45)
[2019-10-11 20:56] VITALS: BP 130/77
== END 2019-10-11 20:57 | disposition home or self-care (01) ==
LOC: EDUNIT# 18:22 → ER 18:24
DX: S06.0X9A Concussion with loss of consciousness of unspecified duration, initial encounter (principal); S52.125A Nondisplaced fracture of head of left radius, initial encounter for closed fracture; S01.81XA Laceration without foreign body of other part of head, initial encounter; S40.011A Contusion of right shoulder, initial encounter; I10 Essential (primary) hypertension; G43.909 Migraine, unspecified, not intractable, without status migrainosus; K21.9 Gastro-esophageal reflux disease without esophagitis; Z88.0 Allergy status to penicillin; Z79.82 Long term (current) use of aspirin; Z23 Encounter for immunization; V18.4XXA Pedal cycle driver injured in noncollision transport accident in traffic accident, initial encounter
CPT/HCPCS: 29105; 70450; 70486; 72125; 72170; 73030; 73080; 90471; 90715